=== PATIENT | female | born 1955 | race Caucasian/White ===

== ENCOUNTER → 2017-06-15 07:43 | Outpatient (CLI) | payer OTHER, SELFPAY ==
[2017-06-15 09:18] LABS: Hemoglobin A1c 7.2 % (4.2-6.3)
[2017-06-15 09:19] LABS: ALB/GLOB Ratio 0.9 RATIO (0.9-2.4); AST(SGOT) 13 U/L (15-37); Alanine Aminotransfer ALT/SGPT 18 U/L (13-56); Albumin, Serum 3.3 g/dL (3.2-5.0); Alkaline Phosphatase 57 U/L (45-117); Anion Gap 9 (5-15); BUN 14 mg/dL (7-18); Calcium,Total 8.8 mg/dL (8.5-10.1); Chloride 103 mmol/L (98-107); Creatinine, Serum 0.78 mg/dL (0.55-1.02); EST Glomerular Filtration Rate 80 mL/min (>60); Est Glom Filt Rate - Afr Amer 97 mL/min (>60); Globulin 3.7 g/dL (2.2-4.2); Glucose 144 mg/dL (74-106); Sodium Level 140 mmol/L (136-145)
== END ==
PROVIDERS: Family Provider Family Medicine; PCP Family Medicine; Visit Provider Nurse Practitioner
DX: E11.9 Type 2 diabetes mellitus without complications (principal)
CPT/HCPCS: 36415; 80053; 83036

== ENCOUNTER → 2017-10-01 17:05 | Outpatient (CLI) | payer OTHER, SELFPAY ==
[2017-10-01 18:52] LABS: ALB/GLOB Ratio 0.9 RATIO (0.9-2.4); AST(SGOT) 12 U/L (15-37); Alanine Aminotransfer ALT/SGPT 20 U/L (13-56); Albumin, Serum 3.6 g/dL (3.2-5.0); Alkaline Phosphatase 64 U/L (45-117); Anion Gap 7 (5-15); BUN 17 mg/dL (7-18); BUN/Creat Ratio 21.2 RATIO (10-20); Calcium,Total 9.6 mg/dL (8.5-10.1); Chloride 105 mmol/L (98-107); EST Glomerular Filtration Rate 77 mL/min (>60); Est Glom Filt Rate - Afr Amer 93 mL/min (>60); Globulin 4.1 g/dL (2.2-4.2); Glucose 122 mg/dL (74-106); Hemoglobin A1c 7.5 % (4.2-6.3); Potassium 4.2 mmol/L (3.5-5.1); Protein, Total 7.7 g/dL (6.4-8.2); Sodium Level 139 mmol/L (136-145); Thyroid Stim Hormone (TSH) 1.95 uIU/mL (0.358-3.74)
== END ==
PROVIDERS: Family Provider Family Medicine; PCP Family Medicine; Visit Provider Nurse Practitioner
DX: E11.9 Type 2 diabetes mellitus without complications (principal)
CPT/HCPCS: 36415; 80053; 83036; 84443

== ENCOUNTER → 2017-12-16 16:37 | Outpatient (CLI) | payer OTHER, SELFPAY ==
--- OUTSIDE RECORDS SUMMARY | 2017-12-14 07:55 | XMS RPT_ITS ---
:1955 Author Organization [place] Support Name Relationship Address Phone LASTJM Unavailable [address] + [place] [address] MACHOSANDOR Unavailable [address] + [place] [address] [facility] Unavailable [address] + [place] [address] JM ALMAZAN Unavailable [address] + [place] [address] [facility] Unavailable [address] + [place] [address] JM ALMAZAN Unavailable [address] + [place] [address] [facility] Unavailable [address] + [place] [id number] JM ALMAZAN Unavailable [address] [phone] [place] [address] [facility] Unavailable [address] + [place] [id number] JM ALMAZAN Unavailable [address] [phone] [place] [address] [facility] Unavailable [address] + [place] [phone] JM ALMAZAN Unavailable [address] + [place] [address] [facility] Unavailable [address] + [place] [address] JM ALMAZAN Unavailable [address] + [place] [address] [facility] Unavailable [address] + [place] [address] JM ALMAZAN Unavailable [address] + [place] [address] [facility] Unavailable [address] + [place] [address] JM ALMAZAN Unavailable [address] + [place] [address] [facility] Unavailable [address] + [place] [address] JM ALMAZAN Unavailable [address] + [place] [address] [facility] Un[address] + [place] [address] LOUISA ALMAZAN Unavailable [address] + [place] [address] LAST, LOUISA Unavailable [address] + [place] [address] Care Team Providers Name Role Phone AMBER HUDSON, DR. PUSHPA Gonsalves Attending Unavailable AMBER HUDSON, DR. PUSHPA Gonsalevs Primary Care Unavailable NAUMOFF, PUSHPA CRYSTAL Referring Unavailable NAUMOFF, PUSHPA CRYSTAL Referring Unavailable NAUMOFF, PUSHPA CRYSTAL Referring Unavailable ShookLianne LUMBER DRIVER-C Attending Unavailable NAUMOFF, PUSHPA Primary Care Unavailable Jm Michaud Attending Unavailable NAUMOFF, PUSHPA Primary Care Unavailable Cherie Rodriguez PA-C Attending Unavailable NAUMOFF, PUSHPA Referring Unavailable NAUMOFF, PUSHPA Primary Care Unavailable Lianne Garcia LUMBER DRIVER-C Attending Unavailable Lianne Garcia LUMBER DRIVERLanceC Referring Unavailable NAUMOFF, PUSHPA Primary Care Unavailable Lianne Garcia LUMBER DRIVER-C Attending Unavailable NAUMOFF, PUSHPA Referring Unavailable NAUMOFF, PUSHPA Primary Care Unavailable Lianne Garcia LUMBER DRIVER-C Attending Unavailable Lianne Garcia LUMBER DRIVERLanceC Referring Unavailable NAUMOFF, PUSHPA Primary Care Unavailable Lianne Garcia LUMBER DRIVER-C Attending Unavailable NAUMOFF, PUSHPA Referring Unavailable NAUMOFF, PUSHPA Primary Care Unavailable Lianne Garcia LUMBER DRIVER-C Attending Unavailable NAUMOFF, PUSHPA Referring Unavailable NAUMOFF, PUSHPA Primary Care Unavailable Lianne Garcia LUMBER DRIVERLanceC Attending Unavailable Lianne Garcia LUMBER DRIVERLanceC Referring Unavailable NAUMOFF, PUSHPA Primary Care Unavailable Lianne Garcia LUMBER DRIVER-C Attending Unavailable Lianne Garcia LUMBER DRIVER-C Referring Unavailable PUSHPA CLARK Primary Care Unavailable PROBLEMS PROBLEMS DATE TYPE CONDITION / CODE ATTENDING STATUS SOURCE 10/02/2017 Unknown E11.9 - Type 2 Jose Lianne Gonsalves Active [place] diabetes mellitus LUMBER DRIVER-C [facility] complications / Repository E11.9(ICD-10) 06/26/2017 Unknown E11.59 - Type 2 Isismatthew Lianne Gonsalves Active [place] diabetes mellitus LUMBER DRIVER-C [facility] with other [facility] circulatory Repository complications / E11.59(ICD-10) 06/26/2017 Unknown I10 - Essential Jose Lianne Gonsalves Active [place] (primary) LUMBER DRIVER-C Community hypertension / Hospital I10(ICD-10) Repository 02/12/2017 Unknown N63.0 - Unspecified Rodriguez PA-C, Active [place] lump in unspecified [facility] breast / Hospital N63.0(ICD-10) Repository 01/02/2017 Active Unknown / NA Active [facility] UNK(Unknown) [facility] [place] Repository 02/05/2017 Unknown TYPE 2 DIABETES Lianne Garcia Active [place] MELLITUS WITHOUT LUMBER DRIVER-C Community COMPLICATIONS / Hospital E11.9(ICD-10) Repository 12/21/2016 Active Encounter for NA Active [facility] screening mammogram [facility] for malignant [place] neoplasm of breast Repository / Z12.31(ICD-10) 12/17/2016 Admitting Encounter for AMBER HUDSON, Active [facility] Diagnosis screening for DR. PUSHPA Gonsalves [facility] malignant neoplasm Repository of cervix / Z12.4(ICD-10) PROCEDURES PROCEDURES No Procedure Records FoundRESULTS RESULTS ENDOCRINOLOGY VISIT Observed: 10/02/2017 Status: F Source: [place] REPORT 6:48 [facility] REPOSITORY [place] [facility] [id number] [facility]. [address] [place] [address] [phone] VISITDate of Service: 10/01/17MR#: [id number] Acct: [id number]: KIRILL ALMAZAN Rep #: [id number]: 1955 Provider: Lianne Garcia NPAge/Sex: 62/F [facility]: SignedHPIHistory of present illnessKlaudiarileonie Almazan is a 62 year old female with type 2 diabetes. Currently on jardiance,glimepiride and actos. Reports feeling good. Appetite good.Does have some recent issues with increase in OZZY chidi. as well as recent onset dizziness. Uponquestioning patient has started turmeric and CO Q 10. Also reports luch intake on chips anddiet soda. 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 Follows a diabetic diet, Is compliant with medication and is tolerating withoutside effects.SMBG4 times dailyBG 100-160Self monitoring: YesDietary compliance: Diabetes: goodDiabetes education in past year: YesGlucose testing: demonstrates correct use of meterSick day education - understands ketone testing: YesExamConstGeneral: comfortable, no acute distressNutritional Appearance: overweightOrientation: oriented [id number]: normal to inspection, atraumaticEars: hearing grossly normal bilaterallyMouth: oral mucosae normal, moist mucous membranesTeeth and gingiva: dentition normalEyesGeneral: appearance normal, both eyes and all related structuresEyelids: eyelids normalConjunctivae: conjunctivae normalSclera: sclerae normalPupils: PERRLNeckNeck: normal visual inspection, full ROMNeck mass: NoChestChest palpation AND inspection: deferredRespEffort AND Inspection: able to speak in complete sentences, normal respiratory effort, symmetricchest movementAuscultation: Bilateral: Clear to AuscultationCardioRate: regular rateRhythm: regular rhythmHeart Sounds: S1 normal, S2 normalGIInspection: normal to inspectionAuscultation: normal bowel soundsPalpation: soft, no guardingGUGeneral: deferredSkinGeneral: no rashes or lesions notedWounds: no woundsDiabetic FootPulses: L dorsalis pedis pulse: normal, R dorsalis pedis pulse: normalMonofilament test: Left foot: normal, Right foot: normalNeuroGeneral: gait normal, moves all extremities, normal sensation to monofilamentCranial Nerves: CN's II-XI intact bilaterallyExtremGeneral: normal to inspection, full ROM, normal capillary refillPsychAppearance: well kemptMental Status: mental status grossly normalMood: congruent moodAffect: normal affectAttitude: cooperativeThought Process: normalThought Content: normalJudgment: judgment goodWeight and fatigue symptoms: Denies snoringCardiopulmonary symptoms: Denies chest pain at rest, dyspnea on exertion, lightheadedness ormyalgiasGI symptoms: Denies constipation, diarrhea, nausea/dyspepsia or vomitingOther symptoms: Denies blurry vision or change in visionWeight and fatigue symptoms: Denies snoringCardiopulmonary symptoms: Reports myalgias and dizziness; denies chest pain at rest, dyspnea onexertion or lightheadednessGI symptoms: Denies constipation, diarrhea, nausea/dyspepsia or vomitingOther symptoms: Denies blurry vision or change in visionSelf monitoring: YesDiabetes education in past year: YesGlucose testing: demonstrates correct use of meterSick day education - understands ketone testing: YesPhysical activity: regularIntakeVital Signs10/01/17 Height 5 ft 2 in10/01/17 Weight: 236 lb 4 oz10/01/17 Body Mass Index (BMI) 43.207 Blood Pressure 140/ Blood Pressure Location Lt [id number]/24/18 Blood Pressure Position SittingIntakeVisit Reasons: 3 M FUInterpreter Required: NoAccompanied by: SelfIs patient in pain?: NoAllergiesmeperidine [From Demerol] Allergy (Verified 10/01/17 16:06)UnknownMedicationsatenolol 50 mg tablet 50 mg PO QDAY 02/09/17 [History Confirmed 10/01/17]empagliflozin 25 mg tablet 25 mg PO QDAY 02/09/17 [History Confirmed 10/01/17]glimepiride 1 mg tablet 1 mg PO QDAY tab 02/09/17 [History Confirmed 10/01/17]paroxetine 10 mg tablet 10 mg PO QDAY 02/09/17 [History Confirmed 10/01/17]pioglitazone 45 mg tablet 45 mg PO QDAY 02/09/17 [History Confirmed 10/01/17]cholecalciferol (vitamin D3) 400 unit capsule 400 unit PO QDAY 10/01/17 [History Fggxldtko35/24/18]coenzyme Q10 75 mg capsule 75 mg PO QDAY 10/01/17 [History Confirmed 10/01/17]omega-3 fatty acids 500 mg capsule 500 mg PO QDAY 10/01/17 [History Confirmed 10/01/17]tumeric PO 10/01/17 [History Confirmed 10/01/17]Is last menstrual period known: NoPost menopausal: YesPatient : NoNurse's Note: blood sugars :low : 120high : 147PFSHMedical History Arthritis (Acute)Brain bleed (Acute)Breast lump (Acute)Diabetes type 2, controlled (Acute)History of kidney stones (Acute)Migraine (Acute)Seasonal allergic rhinitis (Acute)Hypertension (Chronic)Surgical History History of (Acute)Hx of hand surgery (Acute)Hx of knee surgery (Acute)Hx of tubal ligation (Acute)S/P breast biopsy, left (Acute)Family History Mother Breast cancerArthritisFather ArthritisDiabetesHypertensionHigh cholesterolBrother AsthmaSocial HistorySmoking Status: Never smokersecond hand exposure: Noalcohol intake: neversubstance use type: does not useseatbelt use: alwaysROSConstConstitutional: Positive for fatigue;no anorexia, body ache, chills, fever(s), frequent falls, decreased energy, malaise, nightsweats, weakness, weight change, sleep problems, abnormal sleep pattern, change in appetite,other, headache(s), snoring or excessive sweatingEyesEyes: No blurry vision, change in vision, double vision, discharge, dry eyes, bulging eyes,floaters, visual disturbances, eye pain, light sensitivity, spots in vision, tunnel vision orotherENTENT: Positive for dizziness/vertigo, nasal congestion and nasal discharge;no abnormal hearing, ear pain, ear discharge, ear pressure, hearing loss, tinnitus, balanceproblems, nosebleed/epistaxis, nasal obstruction, nose pain, sinus pressure, sinus pain, postnasal drip, headache(s), facial pain, dental pain, dry mouth, bad breath, hoarseness, lipswelling, mouth lesions, mouth pain, sore throat, tongue swelling, throat swelling, other,difficulty swallowing or neck painRespRespiratory: Positive for cough;no change in phlegm color, chest congestion, excessive phlegm production, hemoptysis, pain oninspiration, shortness of breath, pain with cough, snoring, stridor, wheezing or otherCardioCardiology: Positive for generalized swelling;no chest pain at rest, chest pain with exertion, leg pain with exertion, excessive sweating,shortness of breath, dyspnea on exertion, irregular heart rhythm, lightheadedness, orthopnea,radiating jaw, neck or arm pain, fast heart rate, slow heart rate, palpitations or otherGastroGI: No abdominal pain, belching, bloating, change in bowel habits, change in stool character,coffee ground emesis, constipation, cramping, diarrhea, heartburn, difficulty swallowing,feeling full early, excessive flatus, incontinent of stools, Vomiting blood/hematemesis, bloodin stool, loose stools, Black,tarry stools, nausea/dyspepsia, pain with swallowing, vomiting orotherGUGenitourinary-Female: No difficulty urinating, burning urination, painful urination, urinaryincontinence, urinary frequency, urinary urgency, urinary hesitancy, urinary retention, bloodin urine, Frequent nighttime urination/ nocturia, post void dribbling, suprapubic fullness,side pain, sexual problems, genital lesions, genital itching, hot flashes, abnormal periods,abnormal vaginal bleeding, absent period, painful periods, light periods, heavy periods,difficulty getting , painful intercourse, pelvic pain, vaginal dryness, vaginal odor,Vaginal Itching or otherMuscMusculoskeletal: Positive for joint pain and body aches;no abnormal walking, back pain, deformity, joint swelling, limited range of motion, loss ofheight, muscle cramps, muscle weakness, decreased muscle mass, neck pain, numbness, radiatingpain into limb, stiffness, tingling or otherSkinSkin: No acne, hair loss, change in hair, nail changes, boil, change in skin color, dry skin,redness, excessive hair growth, yellowing of the skin, lesions, itching, rash, skin pain, skinulcer, sores, skin swelling, wounds or otherBreastBreast: No otherNeuroNeurology: Positive for dizziness;no frequent falls, weakness, visual disturbances, abnormal hearing, headache(s), abnormalwalking, numbness or tinglingPsychPsychiatric: No abnormal sleep pattern, No change in appetiteEndoEndocrine: Positive for fatigue;no other or excessive sweatingAller/ImmAllergy/Immunologic: No lip swelling, tongue swelling, throat swelling, wheezing or itchy eyesAssessment AND PlanProblems1. Controlled type 2 diabetes mellitus without complication, without long-term current use ofinsulin E11.92. Hypertension associated with diabetes E11.59; I72NulbPggnoeu portionsFood selections should be healthyChoose more low carb vegetablesAvoid snacks and desserts.Drink waterExercise dailyEat more fresh foods, not canned or processedEat more slowlyFollow up with PCPAvoid sodiumElevate legs.OrdersOrders:Plan DetailAdditional Comments1. Please schedule follow up in 3 months.2. Lab work one week before appointment.3. Discussed importance of regular exercise and recommend starting or continuing a regularexercise program for good health.4. The patient was encouraged to lose weight for good health5. The importance of monitoring blood sugar regularly was reviewed.6. The importance of monitoring the HBA1c level regularly was reviewed.7. The importance of prper foot care and regularly checking feet to prevent sores and loss oflimbs was reviewed.8. The importance of keeping BP at or below 130/80 to prevent stroke, heart attacks, kidneyfailure, blindness was reviewed.Spent approximately 30 minutes with patient with over 50% of time spent in discussion andcounseling regarding medication adjustment, symptoms and treatment of hypoglycemia, dietadherence, and checking BG before driving.CodingLevel of Care CodeOff vis,est,level 4DiagnosesControlled type 2 diabetes mellitus without complication, without long-term current use ofinsulin E11.9Diabetes mellitus fdc insulin use: without fdc useHypertension associated with diabetes E11.59; F78Qvar Spent (min) 0648 <Electronically signed by Lianne Garcia LUMBER DRIVERLanceC>Date Lianne Garcia NP-CCosigner Signature: Date (if applicable)CC: COMPREHENSIVE METABOLIC Collected: 10/01/2017 Status: F Source: [place] MANDA 5:09 PM [facility] [place] CODE TESTS RESULT OUT OF RANGE REFERENCE UNITS LAB L501.0100 High 74-106 mg/dL GLU 122 Result Comment: Fasting Glucose result from 100 to 125 mg/dL suggests IMPAIRED HOMEOSTASIS per A.D.A. criteria. Please note revised GLUCOSE reference range effective 2017. LAB L501.1000 Normal 7-18 mg/dL BUN 17 LAB L501.1100 Normal 0.55-1.02 mg/dL CREAT,SERUM 0.80 Result Comment: The validity of the calculated GFR AND GFRAA in patients over 70 years has not been determined. Clinical correlation is essential. LAB L501.1110 Normal >60 mL/min EST GFR 77 Result Comment: Non- GFR Calc LAB L501.1115 Normal >60 mL/min EST GFR - AA 93 Result Comment: GFR Calc LAB L501.1300 High 10-20 RATIO BUN/CRE 21.2 LAB L501.1500 Normal 6.4-8.2 g/dL T PROT 7.7 LAB L501.1800 Normal 3.2-5.0 g/dL ALB 3.6 LAB L501.1950 Normal 2.2-4.2 g/dL GLOB 4.1 LAB L501.2000 Normal 0.9-2.4 RATIO A/G 0.9 LAB L501.2200 Normal 8.5-10.1 mg/dL CA 9.6 LAB L501.4100 Low 15-37 U/L AST 12 LAB L501.4305 Normal 45-117 U/L ALK P 64 LAB L501.4405 Normal 13-56 U/L ALT 20 LAB L501.4600 Normal 0.20-1.00 mg/dL T BILI 0.30 LAB L501.5300 Normal 136-145 mmol/L NA 139 LAB L501.5600 Normal 3.5-5.1 mmol/L K 4.2 LAB L501.5900 Normal 98-107 mmol/L CL 105 LAB L501.6100 Normal 21.0-32.0 mmol/L CO2 27.0 LAB L501.6200 Normal 5-15 GAP 7 Performed By: #### L500.4050, L501.9520 #### [facility] [address] [place], [place], [address] THYROID STIM HORMONE Collected: 10/01/2017 Status: F Source: [place] (TSH) 5:09 PM [facility] [place] TYPE CODE TESTS RESULT OUT OF RANGE REFERENCE UNITS LAB L501.9520 Normal 0.358-3.74 uIU/mL TSH 1.95 Performed By: #### L500.4050, L501.9520 #### [facility] [address] [place], [address] HEMOGLOBIN A1C Collected: 10/01/2017 Status: F Source: [place] 5:09 PM [facility] [place] TYPE CODE TESTS RESULT OUT OF RANGE REFERENCE UNITS LAB L501.9985 High 4.2-6.3 % HGB 7.5 A1C Performed By: #### L501.9985 #### [facility] [address] [place], [place], [address] ENDOCRINOLOGY VISIT Observed: 06/25/2017 Status: F Source: [place] REPORT 7:39 PM [facility] [place] [facility] [id number] [facility]. [address] [place] [address] [phone] VISITDate of Service: 06/25/17#: [id number] Acct: [id number]: KIRILL ALMAZAN Rep #: [id number]: 1955 Provider: Lianne Garcia NPAge/Sex: 62/F [facility] [place].WEGStatus: SignedHPIHistory of present illnessKirill Almazan is a 62 year old female with type 2 diabetes. Currently on jardiance,glimepiride and actos. Reports feeling good. Appetite good.At time of visit:-Pt denies symptoms of hypertensive emergency (CP,SOB,CAMACHO, or blurred vision) andhypotension(dizziness or lightheadedness)-Pt denies symptoms of hypoglycemia ( sweaty, confusion, anxiety, tremor, hunger, palpitations)and hyperglycemia ( polydipsia, polyuria)-Pt denies potential medication adverse effect.HypoglycemiaAware of hypoglycemia: yesAble to self treat low BG: YesFrequent low Blood sugar: NoHas supply of glucagon: noSince our last visit she denies excessive thirst, increased frequency of urination, chest painor dyspnea. Follows a diabetic diet, Is compliant with medication and is tolerating withoutside effects.SMBG4 times dailyBG 100-160Weight and fatigue symptoms: Denies snoringCardiopulmonary symptoms: Denies chest pain at rest, dyspnea on exertion, lightheadedness ormyalgiasGI symptoms: Denies constipation, diarrhea, nausea/dyspepsia or vomitingOther symptoms: Denies blurry vision or change in visionPertinent visit history: Denies recent 911 calls or recent visit to ERSelf monitoring: YesDietary compliance: Diabetes: goodDiabetes education in past year: YesGlucose testing: demonstrates correct use of meterSick day education - understands ketone testing: YesExamConstGeneral: comfortable, no acute distressNutritional Appearance: overweightOrientation: oriented [id number]: normal to inspection, atraumaticEars: hearing grossly normal bilaterallyMouth: oral mucosae normal, moist mucous membranesTeeth and gingiva: dentition normalEyesGeneral: appearance normal, both eyes and all related structuresEyelids: eyelids normalConjunctivae: conjunctivae normalSclera: sclerae normalPupils: PERRLNeckNeck: normal visual inspection, full ROMNeck mass: NoChestChest palpation AND inspection: deferredRespEffort AND Inspection: able to speak in complete sentences, normal respiratory effort, symmetricchest movementAuscultation: Bilateral: Clear to AuscultationCardioRate: regular rateRhythm: regular rhythmHeart Sounds: S1 normal, S2 normalGIInspection: normal to inspectionAuscultation: normal bowel soundsPalpation: soft, no guardingGUGeneral: deferredSkinGeneral: no rashes or lesions notedWounds: no woundsDiabetic FootPulses: L dorsalis pedis pulse: normal, R dorsalis pedis pulse: normalMonofilament test: Left foot: normal, Right foot: normalNeuroGeneral: gait normal, moves all extremities, normal sensation to monofilamentCranial Nerves: CN's II-XI intact bilaterallyExtremGeneral: normal to inspection, full ROM, normal capillary refillPsychAppearance: well kemptMental Status: mental status grossly normalMood: congruent moodAffect: normal affectAttitude: cooperativeThought Process: normalThought Content: normalJudgment: judgment goodWeight and fatigue symptoms: Denies snoringCardiopulmonary symptoms: Denies chest pain at rest, dyspnea on exertion, lightheadedness ormyalgiasGI symptoms: Denies constipation, diarrhea, nausea/dyspepsia or vomitingOther symptoms: Denies blurry vision or change in visionIntakeVital Signs06/25/17 Height 5 ft 2 in06/25/17 Weight: 236 lb 6 oz06/25/17 Body Mass Index (BMI) 43.204 Blood Pressure 145/ Blood Pressure Location Lt [id number]/17/18 Blood Pressure Position SittingIntakeVisit Reasons: 3 M FUInterpreter Required: NoAccompanied by: SelfIs patient in pain?: NoAllergiesmeperidine [From Demerol] Allergy (Verified 06/25/17 15:58)UnknownMedicationsatenolol 50 mg tablet 50 mg PO QDAY 02/09/17 [History Confirmed 06/25/17]empagliflozin 25 mg tablet 25 mg PO QDAY 02/09/17 [History Confirmed 06/25/17]glimepiride 1 mg tablet 1 mg PO QDAY tab 02/09/17 [History Confirmed 06/25/17]paroxetine 10 mg tablet 10 mg PO QDAY 02/09/17 [History Confirmed 06/25/17]pioglitazone 45 mg tablet 45 mg PO QDAY 02/09/17 [History Confirmed 06/25/17]Is last menstrual period known: NoPost menopausal: YesPatient : NoNurse's Note: blood sugars :low : 70high : 200PFSHMedical History Arthritis (Acute)Brain bleed (Acute)Breast lump (Acute)Diabetes type 2, controlled (Acute)History of kidney stones (Acute)Migraine (Acute)Seasonal allergic rhinitis (Acute)Hypertension (Chronic)Surgical History History of (Acute)Hx of hand surgery (Acute)Hx of knee surgery (Acute)Hx of tubal ligation (Acute)S/P breast biopsy, left (Acute)Family History Mother Breast cancerArthritisFather ArthritisDiabetesHypertensionHigh cholesterolBrother AsthmaSocial HistorySmoking Status: Never smokersecond hand exposure: Noalcohol intake: neversubstance use type: does not useseatbelt use: alwaysROSConstConstitutional: No anorexia, body ache, chills, fatigue, fever(s), frequent falls, decreasedenergy, malaise, night sweats, weakness, weight change, sleep problems, abnormal sleep pattern,change in appetite, other, headache(s), snoring or excessive sweatingEyesEyes: Positive for other (eye exam 05/26);no blurry vision, change in vision, double vision, discharge, dry eyes, bulging eyes, floaters,visual disturbances, eye pain, light sensitivity, spots in vision or tunnel visionENTENT: No abnormal hearing, ear pain, ear discharge, ear pressure, hearing loss, tinnitus,dizziness/vertigo, balance problems, nosebleed/epistaxis, nasal congestion, nasal obstruction,nose pain, sinus pressure, sinus pain, nasal discharge, post nasal drip, headache(s), facialpain, dental pain, dry mouth, bad breath, hoarseness, lip swelling, mouth lesions, mouth pain,sore throat, tongue swelling, throat swelling, other, difficulty swallowing or neck painRespRespiratory: No cough, change in phlegm color, chest congestion, excessive phlegm production,hemoptysis, pain on inspiration, shortness of breath, pain with cough, snoring, stridor,wheezing or otherCardioCardiology: No chest pain at rest, chest pain with exertion, leg pain with exertion, excessivesweating, shortness of breath, dyspnea on exertion, generalized swelling, irregular heartrhythm, lightheadedness, orthopnea, radiating jaw, neck or arm pain, fast heart rate, slowheart rate, palpitations or otherGastroGI: No abdominal pain, belching, bloating, change in bowel habits, change in stool character,coffee ground emesis, constipation, cramping, diarrhea, heartburn, difficulty swallowing,feeling full early, excessive flatus, incontinent of stools, Vomiting blood/hematemesis, bloodin stool, loose stools, Black,tarry stools, nausea/dyspepsia, pain with swallowing, vomiting orotherGUGenitourinary-Female: No difficulty urinating, burning urination, painful urination, urinaryincontinence, urinary frequency, urinary urgency, urinary hesitancy, urinary retention, bloodin urine, Frequent nighttime urination/ nocturia, post void dribbling, suprapubic fullness,side pain, sexual problems, genital lesions, genital itching, hot flashes, abnormal periods,abnormal vaginal bleeding, absent period, painful periods, light periods, heavy periods,difficulty getting , painful intercourse, pelvic pain, vaginal dryness, vaginal odor,Vaginal Itching or otherMuscMusculoskeletal: No abnormal walking, joint pain, back pain, deformity, joint swelling, limitedrange of motion, loss of height, muscle cramps, muscle weakness, decreased muscle mass, bodyaches, neck pain, numbness, radiating pain into limb, stiffness, tingling or otherSkinSkin: No acne, hair loss, change in hair, nail changes, boil, change in skin color, dry skin,redness, excessive hair growth, yellowing of the skin, lesions, itching, rash, skin pain, skinulcer, sores, skin swelling, wounds or otherBreastBreast: No otherNeuroNeurology: No frequent falls, weakness, visual disturbances, abnormal hearing, headache(s),abnormal walking, numbness or tinglingPsychPsychiatric: No abnormal sleep pattern, No change in appetiteEndoEndocrine: No fatigue, other or excessive sweatingAller/ImmAllergy/Immunologic: No lip swelling, tongue swelling, throat swelling, wheezing or itchy eyesAssessment AND PlanProblems1. Controlled type 2 diabetes mellitus without complication, without long-term current use ofinsulin E11.92. Hypertension associated with diabetes E11.59; D40Axiu DetailAdditional Comments1. Please schedule follow up in 3 months.2. Lab work one week before appointment.3. Discussed importance of regular exercise and recommend starting or continuing a regularexercise program for good health.4. The patient was encouraged to lose weight for good health5. The importance of monitoring blood sugar regularly was reviewed.6. The importance of monitoring the HBA1c level regularly was reviewed.7. The importance of prper foot care and regularly checking feet to prevent sores and loss oflimbs was reviewed.8. The importance of keeping BP at or below 130/80 to prevent stroke, heart attacks, kidneyfailure, blindness was reviewed.Spent approximately 30 minutes with patient with over 50% of time spent in discussion andcounseling regarding medication adjustment, symptoms and treatment of hypoglycemia, dietadherence, and checking BG before driving.CodingLevel of Care CodeOff vis,est,level 4DiagnosesControlled type 2 diabetes mellitus without complication, without long-term current use ofinsulin E11.9Diabetes mellitus roller printer insulin use: without fdc useHypertension associated with diabetes E11.59; V31Rdwo Spent (min) 1939 <Electronically signed by Lianne CISNEROS>Date Lianne CARTERCCosigner Signature: Date (if applicable)CC: HEMOGLOBIN A1C Collected: 06/15/2017 Status: F Source: [place] 7:58 AM [facility] [place] [facility] TYPE CODE TESTS RESULT OUT OF RANGE REFERENCE UNITS LAB L501.9985 High 4.2-6.3 % HGB 7.2 A1C Performed By: #### L501.9985 #### [facility] [address] [place], [id number] COMPREHENSIVE METABOLIC Collected: 06/15/2017 Status: F Source: [place]Y HOLMAN 7:58 AM [facility] [place] [facility] TYPE CODE TESTS RESULT OUT OF RANGE REFERENCE UNITS LAB L501.0100 High 74-106 mg/dL GLU 144 Result Comment: Fasting Glucose result greater than or equal to 126 mg/dL suggests DIABETES MELLITUS per A.D.A. criteria. Please note revised GLUCOSE reference range effective 2017. LAB L501.1000 Normal 7-18 mg/dL BUN 14 LAB L501.1100 Normal 0.55-1.02 mg/dL CREAT,SERUM 0.78 Result Comment: The validity of the calculated GFR AND GFRAA in patients over 70 years has not been determined. Clinical correlation is essential. LAB L501.1110 Normal >60 mL/min EST GFR 80 Result Comment: Non- GFR Calc LAB L501.1115 Normal >60 mL/min EST GFR - AA 97 Result Comment: GFR Calc LAB L501.1300 Normal 10-20 RATIO BUN/CRE 18.0 LAB L501.1500 Normal 6.4-8.2 g/dL T PROT 7.0 LAB L501.1800 Normal 3.2-5.0 g/dL ALB 3.3 LAB L501.1950 Normal 2.2-4.2 g/dL GLOB 3.7 LAB L501.2000 Normal 0.9-2.4 RATIO A/G 0.9 LAB L501.2200 Normal 8.5-10.1 mg/dL CA 8.8 LAB L501.4100 Low 15-37 U/L AST 13 LAB L501.4305 Normal 45-117 U/L ALK P 57 LAB L501.4405 Normal 13-56 U/L ALT 18 Result Comment: Please note revised ALT reference range effective 2017. LAB L501.4600 Normal 0.20-1.00 mg/dL T BILI 0.40 LAB L501.5300 Normal 136-145 mmol/L NA 140 LAB L501.5600 Normal 3.5-5.1 mmol/L K 4.0 LAB L501.5900 Normal 98-107 mmol/L CL 103 LAB L501.6100 Normal 21.0-32.0 mmol/L CO2 28.0 LAB L501.6200 Normal 5-15 GAP 9 Performed By: #### L500.4050 #### [facility] [address] [place], [place], [address] ENDOCRINOLOGY VISIT Observed: 04/14/2017 Status: F Source: [place]Y REPORT 6:59 PM [facility] [place] [facility] [address], [place] [phone] VISITDate of Service: 04/09/17MR#: [id number] Acct: [id number]: KIRILL ALMAZAN Rep #: [id number]: 1955 Provider: Lianne Garcia NPAge/Sex: 62/F [facility]: SignedHPIHistory of present illnessValerileonie Almazan is a 62 year old female with type 2 diabetes. Currently on jardiaance,glimepride and actos. Reports feeling good. Appetite good.At time of visit:-Pt denies symptoms of hypertensive emergency (CP,SOB,CAMACHO, or blurred vision) andhypotension(dizziness or lightheadedness)-Pt denies symptoms of hypoglycemia ( sweaty, confusion, anxiety, tremor, hunger, palpitations)and hyperglycemia ( polydipsia, polyuria)-Pt denies potential medication adverse effect.HypoglycemiaAware of hypoglycemia: yesAble to self treat low BG: YesFrequent low Blood sugar: NoHas supply of glucagon: noSince our last visit she denies excessive thirst, increased frequency of urination, chest painor dyspnea. Follows a diabetic diet, Is compliant with medication and is tolerating withoutside effects.SMBG4 times dailyBG 100-160Weight and fatigue symptoms: Denies snoringCardiopulmonary symptoms: Denies chest pain at rest, dyspnea on exertion, lightheadedness ormyalgiasGI symptoms: Denies constipation, diarrhea, nausea/dyspepsia or vomitingOther symptoms: Denies blurry vision or change in visionPertinent visit history: Denies recent 911 calls or recent visit to ERSelf monitoring: YesDietary compliance: Diabetes: goodDiabetes education in past year: YesGlucose testing: demonstrates correct use of meterSick day education - understands ketone testing: YesExamConstGeneral: comfortable, no acute distressNutritional Appearance: overweightOrientation: oriented [id number]: normal to inspection, atraumaticEars: hearing grossly normal bilaterallyMouth: oral mucosae normal, moist mucous membranesTeeth and gingiva: dentition normalEyesGeneral: appearance normal, both eyes and all related structuresEyelids: eyelids normalConjunctivae: conjunctivae normalSclera: sclerae normalPupils: PERRLNeckNeck: normal visual inspection, full ROMNeck mass: NoChestChest palpation AND inspection: deferredRespEffort AND Inspection: able to speak in complete sentences, normal respiratory effort, symmetricchest movementAuscultation: Bilateral: Clear to AuscultationCardioRate: regular rateRhythm: regular rhythmHeart Sounds: S1 normal, S2 normalGIInspection: normal to inspectionAuscultation: normal bowel soundsPalpation: soft, no guardingGUGeneral: deferredSkinGeneral: no rashes or lesions notedWounds: no woundsDiabetic FootPulses: L dorsalis pedis pulse: normal, R dorsalis pedis pulse: normalMonofilament test: Left foot: normal, Right foot: normalNeuroGeneral: gait normal, moves all extremities, normal sensation to monofilamentCranial Nerves: CN's II-XI intact bilaterallyExtremGeneral: normal to inspection, full ROM, normal capillary refillPsychAppearance: well kemptMental Status: mental status grossly normalMood: congruent moodAffect: normal affectAttitude: cooperativeThought Process: normalThought Content: normalJudgment: judgment goodIntakeVital Signs04/09/17 Height 5 ft 2 in04/09/17 Weight: 234 lb 6 oz04/09/17 Body Mass Index (BMI) 42.801 Blood Pressure 128/ Blood Pressure Location Rt /30/18 Blood Pressure Position SittingIntakeVisit Reasons: 3 M FUInterpreter Required: NoAccompanied by: SelfIs patient in pain?: NoAllergiesmeperidine [From Demerol] Allergy (Verified 04/09/17 16:00)UnknownMedicationsatenolol 50 mg tablet 50 mg PO QDAY 02/09/17 [History Confirmed 04/09/17]empagliflozin 25 mg tablet 25 mg PO QDAY 02/09/17 [History Confirmed 04/09/17]glimepiride 1 mg tablet 1 mg PO QDAY tab 02/09/17 [History Confirmed 04/09/17]paroxetine 10 mg tablet 10 mg PO QDAY 02/09/17 [History Confirmed 04/09/17]pioglitazone 45 mg tablet 45 mg PO QDAY 02/09/17 [History Confirmed 04/09/17]Is last menstrual period known: NoPost menopausal: YesPatient : NoNurse's Note: DIABETES TYPE 2DX : AGE 34LAST EXACERBATION :DKA : NEVERHYPOGLYCEMIA : NEVERER VISIT : NEVERBLOOD SUGARS :LOW : 99HIGH : 174PFSHMedical History Arthritis (Acute)Brain bleed (Acute)Breast lump (Acute)Diabetes type 2, controlled (Acute)History of kidney stones (Acute)Migraine (Acute)Seasonal allergic rhinitis (Acute)Hypertension (Chronic)Surgical History History of (Acute)Hx of hand surgery (Acute)Hx of knee surgery (Acute)Hx of tubal ligation (Acute)S/P breast biopsy, left (Acute)Family History Mother Breast cancerArthritisFather ArthritisDiabetesHypertensionHigh cholesterolBrother AsthmaSocial HistorySmoking Status: Never smokersecond hand exposure: Noalcohol intake: neversubstance use type: does not useseatbelt use: alwaysROSConstConstitutional: No anorexia, body ache, chills, fatigue, fever(s), frequent falls, decreasedenergy, malaise, night sweats, weakness, weight change, sleep problems, abnormal sleep pattern,change in appetite, other, headache(s), snoring or excessive sweatingEyesEyes: No blurry vision, change in vision, double vision, discharge, dry eyes, bulging eyes,floaters, visual disturbances, eye pain, light sensitivity, spots in vision, tunnel vision orotherENTENT: No abnormal hearing, ear pain, ear discharge, ear pressure, hearing loss, tinnitus,dizziness/vertigo, balance problems, nosebleed/epistaxis, nasal congestion, nasal obstruction,nose pain, sinus pressure, sinus pain, nasal discharge, post nasal drip, headache(s), facialpain, dental pain, dry mouth, bad breath, hoarseness, lip swelling, mouth lesions, mouth pain,sore throat, tongue swelling, throat swelling, other, difficulty swallowing or neck painRespRespiratory: No cough, change in phlegm color, chest congestion, excessive phlegm production,hemoptysis, pain on inspiration, shortness of breath, pain with cough, snoring, stridor,wheezing or otherCardioCardiology: Positive for generalized swelling;no chest pain at rest, chest pain with exertion, leg pain with exertion, excessive sweating,shortness of breath, dyspnea on exertion, irregular heart rhythm, lightheadedness, orthopnea,radiating jaw, neck or arm pain, fast heart rate, slow heart rate, palpitations or otherGastroGI: No abdominal pain, belching, bloating, change in bowel habits, change in stool character,coffee ground emesis, constipation, cramping, diarrhea, heartburn, difficulty swallowing,feeling full early, excessive flatus, incontinent of stools, Vomiting blood/hematemesis, bloodin stool, loose stools, Black,tarry stools, nausea/dyspepsia, pain with swallowing, vomiting orotherGUGenitourinary-Female: Positive for urinary frequency;no difficulty urinating, burning urination, painful urination, urinary incontinence, urinaryurgency, urinary hesitancy, urinary retention, blood in urine, Frequent nighttime urination/nocturia, post void dribbling, suprapubic fullness, side pain, sexual problems, genitallesions, genital itching, hot flashes, abnormal periods, abnormal vaginal bleeding, absentperiod, painful periods, light periods, heavy periods, difficulty getting , painfulintercourse, pelvic pain, vaginal dryness, vaginal odor, Vaginal Itching or otherMuscMusculoskeletal: No abnormal walking, joint pain, back pain, deformity, joint swelling, limitedrange of motion, loss of height, muscle cramps, muscle weakness, decreased muscle mass, bodyaches, neck pain, numbness, radiating pain into limb, stiffness, tingling or otherNeuroNeurology: No frequent falls, weakness, visual disturbances, abnormal hearing, headache(s),abnormal walking, numbness or tinglingPsychPsychiatric: No abnormal sleep pattern, No change in appetiteEndoEndocrine: No fatigue, other or excessive sweatingAller/ImmAllergy/Immunologic: No lip swelling, tongue swelling, throat swelling or wheezingAssessment AND PlanProblems1. Hypertension associated with diabetes E11.59; I102. Controlled type 2 diabetes mellitus without complication, without long-term current use ofinsulin E11.9OrdersOrders:Plan DetailAdditional CommentsControl portionsFood selections should be healthyChoose more low carb vegetablesAvoid snacks and desserts.Drink waterExercise dailyEat more fresh foods, not canned or processedEat more slowly1. Please schedule follow up in 3 months.2. Lab work one week before appointment.3. Discussed importance of regular exercise and recommend starting or continuing a regularexercise program for good health.4. The patient was encouraged to lose weight for good health5. The importance of monitoring blood sugar regularly was reviewed.6. The importance of monitoring the HBA1c level regularly was reviewed.7. The importance of prper foot care and regularly checking feet to prevent sores and loss oflimbs was reviewed.8. The importance of keeping BP at or below 130/80 to prevent stroke, heart attacks, kidneyfailure, blindness was reviewed.Spent approximately 30 minutes with patient with over 50% of time spent in discussion andcounseling regarding medication adjustment, symptoms and treatment of hypoglycemia, dietadherence, and checking BG before driving.CodingLevel of Care CodeOff vis,est,level 4DiagnosesHypertension associated with diabetes E11.59; W83Pviakmeijh type 2 diabetes mellitus without complication, without long-term current use ofinsulin E11.9Diabetes mellitus fdc insulin use: without fdc useTime Spent (min) 1859 <Electronically signed by Lianne CISNEROS>Date Lianne CARTERCCosigner Signature: Date (if applicable)CC: HEMOGLOBIN A1C Collected: 04/06/2017 Status: F Source: [place] 7:45 AM [facility] [place] [facility] Order Comment: Order Date: 01/06/17Order Info: [id number] - *HgA1C TYPE CODE TESTS RESULT OUT OF RANGE REFERENCE UNITS LAB L501.9985 High 4.2-6.3 % HGB 7.2 A1C Performed By: #### L501.9985 #### [facility] [address] [place], [address] COMPREHENSIVE METABOLIC Collected: 04/06/2017 Status: F [facility] [place] [facility] Order Comment: Order Date: 01/06/17Order Info: [id number] - *CMP Complete Metabolic PanelOrder Info: [id number] - *Lipid ProfileComments: Fasting 12 hours, may have water. TYPE CODE TESTS RESULT OUT OF RANGE REFERENCE UNITS LAB L501.0100 High 70-110 mg/dL GLU 148 Result Comment: Fasting Glucose result greater than or equal to 126 mg/dL suggests DIABETES MELLITUS per A.D.A. criteria. LAB L501.1000 Normal 7-18 mg/dL BUN 17 LAB L501.1100 Normal 0.55-1.02 mg/dL CREAT,SERUM 0.72 Result Comment: The validity of the calculated GFR AND GFRAA in patients over 70 years has not been determined. Clinical correlation is essential. LAB L501.1110 Normal >60 mL/min EST GFR 87 Result Comment: Non- GFR Calc LAB L501.1115 Normal >60 mL/min EST GFR - AA 105 Result Comment: GFR Calc LAB L501.1300 High 10-20 RATIO BUN/CRE 23.5 LAB L501.1500 Normal 6.4-8.2 g/dL T PROT 7.2 LAB L501.1800 Low 3.4-5.0 g/dL ALB 3.3 Result Comment: Please note revised Albumin AND Globulin reference range effective 2016. LAB L501.1950 Normal 2.2-4.2 g/dL GLOB 3.9 LAB L501.2000 Low 0.9-2.4 RATIO A/G 0.8 LAB L501.2200 Normal 8.5-10.1 mg/dL CA 8.9 LAB L501.4100 Low 15-37 U/L AST 12 LAB L501.4305 Normal 45-117 U/L ALK P 55 LAB L501.4405 Normal 12-78 U/L ALT 19 LAB L501.4600 Normal 0.20-1.00 mg/dL T BILI 0.50 LAB L501.5300 Normal 136-145 mmol/L NA 140 LAB L501.5600 Normal 3.5-5.1 mmol/L K 4.0 LAB L501.5900 Normal 98-107 mmol/L CL 104 LAB L501.6100 Normal 21.0-32.0 mmol/L CO2 28.0 LAB L501.6200 Normal 5-15 GAP 8 Performed By: #### L500.4050 #### [facility] [address] [place], [address] LIPID PROFILE Collected: 04/06/2017 Status: F Source: [place] 7:45 AM [facility] [place] [facility] Order Comment: Order Date: 01/06/17Order Info: [id number] - *CMP Complete Metabolic PanelOrder Info: [id number] - *Lipid ProfileComments: Fasting 12 hours, may have water. TYPE CODE TESTS RESULT OUT OF RANGE REFERENCE UNITS LAB L501.4900 Normal 200 mg/dL CHOL 189 Result Comment: <200 mg/dL Desirable 200-240 mg/dL Borderline >240 mg/dL High Risk LAB L501.5000 Normal mg/dL TRIG 97 Result Comment: The drugs N-Acetylcysteine and Metamizole may falsely depress this assay. Serum Triglycerides Reference Interval Normal <150 mg/dL Borderline high 150 - 199 mg/dL High 200 - 499 mg/dL Very High > or = 500 mg/dL LAB L501.6400 Normal mg/dL HDL 58 Result Comment: The drugs N-Acetylcysteine and Metamizole may falsely depress this assay. Reference Range HDL <40 mg/dL Low HDL Cholesterol HDL >or= 60 mg/dL High HDL Cholesterol LAB L501.6500 Normal 0-130 mg/dL LDL 112 LAB L501.6600 Normal 5-40 mg/dL VLDL 19 Performed By: #### L500.4100 #### [facility] [address] [place], [address] MICROALB:CREAT Collected: 04/06/2017 Status: F Source: TONY RATIO,RANDOM UR 7:45 AM [facility] [place] [facility] Order Comment: Order Date: 01/06/17Order Info: [id number] - *Microalbumin, Creatine Ratio, rand urineComments: Reason: TYPE CODE TESTS RESULT OUT OF RANGE REFERENCE UNITS LAB L501.1200 Normal NO RANGE EST. mg/dL UR 70.60 CREAT LAB L502.0500 Normal NO RANGE EST. mg/L 8.4 MICROALBUMIN ,UR LAB L502.0600 Normal <30 mg/g CRE mg/g CRE 11.8 MALB:CREAT Performed By: #### L502.0250 #### [facility] [address], [address] OFFICE VISIT REPORT Observed: 02/11/2017 Status: F Source: [place] 1:42 PM [facility] [facility], [place] [address]KBUQJZ VISITStatus: SignedPatient: KIRILL ALMAZAN Date of Service: 02/11/17 MR#: [id number]: 1955 Provider: Cherie Rodriguez PA-C Acct:[id number]/Sex: 61/F Loc: BMS.WSAcc: NAUMOFF,ANDREWAssessment AND PlanProblems1. Breast lump in lower inner quadrant N63.0PlanLeave steri-strips in place for 1 week. Obtain routine mammogram at 1 year from previousmammogram. Follow-up as needed.IntakeIntakeVisit Reasons: f/u excisional left breast bx 02/04/2017, cebulInterpreter Required: NoIs patient in pain?: NoAllergiesmeperidine [From Demerol] Allergy (Verified 02/11/17 13:32)UnknownMedicationsatenolol 50 mg tablet 50 mg PO QDAY 02/09/17 [History Confirmed 02/11/17]empagliflozin 25 mg tablet 25 mg PO QDAY 02/09/17 [History Confirmed 02/11/17]glimepiride 1 mg tablet 1 mg PO QDAY tab 02/09/17 [History Confirmed 02/11/17]paroxetine 10 mg tablet 10 mg PO QDAY 02/09/17 [History Confirmed 02/11/17]pioglitazone 45 mg tablet 45 mg PO QDAY 02/09/17 [History Confirmed 02/11/17]PFSHMedical HistoryArthritis (Acute)Brain bleed (Acute)Breast lump (Acute)Diabetes type 2, controlled (Acute)History of kidney stones (Acute)Migraine (Acute)Seasonal allergic rhinitis (Acute)Hypertension (Chronic)Surgical HistoryHistory of (Acute)Hx of hand surgery (Acute)Hx of knee surgery (Acute)Hx of tubal ligation (Acute)S/P breast biopsy, left (Acute)Family HistoryMother Breast cancerArthritisFather ArthritisDiabetesHypertensionHigh cholesterolBrother AsthmaSocial HistorySmoking Status: Never smokersecond hand exposure: Noalcohol intake: neversubstance use type: does not useseatbelt use: alwaysHPIf/u excisional left breast bx 02/04/2017, keily:Details: KIRILL ALMAZAN, is a 61 F who presents to the office today for incision check andsuture removal. Dr. Michaud performed a left breast excisional biopsy on 02/04/2017. Patienttolerated the procedure well. She denies pain/discomfort, drainage. She notes minimal amount ofecchymosis. Pathology demonstrated angiolipoma.ExamChestOther: Left inner lower breast- Incision c/d/i. Slight erythema and ecchymosis. Sutures wereremoved and steri-strips were placed.Quality ReportingMedication Reconciliation (CMS 68)atenolol 50 mg PO QDAYempagliflozin (Jardiance) 25 mg PO QDAYglimepiride 1 mg PO QDAYparoxetine 10 mg PO QDAYpioglitazone 45 mg PO QDAYTobacco Screening (CMS 138)Smoking Status: Never bzayyy31/04/17 1342 <Electronically signed by Cherie Rodriguez PA-C>Date Cherie ZAVALAosigner Signature (if applicable): Date CC: PUSHPA CLARK Status: BREAST BIOPSY Observed: 02/04/2017 Status: F Source: [place] ([facility]) 3:10 PM [facility] [place] [facility] Patient: KIRILL ALMAZAN : 1955 (61/F) Acct Num: [id number] Phys: Keily ESTES,Jm Unit Num: [id number] Loc: LABSPEC Specimen: [id number] Received: 02/05/17 - 1009 Spec Type: BREAST BX TISSUES TISSUES: GROSS DESCRIPTION Received in fixative is one container labeled with the patient's name and designated left breast. The specimen consists of a piece of fibroadipose tissue measuring 1 x 1 x 0.8 cm. The specimen is inked, bisected and submitted entirely in one cassette. / SJ:rogelio 02/05/17 TC:1 CPT: 82364 HEADER OPERATION: Excisional left breast biopsy PRE-OP DIAGNOSIS: Left breast lump TISSUE SUBMITTED: Left breast tissue ESCHEMIC TIME: Less than 1 minute FIXATION TIEM: 26 hours MICROSCOPIC DESCRIPTION Slides are reviewed. MICROSCOPIC DIAGNOSIS Left breast tissue, excisional biopsy: Angiolipoma. SJ:rogelio 02/06/17 Signed Gerhard Wang 02/06/17 <signature on file> Performed By: #### PBRBX ####[facility] [address] [place], [address] CNCO Observed: 01/02/2017 Status: COMPLETED Source: [place] 2:36 PM [facility] REPOSIT[facility] HNO ID: [id number]: Mammography CoordinatorService: (none)Author Type: PhysicianType: LetterFiled: 01/03/2017 11:32 PMNote Text:January 02, 2017 PID: [id number] [id number] [place], [place] [address]Vevd Ms. Almazan,Your recent breast imaging exam on 01/02/2017 showed an abnormal area. Atthis time we recommend further evaluation. This does not necessarily meanthat there is a serious problem in your breast, but it should not beignored.Please contact your physician as soon as possible to discuss the resultsof this exam and decide what the next steps in your medical care shouldbe. If you have already been notified of these findings, please disregardthis letter.Thank you for allowing us to help in meeting your health care needs.Sincerely,Dr. DegrootlInterpreting RadiologistWooster Specialty Center (Abnormal) [facility] Observed: 01/02/2017 Status: F Source: [facility] 2:25 PM [facility] * * *Final Report* * *DATE OF EXAM: Jan 02 2017 2:25PM [facility] [id number] - [facility] LT / REASON: call back right /left /abnormal mammogram * * * * Physician Interpretation * * * * #[id number] - [facility] LTULTRASOUND OF LEFT BREAST: 01/02/2017HISTORY: Call Back Right /Left /Abnormal Mammogramleft us for palp.RESULT:No prior exams were available for comparison.Real-time ultrasound of the left breast was performed.There is a 1.5 cm x 0.8 cm x 1 cm oval mass with an indistinct margin in the left breast at 9 o'clock middle depth 3 cm from the nipple. This oval mass is of mixed echogenicity with internal echoes. This correlates as palpated.IMPRESSION: SUSPICIOUS FINDING - BIOPSY SHOULD BE CONSIDERED - FOLLOW-UP RECOMMENDEDThe 1.5 cm x 0.8 cm x 1 cm oval mass in the left breast is suspicious of malignancy. An ultrasound guided biopsy is recommended.Evelyne Villatoro/hiro:01/02/2017 14:36:59Imaging Technologist: [facility]ila Specialty Centerletter sent: AbnormalUltrasound BI-RADS: 4 Suspicious finding - Biopsy should be consideredTranscriptionist: HiroTranscribe Date/Time: Jan 02 2017 2:07PDictated by : EVELYNE LOPEZ MDThileonela examination was interpreted and the report reviewed and electronically signed by: EVELYNE LOPEZ MD on Jan 02 2017 2:36PM [id number] PROGRESS Observed: 01/02/2017 Status: COMPLETED Source: [place] 2:06 PM [facility] [place] REPOSITORY HNO ID: [id number]: Farideh Amezquitae: (none)Author Type: (none)Type: Progress NotesFiled: 01/02/2017 2:39 PMNote Text: Radiology Service Progress NotePATIENT NAME: Kirill AlmazanMRN: [id number] OF SERVICE: January 02, 2017TIME: 2:06 PMPATIENT IDENTITY VERIFICATION COMPLETED USING TWO (2) METHODS: Patientconfirmed name verbally and Date of .PATIENT GENDER DATA: Female. status: : NoBreastfeeding status: NO.PATIENT RELEVANT IMPLANT DATA REVIEWED: Not ApplicableRADIOLOGY DEPARTMENT: UltrasoundPERIPHERAL IV DATA: Not applicableSIGNED BY: Farideh Amador2016 2:06 PM JOSE JUAN SCREENING Observed: 01/02/2017 Status: F Source: [place] 1:18 PM [facility] REPOSITORY * * *Final Report* * *DATE OF EXAM: Jan 02 2017 1:18PM [facility] 0581 - [facility] SCREENING / REASON: techical repeat right breast no charge * * * * Physician Interpretation * * * *RESULT: #[id number] - [facility] SCREENINGUNILATERAL RIGHT DIGITAL SCREENING MAMMOGRAM WITH CAD: 01/02/2017HISTORY: Techical Repeat Right Breast No Charge.RESULT:TECHNIQUE: The study was acquired using full field digital technology and interpreted from soft copy.Current study was also evaluated with a Computer Aided Detection (CAD).Comparison is made to exams dated: 12/21/2016 mammogram and 02/22/2014 mammogram - [facility].There are scattered fibroglandular elements in the right breast.The repeat RMLO is now satisfactory with no suspicious lesion. The patient still requires the ultrasound of the left breast as described on the original dictation.No significant masses, calcifications, or other findings are seen in the breast.IMPRESSION: NEGATIVEThere is no mammographic evidence of malignancy. Return to annual right mammogram screening schedule is recommended.Ivania Logan M.D.sm/penrad:01/02/2017 14:17:18Imaging Technologist: Yesenia AZEVEDO)(Xavier), [facility] CenterMammogram BI-RADS: 1 NegativeTranscriptionist: Massimo Date/Time: Jan 02 2017 1:04PDictated by: IVANIA LOGAN MDThis examination was interpreted and the report reviewed and electronically signed by: IVANIA LOGAN MD on Jan 02 2017 2:17PM [id number] COMPREHENSIVE METABOLIC Collected: 12/29/2016 Status: F Source: [place] 8:14 AM [facility] [place] Order Comment: Order Date: 12/24/16Order Info: 0786-1 - *CMP Complete Metabolic Panel TYPE CODE TESTS RESULT OUT OF RANGE REFERENCE UNITS LAB L501.0100 High 70-110 mg/dL GLU 143 Result Comment: Fasting Glucose result greater than or equal to 126 mg/dL suggests DIABETES MELLITUS per A.D.A. criteria. LAB L501.1000 Normal 7-18 mg/dL BUN 14 LAB L501.1100 Normal 0.55-1.02 mg/dL CREAT,SERUM 0.74 Result Comment: The validity of the calculated GFR AND GFRAA in patients over 70 years has not been determined. Clinical correlation is essential. LAB L501.1110 Normal >60 mL/min EST GFR 85 Result Comment: Non- GFR Calc LAB L501.1115 Normal >60 mL/min EST GFR - AA 102 Result Comment: GFR Calc LAB L501.1300 Normal 10-20 RATIO BUN/CRE 18.9 LAB L501.1500 Normal 6.4-8.2 g/dL T PROT 7.2 LAB L501.1800 Normal 3.4-5.0 g/dL ALB 3.4 Result Comment: Please note revised Albumin AND Globulin reference range effective 2016. LAB L501.1950 Normal 2.2-4.2 g/dL GLOB 3.8 LAB L501.2000 Normal 0.9-2.4 RATIO A/G 0.9 LAB L501.2200 Normal 8.5-10.1 mg/dL CA 8.7 LAB L501.4100 Low 15-37 U/L AST 9 LAB L501.4305 Normal 45-117 U/L ALK P 59 LAB L501.4405 Normal 12-78 U/L ALT 16 LAB L501.4600 Normal 0.20-1.00 mg/dL T BILI 0.70 LAB L501.5300 Normal 136-145 mmol/L NA 141 LAB L501.5600 Normal 3.5-5.1 mmol/L K 4.1 LAB L501.5900 Normal 98-107 mmol/L CL 104 LAB L501.6100 Normal 21.0-32.0 mmol/L CO2 29.0 LAB L501.6200 Normal 5-15 GAP 8 Performed By: #### L500.4050 #### [facility] [address] [place], [address] HEMOGLOBIN A1C Collected: 12/29/2016 Status: F Source: [place] 8:14 AM [facility] [place] Order Comment: Order Date: 12/24/16Order Info: 4548-4 - *HgA1C TYPE CODE TESTS RESULT OUT OF RANGE REFERENCE UNITS LAB L501.9985 High 4.2-6.3 % HGB 7.7 A1C Performed By: #### L501.9985 #### [facility] [address] [place], [address] MICROALB:CREAT Collected: 12/29/2016 Status: F Source: TONY RATIO,RANDOM UR 8:14 AM [facility] [place] Order Comment: Order Date: 12/24/16Order Info: 0779-1 - *Microalbumin, Creatine Ratio, rand urineComments: Reason: TYPE CODE TESTS RESULT OUT OF RANGE REFERENCE UNITS LAB L501.1200 Normal NO RANGE EST. mg/dL UR 91.80 CREAT LAB L502.0500 Normal NO RANGE EST. mg/L 9.0 MICROALBUMIN ,UR LAB L502.0600 Normal <30 mg/g CRE mg/g CRE 9.8 MALB:CREAT Performed By: #### L502.0250 #### [facility] [address] [place], [address] CNCO Observed: 12/21/2016 Status: COMPLETED Source: [place] 3:13 PM [facility] [place] REPOSITORY HNO ID: [id number]: Mammography CoordinatorService: (none)Author Type: PhysicianType: LetterFiled: 12/24/2016 11:34 PMNote Text:December 21, 2016 PID: [id number] [address] [place], [place] [address]Zhcp Ms. Almazan,Your recent breast imaging exam on 12/21/2016 showed a possible findingthat requires additional imaging studies for a complete evaluation. Mostsuch findings are probably benign (not cancer). Please call [phone] schedule an appointment for these tests if you have not already doneso.Your breast images and report will be kept on file here as part of yourpermanent medical record and are available for your continuing care.Thank you for allowing us to help in meeting your health care needs.Sincerely,Dr. Birch RadiologistWooster Specialty Center (Additional imaging) PROGRESS Observed: 12/21/2016 Status: COMPLETED Source: [place] 2:53 PM [facility] REPOSITORY HNO ID: [id number]: Yesenia Brown RtService: (none)Author Type: (none)Type: Progress NotesFiled: 12/21/2016 2:53 PMNote Text: Radiology Service Progress NotePATIENT NAME: Kirill AlmazanMRN: [id number] OF SERVICE: December 21, 2016TIME: 2:53 PMPATIENT IDENTITY VERIFICATION COMPLETED USING TWO (2) METHODS: Patientconfirmed name verbally and Date of .PATIENT GENDER DATA: Female. status: : NoBreastfeeding status: NO.PATIENT RELEVANT IMPLANT DATA REVIEWED: Not ApplicableRADIOLOGY DEPARTMENT: Women's Health screeningPERIPHERAL IV DATA: Not applicableSIGNED BY: Yesenia Brown RtOct2016 2:53 PM JOSE JUAN SCREENING Observed: 12/21/2016 Status: F Source: [place] 2:46 PM [facility] REPOSITORY * * *Final Report* * *DATE OF EXAM: Dec 21 2016 2:46PM [facility] 0581 - [facility] SCREENING / REASON: screening * * * * Physician Interpretation * * * *RESULT: #[id number] - JOSE JUAN SCREENINGBILATERAL DIGITAL SCREENING MAMMOGRAM WITH CAD: 12/21/2016HISTORY: /Screening Mammogram - patient reports NO breast symptoms /Priors available for comparison /SEE TECH NOTE.RESULT:TECHNIQUE: The study was acquired using full field digital technology and interpreted from soft copy.Current study was also evaluated with a Computer Aided Detection (CAD).Comparison is made to exams dated: 02/22/2014 mammogram and 07/02/2012 mammogram - [facility].There are scattered fibroglandular elements in both breasts.No significant masses, calcifications, or other findings are seen in either breast.IMPRESSION: INCOMPLETE: NEEDS ADDITIONAL IMAGING EVALUATIONThere is no abnormality seen in the left breast to correspond with the area of clinical concern indicated by a triangular marker in the lower inner quadrant, however, ultrasound is recommended.Repeat MLO view of the right breast is required for positioning.Verito Canela M.D.ar/hiro:12/21/2016 15:13:48Imaging Technologist: Yesenia MCCLENDON(Thai)(Xavier), [facility] Servicesletter sent: Additional Imaging NeededMammogram BI-RADS: 0 Incomplete: needs additional imaging evaluationTranscriptionist: HiroTranscribe Date/Time: Dec 21 2016 2:17PDictated by: VERITO CANELA MDThis examination was interpreted and the report reviewed and electronically signed by: VERITO CANELA MD on Dec 21 2016 3:13PM [id number] MOTION PICTURE OPERATOR CYTOLOGY REPORT Observed: 12/17/2016 Status: F Source: [facility] 10:38 AM [facility] REPOSITORY . Pathology ReportsAccession: Collected Date/Time: Received Date/Time: Pathologist:[id number] 12/17/2016 10:38 EDT 12/17/2016 18:00 EDT Retort Operator Cytology ReportSPECIMEN:Specimen Description: Liquid Prep w/ HPVSpecimen: Cervical/EndocervicalScreening or Diagnostic: ScreeningRELEVANT HISTORY:LMP: NOT GIVENPost Menopausal: [id number] ADEQUACY:SATISFACTORY FOR EVALUATIONENDOCERVICAL/TRANSFORMATIONAL ZONE COMPONENT PRESENTINTERPRETATION/RESULTS:NEGATIVE FOR INTRAEPITHELIAL LESION OR MALIGNANCYADJUNCTIVE TESTING:HIGH RISK HPV DNA TESTING ORDERED, REPORT TO FOLLOW UNDER SEPARATE COVERElectronically Signed byPathology report verified by [facility].Screened by: LSElectronically signed by Che BAUMAN (ASCP)Sign-Out Date: 12/20/2016 11:12Performing Lab: [facility], [address] [place], [place] [address]DisclaimerThe Pap test is a screening test for cervical cancer. As evidenced by published data, it is subject to both inherent false negative and false positive results. Your patient's results should be interpreted in context with pertinent clinical history including gynecological examination. Performed By: #### GYCR ####[facility] [place] [address] HPV Collected: 12/17/2016 Status: F Source: [facility] 10:38 AM [facility] REPOSITORY Order Comment: Order placed by AP_HPV_ORDER rule from [id number] TYPE CODE TESTS RESULT OUT OF REFERENCE UNITS RANGE LAB BFHPV(LOINC ) HPV Cervix Source LAB HPVINT(LOIN C) HPV Interp Performed By: #### HPV #### [facility] [address] [place] [address] ALLERGIES ALLERGIES DATE TYPE / CODE NAME / CODE REACTION SEVERITY SOURCE 10/01/2017 Drug meperidine/V10450 Unknown Unknown Tony Allergy/416 4620(RXNORM) [facility] 664337([facility] CT) Repository 12/01/2007 DRUG/982028 MEPERIDINE (PF) Vomiting [facility] 003([facility] CT) Repository ENCOUNTERS ENCOUNTERS ADMIT/DISCHARGE ACCOUNT NUMBER ADMITTING ENCOUNTER LOCATION SOURCE CLASS 12/14/2017 [id number] Ambulatory [facility] ding:LAB Repository 10/01/2017 [id number] Ambulatory [facility] ding:LAB Repository 10/01/2017/10/02/19 [id number] Ambulatory BMSBuilding: [place] 18 BMS.[facility] Repository 06/25/2017/06/26/19 [id number] Ambulatory BMSBuilding: [place] 18 BMS.[facility] Repository 06/15/2017 [id number] Ambulatory [facility] ding:LAB Repository 04/09/2017/04/09/19 [id number] Ambulatory BMSBuilding: [place] 18 BMS.[facility] Repository 04/06/2017 [id number] Ambulatory [facility] ding:LAB Repository 02/11/2017/02/12/20 [id number] Ambulatory BMSBuilding: Tony 17 BMS.[facility] Repository 02/05/2017 [id number] Ambulatory [facility] ding:LABSPEC Repository 01/02/2017/10/25 [id number] Ambulatory [address] Repository 01/02/2017/01/03/20 [id number] Ambulatory [address] Repository 12/29/2016 [id number] Ambulatory [place] [facility] ding:LAB Repository 12/21/2016/12/22/19 [id number] Ambulatory [address] Repository 12/17/2016/12/22/19 [id number] Ambulatory [address] ding:[facility] Foundation Repository PAYERS PAYERS ENCOUNTER GUARANTOR PAYER SUBSCRIBER SOURCE 12/14/2017 JM Gonsalves Primary KIRILL Jimenez [id number] Insurance:AETNAPolicy JORDANDOB: Community DIONI Number: [id number], [place] [id number] Repository [address]Nda: ([phone]) Date:8807-40-64XP [phone] () [id number] [place] [address]DG: 12/14/2017 Secondary NOT GIVENUNK [place] Insurance:SELF PAY [facility] Number: Effective Repository Date:2017-12-14 10/01/2017 JM Gonsalves Primary KIRILL Jimenez [id number] Insurance:AETNAPolicy JORDANDOB: Community DIONI Number: [id number], [place] [id number] Repository [address]Djr: ([phone]) Date:4509-35-17TV [phone] () [phone] [place] [address]II: 10/01/2017 Secondary NOT GIVENUNK [place] Insurance:SELF PAY [facility] Number: Effective Repository Date:2017-09-28 10/01/2017 JM Gonsalves Primary KIRILL Jimenez [id number] Insurance:AETNAPolicy JORDANDOB: Community DIONI Number: [id number], [place] [id number] Repository [address]Cym: ([phone]) Date:2668-41-42LQ [phone] (HP) [id number] [place] [address]EC: 10/01/2017 Secondary NOT GIVENUNK [place] Insurance:SELF PAY [facility] Effective Repository Date:2017-10-01 06/25/2017 JM Gonsalves Primary KIRILL Jimenez [id number] Insurance:AETNAPolicy JORDANDOB: Community DIONI Number: [id number], [place] [id number] Repository [address]Xfm: Date:7465-44-12SU [phone] [id number] [place] 0-4 (HP) [phone]: 06/25/2017 Secondary NOT GIVENUNK [place] Insurance:SELF PAY [facility] Number: Effective Repository Date:2017-06-25 06/15/2017 JM Gonsalves Primary KIRILL Jimenez [id number] Insurance:AETNAPolicy JORDANDOB: Community DIONI Number: [id number], [place] [id number] Repository [address]Hdo: Date:5774-16-11OF [phone]~33 [id number] [place] 0-4 (HP) [phone]: 06/15/2017 Secondary NOT GIVENUNK [place] Insurance:SELF PAY [facility] Number: Effective Repository Date:2017-06-15 04/09/2017 Jm Gonsalves Primary KIRILL Jimenez [id number] Insurance:AETNAPolicy JORDANDOB: Community Dioni Number: [id number] [place], [place] [id number] Repository [address]Xwj: ([phone]) Date:4203-48-06RN [phone] (HP) [id number] [place] [address]FM: 04/09/2017 Secondary NOT GIVENUNK [place] Insurance:SELF PAY [facility] Number: Effective Repository Date:2017-03-12 04/06/2017 Jm Gonsalves Primary KIRILL Jimenez [id number] Insurance:AETNAPolicy JORDANDOB: Community Dioni Number: [id number] Beach, [place] [id number] Repository [address]Gmm: (330) Date:9009-50-36WH [phone] () [id number] REYES [address]EL: 04/06/2017 Secondary NOT GIVENUNK [place] Insurance:SELF PAY [facility] Number: Effective Repository Date:2017-04-06 02/11/2017 Jm Gonsalves Primary KIRILL Jimenez [id number] Insurance:ANTHEMPolicy JORDANDOB: Community Dioni Number: [id number] [place], [place] [id number] Repository [address]Hiu: (330) Date:2346-88-23LW [phone] () 113528BCSMBNK, [place] [address]IS: 02/11/2017 Secondary NOT GIVENUNK [place] Insurance:SELF PAY [facility] Number: Effective Repository Date:2017-02-09 02/05/2017 JM Primary KIRILL Jimenez [id number] Insurance:ANTHEMPolicy JORDANDOB: Community DIONI Number: [id number], [place] [id number] Repository [address]Dyw: (330) Date:9521-10-94HG [phone] () 158[address]KZAN[place], [place] [address]IC: 12/29/2016 JM Gonsalves Primary KIRILL Jimenez [id number] Insurance:ANTHEMPolicy JORDANDOB: Community DIONI Number: [id number], [place] [id number] Repository [address]Qhz: (330) Date:6376-00-40WS [phone] () [id number], [place] [address]YM: 12/17/2016 [facility] A [facility], 1927[facility]1982DOB: Insurance:ANTHEM BLUE JORDANDOB: Foundation [id number] CROSS COMMERCIALPolicy [id number] Repository W DIONI Number: 1 W DIONI UMAÑA ID [id number] [place] [id number]: (814) Date:2016-12-17Tel: [phone] [phone] ()Tel: ([phone]) Name:SAGAR REYES () (WP) [id number] [place] 000-0000 (WP) [phone]:
[2017-12-16 18:06] LABS: ALB/GLOB Ratio 0.8 RATIO (0.9-2.4); AST(SGOT) 11 U/L (15-37); Alanine Aminotransfer ALT/SGPT 20 U/L (13-56); Albumin, Serum 3.4 g/dL (3.2-5.0); Alkaline Phosphatase 61 U/L (45-117); Anion Gap 5 (5-15); BUN 20 mg/dL (7-18); BUN/Creat Ratio 23.7 RATIO (10-20); Calcium,Total 9.1 mg/dL (8.5-10.1); Chloride 105 mmol/L (98-107); Creatinine, Serum 0.84 mg/dL (0.55-1.02); EST Glomerular Filtration Rate 73 mL/min (>60); Est Glom Filt Rate - Afr Amer 88 mL/min (>60); Glucose 145 mg/dL (74-106); Potassium 4.1 mmol/L (3.5-5.1); Protein, Total 7.4 g/dL (6.4-8.2); Sodium Level 139 mmol/L (136-145)
== END ==
PROVIDERS: Family Provider Family Medicine; PCP Family Medicine; Referring Provider Nurse Practitioner; Visit Provider Nurse Practitioner
DX: E11.9 Type 2 diabetes mellitus without complications (principal)
CPT/HCPCS: 36415; 80053; 83036

== ENCOUNTER → 2018-03-15 07:42 | Outpatient (CLI) | payer OTHER, SELFPAY ==
[2018-03-15 08:47] LABS: ALB/GLOB Ratio 0.9 RATIO (0.9-2.4); AST(SGOT) 15 U/L (15-37); Alanine Aminotransfer ALT/SGPT 22 U/L (13-56); Albumin, Serum 3.3 g/dL (3.2-5.0); Alkaline Phosphatase 54 U/L (45-117); Anion Gap 7 (5-15); BUN 16 mg/dL (7-18); BUN/Creat Ratio 18.9 RATIO (10-20); Calcium,Total 8.7 mg/dL (8.5-10.1); Chloride 104 mmol/L (98-107); Cholesterol 210 mg/dL (200); Creatinine, Serum 0.85 mg/dL (0.55-1.02); EST Glomerular Filtration Rate 72 mL/min (>60); Est Glom Filt Rate - Afr Amer 88 mL/min (>60); Globulin 3.6 g/dL (2.2-4.2); Glucose 143 mg/dL (74-106); High Density Lipoprotein 61 mg/dL; Potassium 4.2 mmol/L (3.5-5.1); Protein, Total 6.9 g/dL (6.4-8.2); Sodium Level 140 mmol/L (136-145); Triglycerides 112 mg/dL; Very Low Density Lipoprotein 22 mg/dL (5-40)
[2018-03-15 09:00] LABS: Microalbumin,Random Urine 6.2 mg/L (NO RANGE EST.)
[2018-03-15 09:21] LABS: Hemoglobin A1c 7.8 % (4.2-6.3)
== END ==
PROVIDERS: Family Provider Family Medicine; PCP Family Medicine; Referring Provider Nurse Practitioner; Visit Provider Nurse Practitioner
DX: E11.9 Type 2 diabetes mellitus without complications (principal)
CPT/HCPCS: 36415; 80053; 80061; 82043; 82570; 83036

== ENCOUNTER → 2018-05-24 07:43 | Outpatient (CLI) | payer OTHER, SELFPAY ==
[2018-03-18 15:31] VITALS: BMI 43.5
[2018-05-24 08:52] LABS: Microalbumin,Random Urine 16.6 mg/L (NO RANGE EST.); Microalbumin:Creatinine Ratio 17.4 mg/g CRE (<30 mg/g CRE)
[2018-05-24 08:57] LABS: Hemoglobin A1c 7.2 % (4.2-6.3)
[2018-05-24 09:06] LABS: AST(SGOT) 13 U/L (15-37); Alanine Aminotransfer ALT/SGPT 20 U/L (13-56); Albumin, Serum 3.5 g/dL (3.2-5.0); Alkaline Phosphatase 56 U/L (45-117); Anion Gap 6 (5-15); BUN 15 mg/dL (7-18); BUN/Creat Ratio 18.4 RATIO (10-20); Calcium,Total 9.1 mg/dL (8.5-10.1); Chloride 106 mmol/L (98-107); Creatinine, Serum 0.82 mg/dL (0.55-1.02); EST Glomerular Filtration Rate 76 mL/min (>60); Est Glom Filt Rate - Afr Amer 91 mL/min (>60); Globulin 3.6 g/dL (2.2-4.2); Glucose 139 mg/dL (74-106); Potassium 4.5 mmol/L (3.5-5.1); Protein, Total 7.1 g/dL (6.4-8.2); Sodium Level 141 mmol/L (136-145)
[2018-05-26 09:22] LABS: Vitamin D,25 Hydroxy 21.9 ng/mL (29.95-100.01)
== END ==
PROVIDERS: Family Provider Family Medicine; PCP Family Medicine; Referring Provider Nurse Practitioner; Visit Provider Nurse Practitioner
DX: E11.65 Type 2 diabetes mellitus with hyperglycemia (principal)
CPT/HCPCS: 36415; 80053; 82043; 82306; 82570; 83036; 84443

== ENCOUNTER → 2018-10-11 07:51 | Outpatient (CLI) | payer OTHER, SELFPAY ==
[2018-06-03 15:22] VITALS: BMI 43.2
[2018-10-11 08:35] LABS: Hemoglobin A1c 7.2 % (4.2-6.3)
[2018-10-11 08:48] LABS: AST(SGOT) 12 U/L (15-37); Alanine Aminotransfer ALT/SGPT 19 U/L (13-56); Albumin, Serum 3.5 g/dL (3.2-5.0); Alkaline Phosphatase 64 U/L (45-117); Anion Gap 6 (5-15); BUN 18 mg/dL (7-18); BUN/Creat Ratio 19.7 RATIO (10-20); Calcium,Total 9.1 mg/dL (8.5-10.1); Chloride 105 mmol/L (98-107); Cholesterol 205 mg/dL (200); Creatinine, Serum 0.91 mg/dL (0.55-1.02); EST Glomerular Filtration Rate 66 mL/min (>60); Est Glom Filt Rate - Afr Amer 80 mL/min (>60); Globulin 3.4 g/dL (2.2-4.2); Glucose 162 mg/dL (74-106); High Density Lipoprotein 59 mg/dL; Potassium 4.4 mmol/L (3.5-5.1); Protein, Total 6.9 g/dL (6.4-8.2); Sodium Level 141 mmol/L (136-145); Triglycerides 142 mg/dL
[2018-10-11 08:49] LABS: Very Low Density Lipoprotein 28 mg/dL (5-40)
[2018-10-11 13:47] LABS: Vitamin D,25 Hydroxy 31.4 ng/mL (29.95-100.01)
== END ==
PROVIDERS: Family Provider Family Medicine; PCP Family Medicine; Referring Provider Nurse Practitioner; Visit Provider Nurse Practitioner
DX: E11.65 Type 2 diabetes mellitus with hyperglycemia (principal)
CPT/HCPCS: 36415; 80053; 80061; 82306; 83036

== ENCOUNTER → 2019-01-17 08:01 | Outpatient (CLI) | payer OTHER, SELFPAY ==
[2018-06-03 15:22] VITALS: BMI 43.2
[2019-01-17 09:27] LABS: Hemoglobin A1c 6.8 % (4.2-6.3)
[2019-01-17 09:32] LABS: Cholesterol 220 mg/dL (200); High Density Lipoprotein 58 mg/dL; Triglycerides 121 mg/dL; Very Low Density Lipoprotein 24 mg/dL (5-40)
[2019-01-19 09:47] LABS: Vitamin D,25 Hydroxy 32.8 ng/mL (29.95-100.01)
== END ==
PROVIDERS: Family Provider Family Medicine; PCP Family Medicine; Referring Provider Nurse Practitioner; Visit Provider Nurse Practitioner
DX: E11.9 Type 2 diabetes mellitus without complications (principal)
CPT/HCPCS: 36415; 80061; 82306; 83036

== ENCOUNTER → 2019-04-25 07:45 | Outpatient (CLI) | payer BC, SELFPAY ==
[2018-06-03 15:22] VITALS: BMI 43.2
[2019-04-25 09:39] LABS: ALB/GLOB Ratio 0.9 RATIO (0.9-2.4); AST(SGOT) 15 U/L (15-37); Alanine Aminotransfer ALT/SGPT 28 U/L (13-56); Albumin, Serum 3.4 g/dL (3.2-5.0); Alkaline Phosphatase 57 U/L (45-117); Anion Gap 5 (5-15); BUN 13 mg/dL (7-18); BUN/Creat Ratio 17.6 RATIO (10-20); Calcium,Total 9.2 mg/dL (8.5-10.1); Chloride 104 mmol/L (98-107); Cholesterol 190 mg/dL (200); Creatinine, Serum 0.74 mg/dL (0.55-1.02); EST Glomerular Filtration Rate 84 mL/min (>60); Est Glom Filt Rate - Afr Amer 102 mL/min (>60); Globulin 3.6 g/dL (2.2-4.2); Glucose 183 mg/dL (74-106); Hemoglobin A1c 7.5 % (4.2-6.3); High Density Lipoprotein 62 mg/dL; Sodium Level 140 mmol/L (136-145); Triglycerides 116 mg/dL; Very Low Density Lipoprotein 23 mg/dL (5-40)
[2019-04-25 09:48] LABS: Microalbumin,Random Urine 84.1 mg/L (NO RANGE EST.)
== END ==
PROVIDERS: PCP Family Medicine; Referring Provider Nurse Practitioner; Visit Provider Nurse Practitioner
DX: E11.9 Type 2 diabetes mellitus without complications (principal)
CPT/HCPCS: 36415; 80053; 80061; 82043; 83036

== ENCOUNTER 2020-05-19 09:26 | Outpatient (RCR) | payer BC, SELFPAY ==
[2020-04-07 14:23] VITALS: BMI 44.9
[2020-05-19] MEDS: COVID-19 VACC, MRNA(PFIZER)/PF 30 MCG/0.3 ML SYRINGE IM (07:04)
[2020-06-09] MEDS: COVID-19 VACC, MRNA(PFIZER)/PF 30 MCG/0.3 ML SYRINGE IM (07:04)
== END 2020-05-19 23:59 ==
LOC: IMMUN 09:26
PROVIDERS: PCP Family Medicine; Visit Provider Family Medicine
DX: Z23 Encounter for immunization (principal)
CPT/HCPCS: 0001A; 0002A; 91300

== ENCOUNTER → 2020-06-22 09:18 | Outpatient (CLI) | payer BC, SELFPAY ==
[2020-06-07 15:23] VITALS: BMI 43.9
--- NOTE | 2020-06-22 09:21 | US_ITS ---
STUDY: ULTRASOUND BREAST - RIGHT REASON FOR EXAM: Female, 65 years old. Right axillary mass. TECHNIQUE: Axial and longitudinal images of the RIGHT breast were performed with a high resolution ultrasound transducer. # OF IMAGES: 63 COMPARISON: Comparison is made with prior examination dated 05/04/2020. FINDINGS: RIGHT Breast: There is a 2.7 cm x 1.2 cm x 0.9 cm lymph node with a fatty hilum. US/Breast Limited Unilateral IMPRESSION: 2.7 cm x 1.2 cm x 0.9 cm right axillary lymph node. ASSESSMENT CATEGORY: BIRADS Category 2: Benign. A letter regarding these results will be sent to the patient by the facility within 30 days. Electronically Signed: Juanito Willoughby MD at 13:55 EDT , Service support ,
== END ==
PROVIDERS: PCP Family Medicine; Referring Provider Surgery; Visit Provider Surgery
DX: N64.89 Other specified disorders of breast (principal); Z80.3 Family history of malignant neoplasm of breast
CPT/HCPCS: 76642

== ENCOUNTER → 2020-06-24 10:28 | Outpatient (CLI) | payer BC, SELFPAY ==
--- NOTE | 2020-06-24 09:50 | ASPS_PTH ---
PATIENT: KIRILL NI LOC: [facility] U#:[id number] AGE/SX: 69/F ROOM: RE06/24/[address]: Dr. Binu Michaud MD : 1955 BED: DIS: SPEC #: [id number] RECD: 06/24/20 10:23 STATUS: ZEUS RETrang #: [id number] RONNELL: 06/24/20 09:[address]: Binu Michaud DEPT: CYTOLOGY RECD BY: Nilsa Carrasco ENTERED: 06/24/20 12:21 SP TYPE: ASPIRATION OTHR DR: Dr. Carlos Vivas MD Tissues: Axillary lymph node, NOS Procedures: Special Stain Group II Cytology Other HEADER OPERATION: Fine needle aspiration right axilla PRE-OP DIAGNOSIS: Right axillary enlarged lymph node TISSUE SUBMITTED: Right axillary lymph node slides x8 DIAGNOSIS CYTOLOGY Fine needle aspiration, right axillary lymph node (smears): Polymorphous lymphocytes and mature adipose. See comment. AM:rogelio 06/27/2020 COMMENT Clinical correlation is necessary. CYTOLOGY STUDY Slides are reviewed. CYTOLOGY GROSS Received are eight smears labeled with the patient's name and designated per the requisition as right axillary lymph node. Submitted for staining. / rogelio 06/24/20 TC:5 CPT: 96067
== END ==
PROVIDERS: PCP Family Medicine; Referring Provider Surgery; Visit Provider Surgery
DX: R59.9 Enlarged lymph nodes, unspecified (principal)
CPT/HCPCS: 88161; 88313

== ENCOUNTER 2020-06-29 07:41 | Day surgery (SDC) | payer BC, SELFPAY ==
[2020-06-07 15:23] VITALS: BMI 43.9
--- NOTE | 2020-06-23 12:18 | EKG12_ITS ---
Test Reason : PREOP Blood Pressure : / mmHG Vent. Rate : 061 BPM Atrial Rate : 061 BPM P-R Int : 172 ms QRS Dur : 088 ms QT Int : 424 ms P-R-T Axes : 010 -03 021 degrees QTc Int : 426 ms Normal sinus rhythm Normal ECG Confirmed by LAURA ESTES, DION ([id number]), marketing editor DOMITILA SUAREZ ([id number]) on 06/24/2020 11:54:33 AM Referred By: Binu Michaud Confirmed By:DION SANCHEZ MD
[2020-06-23 13:42] LABS: Hematocrit 43.4 % (37-47); Hemoglobin 13.8 g/dL (12.0-15.0); Mean Corp Hgb Conc 31.8 g/dL (32-36); Mean Corpuscular Hgb 30.7 pg (27.0-32.0); Mean Corpuscular Volume 96.7 fL (81-99); Mean Platelet Vol. 11.7 fl (6.2-12.0); Platelet Count 264 K/mm3 (150-450); RBC Distribution Width SD 46.4 fl (35.1-43.9); Red Blood Count 4.49 M/mm3 (4.2-5.4); White Blood Count 7.5 K/mm3 (4.4-11.0)
[2020-06-23 14:11] LABS: Anion Gap 3 (5-15); BUN 15 mg/dL (7-18); Calcium,Total 9.6 mg/dL (8.5-10.1); Chloride 105 mmol/L (98-107); Creatinine, Serum 0.75 mg/dL (0.55-1.02); EST Glomerular Filtration Rate 83 mL/min (>60); Est Glom Filt Rate - Afr Amer 100 mL/min (>60); Glucose 82 mg/dL (74-106); Sodium Level 138 mmol/L (136-145)
[2020-06-29] VITALS (8 sets, daily range): BP systolic 120–148; BP diastolic 61–96; PULSE 62–72; RESP 16; TEMP 36.3–36.8; O2SAT 94–98; BMI 42.9
--- NOTE | 2020-06-29 | BREAST_PTH ---
PATIENT: KIRILL NI LOC: [facility] U#:[id number] AGE/SX: 65/F ROOM: RE06/29/[address]: Dr. Binu Michaud MD : 1955 BED: DIS: 06/29/2020 SPEC #: [id number] RECD: 06/29/20 11:20 STATUS: ZEUS EVANSTrang #: [id number] RONNELL: 06/29/20 00:[address]: Binu Michaud DEPT: SURGICAL PATHOLOGY RECD BY: Mely Gomez ENTERED: 06/29/20 13:21 SP TYPE: BREAST OTHR DR: Dr. Carlos Vivas MD Tissues: Right breast, NOS Procedures: Surgery Specimen Level V HEADER OPERATION: Right breast stereotactic wire localization lumpectomy PRE-OP DIAGNOSIS: Radial scar of right breast TISSUE SUBMITTED: Right breast tissue, wire - lateral, short suture - superior, long suture - anterior MICROSCOPIC DIAGNOSIS Right breast, wire localization lumpectomy: Florid intraductal hyperplasia without atypia. Fibrocystic changes. 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 Focal microcalcifications. Focal fibrosis and foreign body giant cell reaction, consistent with previous biopsy site. Negative for malignancy. See comment. SJ:rg 07/04/2020 COMMENT Correlation with clinical findings and appropriate follow up are necessary. Case has been reviewed in consultation with Dr. Roberts who concurs with the above diagnosis. IDC:AM MICROSCOPIC DESCRIPTION Slides are reviewed. GROSS DESCRIPTION Received fresh for OR consultation labeled with the patient's name is a specimen designated right breast. The specimen consists of a piece of fibroadipose tissue with needle localization measuring 5 x 5.5 x 1.5 cm. The specimen is oriented as follows: wire - lateral, short suture - superior, long suture - anterior. The specimen is inked as follows: anterior - yellow, posterior - black, superior - blue, inferior - green, medial - red and lateral - orange. Serial sections reveal a clip. No mass lesion is identified. This clip is 1.5 cm away from the closest superior and lateral margins. This information is conveyed to the surgeon intraoperatively. Sections of the specimen reveal turner-yellow fibroadipose cut surfaces. Rn Concurrent Review sections are submitted in ten cassettes as follows: 1 - perpendicular medial, inferior, anterior and posterior margins, 2 & 3 - areas of clip with surround area including perpendicular superior and lateral margins, 4-10 - hr representative sections from the other area. Almost 90% of the specimen is submitted. Sections will be submitted after additional fixation. / ZITA:rogelio 06/30/20 TC:5 CPT: 47085, 03988
--- NOTE | 2020-06-29 09:52 | PCM.HP.BLA ---
Problem List (1) Radial scar of right breast Status: Acute History and Physical Date of Admission: 06/29/20 Intake Intake Visit Reasons: FNA RIGHT AXILLA Chief Complaint: FNA right axillary LN [employer] Combination Required: No Is patient in pain?: No Allergies meperidine [From Demerol] Allergy (Verified 06/24/20 09:40) Unknown Medications atenolol 50 mg tablet 50 mg PO QDAY 02/09/17 [History Confirmed 06/24/20] paroxetine HCl 10 mg tablet 10 mg PO QDAY 02/09/17 [History Confirmed 06/24/20] atorvastatin 10 mg tablet 10 mg PO DAILY #30 tablet 12/31/19 [Rx Confirmed 06/24/20] flash glucose sensor See Rx Instructions .ROUTE .MEDSUPPLY #2 each 04/07/20 [Rx Confirmed 06/24/20] glimepiride 4 mg tablet 4 mg PO BID #180 tablet 04/07/20 [Rx Confirmed 06/24/20] pen needle, diabetic 32 gauge x /32 See Rx Instructions .ROUTE .MEDSUPPLY #50 each 04/07/20 [Rx Confirmed 06/24/20] amlodipine 10 mg tablet 5 mg PO DAILY tablet 06/07/20 [History Confirmed 06/24/20] meloxicam 7.5 mg tablet 7.5 mg PO BID PRN tablet 06/07/20 [History Confirmed 06/24/20] nystatin 100,000 unit/gram topical powder 1 applic TOPICAL BID #30 gm 06/07/20 [Rx Confirmed 06/24/20] Insulin Glargine,Hum.rec.anlog [Lantus Solostar U-100 Insulin] 26 unit SC DAILY 06/22/20 [History Confirmed 06/24/20] Is last menstrual period known: No Post menopausal: Yes Patient : No PFS Medical History (Updated 06/24/20 @ 10:[address] Binu Michaud MD) Axillary adenopathy (Acute) Radial scar of right breast (Acute) Arthritis (Acute) Brain bleed (Acute) Breast lump (Acute) Diabetes type 2, controlled (Acute) History of kidney stones (Acute) Migraine (Acute) Seasonal allergic rhinitis (Acute) Hypertension (Chronic) Surgical History History of (Acute) Hx of hand surgery (Acute) Hx of knee surgery (Acute) Hx of tubal ligation (Acute) S/P breast biopsy, left (Acute) Family History Mother Breast cancer Arthritis Father Arthritis Diabetes Hypertension High cholesterol Brother Asthma Social History (Updated 06/24/20 @ 10:[address] Binu Michaud MD) second hand exposure: No alcohol intake: never substance use type: does not use seatbelt use: always HPI HPI HPI: KIRILL NI, is a 65 F who presents to the office today for ongoing surgical discussion regarding biopsy-proven radial scar 7 o'clock position right breast. Since my previous office note of May 15, 2020 I had requested a bilateral breast MRI but insurance declined. I was able to obtain a right axillary ultrasound demonstrating a solitary enlarged lymph node. She presents today for an ultrasound-guided fine-needle aspiration of this enlarged lymph node in the right axilla as it may help direct her care. June 22, 2020 [facility] Imaging Services [address] [place] [address] Breast Limited Unilateral MR#: [id number]:[id number] Name: KIRILL NI ANNRep #:[id number] : [id number] From: Juanito Willoughby MD PCP:Dr. Carlos Vivas MD Status:REG CLI Study:Breast Limited Unilateral Date of Exam:06/22/20 Exam#[id number] Ordering Dr: Binu Michaud MD STUDY: ULTRASOUND BREAST - RIGHT REASON FOR EXAM: Female, 65 years old. Right axillary mass. TECHNIQUE: Axial and longitudinal images of the RIGHT breast were performed with a high resolution ultrasound transducer. # OF IMAGES: 63 COMPARISON: Comparison is made with prior examination dated 05/04/2020. FINDINGS: RIGHT Breast: There is a 2.7 cm x 1.2 cm x 0.9 cm lymph node with a fatty hilum. US/Breast Limited Unilateral IMPRESSION: 2.7 cm x 1.2 cm x 0.9 cm right axillary lymph node. ASSESSMENT CATEGORY: BIRADS Category 2: Benign. A letter regarding these results will be sent to the patient by the facility within 30 days. Electronically Signed: Juanito Willoughby MD at 13:55 EDT , Service support , Intake Visit Reasons: RADIAL SCARRING Chief Complaint: radial scar right breast [employer] Combination Required: No Is patient in pain?: No Allergies meperidine [From Demerol] Allergy (Verified 06/07/20 15:24) Unknown Medications atenolol 50 mg tablet 50 mg PO QDAY 02/09/17 [History Confirmed 06/07/20] paroxetine HCl 10 mg tablet 10 mg PO QDAY 02/09/17 [History Confirmed 06/07/20] cholecalciferol (vitamin D3) 10 mcg (400 unit) capsule 400 unit PO QDAY 10/01/17 [History Confirmed 06/07/20] omega-3 fatty acids 500 mg capsule 500 mg PO QDAY 10/01/17 [History Confirmed 06/07/20] atorvastatin 10 mg tablet 10 mg PO DAILY #30 tab 12/31/19 [Rx Confirmed 06/07/20] flash glucose sensor See Rx Instructions .ROUTE .MEDSUPPLY #2 ea 04/07/20 [Rx Confirmed 06/07/20] glimepiride 4 mg tablet 4 mg PO BID #180 tab 04/07/20 [Rx Confirmed 06/07/20] insulin glargine 100 unit/mL (3 mL) subcutaneous pen 40 unit SC BID #15 ml 04/07/20 [Rx Confirmed 06/07/20] pen needle, diabetic 32 gauge x See Rx Instructions .ROUTE .MEDSUPPLY #50 ea 04/07/20 [Rx Confirmed 06/07/20] amlodipine 10 mg tablet 5 mg PO DAILY tablet 06/07/20 [History Confirmed 06/07/20] meloxicam 7.5 mg tablet 7.5 mg PO BID tablet 06/07/20 [History Confirmed 06/07/20] nystatin 100,000 unit/gram topical powder 1 applic TOPICAL BID #30 gm 06/07/20 [Rx Confirmed 06/07/20] Is last menstrual period known: No Post menopausal: Yes Patient : No PFSH Medical History Arthritis (Acute) Brain bleed (Acute) Breast lump (Acute) Diabetes type 2, controlled (Acute) History of kidney stones (Acute) Migraine (Acute) Seasonal allergic rhinitis (Acute) Hypertension (Chronic) Surgical History History of (Acute) Hx of hand surgery (Acute) Hx of knee surgery (Acute) Hx of tubal ligation (Acute) S/P breast biopsy, left (Acute) Family History Mother Breast cancer Arthritis Father Arthritis Diabetes Hypertension High cholesterol Brother Asthma Social History (Updated 06/07/20 @ 17:[address] Binu Michaud MD) Smoking Status: Never smoker second hand exposure: No alcohol intake: never substance use type: does not use seatbelt use: always HPI HPI HPI: KIRILL NI, is a 65 F who presents to the office today for surgical consultation regarding abnormal right mammogram and subsequent biopsy. The patient is referred by her primary care physician Dr. Carlos Vivas and a written copy my surgical consult recommendations will be returned to him 65-year-old female. G1, . Menarche at age 13. First child's 1 when she was 32. She did not breast-feed. She reminds me that remotely I did a stereotactic core right breast biopsy and then maybe 2 years ago a ultrasound-guided needle core left breast biopsy. She is diabetic. She states that she was instructed that a item was being followed in the right breast for 2 to 3 years. I have evidence of a [facility] diagnostic right mammogram May 04, 2020 suggesting a 2 cm asymmetry in the right breast suspicious for malignancy. 7 o'clock position middle depth. Architectural distortion associated with asymmetry. An ultrasound was performed to that area failing to demonstrate a density. The patient underwent a stereotactic needle core biopsy of this area May 25, 2020 with the following pathology May 25, 2020 [facility] stereotactic needle core right breast biopsy 6 o'clock position Pathology radial sclerosing lesion with focal atypical ductal hyperplasia, florid ductal hyperplasia. HPI HPI HPI: KIRILL NI, is a 65 F who presents to the office today for ROS General General: Yes weight change; no appetite, fatigue, colon cancer, breast cancer or weakness HEENT HEENT: No difficulty swallowing, eye injury, eye surgery, swollen glands or hoarseness Endo Endocrine: Yes diabetes mellitus; no thyroid disease, thyroid cancer, Hair loss, heat intolerance or cold intolerance Musc Musculoskeletal: Yes arthritis; no back problems, rheumatoid arthritis, gout or joint pain Cardio Cardiovascular: Yes high blood pressure; no murmur, pacemaker, heart disease, atrial fibrillation, heart attack, heart stent, palpitations, shortness of breat with exertion or chest pain Psych Psychiatric: No depression, anxiety or hearing voices Resp Respiratory: No shortness of breath, No sleep apnea, Yes cough, No COPD, No asthma, No emphysema, No wheezing Gastro Gastrointestinal: No abdominal pain, No nausea or vomiting, No diarrhea, No constipation, No blood in stool, No acid reflux, Yes hemorrhoids, No ulcers, No gallbladder problem, No black,tarry stools Lopez Hematologic: No blood thinners, No blood disorders, No bleeding, No anemia, No blood clots Neuro Neurologic: No weakness Exam Const General: cooperative, healthy appearing, comfortable, no acute distress Nutritional Appearance: overweight Orientation: alert, awake HENID Head: normal to inspection Eyes General: appearance normal, both eyes and all related structures Neck Neck: normal visual inspection Chest Other: Right breast: Evidence of a healing puncture site right breast 6 o'clock position. At the 7 o'clock position there is a slight palpable nodule with some dermal retraction. Nontender. I do not detect any nipple discharge. There is no axillary or clavicular adenopathy Left breast: No focal mass. No nipple discharge. No axillary or clavicular adenopathy Resp Effort & Inspection: normal respiratory effort Auscultation: clear to auscultation bilaterally Cardio Rate: regular rate Rhythm: regular rhythm Heart Sounds: no murmurs GI Palpation: soft, no hepatosplenomegaly Musc Cervical Spine: normal cervical lordosis Skin General: no rashes or lesions noted Neuro General: alert, awake Cognition: normal cognition Extrem Other: Bilateral lower extremity enlargement/nonpitting swelling Psych Affect: normal affect Assessment & Plan Problems 1. Radial scar of right breast N64.89 Plan Radial scar right breast 7 o'clock position. On clinical examination however there is some skin retraction. I have concerns that this may actually represent malignancy. The pathology demonstrated radial scar/atypical ductal hyperplasia. With the present I had an extensive discussion with the patient regarding treatment options. We discussed stereotactic wire localization right breast mass with wire localized lumpectomy. We discussed potential for right axillary blue dye and nuclear tracer sentinel lymph node biopsy. We discussed the fact that a delayed approach to the lymph nodes can be fraught with inability to detect the sentinel lymph nodes. We discussed the potential for a final pathology demonstrating a benign breast lesion albeit having performed the sentinel lymph node biopsy. My concern clinically is that there appears to be dermal retraction which otherwise would typically not occur with a benign process. The patient also states that she was instructed that this area was being followed by radiology for approximately 3 years. I recommended the patient that we initially tentatively scheduled for a stereotactic wire localization right breast with nuclear tracer and subsequent blue dye right axillary sentinel lymph node biopsy and wire localized right breast lumpectomy. In detail discussed the technique, benefit, risk, alternatives. In attempt to help decipher whether a sentinel lymph node biopsy would be beneficial I recommend that we obtain bilateral breast MRI. It is possible that the needle core biopsy has not provided a definitive answer regarding this at least 2 cm diameter lesion. I appreciate the opportunity of assisting with her surgical care. Copy: Dr. Carlos Michaud M.D., F.A.C.S. HPI HPI HPI: KIRILL NI, is a 65 F who presents to the office today for ROS General General: Yes weight change; no appetite, fatigue, colon cancer, breast cancer or weakness HEENT HEENT: No difficulty swallowing, eye injury, eye surgery, swollen glands or hoarseness Endo Endocrine: Yes diabetes mellitus; no thyroid disease, thyroid cancer, Hair loss, heat intolerance or cold intolerance Musc Musculoskeletal: Yes arthritis; no back problems, rheumatoid arthritis, gout or joint pain Cardio Cardiovascular: Yes high blood pressure; no murmur, pacemaker, heart disease, atrial fibrillation, heart attack, heart stent, palpitations, shortness of breat with exertion or chest pain Psych Psychiatric: No depression, anxiety or hearing voices Resp Respiratory: No shortness of breath, No sleep apnea, Yes cough, No COPD, No asthma, No emphysema, No wheezing Gastro Gastrointestinal: No abdominal pain, No nausea or vomiting, No diarrhea, No constipation, No blood in stool, No acid reflux, Yes hemorrhoids, No ulcers, No gallbladder problem, No black,tarry stools Lopez Hematologic: No blood thinners, No blood disorders, No bleeding, No anemia, No blood clots Neuro Neurologic: No weakness Exam Cardio Heart Sounds: no murmurs Office Procedures Fine Needle Aspiration Provider Documentation Details: Ultrasound-guided fine needle aspiration enlarged right axillary lymph node Timeout and informed consent was obtained. 65-year-old female was taken to the procedure room placed supine on the table. A right axillary roll was placed. Betadine prepping was performed. What was felt to represent the enlarged lymph node was identified. This seemed to compare favorably to the preoperative images. Under ultrasound guidance 1% lidocaine mixed 50-50 with 0.5% Marcaine was instilled as a local anesthetic. A total of 4 cc was used. Then a 25-gauge needle was advanced under ultrasound guidance into the lesion. A rapid rnrd-bry-zbdcl motion was performed. Specimen was obtained and smeared out on slides and treated with fixative. 2 passes were performed with a 25-gauge needle and then an additional 2 passes were performed with a 23-gauge needle. She tolerated the procedure well without apparent complication. She was given wound care and result instructions. She will be provided with cytology results prior to her definitive surgery plans next week. Binu Michaud M.D., F.A.C.S. Alert Utility Sales And Service Manager Alert Billing: Yes [id number] Thyroid Procedure Time Out Time Out Informed consent given: Yes Consent signed: Yes Time out checklist: patient, procedure, site marked/identified, positioning of patient, supplies available, allergies confirmed, team agrees on procedure Time out staff in room: Yes Time out verified: Yes Time out date: 06/24/20 Time out time: 09:50 Assessment & Plan Problems 1. Radial scar of right breast N64.89 2. Axillary adenopathy R59.0 Plan Enlarged lymph node right axilla. Fatty replacement suspicious for benign process. A seemingly successful ultrasound-guided fine-needle aspiration of this lymph node was performed today. She tolerated the procedure well. We did ask advice from Dr. Toshia Ramey from [facility] breast specialty center. She did feel that breast MRI was indicated but as noted above insurance declined. Without a definitive diagnosis of breast cancer she advised against right axillary sentinel lymph node biopsy. We are now awaiting the ultrasound fine-needle aspiration results from the solitary enlarged lymph node of the right axilla. If this cytology is negative for malignancy then I propose for the patient a stereotactic wire localization right breast lumpectomy. She is aware of the technique, benefit, risk, alternatives. She is aware that final pathology may demonstrate a malignancy. If this eventually waits then we would need to return to perform the sentinel node biopsy. I did perform ultrasound of the right breast 7:00 area today and and able to demonstrate some defect at the 7:00 area which is likely postbiopsy change. She has had an opportunity to ask and have questions answered. We will proceed as noted. Copy: Dr. Carlos Michaud M.D., F.A.C.S. On ultrasound patient had a solitary enlarged lymph node of the right axilla. An ultrasound-guided fine-needle aspiration of this was performed. Cytology was negative for malignant cells. Armed with the information that the patient has radial scar lower outer right breast with no evidence of malignancy on the core biopsy of that and with the enlarged right axillary lymph node on fine-needle aspiration negative for malignancy we will proceed with a stereotactic wire localization lower outer right breast with subsequent wire localized excisional lumpectomy. She is aware of the technique, benefit, risk, alternatives. We will not be proceeding with nuclear tracer blue dye sentinel lymph node biopsy at this time. She is aware that repeat surgery may be required pending the final pathology. Binu Michaud M.D., F.A.C.S. Procedure Criteria Procedure Type: Elective COVID Risk Discussion: The surgeon/proceduralist and patient have discussed in detail the risk of exposure to and/or potential harm posed by the COVID-19 virus with having a surgery/procedure at this time versus the risk of delaying the surgery/procedure. It is not possible to know either the risk of delaying the surgery or procedure or chance of getting an infection with perfect accuracy, but a joint decision was made between the patient and the surgeon/proceduralist to proceed at this time with the scheduled surgery/procedure as indicated on the consent form.
--- NOTE | 2020-06-29 10:29 | PCM.OPRPT ---
Problem List (1) Radial scar of right breast Status: Acute Report of Operation Date of Procedure: 06/29/20 Pre-Operative Diagnosis: Radial scar lower outer right breast Post-Operative Diagnosis: Same Surgery/Procedure Performed:: Stereotactic wire localization lower outer right breast. Wire localized excisional biopsy/lumpectomy lower outer right breast Description of Surgical Findings:: Timeout and informed consent was obtained. 65-year-old female was taken to the stereotactic unit placed prone on the table. The right breast was placed in a lateral medial view. The previous marking clip from the previous stereotactic biopsy performed at an outside hospital was identified. Stereotactic images were obtained. Digital information was obtained on a single target site. The breast was prepped with Betadine. 1% lidocaine was used as local anesthetic. A 20-gauge Kopan's needle was advanced to depth. Wire was displaced. Repeat images were obtained demonstrating adequate localization. Sterile dressings were applied. The patient tolerated the procedure well. She was subsequently taken to the operating for definitive surgery. Repeat timeout performed. The patient was taken to the operating place upon the table underwent general anesthesia. The right arm was placed at right angles of the table carefully supported with an arm singleton and soft roll. The right breast was sterilely prepped and draped. A radial incision was made approximately 7 o'clock position right breast. Electrocautery dissection was performed to try to completely excise the area localized by the wire. There was an area of slight firmness suspected be likely the previous biopsy site and it was completely circularly excised. Visual inspection and palpation of the residual tissue did not reveal any residual concerning findings. The wire exited laterally a short suture was placed superiorly a long suture anteriorly. 4 hemoclips were placed at the margins of the resection. Hemostasis was intact. The wound was anesthetized with 30 cc of 0.5% Marcaine. Subcutaneous subdermal edges approximate interrupted 3-0 Vicryl. Skin edges approximated running subicular 4 Monocryl. Steri-Strips Telfa OpSite bulky dry dressings applied. Sponge and instrument and needle counts were reported to the surgeon to be correct. Specimen mammogram was obtained. The marking clip and wire were noted to be excised. The specimen was grossly analyzed by pathology. No mass lesion was identified at that time. The marking clip appeared to be well centered within the specimen. Specimen lower outer right breast lesion. Drains none. Blood loss minimal. Binu Michaud M.D., F.A.C.S. Type of Anesthesia:: General Anesthesiologist: Jose Choe
--- NOTE | 2020-06-29 10:30 | BI_ITS ---
SURGICAL BREAST SPECIMEN RADIOGRAPH CLINICAL: Document presence of tissue clip marker in biopsy specimen. FINDINGS: Specimen shows presence of tissue clip marker. Electronically Signed: Juanito Willoughby MD at 12:37 EDT , Service support , BI/Breast Biopsy Specimen
--- NOTE | 2020-06-29 10:31 | PCM.DC.BS ---
Discharge Diet: No Restrictions Discharge Activity: May Not Drive - for 2-3 days or while taking narcotic pain meds. May shower in (days): 1 Lifting Restrictions: 10 pounds for 1 week. Call your doctor if your incision/area has: Continuous Slow Oozing, Sudden Increased Bleeding Call your doctor if you observe: Fever of 101 or Higher Suture Line Care: Avoid Pulling/Pushing, Avoid Pinching/Bending Remove Dressing in (days):: 1 - Remove bulky dressing tomorrow. May leave any opsite dressing for 3-4 days. Keep dressing in place until your follow-up appointment. Additional Dressing/Incision Instructions:: Remove bulky dressing tomorrow. May leave any opsite dressing for 3-4 days. Keep dressing in place until your follow-up appointment. Allergies/Adverse Reactions: Allergies meperidine [From Demerol] Allergy (Verified 06/29/20 08:03) Unknown Medications to take at Discharge atenolol 50 mg tablet 50 mg PO QDAY 02/09/17 paroxetine HCl 10 mg tablet 10 mg PO QDAY 02/09/17 atorvastatin 10 mg tablet 10 mg PO DAILY #30 tablet 12/31/19 flash glucose sensor See Rx Instructions .ROUTE .MEDSUPPLY #2 each 04/07/20 glimepiride 4 mg tablet 4 mg PO BID #180 tablet 04/07/20 pen needle, diabetic 32 gauge x 5/32 See Rx Instructions .ROUTE .MEDSUPPLY #50 each 04/07/20 amlodipine 10 mg tablet 5 mg PO DAILY tablet 06/07/20 meloxicam 7.5 mg tablet 7.5 mg PO BID PRN tablet 06/07/20 nystatin 100,000 unit/gram topical powder 1 applic TOPICAL BID #30 gm 06/07/20 Insulin Glargine,Hum.rec.anlog [Lantus Solostar U-100 Insulin] 26 unit SC DAILY 06/22/20 Orders to be completed after discharge: 12 Lead EKG [[facility]] Location: None Selected Primary Care Physician: Carlos Vivas MD [Primary Care Provider] - Please Follow Up With: Binu Michaud MD When: Office followup 1 week please. [phone]
[2020-06-29] MEDS: Cefazolin 2 GM in 0.9% Normal Saline 100 ML IV (10:42)
[2020-06-29 11:01] LABS: Bedside Glucose 164 mg/dL (70-110)
[2020-06-29] MEDS: Bupivacaine Mpf 0.5% 30 ML VIAL (11:29)
[2020-06-29 12:20] LABS: Bedside Glucose 105 mg/dL (70-110)
== END 2020-06-29 13:24 | disposition home or self-care (01) ==
LOC: SDC 07:45 → AC 07:46
PROVIDERS: PCP Family Medicine; Referring Provider Surgery; Visit Provider Surgery
PROC: (CPT 19301; principal; 2020-06-29 11:15)
DX: D24.1 Benign neoplasm of right breast (principal); L90.5 Scar conditions and fibrosis of skin; N62 Hypertrophy of breast; E11.9 Type 2 diabetes mellitus without complications; M19.90 Unspecified osteoarthritis, unspecified site; N64.89 Other specified disorders of breast; I10 Essential (primary) hypertension; R59.0 Localized enlarged lymph nodes; Z79.899 Other long term (current) drug therapy; Z79.4 Long term (current) use of insulin
CPT/HCPCS: 00400; 19283; 19301; 19281; 36415; 76098; 80048; 82962; 85027; 88305; 88307; 93005; J7120; J2405; Q9968

== ENCOUNTER → 2020-07-20 | Outpatient (CLI) | payer BC, SELFPAY ==
--- NOTE | 2020-07-20 14:25 | CYST_PTH ---
PATIENT: KIRILL NI LOC: [facility] U#:[id number] AGE/SX: 65/F ROOM: RE07/20/[address]: Dr. Binu Michaud MD : 1955 BED: DIS: 07/20/2020 SPEC #: [id number] RECD: 07/20/20 15:54 STATUS: ZEUS RETrang #: [id number] RONNELL: 07/20/20 14:[address]: Binu Michaud DEPT: SURGICAL PATHOLOGY RECD BY: Mely Gomez ENTERED: 07/21/20 10:21 SP TYPE: Cyst OTHR DR: Dr. Carlos Vivas MD Tissues: CYST Procedures: Surgery Specimen Level III HEADER OPERATION: Excision left lower back cyst PRE-OP DIAGNOSIS: Left lower back cyst TISSUE SUBMITTED: Left lower back tissue MICROSCOPIC DIAGNOSIS Left lower back cyst, excision: Ruptured epidermal inclusion cyst with chronic inflammation and foreign body giant cell reaction. SJ:[email or web address] 07/22/2020 MICROSCOPIC DESCRIPTION Slides are reviewed. GROSS DESCRIPTION Received in fixative is one container labeled with the patient's name and designated left lower back. The specimen consists of a piece of skin with underlying tissue. The skin piece measures 3 x 0.8 cm. The underlying cyst consists of a ruptured cyst with surrounding adipose tissue measuring 3.5 x 2.5 x 1 cm. Also present in the container are multiple pieces of adipose tissue mixed with turner-white cheesy material and tissue consistent with cyst contents measuring in aggregate 3 x 3 x 0.5 cm. Relief Mate sections are submitted in two cassettes. / ZITA:rogelio 07/21/20 TC:5 [facility]: [id number]
[2020-07-20 16:12] VITALS: BMI 42.9
== END | disposition home or self-care (01) ==
LOC: LABSPEC 16:16
PROVIDERS: PCP Family Medicine; Referring Provider Surgery; Visit Provider Surgery
DX: L72.0 Epidermal cyst (principal)
CPT/HCPCS: 88304

== ENCOUNTER → 2020-08-18 15:50 | Outpatient (CLI) | payer BC, SELFPAY ==
[2020-08-18 15:26] VITALS: BMI 42.9
[2020-08-18 17:06] LABS: Cholesterol 180 mg/dL (200); High Density Lipoprotein 60 mg/dL; Triglycerides 152 mg/dL; Very Low Density Lipoprotein 30 mg/dL (5-40)
== END ==
PROVIDERS: PCP Family Medicine; Referring Provider Nurse Practitioner Family; Visit Provider Nurse Practitioner Family
DX: E78.2 Mixed hyperlipidemia (principal)
CPT/HCPCS: 36415; 80061

== ENCOUNTER → 2020-12-12 14:15 | Outpatient (CLI) | payer BC, SELFPAY ==
--- NOTE | 2020-12-12 14:52 | BI_ITS ---
MAMMOGRAPHY - UNILATERAL DIAGNOSTIC: RIGHT BREAST REASON FOR EXAM: Female, 65 years old. 6 MO F/U POST BX PERTINENT HISTORY: Non-contributory. TECHNIQUE: Digital examination. Mediolateral oblique (MLO) and craniocaudad (CC) views of the breast were obtained. CAD: CAD was performed on this study. COMPARISON: 02/25/2020 FINDINGS: Breast Composition: There are scattered areas of fibroglandular density. There are no dominant masses or suspicious calcifications. Lumpectomy changes in the lower outer quadrant of the right breast. BI/DIAG MAMM W/CAD, UNILAT IMPRESSION: Interval lumpectomy in the lower outer quadrant of the right breast. ASSESSMENT CATEGORY: BIRADS Category 2: Benign. A letter regarding these results will be sent to the patient by the facility within 30 days. FOLLOW-UP RECOMMENDATION: Yearly follow-up mammogram recommended. (A) Approximately 10% of breast cancers are not detected by mammography. A normal mammogram should not delay biopsy of a clinically suspicious abnormality. Electronically Signed: Adrian Wood MD at 15:39 EDT Tel , Service support ,
== END ==
PROVIDERS: PCP Family Medicine; Visit Provider Surgery
DX: R92.8 Other abnormal and inconclusive findings on diagnostic imaging of breast (principal)
CPT/HCPCS: 77061; 77065; G0279

== ENCOUNTER → 2021-02-22 07:50 | Outpatient (CLI) | payer BC, SELFPAY ==
--- NOTE | 2021-02-22 07:53 | BI_ITS ---
MAMMOGRAPHY - BILATERAL SCREENING REASON FOR EXAM: Female, 65 years old. Routine annual screening examination. PERTINENT HISTORY: Mother with breast cancer. Prior right excisional breast biopsy for radial scar. Left excisional breast biopsy for lipoma. TECHNIQUE: Digital bilateral breast edgard (3D mammographic acquisition) in the CC and MLO projections. 2-D mediolateral oblique (MLO) and craniocaudad (CC) views of both breasts were obtained. CAD: Full Field Digital Mammography with Computer Added Detection was performed. COMPARISON: Comparison is made with prior study dated 06/29/2018 and 12/12/2020.. FINDINGS: Breast Composition: There are scattered areas of fibroglandular density. There are no dominant masses or suspicious calcifications. The patient is status post excisional breast biopsy in the deep inferior central aspect of the right breast. This is unchanged. No other significant abnormalities are identified. There has been no significant change since the prior study. BI/SCRN MAMM (CAD)W/EDGARD BILAT IMPRESSION: Stable bilateral screening mammogram. Yearly follow-up mammogram recommended. (A) ASSESSMENT CATEGORY: BIRADS Category 2: Benign. A letter regarding these results will be sent to the patient by the facility within 30 days. Approximately 10% of breast cancers are not detected by mammography. A normal mammogram should not delay biopsy of a clinically suspicious abnormality. [id number] Electronically Signed: Juanito Willoughby MD at 9:02 EST , Service support ,
== END ==
PROVIDERS: PCP Family Medicine; Visit Provider Family Medicine
DX: Z12.31 Encounter for screening mammogram for malignant neoplasm of breast (principal)
CPT/HCPCS: 77063; 77067

== ENCOUNTER → 2021-11-06 | Outpatient (CLI) | payer BC, SELFPAY ==
[2021-11-06 12:41] LABS: Basophil# 0.03 X10^3/uL; Basophil% 0.4 % (0-1); Eosinophil# 0.15 X10^3/uL; Eosinophils% 1.8 % (0-5); Hematocrit 45.5 % (37-47); Hemoglobin 14.5 g/dL (12.0-15.0); Lymphocyte % 30.7 % (19-41); Mean Corp Hgb Conc 31.9 g/dL (32-36); Mean Corpuscular Hgb 30.7 pg (27.0-32.0); Mean Corpuscular Volume 96.4 fL (81-99); Mean Platelet Vol. 11.8 fl (6.2-12.0); Monocyte# 0.69 X10^3/uL; Monocyte% 8.1 % (0-10); NRBC Flagged by Analyzer 0 % (0-5); Neutrophil # 4.98 X10^3/uL (2.7-7.7); Neutrophil % 58.8 % (47-70); Platelet Count 264 K/mm3 (150-450); RBC Distribution Width SD 46.6 fl (35.1-43.9); Red Blood Count 4.72 M/mm3 (4.2-5.4); White Blood Count 8.5 K/mm3 (4.4-11.0)
[2021-11-06 12:47] LABS: ALB/GLOB Ratio 0.9 RATIO (0.9-2.4); AST(SGOT) 14 U/L (15-37); Alanine Aminotransfer ALT/SGPT 23 U/L (13-56); Albumin, Serum 3.6 g/dL (3.2-5.0); Alkaline Phosphatase 72 U/L (45-117); Anion Gap 5 (5-15); BUN 18 mg/dL (7-18); BUN/Creat Ratio 21.3 RATIO (10-20); Calcium,Total 9.3 mg/dL (8.5-10.1); Chloride 104 mmol/L (98-107); Cholesterol 174 mg/dL (200); Creatinine, Serum 0.85 mg/dL (0.55-1.02); EST Glomerular Filtration Rate 72 mL/min (>60); Est Glom Filt Rate - Afr Amer 87 mL/min (>60); Globulin 3.8 g/dL (2.2-4.2); Glucose 223 mg/dL (74-106); High Density Lipoprotein 56 mg/dL; Potassium 4.4 mmol/L (3.5-5.1); Protein, Total 7.4 g/dL (6.4-8.2); Sodium Level 138 mmol/L (136-145); Triglycerides 159 mg/dL; Very Low Density Lipoprotein 32 mg/dL (5-40)
== END | disposition home or self-care (01) ==
LOC: BIMLAB 09:54
PROVIDERS: PCP Internal Medicine; Referring Provider Internal Medicine; Visit Provider Internal Medicine
DX: I10 Essential (primary) hypertension (principal)
CPT/HCPCS: 36415; 80053; 80061; 85025

== ENCOUNTER 2021-12-26 16:30 | Outpatient (RCR) | payer BC, SELFPAY ==
--- NOTE | 2021-11-22 16:55 | HP.PTEVAL_ITS ---
Patient's Visit Information KIRILL NI is a 66 year old F referred to Physical Therapy by Dr. Maricarmen Tavares MD with a diagnosis of Meralgia paraestheitca left side. Date of Evaluation: 11/22/21 Physical Therapist: Breezy Pham, FROILANT, OCS, CSCS - Visit Plan Frequency: 2-3x /Week Duration: 4-6 Weeks Plan: 2-3x/week for 4 weeks for. 1. Ensure HS and quad stretch going well at home. 2. core strength on mat to HEP. 3. gym based general ex and core strength to I. - Subjective My doctor retired(Isialicekiko). 3 weeks ago got unusual and sudden pain in back that she could not tolerate. Thought she had a kidney stone. She looked up s ome stretches for sciatic and it still nagged her. called Dr. Gomez (a new doctor to her) Put on prednisone immediately . Helped LBP but r thigh numbness persists. Back still tweaks here and there. Had 5 days of prednisone and never wants to do it again. Back tweaks transiently at 5/10 without reason recently but LBp was bad when this started. Numbness in L quad has been there and does not change, just feels like a weird sleeve feeling. Sleep is OK now with tylenol whcih she needed at times prior to this incident, has bone on bone in knees and may need TKA. 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 She can do this and did not take any time off. Basic ADLs are getting done and has done them throughout. Hobbies: knit and reading and they have continued. Exercise: no. Overall is 90% better than doctor visit. No problems with incontinence or sneeze/cough. - Pain LBP Pain Intensity (Out of 10): 0 Pain Intensity Range: 0, 5 Comment: LBP - Objective Walks slowly with stiff knees and trendelenberg but I to PT. Trasnfers I and cautiously. Steps are reciprocal but limited ROM in knees causes problem. Knees stiff B. Tender L LB L side gently. LB AROM extension min limited, flexion min limited, SB full. No increased pain just very stiff. HS and quads max tight barely to 50 degree 90/90 test and at prone 90 degree at knee. reflexes 1/3 patella and achilles. Sensation LE WNL to gross light touch. Strength LE 4-/5 without myotomal abnormalities. core strength 3+/5 - Balance/Special Test Scores Lower Extremity Functional Score: 58 - Goals Goal 1:: Patient 100% back to normal Goal Time Frame: 4-6 Weeks Goal 2:: I approp gym ex for strength adn conditioning to manage condition Goal Time Frame: 4-6 Weeks Goal 3:: LEFS improved to 55 Goal Time Frame: 4-6 Weeks Goal 4:: neuralgia in leg abolished. Goal Time Frame: 4-6 Weeks - Rehabilitation Potential Physical Therapy Diagnosis: scaitica improving. Rehabilitation Potential: Fair - Anticipated Interventions Patient/Client Instruction: Educate patient on: Condition, Plan of Care For the Purpose of:: To decrease pain, To decrease swelling/inflammation, To improve muscle performance and motor function Therapeutic Exercise to Include: Strength training, Flexibilty training, Gait and locomotor training, Passive ROM, Active ROM For the Purpose of:: To decrease pain, To increase ROM, To improve muscle performance and motor function, To increase tolerance to activity/condition/position, To improve ability of physical actions for home/community/work/leisure Manual Therapy Techniques to Include: Soft tissue mobilization For the Purpose of:: To increase ROM Thank you for the opportunity to evaluate your patient. For Medicare and Medicare HMO plans, please review the plan of care and approve it. It will need to be FAXED BACK to us at [phone] for Medicare purposes. For Medicare only, by signing this I certify the plan of care. Please let me know if there are questions or concerns regarding this plan of care. Physician Signature: Date:
--- NOTE | 2021-12-26 17:14 | HP.PTDCSUM ---
It has been my pleasure to treat KIRILL NI referred by Dr. Maricarmen Tavares MD, with the diagnosis of Meralgia paraestheitca left side for a total of 11 visit(s). Discharge Date: 12/26/21 Please see the following information for a summary of their discharge status. Subjective: Will see doctor for knees on Saturday as it limits her. Pain in back is gone adn most of leg is back to normal. Wonky on uipper left leg intermittently. Knee pain 2/10 on good day and 9/10 both knees. Life is normal except for knee pain. Will continue in gym I. Stretching at home. LBP Pain Intensity (Out of 10): 0 Knee pain Pain Intensity (Out of 10): 2 % Improvement: 90 Objective/Function: Walks with B knee pain avoiding knee extension with gait., steps reciprocally but poor flexion and needs B UE pulling. ROM L/S is good and no limitations due to meralgia pain or limitations. Goal 1:: Patient 100% back to normal Goal Progress: 90% Goal 2:: I approp gym ex for strength adn conditioning to manage condition Goal Progress: Goal Met Goal 3:: LEFS improved to 55 Goal Progress: Goal Met Goal 4:: neuralgia in leg abolished. Goal Progress: Progressing Plan: d/c If there are questions or concerns regarding this patient's physical therapy, please feel free to call me at [phone]. Thank you for the referral of this patient. Sincerely, Breezy Pham, DPT, OCS, CSCS Balance/Gait/Functional tests - Balance/Special Test Scores Lower Extremity Functional Score: 62
== END 2021-12-26 19:00 | disposition home or self-care (01) ==
LOC: PT 16:30
PROVIDERS: PCP Internal Medicine; Referring Provider Internal Medicine; Visit Provider Internal Medicine
DX: G57.12 Meralgia paresthetica, left lower limb (principal)
CPT/HCPCS: 97110; 97162; 97164

== ENCOUNTER → 2022-02-13 | Outpatient (CLI) | payer BC, SELFPAY ==
--- NOTE | 2022-02-13 17:35 | CT_ITS ---
EXAM: CT RIGHT LOWER EXTREMITY WITHOUT INTRAVENOUS CONTRAST CLINICAL INDICATION: surgical planning right knee TECHNIQUE: Helically acquired images were obtained of the right right hip, knee, and ankle without intravenous contrast. 2-D reformats were performed by the technologist. This CT exam was performed using one or more of the following dose reduction techniques: automated exposure control, adjustment of the mA and/or kV according to patient size, and/or use of iterative reconstruction technique. This report was created using [employer] report MAG Interactive technology. RADIATION DOSE: CTDIvol = 20.01 mGy, DLP = 1250.67 mGy-cm. COMPARISON: None. FINDINGS: BONES/JOINTS: Marked tricompartmental degenerative changes with large marginal osteophytes. In the posterior aspect of the joint there is a synovial osteochondroma measuring about 1 cm. Normal right hip and right ankle. No acute fracture. No subluxation. Normal alignment. SOFT TISSUES: Unremarkable. No soft tissue swelling or gas. No radiopaque foreign body. CT/Extremity Lower without Contra IMPRESSION: 1. Marked tricompartment degenerative changes of the right knee with large marginal osteophytes and at least one sinoatrial osteochondroma. 2. Normal right hip and right ankle. Electronically Signed: Kevin Robertson MD at 4:36 EST ,
== END | disposition home or self-care (01) ==
PROVIDERS: PCP Internal Medicine; Visit Provider Orthopaedic Surgery
DX: M17.11 Unilateral primary osteoarthritis, right knee (principal); M25.561 Pain in right knee
CPT/HCPCS: 73700

== ENCOUNTER 2022-02-26 10:45 | Day surgery (SDC) | payer BC, SELFPAY ==
[2022-02-13 12:05] LABS: Absolute Lymphocyte Count 2.27 X10^3/uL (0.83-4.51); Absolute Neutrophil Count 4.7 X10^3/uL (2.0-7.7); Basophil# 0.02 X10^3/uL; Basophil% 0.3 % (0-1); Eosinophils% 1.3 % (0-5); Hematocrit 44.9 % (37-47); Lymphocyte # 2.27 X10^3/ul (0.83-4.51); Lymphocyte % 29.8 % (19-41); Mean Corp Hgb Conc 31.2 g/dL (32-36); Mean Corpuscular Hgb 30.5 pg (27.0-32.0); Mean Corpuscular Volume 97.8 fL (81-99); Mean Platelet Vol. 11.5 fl (6.2-12.0); Monocyte# 0.48 X10^3/uL; Monocyte% 6.3 % (0-10); NRBC Flagged by Analyzer 0 % (0-5); Neutrophil # 4.71 X10^3/uL (2.7-7.7); Neutrophil % 61.9 % (47-70); Platelet Count 283 K/mm3 (150-450); RBC Distribution Width CV 13.2 % (11.6-14.6); RBC Distribution Width SD 46.6 fl (35.1-43.9); Red Blood Count 4.59 M/mm3 (4.2-5.4); White Blood Count 7.6 K/mm3 (4.4-11.0)
[2022-02-13 12:22] LABS: ALB/GLOB Ratio 0.8 RATIO (0.9-2.4); AST(SGOT) 11 U/L (15-37); Alanine Aminotransfer ALT/SGPT 23 U/L (13-56); Albumin, Serum 3.3 g/dL (3.2-5.0); Alkaline Phosphatase 68 U/L (45-117); Anion Gap 4 (5-15); BUN 15 mg/dL (7-18); BUN/Creat Ratio 19.2 RATIO (10-20); Calcium,Total 9.3 mg/dL (8.5-10.1); Chloride 106 mmol/L (98-107); Creatinine, Serum 0.78 mg/dL (0.55-1.02); EST Glomerular Filtration Rate 79 mL/min (>60); Est Glom Filt Rate - Afr Amer 95 mL/min (>60); Globulin 3.9 g/dL (2.2-4.2); Glucose 137 mg/dL (74-106); Potassium 4.3 mmol/L (3.5-5.1); Protein, Total 7.2 g/dL (6.4-8.2); Sodium Level 141 mmol/L (136-145)
--- NOTE | 2022-02-19 12:24 | EKG12_ITS ---
Test Reason : PRE OP Blood Pressure : / mmHG Vent. Rate : 072 BPM Atrial Rate : 072 BPM P-R Int : 170 ms QRS Dur : 080 ms QT Int : 412 ms P-R-T Axes : 059 008 046 degrees QTc Int : 451 ms Normal sinus rhythm Normal ECG Confirmed by KELLY ESTES, DIMA ([id number]), photograph editor DOMITILA SUAREZ ([id number]) on 02/20/2022 11:26:02 AM Referred By: ELSA Confirmed By:DIMA MENDOZA MD
[2022-02-19 13:32] LABS: Magnesium 2.2 mg/dL (1.6-2.6)
[2022-02-19 14:17] LABS: Albumin, Serum 3.6 g/dL (3.2-5.0)
[2022-02-26] VITALS (10 sets, daily range): BP systolic 111–142; BP diastolic 58–81; PULSE 56–85; RESP 16–18; TEMP 36.1–36.5; O2SAT 94–100; BMI 44.0
[2022-02-26] MEDS: Lactated Ringers 1,000 ML 999 ML IV (11:50)
[2022-02-26] MEDS: Magnesium 1 GM over 15 mins IV (11:55)
[2022-02-26] MEDS: Acetaminophen 500 MG Tablet 1000 MG PO ×2 (12:13→18:00)
[2022-02-26] MEDS: Gabapentin 600 MG Tablet PO (12:13)
[2022-02-26 12:40] LABS: Bedside Glucose 288 mg/dL (74-106)
[2022-02-26] MEDS: Insulin Lispro 100 UNIT/ML INSULN.PEN SC (12:52)
[2022-02-26] MEDS: Cefazolin 2 GM in 0.9% Normal Saline 100 ML IV (13:20)
[2022-02-26] MEDS: TXA 1000mg in NS100 100ml (IVPB at Incision) 660 MG IV (13:30)
--- NOTE | 2022-02-26 13:45 | KNEE_PTH ---
PATIENT: KIRILL NI LOC: [facility] [place] U#:[id number] AGE/SX: 66/F ROOM: RE02/26/[address]: Dr. Kevin Gonzalez DO : 1955 BED: DIS: 02/26/2022 SPEC #: [id number] RECD: 02/27/22 07:14 STATUS: ZEUS RETrang #: [id number] RONNELL: 02/26/22 13:[address]: Kevin Gonzalez DEPT: SURGICAL PATHOLOGY RECD BY: Mely Gomez ENTERED: 02/27/22 09:29 SP TYPE: TOTAL KNEE OTHR DR: Dr. Maricarmen Tavares MD Tissues: Knee, NOS Procedures: Decalcification bone/plaque Surgery Specimen Level IV HEADER OPERATION: ERAS, total knee replacement robotic arm assist PRE-OP DIAGNOSIS: Osteoarthritis right knee TISSUE SUBMITTED: Bone right knee MICROSCOPIC DIAGNOSIS Bone right knee, total knee replacement/resection: Pieces of bone with degenerative osteoarthritic changes. ZITA:[email or web address] 03/02/2022 MICROSCOPIC DESCRIPTION Slides are reviewed. GROSS DESCRIPTION Received is one container designated bone right knee. The specimen consists of multiple fragments of turner-yellow bone measuring in aggregate 10 x 8 x 3 cm. No soft tissue is identified. A number of bony fragments contain articular surfaces consistent with tibial plateau and femoral condyle and displaying prominent osteophyte formation, eburnation and bone erosion. Circus Supervisor sections are submitted in one cassette after decalcification. / ZITA:rogelio 02/27/2022 TC:5 CPT: 03766, 50976
[2022-02-26] MEDS: TXA 1000mg in NS100 100ml (IVPB at Closure) 660 MG IV (14:45)
--- NOTE | 2022-02-26 14:53 | OP.PCM_ITS ---
Report of Operation Date of Procedure: 02/26/22 Pre-Operative Diagnosis: OA right knee Post-Operative Diagnosis: OA right knee Surgery/Procedure Performed:: Right TKR Description of Surgical Findings:: Report of Operation Date of Procedure: 02/26/2022 Preoperative Diagnosis: [right ] knee primary osteoarthritis Postoperative Diagnosis: [right ] knee primary osteoarthritis Operation: Robotic Assisted Knee Total Arthroplasty, [right ] knee Surgeon: Dr Kevin Gonzalez DO Asphalt Engineer: Bijan Leyva PA-C Anesthesia: spinal Anesthesiologist: Ronal Holley M.D. Findings: Stable knee with good patella tracking Specimen(s): Bony cuts Complications: No intraoperative complications Estimated Blood Loss: 30 cc IV Fluids: 1000 cc crystalloid Implants Used: 1. [place] Triathlon press fit CR size 2 femur 2. [place] Triathlon size 3 tibia 3. 35 mm patella 4. 9 mm CS polyethylene Brief History Operative Indications: [ (66y\o female) ] with history of [ right ] knee osteoarthrosis with radiographic findings with loss of joint space, osteophyte formation and subchondral sclerosis. Failed conservative measures as mentioned in the H&P. Discussion of total knee arthroplasty as well as risk and benefits were discussed with the patient including but not limited to blood loss, DVTs, PEs, neurovascular damage, general risk of anesthesia including loss of life, and stiffness or instability were also discussed with the patient. Patient demonstrated understanding and was able to sign informed consent. Procedure: On the date of procedure, patient's [ right ] lower extremity was marked in the preoperative area. The patient was then taken back to the operating room where that patient was placed on the table in the supine position. All bony pro minences were identified and well-padded. Anesthesia assumed control of the C- spine and airway throughout the remainder of the procedure. A tourniquet was placed on the [right ] upper thigh and the leg was prepped in a sterile fashion. The surgeon then scrubbed at this time. Upon reentering the room, the [right ] lower extremity was draped in a standard orthopedic fashion. A timeout was then called and everyone agreed upon the side, the site, the procedure to be performed, patient's identity and antibiotics given. Esmarch bandage was used to exsanguinate the extremity and the tourniquet was placed up to 250 mmHg with the knee in flexion. A midline skin incision was made and a sharp dissection was taken down through skin, subcutaneous tissue and fat. The standard medial parapatellar incision was made and the patella was subluxed laterally. An appropriate deep MCL release was done and the fat pad was resected. Our attention was then directed to the patella. The patella was everted and a flat resection was made. The knee was then flexed up and 2 femoral pins were placed inside the incision and 2 tibial pins were placed outside the incision in the medial tibia bicortically. Once this was completed, the 2 checkpoints in the femur and tibia were placed. Knee was then flexed up and the bony landmarks were registered. Once the was completed, the knee taken through range of motion and manually stressed allowing us to plan for an appropriate tibial cut. The robotic arm was brought into the field sterilely and checkpoint and saw were registered. Based on the patient's deformity, the tibial cut was made in [ 2 degrees varus ]. At this time, the tensioner was then placed in the joint and ligament tension was checked at 90 degrees and full extension. Based on the patient's ligamentous tension, appropriate adjustments were made to the operative plan and ligament releases were done. Once we were happy with our operative plan with balanced flexion and extension gaps, our attention was directed to the femur. The robot was brought into the field sterilely and registered. Posterior condylar cuts, anterior chamfer cuts and anterior cuts were appropriately made for a [size 2 ] femur. When these were completed, the saws were switched out in the distal femoral and posterior chamfer cuts were made. Protecting the soft tissue throughout this time. A [size 3 ] base plate was selected. The knee was flexed to 90 degrees and soft tissues and posterior osteophytes were removed from the joint. 40 cc of the periarticular injection was injected into the posterior medial corner of the joint. The appropriate trials were then placed on the femur and tibia. A trial polyethylene was trialed to ensure proper balancing and stability of the knee. The appropriate tibial internal rotation was then marked with a bovie. Our attention was then directed to the patella. The lug holes were drilled and the patella trial was placed. Patellar tracking was checked and deemed ap propriate. Once we were happy, lug holes were drilled for the femur and trial components were removed. The tibia was subluxed and pinned into place and the keel was punched and drilled appropriately. Final components were verified and opened. The wound was copiously irrigated with normal saline. The components were impacted into place with the tibia, femur and finally the patella. The trial poly component was placed and the knee was placed in full extension. The tracking, alignment and balance were verified and a [ 9 mm CS ] polyethylene component was placed. Once the final components were placed an Irrisept lavage was performed and the wound was copiously irrigated with normal saline solution and the periarticular injection was given. the wound was closed in a layer-garvey fashion using #1 vicryl interrupted sutures for the arthrotomy, 2-0 interrupted vicryl suture for the subcuticular layer and columba for final skin closure. A sterile compressive dressing was then placed. The patient was then awakened from anesthesia, transferred to the [facility] and transferred to the PACU for recovery. My physician sourcing assistant was a vital part of this case. He was important in appropriate retraction during the case, and protection of soft tissues during bony cuts. His intimate knowledge of the case and my steps aided in safe and expedient completion of the procedure as well as appropriate position of the leg during the case. He was also vital in assisting with closure under my direct supervision. Due to the complexity of this case, robotic arm was used to assist in the surgery to improve accuracy and clinical outcomes. Post-op Plan: DVT ppx; ASA 81 mg BID, thigh high compression stockings Follow up: in office in 2 weeks for wound check PT: to start POD #0 at hospital, outpatient PT should be arranged. Preoperative antibiotic: Ancef 3 grams IV Kevin Gonzalez DO Surgeon: Kevin Gonzalez maintenance instructor: Bijan Leyva Type of Anesthesia: Spinal Anesthesiologist: Ronal Holley Estimated Blood Loss (mL): 30 cc Fluids Replaced: 1000 cc crystalloid Admit VTE Documentation VTE Present on Admission: No VTE Mechan Device Prophylaxis: SCD's VTE Pharm Prophylaxis ordered?: Yes
--- NOTE | 2022-02-26 15:50 | RAD_ITS ---
INDICATION: post op TKR -- in PACU EXAMINATION/TECHNIQUE: X-RAY - RIGHT XR Knee 1 or 2 Views 2 VIEWS COMPARISON: None. FINDINGS: Knee prosthesis has been placed in anatomic alignment and position. There is residual gas and fluid within the joint space. There are surgical columba in the soft tissues at the operative site. RAD/Knee 1 or 2 Views IMPRESSION: Status post knee prosthesis placement Electronically Signed: Brandt Hendrix MD at 16:11 EST ,
[2022-02-26] MEDS: Lactated Ringers 1,000 ML 125 ML IV (16:14)
[2022-02-26 16:35] LABS: Bedside Glucose 167 mg/dL (74-106)
[2022-02-26] MEDS: oxyCODONE 5 MG Tablet PO (16:53)
== END 2022-02-26 19:35 | disposition home or self-care (01) ==
LOC: SDC 10:45 → AC 10:46
PROVIDERS: Anesthesiology; Physician Assistant; PCP Internal Medicine; Referring Provider Orthopaedic Surgery; Visit Provider Orthopaedic Surgery
PROC: 0SRC0JZ Replacement of Right Knee Joint with Synthetic Substitute, Open Approach (ICD-10-PCS; CPT 27447; principal; 2022-02-26 13:15)
DX: M17.11 Unilateral primary osteoarthritis, right knee (principal); Z79.4 Long term (current) use of insulin; E11.9 Type 2 diabetes mellitus without complications; F32.A Depression, unspecified; F41.9 Anxiety disorder, unspecified; I10 Essential (primary) hypertension; E78.00 Pure hypercholesterolemia, unspecified; Z79.899 Other long term (current) drug therapy
CPT/HCPCS: 27447; 01402; 64450; 36415; 73560; 80053; 82040; 82962; 83735; 85025; 87081; 88305; 88311; 93005; 97162; C1776; J7120; J2405; J3475

== ENCOUNTER → 2022-04-23 | Outpatient (CLI) | payer BC, SELFPAY ==
--- NOTE | 2022-04-23 12:04 | BI_ITS ---
MAMMOGRAPHY - BILATERAL SCREENING REASON FOR EXAM: Female, 67 years old. Routine annual screening examination. PERTINENT HISTORY: Right excisional breast biopsy for radial scar. Mother with breast cancer. TECHNIQUE: Digital bilateral breast edgard (3D mammographic acquisition) in the CC and MLO projections. 2-D mediolateral oblique (MLO) and craniocaudad (CC) views of both breasts were obtained. CAD: Full Field Digital Mammography with Computer Added Detection was performed. COMPARISON: Comparison is made with prior study dated 02/22/2021 and 12/12/2020. FINDINGS: Breast Composition: There are scattered areas of fibroglandular density. There are no dominant masses or suspicious calcifications. Surgical clips are once again seen in the deep central lateral aspect of the right breast and compared with a prior excisional breast biopsy. Stable benign-appearing bilateral axillary lymph nodes. No other significant abnormalities are identified. There has been no significant change since the prior study. BI/SCRN MAMM (CAD)W/EDGARD BILAT IMPRESSION: Stable bilateral screening mammogram. Yearly follow-up mammogram recommended. (A) ASSESSMENT CATEGORY: BIRADS Category 2: Benign. A letter regarding these results will be sent to the patient by the facility within 30 days. Approximately 10% of breast cancers are not detected by mammography. A normal mammogram should not delay biopsy of a clinically suspicious abnormality. [id number] Electronically Signed: Juanito Willoughby MD at 13:16 EST ,
== END | disposition home or self-care (01) ==
LOC: OPBI 12:02
PROVIDERS: PCP Internal Medicine; Visit Provider Internal Medicine
DX: Z12.31 Encounter for screening mammogram for malignant neoplasm of breast (principal)
CPT/HCPCS: 77063; 77067

== ENCOUNTER → 2022-05-02 | Outpatient (CLI) | payer BC, SELFPAY ==
[2022-05-02 17:10] LABS: Absolute Lymphocyte Count 2.45 X10^3/uL (0.83-4.51); Absolute Neutrophil Count 5.1 X10^3/uL (2.0-7.7); Basophil# 0.04 X10^3/uL; Basophil% 0.5 % (0-1); Eosinophil# 0.24 X10^3/uL; Eosinophils% 2.8 % (0-5); Hematocrit 42.9 % (37-47); Hemoglobin 13.3 g/dL (12.0-15.0); Lymphocyte # 2.45 X10^3/ul (0.83-4.51); Lymphocyte % 28.6 % (19-41); Mean Corpuscular Hgb 30.2 pg (27.0-32.0); Mean Corpuscular Volume 97.3 fL (81-99); Mean Platelet Vol. 11.5 fl (6.2-12.0); Monocyte# 0.73 X10^3/uL; Monocyte% 8.5 % (0-10); NRBC Flagged by Analyzer 0 % (0-5); Neutrophil % 59.4 % (47-70); Platelet Count 293 K/mm3 (150-450); RBC Distribution Width CV 13.3 % (11.6-14.6); Red Blood Count 4.41 M/mm3 (4.2-5.4); White Blood Count 8.6 K/mm3 (4.4-11.0)
[2022-05-02 17:29] LABS: ALB/GLOB Ratio 0.9 RATIO (0.9-2.4); AST(SGOT) 9 U/L (15-37); Alanine Aminotransfer ALT/SGPT 15 U/L (13-56); Albumin, Serum 3.5 g/dL (3.2-5.0); Alkaline Phosphatase 79 U/L (45-117); Anion Gap 6 (5-15); BUN 19 mg/dL (7-18); BUN/Creat Ratio 20.1 RATIO (10-20); Calcium,Total 9.6 mg/dL (8.5-10.1); Chloride 103 mmol/L (98-107); Creatinine, Serum 0.94 mg/dL (0.55-1.02); EST Glomerular Filtration Rate 63 mL/min (>60); Est Glom Filt Rate - Afr Amer 76 mL/min (>60); Globulin 3.9 g/dL (2.2-4.2); Glucose 136 mg/dL (74-106); Potassium 4.3 mmol/L (3.5-5.1); Protein, Total 7.4 g/dL (6.4-8.2); Sodium Level 140 mmol/L (136-145)
== END | disposition home or self-care (01) ==
LOC: BIMLAB 15:37
PROVIDERS: PCP Internal Medicine; Referring Provider Internal Medicine; Visit Provider Internal Medicine
DX: Z01.818 Encounter for other preprocedural examination (principal); M17.9 Osteoarthritis of knee, unspecified
CPT/HCPCS: 36415; 80053; 85025

== ENCOUNTER → 2022-05-03 | Outpatient (CLI) | payer BC, SELFPAY ==
--- NOTE | 2022-05-03 16:31 | CT_ITS ---
STUDY: CT LEFT KNEE WITHOUT CONTRAST REASON FOR EXAM: Female, 67 years old. OSTEOARTHRITIS RADIATION DOSAGE (If Supplied By Facility): CTDIvol = ( 20.88 ) mGy, DLP = ( 1407.34 ) mGycm TECHNIQUE: Transaxial CT imaging of the knee was performed utilizing joint replacement protocol with localizing images at the hip and ankle. Coronal and sagittal images were reformatted. Individualized dose optimization techniques were used for this CT. COMPARISON: None. FINDINGS: There is moderate spurring of the medial femoral condyle and medial tibial plateau. There is severe narrowing of the articular joint space of the medial knee compartment. There is moderate spurring of the lateral femoral condyle and lateral tibial plateau. There is mild narrowing of the of the articular joint space of the lateral knee compartment. There is moderate joint space narrowing and spurring of the patellofemoral articulation. Normal proximal tibiofibular articulation. There is small joint effusion. There is 0.5 cm loose body in the anterior joint. The quadriceps tendon is grossly normal. The patellar tendon is grossly normal. Normal Hoffa''s fat pad. There is 1.[address]/Extremity Lower without Contra IMPRESSION: Tricompartmental degenerative change. Electronically Signed: Kendell Jhaveri MD at 10:10 EST ,
== END | disposition home or self-care (01) ==
PROVIDERS: PCP Internal Medicine; Referring Provider Orthopaedic Surgery; Visit Provider Orthopaedic Surgery
DX: M17.12 Unilateral primary osteoarthritis, left knee (principal)
CPT/HCPCS: 73700

== ENCOUNTER → 2022-05-21 | Outpatient (CLI) | payer BC, SELFPAY ==
--- NOTE | 2022-05-21 11:00 | KNEE_PTH ---
PATIENT: KIRILL NI LOC: [facility] U#:[id number] AGE/SX: 67/F ROOM: RE05/21/[address]: Dr. Kevin Gonzalez DO : 1955 BED: DIS: 05/21/2022 SPEC #: [id number] RECD: 05/22/22 15:01 STATUS: ZEUS RETrang #: [id number] RONNELL: 05/21/22 11:[address]: Kevin Gonzalez DEPT: SURGICAL PATHOLOGY RECD BY: Mely Gomez ENTERED: 05/22/22 08:55 SP TYPE: TOTAL KNEE OTHR DR: Dr. Maricarmen Tavares MD [facility] Tissues: Knee, NOS Procedures: Decalcification bone/plaque Surgery Specimen Level IV HEADER OPERATION: Left total knee arthroplasty, robotic PRE-OP DIAGNOSIS: Unilateral primary osteoarthritis left knee TISSUE SUBMITTED: Bone and soft tissue left knee MICROSCOPIC DIAGNOSIS Bone and tissue of left knee, total knee resection: Severe degenerative joint disease. AM:[email or web address] 05/25/2022 MICROSCOPIC DESCRIPTION Slides are reviewed. GROSS DESCRIPTION Received is one container designated left knee bone and soft tissue. The specimen consists of multiple fragments of turner-yellow bone measuring in aggregate 11.0 x 11.0 x 4.0 cm. Also in the specimen container are multiple fragments of yellow-white soft tissue measuring in aggregate 6.0 x 6.0 x 2.5 cm. A number of bony fragments contain articular surfaces consistent with tibial plateau and femoral condyle and displaying prominent osteophyte formation, eburnation and bone erosion. Assembler Mechanical Ordnance sections are submitted in two cassettes as follows: 1 - soft tissue, 2 - bone after decalcification. / SJ:rogelio 05/22/2022 TC:5 [facility]: [id number], [id number]
== END | disposition home or self-care (01) ==
LOC: LABSPEC 15:21
PROVIDERS: PCP Internal Medicine; Referring Provider Orthopaedic Surgery; Visit Provider Orthopaedic Surgery
DX: M17.12 Unilateral primary osteoarthritis, left knee (principal)
CPT/HCPCS: 88305; 88311

== ENCOUNTER → 2023-02-08 | Outpatient (CLI) | payer BC, SELFPAY ==
[2023-02-08 12:08] LABS: Absolute Lymphocyte Count 1.85 X10^3/uL (0.83-4.51); Basophil# 0.03 X10^3/uL; Basophil% 0.4 % (0-1); Eosinophil# 0.13 X10^3/uL; Eosinophils% 1.7 % (0-5); Hematocrit 42.7 % (37-47); Lymphocyte # 1.85 X10^3/ul (0.83-4.51); Lymphocyte % 24.4 % (19-41); Mean Corp Hgb Conc 30.4 g/dL (32-36); Mean Corpuscular Hgb 29.4 pg (27.0-32.0); Mean Corpuscular Volume 96.6 fL (81-99); Mean Platelet Vol. 11.3 fl (6.2-12.0); Monocyte# 0.52 X10^3/uL; Monocyte% 6.9 % (0-10); NRBC Flagged by Analyzer 0 % (0-5); Neutrophil # 4.95 X10^3/uL (2.7-7.7); Neutrophil % 65.4 % (47-70); Platelet Count 313 K/mm3 (150-450); RBC Distribution Width CV 13.9 % (11.6-14.6); RBC Distribution Width SD 49.9 fl (35.1-43.9); Red Blood Count 4.42 M/mm3 (4.2-5.4); White Blood Count 7.6 K/mm3 (4.4-11.0)
[2023-02-08 12:30] LABS: ALB/GLOB Ratio 0.8 RATIO (0.9-2.4); AST(SGOT) 8 U/L (15-37); Alanine Aminotransfer ALT/SGPT 16 U/L (13-56); Albumin, Serum 3.2 g/dL (3.2-5.0); Alkaline Phosphatase 74 U/L (45-117); Anion Gap 3 (5-15); BUN 15 mg/dL (7-18); Calcium,Total 8.8 mg/dL (8.5-10.1); Chloride 103 mmol/L (98-107); Cholesterol 163 mg/dL (200); Creatinine, Serum 0.88 mg/dL (0.55-1.02); EST Glomerular Filtration Rate 68 mL/min (>60); Est Glom Filt Rate - Afr Amer 82 mL/min (>60); Globulin 4.2 g/dL (2.2-4.2); Glucose 308 mg/dL (74-106); High Density Lipoprotein 58 mg/dL; Potassium 4.4 mmol/L (3.5-5.1); Protein, Total 7.4 g/dL (6.4-8.2); Sodium Level 137 mmol/L (136-145); Triglycerides 116 mg/dL; Very Low Density Lipoprotein 23 mg/dL (5-40)
== END | disposition home or self-care (01) ==
LOC: BIMLAB 08:56
PROVIDERS: PCP Internal Medicine; Visit Provider Internal Medicine
DX: E11.9 Type 2 diabetes mellitus without complications (principal); E78.2 Mixed hyperlipidemia
CPT/HCPCS: 36415; 80053; 80061; 85025

== ENCOUNTER → 2023-05-14 | Outpatient (CLI) | payer MEDICARE, SELFPAY ==
--- NOTE | 2023-05-14 16:57 | RAD_ITS ---
INDICATION: Cough COUGH X 3 MONTHS, HX RIGHT SIDED RADICAL SCAR REMOVAL, TITANIUM MARKER PLACED 25 YEARS AGO EXAMINATION/TECHNIQUE: X-RAY - XR Chest 2 Views COMPARISON: 05/01/2006 FINDINGS: LINES/DEVICES: None. LUNGS: No consolidation. No pneumothorax. MEDIASTINUM: Aorta is atherosclerotic. CARDIAC SILHOUETTE: Not enlarged. BONES AND SOFT TISSUES: No acute abnormalities. Degenerative changes of the dorsal spine. Metallic object on the lateral view may be overlying patient or in the soft tissues, not visualized on the PA view. RAD/Chest PA and Lateral IMPRESSION: No evidence of active intrathoracic disease. Given the stated symptoms for 3 months, consider further evaluation with CT chest. Electronically Signed: Kay Lopez MD at 8:08 EST ,
== END | disposition home or self-care (01) ==
LOC: RAD 16:55
PROVIDERS: PCP Internal Medicine; Referring Provider Internal Medicine; Visit Provider Internal Medicine
DX: R05.3 Chronic cough (principal)
CPT/HCPCS: 71046

== ENCOUNTER → 2023-05-22 | Outpatient (CLI) | payer MEDICARE, SELFPAY ==
--- NOTE | 2023-05-22 08:29 | BI_ITS ---
MAMMOGRAPHY - BILATERAL SCREENING REASON FOR EXAM: Female, 68 years old. Routine annual screening examination. PERTINENT HISTORY: Personal history of breast cancer. Mother with breast cancer. TECHNIQUE: Digital bilateral breast edgard (3D mammographic acquisition) in the CC and MLO projections. 2-D mediolateral oblique (MLO) and craniocaudad (CC) views of both breasts were obtained. CAD: Full Field Digital Mammography with Computer Added Detection was performed. COMPARISON: Comparison is made with prior study of April 23, 2022 and February 22, 2021. FINDINGS: Breast Composition: There are scattered areas of fibroglandular density. There are no dominant masses or suspicious calcifications. The patient is status post excisional biopsy in the deep central portion of the right breast. Fat-containing bilateral axillary lymph nodes. No other significant abnormalities are identified. There has been no significant change since the prior study. BI/SCRN MAMM (CAD)W/EDGARD BILAT IMPRESSION: Stable bilateral screening mammogram. Yearly follow-up mammogram recommended. (A) ASSESSMENT CATEGORY: BIRADS Category 2: Benign. A letter regarding these results will be sent to the patient by the facility within 30 days. Approximately 10% of breast cancers are not detected by mammography. A normal mammogram should not delay biopsy of a clinically suspicious abnormality. [id number] Electronically Signed: Juanito Willoughby MD at 13:44 EDT ,
--- OUTSIDE RECORDS SUMMARY | 2023-05-22 08:51 | XMS RPT_ITS | CCD ---
Author Name Unknown Address [address] [place] [address] Organization [facility] Care Team Providers Care Senior Structural Engineer Name Role Phone AMBER ESTES, PUSHPA Gonsalevs Primary Care Physician [phone] Allergies Allergy Classification Reported Allergen(s) Allergy Type Date of Onset Reaction(s) Facility (2 sources) Adhesive Tape Drug allergy [facility] (2 sources) Meperidine; Translations: [meperidine] Drug Allergy [facility] Medications Current Medications Medication Drug Class(es) Dates Sig (Normalized) Sig (Original) amLODIPine 5 mg oral tablet (2 sources) Dihydropyridine Calcium Channel Jose Start: 01-17-2021 amLODIPine 5 mg oral tablet Dose : 5 mg = 1 tab(s), Oral, qDay, # 90 tab(s), 3 Refill(s), Pharmacy: [facility], 157, cm, 01/27/20 7:58:00 EST, Height, kg, 01/27/20 7:58:00 EST, Dosing Weight Start Date: 01/17/21 Status: Ordered atenolol 50 mg oral tablet (2 sources) beta-Adrenergic Jose Start: 01-17-2021 atenolol 50 mg oral tablet Dose : 50 mg = 1 tab(s), Oral, qDay, # 90 tab(s), 3 Refill(s), Pharmacy: [facility], 157, cm, 01/27/20 7:58:00 EST, Height, kg, 01/27/20 7:58:00 EST, Dosing Weight Start Date: 01/17/21 Status: Ordered azithromycin 250 mg oral tablet (2 sources) Macrolide Antimicrobial Start: 02-01-2021 End: 02-06-2021 Zithromax 250 mg oral tablet Dose : 250 mg = 1 tab(s), Oral, qDay, follow directions on Z-Errol, X 5 day(s), # 6 tab(s), 0 Refill(s), 02/06/21 9:34:00 EST, Pharmacy: [facility], 157, cm, 02/01/21 7:52:00 EST, Height, 109.2, kg, 02/01/21 7:52:00 EST, Dosing Weight Start Date: 02/01/21 Stop Date: 02/06/21 Status: Ordered Betamethasone / Clotrimazole (2 sources) Azole Antifungal, Corticosteroid Start: 02-01-2021 Lotrisone 1%-0.05% topical cream Apply 1 deshawn, Topical, BID, # 15 gram(s), 1 Refill(s), Pharmacy: [facility], Cream, 157, cm, 02/01/21 7:52:00 EST, Height, 109.2, kg, 02/01/21 7:52:00 EST, Dosing Weight Start Date: 02/01/21 Status: Ordered glimepiride 1 mg oral tablet (2 sources) Sulfonylurea Start: 10-21-2018 glimepiride 1 mg oral tablet Dose : 2 mg = 2 tab(s), Oral, BID, # 120 tab(s), 11 Refill(s) Start Date: 10/21/18 Status: Ordered meloxicam 7.5 mg oral tablet (2 sources) Nonsteroidal Anti-inflammatory Drug Start: 01-29-2020 meloxicam 7.5 mg oral tablet Dose : 7.5 mg = 1 tab(s), Oral, BID, Take with food/milk, # 180 tab(s), 3 Refill(s), Pharmacy: [facility], 157, cm, 01/27/20 7:58:00 EST, Height, kg, 01/27/20 7:58:00 EST, Dosing Weight Start Date: 01/29/20 Status: Ordered Misc Medication (2 sources) Start: [place] [facility] [place] blood sugar support 1 daily, 0 Refill(s) Start Date: 01/14/19 Status: Ordered [place]-3 1050 mg oral capsule (2 sources) Start: 01-14-2019 [place]-3 1050 mg oral capsule Dose : 1,050 mg = 1 cap(s), Oral, qDay, # 90 cap(s), 0 Refill(s) Start Date: 01/14/19 Status: Ordered PARoxetine hydrochloride 10 mg oral tablet (2 sources) Serotonin Reuptake Inhibitor Start: 01-17-2021 take 1 tablet by mouth once daily Paxil 10 mg oral tablet Dose : 10 mg =, PO, Daily, # 90 tab(s), 3 Refill(s), Pharmacy: [facility], 157, cm, 01/27/20 7:58:00 EST, Height, kg, 01/27/20 7:58:00 EST, Dosing Weight Start Date: 01/17/21 Status: Ordered pravastatin sodium 20 mg oral tablet (2 sources) HMG-CoA Reductase Inhibitor Start: 01-28-2019 Pravachol 20 mg oral tablet Dose : 20 mg = 1 tab(s), Oral, qDay, # 30 tab(s), 6 Refill(s), Pharmacy: [facility] Start Date: 01/28/19 Status: Ordered Super B Complex oral tablet (2 sources) Start: 01-14-2019 take 1 tablet by mouth once daily Super B Complex oral tablet Dose = 1 tab(s), Oral, Daily, # 30 tab(s), 0 Refill(s) Start Date: 01/14/19 Status: Ordered Vitamin D3 (2 sources) Start: 10-21-2018 take 1 tablet by mouth once daily, then take 2 tablets by mouth once daily Vitamin D3 Dose : 2,000 Int unit =, Oral, Daily, 2 tab daily, 0 Refill(s) Start Date: 10/21/18 Status: Ordered Problems Problem Classification Problem Date Documented Da te Episodic/Chronic Diabetes mellitus without complication (2 sources) Diabetes mellitus 10-16-2018 Chronic Disorders of lipid metabolism (2 sources) Mixed hyperlipidemia 10-16-2018 Chronic Essential hypertension (2 sources) Benign essential hypertension 10-16-2018 Chronic Mood disorders (2 sources) Depressive disorder 10-16-2018 Chronic Results Test Name Value Interpretation Reference Range Facil ity Encounters Encounter Date Encounter Type Care Provider Facility Start: 02-01-2021 End: 02-05-2021 Outreach Lab PUSHPA CLARK MD [facility] Start: 02-01-2021 End: 02-01-2021 Patient encounter procedure PUSHPA CLARK MD [facility] Procedures Date Procedure Procedure Detail Performing Clinician Start: 03-11-2020 Lumpectomy of right breast PUSHPA CLARK MD Start: 03-11-2020 Sebaceous cyst (morphologic abnormality) PUSHPA CLARK MD Start: 01-03-2018 Screening mammography A NASEEM CLARK MD Immunizations Immunization Date Immunization Notes Care Provider Fa [facility] 12-08-2019 influenza virus vaccine, unspecified formulation PUSHPA CLARK MD [facility] Social History Date Type Detail Facility Start: 01-14-2019 Never smoked tobacco (f inding) [facility] Evaluation + Plan note 02-01-2021 LaboratoryRadiology Note Date & Type Note Facility 02-01-2021 Evaluation + Plan note Future Scheduled TestsPathology Director Funds Development Request 02/01/21US Breast Right Complete 05/06/20[facility] Mammo Diagnostic Right w/ Chris 05/16/20[facility] Mammo Screening Bilateral w/ Chris 02/01/21 [facility] Progress note 05-20-2020 Note Date & Type Note Facility 05-20-2020 Note HNO ID: [id number] Author: Monica Pérez (Tech) Service: ? Author Type: Mesh Cutter Type: Progress Notes Filed: 05/20/2020 2:27 PM Note Text: PATIENT IDENTITY VERIFICATION COMPLETED USING TWO (2) STANDARD IDENTIFIERS: Name and Date of confirmed by patient verbally. Procedure: Breast BX, Vacuum Assist and Clip Deployment Site Verification: right No Nursing No Allergies ALLERGIES Allergen Reactions - Demerol [Meperidine* Vomiting Is the patient having any pain? None Physician, Nurse, Technologist: Monica Pérez PREOPERATIVE/PROCEDURAL VERIFICATION: Patient verified by: Name, Medical Record Number and Date of Procedure to be performed: Breast BX, Vacuum Assist and Clip Deployment Site of the procedure confirmed:Yes Site:right Patient position: Prone Equipment/implant present:Clip and Imaging Data Staff involved: Surendra Nolen MD Relevant documentation, images, implants or special equipment present: Yes MARKING THE SITE: Procedural site verified by:Physically marking the site on or near incision site, with persistent marker and remains visible once patient prepped. PROCEDURAL TIME OUT: All team activity stops Time out verification includes:Audible time-out documented: Yes. Time: 012 Two Patient Identifiers Correct side and site marking Accurate Consent Agreement on the procedure to be done Correct Positioning Imaging and Test Results Properly Labeled and Displayed Irrigation Fluids/Flushes prepared and labeled correctly Safety Precautions Based on Patient History or Medication Alcohol-based skin prep unit dose applicator used: ChloraPrep No soaking of the patient's hair or linens noted NUMBER OF SPECIMENS SENT TO LAB: 1 Sign in Communication: Completed Time Out: Team Confirms the Correct Patient, Correct Procedure, Correct Site and Site Marking, Correct Position (if applicable). Time: 0125 Affirmation of Time Out: N/A Sign Out Discussion: Completed [facility] Progress note 05-20-2020 Note Date & Type Note Facility 05-20-2020 Note HNO ID: [id number] Author: Monica Pérez (Tech) Service: ? Author Type: Mesh Cutter Type: Progress Notes Filed: 05/20/2020 2:23 PM Note Text: Radiology Service Progress Note PATIENT NAME: Kirill Almazan DATE OF SERVICE: May 20, 2020 TIME: 2:22 PM PATIENT IDENTITY VERIFICATION COMPLETED USING TWO (2) IDENTIFIERS: Name and Date of confirmed by patient verbally. FALL SCREENING: Has the patient had 2 falls in the last year or 1 fall with injury or currently using an Ambulatory Assistive Device (Walker, Cane, Wheelchair, Crutches, etc.)? No PATIENT GENDER DATA: Female. status: : No status: NO. PATIENT RELEVANT IMPLANT DATA REVIEWED: Yes RADIOLOGY DEPARTMENT: Biopsy and Mammography PERIPHERAL IV DATA: Not applicable SIGNED BY: Monica Pérez May 20, 2020 2:22 PM [facility] Progress note 05-20-2020 Note Date & Type Note Facility 05-20-2020 Note HNO ID: [id number] Author: Monica Pérez (Tech) Service: ? Author Type: Mesh Cutter Type: Progress Notes Filed: 05/20/2020 2:25 PM Note Text: AMBULATORY PATIENT EDUCATION RADIOLOGY TOPIC: Procedure/Surgery: READINESS TO LEARN COGNITIVE ABILITY: Alert and oriented MOTIVATION TO LEARN: Eager FAMILY SUPPORT: None - Unavailable/disinterested INSTRUCTION PROVIDED TO: Patient PATIENT LEARNS BEST BY: Individual Instruction Written Instruction - Hand-outs Verbal Instruction FACTORS AFFECTING LEARNING: None PHYSICAL LIMITATIONS AFFECTING LEARNING: None LEARNING RESPONSE Radiology Procedures Breast BX, Vacuum Assist and Clip Deployment METHOD OF INSTRUCTION: Individual instruction Written instruction - handouts Verbal instruction PATIENT / FAMILY RESPONSE: Performs skill independently: Wound care FOLLOW-UP PLAN: Complete - No need for follow-up SUPPLEMENTAL MATERIAL: Homegoing instructions REFERRAL (RECOMMENDATION): None [facility] Progress note 05-05-2020 Note Date & Type Note Facility 05-05-2020 Note HNO ID: [id number] Author: Carmelina Monroe Service: ? Author Type: Physician Type: Progress Notes Filed: 05/05/2020 9:23 AM Note Text: Reviewed mammogram from 05/04/[address] Ryder. Agree with RIGHT tomosynthesis guided biopsy for distortion seen best on screening tomosynthesis views. Chika Hill RN will schedule the patient. [facility] Progress note 05-04-2020 Note Date & Type Note Facility 05-04-2020 Note HNO ID: [id number] Author: Sal Hanson Service: ? Author Type: Canceling And Cutting Control Clerk Type: Progress Notes Filed: 05/04/2020 2:41 PM Note Text: Radiology Service Progress Note PATIENT NAME: Kirill Almazan DATE OF SERVICE: May 04, 2020 TIME: 2:41 PM PATIENT IDENTITY VERIFICATION COMPLETED USING TWO (2) IDENTIFIERS: Name and Date of confirmed by patient verbally. FALL SCREENING: Has the patient had 2 falls in the last year or 1 fall with injury or currently using an Ambulatory Assistive Device (Walker, Cane, Wheelchair, Crutches, etc.)? No PATIENT GENDER DATA: Female. status: : No status: N/A PATIENT RELEVANT IMPLANT DATA REVIEWED: Not Applicable RADIOLOGY DEPARTMENT: Ultrasound PERIPHERAL IV DATA: Not applicable SIGNED BY: SAL HANSON RDMS RVBandar May 04, 2020 2:41 PM [facility] course Narrative Note Date & Type Note Facility Hospital course Narrative No data available for this section [facility] Hospital Discharge instructions Note Date & Type Note Facility Hospital Discharge instructions No data available for this section [facility] Summary Purpose Family History No Family History Records FoundNo Family History Records Found Advance Directives No Advanced Directives Records FoundNo Advanced Directives Records Found Additional Source Comments INFORMATION SOURCE (unrecogn ized section and content) DATE CREATED AUTHOR AUTHOR'S ORGANIZ ATION 04/12/2021 [facility] FOR RECORDS PERTAINING TO PATIENTS WHO ARE OR HAVE BEEN ENROLLED IN A CHEMICAL DEPENDENCY/SUBSTANCEABUSE PROGRAM, SOME INFORMATION MAY BE OMITTED. This clinical summary was aggregated from multiple sources. Caution should be exercised in using it in the provision of clinical care. This summary normalizes information from multiple sources, and as a consequence, information in this document may materially change the coding, format and clinical context of patient data. In addition, data may be omitted in some cases. CLINICAL DECISIONS SHOULD BE BASED ON THE PRIMARY CLINICAL RECORDS. [employer] provides no warranty or guarantee of the accuracy or completeness of information in this document.
== END | disposition home or self-care (01) ==
LOC: OPBI 08:29
PROVIDERS: PCP Internal Medicine; Referring Provider Internal Medicine; Visit Provider Internal Medicine
DX: Z12.31 Encounter for screening mammogram for malignant neoplasm of breast (principal)
CPT/HCPCS: 77063; 77067

== ENCOUNTER → 2023-05-29 | Outpatient (CLI) | payer MEDICARE, SELFPAY ==
--- NOTE | 2023-05-29 06:38 | CT_ITS ---
STUDY: CT CHEST WITH CONTRAST REASON FOR EXAM: Female, 68 years old. 3 month history of cough. RADIATION DOSAGE (If Supplied By Facility): CTDIvol = ( 16.52 ) mGy, DLP = ( 1284.18 ) mGycm TECHNIQUE: Transaxial imaging was performed following intravenous administration of IV 100mL Isovue-370. Multiplanar coronal and sagittal images were reformatted. Individualized dose optimization techniques were used for this CT. COMPARISON: Comparison is made with prior chest radiograph dated May 14, 2023. FINDINGS: CHEST 7.1 mm cyst in the isthmus of the thyroid gland. The lungs are normal. There is no demonstrated pleural abnormality. There are calcifications of the coronary arteries. Normal mediastinum. Normal hilar regions. Normal unenhanced pulmonary arteries. There is atherosclerotic calcification of the aortic arch. There are degenerative changes of the thoracic spine. Hepatomegaly. 1.2 cm cyst in the medial midportion of the right lobe of the liver. CT/Chest WITH Contrast IMPRESSION: No acute abnormality is seen. Electronically Signed: Juanito Willoughby MD at 9:47 EDT ,
[2023-05-29 07:02] LABS: CREATININE FINGERSTICK < 1.0 mg/dL (0.55-1.02); EGFR FINGERSTICK > 60.0000 mL/min (>60)
== END | disposition home or self-care (01) ==
LOC: CT 06:37
PROVIDERS: PCP Internal Medicine; Referring Provider Internal Medicine; Visit Provider Internal Medicine
DX: R05.3 Chronic cough (principal)
CPT/HCPCS: 71260; Q9967

== ENCOUNTER → 2023-06-19 | Outpatient (CLI) | payer MEDICARE, SELFPAY ==
[2023-06-25 15:08] LABS: HPV APTIMA, High Risk Negative (Negative)
== END | disposition home or self-care (01) ==
LOC: LABSPEC 16:25
PROVIDERS: PCP Internal Medicine; Referring Provider Nurse Practitioner Family; Visit Provider Nurse Practitioner Family
DX: Z12.4 Encounter for screening for malignant neoplasm of cervix (principal)
CPT/HCPCS: 87624; 88175; G0145

== ENCOUNTER → 2023-07-15 | Outpatient (CLI) | payer MEDICARE, SELFPAY ==
--- NOTE | 2023-07-15 06:54 | ECHOCS_ITS ---
Reason For Study: CAD/ASHD Procedure This was a 2D Doppler, Color Flow transthoracic echocardiogram. The study was technically difficult. Contrast injection was performed. Exam performed in department. Left Ventricle Normal LV size. Left ventricular systolic function is normal. The estimated ejection fraction is 60 %. Stage 1 diastolic dysfunction. No regional wall motion abnormalities noted. Right Ventricle Normal RV size. Normal systolic function. Atria The left atrium is mildly enlarged. Normal right atrium. Mitral Valve Normal mitral valve. Tricuspid Valve Normal tricuspid valve. Mild (1+) tricuspid valve insufficiency. Pulmonary artery systolic pressure is 30 mmHg. Pulmonic Valve The pulmonic valve is not well visualized. Great Vessels Normal aortic root. Pericardium/Pleural No pericardial effusion. Medication Diluted definity 2ml given slow IV push to enhance endocardial definition. MMode/2D Measurements & Calculations Ao root diam: 4.0 cm LAV(MOD-bp): 72.3 ml LVAd ap4: 32.1 cm2 LAV(MOD-bp) Indexed: 34.0 ml/m2 LVLd ap4: 7.6 cm LAV(MOD-sp2): 70.9 ml EDV(MOD-sp4): 105.0 ml LAV(MOD-sp4): 66.8 ml EDV(sp4-el): 114.5 ml LVAs ap4: 13.5 cm2 LVLs ap4: 5.4 cm ESV(MOD-sp4): 27.4 ml ESV(sp4-el): 28.9 ml EF(MOD-sp4): 73.9 % EF(sp4-el): 74.7 % SV(MOD-sp4): 77.5 ml SV(sp4-el): 85.6 ml LA A4 area: 22.7 cm2 LA dimension(2D): 4.8 cm RA A4 area: 14.3 cm2 TAPSE: 2.4 cm Time Measurements MV dec time: 0.24 sec Doppler Measurements & Calculations MV E max cecilio: 107.1 cm/sec Lat Peak E' Cecilio: 8.5 cm/sec Med Peak E' Cecilio: 6.2 cm/sec MV A max cecilio: 126.7 cm/sec E/E' lat: 12.6 E/E' med: 17.3 MV E/A: 0.85 MV V2 max: 127.2 cm/sec MV dec slope: 453.0 cm/sec2 Ao V2 max: 154.6 cm/sec MV max P.5 mmHg Ao max P.6 mmHg MV V2 mean: 78.4 cm/sec Ao V2 mean: 105.5 cm/sec MV mean P.8 mmHg Ao mean P.1 mmHg MV V2 VTI: 41.4 cm Ao V2 VTI: 36.7 cm AV (velocity ratio): 0.92 LV V1 max: 144.8 cm/sec TR max cecilio: 256.3 cm/sec LV V1 max P.4 mmHg TR max P.3 mmHg LV V1 mean P.1 mmHg LV V1 mean: 108.0 cm/sec LV V1 VTI: 33.9 cm ECHO/Echo Complete W/ Contrast Interpretation Summary Normal LV size. Left ventricular systolic function is normal. The estimated ejection fraction is 60 %. Stage 1 diastolic dysfunction. Pulmonary artery systolic pressure is 30 mmHg. Contrast injection was performed. Ordering Physician: Adriel Burgos Referring Physician: Adriel Burgos Performed By: Marcie Clark RCS
--- NOTE | 2023-07-15 18:27 | STRESSREP ---
Stress Test Report Pharmacologic myocardial perfusion stress test. 68-year-old lady with a family history of coronary disease Resting EKG demonstrates sinus rhythm with a rate of 64 bpm. Resting blood pressure is 130/82 mmHg. 0.4 mg of regadenoson was infused per usual protocol followed by rapid intravenous saline flush injection. Continuous EKG monitoring was performed. The maximum heart rate was 83 bpm which was 54% of max impacted heart rate the maximum workload was 1 metabolic equivalent. At rest there were no ST or T wave changes noted to suggest ischemia and at peak infusion nonspecific ST changes were noted which did not meet the criteria for ischemia. No clinical angina is noted. The final blood pressure was 122/70 mmHg. Myocardial perfusion protocol. 14.1 mCi of technetium 99m sestamibi was injected at rest. 0.4 mg of regadenoson was infused per usual protocol. At peak infusion 44.4 mCi of technetium 99m sestamibi was injected stress images were obtained stress and rest images were reconstructed and compared in the short axis vertical long and horizontal long axis. Gated images were also obtained. Perfusion SPECT analysis: Review of the stress images demonstrate normal uptake of tracer noted in all areas of the myocardium. The resting images similar demonstrated normal uptake of tracer noted in all areas of the myocardium. No areas of reversibility are noted to suggest ischemia and no previous infarct is noted. Gated SPECT analysis: The gated ejection fraction is 72%. Conclusion: Normal pharmacologic myocardial perfusion stress test. Preserved ejection fraction.
== END | disposition home or self-care (01) ==
LOC: CVS 06:45
PROVIDERS: PCP Internal Medicine; Referring Provider Internal Medicine Cardiovascular Disease; Visit Provider Internal Medicine Cardiovascular Disease
DX: Z98.890 Other specified postprocedural states (principal); I25.10 Atherosclerotic heart disease of native coronary artery without angina pectoris
CPT/HCPCS: 78452; 93017; 93306; A9500; Q9957; A4216; C8929; J2785

== ENCOUNTER 2023-10-28 06:21 | Day surgery (SDC) | payer MEDICARE, SELFPAY ==
[2023-10-28] VITALS (7 sets, daily range): BP systolic 97–134; BP diastolic 55–73; PULSE 65–74; RESP 16; TEMP 36.5–37.1; O2SAT 93–96; BMI 45.3
--- NOTE | 2023-10-28 | COLBX_PTH ---
PATIENT: KIRILL NI LOC: EN U#:[id number] AGE/SX: 68/F ROOM: RE10/28/[address]: Dr. Shayla Salguero MD : [id number] BED: DIS: 10/28/2023 SPEC #: [id number] RECD: 10/28/23 12:45 STATUS: ZEUS RETrang #: [id number] RONNELL: 10/28/23 00:[address]: Shayla Salguero DEPT: SURGICAL PATHOLOGY RECD BY: Marco Elizalde ENTERED: 10/28/23 12:46 SP TYPE: COLON BX OT DR: Dr. Maricarmen Tavares MD Tissues: Descending colon Procedures: Surgery Specimen Level IV HEADER OPERATION: Colonoscopy, polypectomy PRE-OP DIAGNOSIS: Colon screening TISSUE SUBMITTED: Descending colon polyps MICROSCOPIC DIAGNOSIS Descending colon polyps, biopsy: Tubular adenoma. Hyperplastic polyp. AM/mr 10/29/2023 MICROSCOPIC DESCRIPTION Slides are reviewed. GROSS DESCRIPTION Received in fixative is one container labeled with the patient's name and designated Descending colon polyps. The specimen consists of multiple irregular fragments of light turner soft tissue that in aggregate measure 0.6 x 0.4 x 0.1 cm. The specimen is totally submitted in one cassette. ZITA/ 10/28/2023 TC:5 CPT:52870
[2023-10-28] MEDS: Lactated Ringers 1,000 ML 15 ML IV (07:08)
--- NOTE | 2023-10-28 07:14 | H&P.OPEN ---
[facility] - General General Date of Service: 10/28/23 HPI Narrative KIRILL NI, is a 68 F who presents for a screening colonoscopy. Patient last colonoscopy was about 17 years ago negative per patient by Dr. Boateng, patient has done 3 Cologuard's which have been negative as well. Patient has bowel movements daily denies any blood. Patient has no family history of colon cancer. Patient denies any chronic abdominal pain/nausea/vomiting/reflux. [facility] Medical History Cardiology follow-up encounter History of echocardiogram History of stress test Diabetes FH: sudden cardiac (SCD) Chronic cough Retinal hemorrhage, right eye Hyperopia of both eyes with regular astigmatism and presbyopia Epiretinal membrane (ERM) of left eye Combined forms of age-related cataract, bilateral Venous insufficiency of both lower extremities Insulin dependent diabetes mellitus Kidney stones Injury of head and neck Leg cramps Anxiety and depression Osteoarthritis of knee Meralgia paresthetica of left side Sacroiliitis Sebaceous cyst of breast Axillary adenopathy Radial scar of right breast Mixed hyperlipidemia Hypertension associated with diabetes Diabetes type 2, controlled Brain bleed History of kidney stones Migraine Breast lump Arthritis Seasonal allergic rhinitis Home Medications ?Medication ?Instructions ?Recorded ?Last Taken ?Type pen needle, diabetic 32 gauge x #100 ea 12/19/21 Unknown Rx (BD Ultra-Fine Ale Pen Needle) FreeStyle Azucena 3 Sensor #2 ea 10/29/22 Unknown Rx (blood-glucose sensor) paroxetine HCl 10 mg tablet 10 mg PO DAILY #90 tabs 02/08/23 10/28/23 Rx amlodipine 10 mg tablet 10 mg PO DAILY #90 tabs 06/19/23 10/28/23 Rx insulin lispro 100 unit/mL 30 unit subcut TID 06/19/23 Unknown History subcutaneous pen (Humalog KwikPen (U-100) Insulin) atorvastatin 10 mg tablet 10 mg PO DAILY #90 tabs 08/09/23 Unknown Rx insulin glargine 100 unit/mL (3 18 unit subcut QHS 09/16/23 10/27/23 History mL) subcutaneous pen cholecalciferol (vitamin D3) 25 25 mcg PO DAILY 10/21/23 Unknown History mcg (1,000 unit) capsule loratadine 10 mg tablet (Claritin) 10 mg PO DAILY 10/21/23 Unknown History psyllium husk 0.4 gram capsule 0.4 g PO DAILY 10/21/23 Unknown History (Metamucil) metoprolol succinate 50 mg 50 mg PO DAILY 10/23/23 10/28/23 History tablet,extended release 24 hr Allergy/AdvReac Type Severity Reaction Status Date / Time adhesive Allergy Mild Hives Verified 10/28/23 07:06 meperidine (From Demerol) AdvReac Unknown Vomiting Verified 10/28/23 07:06 Family History Mother Breast cancer Arthritis Father Arthritis Diabetes Hypertension High cholesterol Lung cancer Brother Asthma Sister Sudden cardiac Surgical History Hx of colonoscopy History of total knee replacement (TKR) History of excision of epidermal inclusion cyst S/P lumpectomy, right breast S/P breast biopsy, left Hx of knee surgery Hx of hand surgery Hx of tubal ligation History of Social History household members: spouse current occupational status: retired Smoking Status: Never smoker second hand exposure: No alcohol intake: current alcohol intake frequency: holidays/special occasions only substance use type: does not use what type of physical activity do you participate in: walking frequency: 1-2 times per week seatbelt use: always Past Medical/Surgical History Planned Operation Planned Operative Procedure(s): CSCOPE S.O.S: No Previous Hospitalizations/Surgeries HX Hospitalizations: No HX of Surgeries: Csection Tubal ligation Breast biopsy Any Problems With Anesthesia: No You/Your Family Experience Fever (Hyperthermia) With Anes: No Cholinesterase deficiency: No Cardiovascular Hx Chest Pain within Last 2 months: No Hx of Irregular Heartbeat and/or Afib: No Hx Heart Attack: No Hx Congestive Heart Failure: No Hx Rheumatic Fever: No Hx Hypertension: Yes (CONTROLLED WITH MED) Hx Internal Defibrillator: No Hx Pacemaker: No Hx Cardiac Catheterization: No Hx Cardiac Surgery/Stents/Etc.: No Hx Stress Test: No Hx Pain in Legs when Walking/Leg Cramps: No Respiratory Chronic Cough: No HX of Shortness of Breath: No Hoarseness: No Hx Chronic Obstructive Pulmonary Disease (COPD): No Hx Asthma: No Hx Emphysema: No Hx Sleep Apnea: No Hx Respiratory Tract Infection/Cold (presently): No Do You Snore Loudly (louder than talking or can be heard): Yes Do You Often Feel Tired/ Fatigued/ Sleepy Dring Daytime?: No Has Anyone Observed You Stop Breathing During Sleep?: No Result (for STOP score): Positive Hx Smoking: No Smoking Status: Never smoker Gastrointestinal Hx Gastrointestinal Disorders: No Hx Gastrointestinal Bleed: No Hx Ulcer: No Hx Hiatal Hernia: No Difficulty Chewing/Swallowing: No Special diet followed at home: No Hx Unplanned Weight Loss of 20#: No HX Unplanned Weight Gain of 20#: No Neurological Hx Seizures: No HX Syncope/Blackout Spells/Unconsciousness: No Hx Transient Ischemic Attacks (TIA): No Hx Multiple Sclerosis: No Hx Parkinson's Disease: No Hx Head/Neck Injury: No Hx Headaches: No Hx Back Injury/Pain: No Recent Onset of Speech Difficulty: No Restless Legs: No Does patient have nerve stimulator: No Blood Disorder Hx Leukemia: No Bleeding Tendencies: No Hx Deep Vein Thrombosis: No Hx High Cholesterol: No Blood Transmitted Disease: No Hx Hepatitis: No Hx Cirrhosis: No Hx Anemia: No Hx Blood Disorders: No Reproduction : No Hx Tubal Ligation: Yes Are You Post Menopause: Yes Genitourinary Hx Renal Disease: No Musculoskeletal Hx Arthritis: Yes Hx Rheumatoid Arthritis: No Hx Gout: No Recent Onset of an Orthopedic Problem: No Endocrine Hx Diabetes: Yes Insulin: Yes (lantus) Thyroid Disease: No Hx Steroid Therapy: No Psycho/Social Hx Substance Use: No Hx Alcohol Use: Yes (rarely) Hx Anxiety: No Hx Depression: No Mental Illness: No Hx Dementia: No Miscellaneous Hx Cancer: No Recent Exposure to Contagious Disease: No Hx of C-Diff: No Any Loose Teeth: No Allergies adhesive Allergy (Mild, Verified 10/28/23 07:06) Hives from bandaid meperidine (From Demerol) Adverse Reaction (Unknown, Verified 10/28/23 07:06) Vomiting Discharge Is Pt Admitted From a Senior Care, or a Penitentiary: No After D/C, Where Do you Plan to Go: Return Home From the PAT History Number of Risk Factors: 3 Physical Exam Const alert, oriented x3 and no apparent distress HEENT normocephalic and head/scalp atraumatic Resp normal respiratory effort Cardio regular rate GI soft to palpation and non-tender; Negative for non-distended Palpation: Negative for guarding Extremity no clubbing, cyanosis or edema Skin no rashes or lesions noted Neuro CN's II-XII intact bilaterally Psych mental status grossly normal Assessment & Plan Assessment/Plan (1) Encounter for screening for malignant neoplasm of colon: Surgery Risks - Colonoscopy I discussed with the patient the risks of the procedure: Yes Risks Include but are not Limited To: Risks include but are not limited to: Bleeding, perforation requiring further surgery, inability to complete colonoscopy requiring barium enema.
--- NOTE | 2023-10-28 07:17 | PRE.ANES_ITS ---
ASA Classification* ASA Classification ASA Classification: 3 Assessment & Plan Anesthesia* Anesthesia Assessment Anesthesia Assessment: Discussed sedation and/or anesthesia options, risks, benefits, and alternatives with patient/parents/legal guardian/POA. Questions invited. The patient/parents/legal guardian/POA seems to understand and agrees to proceed with anesthesia plan. Reviewed the physical assessment, medical history, allergy history and patient home medications list prior to surgery/procedure/anesthetic and documented any changes. Performed airway and anesthesia risk assessments. Anesthesia Type Anesthesia Type: MAC (see written pre anesthesia record for full assessment) Anesthesia Focused Assessment* Temperature: 98.3 F Pulse Rate: 74 Blood Pressure: 134/73 Respiratory Rate: 16 Pulse Ox: 96 Airway Assessment Mouth opens: >3 cm Mallampati Score: III Focused Labs Anesthesia Preop lab: CBC WBC 7.6 K/mm3 (4.4-11.0) 02/08/23 08:56 RBC 4.42 M/mm3 (4.2-5.4) 02/08/23 08:56 Hgb 13.0 g/dL (12.0-15.0) 02/08/23 08:56 Hct 42.7 % (37-47) 02/08/23 08:56 Plt Count 313 K/mm3 (150-450) 02/08/23 08:56 CHEMISTRY Potassium 4.4 mmol/L (3.5-5.1) 02/08/23 08:56 Sodium 137 mmol/L (136-145) 02/08/23 08:56 Magnesium 2.2 mg/dL (1.6-2.6) 02/19/22 12:45 BUN 15 mg/dL (7-18) 02/08/23 08:56 Creatinine 0.88 mg/dL (0.55-1.02) 02/08/23 08:56 Glucose 308 mg/dL (74-106) H 02/08/23 08:56 POC Glucose 167 mg/dL (74-106) H 02/26/22 16:10 TSH 1.20 uIU/mL (0.358-3.74) 05/24/18 08:06 COAG Pre-Assessment Diagnosis/Proposed Procedure Planned Operative Procedure(s): CSCOPE Anesthesia History 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 When Was Last Pacemaker Check QUESTION #4 FULL TEXT: You/Your Family Experience fever (hyperthermia) with Anesthesia Last Oral Intake Last Oral intake: Last Oral Intake NPO since 03:30 10/28/23 07:10 Meds taken in AM with sips of Yes 10/28/23 07:10 water? 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 Female Yes 10/23/23 12:45 HX of Motion Sickness No 10/23/23 12:45 HX of N/V After Surgery No 10/23/23 12:45 Non-Smoker Yes 10/23/23 12:45 Duration of Surgery greater No 10/23/23 12:45 than 60 minutes Number of Risk Factors 2 10/23/23 12:45 PONV Score Moderate Risk 10/23/23 12:45 Height & Weight Height & Weight: Anesthesia: Height & Weight Height 5 ft 2 in 10/28/23 07:10 Weight: 112.6 kg 10/28/23 07:10 Body Mass Index (BMI) 45.3 10/28/23 07:10 Respiratory Assessment Respiratory Assessment - groundskeeping maintenance worker: Respiratory Tract Infection Hx - groundskeeping maintenance worker Hx Respiratory Tract Infection No 10/28/23 07:15 STOP Sleep Apnea STOP Sleep Apnea - groundskeeping maintenance worker: STOP Sleep Apnea - groundskeeping maintenance worker Hx Hypertension Yes: CONTROLLED WITH MED 10/28/23 07:15 Hx Sleep Apnea No 10/28/23 07:15 CPAP BIPAP Do you snore loudly (louder Yes 10/28/23 07:15 than talking or can be heard Do you often feel tired/ No 10/28/23 07:15 fatigued/ sleepy during daytime? Has anyone observed you stop No 10/28/23 07:15 breathing during sleep? STOP Results Positive 10/28/23 07:15 QUESTION #5 FULL TEXT : Do you snore loudly (louder than talking or can be heard through closed doors)? 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 Specify any problems Hx of Preganancy in last 3 N/A 10/23/23 12:45 Months Nurse Filling Out Transfusion NBUCHER 10/23/23 12:45 & Questions: Date: 10/23/23 10/23/23 12:45 Time: 12:46 10/23/23 12:45 Patient unable to answer at this time (ie. 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: /Reproductive Hx- groundskeeping maintenance worker Hx Now No 10/28/23 07:15 Gestational Age (in weeks): EDC: Hx Hx Para Hx Section SAB No 10/23/23 12:45 Active Medications Active Medications: Current Medications Generic Name Dose Route Start Last Admin Trade Name Freq PRN Reason Stop Dose Admin Lactated Ringer's 1,000 mls @ 15 mls/hr 10/28/23 06:45 10/28/23 07:08 IV 15 mls/hr .Q48H ELENI Administration PFSH Medical History Cardiology follow-up encounter History of echocardiogram History of stress test Diabetes FH: sudden cardiac (SCD) Chronic cough Retinal hemorrhage, right eye Hyperopia of both eyes with regular astigmatism and presbyopia Epiretinal membrane (ERM) of left eye Combined forms of age-related cataract, bilateral Venous insufficiency of both lower extremities Insulin dependent diabetes mellitus Kidney stones Injury of head and neck Leg cramps Anxiety and depression Osteoarthritis of knee Meralgia paresthetica of left side Sacroiliitis Sebaceous cyst of breast Axillary adenopathy Radial scar of right breast Mixed hyperlipidemia Hypertension associated with diabetes Diabetes type 2, controlled Brain bleed History of kidney stones Migraine Breast lump Arthritis Seasonal allergic rhinitis Home Medications ?Medication ?Instructions ?Recorded ?Last Taken ?Type pen needle, diabetic 32 gauge x #100 ea 12/19/21 Unknown Rx (BD Ultra-Fine Ale Pen Needle) FreeStyle Azucena 3 Sensor #2 ea 10/29/22 Unknown Rx (blood-glucose sensor) paroxetine HCl 10 mg tablet 10 mg PO DAILY #90 tabs 02/08/23 10/28/23 Rx amlodipine 10 mg tablet 10 mg PO DAILY #90 tabs 06/19/23 10/28/23 Rx insulin lispro 100 unit/mL 30 unit subcut TID 06/19/23 Unknown History subcutaneous pen (Humalog KwikPen (U-100) Insulin) atorvastatin 10 mg tablet 10 mg PO DAILY #90 tabs 08/09/23 Unknown Rx insulin glargine 100 unit/mL (3 18 unit subcut QHS 09/16/23 10/27/23 History mL) subcutaneous pen cholecalciferol (vitamin D3) 25 25 mcg PO DAILY 10/21/23 Unknown History mcg (1,000 unit) capsule loratadine 10 mg tablet (Claritin) 10 mg PO DAILY 10/21/23 Unknown History psyllium husk 0.4 gram capsule 0.4 g PO DAILY 10/21/23 Unknown History (Metamucil) metoprolol succinate 50 mg 50 mg PO DAILY 10/23/23 10/28/23 History tablet,extended release 24 hr Allergy/AdvReac Type Severity Reaction Status Date / Time adhesive Allergy Mild Hives Verified 10/28/23 07:06 meperidine (From Demerol) AdvReac Unknown Vomiting Verified 10/28/23 07:06 Family History Mother Breast cancer Arthritis Father Arthritis Diabetes Hypertension High cholesterol Lung cancer Brother Asthma Sister Sudden cardiac Surgical History Hx of colonoscopy History of total knee replacement (TKR) History of excision of epidermal inclusion cyst S/P lumpectomy, right breast S/P breast biopsy, left Hx of knee surgery Hx of hand surgery Hx of tubal ligation History of Social History household members: spouse current occupational status: retired Smoking Status: Never smoker second hand exposure: No alcohol intake: current alcohol intake frequency: holidays/special occasions only substance use type: does not use what type of physical activity do you participate in: walking frequency: 1-2 times per week seatbelt use: always Review of Systems (Anesthesia) ROS Narrative System reviewed and no additional complaints, except as documented.
[2023-10-28 07:39] LABS: Bedside Glucose 185 mg/dL (74-106)
--- NOTE | 2023-10-28 08:31 | PCM.POST.ANE ---
Anesthesia: Postop Eval I Current Vital Signs Temperature: 98.7 F Pulse Rate: 72 Blood Pressure: 97/55 Respiratory Rate: 16 Pulse Ox: 96 Oxygen Delivery Method: Room Air Assessment Airway patent: Yes Spontaneous unlabored respirations: Yes Mental status: Awake and Calm nausea: No Vomiting: No Anesthesia Complication: No Fluid Hydration Crystalloid volume administer (ml): 600 Total IV fluid infused: 600 Progress Note Anesthesia document: Postop Eval 1 completed: Yes
--- NOTE | 2023-10-28 08:32 | OP.COLON_ITS ---
Patient Name: Nella Almazan Procedure Date: 10/28/2023 8:03 AM Date of : 1955 Age: 68 Procedure: Colonoscopy Indications: Screening for colorectal malignant neoplasm Providers: Shayla Salguero MD Medicines: Monitored Anesthesia Care Patient Profile: This is a 68 year old female. Last Colonoscopy: more than 10 years ago. cologuard neg x 3 since colonoscopy Complications: No immediate complications. Procedure: Pre-Anesthesia Assessment: - Prior to the procedure, a History and Physical was performed, and patient medications and allergies were reviewed. The patient's tolerance of previous anesthesia was also reviewed. The risks and benefits of the procedure and the sedation options and risks were discussed with the patient. All questions were answered, and informed consent was obtained. Prior Anticoagulants: The patient has taken no anticoagulant or antiplatelet agents. ASA Grade Assessment: Per anesthesia. After reviewing the risks and benefits, the patient was deemed in satisfactory condition to undergo the procedure. After I obtained informed consent, the scope was passed under direct vision. Throughout the procedure, the patient's blood pressure, pulse, and oxygen saturations were monitored continuously. The colonoscope was introduced through the anus and advanced to the terminal ileum, with identification of the appendiceal orifice and IC valve. The colonoscopy was performed without difficulty. The patient tolerated the procedure well. The quality of the bowel preparation was good. Scope In: 8:12:12 AM Scope Withdrawal Time 0 hours 7 minutes 39 seconds Scope Out: 8:23:16 AM Total Procedure Duration Time 0 hours 11 minutes 4 seconds Findings: Hemorrhoids were found on perianal exam. Non-bleeding external and internal hemorrhoids were found. The hemorrhoids were small and Grade I (internal hemorrhoids that do not prolapse). Two sessile polyps were found in the descending colon. The polyps were less than 5 mm in size. Multiple small-mouthed diverticula were found in the sigmoid colon and descending colon. The exam was otherwise without abnormality. Impression: - Hemorrhoids found on perianal exam. - Non-bleeding external and internal hemorrhoids. - Two less than 5 mm polyps in the descending colon. - Diverticulosis in the sigmoid colon and in the descending colon. - The examination was otherwise normal. - No specimens collected. Recommendation: - Discharge patient to home. - Resume previous diet. - Continue present medications. - Await pathology results. - Repeat colonoscopy in 5 years for surveillance based on pathology results. Procedure Code(s): --- Professional --- G0121, PT, Colorectal cancer screening; colonoscopy on individual not meeting criteria for high risk Diagnosis Code(s): --- Professional --- Z12.11, Encounter for screening for malignant neoplasm of colon K64.0, First degree hemorrhoids D12.4, Benign neoplasm of descending colon K57.30, Diverticulosis of large intestine without perforation or abscess without bleeding CPT copyright 2021 [employer]. All rights reserved. The codes documented in this report are preliminary and upon wood barker review may be revised to meet current compliance requirements. MD Shayla Reza MD 10/28/2023 8:32:26 AM This report has been signed electronically. Number of Addenda: 2 Note Initiated On: 10/28/2023 8:03 AM Addendum Number: 1 Addendum Date: 11/25/2023 7:31:19 AM Correction: under impression---no specimens collected was incorrect. 2 polyps were removed and sent to pathology. MD Shayla Reza MD 11/25/2023 7:32:19 AM This report has been signed electronically. Addendum Number: 2 Addendum Date: 12/12/2023 1:28:32 PM Cold forceps were used for polypectomy MD Shayla Reza MD 12/12/2023 1:29:03 PM This report has been signed electronically.
--- NOTE | 2023-10-28 08:32 | OP.CCLET_ITS ---
12/12/2023 Maricarmen Tavares MD [address] [place] [address] [place] [address] Re : Colonoscopy procedure for Nella Almazan Dear Dr. Tavarse This procedure was performed on Saturday, October 28, 2023. My impressions and recommendations are as follows: Impressions : - Hemorrhoids found on perianal exam. - Non-bleeding external and internal hemorrhoids. - Two less than 5 mm polyps in the descending colon. - Diverticulosis in the sigmoid colon and in the descending colon. - The examination was otherwise normal. - No specimens collected. Recommendations : - Discharge patient to home. - Resume previous diet. - Continue present medications. - Await pathology results. - Repeat colonoscopy in 5 years for surveillance based on pathology results. My findings are described in the full procedure note, which is enclosed. If I can be of further assistance, please feel free to contact me at Doctor phone number(s): , Work: . Sincerely, MD Shayla Reza MD 10/28/2023 8:32:26 AM This report has been signed electronically.
--- NOTE | 2023-10-28 08:37 | PCM.POSTANE2 ---
Anesthesia Postop Eval I Sum Postop Eval Completion status Anesthesia document: Postop Eval 1 completed: Yes Anesthesia Postop Eval I Summary Anesthesia Postop Eval I Summary: Anesthesia Postop Eval I: Assessment Summary Airway patent Yes 10/28/23 08:33 [email or web address] Spontaneous unlabored Yes 10/28/23 08:33 [email or web address] respirations Mental status Awake,Calm 10/28/23 08:33 [email or web address] nausea No 10/28/23 08:33 [email or web address] Vomiting No 10/28/23 08:33 [email or web address] Anesthesia Postop Eval I: Fluid Summary Crystalloid volume administer 600 10/28/23 08:33 [email or web address] (ml) Colloids volume administered ( ml) Blood Product volume administered (ml) Total IV fluid infused 600 10/28/23 08:33 [email or web address] Anesthesia Postop Eval I: Summary Notes Anesthesia Complication No 10/28/23 08:33 [email or web address] Anesthesia Complication Comment: Post-operative progress note Anesthesia: Postop Eval II Evaluation Mental status: Awake Pain Level: 0 nausea: No Vomiting: No
== END 2023-10-28 09:10 | disposition home or self-care (01) ==
LOC: EN 06:22 → AC 06:23
PROVIDERS: PCP Internal Medicine; Referring Provider Internal Medicine; Visit Provider Surgery
PROC: 0DJD8ZZ Inspection of Lower Intestinal Tract, Via Natural or Artificial Opening Endoscopic (ICD-10-PCS; CPT 45378; principal; 2023-10-28 07:55)
DX: Z12.11 Encounter for screening for malignant neoplasm of colon (principal); Z79.4 Long term (current) use of insulin; E11.9 Type 2 diabetes mellitus without complications; K57.30 Diverticulosis of large intestine without perforation or abscess without bleeding; K64.4 Residual hemorrhoidal skin tags; E78.2 Mixed hyperlipidemia; I10 Essential (primary) hypertension; K64.0 First degree hemorrhoids; D12.4 Benign neoplasm of descending colon; Z79.899 Other long term (current) drug therapy
CPT/HCPCS: 45380; J7120; 82962; 88305; J2405

== ENCOUNTER → 2024-01-14 | Outpatient (CLI) | payer MEDICARE, SELFPAY ==
--- OUTSIDE RECORDS SUMMARY | 2024-01-14 08:32 | XMS RPT_ITS | CCD ---
Author Organization [facility] ion Partnership [facility] Care Team Providers Care Bond Underwriter Name Role Phone AMBER ESTES, PUSHPA Gonsalves Primary Care Physician Allergies Allergy Classification Reported Allergen(s) Allergy Type Date of Onset Reaction(s) Facility (2 sources) Adhesive Tape Drug allergy [facility] (2 sources) Meperidine; Translations: [meperidine] Drug Allergy [facility] Medications Current Medications Medication Drug Class(es) Dates Sig (Normalized) Sig (Original) amLODIPine 5 mg oral tablet (2 sources) Dihydropyridine Calcium Channel Jose Start: 01-17-2021 amLODIPine 5 mg oral tablet Dose : 5 mg = 1 tab(s), Oral, qDay, # 90 tab(s), 3 Refill(s), Pharmacy: [facility], 157, cm, 01/27/20 7:58:00 EST, Height, kg, 01/27/20 7:58:00 EST, Dosing Weight Start Date: 01/17/21 Status: Ordered atenolol 50 mg oral tablet (2 sources) beta-Adrenergic Jose Start: 01-17-2021 atenolol 50 mg oral tablet Dose : 50 mg = 1 tab(s), Oral, qDay, # 90 tab(s), 3 Refill(s), Pharmacy: [facility], 157, cm, 01/27/20 [...] tab(s), 0 Refill(s), 02/06/21 9:34:00 EST, Pharmacy: [facility], 157, cm, 02/01/21 7:52:00 EST, Height, 109.2, kg, 02/01/21 7:52:00 EST, Dosing Weight Start Date: 02/01/21 Stop Date: 02/06/21 Status: Ordered Betamethasone / Clotrimazole (2 sources) Azole Antifungal, Corticosteroid Start: 02-01-2021 Lotrisone 1%-0.05% topical cream Apply 1 deshawn, Topical, BID, # 15 gram(s), 1 Refill(s), Pharmacy: [facility], Cream, 157, cm, [...] food/milk, # 180 tab(s), 3 Refill(s), Pharmacy: [facility], 157, cm, 01/27/20 7:58:00 EST, Height, kg, 01/27/20 7:58:00 EST, Dosing Weight Start Date: 01/29/20 Status: Ordered Misc Medication (2 sources) Start: 01-14-2019 Misc Medication blood sugar support 1 daily, 0 Refill(s) Start Date: 01/14/19 Status: Ordered Amity-3 1050 mg oral capsule (2 sources) Start: 01-14-2019 Amity-3 1050 mg oral capsule Dose : 1,050 mg = 1 cap(s), Oral, qDay, # 90 cap(s), 0 Refill(s) Start Date: 01/14/19 Status: Ordered PARoxetine hydrochloride 10 mg oral tablet (2 sources) Serotonin Reuptake Inhibitor Start: 01-17-2021 take 1 tablet by mouth once daily Paxil 10 mg oral tablet Dose : 10 mg =, PO, Daily, # 90 tab(s), 3 Refill(s), Pharmacy: [facility], 157, cm, 01/27/20 7:58:00 EST, Height, kg, 01/27/20 7:58:00 EST, Dosing Weight Start Date: 01/17/21 Status: Ordered pravastatin sodium 20 mg oral tablet (2 sources) HMG-CoA Reductase Inhibitor Start: 01-28-2019 Pravachol 20 mg oral tablet Dose : 20 mg = 1 tab(s), Oral, qDay, # 30 tab(s), 6 Refill(s), Pharmacy: [facility] Start Date: 01/28/19 [...] Results Test Name Value Interpretation Reference Range Facility [facility] Reporton 2020 [facility] Report . Pathology Reports Accession: Collected Date/Time: Received Date/Time: Pathologist: [id number] 02/01/2021 16:12 EST 02/01/2021 18:00 EST [facility] Report SPECIMEN: Specimen Description: Liquid Prep Specimen: Cervical/Endocervic al Screening or Diagnostic: Screening RELEVANT HISTORY: LMP: POSTMENOPAUSAL [id number] SPECIMEN ADEQUACY: SATISFACTORY FOR EVALUATION ENDOCERVICAL/TRANSF ORMATIONAL ZONE COMPONENT PRESENT INTERPRETATION/RESU LTS: NEGATIVE FOR INTRAEPITHELIAL LESION OR MALIGNANCY COMMENT: This Pap Test was successfully processed and evaluated with the assistance of the [employer] ThinPrep Test Imaging System. Electronically Signed by Pathology report verified by [facility] Screened by: KK Electronically signed by Hetal BAUMAN (ASCP) Sign-Out Date: 02/16/2021 09:41 Performing Lab: [facility], [address] [place] [address] Disclaimer The Pap test is a screening test for cervical cancer. As evidenced by published data, it is subject to both inherent false negative and false positive results. Your patient's results should be interpreted in context with pertinent clinical history including gynecological examination. Normal [facility] ([place]) .Auto DiffOrdered By: Destini Jack on 02-01-2021 Basophil, Absolute 0.10 103/mcL Normal 0.00-0.19 AO A uto Heme SS Comment on above: Performed By: #### C BC, ADIFF, ANEU, CMP, TSH, GFR #### [address] [address] Basophils/100 WBC (Bld) 0.4 % Normal 0.0-2.5 AO Auto Heme SS Comment on above: Performed By: #### C BC, ADIFF, ANEU, CMP, TSH, GFR #### [address] [address] Eosinophil, Absolute 0.30 103/mcL Normal 0.00-0.40 AO Auto Heme SS Comment on above: Performed By: #### C BC, ADIFF, ANEU, CMP, TSH, GFR #### [address] [address] Eosinophils/100 WBC (Bld) 2.7 % Normal 0.0-7.0 AO Auto Heme SS Comment on above: Performed By: #### C BC, ADIFF, ANEU, CMP, TSH, GFR #### [address] [address] Lymphocyte, Absolute 2.20 103/mcL Normal 0.77-3.85 AO Auto Heme SS Comment on above: Performed By: #### C BC, ADIFF, ANEU, CMP, TSH, GFR #### [address] [address] Lymphocytes/100 WBC (Bld) 19.8 % Normal 10.0-50.0 AO Auto Heme SS Comment on above: Performed By: #### C BC, ADIFF, ANEU, CMP, TSH, GFR #### [address] [address] Monocyte, Absolute 0.70 103/mcL Normal 0.15-1.00 AO A uto Heme SS Comment on above: Performed By: #### C BC, ADIFF, ANEU, CMP, TSH, GFR #### [address] [address] Monocytes/100 WBC (Bld) 6.5 % Normal 1.7-13.0 AO Auto Heme SS Comment on above: Performed By: #### C BC, ADIFF, ANEU, CMP, TSH, GFR #### [address] [address] Neutrophils/100 WBC (Bld) 70.6 % Normal 37.0-80.0 AO Auto Heme SS Comment on above: Performed By: #### C BC, ADIFF, ANEU, CMP, TSH, GFR #### [address] [address] .GFROrdered By: SYSTEM ThucyE Subtextual on 02-01-2021 GFR Non- 70 ml/min/1.73sqm Normal AO Chemistry S Comment on above: Result Comment: GFR Population mean for , Non- Americans Ages 20-29 = 116 mL/min/1.73 sq.m. Ages 30-39 = 107 mL/min/1.73 sq.m. Ages 40-49 = 99 mL/min/1.73 sq.m. Ages 50-59 = 93 mL/min/1.73 sq.m. Ages 60-69 = 85 mL/min/1.73 sq.m. Ages 70+ = 75 mL/min/1.73 sq.m. Chronic Kidney Disease: Less than 60 mL/min/1.73 square meters End Stage Renal Disease: Less than 15 mL/min/1.73 square meters Performed By: #### C BC, ADIFF, ANEU, CMP, TSH, GFR #### [place] [id number] GFR 85 ml/min/1.73sqm Normal AO Chemistry S Comment on above: Result Comment: GFR Population mean for , Non- Americans Ages 20-29 = 116 mL/min/1.73 sq.m. Ages 30-39 = 107 mL/min/1.73 sq.m. Ages 40-49 = 99 mL/min/1.73 sq.m. Ages 50-59 = 93 mL/min/1.73 sq.m. Ages 60-69 = 85 mL/min/1.73 sq.m. Ages 70+ = 75 mL/min/1.73 sq.m. Chronic Kidney Disease: Less than 60 mL/min/1.73 square meters End Stage Renal Disease: Less than 15 mL/min/1.73 square meters Performed By: #### C BC, ADIFF, ANEU, CMP, TSH, GFR #### [place] [id number] .NEUABSOrdered By: Marcella chapin on 02-01-2021 Neutrophil, Absolute 7.90 103/mcL High 2.85-6.16 AO Auto Heme SS Comment on above: Performed By: #### C BC, ADIFF, ANEU, CMP, TSH, GFR #### [place] [id number] CBCOrdered By: Marcella mccallum on 02-01-2021 Erythrocyte distribution width (RBC) [Ratio] 13.1 % Normal 11.5-14.5 AO Auto Heme SS Comment on above: Performed By: #### C BC, ADIFF, ANEU, CMP, TSH, GFR #### [place] [id number] Hematocrit (Bld) [Volume fraction] 41.2 % Normal 37.0-47.0 AO Auto Heme SS Comment on above: Performed By: #### C BC, ADIFF, ANEU, CMP, TSH, GFR #### [address] [address] MCH (RBC) [Entitic mass] 30.5 pg Normal 27.0-31.2 AO Auto Heme SS Comment on above: Performed By: #### C BC, ADIFF, ANEU, CMP, TSH, GFR #### [place] [id number] MCV (RBC) [Entitic vol] 91.4 fL Normal 80.0-94.0 AO Auto Heme SS Comment on above: Performed By: #### C BC, ADIFF, ANEU, CMP, TSH, GFR #### [place] [address] Platelet mean volume (Bld) [Entitic vol] 10.1 fL Normal 7.4-10.4 AO Auto Heme SS Comment on above: Performed By: #### C BC, ADIFF, ANEU, CMP, TSH, GFR #### [place] [id number] CBCon 02-01-2021 Hgb 13.7 G/dL Normal 12.0-16.0 [facility] ([place]) Comment on above: Performed By: #### C BC, ADIFF, ANEU, CMP, TSH, GFR #### [place] [address]187 MCHC 33.4 G/dL Normal 33.0-37.0 [facility] ([place]) Comment on above: Performed By: #### C BC, ADIFF, ANEU, CMP, TSH, GFR #### [place] [id number] Platelet 265 10 3/mcL Normal 130-400 [facility] ([place]) Comment on above: Performed By: #### C BC, ADIFF, ANEU, CMP, TSH, GFR #### [place] [address] RBC 4.50 10 6/mcL Normal 4.20-5.40 [facility] ([place]) Comment on above: Performed By: #### C BC, ADIFF, ANEU, CMP, TSH, GFR #### [address] [address] WBC 11.20 10 3/mcL High 4.60-10.80 [facility] ([place]) Comment on above: Performed By: #### C BC, ADIFF, ANEU, CMP, TSH, GFR #### [place] [phone] CMPon 02-01-2021 Albumin Level 3.6 G/dL Normal 3.4-4.8 [facility] ([place]) Comment on above: Performed By: #### C BC, ADIFF, ANEU, CMP, TSH, GFR #### [address] [address] ALT [Catalytic activity/Vol] 25 U/L Normal 14-59 [facility] ([place]) Comment on above: Performed By: #### C BC, ADIFF, ANEU, CMP, TSH, GFR #### [address] [address] AST [Catalytic activity/Vol] 14 U/L Normal 10-40 [facility] ([place]) Comment on above: Performed By: #### C BC, ADIFF, ANEU, CMP, TSH, GFR #### [address] [address] Bili Total 0.5 mg/dL Normal 0.2-1.0 [facility] ([place]) Comment on above: Result Comment: Use of this assay is not recommended for patients undergoing treatment with eltrombopag due to the potential for falsely elevated results. Performed By: #### C BC, ADIFF, ANEU, CMP, TSH, GFR #### [address] [address] BUN/Creatinine Ratio 17 ratio Normal 7-27 [facility] ([place]) Comment on above: Performed By: #### C BC, ADIFF, ANEU, CMP, TSH, GFR #### [address] [address] Total Protein 6.9 G/dL Normal 6.4-8.2 [facility] ([place]) Comment on above: Performed By: #### C BC, ADIFF, ANEU, CMP, TSH, GFR #### [address] [address] CMPOrdered By: Marcella mccallum on 02-01-2021 Albumin/Globulin [Mass ratio] 1.1 {ratio} Normal 1.1-2.5 AO ADM SS Comment on above: Performed By: #### C BC, ADIFF, ANEU, CMP, TSH, GFR #### [address] [address] ALP [Catalytic activity/Vol] 85 U/L Normal 40-135 AO ADM SS Comment on above: Performed By: #### C BC, ADIFF, ANEU, CMP, TSH, GFR #### [address] [address] Calcium [Mass/Vol] 9.1 mg/dL Normal 8.4-10.2 AO ADM SS Comment on above: Performed By: #### C BC, ADIFF, ANEU, CMP, TSH, GFR #### [address] [address] Chloride [Moles/Vol] 103 mmol/L Normal 98-107 AO A DM SS Comment on above: Performed By: #### C BC, ADIFF, ANEU, CMP, TSH, GFR #### [address] [address] CO2 [Moles/Vol] 30 mmol/L Normal 23-31 AO ADM SS Comment on above: Performed By: #### C BC, ADIFF, ANEU, CMP, TSH, GFR #### [address] [address] Creatinine [Mass/Vol] 0.82 mg/dL Normal 0.55-1.02 AO ADM SS Comment on above: Performed By: #### C BC, ADIFF, ANEU, CMP, TSH, GFR #### [address] [address] Electrolyte Balance 9.0 mEq/L Normal AO AD M SS Comment on above: Performed By: #### C BC, ADIFF, ANEU, CMP, TSH, GFR #### [address] [address] Globulin 3.3 G/dL Normal AO ADM SS Comment on above: Performed By: #### C BC, ADIFF, ANEU, CMP, TSH, GFR #### [address] [address] Glucose [Mass/Vol] 207 mg/dL High 80-115 AO ADM SS Comment on above: Performed By: #### C BC, ADIFF, ANEU, CMP, TSH, GFR #### [address] [address] Potassium [Moles/Vol] 4.7 mmol/L Normal 3.5-5.1 AO ADM SS Comment on above: Performed By: #### C BC, ADIFF, ANEU, CMP, TSH, GFR #### [address] [address] Sodium [Moles/Vol] 142 mmol/L Normal 136-145 AO ADM SS Comment on above: Performed By: #### C BC, ADIFF, ANEU, CMP, TSH, GFR #### [address] [address] Urea nitrogen [Mass/Vol] 14 mg/dL Normal 7-18 AO ADM SS Comment on above: Performed By: #### C BC, ADIFF, ANEU, CMP, TSH, GFR #### [address] [address] LABORATORYOrdered By: Destini Jack on 02-01-2021 Albumin BCP dye [Mass/Vol] 3.6 G/dL Invalid Interpretation Code 3.4 - 4.8 G/dL AO ADM SS ALT With P-5'-P [Catalytic activity/Vol] 25 U/L Invalid Interpretation Code 14 - 59 U/L AO ADM SS AST With P-5'-P [Catalytic activity/Vol] 14 U/L Invalid Interpretation Code 10 - 40 U/L AO ADM SS Bilirubin [Mass/Vol] 0.5 mg/dL Invalid Interpretation Code 0.2 - 1.0 mg/dL AO ADM SS Hemoglobin (Bld) [Mass/Vol] 13.7 G/dL Invalid Interpretation Code 12.0 - 16.0 G/dL AO Auto Heme SS MCHC (RBC) [Mass/Vol] 33.4 G/dL Invalid Interpretation Code 33.0 - 37.0 G/dL AO Auto Heme SS Platelets (Bld) [#/Vol] 265 103/mcL Invalid Interpretation Code 130 - 400 10^3/mcL AO Auto Heme SS Protein [Mass/Vol] 6.9 G/dL Invalid Interpretation Code 6.4 - 8.2 G/dL AO ADM SS RBC (Bld) [#/Vol] 4.50 106/mcL Invalid Interpretation Code 4.20 - 5.40 10^6/mcL AO Auto Heme SS Urea nitrogen/Creatinine [Mass ratio] 17 ratio Invalid Interpretation Code 7 - 27 ratio AO ADM SS WBC (Bld) [#/Vol] 11.20 103/mcL Invalid Interpretation Code 4.60 - 10.80 10^3/mcL AO Auto Heme SS TSHOrdered By: Marcella mccallum on 02-01-2021 TSH Qn 1.35 m[IU]/L Normal 0.36-3.74 AO ADM SS Comment on above: Performed By: #### C BC, ADIFF, ANEU, CMP, TSH, GFR #### Lina [address]Allyson [facility] KIRILL ALMAZAN ([id number]) 1955 F Date Time Provider Department 06/15/20 ALVARO PUENTES During your visit today, we recorded the following information about you: Josefa Duenas [facility] 06/15/2020 2:[address] Michaud's office called to request that Cherie ESCAMILLA) speak with Dr. Puentes/Chika concerning the breast mri denial and the treatment for the patient going forward. Cherie can be reached at [phone]. Thanks Allergies As of Date: 06/15/2020 Noted Allergy Reaction DEMEROL (MEPERIDINE (PF)) 12/01/2007 11 - Vomiting Date Reviewed: 09/21/2009 Reviewed by: Ana Herrera Ma - Reviewed Reason for Visit: Patient Update [1234] Prescriptions as of 06/15/2020 Sig: * VITAMIN D3 25 MCG (1,000 UNIT* Take one(1) tablet daily. * ATENOLOL 50 MG TABLET Take one(1) tablet daily. * LOTREL 10 MG-20 MG CAPSULE Take one(1) tablet daily. * PAROXETINE 10 MG TABLET Take one(1) tablet daily. * ACTOS 45 MG TABLET Take one(1) tablet daily. * MULTIVITAMIN TABLET Take one(1) tablet daily. Problem List As Of Date 06/15/2020 Noted Resolved ABDOMINAL PAIN LUQ [R10.12] Abnormal Mammogram, Unspecified [R92.8] 09/21/2009 Encounter Status:[facility] 05-26-2020 CNPN Telephone (RADMN) ---- KIRILL ALMAZAN ([id number]) 1955 F Date Time Provider Department 05/26/20 FIORELLA CABRERA (RN) RADMN During your visit today, we recorded the following information about you: Allergies As of Date: 05/26/2020 Noted Allergy Reaction DEMEROL (MEPERIDINE (PF)) 12/01/2007 11 - Vomiting Date Reviewed: 09/21/2009 Reviewed by: Ana Herrera Ma - Reviewed Reason for Visit: Results [95] Prescriptions as of 05/26/2020 Sig: * VITAMIN D3 25 MCG (1,000 UNIT* Take one(1) tablet daily. * ATENOLOL 50 MG TABLET Take one(1) tablet daily. * LOTREL 10 MG-20 MG CAPSULE Take one(1) tablet daily. * PAROXETINE 10 MG TABLET Take one(1) tablet daily. * ACTOS 45 MG TABLET Take one(1) tablet daily. * MULTIVITAMIN TABLET Take one(1) tablet daily. Problem List As Of Date 05/26/2020 Noted Resolved ABDOMINAL PAIN LUQ [R10.12] Abnormal Mammogram, Unspecified [R92.8] 09/21/2009 Encounter Status:Closed by FIORELLA CABRERA on 05/26/20 Normal [facility] STEREO BX BREAST RTon [facility] STEREO BX BREAST RT * * *Final Report* * * * * * SEE BOTTOM OF REPORT FOR ADDENDED TEXT * * * DATE OF EXAM: May 20 2020 1:56PM [facility] 0631 - [facility] STEREO BX BREAST RT / PROCEDURE REASON: Abnormal finding on breast imaging * * * * Physician Interpretation * * * * RESULT: FINAL REPORT #[id number] - [facility] STEREO BX BREAST RT STEREOTACTIC GUIDED BIOPSY RIGHT BREAST USING VACUUM DEVICE WITH MARKING DEVICE INSERTED AND POST DIGITAL MAMMOGRAPHIC IMAGIN05/20/2020 HISTORY: Abnormal Finding On Breast Imaging The patient presents for right stereotactic vacuum assisted needle biopsy as recommended from recent imaging study dated 02/25/20. Pre and post fire hard copy mammographic images were obtained. Right breast architectural distortion 6:00, MINICORK clip. PATIENT CONSENT: A time out was performed immediately prior to procedure start with the radiology team, correctly identifying the patient name, date of , procedure, anatomy (including marking of site and side), patient position, relevant diagnostic and radiology test results, safety precautions, and procedure-specific equipment needs. The procedure was explained to the patient including the risks, benefits and alternatives. Medications and allergies were also reviewed. The risks, including but not limited to infection and bleeding, were reviewed by the performing physician and the patient agreed to undergo the procedure. The radiologist and technologist were present throughout the entire procedure. Time out: 1325 Procedure start: 1326 Procedure end: 1335 . Correlation is made to exam dated: 02/25/2020 mammogram - [facility]. A stereotactic guided biopsy was performed for the concerning area of architectural distortion located in the right breast lower inner aspect middle depth. This was described on the previous mammography report. The skin was prepped in the usual manner. Local anesthetic was administered to the access site. A skin rene was made in the breast. The abnormality was approached from the caudocranial aspect using a prone table. A 12 gauge biopsy needle was placed adjacent to the abnormality under computer guidance and confirmatory stereotactic mammography images were obtained to document needle placement. Once the needle was documented to be in the correct location, twelve cores were obtained using the Ku system. A mini-cork clip was inserted into the biopsy cavity. A skin adhesive, a skin closure strip, and a sterile dressing were applied to the access site. Post procedure digital mammographic imaging demonstrates the location device at the targeted area. The specimens were sent to the laboratory for pathological analysis. IMPRESSION: STEREOTACTIC GUIDED BIOPSY HIGH RISK BENIGN Stereotactic guided biopsy of the area of architectural distortion in the right breast lower inner aspect middle depth was successful with no apparent post procedure complications. Pathology indicates high risk benign radial sclerosing lesion (RS) and atypical ductal hyperplasia (ADH). Pathology results are concordant with mammography findings. 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 - Florid ductal hyperplasia. The patient will be notified of the pathology results by phone. Surgical consultation is recommended. Breast Imaging Nurse Navigator will assist the patient with scheduling her surgical appointment. Miri mckay/hiro:05/25/2020 15:41:25 Information Systems Security Officer(s): RT Elisa(R)(M), The [facility] [place] Multiple national specialty organizations have released breast cancer screening guidelines for women at average risk for developing breast cancer - guidelines that are based on both evidence and opinion, yet differ on when to start and how often to screen for breast cancer. With representation from Breast Imaging, Internal Medicine, Women's Health, Family Medicine, and Medical/Surgical Oncology, the [facility] has carefully reviewed the data and reached the following consensus: 1) All women should engage in shared decision-making with their providers to decide when to start and how often to screen; 2) All women should have the opportunity to start screening mammography at age 40; 3) For women ages 45-55, we recommend annual screening mammograms; 4) For women ages 55 and over, we support both the transition from an annual to a biennial interval if this aligns more with patient's values and preferences, or continuation with annual screening; 5) All women should discuss with their providers when to stop screening mammograms. Health And Safety Technician: Hiro Transcribe Date/Time: May 20 2020 12:50P Dictated by : MIRI DUKE MD This examination was interpreted and the report reviewed and (more content not included)... Normal [facility] SURGICAL PATHOLOGYon 021 SURGICAL PATHOLOGY Specimen originated from [facility] Specimen #: [id number] Submitting Physician: MIRI DUKE M.D. 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 PJM/edward 05/24/2020 COMMENT The case was reviewed in consultation with Dr. Carlos Schneider, of the [facility] breast pathology department, who concurs. Feliz Boyd M.D. (Electronic Signature) SPECIMEN SUBMITTED A: RIGHT BREAST STEREO/CHRIS BIOPSY FOR ARCHITECTURAL DISTORTION WITH CLIP PLACEMENT, MINICORK CLIP CLINICAL DATA RIGHT BREAST 6:00; R/O BREAST CA VS RADIAL SCAR GROSS DESCRIPTION A. Received in formalin labeled as Right breast are multiple segments of cylindrical tissue aggregating to 4.5 x 1.7 x 0.2 cm, yellow and of a soft consistency. The specimen is removed from the patient at 13:34 on 05/20/2020. The specimen was placed in formalin at 13:36 on 05/20/2020. Totally submitted in formalin in two cassettes. Fixative type: 10% neutral buffered formalin Length of fixation: 26 hours and 12 minutes Cold ischemia time: 2 minute(s) Gross examination performed at [facility], [address] [place], [place] [id number] VY 05/20/2020 5:36:55 PM Date of Report: 05/25/2020 Date of Procedure: 05/20/2020 Date of Receipt: 05/20/2020 Submitted by: MIRI DUKE M.D. ([id number]) Location: A10 Diagnostic interpretation performed at [facility], [address] [place] [address]. [place] Number: [id number] Normal [facility] DIAGNOSTIC RTon 05-04-19 21 [facility] DIAGNOSTIC RT * * *Final Report* * * DATE OF EXAM: May 04 2020 1:05PM SAVANNAHW 0626 - [facility] DIAGNOSTIC RT / PROCEDURE REASON: right diagnostic mammogram * * * * Physician Interpretation * * * * RESULT: #[id number] - [facility] DIAGNOSTIC RT UNILATERAL RIGHT DIGITAL DIAGNOSTIC MAMMOGRAM WITH CAD: 05/04/2020 HISTORY: Right Diagnostic Mammogram / Call back/abnormal mamm: Right. RESULT: TECHNIQUE: The study was acquired using full field digital technology and interpreted from soft copy. Current study was also evaluated with a Computer Aided Detection (CAD). Comparison is made to exams dated: 02/25/2020 mammogram, 02/06/2019 mammogram, 01/03/2018 mammogram, and 01/02/2017 mammogram - [facility]. There are scattered fibroglandular elements in right breast. There is a 2 cm asymmetry with an indistinct margin in the right breast at 7 o'clock middle depth. There is architectural distortion associated with the asymmetry. No other significant masses or calcifications are seen in the breast. IMPRESSION: SUSPICIOUS FINDING - BIOPSY SHOULD BE CONSIDERED The 2 cm asymmetry in the right breast is suspicious of malignancy. A stereotactic biopsy is recommended. This is best seen on the tomosynthesis images. This may be slightly more prominent compared to prior exams. No corresponding finding by ultrasound. Stereotactic biopsy is recommended. This could either be done by tomosynthesis or stereotactic means (depending on equipment available). This is visible on ML and MLO chris and 2D images and only well visualized on the CC images with tomosynthesis. Approach could be made either from lateral or inferior based on equipment available. The patient will be referred to the appropriate location. Shahab osulliavn/hiro: 14:52:00 copy to: PUSHPA AMBER, ph: [phone] Information Systems Security Officer(s): Yesenia Brown, RT(R)(M), [facility] Mammogram BI-RADS: 4 Suspicious finding - Biopsy should be considered Multiple national specialty organizations have released breast cancer screening guidelines for women at average risk for developing breast cancer - guidelines that are based on both evidence and opinion, yet differ on when to start and how often to screen for breast cancer. With representation from Breast Imaging, Internal Medicine, Women's Health, Family Medicine, and Medical/Surgical Oncology, the [facility] has carefully reviewed the data and reached the following consensus: 1) All women should engage in shared decision-making with their providers to decide when to start and how often to screen; 2) All women should have the opportunity to start screening mammography at age 40; 3) For women ages 45-55, we recommend annual screening mammograms; 4) For women ages 55 and over, we support both the transition from an annual to a biennial interval if this aligns more with patient's values and preferences, or continuation with annual screening; 5) All women should discuss with their providers when to stop screening mammograms. Health And Safety Technician: Hiro Transcribe Date/Time: May 04 2020 12:54P Dictated by: SHAHAB ANDERSEN MD This examination was interpreted and the report reviewed and electronically signed by: SHAHAB ANDERSEN MD on May 04 2020 2:52PM EST [id number] Normal [facility] [employer] BREAST LTD RTon 05-04 [facility] [employer] RT * * *Final Report* * * DATE OF EXAM: May 04 2020 1:41PM WRU [id number] - [facility] US BREAST LTD RT / PROCEDURE REASON: right diagnostic mammogram * * * * Physician Interpretation * * * * #[id number] - [facility] [employer] BRE[employer] RT LIMITED ULTRASOUND OF RIGHT BREAST: 05/04/2020 HISTORY: Right Diagnostic Mammogram. RESULT: Comparison is made to exams dated: 05/04/2020 mammogram, 02/25/2020 mammogram, 02/06/2019 mammogram, 01/03/2018 mammogram, 01/02/2017 ultrasound, and 01/02/2017 mammogram - [facility]. Color flow and real-time ultrasound of the right breast lower outer quadrant were performed. Palacios scale images of the real-time examination were reviewed. IMPRESSION: NEGATIVE There is no sonographic evidence of malignancy. There is no abnormality seen in the right breast to correspond with the mammographic density in the lower outer quadrant, however, biopsy is recommended. SUMMARY: Tomosynthesis guided biopsy is recommended. Shahab osullivan/hiro: 14:58:20 copy to: PUSHPA CLARK, ph: [phone] Information Systems Security Officer(s): Sal Whyte, [facility] Ultrasound BI-RADS: 1 Negative Multiple national specialty organizations have released breast cancer screening guidelines for women at average risk for developing breast cancer - guidelines that are based on both evidence and opinion, yet differ on when to start and how often to screen for breast cancer. With representation from Breast Imaging, Internal Medicine, Women's Health, Family Medicine, and Medical/Surgical Oncology, the [facility] has carefully reviewed the data and reached the following consensus: 1) All women should engage in shared decision-making with their providers to decide when to start and how often to screen; 2) All women should have the opportunity to start screening mammography at age 40; 3) For women ages 45-55, we recommend annual screening mammograms; 4) For women ages 55 and over, we support both the transition from an annual to a biennial interval if this aligns more with patient's values and preferences, or continuation with annual screening; 5) All women should discuss with their providers when to stop screening mammograms. Health And Safety Technician: Hiro Transcribe Date/Time: May 04 2020 1:28P Dictated by : SHAHAB ANDERSEN MD This examination was interpreted and the report reviewed and electronically signed by: SHAHAB ANDERSEN MD on May 04 2020 2:58PM EST [id number] Normal [facility] CNPNon 04-22-2020 CNPN Telephone (RADMN) ---- KIRILL ALMAZAN ([id number]) 1955 F Date Time Provider Department 04/22/20 LUCRETIA BABCOCK) RADMN During your visit today, we recorded the following information about you: Parag Iglesias 04/22/2020 8:43 AM Signed return call to patient [phone] Parag Iglesias 04/22/2020 8:50 AM Signed patient called- appointment made in [facility] for callback mammogram Allergies As of Date: 04/22/2020 Noted Allergy Reaction DEMEROL (MEPERIDINE (PF)) 12/01/2007 11 - Vomiting Date Reviewed: 09/21/2009 Reviewed by: Ana Herrera Ma - Reviewed Reason for Visit: Mammogram Result Call Back [[id number]] Prescriptions as of 04/22/2020 Sig: * VITAMIN D3 25 MCG (1,000 UNIT* Take one(1) tablet daily. * ATENOLOL 50 MG TABLET Take one(1) tablet daily. * LOTREL 10 MG-20 MG CAPSULE Take one(1) tablet daily. * PAROXETINE 10 MG TABLET Take one(1) tablet daily. * ACTOS 45 MG TABLET Take one(1) tablet daily. * MULTIVITAMIN TABLET Take one(1) tablet daily. Problem List As Of Date 04/22/2020 Noted Resolved ABDOMINAL PAIN LUQ [R10.12] Abnormal Mammogram, Unspecified [R92.8] 09/21/2009 Encounter Status:Closed by PARAG IGLESIAS on 04/22/20 [facility] Encounters Encounter Date Encounter Type Care Provider Facility Start: 02-01-2021 End: 02-05-2021 Outreach Lab PUSHPA CLARK MD [facility] Start: 02-01-2021 End: 02-01-2021 Patient encounter procedure PUSHPA CLARK MD [facility] Procedures Date Procedure Procedure Detail Performing Clinician Start: 03-11-2020 Lumpectomy of right breast PUSHPA CLARK MD Start: 03-11-2020 Sebaceous cyst (morphologic abnormality) PUSHPA CLARK MD Start: 01-03-2018 Screening mammography A NASEEM CLARK MD Comment on above: BI-Rads 1; Dr. Mikhail engel; [facility] Start: 02-23-2008 Colonoscopy PUSHPA STEVEN MD Comment on above: Dr. Boateng; [facility] [place] [address] Start: 2007 Arthroscopy of knee AND REW AMBER ESTES Comment on above: Right knee with part ial medial meniscectomy; Dr. Lopez AO Breast biopsy and re lated procedures PUSHPA CLARK MD Comment on above: Right Cyst (disorder) PUHSPA MCCRACKEN MD Comment on above: left breast Ligation of fallopian tube A NASEEM CLARK MD Immunizations Immunization Date Immunization Notes Care Provider [facility] 12-08-2019 influenza virus vaccine, unspecified formulation PUSHPA CLARK MD [facility] Comment on above: Result Comment: [facility] 01-14-2019 influenza, injectabl e, quadrivalent, preservative free; Translations: [Fluarix PF Quadrivalent ] PUSHPA CLARK MD [facility] 12-08-2018 influenza virus vaccine, unspecified formulation PUSHPA CLARK MD [facility] 12-02-2018 influenza virus vaccine, unspecified formulation PUSHPA CLARK MD [facility] Social History Date Type Detail Facility Start: 01-14-2019 Never smoked t obacco (finding) [facility] Comment on above: no tobacco smoke exp osure Sex Assigned At Female [facility] Evaluation + Plan note 02-01-2021 LaboratoryRadiology Note Date & Type Note Facility 02-01-2021 Evaluation + Plan note Future Scheduled TestsPathology [employer] Request 02/01/21US Breast Right Complete 05/06/20[facility] Mammo Diagnostic Right w/ Chris 05/16/20[facility] Mammo Screening Bilateral w/ Chris 02/01/21 [facility] Progress note 05-20-2020 Note Date & Type Note Facility 05-20-2020 Note HNO ID: [id number] Author: Monica Pérez (Tech) Service: ? Author Type: Manager Medical Affairs Type: Progress Notes Filed: 05/20/2020 2:27 PM [...] present:Clip and Imaging Data Staff involved: Surendra Duke MD Relevant documentation, images, implants or special [...] Time Out: N/A Sign Out Discussion: Completed [facility] Progress note 05-20-2020 Note Date & Type Note Facility 05-20-2020 Note HNO ID: [id number] Author: Monica Pérez (Tech) Service: ? Author Type: Manager Medical Affairs Type: Progress Notes Filed: 05/20/2020 2:23 PM [...] Monica Pérez May 20, 2020 2:22 PM [facility] Progress note 05-20-2020 Note Date & Type Note Facility 05-20-2020 Note HNO ID: [id number] Author: Monica Pérez (Tech) Service: ? Author Type: Manager Medical Affairs Type: Progress Notes Filed: 05/20/2020 2:25 PM [...] SUPPLEMENTAL MATERIAL: Homegoing instructions REFERRAL (RECOMMENDATION): None [facility] Progress note 05-05-2020 Note Date & Type Note Facility 05-05-2020 Note HNO ID: [id number] Author: Carmelina Monroe Service: ? Author Type: Physician Type: Progress Notes Filed: 05/05/2020 9:23 AM Note Text: Reviewed mammogram from 05/04/[address] Andersen. Agree with RIGHT tomosynthesis guided biopsy for distortion seen best on screening tomosynthesis views. Chika Hill RN will schedule the patient. [facility] Progress note 05-04-2020 Note Date & Type Note Facility 05-04-2020 Note HNO ID: [id number] Author: Sal Whyte Service: ? Author Type: Assessment Manager Type: Progress Notes Filed: 05/04/2020 2:41 PM [...] IV DATA: Not applicable SIGNED BY: SAL WHYTE RDMS RVBandar May 04, 2020 2:41 PM [facility] course Narrative Note Date & Type Note Facility Hospital course Narrative No data available for this section [facility] Hospital Discharge instructions Note Date & Type Note Facility Hospital Discharge instructions No data available for this section [facility] Summary Purpose Family History No Family History Records FoundNo Family History Records Found Advance Directives No Advanced Directives Records FoundNo Advanced Directives Records Found Additional Source Comments INFORMATION SOURCE (unrecogn ized section and content) DATE CREATED AUTHOR 02/17/2021 [facility] ([place]) DATE CREATED AUTHOR AUTHOR'S RAMIREZ ATION 04/12/2021 [facility] FOR RECORDS PERTAINING TO PATIENTS WHO [...] BE BASED ON THE PRIMARY CLINICAL RECORDS. [facility] [employer] [facility]. provides no warranty or guarantee of the accuracy or completeness of information in this document.
[2024-01-14 12:03] LABS: Absolute Lymphocyte Count 2.67 X10^3/uL (0.83-4.51); Absolute Neutrophil Count 6.2 X10^3/uL (2.0-7.7); Basophil# 0.05 X10^3/uL; Basophil% 0.5 % (0-1); Eosinophil# 0.13 X10^3/uL; Eosinophils% 1.3 % (0-5); Hematocrit 38.4 % (37-47); Hemoglobin 11.6 g/dL (12.0-15.0); Lymphocyte # 2.67 X10^3/ul (0.83-4.51); Lymphocyte % 27.5 % (19-41); Mean Corp Hgb Conc 30.2 g/dL (32-36); Mean Corpuscular Hgb 27.6 pg (27.0-32.0); Mean Corpuscular Volume 91.2 fL (81-99); Mean Platelet Vol. 10.7 fl (6.2-12.0); Monocyte# 0.64 X10^3/uL; Monocyte% 6.6 % (0-10); NRBC Flagged by Analyzer 0 % (0-5); Neutrophil # 6.19 X10^3/uL (2.7-7.7); Neutrophil % 63.8 % (47-70); Platelet Count 432 K/mm3 (150-450); RBC Distribution Width CV 14.9 % (11.6-14.6); Red Blood Count 4.21 M/mm3 (4.2-5.4); White Blood Count 9.7 K/mm3 (4.4-11.0)
[2024-01-14 12:35] LABS: ALB/GLOB Ratio 0.5 RATIO (0.9-2.4); AST(SGOT) 8 U/L (15-37); Alanine Aminotransfer ALT/SGPT 12 U/L (13-56); Albumin, Serum 2.9 g/dL (3.2-5.0); Alkaline Phosphatase 87 U/L (45-117); Anion Gap 7 (5-15); BUN 16 mg/dL (7-18); BUN/Creat Ratio 16.4 RATIO (10-20); Calcium,Total 9.8 mg/dL (8.5-10.1); Chloride 100 mmol/L (98-107); Cholesterol 135 mg/dL (200); Creatinine, Serum 0.98 mg/dL (0.55-1.02); EST Glomerular Filtration Rate 60 mL/min (>60); Est Glom Filt Rate - Afr Amer 73 mL/min (>60); Globulin 5.3 g/dL (2.2-4.2); Glucose 161 mg/dL (74-106); High Density Lipoprotein 54 mg/dL; Protein, Total 8.2 g/dL (6.4-8.2); Sodium Level 135 mmol/L (136-145); T4 Free Direct 0.92 ng/dL (0.76-1.46); Triglycerides 88 mg/dL; Very Low Density Lipoprotein 18 mg/dL (5-40)
[2024-01-14 16:14] LABS: Vitamin D,25 Hydroxy 32.2 ng/mL
== END | disposition home or self-care (01) ==
LOC: BIMLAB 08:11
PROVIDERS: Internal Medicine Endocrinology, Diabetes & Metabolism; PCP Internal Medicine; Referring Provider Internal Medicine; Visit Provider Internal Medicine
DX: E78.2 Mixed hyperlipidemia (principal); E66.01 Morbid (severe) obesity due to excess calories; Z68.42 Body mass index [BMI] 45.0-49.9, adult; E11.9 Type 2 diabetes mellitus without complications; E55.9 Vitamin D deficiency, unspecified; I10 Essential (primary) hypertension
CPT/HCPCS: 36415; 80053; 80061; 82306; 84439; 84443; 85025

== ENCOUNTER → 2024-02-25 | Outpatient (CLI) | payer MEDICARE, SELFPAY ==
--- NOTE | 2024-02-25 10:58 | BD_ITS ---
STUDY: DUAL ENERGY X-RAY ABSORPTIOMETRY / DXA REASON FOR EXAM: Female, 68 years old. Screening, fall TECHNIQUE: Bone Mineral Density (BMD) measurements of lumbar spine and bilateral hips were obtained. COMPARISON: None. FINDINGS: Lumbar Spine (L1-L4): g/cm2 (0.981) / T-score (-0.6) / Z-score (1.4) Findings are suggestive of normal bone density with a low fracture risk. Left Femur Total: g/cm2 (0.847) / T-score (-0.8) / Z-score (0.6) Left Femoral Neck: g/cm2 (0.664) / T-score (-1.7) / Z-score (0.0) Right Femur Total: g/cm2 (0.814) / T-score (-1.0) / Z-score (0.3) Right Femoral Neck: g/cm2 (0.704) / T-score (-1.3) / Z-score (0.4) BD/Dexa Bone Density Study IMPRESSION: The patient is considered osteopenic as outlined below according to World Matt Organization (WHO) criteria with a moderate fracture risk. Reference Information: The T-score is the number of standard deviations above or below the standard which is normal for young adults at their peak bone mineral density. The World Health Organization (WHO) interprets the T-scores as follows: Above -1 Normal bone density Between -1 and -2.5 Osteopenia Equal to / or below -2.5 Osteoporosis As a practical clinical guideline, osteopenia may be graded as follows: Mild -1 through -1.5 Moderate -1.6 through -2.0 Severe -2.1 through -2.4 The Z-score is the number of standard deviations above or below age-matched controls. A Z-score of less than -1.5 would be considered abnormal. References: 1. NIH Osteoporosis and Related Bone Diseases www osteo.org 2. International Society for Clinical Densitometry www iscd.org 3. National Osteoporosis Foundation www nof.org Electronically Signed: Juanito Willoughby MD at 8:33 EST ,
== END | disposition home or self-care (01) ==
LOC: OPBD 10:50
PROVIDERS: PCP Internal Medicine; Referring Provider Internal Medicine Endocrinology, Diabetes & Metabolism; Visit Provider Internal Medicine Endocrinology, Diabetes & Metabolism
DX: M85.88 Other specified disorders of bone density and structure, other site (principal)
CPT/HCPCS: 77080

== ENCOUNTER → 2024-08-05 | Outpatient (CLI) | payer MEDICARE, SELFPAY ==
[2024-08-05 12:35] LABS: Absolute Lymphocyte Count 2.45 X10^3/uL (0.83-4.51); Absolute Neutrophil Count 6.8 X10^3/uL (2.0-7.7); Basophil# 0.04 X10^3/uL; Basophil% 0.4 % (0-1); Hematocrit 34.3 % (37-47); Hemoglobin 10.3 g/dL (12.0-15.0); Lymphocyte # 2.45 X10^3/ul (0.83-4.51); Lymphocyte % 23.8 % (19-41); Mean Corpuscular Hgb 26.3 pg (27.0-32.0); Mean Corpuscular Volume 87.7 fL (81-99); Mean Platelet Vol. 10.6 fl (6.2-12.0); Monocyte# 0.87 X10^3/uL; Monocyte% 8.4 % (0-10); NRBC Flagged by Analyzer 0 % (0-5); Neutrophil # 6.81 X10^3/uL (2.7-7.7); Neutrophil % 66.1 % (47-70); Platelet Count 489 K/mm3 (150-450); RBC Distribution Width CV 15.8 % (11.6-14.6); RBC Distribution Width SD 50.5 fl (35.1-43.9); Red Blood Count 3.91 M/mm3 (4.2-5.4); White Blood Count 10.3 K/mm3 (4.4-11.0)
[2024-08-05 12:55] LABS: Anion Gap 12 (5-15); BUN 16 mg/dL (4-19); BUN/Creat Ratio 18.5 RATIO (10-20); Calcium,Total 9.7 mg/dL (7.6-11.0); Carbon Dioxide 27.2 mmol/L (21.0-32.0); Chloride 99 mmol/L (98-108); Creatinine, Serum 0.86 mg/dL (0.70-1.20); EST Glomerular Filtration Rate 74 (>60); Glucose 139 mg/dL (70-99); Potassium 3.9 mmol/L (3.3-5.1); Sodium Level 139 mmol/L (133-145)
[2024-08-05 13:01] LABS: Microalbumin,Random Urine 50.7 mg/L (NO RANGE EST.); Microalbumin:Creatinine Ratio 307.3 mg/g CRE
[2024-08-06 12:29] LABS: Ferritin 826 ng/mL (22-378); Iron 23 ug/dL (50-170); Iron Binding Capacity,Unsat 183 ug/dL (228-428)
[2024-08-06 15:55] LABS: Iron Binding Capacity,Total 206 ug/dL (250-450)
== END | disposition home or self-care (01) ==
LOC: BIMLAB 10:43
PROVIDERS: Internal Medicine Endocrinology, Diabetes & Metabolism; PCP Internal Medicine; Referring Provider Internal Medicine; Visit Provider Internal Medicine
DX: I10 Essential (primary) hypertension (principal); D64.9 Anemia, unspecified
CPT/HCPCS: 36415; 80048; 82043; 82570; 82728; 83540; 83550; 85025

== ENCOUNTER → 2024-08-10 | Outpatient (CLI) | payer MEDICARE, SELFPAY | END | disposition home or self-care (01) | LOC: MTLAB 10:28 | PROVIDERS: PCP Internal Medicine; Referring Provider Internal Medicine; Visit Provider Internal Medicine | DX: D64.9 Anemia, unspecified (principal) | CPT/HCPCS: 82274 ==

== ENCOUNTER → 2024-09-09 | Outpatient (CLI) | payer MEDICARE, SELFPAY ==
[2024-09-09 10:31] LABS: Hematocrit 33.7 % (37-47); Hemoglobin 10.1 g/dL (12.0-15.0); Immature Granulocytes Count 0.040 X10^3/uL (0.0-0.0); Mean Corp Hgb Conc 30.0 g/dL (32-36); Mean Corpuscular Volume 85.3 fL (81-99); Mean Platelet Vol. 10.2 fl (6.2-12.0); NRBC Flagged by Analyzer 0 % (0-5); Platelet Count 492 K/mm3 (150-450); RBC Distribution Width CV 16.0 % (11.6-14.6); RBC Distribution Width SD 50.0 fl (35.1-43.9); Red Blood Count 3.95 M/mm3 (4.2-5.4); White Blood Count 10.1 K/mm3 (4.4-11.0)
== END | disposition home or self-care (01) ==
LOC: LAB 10:05
PROVIDERS: PCP Internal Medicine; Referring Provider Internal Medicine; Visit Provider Internal Medicine
DX: D64.9 Anemia, unspecified (principal)
CPT/HCPCS: 36415; 85025

== ENCOUNTER → 2024-09-25 | Outpatient (CLI) | payer MEDICARE, SELFPAY ==
--- NOTE | 2024-09-25 12:45 | BI_ITS ---
EXAM: SCRN MAMM (CAD)W/EDGARD BILAT DATE: 09/25/2024 CLINICAL HISTORY: F, Age 69 y/o , SCREENING TECHNIQUE: SCRN MAMM (CAD)W/EDGARD BILAT COMPARISON: Prior exam(s) dated 05/22/2023, 04/23/2022, 02/22/2021. FINDINGS: TISSUE DENSITY: There are scattered areas of fibroglandular density. Bilateral Breast Mammographic Findings: No significant masses, calcifications or other abnormalities are identified. BI/SCRN MAMM (CAD)W/EDGARD BILAT IMPRESSION: There is no mammographic evidence of malignancy. OVERALL FINAL ASSESSMENT BI-RADS 1: NEGATIVE. RECOMMENDATION: Routine annual follow-up in 1 Year A letter with findings and recommendations will be mailed to the patient. Reading Location: [id number]
== END | disposition home or self-care (01) ==
LOC: OPBI 12:38
PROVIDERS: PCP Internal Medicine; Referring Provider Internal Medicine Endocrinology, Diabetes & Metabolism; Visit Provider Internal Medicine Endocrinology, Diabetes & Metabolism
DX: Z12.31 Encounter for screening mammogram for malignant neoplasm of breast (principal)
CPT/HCPCS: 77063; 77067

== ENCOUNTER 2024-12-24 07:36 | Outpatient (CLI) | payer MEDICARE, SELFPAY ==
--- NOTE | 2024-12-24 07:40 | US_ITS ---
PROCEDURE: ABD LIMITED W/ ELASTOGRAPHY REASON FOR EXAM: HIGH FERRITIN LEVELS COMPARISON: None. TECHNIQUE: Procedure Code: [id number] Modality: US Procedure: ABD LIMITED W/ ELASTOGRAPHY Right upper quadrant abdominal ultrasound. [facility] Elast[employer] [facility] shear wave elastography for non-invasive assessment of liver tissue stiffness. [employer] EPIQ Elite. FINDINGS: LIVER: Size: Enlarged (hepatomegaly) Length: 18.3 cm Echotexture: Diffusely echogenic suggesting fatty infiltration Contour: Normal Lesions: None identified Elastography: EQI Med: 5.2 kPa EQI Med Cecilio: 1.3 m/s IQR/Med: 8.3 %* GALLBLADDER: Normal COMMON BILE DUCT: Normal measuring 3.5 mm . PANCREAS: Visualized portions are sonographically unremarkable. There is an 8.1 cm 8.8 cm 7.2 cm heterogeneous mass in the midpole of the right kidney. There is also evidence of a 4 cm x 3.8 cm 4.2 cm cyst in the upper pole. US/ABD Limited w/ Elastography IMPRESSION: NO TO MILD HEPATIC FIBROSIS Hepatomegaly. 8.1 cm 8.8 cm 7.2 cm heterogeneous mass in the midpole of the right kidney. A neoplastic process should be ruled out. Correlation with CT scan recommended. Reference Values: SRU <1.37 m/s (5.7kPa): No to mild fibrosis 1.37 m/s - 2.2 m/s: Moderate to severe fibrosis >2.2 m/s (15kPa): Significant fibrosis / cirrhosis METAVIR Score F2 or higher: 1.34 m/s (5.7kPa) F3 or higher: 1.55 m/s (7.3kPa) F4: 1.80 m/s (10kPa) * If the IQR/Med is >30%, the variance in the measurements is a large and the a ccuracy of the measurement may be in question. Reading Location: [place] [id number]
--- OUTSIDE RECORDS SUMMARY | 2024-12-24 07:56 | XMS RPT_ITS | CCD ---
Author Organization [facility] CliniSyms Care Team Providers Care Real Estate Operations Manager Name Role Phone PUSHPA CLARK MD Primary Care Physician [phone] Dr. Pushpa Clark Primary Care Provider Dr. Pushpa Clark Referring Provider [phone] Dr. Steve Metz Attending Provider Dr. Maricarmen Tavares Attending Provider [phone] Dr. Maricarmen Tavares Primary Care Provider [phone]) Dr. Pushpa Clark Primary Care Provider Dr. Pushpa Clark Referring Provider [phone] Dr. Maricarmen Tavares Attending Provider [phone] Dr. Steve Metz Attending Provider [phone] Maricarmen Tavares Primary Care Provider [phone]) Dr. Maricarmen Tavares Referring Provider [phone] MICHAEL Limon Attending Provider [facility] Dr. Maricarmen Tavares Primary Care Provider [phone]) Dr. Maricarmen Tavares Attending Provider [phone] Dr. Adriel Burgos Attending Provider Dr. Kevin Gonzalez Referring Provider Dr. Steve Metz Attending Provider Belen IRIZARRY, HEAD HOST/HOSTESS-C Maximiliano Attending Provider [phone] Dr. Maricarmen Tavares Primary Care Provider [phone]) Dr. Maricarmen Tavares Referring Provider [phone] Dr. Steve Metz Attending Provider Dr. Maricarmen Tavares Attending Provider [phone] Chaitanya, Dr. Hernadez Primary Care Provider [phone]) Chaitanya, Dr. Hernadez Attending Provider [phone] Chaitanya, Dr. Hernadez Referring Provider [phone] Dr. Steve Metz Attending Provider Chaitanya, Dr. Hernadez Primary Care Provider [phone] 0) Chaitanya, Dr. Hernadez Referring Provider [phone] Chaitanya, Dr. Hernadez Attending Provider [phone] Dr. Adriel Burgos Attending Provider AMELIA Rahman Attending Provider Dr. Maricarmen Tavares Primary Care Provider [phone]) Chaitanya, Dr. Hernadez Referring Provider [phone] Dr. Steve Metz Attending Provider Chaitanya ESTES, Dr. Hernadez Primary Care Provider Chaitanya ESTES, Dr. Hernadez Attending Provider [phone]) Chaitanya ESTES, Dr. Hernadez Referring Provider 1(33 0) Dr. Steve Metz MD Attending Provider Chaitanya ESTES, Dr. Hernadez Primary Care Provider Chaitanya ESTES, Dr. Hernadez Referring Provider [phone] 0) Chaitanya ESTES, Dr. Hernadez Attending Provider [phone] 0) Chaitanya ESTES, Dr. Hernadez Primary Care Provider Chaitanya ESTES, Dr. Hernadez Referring Provider [phone]) Dr. Steve Metz MD Attending Provider Elliott ESTES, Dr. Briones Attending Provider Elliott ESTES, Dr. Briones Referring Provider King MEERA, Dr. Wilson Referring Provider Elliott ESTES, Dr. Briones Referring Provider Chaitanya ESTES, Dr. Hernadez Primary Care Physician Chaitanya ESTES, Dr. Hernadez Referring Provider King MEERA, Dr. Wilson Attending Physician Chaitanya ESTES, Dr. Hernadez Attending Physician Elliott ESTES, Dr. Briones Attending Physician Elliott ESTES, Dr. Briones Referring Provider Oleghe, Efewongbe Primary Care Unavailable Anselmo Gallagher Attending Unavailable Anselmo Gallagher Referring Unavailable Oleghe, Efewongbe Referring Unavailable Oleghe, Efewongbe Primary Care Unavailable Oleghe, Efewongbe Attending Unavailable Oleghe, Efewongbe Referring Unavailable Oleghe, Efewongbe Primary Care Unavailable Steve Metz Attending Unavailable Oleghe, Efewongbe Primary Care Unavailable Steve Metz Attending Unavailable Oleghe, Efewongbe Referring Unavailable Oleghe, Efewongbe Referring Unavailable Tyler Pagan Attending Unavailable Oleghe, Efewongbe Primary Care Unavailable Oleghe, Efewongbe Primary Care Unavailable Oleghe, Efewongbe Referring Unavailable Steve Metz Attending Unavailable Oleghe, Efewongbe Primary Care Unavailable Oleghe, Efewongbe Referring Unavailable Anselmo Gallagher Attending Unavailable Oleghe, Efewongbe Primary Care Unavailable Oleghe, Efewongbe Referring Unavailable Oleghe, Efewongbe Attending Unavailable Oleghe, Efewongbe Primary Care Unavailable Oleghe, Efewongbe Referring Unavailable Anselmo Gallagher Attending Unavailable Oleghe, Efewongbe Primary Care Unavailable Anselmo Gallagher Attending Unavailable Oleghe, Efewongbe Referring Unavailable Oleghe, Efewongbe Referring Unavailable Oleghe, Efewongbe Attending Unavailable Oleghe, Efewongbe Primary Care Unavailable Oleghe, Efewongbe Attending Unavailable Oleghe, Efewongbe Primary Care Unavailable Oleghe, Efewongbe Referring Unavailable Oleghe, Efewongbe Primary Care Unavailable Oleghe, Efewongbe Referring Unavailable Oleghe, Efewongbe Attending Unavailable Isaías, Steve Referring Unavailable Isaías, Steve Attending Unavailable Oleghe, Efewongbe Primary Care Unavailable Oleghe, Efewongbe Primary Care Unavailable Oleghe, Efewongbe Referring Unavailable Oleghe, Efewongbe Attending Unavailable Oleghe, Efewongbe Primary Care Unavailable Oleghe, Efewongbe Referring Unavailable Oleghe, Efewongbe Attending Unavailable Oleghe, Efewongbe Primary Care Unavailable Prah, Anselmo Referring Unavailable Prah, Anselmo Attending Unavailable Oleghe, Efewongbe Primary Care Unavailable Isaías, Steve Referring Unavailable Isaías, Steve Attending Unavailable Allergies Allergy Classification Reported Allergen(s) Allergy Type Date of Onset Reaction(s) Facility (2 sources) Adhesive Tape Drug allergy [facility] (20 sources) Meperidine; Translations: [meperidine] Drug Allergy 2 Unknown, Vomiting [facility] (3 sources) bandaid Allergy to substance 2 Other [facility] Work Phone: (20 sources) Adhesive agent; Translations: [adhesive] Allergy to substance 2 NEEDS FOLLOW-UP, [facility] Comment on above: from bandaid (1 source) Meperidine Drug Allergy 5 [facility] Repository Medications Current Medications Medication Drug Class(es) Dates Sig (Normalized) Sig (Original) azithromycin 250 mg oral tablet (2 sources) Macrolide Antimicrobial Start: 02-01-2021 End: 02-06-2021 Zithromax 250 mg oral tablet Dose : 250 mg = 1 tab(s), Oral, qDay, follow directions on Z-Errol, X 5 day(s), # 6 tab(s), 0 Refill(s), 02/06/21 9:34:00 EST, Pharmacy: [id number], 157, cm, 02/01/21 7:52:00 EST, Height, 109.2, kg, 02/01/21 7:52:00 EST, Dosing Weight Start Date: 02/01/21 Stop Date: 02/06/21 Status: Ordered Betamethasone / Clotrimazole (2 sources) Azole Antifungal, Corticosteroid Start: 02-01-2021 Lotrisone 1%-0.05% topical cream Apply 1 deshawn, Topical, BID, # 15 gram(s), 1 Refill(s), Pharmacy: [id number], Cream, 157, cm, 02/01/21 7:52:00 EST, Height, 109.2, kg, 02/01/21 7:52:00 EST, Dosing Weight Start Date: 02/01/21 Status: Ordered biotin 1 mg oral capsule (17 sources) Start: 09-08-2024 take 1 capsule by mouth once daily Biotin 1 mg capsule Active 1 mg PO daily September 08, 2024 12:00am Complies with drug therapy Start: 01-20-2024 End: 08-05-2024 take 1 capsule by mouth once daily Biotin 1 mg capsule Discontinued 1 mg PO daily January 20, 2024 1:00am August 05, 2024 10:13am Blood-Glucose Sensor (Freest yle Azucena 3 Sensor) device (20 sources) Start: 01-20-2024 Blood-Glucose Sensor (Freestyle Azucena 3 Sensor) device Active 0 .Route 2 January 20, 2024 3:13pm As directed Start: 01-20-2024 Blood-Glucose Sensor (Freestyle Azucena 3 Sensor) device Active 0 .Route January 20, 2024 3:13pm As directed Start: 10-29-2022 End: 01-20-2024 Blood-Glucose Sensor (Freest yle Azucena 3 Sensor) device Discontinued 0 .Route 2 October 29, 2022 12:44pm January 20, 2024 3:15pm As directed Start: 10-29-2022 End: 01-20-2024 Blood-Glucose Sensor (Freest yle Azucena 3 Sensor) device Discontinued 0 .Route October 29, 2022 12:44pm January 20, 2024 3:15pm As directed Start: 10-29-2022 Blood-Glucose Sensor (Freestyle Azucena 3 Sensor) device Active 0 .Route 2 October 29, 2022 12:44pm As directed Start: 10-29-2022 Blood-Glucose Sensor (Freestyle Azucena 3 Sensor) device Active 0 .Route 2 October 29, 2022 11:44am As directed Start: 03-27-2022 End: 10-29-2022 Blood-Glucose Sensor (Freest yle Azucena 3 Sensor) device Discontinued 0 .Route 2 March 27, 2022 1:00am October 29, 2022 12:44pm As directed Start: 03-27-2022 End: 10-29-2022 Blood-Glucose Sensor (Freest yle Azucena 3 Sensor) device Discontinued 0 .Route 2 March 27, 2022 1:00am October 29, 2022 12:44pm As directed Start: 03-27-2022 End: 10-29-2022 Blood-Glucose Sensor (Freest yle Azucena 3 Sensor) device Discontinued 0 .Route 2 March 27, 2022 12:00am October 29, 2022 11:44am As directed Start: 03-27-2022 Blood-Glucose Sensor (Freestyle Azucena 3 Sensor) device Active 0 .Route 2 March 27, 2022 12:00am As directed cholecalciferol 0.025 mg oral capsule (17 sources) Vitamin D Start: 09-08-2024 take 1 capsule by mouth once daily Cholecalciferol (Vitamin D3) 25 mcg (1,000 unit) capsule Active 25 ug PO daily September 08, 2024 12:00am Complies with drug therapy Start: 10-21-2023 End: 08-05-2024 take 1 capsule by mouth once daily Cholecalciferol (Vitamin D3) 25 mcg (1,000 unit) capsule Discontinued 25 ug PO DAILY October 21, 2023 12:00am August 05, 2024 10:13am empagliflozin 25 mg oral tablet (20 sources) Sodium-Glucose Cotransporter 2 Inhibitor Start: 09-08-2024 take 1 tablet by mouth once daily Empagliflozin (Jardiance) 25 mg tablet Active 25 mg PO daily September 08, 2024 12:00am Complies with drug therapy Start: 02-09-2017 End: 12-31-2019 take 1 tablet by mouth once daily Empagliflozin (Jardiance) 25 mg tablet Discontinued 25 mg PO daily 07 02December 16, 2017 12:47pm March 18, 2018 4:34pm Type 2 diabetes mellitus with other circulatory complications 3 ml insulin lispro 100 unt/ml pen injector (20 sources) Insulin Analog Start: 01-20-2024 Insulin Lispro (Humalog Kwikpen Insulin) 100 unit/mL insulin pen Active 35 U SC THREE TIMES A DAY 96 3 January 20, 2024 3:14pm Diabetes mellitus Type 2 diabetes mellitus with hyperglycemia 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 Complies with drug therapy Start: 03-07-2023 End: 01-20-2024 Insulin Lispro (Humalog Kwik pen Insulin) 100 unit/mL insulin pen Discontinued 30 U SC THREE TIMES A DAY June 19, 2023 10:09am January 20, 2024 3:15pm Diabetes mellitus Type 2 diabetes mellitus with hyperglycemia [facility] (current) use of insulin 34U in AM- 30U lunch and PM Start: 06-05-2022 End: 03-07-2023 Insulin Lispro (Humalog Kwik pen Insulin) 100 unit/mL insulin pen Discontinued 22 U SC THREE TIMES A DAY 60 90 1 November 26, 2022 12:54pm March 07, 2023 10:59am Start: 03-27-2022 End: 06-05-2022 Insulin Lispro (Humalog Kwik pen Insulin) 100 unit/mL insulin pen Discontinued 22 U SC THREE TIMES A DAY March 27, 2022 4:47pm June 05, 2022 9:16am TAKE 20 UNITS AT BREAKFAST, LUNCH AND DINNER Start: 12-19-2021 End: 03-27-2022 Insulin Lispro (Humalog Kwik pen Insulin) 100 unit/mL insulin pen Discontinued 20 U SC THREE TIMES A DAY January 31, 2022 11:25am March 27, 2022 4:48pm TAKE 20 UNITS AT BREAKFAST, LUNCH AND DINNER Start: 09-18-2021 End: 12-19-2021 Insulin Lispro (Humalog Kwik pen Insulin) 100 unit/mL insulin pen Discontinued 12 U SC THREE TIMES A DAY 15 October 16, 2021 7:57am December 19, 2021 3:43pm Start: 08-22-2021 End: 09-18-2021 Insulin Lispro (Humalog Kwik pen Insulin) 100 unit/mL insulin pen Discontinued 8 U SC THREE TIMES A DAY 15 14 August 14th, 2022 12:00am September 18, 2021 4:03pm levocetirizine dihydrochloride 5 mg oral tablet (7 sources) Histamine-1 Receptor Antagonist Start: 09-08-2024 take 1 tablet by mouth once daily Levocetirizine (Xyzal) 5 mg tablet Active 5 mg PO daily September 08, 2024 12:00am Complies with drug therapy mecobalamin 1 mg chewable tablet (16 sources) Start: 09-08-2024 take 1 tablet by mouth once daily Mecobalamin (Vitamin B12) 1,000 mcg tablet,chewable Active 1000 ug PO daily September 08, 2024 12:00am Complies with drug therapy Start: 12-11-2023 End: 08-05-2024 Mecobalamin (Vitamin B12) 50 0 mcg tablet,chewable Discontinued ug PO December 11, 2023 12:00am August 05, 2024 10:14am Mis Medication (2 sources) Start: [place]14-[place] [facility] [place] sugar support 1 daily, 0 Refill(s) Start Date: 01/14/19 Status: Ordered [place]-3 1050 mg oral capsule (2 sources) Start: 01-14-2019 [place]-3 1050 m g oral capsule Dose : 1,050 mg = 1 cap(s), Oral, qDay, # 90 cap(s), 0 Refill(s) Start Date: 01/14/19 Status: Ordered polysaccharide iron complex 150 mg oral capsule (5 sources) Start: 09-15-2024 Polysaccharide Iron Complex (Ferrex 150) 150 mg iron capsule Active 150 mg PO ONCE 90 3 September 15, 2024 12:00am Complies with drug therapy psyllium 400 mg oral capsule (10 sources) Start: 10-21-2023 Psyllium Husk (Metamucil) 0.4 gram capsule Active 0.4 g PO DAILY October 21, 2023 12:00am Complies with drug therapy Super B Complex oral tablet (2 sources) [...] 0 Refill(s) Start Date: 10/21/18 Status: Ordered Completed/Discontinued Medications Medication Drug Class(es) Dates Sig (Normalized) Sig (Original) acetaminophen 500 mg oral tablet (20 sources) Start: 01-31-2022 End: 03-07-2023 take 1 tablet by mouth every six hours Acetaminophen (Tylenol Extra Strength) 500 mg tablet Discontinued 500 mg PO EVERY 6 HOURS July 03, 2022 8:05am March 07, 2023 10:20am Pain acetaminophen 325 mg / HYDROcodone bitartrate 5 mg oral tablet (20 sources) Opioid Agonist Start: 06-29-2020 End: 07-01-2020 Hydrocodone-Acetamin ophen 1 TABLET tablet Discontinued 1 - 2 {tbl} PO EVERY 4 HOURS NEEDED as needed for Pain Score 1-10/10 6 2 0 June 29, 2020 June 30, 2020 12:00am July 01, 2020 12:03am Postoperative pain Other acute postprocedural pain Start: 06-29-2020 End: 07-01-2020 take 1 tablet by mouth every four hours as needed Hydrocodone-Acetaminophen Discontinued 1 - 2 TABLET PO EVERY 4 HOURS NEEDED 6 2 June 29, 2020 July 01, 2020 12:03am amLODIPine 10 mg oral tablet (20 sources) Dihydropyridine Calcium Channel Jose Start: 06-19-2023 End: 10-06-2024 take 1 tablet by mouth once daily Amlodipine 10 mg tablet Discontinued 10 mg PO DAILY 90 1 April 15, 2024 10:23am October 06, 2024 10:02am Start: 05-13-2023 End: 06-19-2023 take 7.5 mg by mouth once daily Amlodipine 5 mg tablet Discontinued 7.5 mg PO DAILY 135 90 3 May 13, 2023 4:17pm June 19, 2023 10:31am Start: 05-13-2023 End: 06-19-2023 take 7.5 mg by mouth once daily Amlodipine Discontinue d 7.5 MG PO DAILY 135 90 May 13, 2023 4:17pm June 19, 2023 10:31am Start: 08-18-2020 End: 05-13-2023 take 1 tablet by mouth once daily Amlodipine 5 mg tablet Discontinued 5 mg PO DAILY 90 0 January 24, 2023 1:36pm February 08, 2023 9:49am Start: 06-07-2020 End: 06-12-2021 take 5 mg by mouth once daily Amlodipine 10 mg tablet Discontinued 5 mg PO DAILY June 07, 2020 3:25pm June 12, 2021 4:12pm Start: 06-07-2020 End: 06-12-2021 take 5 mg by mouth once daily Amlodipine Discontinued 5 MG PO DAILY June 07, 2020 3:25pm June 12, 2021 4:12pm Start: 06-03-2018 End: 06-07-2020 take 1 tablet by mouth once daily Amlodipine 10 mg tablet Discontinued 10 mg PO DAILY June 03, 2018 12:00am June 07, 2020 3:26pm amoxicillin 875 mg / clavulanate 125 mg oral tablet (19 sources) Penicillin-class Antibacterial Start: 04-27-2022 End: 07-03-2022 Amoxicillin-Pot Clavulanate 875-125 mg tablet Discontinued 1 {tbl} PO TWICE A DAY April 27, 2022 1:00am July 03, 2022 8:05am Start: 04-27-2022 End: 07-03-2022 take 1 tablet by mouth twice daily Amoxicillin-Pot Clavulanate Discontinued 1 TABLET PO TWICE A DAY April 27, 2022 1:00am July 03, 2022 8:05am aspirin 81 mg delayed release oral tablet (20 sources) Platelet Aggregation Inhibitor, Nonsteroidal Anti-inflammatory Drug Start: 12-31-2019 End: 06-07-2020 take 1 tablet by mouth once daily Aspirin 81 mg tablet,delayed release (DR/EC) Discontinued 81 mg PO DAILY December 31, 2019 12:00am June 07, 2020 3:25pm atenolol 50 mg oral tablet (20 sources) beta-Adrenergic Jose Start: 02-09-2017 End: 12-19-2021 take 1 tablet by mouth once daily Atenolol 50 mg tablet Discontinued 50 mg PO daily February 09, 2017 1:00am December 19, 2021 3:44pm atorvastatin 10 mg oral tablet (20 sources) HMG-CoA Reductase Inhibitor Start: 12-31-2019 End: 08-11-2024 take 1 tablet by mouth once daily Atorvastatin 10 mg tablet Discontinued 10 mg PO DAILY 90 3 August 09, 2023 12:53pm August 11, 2024 12:31pm benzonatate 200 mg oral capsule (10 sources) Non-narcotic Antitussive Start: 03-31-2024 End: 05-11-2024 take 1 capsule by mouth three times daily as needed for cough Benzonatate 200 mg capsule Discontinued 200 mg PO THREE TIMES A DAY as needed for cough 20 0 March 31, 2024 1:00am May 11, 2024 2:26pm dexamethasone 6 mg oral tablet (10 sources) Corticosteroid Start: 03-31-2024 End: 04-15-2024 take 1 tablet by mouth once daily Dexamethasone 6 mg tablet Discontinued 6 mg PO DAILY 5 0 March 31, 2024 1:00am April 15, 2024 10:05am erythromycin 0.005 mg/mg ophthalmic ointment (10 sources) Macrolide, Macrolide Antimicrobial Start: 08-31-2023 End: 09-16-2023 Erythromycin 5 mg/gram (0.5 %) ointment Discontinued 0.5 [in_us] OPHTHALMIC .6 times day 3.5 0 August 31, 2023 12:00am September 16, 2023 1:50pm Flash Glucose Sensor (Freestyle Azucena 2 Sensor) kit (20 sources) Start: 10-30-2021 End: 03-27-2022 Flash Glucose Sensor (Freestyle Azucena 2 Sensor) kit Discontinued 0 .ROUTE .MEDSUPPLY 2 October 30, 2021 7:24am March 27, 2022 4:54pm As directed Start: 10-30-2021 End: 03-27-2022 Flash Glucose Sensor (Freest yle Azucena 2 Sensor) kit Discontinued 0 .ROUTE .MEDSUPPLY 2 October 30, 2021 7:24am March 27, 2022 4:54pm As directed Start: 10-30-2021 End: 03-27-2022 Flash Glucose Sensor (Freest yle Azucena 2 Sensor) kit Discontinued 0 .ROUTE .MEDSUPPLY 2 October 30, 2021 6:24am March 27, 2022 3:54pm As directed Start: 08-22-2022 Flash Glucose Sensor (Freestyle Azucena 2 Sensor) kit Active 0 .ROUTE .MEDSUPPLY 2 October 30, 2021 6:24am As directed Start: 10-30-2021 Flash Glucose Sensor (Freestyle Azucena 2 Sensor) kit Active 0 .ROUTE .MEDSUPPLY 2 October 30, 2021 7:24am As directed Start: 02-16-2021 End: 10-30-2021 Flash Glucose Sensor (Freest yle Azucena 2 Sensor) kit Discontinued 0 .ROUTE .MEDSUPPLY 2 February 16, 2021 4:40pm October 30, 2021 7:24am As directed Start: 02-16-2021 End: 10-30-2021 Flash Glucose Sensor (Freest yle Azucena 2 Sensor) kit Discontinued 0 .ROUTE .MEDSUPPLY 2 February 16, 2021 3:40pm October 30, 2021 6:24am As directed Start: 02-16-2021 End: 10-30-2021 Flash Glucose Sensor (Freest yle Azucena 2 Sensor) kit Discontinued 0 .ROUTE .MEDSUPPLY 2 February 16, 2021 4:40pm October 30, 2021 7:24am As directed Start: 08-18-2020 End: 02-16-2021 Flash Glucose Sensor (Freest yle Azucena 2 Sensor) kit Discontinued 0 .ROUTE .MEDSUPPLY 2 August 18, 2020 3:38pm February 16, 2021 4:40pm As directed Start: 08-18-2020 End: 02-16-2021 Flash Glucose Sensor (Freest yle Azucena 2 Sensor) kit Discontinued 0 .ROUTE .MEDSUPPLY 2 August 18, 2020 2:38pm February 16, 2021 3:40pm As directed Start: 08-18-2020 End: 02-16-2021 Flash Glucose Sensor (Freest yle Azucena 2 Sensor) kit Discontinued 0 .ROUTE .MEDSUPPLY 2 August 18, 2020 3:38pm February 16, 2021 4:40pm As directed Start: 04-07-2020 End: 08-18-2020 Flash Glucose Sensor (Freest yle Azucena 2 Sensor) kit Discontinued 0 .ROUTE .MEDSUPPLY 2 April 07, 2020 1:00am August 18, 2020 3:39pm As directed Start: 04-07-2020 End: 08-18-2020 Flash Glucose Sensor (Freest yle Azucena 2 Sensor) kit Discontinued 0 .ROUTE .MEDSUPPLY 2 April 07, 2020 12:00am August 18, 2020 2:39pm As directed Start: 04-07-2020 End: 08-18-2020 Flash Glucose Sensor (Freest yle Azucena 2 Sensor) kit Discontinued 0 .ROUTE .MEDSUPPLY 2 April 07, 2020 1:00am August 18, 2020 3:39pm As directed glimepiride 4 mg oral tablet (20 sources) Sulfonylurea Start: 11-06-2021 End: 12-19-2021 take 1 tablet by mouth once daily Glimepiride 4 mg tablet Discontinued 4 mg PO DAILY November 06, 2021 9:03am December 19, 2021 3:43pm Start: 04-07-2020 End: 11-06-2021 take 1 tablet by mouth twice daily Glimepiride 4 mg tablet Discontinued 4 mg PO TWICE A DAY 180 February 16, 2021 4:40pm November 06, 2021 9:04am Start: 12-31-2019 End: 04-07-2020 take 1 tablet by mouth once daily Glimepiride 4 mg tablet Discontinued 4 mg PO DAILY 90 December 31, 2019 12:00am April 07, 2020 3:59pm Start: 02-09-2017 End: 12-31-2019 take 1 tablet by mouth once daily Glimepiride 1 mg tablet Discontinued 1 mg PO daily 30 December 16, 2017 12:47pm March 18, 2018 4:34pm Type 2 diabetes mellitus with other circulatory complications hydrocortisone 25 mg/ml topical cream (19 sources) Corticosteroid Start: 04-27-2022 End: 08-01-2022 Hydrocortisone 2.5 % cream Discontinued 1 NMA TOPICAL TWICE A DAY as needed for skin irritation 30 April 27, 2022 1:00am August 01, 2022 4:57pm 3 ml insulin aspart, human 100 unt/ml pen injector (15 sources) Insulin Analog Start: 03-07-2023 End: 03-07-2023 Insulin Aspart U-100 (Novolog Flexpen U-100 Insulin) 100 unit/mL (3 mL) insulin pen Discontinued 30 U SC THREE TIMES A DAY 81 March 07, 2023 1:00am March 07, 2023 4:02pm 3 ml insulin glargine 100 unt/ml pen injector (20 sources) Insulin Analog Start: 09-16-2023 End: 01-20-2024 Insulin Glargine 100 unit/mL (3 mL) insulin pen Discontinued 18 U SC AT BEDTIME 15 December 11, 2023 12:45pm January 20, 2024 3:15pm Diabetes mellitus Type 2 diabetes mellitus with hyperglycemia FPC (current) use of insulin Start: 06-19-2023 End: 09-16-2023 Insulin Glargine 100 unit/mL (3 mL) insulin pen Discontinued 16 U SC AT BEDTIME June 19, 2023 10:09am September 16, 2023 2:05pm Diabetes mellitus Type 2 diabetes mellitus with hyperglycemia 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 Start: 01-09-2023 End: 06-19-2023 Insulin Glargine 100 unit/mL (3 mL) insulin pen Discontinued 18 U SC AT BEDTIME 15 January 09, 2023 3:42pm June 19, 2023 10:10am Diabetes mellitus Type 2 diabetes mellitus with hyperglycemia FPC (current) use of insulin Start: 03-27-2022 End: 01-09-2023 Insulin Glargine 100 unit/mL (3 mL) insulin pen Discontinued 16 U SC AT BEDTIME March 27, 2022 4:47pm January 09, 2023 3:43pm Start: 01-31-2022 End: 03-27-2022 Insulin Glargine 100 unit/mL (3 mL) insulin pen Discontinued 18 U SC AT BEDTIME January 31, 2022 11:25am March 27, 2022 4:48pm Start: 09-18-2021 End: 01-31-2022 Insulin Glargine 100 unit/mL (3 mL) insulin pen Discontinued 18 U SC DAILY 15 December 19, 2021 3:43pm January 31, 2022 11:26am Start: 06-22-2020 End: 09-18-2021 Insulin Glargine 100 unit/mL (3 mL) insulin pen Discontinued 26 U SC DAILY 15 February 16, 2021 4:40pm September 18, 2021 4:06pm Start: 04-07-2020 End: 06-22-2020 Insulin Glargine (Lantus Faustina ostar U-100 Insulin) 100 unit/mL (3 mL) insulin pen Discontinued 40 U SC TWICE A DAY 15 April 07, 2020 1:00am June 22, 2020 11:05am loratadine 10 mg oral tablet (10 sources) Start: 10-21-2023 End: 09-08-2024 take 1 tablet by mouth once daily Loratadine (Claritin) 10 mg tablet Discontinued 10 mg PO DAILY October 21, 2023 12:00am September 08, 2024 1:09pm meloxicam 7.5 mg oral tablet (20 sources) Nonsteroidal Anti-inflammatory Drug Start: 01-29-2020 End: 01-31-2022 take 1 tablet by mouth twice daily as needed for pain Meloxicam 7.5 mg tablet Discontinued 7.5 mg PO TWICE A DAY as needed for Pain Score 1-10 June 07, 2020 12:00am January 31, 2022 11:25am 24 hr metoprolol succinate 50 mg extended release oral tablet (20 sources) beta-Adrenergic Jose Start: 10-23-2023 End: 04-15-2024 take 1 tablet by mouth once daily Metoprolol Succinate 50 mg tablet extended release 24 hr Discontinued 50 mg PO DAILY 90 December 11, 2023 12:12pm April 15, 2024 10:24am Start: 08-01-2022 End: 10-23-2023 take 1 tablet by mouth twice daily Metoprolol Succinate 50 mg tablet extended release 24 hr Discontinued 50 mg PO TWICE A DAY 180 90 August 01, 2022 5:25pm October 23, 2023 12:44pm Start: 12-19-2021 End: 08-01-2022 take 1 tablet by mouth once daily Metoprolol Succinate 50 mg tablet extended release 24 hr Discontinued 50 mg PO DAILY 90 March 27, 2022 4:47pm August 01, 2022 5:25pm Ji-Qh-Ooakcl-Fzqipzvi-Zgxf-I rb 500 mcg DFE- 2.5 mg-50 mg capsule (7 sources) Start: 09-08-2024 End: 11-04-2024 Wb-Vi-Gbnobs-Zlzjiqts-Ypmc-L rb 500 mcg DFE- 2.5 mg-50 mg capsule Discontinued NMA PO September 08, 2024 12:00am November 04, 2024 10:21am Start: 09-08-2024 Wd-Ct-Kobyoy-F szjfyjc-Ezzx-Mzo 500 mcg DFE- 2.5 mg-50 mg capsule Active NMA PO September 08, 2024 12:00am Nirmatrelvir-Ritonavir (1 source) Start: 03-31-2024 End: 04-15-2024 Nirmatrelvir-Ritonavir (Paxlovid) 300 mg (150 mg x 2)-100 mg tablets,dose pack Discontinued 0 PO .COMPLEX March 31, 2024 1:00am April 15, 2024 10:05am take TWO 150 mg tablets of nirmatrelvir with ONE 100 mg tablet of ritonavir twice daily for 5 days PO Nirmatrelvir-Ritonavir (Paxlovid) 300 mg (150 mg x 2)-100 mg tablets,dose pack (9 sources) Start: 03-31-2024 End: 04-15-2024 Nirmatrelvir-Ritonavir (Paxlovid) 300 mg (150 mg x 2)-100 mg tablets,dose pack Discontinued 0 PO .COMPLEX 30 March 31, 2024 1:00am April 15, 2024 10:05am take TWO 150 mg tablets of nirmatrelvir with ONE 100 mg tablet of ritonavir twice daily for 5 days PO Start: 03-31-2024 End: 04-15-2024 Nirmatrelvir-Ritonavir (Paxl ovid) 300 mg (150 mg x 2)-100 mg tablets,dose pack Discontinued 0 PO .COMPLEX March 31, 2024 1:00am April 15, 2024 10:05am take TWO 150 mg tablets of nirmatrelvir with ONE 100 mg tablet of ritonavir twice daily for 5 days PO nystatin 100 unt/mg topical powder (20 sources) Polyene Antifungal Start: 06-19-2023 End: 06-26-2023 Nystatin 100,000 unit/gram powder Discontinued 1 NMA TOPICAL TWICE A DAY 15 7 0 June 19, 2023 12:00am June 25, 2023 12:00am June 26, 2023 12:11am 1 application to affected area/perineal fold. Start: 06-19-2023 End: 06-26-2023 Nystatin Discontinued 1 APPL IC TOPICAL TWICE A DAY 15 June 19, 2023 12:00am June 26, 2023 12:11am 1 application to affected area/perineal fold. Start: 06-19-2023 Nystatin Activ e 1 APPLIC TOPICAL TWICE A DAY 15 June 19, 2023 12:00am 1 application to affected area/perineal fold. Start: 06-07-2020 End: 11-06-2021 Nystatin 100,000 unit/gram p owder Discontinued 1 NMA TOPICAL TWICE A DAY 30 June 07, 2020 12:00am November 06, 2021 9:03am Start: 06-07-2020 End: 11-06-2021 Nystatin Discontinued 1 APPL IC TOPICAL TWICE A DAY June 07, 2020 12:00am November 06, 2021 9:03am Nystatin 100,000 unit/gram powder (9 sources) Start: 06-19-2023 End: 06-26-2023 Nystatin 100,000 unit/gram p owder Discontinued 1 NMA TOPICAL TWICE A DAY 15 7 June 19, 2023 12:00am June 25, 2023 12:00am June 26, 2023 12:11am 1 application to affected area/perineal fold. Start: 06-19-2023 End: 06-26-2023 Nystatin 100,000 unit/gram p owder Discontinued 1 NMA TOPICAL TWICE A DAY 15 June 19, 2023 12:00am June 25, 2023 12:00am June 26, 2023 12:11am 1 application to affected area/perineal fold. omeprazole 40 mg delayed release oral capsule (13 sources) Proton Pump Inhibitor Start: 10-06-2024 End: 11-04-2024 take 1 capsule by mouth once daily 30 minutes before breakfast Omeprazole 40 mg capsule,delayed release(DR/EC) Discontinued 40 mg PO daily 90 October 06, 2024 3:40pm November 04, 2024 10:21am Take 30 minutes before breakfast Start: 04-15-2024 End: 09-08-2024 take 1 capsule by mouth once daily 30 minutes before breakfast Omeprazole 40 mg capsule,delayed release(DR/EC) Discontinued 40 mg PO daily 90 April 15, 2024 1:00am September 08, 2024 1:10pm Take 30 minutes before breakfast PARoxetine hydrochloride 10 mg oral tablet (20 sources) Serotonin Reuptake Inhibitor Start: 01-31-2022 End: 10-06-2024 take 1 tablet by mouth once daily Paroxetine Hcl 10 mg tablet Discontinued 10 mg PO DAILY 90 June 02, 2024 1:55pm October 06, 2024 10:02am Start: 02-09-2017 End: 12-19-2021 take 1 tablet by mouth once daily Paroxetine Hcl 10 mg tablet Discontinued 10 mg PO daily February 09, 2017 1:00am December 19, 2021 3:45pm pioglitazone 45 mg oral tablet (20 sources) Peroxisome Proliferator Receptor alpha Agonist, Peroxisome Proliferator Receptor gamma Agonist, Thiazolidinedione Start: 02-09-2017 End: 12-31-2019 take 1 tablet by mouth once daily Pioglitazone 45 mg tablet Discontinued 45 mg PO daily 30 December 30, 2017 8:30am March 18, 2018 4:34pm Type 2 diabetes mellitus with other circulatory complications pravastatin sodium 20 mg oral tablet (20 sources) HMG-CoA Reductase Inhibitor Start: 01-28-2019 End: 12-31-2019 take 1 tablet by mouth once daily Pravastatin 20 mg tablet Discontinued 20 mg PO DAILY December 31, 2019 12:00am December 31, 2019 2:36pm predniSONE 20 mg oral tablet (20 sources) Start: 11-06-2021 End: 12-19-2021 take 2 tablets by mouth once daily Prednisone 20 mg tablet Discontinued 40 mg PO DAILY November 06, 2021 12:00am December 19, 2021 3:23pm Start: 11-06-2021 End: 12-19-2021 take 40 mg by mouth once daily Prednisone Discontinued 40 MG PO DAILY November 06, 2021 12:00am December 19, 2021 3:23pm saccharomyces boulardii 250 mg oral capsule (10 sources) Start: 04-15-2024 End: 08-05-2024 take 1 capsule by mouth once Saccharomyces Boulardii (Probiotic (S.Boulardii)) 250 mg capsule Discontinued 250 mg PO ONCE April 15, 2024 1:00am August 05, 2024 10:14am 0.25 mg, 0.5 mg dose 1.5 ml semaglutide 1.34 mg/ml pen injector (20 sources) Start: 06-12-2021 End: 06-16-2021 Semaglutide (Ozempic) 0.25 mg or 0.5 mg(2 mg/1.5 mL) pen injector Discontinued 0.5 mg SC EVERY WEEK 1.5 3 June 12, 2021 12:00am June 16, 2021 2:44pm tumeric (20 sources) Start: 10-01-2017 End: 06-03-2018 tumeric Discontinued PO 0 October 01, 2017 12:00am June 03, 2018 3:19pm Start: 10-01-2017 End: 06-03-2018 tumeric Discontinued PO September 30, 2017 11:00pm June 03, 2018 2:19pm Start: 10-01-2017 End: 06-03-2018 tumeric Discontinued PO October 01, 2017 12:00am June 03, 2018 3:19pm ubidecarenone 75 mg oral capsule (20 sources) Start: 10-01-2017 End: 06-03-2018 Coenzyme Q10 (Ultra Coq10) 75 mg capsule Discontinued 75 mg PO daily October 01, 2017 12:00am June 03, 2018 3:19pm vitamin b12 0.5 mg chewable tablet (1 source) Vitamin B12 Start: 12-11-2023 End: 08-05-2024 Mecobalamin (Vitamin B12) 500 mcg tablet,chewable Discontinued ug PO December 11, 2023 12:00am August 05, 2024 10:14am Problems Active Problems Problem Classification Problem Date Documented Date Episodic/Chronic Anxiety disorders (20 sources) Mixed anxiety and depressive disorder; Translations: [Anxiety disorder, unspecified] Chronic Blindness and vision defects (16 sources) Bilateral hyperopia of eyes; Translations: [Hypermetropia, bilateral] 09-04-2022 Episodic Comment on above: exam date 09/03/22 Cataract (16 sources) Bilateral senile combined form cataracts of eyes; Translations: [Combined forms of age-related cataract, bilateral] 09-04-2022 Chronic Comment on above: exam date 09/03/22 Deficiency and other anemia (20 sources) Anemia; Translations: [Anemia, unspecified] 08-05-2024 Episodic Comment on above: Iron deficiency anem ia, has not taken oral iron pills. Stool for occult blood was negative.Discussed Oral Iron therapy vs IV Iron. Pt wants Oral Iron. Has taken Ferrex x 2 months, Iron profile is still low, HGB is 10.2.Discussed IV vs Oral replacement, she wants to Oral for another month. Has taken Ferrex x 3 months, Iron profile is still low, HGB is 10.6.Discussed IV vs Oral replacement, she wants to IV Iron. Deficiency and other anemia (12 sources) Iron deficiency anemia; Translations: [Iron deficiency anemia, unspecified] 09-14-2024 Episodic Deficiency and other anemia (2 sources) Iron-refractory iron deficiency anemia; Translations: [Other iron deficiency anemias] 12-15-2024 Episodic Deficiency and other anemia (2 sources) Iron deficiency anemia, unspecified; Translations: [Iron deficiency anemia, unspecified] Onset: 12-15-2024 Episodic Deficiency and other anemia (2 sources) Anemia, unspecified; Translations: [Anemia, unspecified] Onset: 09-15-2024 Episodic Deficiency and other anemia (1 source) Other iron deficiency anemias; Translations: [Other iron deficiency anemias] Onset: 12-15-2024 Episodic Deficiency and other anemia (1 source) Deficiency and other anemia Diabetes mellitus with complications (14 sources) Hypertensive disorder; Translations: [Type 2 diabetes mellitus with other circulatory complications] Onset: 09-08-2024 08-18-2020 Chronic Diabetes mellitus without complication (20 sources) Diabetes mellitus; Translations: [Type 2 diabetes mellitus without complications] 10-16-2018 Chronic Disorders of lipid metabolism (20 sources) Mixed hyperlipidemia; Translations: [Mixed hyperlipidemia] Onset: 02-04-2024 10-16-2018 Chronic Essential hypertension (20 sources) Benign essential hypertension; Translations: [Hypertensive disorder] Onset: 08-10-2024 10-16-2018 Chronic Immunizations and screening for infectious disease (10 sources) Needs influenza immunization; Translations: [Encounter for immunization] 12-11-2023 Episodic Inflammation; infection of eye (except that caused by tuberculosis or sexually transmitteddisease) (10 sources) Conjunctivitis; Translations: [Unspecified conjunctivitis] 08-31-2023 Episodic Lymphadenitis (20 sources) Axillary lymphadenopathy; Translations: [Localized enlarged lymph nodes] 06-24-2020 Episodic Mood disorders (2 sources) Depressive disorder 10-16-2018 Chronic Mycoses (2 sources) Candidiasis of skin and nail; Translations: [Candidiasis of skin and nails] 06-19-2023 Episodic Nonmalignant breast conditions (20 sources) Sebaceous cyst of skin of breast; Translations: [Other benign mammary dysplasias of unspecified breast] 01-03-2021 Episodic Osteoarthritis (20 sources) Osteoarthritis of knee; Translations: [Osteoarthritis of knee, unspecified] Chronic Other diseases of veins and lymphatics (16 sources) Venous insufficiency of leg; Translations: [Venous insufficiency (chronic) (peripheral)] 08-01-2022 Episodic Other hematologic conditions (1 source) Serum ferritin high Episodic Other lower respiratory disease (20 sources) Chronic cough; Translations: [Chronic cough] Onset: 11-04-2024 05-13-2023 Episodic Other nervous system disorders (20 sources) Meralgia paresthetica; Translations: [Meralgia paresthetica, left lower limb] 11-06-2021 Chronic Other nervous system disorders (4 sources) Meralgia paresthetica, left lower limb; Translations: [Meralgia paresthetica] Chronic Other nervous system disorders (1 source) Meralgia paresthetica of left leg; Translations: [Meralgia paresthetica, left lower limb] 11-06-2021 Chronic Other nutritional; endocrine; and metabolic disorders (20 sources) Obesity; Translations: [Obesity, unspecified] 12-19-2021 Chronic Other nutritional; endocrine; and metabolic disorders (12 sources) Obesity, unspecified; Translations: [Obesity, unspecified] Chronic Other screening for suspected conditions (not mental disorders or infectious disease) (20 sources) Patient encounter status; Translations: [Encounter for other screening for malignant neoplasm of breast] Onset: 10-01-2024 06-19-2023 Episodic Comment on above: Hx Lumpectomy, right 06/2020 R/O Liver disease. Other skin disorders (9 sources) Mass of subcutaneous tissue of back; Translations: [Localized swelling, mass and lump, trunk] 07-20-2020 Episodic Residual codes; unclassified (1 source) History of thoracic surgery; Translations: [Other specified postprocedural states] Episodic Residual codes; unclassified (6 sources) History of right mastectomy; Translations: [Other specified postprocedural states] 07-07-2020 Episodic Residual codes; unclassified (16 sources) Other specified postprocedural states; Translations: [Status post right breast lumpectomy] 07-07-2020 Episodic Comment on above: 06/2020 Residual codes; unclassified (15 sources) Family history of sudden cardiac ; Translations: [Family history of sudden cardiac ] 05-13-2023 Episodic Comment on above: sister Residual codes; unclassified (7 sources) Family history of sudden cardiac ; Translations: [Family history of sudden cardiac (SCD)] 05-13-2023 Episodic Residual codes; unclassified (10 sources) History of colonoscopy; Translations: [Other specified postprocedural states] 12-11-2023 Episodic Comment on above: 10/28/23. Polypsq5 ye ars. Retinal detachments; defects; vascular occlusion; and retinopathy (20 sources) Epiretinal membrane of left eye; Translations: [Puckering of macula, left eye] 09-04-2022 Chronic Comment on above: exam date 09/03/22 Skin and subcutaneous tissue infections (3 sources) Cellulitis, unspecified; Translations: [Cellulitis and abscess of unspecified sites] 04-27-2022 Episodic Spondylosis; intervertebral disc disorders; other back problems (20 sources) Inflammation of sacroiliac joint; Translations: [Sacroiliitis, not elsewhere classified] Chronic Unclassified (1 source) Cough, unspecified; Translations: [Cough, unspecified] Onset: 03-31-2024 Past or Other Problems Problem Classification Problem Date Documented Da te Episodic/Chronic Other aftercare (1 source) FPC (current) use of insulin; Translations: [FPC (current) use of insulin] Onset: 09-08-2024 Episodic Other bone disease and musculoskeletal deformities (1 source) Other specified disorders of bone density and structure, other site; Translations: [Other specified disorders of bone density and structure, other site] Onset: 03-24-2024 Episodic Results Test Name Value Interpretation Reference Range Facility Oncology Visit Reporton Oncology Visit Report [facility] [place] [address] OFFICE VISIT Date of Service: 12/15/24 5781 MR#: [id number] Acct: [id number] Name: KIRILL ALMAZAN Rep #: [id number] 2 : 1955 From: Anselmo Gallagher MD Age/Sex: 69/F [place] [facility] [email or web address] Status: Signed HPI Subjective Date of Service 12/15/24 Chief Complaint F/U CHARLIE History of Present Illness 69-year-old woman was found to have iron deficiency anemia. She started iron rich food for 2 months but hemoglobin remained stable so referred for further evaluation. She has hemorrhoids which has not been bleeding for a long time. She had not taken oral iron pills so elected to do oral Iron. Has taken Iron orally for 2-3 months. Comes for follow up. Feels tired. [facility] Medical History Iron deficiency anemia Anemia Chronic cough Flu vaccine need Cardiology follow-up encounter History of echocardiogram History of stress test Diabetes FH: sudden cardiac (SCD) Retinal hemorrhage, right eye Hyperopia of both eyes with regular astigmatism and presbyopia Epiretinal membrane (ERM) of left eye Combined forms of age-related cataract, bilateral Venous insufficiency of both lower extremities Insulin dependent diabetes mellitus Kidney stones Injury of head and neck Leg cramps Anxiety and depression Osteoarthritis of knee Meralgia paresthetica of left side Sacroiliitis Sebaceous cyst of breast Axillary adenopathy Radial scar of right breast Mixed hyperlipidemia Diabetes type 2, controlled Brain bleed History of kidney stones Migraine Breast lump Arthritis Seasonal allergic rhinitis Surgical History Hx of colonoscopy History of total knee replacement (TKR) History of excision of epidermal inclusion cyst S/P lumpectomy, right breast S/P breast biopsy, left Hx of knee surgery Hx of hand surgery Hx of tubal ligation History of Family History Mother Breast cancer Arthritis Father Arthritis Diabetes Hypertension High cholesterol Lung cancer Brother Asthma Prostate cancer Sister Sudden cardiac Social History household members: spouse current occupational status: retired Smoking Status: Never smoker second hand exposure: No alcohol intake: current alcohol intake frequency: holidays/special occasions only substance use type: does not use what type of physical activity do you participate in: walking frequency: 1-2 times per week seatbelt use: always Intake Vital Signs 11/17/24 12:47 12/15/24 14:52 Height 5 ft 2 in 5 ft 2 in Weight: 103.646 kg 101.86 kg BMI 41.8 41.1 BP 130/83 H 119/72 Blood Pressure Location Rt radial Lt brachial Position Sitting Sitting Respiration 18 18 Pulse 87 83 Pulse Source Monitor Monitor Temp 98.5 F 98.2 F Temperature Source Temporal Artery Temporal Artery Pulse Oximetry (%) 97 94 Oxygen Delivery Method room air room air Intake Is patient in pain?: No Allergies adhesive Allergy (Mild, Verified 12/15/24 15:00) Hives meperidine (From Demerol) Adverse Reaction (Unknown, Verified 12/15/24 15:00) Vomiting Medications ???Medication ???Instructions ???Recorded ???Confirmed ???Type psyllium husk 0.4 gram capsule 0.4 g PO DAILY 10/21/23 12/15/24 H istory (Metamucil) FreeStyle Azucena 3 Sensor #2 ea 01/20/24 12/15/24 Rx (blood-glucose sensor) insulin glargine 100 unit/mL (3 18 unit (0.18 mL) subcut QHS #15 m L 01/20/24 12/15/24 Rx mL) subcutaneous pen insulin lispro 100 unit/mL 35 unit (0.35 mL) subcut TID #96 m L 01/20/24 12/15/24 Rx subcutaneous pen (Humalog KwikPen (U-100) Insulin) metoprolol succinate 50 mg 50 mg PO DAILY #90 tabs 04/15/24 1 Rx tablet,extended release 24 hr pen needle, diabetic 32 gauge x #400 ea 05/11/24 12/15/24 Rx (BD Ultra-Fine Ale Pen Needle) atorvastatin 10 mg tablet 10 mg PO DAILY #90 tabs 08/11/24 1 Rx biotin 1 mg capsule 1 mg PO QDAY 09/08/24 12/15/24 His tory cholecalciferol (vitamin D3) 25 25 mcg PO QDAY 09/08/24 12/15/24 H istory mcg (1,000 unit) capsule empagliflozin 25 mg tablet 25 mg PO QDAY #90 tabs 09/08/24 Rx (Jardiance) levocetirizine 5 mg tablet (Xyzal) 5 mg PO QDAY 09/08/24 12/15/24 H istory mecobalamin (vitamin B12) 1,000 1,000 mcg PO QDAY 09/08/24 5 History mcg chewable tablet polysaccharide iron complex 150 mg 150 mg PO ONCE #90 caps 09/15/24 12/15/24 Rx iron capsule (Ferrex) amlodipine 10 mg tablet 10 mg PO DAILY #90 tabs 10/06/24 1 Rx paroxetine HCl 10 mg tablet 10 mg (more content not included)... Normal [facility] Absolute lymphocyte countOrd ered By: Anselmo Gallagher on 12-14-2024 Lymphocytes Auto (Unsp spec) [#/Vol] 1.88 10*3/uL 0.83-4.51 [facility] Absolute neutrophil countOrd ered By: Anselmo Gallagher on 12-14-2024 Neutrophils (Bld) [#/Vol] 6.1 10*3/uL 2.0-7.7 [facility] Anion gap in Serum or Plasma Ordered By: Anselmo Gallagher on 12-14-2024 Anion gap [Moles/Vol] 12 mmol/L 5-15 [facility] Automated lymphocyte count a s percentage of total leukocytesOrdered By: Anselmo Gallagher on 12-14-2024 Lymphocytes/100 WBC Auto (Unsp spec) 21.6 % 19- [facility] BUN/creatinine ratioOrdered By: Anselmo Gallagher on 12-14-2024 Urea nitrogen/Creatinine [Mass ratio] 11.7 mg/mg 10- [facility] Comment on above: Previous reported re sult: 12.3 RATIOEdited by: TRI on 12/14/24:1134 AMENDED REPORT 12/14/24 1134 BUN/CRE previously reported as: 12.3 RATIO Basophil percentageOrdered B y: Anselmo Gallagher on 12-14-2024 Basophils/100 WBC (Bld) 0.3 % 0-1 [facility] Bilirubin, totalOrdered By: Anselmo Gallagher on 12-14-2024 Bilirubin [Mass/Vol] 0.32 mg/dL 0.00-1.30 [facility] Comment on above: Previous reported re sult: 0.28 mg/dLEdited by: TRI on 12/14/24:1134 AMENDED REPORT 12/14/24 1134 T BILI previously reported as: 0.28 mg/dL CBC W/Diff, Automatedon Absolute Lymph 1.88 X10 3/uL Normal 0.83-4.51 [facility] Comment on above: Performed By: #### L [id number], [id number], L500.4050, L506.0400, [id number] #### [facility] [address] [place], [address] Absolute Neut 6.1 X10 3/uL Normal 2.0-7.7 [facility] Comment on above: Performed By: #### L [id number], [id number], L500.4050, L506.0400, [id number] #### [facility] [address] [place], [address] Basophils/100 WBC (Bld) 0.3 % Normal 0-1 [facility] Comment on above: Performed By: #### L [id number], L500.4100, L500.4050, L506.0400, [id number] #### [facility] [address] [place], [address] Eosinophils/100 WBC (Bld) 1.4 % Normal 0-5 [facility] Comment on above: Performed By: #### L [id number], L500.4100, L500.4050, L506.0400, [id number] #### [facility] [address] [place], [address] Erythrocyte distribution width (RBC) [Ratio] 17.2 % High 11.6-14.6 [facility] Comment on above: Performed By: #### L [id number], L500.4100, L500.4050, L506.0400, [id number] #### [facility] [address] [place], [address] Hematocrit (Bld) [Volume fraction] 36.0 % Low 37-47 [facility] Comment on above: Performed By: #### L [id number], [id number], L500.4050, [id number], [id number] #### [facility] [address] [place], [address] Hemoglobin (Bld) [Mass/Vol] 10.6 g/dL Low 12.0-15.0 [facility] Comment on above: Performed By: #### L [id number], [id number], L500.4050, L506.0400, [id number] #### [facility] [address] [place], [address] IG% 0.300 Normal 0.0-0.9 [facility] Comment on above: Result Comment: IG% - Immature Granulocytes (promyelocytes, myelocytes and metamyelocytes) > 1% indicates that a LEFT SHIFT is Present. Performed By: #### L [id number], L500.4100, L500.4050, L506.0400, [id number] #### [facility] [address] [place], [address] Lymphocytes/100 WBC (Bld) 21.6 % Normal 19-41 [facility] Comment on above: Performed By: #### L [id number], [id number], L500.4050, L506.0400, [id number] #### [facility] [address] [place], [address] MCH (RBC) [Entitic mass] 25.1 pg Low 27.0-32.0 [facility] Comment on above: Performed By: #### L [id number], [id number], L500.4050, L506.0400, [id number] #### [facility] [address] [place], [address] MCHC (RBC) [Mass/Vol] 29.4 g/dL Low 32-36 [facility] Comment on above: Performed By: #### L [id number], [id number], L500.4050, L506.0400, [id number] #### [facility] [address] [place], [address] MCV (RBC) [Entitic vol] 85.3 fL Normal 81-99 [facility] Comment on above: Performed By: #### L [id number], [id number], L500.4050, L506.0400, [id number] #### [facility] [address] [place], [address] Monocytes/100 WBC (Bld) 6.4 % Normal 0-10 [facility] Comment on above: Performed By: #### L [id number], [id number], L500.4050, L506.0400, [id number] #### [facility] [address] [place], [address] Neutrophils/100 WBC (Bld) 70.0 % Normal 47-70 [facility] Comment on above: Performed By: #### L [id number], L500.4100, L500.4050, L506.0400, [id number] #### [facility] [address] [place], [address] Nucleated RBC (Bld) [#/Vol] 0 10*3/uL Normal 0-5 [facility] Comment on above: Performed By: #### L [id number], L500.4100, L500.4050, L506.0400, [id number] #### [facility] [address] [place], [address] Platelet mean volume (Bld) [Entitic vol] 10.1 fL Normal 6.2-12.0 [facility] Comment on above: Performed By: #### L [id number], L500.4100, L500.4050, L506.0400, [id number] #### [facility] [address] [place], [address] Platelets (Bld) [#/Vol] 469 10*3/uL High 150-450 [facility] Comment on above: Performed By: #### L [id number], [id number], L500.4050, [id number], [id number] #### [facility] [address] [place], [address] RBC (Bld) [#/Vol] 4.22 10*6/uL Normal 4.2-5.4 [facility] Comment on above: Performed By: #### L 501.9520, L500.4100, L500.4050, L506.0400, L506.1000 #### [facility] [address] [place], [address] RDW SD 53.2 fl High 35.1-43.9 [facility] Comment on above: Performed By: #### L 501.9520, L500.4100, L500.4050, L506.0400, L506.1000 #### [facility] [address] [place], [address] WBC (Bld) [#/Vol] 8.7 10*3/uL Normal 4.4-11.0 [facility] Comment on above: Performed By: #### L 501.9520, L500.4100, L500.4050, L506.0400, L506.1000 #### [facility] [address] [place], [address] CRPon 12-14-2024 C-REACTIVE PROT 123.00 mg/L High 0.0-3.0 [facility] Comment on above: Performed By: #### L 501.9520, L500.4100, L500.4050, L506.0400, L506.1000 #### [facility] [address] [place], [address] Carbon dioxide, total [Moles /volume] in Central venous bloodOrdered By: Anselmo Gallagher on 12-14-2024 CO2 [Moles/Vol] 25.9 mmol/L 21.0-32.0 [facility] Comment on above: Previous reported re sult: 24.6 mmol/LEdited by: TRI on 12/14/24:1134 AMENDED REPORT 12/14/24 1134 CO2 previously reported as: 24.6 mmol/L Chloride assayOrdered By: Tessy Gallagher on 12-14-2024 Chloride [Moles/Vol] 101 mmol/L 98-108 [facility] Comprehensive Metabolic Prof ilon 12-14-2024 Albumin [Mass/Vol] 3.6 g/dL Normal 3.4-4.8 [facility] Comment on above: Result Comment: AMENDED REPORT 12/14/24 1134 ALB previously reported as: 3.5 g/dL Performed By: #### L 501.9520, L500.4100, L500.4050, L506.0400, L506.1000 #### [facility] [address] [place], [address] Albumin/Globulin [Mass ratio] 0.9 {ratio} Normal 0.9-2.4 [facility] Comment on above: Performed By: #### L 501.9520, L500.4100, L500.4050, L506.0400, L506.1000 #### [facility] [address] [place], [address] ALK PHOS 75 U/L Normal 35-104 [facility] Comment on above: Result Comment: AMENDED REPORT 12/14/241133 ALK P previously reported as: 76 U/L Performed By: #### L 501.9520, L500.4100, L500.4050, L506.0400, L506.1000 #### [facility] [address] [place], [address] ALT [Catalytic activity/Vol] U/L Normal <=34 [facility] Comment on above: Result Comment: AMENDED REPORT 12/14/241133 ALT previously reported as: 5 U/L Performed By: #### L 501.9520, L500.4100, L500.4050, L506.0400, L506.1000 #### [facility] [address] [place], [address] AST [Catalytic activity/Vol] 9 U/L Normal <=31 [facility] Comment on above: Performed By: #### L 501.9520, L500.4100, L500.4050, L506.0400, L506.1000 #### [facility] [address] [place], [address] Bilirubin [Mass/Vol] 0.32 mg/dL Normal 0.00-1.30 [facility] Comment on above: Result Comment: AMENDED REPORT 12/14/241133 T BILI previously reported as: 0.28 mg/dL Performed By: #### L 501.9520, L500.4100, L500.4050, L506.0400, L506.1000 #### [facility] [address] [place], [address] BUN/CRE 11.7 RATIO Normal 10-20 [facility] Comment on above: Result Comment: AMENDED REPORT 12/14/241133 BUN/CRE previously reported as: 12.3 RATIO Performed By: #### L 501.9520, L500.4100, L500.4050, L506.0400, L506.1000 #### [facility] [address] [place], [address] Calcium [Mass/Vol] 9.7 mg/dL Normal 7.6-11.0 [facility] Comment on above: Performed By: #### L 501.9520, L500.4100, L500.4050, L506.0400, L506.1000 #### [facility] [address] [place], [address] Chloride [Moles/Vol] 101 mmol/L Normal 98-108 [facility] Comment on above: Performed By: #### L 501.9520, L500.4100, L500.4050, L506.0400, L506.1000 #### [facility] [address] [place], [address] CO2 [Moles/Vol] 25.9 mmol/L Normal 21.0-32.0 [facility] Comment on above: Result Comment: AMENDED REPORT 12/14/24 1134 CO2 previously reported as: 24.6 mmol/L Performed By: #### L 501.9520, L500.4100, L500.4050, L506.0400, L506.1000 #### [facility] [address] [place], [address] Creatinine [Mass/Vol] 0.91 mg/dL Normal 0.70-1.20 [facility] Comment on above: Result Comment: AMENDED REPORT 12/14/24 1134 CREAT,SERUM previously reported as: 0.85 mg/dL Performed By: #### L 501.9520, L500.4100, L500.4050, L506.0400, L506.1000 #### [facility] [address] [place], [address] ECRCL 66.80 ml/min Normal 50-250 [facility] Comment on above: Result Comment: AMENDED REPORT 12/14/24 113 Estimated CRCL previously reported as: 71.52 ml/min Performed By: #### L 501.9520, L500.4100, L500.4050, L506.0400, L506.1000 #### [facility] [address] [place], [address] GAP 12 Normal 5-15 [facility] Comment on above: Performed By: #### L 501.9520, L500.4100, L500.4050, L506.0400, L506.1000 #### [facility] [address] [place], [address] Globulin (S) [Mass/Vol] 3.9 g/dL Normal 2.2-4.2 [facility] Comment on above: Result Comment: AMENDED REPORT 12/14/24 1134 GLOB previously reported as: 4.0 g/dL Performed By: #### L 501.9520, L500.4100, L500.4050, L506.0400, L506.1000 #### [facility] [address] [place], [address] Glucose [Mass/Vol] 278 mg/dL High 70-99 [facility] Comment on above: Performed By: #### L 501.9520, L500.4100, L500.4050, L506.0400, L506.1000 #### [facility] [address] [place], [address] Potassium [Moles/Vol] 4.1 mmol/L Normal 3.3-5.1 [facility] Comment on above: Performed By: #### L 501.9520, L500.4100, L500.4050, L506.0400, L506.1000 #### [facility] [address] [place], [address] Sodium [Moles/Vol] 139 mmol/L Normal 133-145 [facility] Comment on above: Performed By: #### L 501.9520, L500.4100, L500.4050, L506.0400, L506.1000 #### [facility] [address] [place], [address] T PROT 7.4 g/dL Normal 5.9-8.4 [facility] Comment on above: Performed By: #### L 501.9520, L500.4100, L500.4050, L506.0400, L506.1000 #### [facility] [address] [place], [address] Urea nitrogen [Mass/Vol] 11 mg/dL Normal 4-19 [facility] Comment on above: Result Comment: AMENDED REPORT 12/14/24 1134 BUN previously reported as: 10 mg/dL Performed By: #### L 501.9520, L500.4100, L500.4050, L506.0400, L506.1000 #### [facility] [address] [place], [address] Eosinophil percentageOrdered By: Anselmo Gallagher on 12-14-2024 Eosinophils/100 WBC (Bld) 1.4 % 0-5 [facility] Erythrocyte Sed Rateon 12-14 SED RATE 64 mm/hr High 0-30 [facility] Comment on above: Performed By: #### L 501.9520, L500.4100, L500.4050, L506.0400, L506.1000 #### [facility] [address] [place], [address] Erythrocyte distribution wid th ratioOrdered By: Anselmo Gallagher on 12-14-2024 Erythrocyte distribution width (RBC) [Ratio] 17.2 % High 11.6-14.6 [facility] Erythrocyte distribution wid th standard deviationOrdered By: Anselmo Gallagher on 12-14-2024 Erythrocyte distribution width (RBC) [Ratio] 53.2 fl High 35.1-43.9 [facility] Erythrocyte sedimentation ra teOrdered By: Anselmo Gallagher on 12-14-2024 ESR (Bld) [Velocity] 64 mm/h High 0-30 [facility] Ferritinon 12-14-2024 Ferritin [Mass/Vol] 874 ng/mL High 22-378 [facility] Comment on above: Performed By: #### L 501.9520, L500.4100, L500.4050, L506.0400, L506.1000 #### [facility] [address] [place], [place], [address] Glomerular filtration rate ( GFR) estimation/1.73 sq m using serum, plasma, or whole bOrdered By: Anselmo Gallagher on 12-14-2024 GFR/1.73 sq M.predicted among non-blacks MDRD (S/P/Bld) [Vol rate/Area] 75 mL/min/{1.73_m2} >60 [facility] Comment on above: mL/min/1.73m2 CKD-EP I Creatinine Equation (2020) Hematocrit Auto (Bld) [Volum e fraction]Ordered By: Anselmo Gallagher on 12-14-2024 Hematocrit (Bld) [Volume fraction] 36.0 % Low 37-47 [facility] Hemoglobin measurementOrdere d By: Anselmo Gallagher on 12-14-2024 Hemoglobin (Bld) [Mass/Vol] 10.6 g/dL Low 12.0-15.0 [facility] Immature granulocytes/100 WB C Auto (Bld)Ordered By: Anselmo Gallagher on 12-14-2024 Immature granulocytes/100 WBC (Bld) 0.300 % 0.0-0.9 [facility] Comment on above: IG% - Immature Granu locytes (promyelocytes, myelocytes and metamyelocytes) > 1% indicates that a LEFT SHIFT is Present. Iron measurement (mass/mass) Ordered By: Anselmo Gallagher on 12-14-2024 Iron (Unsp spec) [Mass/Mass] 23 ug/dL Low 50-170 [facility] Iron+Iron Binding Capacityon 12-14-2024 TIBC 182 ug/dL Low 250-450 [facility] Comment on above: Performed By: #### L 501.9520, L500.4100, L500.4050, L506.0400, L506.1000 #### [facility] [address] [place], [address] LDHon 12-14-2024 LDH 149 U/L Normal 84-246 [facility] Comment on above: Order Comment: 1 Performed By: #### L 501.9520, L500.4100, L500.4050, L506.0400, L506.1000 #### [facility] [address] [place], [address] Laboratory - Chemistry and C hemistry - challengeOrdered By: Anselmo Gallagher on 12-14-2024 AST [Catalytic activity/Vol] 9 U/L <32 [facility] Lactate dehydrogenase (LDH) measurementOrdered By: Anselmo Gallagher on 12-14-2024 LDH [Catalytic activity/Vol] 149 U/L 84-246 [facility] MCV (mean corpuscular volume ) determinationOrdered By: Anselmo Gallagher on 12-14-2024 MCV (RBC) [Entitic vol] 85.3 fL 81-99 [facility] Magnesiumon 12-14-2024 Magnesium [Mass/Vol] 2.1 mg/dL Normal 1.5-2.2 [facility] Comment on above: Performed By: #### L 501.9520, L500.4100, L500.4050, L506.0400, L506.1000 #### [facility] [address] [place], [address] Magnesium measurement (mass/ volume)Ordered By: Anselmo Gallagher on 12-14-2024 Magnesium (Unsp spec) [Mass/Vol] 2.1 mg/dL 1.5-2.2 [facility] Mean corpuscular hemoglobin (MCH) determinationOrdered By: Anselmo Gallagher on 12-14-2024 MCH (RBC) [Entitic mass] 25.1 pg Low 27.0-32.0 [facility] Mean corpuscular hemoglobin concentration (MCHC) determinationOrdered By: Anselmo Gallagher on 12-14-2024 MCHC (RBC) [Mass/Vol] 29.4 g/dL Low 32-36 [facility] Mean platelet volume determi nationOrdered By: Anselmo Gallagher on 12-14-2024 Platelet mean volume (Bld) [Entitic vol] 10.1 fL 6.2-12.0 [facility] Monocyte percentageOrdered B y: Anselmo Gallagher on 12-14-2024 Monocytes/100 WBC (Bld) 6.4 % 0-10 [facility] Neutrophil percentageOrdered By: Anselmo Gallagher on 12-14-2024 Neutrophils/100 WBC (Bld) 70.0 % 47-70 [facility] No Panel InformationOrdered By: Anselmo Gallagher on 12-14-2024 Unsaturated Iron Binding Capacity 159 ug/dL Low 228-428 [facility] Nucleated red blood cell per centageOrdered By: Anselmo Gallagher on 12-14-2024 Nucleated RBC/100 WBC (Bld) [Ratio] 0 % 0-5 [facility] Phosphoruson 12-14-2024 Phosphate [Mass/Vol] 2.7 mg/dL Normal 2.7-4.5 [facility] Comment on above: Performed By: #### L 501.9520, L500.4100, L500.4050, L506.0400, L506.1000 #### [facility] [address] [place], [address] Platelet countOrdered By: Tessy Gallagher on 12-14-2024 Platelets (Bld) [#/Vol] 469 10*3/uL High 150-450 [facility] Potassium measurement (mass/ volume)Ordered By: Anselmo Gallagher on 12-14-2024 Potassium (Unsp spec) [Mass/Vol] 4.1 mmol/L 3.3-5.1 [facility] RBC Auto (Bld) [#/Vol]Ordere d By: Anselmo Gallagher on 12-14-2024 RBC (Bld) [#/Vol] 4.22 10*6/uL 4.2-5.4 [facility] Retic Panelon 12-14-2024 IM RET FRACTION 19.00 High 3.00-15.90 [facility] Comment on above: Performed By: #### L 501.9520, L500.4100, L500.4050, L506.0400, L506.1000 #### [facility] [address] [place], [address] RET-HE 25.0 pg Low 30-35 [facility] Comment on above: Performed By: #### L 501.9520, L500.4100, L500.4050, L506.0400, L506.1000 #### [facility] [address] [place], [address] Retic Count 1.48 Normal 0.5-1.5 [facility] Comment on above: Performed By: #### L 501.9520, L500.4100, L500.4050, L506.0400, L506.1000 #### [facility] [address] [place], [address] Reticulocyte hemoglobin equi valent (RET-He) measurementOrdered By: Anselmo Gallagher on 12-14-2024 Hemoglobin (Reticulocytes) [Entitic mass] 25.0 pg Low 30-35 [facility] Reticulocytes Auto (Bld) [#/ Vol]Ordered By: Anselmo Gallagher on 12-14-2024 Reticulocytes/100 RBC (Bld) 1.48 % 0.5-1.5 [facility] Serum creatinine measurement (mass/volume)Ordered By: Anselmo Gallagher on 12-14-2024 Creatinine [Mass/Vol] 0.91 mg/dL 0.70-1.20 [facility] Comment on above: Previous reported re sult: 0.85 mg/dLEdited by: TRI on 12/14/24:1134 AMENDED REPORT 12/14/24 1134 CREAT,SERUM previously reported as: 0.85 mg/dL Serum globulin measurementOr dered By: Anselmo Gallagher on 12-14-2024 Globulin (S) [Mass/Vol] 3.9 g/dL 2.2-4.2 [facility] Comment on above: Previous reported re sult: 4.0 g/dLEdited by: TRI on 12/14/24:1134 AMENDED REPORT 12/14/24 1134 GLOB previously reported as: 4.0 g/dL Serum glucose measurement (m ass/volume)Ordered By: Anselmo Gallagher on 12-14-2024 Glucose [Mass/Vol] 278 mg/dL High 70-99 [facility] Serum or plasma C reactive p rotein measurement (mass/volume)Ordered By: Anselmo Gallagher on 12-14-2024 CRP [Mass/Vol] 123.00 mg/L High 0.0-3.0 [facility] Serum or plasma alanine lloyd otransferase (ALT) measurementOrdered By: Anselmo Gallagher on 12-14-2024 ALT [Catalytic activity/Vol] U/L <35 [facility] Comment on above: Previous reported re sult: 5 U/LEdited by: TRI on 12/14/24:1134 AMENDED REPORT 12/14/24 1134 ALT previously reported as: 5 U/L Serum or plasma albumin akanksha urement (mass/volume)Ordered By: Anselmo Gallagher on 12-14-2024 Albumin [Mass/Vol] 3.6 g/dL 3.4-4.8 [facility] Comment on above: Previous reported re sult: 3.5 g/dLEdited by: TRI on 12/14/24:1134 AMENDED REPORT 12/14/24 1134 ALB previously reported as: 3.5 g/dL Serum or plasma albumin/glob ulin mass ratioOrdered By: Anselmo Gallagher on 12-14-2024 Albumin/Globulin [Mass ratio] 0.9 {ratio} 0.9-2.4 [facility] Serum or plasma alkaline fern sphatase measurementOrdered By: Anselmo Gallagher on 12-14-2024 ALP [Catalytic activity/Vol] 75 U/L 35-104 [facility] Comment on above: Previous reported re sult: 76 U/LEdited by: TRI on 12/14/24:1134 AMENDED REPORT 12/14/24 1134 ALK P previously reported as: 76 U/L Serum or plasma calcium akanksha urement (mass/volume)Ordered By: Anselmo Gallagher on 12-14-2024 Calcium [Mass/Vol] 9.7 mg/dL 7.6-11.0 [facility] Serum or plasma ferritin chantel surement (mass/volume)Ordered By: Anselmo Gallagher on 12-14-2024 Ferritin [Mass/Vol] 874 ng/mL High 22-378 [facility] Serum or plasma iron saturat ion measurement (mass fraction)Ordered By: Anselmo Gallagher on 12-14-2024 Iron saturation [Mass fraction] 12.6 % Low 13-59 [facility] Comment on above: Previous reported re sult: 12.8 %Edited by: OTTONIEL on 12/14/24:1134 AMENDED REPORT 12/14/24 1134 IRON SATURATION previously reported as: 12.8 L % Serum or plasma urea nitroge n measurement (mass/volume)Ordered By: Anselmo Gallagher on 12-14-2024 Urea nitrogen [Mass/Vol] 11 mg/dL 4-19 [facility] Comment on above: Previous reported re sult: 10 mg/dLEdited by: TRI on 12/14/24:1134 AMENDED REPORT 12/14/24 1134 BUN previously reported as: 10 mg/dL Sodium levelOrdered By: Osiel Gallagher on 12-14-2024 Sodium [Moles/Vol] 139 mmol/L 133-145 [facility] Total proteinOrdered By: Herman Gallagher on 12-14-2024 Protein [Mass/Vol] 7.4 g/dL 5.9-8.4 [facility] Vitamin B12on 12-14-2024 Cobalamin (Vitamin B12) [Mass/Vol] 356 pg/mL Normal 180-914 [facility] Comment on above: Result Comment: AMENDED REPORT 12/14/24 1133 Vitamin B12 previously reported as: 381 pg/mL Performed By: #### L 501.9520, L500.4100, L500.4050, L506.0400, L506.1000 #### [facility] [address] [place], [address] Vitamin B12 ser/plasOrdered By: Anselmo Gallagher on 12-14-2024 Cobalamin (Vitamin B12) [Mass/Vol] 356 pg/mL 180-914 [facility] Comment on above: Previous reported re sult: 381 pg/mLEdited by: TRI on 12/14/24:1133 AMENDED REPORT 12/14/24 1133 Vitamin B12 previously reported as: 381 pg/mL White blood cell (WBC) count Ordered By: Anselmo Gallagher on 12-14-2024 WBC (Bld) [#/Vol] 8.7 10*3/uL 4.4-11.0 [facility] Celiac AB,Comprehensiveon ANTIGLIADIN IGA 18 units Normal 0-19 [facility] Comment on above: Result Comment: Nega tive 0 - 19 Weak Positive 20 - 30 Moderate to Strong Positive >30 Performed By: #### L 501.9520, L500.4100, L500.4050, L506.0400, L506.1000 #### [facility] [address] [place], [place], [id number] ANTIGLIADIN IGG 3 units Normal 0-19 [facility] Comment on above: Result Comment: Nega tive 0 - 19 Weak Positive 20 - 30 Moderate to Strong Positive >30 Performed By: #### L 501.9520, L500.4100, L500.4050, L506.0400, L506.1000 #### [facility] [address] [place], [address] ENDOMYSIAL IGA Negative Normal Negative [facility] Comment on above: Performed By: #### L 501.9520, L500.4100, L500.4050, L506.0400, L506.1000 #### [facility] [address] [place], [place], [address] IMMUNOGLOB A QN 339 mg/dL Normal 87-352 [facility] Comment on above: Result Comment: Perf ormed at: - [facility] [address] [id number] Property Maintenance Technician: Regan Bird PhD, Phone: [phone] Performed By: #### L 501.9520, L500.4100, L500.4050, L506.0400, L506.1000 #### [facility] [address] [place], [place], [address] tTG IGA 2 U/mL Normal 0-3 [facility] Comment on above: Result Comment: Nega tive 0 - 3 Weak Positive 4 - 10 Positive >10 Tissue Transglutaminase (tTG) has been identified as the endomysial antigen. Studies have demonstr- ated that endomysial IgA antibodies have over 99% specificity for gluten sensitive enteropathy. Performed By: #### L 501.9520, L500.4100, L500.4050, L506.0400, L506.1000 #### [facility] [address] [place], [address] tTG IGG 3 U/mL Normal 0-5 [facility] Comment on above: Result Comment: Nega tive 0 - 5 Weak Positive 6 - 9 Positive >9 Performed By: #### L 501.9520, L500.4100, L500.4050, L506.0400, L506.1000 #### [facility] [address] [place], [place], [address] No Panel InformationOrdered By: Anselmo Gallagher on 11-17-2024 Tissue Transglutaminase IgG Ab 3 U/mL 0-5 [facility] Comment on above: Negative 0 - 5 Weak Positive 6 - 9 Positive >9 Oncology Visit Reporton Oncology Visit Report [facility] [address] [place] [address] OFFICE VISIT Date of Service: 11/17/24 1246 MR#: [id number] Acct: [id number] Name: KIRILL ALMAZAN EMMANUEL Rep #: [id number] : 1955 From: Anselmo Gallagher MD Age/Sex: 69/F [place] [facility] [place] Status: Signed HPI Subjective Date of Service 11/17/24 Chief Complaint F/U CHARLIE History of Present Illness 69-year-old woman was found to have iron deficiency anemia. She started iron rich food for 2 months but hemoglobin remained stable so referred for further evaluation. She has hemorrhoids which has not been bleeding for a long time. She had not taken oral iron pills so elected to do oral Iron. Comes for follow up after 2 months. Feels well. [facility]LY [facility] Medical History Iron deficiency anemia Anemia Chronic cough Flu vaccine need Cardiology follow-up encounter History of echocardiogram History of stress test Diabetes FH: sudden cardiac (SCD) Retinal hemorrhage, right eye Hyperopia of both eyes with regular astigmatism and presbyopia Epiretinal membrane (ERM) of left eye Combined forms of age-related cataract, bilateral Venous insufficiency of both lower extremities Insulin dependent diabetes mellitus Kidney stones Injury of head and neck Leg cramps Anxiety and depression Osteoarthritis of knee Meralgia paresthetica of left side Sacroiliitis Sebaceous cyst of breast Axillary adenopathy Radial scar of right breast Mixed hyperlipidemia Diabetes type 2, controlled Brain bleed History of kidney stones Migraine Breast lump Arthritis Seasonal allergic rhinitis Surgical History Hx of colonoscopy History of total knee replacement (TKR) History of excision of epidermal inclusion cyst S/P lumpectomy, right breast S/P breast biopsy, left Hx of knee surgery Hx of hand surgery Hx of tubal ligation History of Family History Mother Breast cancer Arthritis Father Arthritis Diabetes Hypertension High cholesterol Lung cancer Brother Asthma Prostate cancer Sister Sudden cardiac Social History household members: spouse current occupational status: retired Smoking Status: Never smoker second hand exposure: No alcohol intake: current alcohol intake frequency: holidays/special occasions only substance use type: does not use what type of physical activity do you participate in: walking frequency: 1-2 times per week seatbelt use: always ROS Constitutional Constitutional: Reports systems reviewed and no addt'l complaints, except as documented Eyes Eyes: Reports systems reviewed and no addt'l complaints, except as documented ENT HEENT: Reports systems reviewed and no addt'l complaints, except as documented Cardiovascular Cardiovascular: Reports systems reviewed and no addt'l complaints, except as documented Respiratory/Chest Respiratory/Chest: Reports systems reviewed and no addt'l complaints, except as documented Gastrointestinal Gastrointestinal: Reports systems reviewed and no addt'l complaints, except as documented Genitourinary Genitourinary: Reports systems reviewed and no addt'l complaints, except as documented Musculoskeletal Musculoskeletal: Reports systems reviewed and no addt'l complaints, except as documented Integumentary Integumentary: Reports systems reviewed and no addt'l complaints, except as documented Neurologic Neurologic: Reports systems reviewed and no addt'l complaints, except as documented Psychiatric Psychiatric: Reports systems reviewed and no addt'l complaints, except as documented Endocrine Endocrinology: Reports systems reviewed and no addt'l complaints, except as documented Hematologic/Lymphat ic Hematologic/Lymphat ic: Reports systems reviewed and no addt'l complaints, except as documented Allergic/Immunologi c Allergic/Immunologi c: Reports systems reviewed and no addt'l complaints, except as documented Intake Vital Signs 09/15/24 13:24 11/17/24 12:47 Height 5 ft 2 in 5 ft 2 in Weight: 103.646 kg BMI 41.8 BP 130/83 H Blood Pressure Location Rt radial Position Sitting Respiration 18 Pulse 87 Pulse Source Monitor Temp 98.5 F Temperature Source Temporal Artery Pulse Oximetry (%) 97 Oxygen Delivery Method room air Intake Is patient in pain?: No Allergies adhesive Allergy (Mild, Verified 11/17/24 12:53) Hives meperidine (From Demerol) Adverse Reaction (Unknown, Verified 11/17/24 12:53) Vomiting Medications ???Medication ???Instructions ???Recorded ???Confirmed ???Type psyllium husk 0.4 gram capsule 0.4 g PO DAILY 10/21/23 11/17/24 H istory (more content not included)... Normal [facility] Serum tissue transglutaminas e (tTG) IgA antibody assay (units/volume)Ordered By: Anselmo Gallagher on 11-17-2024 tTG IgA Qn (S) 2 U/mL 0-3 [facility] Comment on above: Negative 0 - 3 Weak Positive 4 - 10 Positive >10 Tissue Transglutaminase (tTG) has been identified as the endomysial antigen. Studies have demonstr- ated that endomysial IgA antibodies have over 99% specificity for gluten sensitive enteropathy. Erythropoietinon 11-13-2024 ERYTHROPOIETIN 43.8 mIU/mL High 2.6-18.5 [facility] Comment on above: Result Comment: [employer] 800 Immunoassay System Values obtained with different assay methods or kits cannot be used interchangeably. Results cannot be interpreted as absolute evidence of the presence or absence of malignant disease. Performed at: [address] [id number] Property Maintenance Technician: Regan Bird PhD, Phone: [phone] Performed By: #### L 501.9520, L500.4100, L500.4050, L506.0400, L506.1000 #### [facility] [address] [place], [place], [id number] Folates, RBCon 11-13-2024 Fol.,Hemolysate 491.0 ng/mL Normal Not Estab. [facility] Comment on above: Performed By: #### L 100.0100 #### [facility] [address] [place], [place], [id number] (233) Folate, RBC 1466 ng/mL Normal >498 [facility] Comment on above: Result Comment: Perf ormed at: [address] [id number] Property Maintenance Technician: Regan Bird PhD, Phone: [phone] Performed By: #### L 100.0100 #### [facility] [address] [place], [place], [id number] Hematocrit (Bld) [Volume fraction] 33.5 % Low 34.0-46.6 [facility] Comment on above: Performed By: #### L 100.0100 #### [facility] [address] [place], [place], [id number] Absolute lymphocyte countOrd ered By: Anselmo Gallagher on 11-12-2024 Lymphocytes Auto (Unsp spec) [#/Vol] 1.93 10*3/uL 0.83-4.51 [facility] Absolute neutrophil countOrd ered By: Anselmo Elliott on 11-12-2024 Neutrophils (Bld) [#/Vol] 6.7 10*3/uL 2.0-7.7 [facility] Anion gap in Serum or Plasma Ordered By: Anselmo Gallagher on 11-12-2024 Anion gap [Moles/Vol] 11 mmol/L 5-15 [facility] Automated lymphocyte count a s percentage of total leukocytesOrdered By: Anselmo Gallagher on 11-12-2024 Lymphocytes/100 WBC Auto (Unsp spec) 20.3 % 19- [facility] BUN/creatinine ratioOrdered By: [facility] on 11-12-2024 Urea nitrogen/Creatinine [Mass ratio] 11.3 mg/mg 10- [facility] Basophil percentageOrdered B y: Anselmo Gallagher on 11-12-2024 Basophils/100 WBC (Bld) 0.2 % 0-1 [facility] Bilirubin, totalOrdered By: Anselmo Gallagher on 11-12-2024 Bilirubin [Mass/Vol] 0.33 mg/dL 0.00-1.30 [facility] CBC W/Diff, Automatedon Absolute Lymph 1.93 X10 3/uL Normal 0.83-4.51 [facility] Comment on above: Performed By: #### L 501.9520, L500.4100, L500.4050, L506.0400, L506.1000 #### [facility] [address] [place], [address] Absolute Neut 6.7 X10 3/uL Normal 2.0-7.7 [facility] Comment on above: Performed By: #### L 501.9520, L500.4100, L500.4050, L506.0400, L506.1000 #### [facility] [address] [place], [address] Basophils/100 WBC (Bld) 0.2 % Normal 0-1 [facility] Comment on above: Performed By: #### L 501.9520, L500.4100, L500.4050, L506.0400, L506.1000 #### [facility] [address] [place], [address] Eosinophils/100 WBC (Bld) 1.8 % Normal 0-5 [facility] Comment on above: Performed By: #### L 501.9520, L500.4100, L500.4050, L506.0400, L506.1000 #### [facility] [address] [place], [address] Erythrocyte distribution width (RBC) [Ratio] 17.0 % High 11.6-14.6 [facility] Comment on above: Performed By: #### L 501.9520, L500.4100, L500.4050, L506.0400, L506.1000 #### [facility] [address] [place], [address] Hematocrit (Bld) [Volume fraction] 33.2 % Low 37-47 [facility] Comment on above: Performed By: #### L 501.9520, L500.4100, L500.4050, L506.0400, L506.1000 #### [facility] [address] [place], [address] Hemoglobin (Bld) [Mass/Vol] 10.2 g/dL Low 12.0-15.0 [facility] Comment on above: Performed By: #### L 501.9520, L500.4100, L500.4050, L506.0400, L506.1000 #### [facility] [address] [place], [address] IG% 0.200 Normal 0.0-0.9 [facility] Comment on above: Result Comment: IG% - Immature Granulocytes (promyelocytes, myelocytes and metamyelocytes) > 1% indicates that a LEFT SHIFT is Present. Performed By: #### L 501.9520, L500.4100, L500.4050, L506.0400, L506.1000 #### [facility] [address] [place], [address] Lymphocytes/100 WBC (Bld) 20.3 % Normal 19-41 [facility] Comment on above: Performed By: #### L 501.9520, L500.4100, L500.4050, L506.0400, L506.1000 #### [facility] [address] [place], [address] MCH (RBC) [Entitic mass] 26.0 pg Low 27.0-32.0 [facility] Comment on above: Performed By: #### L 501.9520, L500.4100, L500.4050, L506.0400, L506.1000 #### [facility] [address] [place], [address] MCHC (RBC) [Mass/Vol] 30.7 g/dL Low 32-36 [facility] Comment on above: Performed By: #### L 501.9520, L500.4100, L500.4050, L506.0400, L506.1000 #### [facility] [address] [place], [address] MCV (RBC) [Entitic vol] 84.5 fL Normal 81-99 [facility] Comment on above: Performed By: #### L 501.9520, L500.4100, L500.4050, L506.0400, L506.1000 #### [facility] [address] [place], [address] Monocytes/100 WBC (Bld) 6.7 % Normal 0-10 [facility] Comment on above: Performed By: #### L 501.9520, L500.4100, L500.4050, L506.0400, L506.1000 #### [facility] [address] [place], [address] Neutrophils/100 WBC (Bld) 70.8 % High 47-70 [facility] Comment on above: Performed By: #### L 501.9520, L500.4100, L500.4050, L506.0400, L506.1000 #### [facility] [address] [place], [address] Nucleated RBC (Bld) [#/Vol] 0 10*3/uL Normal 0-5 [facility] Comment on above: Performed By: #### L 501.9520, L500.4100, L500.4050, L506.0400, L506.1000 #### [facility] [address] [place], [address] Platelet mean volume (Bld) [Entitic vol] 9.9 fL Normal 6.2-12.0 [facility] Comment on above: Performed By: #### L 501.9520, L500.4100, L500.4050, L506.0400, L506.1000 #### [facility] [address] [place], [address] Platelets (Bld) [#/Vol] 507 10*3/uL High 150-450 [facility] Comment on above: Performed By: #### L 501.9520, L500.4100, L500.4050, L506.0400, L506.1000 #### [facility] [address] [place], [address] RBC (Bld) [#/Vol] 3.93 10*6/uL Low 4.2-5.4 [facility] Comment on above: Performed By: #### L 501.9520, L500.4100, L500.4050, L506.0400, L506.1000 #### [facility] [address] [place], [address] RDW SD 52.2 fl High 35.1-43.9 [facility] Comment on above: Performed By: #### L 501.9520, L500.4100, L500.4050, L506.0400, L506.1000 #### [facility] [address] [place], [address] WBC (Bld) [#/Vol] 9.5 10*3/uL Normal 4.4-11.0 [facility] Comment on above: Performed By: #### L 501.9520, L500.4100, L500.4050, L506.0400, L506.1000 #### [facility] [address] [place], [address] Carbon dioxide, total [Moles /volume] in Central venous bloodOrdered By: Anselmo Gallagher on 11-12-2024 CO2 [Moles/Vol] 26.2 mmol/L 21.0-32.0 [facility] Chloride assayOrdered By: Tessy Gallagher on 11-12-2024 Chloride [Moles/Vol] 102 mmol/L 98-108 [facility] Comprehensive Metabolic Prof ilon 11-12-2024 Albumin [Mass/Vol] 3.5 g/dL Normal 3.4-4.8 [facility] Comment on above: Performed By: #### L 100.0100 #### [facility] [address] [place], [address] Albumin/Globulin [Mass ratio] 0.9 {ratio} Normal 0.9-2.4 [facility] Comment on above: Performed By: #### L 100.0100 #### [facility] [address] [place], [address] ALK PHOS 74 U/L Normal 35-104 [facility] Comment on above: Performed By: #### L 100.0100 #### [facility] [address] [place], [address] ALT [Catalytic activity/Vol] 5 U/L Normal <=34 [facility] Comment on above: Performed By: #### L 100.0100 #### [facility] [address] [place], [address] AST [Catalytic activity/Vol] 7 U/L Normal <=31 [facility] Comment on above: Performed By: #### L 100.0100 #### [facility] [address] [place], [address] Bilirubin [Mass/Vol] 0.33 mg/dL Normal 0.00-1.30 [facility] Comment on above: Performed By: #### L 100.0100 #### [facility] [address] [place], [address] BUN/CRE 11.3 RATIO Normal 10-20 [facility] Comment on above: Performed By: #### L 100.0100 #### [facility] [address] [place], [address] Calcium [Mass/Vol] 9.7 mg/dL Normal 7.6-11.0 [facility] Comment on above: Performed By: #### L 100.0100 #### [facility] [address] [place], [address] Chloride [Moles/Vol] 102 mmol/L Normal 98-108 [facility] Comment on above: Performed By: #### L 100.0100 #### [facility] [address] [place], [address] CO2 [Moles/Vol] 26.2 mmol/L Normal 21.0-32.0 [facility] Comment on above: Performed By: #### L 100.0100 #### [facility] [address] [place], [address] Creatinine [Mass/Vol] 0.93 mg/dL Normal 0.70-1.20 [facility] Comment on above: Performed By: #### L 100.0100 #### [facility] [address] [place], [address] GAP 11 Normal 5-15 [facility] Comment on above: Performed By: #### L 100.0100 #### [facility] [address] [place], [address] GFR/1.73 sq M.predicted among non-blacks MDRD (S/P/Bld) [Vol rate/Area] 67 mL/min/{1.73_m2} Normal >60 [facility] Comment on above: Result Comment: mL/m in/1.73m2 CKD-EPI Creatinine Equation (2020) Performed By: #### L 100.0100 #### [facility] [address] [place], [address] Globulin (S) [Mass/Vol] 4.0 g/dL Normal 2.2-4.2 [facility] Comment on above: Performed By: #### L 100.0100 #### [facility] [address] [place], [address] Glucose [Mass/Vol] 252 mg/dL High 70-99 [facility] Comment on above: Performed By: #### L 100.0100 #### [facility] [address] [place], [address] Potassium [Moles/Vol] 3.9 mmol/L Normal 3.3-5.1 [facility] Comment on above: Performed By: #### L 100.0100 #### [facility] [address] [place], [address] Sodium [Moles/Vol] 139 mmol/L Normal 133-145 [facility] Comment on above: Performed By: #### L 100.0100 #### [facility] [address] [place], [address] T PROT 7.5 g/dL Normal 5.9-8.4 [facility] Comment on above: Performed By: #### L 100.0100 #### [facility] [address] [place], [place], [id number] Urea nitrogen [Mass/Vol] 11 mg/dL Normal 4-19 [facility] Comment on above: Performed By: #### L 100.0100 #### [facility] [address] [place], [address] Eosinophil percentageOrdered By: Anselmo Gallagher on 11-12-2024 Eosinophils/100 WBC (Bld) 1.8 % 0-5 [facility] Erythrocyte Sed Rateon 11-12 SED RATE 73 mm/hr High 0-30 [facility] Comment on above: Performed By: #### L 501.9520, L500.4100, L500.4050, L506.0400, L506.1000 #### [facility] [address] [place], [place], [id number] Erythrocyte distribution wid th ratioOrdered By: Anselmo Gallagher on 11-12-2024 Erythrocyte distribution width (RBC) [Ratio] 17.0 % High 11.6-14.6 [facility] Erythrocyte distribution wid th standard deviationOrdered By: Anselmo Elliott on 11-12-2024 Erythrocyte distribution width (RBC) [Ratio] 52.2 fl High 35.1-43.9 [facility] Erythrocyte folate measureme nt with hematocritOrdered By: Anselmo Gallagher on 11-12-2024 Hematocrit (Bld) [Volume fraction] 33.5 % Low 34.0-46.6 [facility] Erythrocyte sedimentation ra teOrdered By: Anselmo Gallagher on 11-12-2024 ESR (Bld) [Velocity] 73 mm/h High 0-30 [facility] Glomerular filtration rate ( GFR) estimation/1.73 sq m using serum, plasma, or whole bOrdered By: Anselmo Gallagher on 11-12-2024 GFR/1.73 sq M.predicted among non-blacks MDRD (S/P/Bld) [Vol rate/Area] 67 mL/min/{1.73_m2} >60 [facility] Comment on above: mL/min/1.73m2 CKD-EP I Creatinine Equation (2020) Hematocrit Auto (Bld) [Volum e fraction]Ordered By: Anselmo Gallagher on 11-12-2024 Hematocrit (Bld) [Volume fraction] 33.2 % Low 37-47 [facility] Hemoglobin measurementOrdere d By: Anselmo Gallagher on 11-12-2024 Hemoglobin (Bld) [Mass/Vol] 10.2 g/dL Low 12.0-15.0 [facility] Immature granulocytes/100 WB C Auto (Bld)Ordered By: Anselmo Gallagher on 11-12-2024 Immature granulocytes/100 WBC (Bld) 0.200 % 0.0-0.9 [facility] Comment on above: IG% - Immature Granu locytes (promyelocytes, myelocytes and metamyelocytes) > 1% indicates that a LEFT SHIFT is Present. Iron measurement (mass/mass) Ordered By: Anselmo Gallagher on 11-12-2024 Iron (Unsp spec) [Mass/Mass] 22 ug/dL Low 50-170 [facility] Iron+Iron Binding Capacityon 11-12-2024 TIBC 176 ug/dL Low 250-450 [facility] Comment on above: Performed By: #### L 100.0100 #### [facility] [address] [facility] [place], [address] LDHon 11-12-2024 LDH 157 U/L Normal 84-246 [facility] Comment on above: Order Comment: 1 Performed By: #### L 501.9520, L500.4100, L500.4050, L506.0400, L506.1000 #### [facility] [address] [place], [address] Laboratory - Chemistry and C hemistry - challengeOrdered By: Anselmo Gallagher on 11-12-2024 AST [Catalytic activity/Vol] 7 U/L <32 [facility] Lactate dehydrogenase (LDH) measurementOrdered By: Anselmo Gallagher on 11-12-2024 LDH [Catalytic activity/Vol] 157 U/L 84-246 [facility] MCV (mean corpuscular volume ) determinationOrdered By: Anselmo Gallagher on 11-12-2024 MCV (RBC) [Entitic vol] 84.5 fL 81-99 [facility] Magnesiumon 11-12-2024 Magnesium [Mass/Vol] 2.1 mg/dL Normal 1.5-2.2 [facility] Comment on above: Performed By: #### L 100.0100 #### [facility] [place], [address] Magnesium measurement (mass/ volume)Ordered By: Anselmo Gallagher on 11-12-2024 Magnesium (Unsp spec) [Mass/Vol] 2.1 mg/dL 1.5-2.2 [facility] Mean corpuscular hemoglobin (MCH) determinationOrdered By: Anselmo Gallagher on 11-12-2024 MCH (RBC) [Entitic mass] 26.0 pg Low 27.0-32.0 [facility] Mean corpuscular hemoglobin concentration (MCHC) determinationOrdered By: Anselmo Gallagher on 11-12-2024 MCHC (RBC) [Mass/Vol] 30.7 g/dL Low 32-36 [facility] Mean platelet volume determi nationOrdered By: Anselmo Gallagher on 11-12-2024 Platelet mean volume (Bld) [Entitic vol] 9.9 fL 6.2-12.0 [facility] Monocyte percentageOrdered B y: Anselmo Gallagher on 11-12-2024 Monocytes/100 WBC (Bld) 6.7 % 0-10 [facility] Neutrophil percentageOrdered By: Anselmo Gallagher on 11-12-2024 Neutrophils/100 WBC (Bld) 70.8 % High 47-70 [facility] No Panel InformationOrdered By: Anselmo Gallagher on 11-12-2024 Unsaturated Iron Binding Capacity 154 ug/dL Low 228-428 [facility] Nucleated red blood cell per centageOrdered By: Anselmo Gallagher on 11-12-2024 Nucleated RBC/100 WBC (Bld) [Ratio] 0 % 0-5 [facility] Phosphoruson 11-12-2024 Phosphate [Mass/Vol] 2.3 mg/dL Low 2.7-4.5 [facility] Comment on above: Performed By: #### L 501.9520, L500.4100, L500.4050, L506.0400, L506.1000 #### [facility] [address] [place], [address] Platelet countOrdered By: Tessy Gallagher on 11-12-2024 Platelets (Bld) [#/Vol] 507 10*3/uL High 150-450 [facility] Potassium measurement (mass/ volume)Ordered By: Anselmo Gallagher on 11-12-2024 Potassium (Unsp spec) [Mass/Vol] 3.9 mmol/L 3.3-5.1 [facility] RBC Auto (Bld) [#/Vol]Ordere d By: Anselmo Gallagher on 11-12-2024 RBC (Bld) [#/Vol] 3.93 10*6/uL Low 4.2-5.4 [facility] Retic Panelon 11-12-2024 IM RET FRACTION 21.40 High 3.00-15.90 [facility] Comment on above: Performed By: #### L 501.9520, L500.4100, L500.4050, L506.0400, L506.1000 #### [facility] [address] [place], [address] RET-HE 24.5 pg Low 30-35 [facility] Comment on above: Performed By: #### L 501.9520, L500.4100, L500.4050, L506.0400, L506.1000 #### [facility] [address] [place], [address] Retic Count 1.66 High 0.5-1.5 [facility] Comment on above: Performed By: #### L 501.9520, L500.4100, L500.4050, L506.0400, L506.1000 #### [facility] [address] [place], [address] Reticulocyte hemoglobin equi valent (RET-He) measurementOrdered By: Anselmo Gallagher on 11-12-2024 Hemoglobin (Reticulocytes) [Entitic mass] 24.5 pg Low 30-35 [facility] Reticulocytes Auto (Bld) [#/ Vol]Ordered By: Anselmo Gallagher on 11-12-2024 Reticulocytes/100 RBC (Bld) 1.66 % High 0.5-1.5 [facility] Serum creatinine measurement (mass/volume)Ordered By: Anselmo Gallagher on 11-12-2024 Creatinine [Mass/Vol] 0.93 mg/dL 0.70-1.20 [facility] Serum globulin measurementOr dered By: Anselmo Gallagher on 11-12-2024 Globulin (S) [Mass/Vol] 4.0 g/dL 2.2-4.2 [facility] Serum glucose measurement (m ass/volume)Ordered By: Anselmo Gallagher on 11-12-2024 Glucose [Mass/Vol] 252 mg/dL High 70-99 [facility] Serum or plasma alanine lloyd otransferase (ALT) measurementOrdered By: Anselmo Gallagher on 11-12-2024 ALT [Catalytic activity/Vol] 5 U/L <35 [facility] Serum or plasma albumin akanksha urement (mass/volume)Ordered By: Anselmo Gallagher on 11-12-2024 Albumin [Mass/Vol] 3.5 g/dL 3.4-4.8 [facility] Serum or plasma albumin/glob ulin mass ratioOrdered By: Anselmo Gallagher on 11-12-2024 Albumin/Globulin [Mass ratio] 0.9 {ratio} 0.9-2.4 [facility] Serum or plasma alkaline fern sphatase measurementOrdered By: Anselmo Gallagher on 11-12-2024 ALP [Catalytic activity/Vol] 74 U/L 35-104 [facility] Serum or plasma calcium akanksha urement (mass/volume)Ordered By: Anselmo Gallagher on 11-12-2024 Calcium [Mass/Vol] 9.7 mg/dL 7.6-11.0 [facility] Serum or plasma erythropoiet in (EPO) measurement (units/volume)Ordered By: Anselmo Gallagher on 11-12-2024 Erythropoietin (EPO) Qn 43.8 mIU/mL High 2.6-18.5 [facility] Comment on above: [employer] el DxI 800 Immunoassay SystemValues obtained with different assay methods or kits cannotbe used interchangeably. Results cannot be interpreted asabsolute evidence of the presence or absence of malignantdisease.Performed at: - [facility] [id number] Director: Regan Bird PhD, Phone: [phone] Serum or plasma iron saturat ion measurement (mass fraction)Ordered By: Anselmo Gallagher on 11-12-2024 Iron saturation [Mass fraction] 12.5 % Low 13-59 [facility] Comment on above: Previous reported re sult: 12.0 %Edited by: OTTONIEL on 11/12/24:1100 AMENDED REPORT 11/12/24 1100 IRON SATURATION previously reported as: 12.0 L % Serum or plasma urea nitroge n measurement (mass/volume)Ordered By: Anselmo Gallagher on 11-12-2024 Urea nitrogen [Mass/Vol] 11 mg/dL 4-19 [facility] Sodium levelOrdered By: Osiel Gallagher on 11-12-2024 Sodium [Moles/Vol] 139 mmol/L 133-145 [facility] Total proteinOrdered By: Herman Gallagher on 11-12-2024 Protein [Mass/Vol] 7.5 g/dL 5.9-8.4 [facility] Vitamin B12on 11-12-2024 Cobalamin (Vitamin B12) [Mass/Vol] 386 pg/mL Normal 180-914 [facility] Comment on above: Performed By: #### L 100.0100 #### [facility] Laboratory [facility] [place], [address] Vitamin B12 ser/plasOrdered By: Anselmo Gallagher on 11-12-2024 Cobalamin (Vitamin B12) [Mass/Vol] 386 pg/mL 180-914 [facility] White blood cell (WBC) count Ordered By: Anselmo Gallagher on 11-12-2024 WBC (Bld) [#/Vol] 9.5 10*3/uL 4.4-11.0 [facility] Internal Medicine Office Vis shoaib 11-04-2024 Internal Medicine Office Visit [facility] [address] [place] [address] [place] [address] OFFICE VISIT Date of Service: 11/04/24 MR#: [id number] Acct: [id number] Name: KIRILL ALMAZAN Rep #: [id number] : 1955 Provider: Dr. Maricarmen brothers MD Age/Sex: 69/F Location: 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 Required: No Accompanied by: Self Is patient in pain?: No Allergies adhesive Allergy (Mild, Verified 11/04/24 10:20) Hives meperidine (From Demerol) Adverse Reaction (Unknown, Verified 11/04/24 10:20) Vomiting Medications ???Medication ???Instructions ???Recorded ???Confirmed ???Type psyllium husk 0.4 gram capsule 0.4 g PO DAILY 10/21/23 11/04/24 H istory (Metamucil) FreeStyle Azucena 3 Sensor #2 ea 01/20/24 09/08/24 Rx (blood-glucose sensor) insulin glargine 100 unit/mL (3 18 unit (0.18 mL) subcut QHS #15 m L 01/20/24 11/04/24 Rx mL) subcutaneous pen insulin lispro 100 unit/mL 35 unit (0.35 mL) subcut TID #96 m L 01/20/24 11/04/24 Rx subcutaneous pen (Humalog KwikPen (U-100) Insulin) metoprolol succinate 50 mg 50 mg PO DAILY #90 tabs 04/15/24 0 11/04/24 Rx tablet,extended release 24 hr pen needle, diabetic 32 gauge x #400 ea 05/11/24 09/08/24 Rx 5/32 (BD Ultra-Fine Ale Pen Needle) atorvastatin 10 mg tablet 10 mg PO DAILY #90 tabs 08/11/24 0 11/04/24 Rx biotin 1 mg capsule 1 mg PO QDAY 09/08/24 11/04/24 His tory cholecalciferol (vitamin D3) 25 25 mcg PO QDAY 09/08/24 11/04/24 H istory mcg (1,000 unit) capsule empagliflozin 25 mg tablet 25 mg PO QDAY #90 tabs 09/08/24 Rx (Jardiance) levocetirizine 5 mg tablet (Xyzal) 5 mg PO QDAY 09/08/24 11/04/24 H istory mecobalamin (vitamin B12) 1,000 1,000 mcg PO QDAY 09/08/24 5 History mcg chewable tablet polysaccharide iron complex 150 mg 150 mg PO ONCE #90 caps 09/15/24 11/04/24 Rx iron capsule (Ferrex) amlodipine 10 mg tablet 10 mg PO DAILY #90 tabs 10/06/24 0 11/04/24 Rx paroxetine HCl 10 mg tablet 10 mg PO DAILY #90 tabs 10/06/24 0 11/04/24 Rx Have you fallen in the past year?: No PFSH Medical History Iron deficiency anemia Anemia Chronic cough Flu vaccine need Cardiology follow-up encounter History of echocardiogram History of stress test Diabetes FH: sudden cardiac (SCD) Retinal hemorrhage, right eye Hyperopia of both eyes with regular astigmatism and presbyopia Epiretinal membrane (ERM) of left eye Combined forms of age-related cataract, bilateral Venous insufficiency of both lower extremities Insulin dependent diabetes mellitus Kidney stones Injury of head and neck Leg cramps Anxiety and depression Osteoarthritis of knee Meralgia paresthetica of left side Sacroiliitis Sebaceous cyst of breast Axillary adenopathy Radial scar of right breast Mixed hyperlipidemia Diabetes type 2, controlled Brain bleed History of kidney stones Migraine Breast lump Arthritis Seasonal allergic rhinitis Surgical History Hx of colonoscopy History of total knee replacement (TKR) History of excision of epidermal inclusion cyst S/P lumpectomy, right breast S/P breast biopsy, left Hx of knee surgery Hx of hand surgery Hx of tubal ligation History of Family History Mother Breast cancer Arthritis Father Arthritis Diabetes Hypertension High cholesterol Lung cancer Brother Asthma Prostate cancer Sister Sudden cardiac Social History household members: spouse current occupational status: retired Smoking Status: Never smoker second hand exposure: No alcohol intake: current alcohol intake frequency: holidays/special occasions only substance use type: does not use what type of physical activity do you participate in: walking frequency: 1-2 times per week seatbelt use: always HPI HPI Chief Complaint: FU Chronic Conditions Details: KIRILL ALMAZAN, is a 69-year-old female presenting with concerns related to iron deficiency anemia and a chronic cough. She reports an improvement in fatigue since starting iron supplements but remains uncertain if her iron levels have normalized. Chronic history of anemia characterized by high ferritin levels, which prompt (more content not included)... Normal [facility] Breast imaging reportOrdered By: Leeann Enriquez on 09-25-2024 Study report [facility] Imaging Services [address] [place] [place], [place] [address] SCRN MAMM (CAD)W/CHRIS BILAT MR#: [id number] Acct: [id number] Name: KIRILL ALMAZAN Rep #: [id number] : 1955 F 69 From: Torrie Enriquez MD PCP: Dr. Maricarmen Tavares MD Status: R EG CLI Study:SCRN MAMM (CAD)W/CHRIS BILAT Date of Exa m: 09/25/24 Exam# [id number] Ordering Dr: Davidson Metz i, MD EXAM: SCRN MAMM (CAD)W/CHRIS BILAT DATE: 09/25/2024 CLINICAL HISTORY: F, Age 69 y/o , SCREENING TECHNIQUE: SCRN MAMM (CAD)W/CHRIS BILAT COMPARISON: Prior exam(s) dated 05/22/2023, 04/23/2022, 02/22/2021. FINDINGS: TISSUE DENSITY: There are scattered areas of fibroglandular density. Bilateral Breast Mammographic Findings: No significant masses, calcifications or other abnormalities are identified. BI/SCRN MAMM (CAD)W/CHRIS BILAT IMPRESSION: There is no mammographic evidence of malignancy. OVERALL FINAL ASSESSMENT BI-RADS 1: NEGATIVE. RECOMMENDATION: Routine annual follow-up in 1 Year A letter with findings and recommendations will be mailed to the patient. Reading Location: [facility] CC: Dr. Maricarmen Tavares MD; Dr. Steve Metz MD ~ [employer] Orientator: Signed [facility] SCRN MAMM (CAD)W/CHRIS BILATo n 09-25-2024 SCRN MAMM (CAD)W/CHRIS BILAT [facility] Imaging Services [address] [place] [address] SCRN MAMM (CAD)W/CHRIS BILAT MR#: [id number] Acct: [id number] Name: KIRILL ALMAZAN Rep #: [id number] : 1955 F 69 From: Leeann Enriquez MD PCP: Dr. Maricarmen Tavares MD Status: [facility] CLI Study: SCRN MAMM (CAD)W/CHRIS BILAT Date of Exam: 09/08 11/02 Exam# [id number] Ordering Dr: Steve Metz MD EXAM: SCRN MAMM (CAD)W/CHRIS BILAT DATE: 09/25/2024 CLINICAL HISTORY: F, Age 69 y/o , SCREENING TECHNIQUE: SCRN MAMM (CAD)W/CHRIS BILAT COMPARISON: Prior exam(s) dated 05/22/2023, 04/23/2022, 02/22/2021. FINDINGS: TISSUE DENSITY: There are scattered areas of fibroglandular density. Bilateral Breast Mammographic Findings: No significant masses, calcifications or other abnormalities are identified. BI/SCRN MAMM (CAD)W/CHRIS BILAT IMPRESSION: There is no mammographic evidence of malignancy. OVERALL FINAL ASSESSMENT BI-RADS 1: NEGATIVE. RECOMMENDATION: Routine annual follow-up in 1 Year A letter with findings and recommendations will be mailed to the patient. Reading Location: [facility] CC: Dr. Maricarmen Tavares MD; Dr. Steve Metz MD [employer] Orientator: Signed Normal [facility] Erythropoietinon 09-17-2024 ERYTHROPOIETIN 46.6 mIU/mL High 2.6-18.5 [facility] Comment on above: Result Comment: [employer] DxI 800 Immunoassay System Values obtained with different assay methods or kits cannot be used interchangeably. Results cannot be interpreted as absolute evidence of the presence or absence of malignant disease. Performed at: [facility] [id number] Property Maintenance Technician: Regan Bird PhD, Phone: [phone] Performed By: #### L 501.9520, L500.4100, L500.4050, L506.0400, L506.1000 #### [facility] Laboratory [address] [place], [place], [phone] ([address]) Folates, RBCon 09-17-2024 Fol.,Hemolysate 464.0 ng/mL Normal Not Estab. [facility] Comment on above: Performed By: #### L 501.9520, L500.4100, L500.4050, L506.0400, L506.1000 #### [facility] [address] [place], [place], [phone] (394) Folate, RBC 1385 ng/mL Normal >498 [facility] Comment on above: Result Comment: Perf ormed at: [facility] [address] [place] [id number] Property Maintenance Technician: Regan Bird PhD, Phone: [phone] Performed By: #### L 501.9520, L500.4100, L500.4050, L506.0400, L506.1000 #### [facility] [address] [place], [place], [phone] ([address]) Hematocrit (Bld) [Volume fraction] 33.5 % Low 34.0-46.6 [facility] Comment on above: Performed By: #### L 501.9520, L500.4100, L500.4050, L506.0400, L506.1000 #### [facility] [address] [place], [address] Iron+Iron Binding Capacityon 09-16-2024 TIBC 208 ug/dL Low 250-450 [facility] Comment on above: Performed By: #### L 503.6030, L503.0106, L501.5200, L500.4050, L3100.1725 #### [facility] [address] [place], [address] LDHon 09-16-2024 LDH 150 U/L Normal 84-246 [facility] Comment on above: Order Comment: 1 Performed By: #### L 501.9520, L500.4100, L500.4050, L506.0400, L506.1000 #### [facility] [address] [place], [address] Absolute lymphocyte countOrd ered By: Anselmo Gallagher on 09-15-2024 Lymphocytes Auto (Unsp spec) [#/Vol] 2.53 10*3/uL 0.83-4.51 [facility] Absolute neutrophil countOrd ered By: Anselmo Gallagher on 09-15-2024 Neutrophils (Bld) [#/Vol] 6.8 10*3/uL 2.0-7.7 [facility] Anion gap in Serum or Plasma Ordered By: Anselmo Gallagher on 09-15-2024 Anion gap [Moles/Vol] 13 mmol/L 5-15 [facility] Automated lymphocyte count a s percentage of total leukocytesOrdered By: Anselmo Gallagher on 09-15-2024 Lymphocytes/100 WBC Auto (Unsp spec) 24.2 % 19-41 [facility] BUN/creatinine ratioOrdered By: Anselmo Gallagher on 09-15-2024 Urea nitrogen/Creatinine [Mass ratio] 16.7 mg/mg 10-20 [facility] Basophil percentageOrdered B y: Anselmo Gallagher on 09-15-2024 Basophils/100 WBC (Bld) 0.4 % 0-1 [facility] Bilirubin, totalOrdered By: Anselmo Gallagher on 09-15-2024 Bilirubin [Mass/Vol] 0.23 mg/dL 0.00-1.30 [facility] CBC W/Diff, Automatedon 07-0 8-2025 Absolute Lymph 2.53 X10 3/uL Normal 0.83-4.51 [facility] Comment on above: Performed By: #### L 501.9520, L500.4100, L500.4050, L506.0400, L506.1000 #### [facility] [address] [place], [address] Absolute Neut 6.8 X10 3/uL Normal 2.0-7.7 [facility] Comment on above: Performed By: #### L 501.9520, L500.4100, L500.4050, L506.0400, L506.1000 #### [facility] [address] [place], [address] Basophils/100 WBC (Bld) 0.4 % Normal 0-1 [facility] Comment on above: Performed By: #### L 501.9520, L500.4100, L500.4050, L506.0400, L506.1000 #### [facility] [address] [place], [address] Eosinophils/100 WBC (Bld) 1.3 % Normal 0-5 [facility] Comment on above: Performed By: #### L 501.9520, L500.4100, L500.4050, L506.0400, L506.1000 #### [facility] [address] [place], [address] Erythrocyte distribution width (RBC) [Ratio] 16.4 % High 11.6-14.6 [facility] Comment on above: Performed By: #### L 501.9520, L500.4100, L500.4050, L506.0400, L506.1000 #### [facility] [address] [place], [address] Hematocrit (Bld) [Volume fraction] 33.2 % Low 37-47 [facility] Comment on above: Performed By: #### L 501.9520, L500.4100, L500.4050, L506.0400, L506.1000 #### [facility] [address] [place], [address] Hemoglobin (Bld) [Mass/Vol] 10.2 g/dL Low 12.0-15.0 [facility] Comment on above: Performed By: #### L 501.9520, L500.4100, L500.4050, L506.0400, L506.1000 #### [facility] [address] [place], [address] IG% 0.400 Normal 0.0-0.9 [facility] Comment on above: Result Comment: IG% - Immature Granulocytes (promyelocytes, myelocytes and metamyelocytes) > 1% indicates that a LEFT SHIFT is Present. Performed By: #### L 501.9520, L500.4100, L500.4050, L506.0400, L506.1000 #### [facility] [address] [place], [address] Lymphocytes/100 WBC (Bld) 24.2 % Normal 19-41 [facility] Comment on above: Performed By: #### L 501.9520, L500.4100, L500.4050, L506.0400, L506.1000 #### [facility] [address] [place], [address] MCH (RBC) [Entitic mass] 26.1 pg Low 27.0-32.0 [facility] Comment on above: Performed By: #### L 501.9520, L500.4100, L500.4050, L506.0400, L506.1000 #### [facility] [address] [place], [address] MCHC (RBC) [Mass/Vol] 30.7 g/dL Low 32-36 [facility] Comment on above: Performed By: #### L 501.9520, L500.4100, L500.4050, L506.0400, L506.1000 #### [facility] [address] [place], [address] MCV (RBC) [Entitic vol] 84.9 fL Normal 81-99 [facility] Comment on above: Performed By: #### L 501.9520, L500.4100, L500.4050, L506.0400, L506.1000 #### [facility] [address] [place], [address] Monocytes/100 WBC (Bld) 8.3 % Normal 0-10 [facility] Comment on above: Performed By: #### L 501.9520, L500.4100, L500.4050, L506.0400, L506.1000 #### [facility] [address] [place], [address] Neutrophils/100 WBC (Bld) 65.4 % Normal 47-70 [facility] Comment on above: Performed By: #### L 501.9520, L500.4100, L500.4050, L506.0400, L506.1000 #### [facility] [address] [place], [address] Nucleated RBC (Bld) [#/Vol] 0 10*3/uL Normal 0-5 [facility] Comment on above: Performed By: #### L 501.9520, L500.4100, L500.4050, L506.0400, L506.1000 #### [facility] [address] [place], [address] Platelet mean volume (Bld) [Entitic vol] 10.2 fL Normal 6.2-12.0 [facility] Comment on above: Performed By: #### L 501.9520, L500.4100, L500.4050, L506.0400, L506.1000 #### [facility] [address] [place], [address] Platelets (Bld) [#/Vol] 495 10*3/uL High 150-450 [facility] Comment on above: Performed By: #### L 501.9520, L500.4100, L500.4050, L506.0400, L506.1000 #### [facility] [address] [place], [address] RBC (Bld) [#/Vol] 3.91 10*6/uL Low 4.2-5.4 [facility] Comment on above: Performed By: #### L 501.9520, L500.4100, L500.4050, L506.0400, L506.1000 #### [facility] [address] [place], [address] RDW SD 51.0 fl High 35.1-43.9 [facility] Comment on above: Performed By: #### L 501.9520, L500.4100, L500.4050, L506.0400, L506.1000 #### [facility] [address] [place], [address] WBC (Bld) [#/Vol] 10.4 10*3/uL Normal 4.4-11.0 [facility] Comment on above: Performed By: #### L 501.9520, L500.4100, L500.4050, L506.0400, L506.1000 #### [facility] [address] [place], [address] Carbon dioxide, total [Moles /volume] in Central venous bloodOrdered By: Anselmo Gallagher on 09-15-2024 CO2 [Moles/Vol] 24.6 mmol/L 21.0-32.0 [facility] Chloride assayOrdered By: Tessy Gallagher on 07-08-2025 Chloride [Moles/Vol] 101 mmol/L 98-108 [facility] Comprehensive Metabolic Prof ilon 09-15-2024 Albumin [Mass/Vol] 3.6 g/dL Normal 3.4-4.8 [facility] Comment on above: Performed By: #### L 503.6030, L503.0106, L501.5200, L500.4050, L3100.1725 #### [facility] [address] [place], [address] Albumin/Globulin [Mass ratio] 0.8 {ratio} Low 0.9-2.4 [facility] Comment on above: Performed By: #### L 503.6030, L503.0106, L501.5200, L500.4050, L3100.1725 #### [facility] [address] [place], [address] ALK PHOS 87 U/L Normal 35-104 [facility] Comment on above: Performed By: #### L 503.6030, L503.0106, L501.5200, L500.4050, L3100.1725 #### [facility] [address] [place], [address] ALT [Catalytic activity/Vol] 11 U/L Normal <=34 [facility] Comment on above: Performed By: #### L 503.6030, L503.0106, L501.5200, L500.4050, L3100.1725 #### [facility] [address] [place], [address] AST [Catalytic activity/Vol] 14 U/L Normal <=31 [facility] Comment on above: Performed By: #### L 503.6030, L503.0106, L501.5200, L500.4050, L3100.1725 #### [facility] [address] [place], [address] Bilirubin [Mass/Vol] 0.23 mg/dL Normal 0.00-1.30 [facility] Comment on above: Performed By: #### L 503.6030, L503.0106, L501.5200, L500.4050, L3100.1725 #### [facility] [address] [place], [address] BUN/CRE 16.7 RATIO Normal 10-20 [facility] Comment on above: Performed By: #### L 503.6030, L503.0106, L501.5200, L500.4050, L3100.1725 #### [facility] [address] [place], [address] Calcium [Mass/Vol] 9.9 mg/dL Normal 7.6-11.0 [facility] Comment on above: Performed By: #### L 503.6030, L503.0106, L501.5200, L500.4050, L3100.1725 #### [facility] [address] [place], [address] Chloride [Moles/Vol] 101 mmol/L Normal 98-108 [facility] Comment on above: Performed By: #### L 503.6030, L503.0106, L501.5200, L500.4050, L3100.1725 #### [facility] [address] [place], [address] CO2 [Moles/Vol] 24.6 mmol/L Normal 21.0-32.0 [facility] Comment on above: Performed By: #### L 503.6030, L503.0106, L501.5200, L500.4050, L3100.1725 #### [facility] [address] [place], [address] Creatinine [Mass/Vol] 1.01 mg/dL Normal 0.70-1.20 [facility] Comment on above: Performed By: #### L 503.6030, L503.0106, L501.5200, L500.4050, L3100.1725 #### [facility] [address] [place], [address] GAP 13 Normal 5-15 [facility] Comment on above: Performed By: #### L 503.6030, L503.0106, L501.5200, L500.4050, L3100.1725 #### [facility] [address] [place], [address] GFR/1.73 sq M.predicted among non-blacks MDRD (S/P/Bld) [Vol rate/Area] 61 mL/min/{1.73_m2} Normal >60 [facility] Comment on above: Result Comment: mL/m in/1.73m2 CKD-EPI Creatinine Equation (2020) Performed By: #### L 503.6030, L503.0106, L501.5200, L500.4050, L3100.1725 #### [facility] [address] [place], [address] Globulin (S) [Mass/Vol] 4.2 g/dL Normal 2.2-4.2 [facility] Comment on above: Performed By: #### L 503.6030, L503.0106, L501.5200, L500.4050, L3100.1725 #### [facility] [address] [place], [address] Glucose [Mass/Vol] 140 mg/dL High 70-99 [facility] Comment on above: Performed By: #### L 503.6030, L503.0106, L501.5200, L500.4050, L3100.1725 #### [facility] [address] [place], [address] Potassium [Moles/Vol] 4.1 mmol/L Normal 3.3-5.1 [facility] Comment on above: Performed By: #### L 503.6030, L503.0106, L501.5200, L500.4050, L3100.1725 #### [facility] [address] [place], [address] Sodium [Moles/Vol] 138 mmol/L Normal 133-145 [facility] Comment on above: Performed By: #### L 503.6030, L503.0106, L501.5200, L500.4050, L3100.1725 #### [facility] [address] [place], [address] T PROT 7.8 g/dL Normal 5.9-8.4 [facility] Comment on above: Performed By: #### L 503.6030, L503.0106, L501.5200, L500.4050, L3100.1725 #### [facility] [address] [place], [address] Urea nitrogen [Mass/Vol] 17 mg/dL Normal 4-19 [facility] Comment on above: Performed By: #### L 503.6030, L503.0106, L501.5200, L500.4050, L3100.1725 #### [facility] [address] [place], [address] Eosinophil percentageOrdered By: Anselmo Gallagher on 09-15-2024 Eosinophils/100 WBC (Bld) 1.3 % 0-5 [facility] Erythrocyte Sed Rateon 09-15 SED RATE 94 mm/hr High 0-30 [facility] Comment on above: Performed By: #### L 501.9520, L500.4100, L500.4050, L506.0400, L506.1000 #### [facility] [address] [place], [address] Erythrocyte distribution wid th ratioOrdered By: Anselmo Gallagher on 09-15-2024 Erythrocyte distribution width (RBC) [Ratio] 16.4 % High 11.6-14.6 [facility] Erythrocyte distribution wid th standard deviationOrdered By: Anselmo Gallagher on 09-15-2024 Erythrocyte distribution width (RBC) [Ratio] 51.0 fl High 35.1-43.9 [facility] Erythrocyte folate measureme nt with hematocritOrdered By: Anselmo Gallagher on 09-15-2024 Hematocrit (Bld) [Volume fraction] 33.5 % Low 34.0-46.6 [facility] Erythrocyte sedimentation ra teOrdered By: Anselmo Gallagher on 09-15-2024 ESR (Bld) [Velocity] 94 mm/h High 0-30 [facility] Ferritinon 09-15-2024 Ferritin [Mass/Vol] 866 ng/mL High 22-378 [facility] Comment on above: Performed By: #### L 501.9520, L500.4100, L500.4050, L506.0400, L506.1000 #### [facility] [address] [facility] [place], [address] Glomerular filtration rate ( GFR) estimation/1.73 sq m using serum, plasma, or whole bOrdered By: Anselmo Adriel on 09-15-2024 GFR/1.73 sq M.predicted among non-blacks MDRD (S/P/Bld) [Vol rate/Area] 61 mL/min/{1.73_m2} >60 [facility] Comment on above: mL/min/1.73m2 CKD-EP I Creatinine Equation (2020) Hematocrit Auto (Bld) [Volum e fraction]Ordered By: Anselmo Gallagher on 09-15-2024 Hematocrit (Bld) [Volume fraction] 33.2 % Low 37-47 [facility] Hemoglobin measurementOrdere d By: Anselmo Gallagher on 09-15-2024 Hemoglobin (Bld) [Mass/Vol] 10.2 g/dL Low 12.0-15.0 [facility] Immature granulocytes/100 WB C Auto (Bld)Ordered By: Anselmo Gallagher on 09-15-2024 Immature granulocytes/100 WBC (Bld) 0.400 % 0.0-0.9 [facility] Comment on above: IG% - Immature Granu locytes (promyelocytes, myelocytes and metamyelocytes) > 1% indicates that a LEFT SHIFT is Present. Iron measurement (mass/mass) Ordered By: Anselmo Gallagher on 09-15-2024 Iron (Unsp spec) [Mass/Mass] 21 ug/dL Low 50-170 [facility] - Chemistry and C hemistry - challengeOrdered By: Anselmo Gallagher on 09-15-2024 AST [Catalytic activity/Vol] 14 U/L <32 [facility] Lactate dehydrogenase (LDH) measurementOrdered By: Anselmo Gallagher on 09-15-2024 LDH [Catalytic activity/Vol] 150 U/L 84-246 [facility] MCV (mean corpuscular volume ) determinationOrdered By: Anselmo Gallagher on 09-15-2024 MCV (RBC) [Entitic vol] 84.9 fL 81-99 [facility] Magnesiumon 09-15-2024 Magnesium [Mass/Vol] 2.3 mg/dL High 1.5-2.2 [facility] Comment on above: Performed By: #### L 503.6030, L503.0106, L501.5200, L500.4050, L3100.1725 #### [facility] [address] [place], [address] Magnesium measurement (mass/ volume)Ordered By: Anselmo Gallagher on 09-15-2024 Magnesium (Unsp spec) [Mass/Vol] 2.3 mg/dL High 1.5-2.2 [facility] Mean corpuscular hemoglobin (MCH) determinationOrdered By: Anselmo Gallagher on 09-15-2024 MCH (RBC) [Entitic mass] 26.1 pg Low 27.0-32.0 [facility] Mean corpuscular hemoglobin concentration (MCHC) determinationOrdered By: Anselmo Gallagher on 09-15-2024 MCHC (RBC) [Mass/Vol] 30.7 g/dL Low 32-36 [facility] Mean platelet volume determi nationOrdered By: Anselmo Gallagher on 09-15-2024 Platelet mean volume (Bld) [Entitic vol] 10.2 fL 6.2-12.0 [facility] Monocyte percentageOrdered B y: Anselmo Gallagher on 09-15-2024 Monocytes/100 WBC (Bld) 8.3 % 0-10 [facility] Neutrophil percentageOrdered By: Anselmo Gallagher on 09-15-2024 Neutrophils/100 WBC (Bld) 65.4 % 47-70 [facility] No Panel InformationOrdered By: Anselmo Gallagher on 09-15-2024 Unsaturated Iron Binding Capacity 187 ug/dL Low 228-428 [facility] Nucleated red blood cell per centageOrdered By: Anselmo Gallagher on 09-15-2024 Nucleated RBC/100 WBC (Bld) [Ratio] 0 % 0-5 [facility] Oncology Visit Reporton 07-0 Oncology Visit Report [facility] [address] [place] [address] OFFICE VISIT Date of Service: 09/15/24 1318 MR#: [id number] Acct: [id number] Name: KIRILL ALMAZAN Rep #: [id number] : 1955 From: Anselmo Gallagher MD Age/Sex: 69/F [place] [facility] [place]: Signed HPI Subjective Date of Service 09/15/24 Chief Complaint Referred for Iron deficiency anemia. History of Present Illness 69-year-old woman was found to have iron deficiency anemia. She started iron rich food for 2 months but hemoglobin remained stable so referred for further evaluation. She has hemorrhoids which has not been bleeding for a long time. She has not taken oral iron pills. [facility]LY [facility] Medical History Iron deficiency anemia Anemia Chronic cough Flu vaccine need Cardiology follow-up encounter History of echocardiogram History of stress test Diabetes FH: sudden cardiac (SCD) Retinal hemorrhage, right eye Hyperopia of both eyes with regular astigmatism and presbyopia Epiretinal membrane (ERM) of left eye Combined forms of age-related cataract, bilateral Venous insufficiency of both lower extremities Insulin dependent diabetes mellitus Kidney stones Injury of head and neck Leg cramps Anxiety and depression Osteoarthritis of knee Meralgia paresthetica of left side Sacroiliitis Sebaceous cyst of breast Axillary adenopathy Radial scar of right breast Mixed hyperlipidemia Diabetes type 2, controlled Brain bleed History of kidney stones Migraine Breast lump Arthritis Seasonal allergic rhinitis Surgical History Hx of colonoscopy History of total knee replacement (TKR) History of excision of epidermal inclusion cyst S/P lumpectomy, right breast S/P breast biopsy, left Hx of knee surgery Hx of hand surgery Hx of tubal ligation History of Family History Mother Breast cancer Arthritis Father Arthritis Diabetes Hypertension High cholesterol Lung cancer Brother Asthma Prostate cancer Sister Sudden cardiac Social History household members: spouse current occupational status: retired Smoking Status: Never smoker second hand exposure: No alcohol intake: current alcohol intake frequency: holidays/special occasions only substance use type: does not use what type of physical activity do you participate in: walking frequency: 1-2 times per week seatbelt use: always ROS Constitutional Constitutional: Reports systems reviewed and no addt'l complaints, except as documented Eyes Eyes: Reports systems reviewed and no addt'l complaints, except as documented ENT HEENT: Reports systems reviewed and no addt'l complaints, except as documented Cardiovascular Cardiovascular: Reports systems reviewed and no addt'l complaints, except as documented Respiratory/Chest Respiratory/Chest: Reports systems reviewed and no addt'l complaints, except as documented Gastrointestinal Gastrointestinal: Reports systems reviewed and no addt'l complaints, except as documented Genitourinary Genitourinary: Reports systems reviewed and no addt'l complaints, except as documented Musculoskeletal Musculoskeletal: Reports systems reviewed and no addt'l complaints, except as documented Integumentary Integumentary: Reports systems reviewed and no addt'l complaints, except as documented Neurologic Neurologic: Reports systems reviewed and no addt'l complaints, except as documented Psychiatric Psychiatric: Reports systems reviewed and no addt'l complaints, except as documented Endocrine Endocrinology: Reports systems reviewed and no addt'l complaints, except as documented Hematologic/Lymphat ic Hematologic/Lymphat ic: Reports systems reviewed and no addt'l complaints, except as documented Allergic/Immunologi c Allergic/Immunologi c: Reports systems reviewed and no addt'l complaints, except as documented Intake Vital Signs 09/08/24 13:05 09/15/24 13:23 09/15/24 13:24 Height 5 ft 2 in 5 ft 2 in 5 ft 2 in Weight: 109.316 kg 108.579 kg BMI 44.0 43.7 BP 127/84 H 127/70 H Blood Pressure Location Rt brachial Lt brachial Position Sitting Sitting Respiration 18 Pulse 84 83 Pulse Source Monitor Monitor Temp 98.5 F Temperature Source Temporal Artery Pulse Oximetry (%) 94 95 Oxygen Delivery Method room air room air Intake Accompanied by: Is patient in pain?: No Allergies adhesive Allergy (Mild, Verified 09/15/24 13:21) Hives meperidine (From Demerol) Adverse Reaction (Unknown, Verified 09/15/24 13:21) Vomiting Medications ???Medication ???Instructions ???Recorded ???Confirmed ? (more content not included)... Normal [facility] Phosphoruson 09-15-2024 Phosphate [Mass/Vol] 3.2 mg/dL Normal 2.7-4.5 [facility] Comment on above: Performed By: #### L 501.9520, L500.4100, L500.4050, L506.0400, L506.1000 #### [facility] [address] [place], [place], [id number] Platelet countOrdered By: Tessy Gallagher on 09-15-2024 Platelets (Bld) [#/Vol] 495 10*3/uL High 150-450 [facility] Potassium measurement (mass/ volume)Ordered By: Anselmo Gallagher on 09-15-2024 Potassium (Unsp spec) [Mass/Vol] 4.1 mmol/L 3.3-5.1 [facility] RBC Auto (Bld) [#/Vol]Ordere d By: Anselmo Gallagher on 09-15-2024 RBC (Bld) [#/Vol] 3.91 10*6/uL Low 4.2-5.4 [facility] Retic Panelon 09-15-2024 IM RET FRACTION 17.50 High 3.00-15.90 [facility] Comment on above: Performed By: #### L 501.9520, L500.4100, L500.4050, L506.0400, L506.1000 #### [facility] [address] [place], [address] RET-HE 26.2 pg Low 30-35 [facility] Comment on above: Performed By: #### L 501.9520, L500.4100, L500.4050, L506.0400, L506.1000 #### [facility] [address] [place], [address] Retic Count 1.34 Normal 0.5-1.5 [facility] Comment on above: Performed By: #### L 501.9520, L500.4100, L500.4050, L506.0400, L506.1000 #### [facility] [address] [place], [place], [id number] Reticulocyte hemoglobin equi valent (RET-He) measurementOrdered By: Anselmo Gallagher on 09-15-2024 Hemoglobin (Reticulocytes) [Entitic mass] 26.2 pg Low 30-35 [facility] Reticulocytes Auto (Bld) [#/ Vol]Ordered By: Anselmo Gallagher on 09-15-2024 Reticulocytes/100 RBC (Bld) 1.34 % 0.5-1.5 [facility] Serum creatinine measurement (mass/volume)Ordered By: Anselmo Gallagher on 09-15-2024 Creatinine [Mass/Vol] 1.01 mg/dL 0.70-1.20 [facility] Serum globulin measurementOr dered By: Anselmo Gallagher on 09-15-2024 Globulin (S) [Mass/Vol] 4.2 g/dL 2.2-4.2 [facility] Serum glucose measurement (m ass/volume)Ordered By: Anselmo Gallagher on 09-15-2024 Glucose [Mass/Vol] 140 mg/dL High 70-99 [facility] Serum or plasma alanine lloyd otransferase (ALT) measurementOrdered By: Anselmo Gallagher on 09-15-2024 ALT [Catalytic activity/Vol] 11 U/L <35 [facility] Serum or plasma albumin akanksha urement (mass/volume)Ordered By: Anselmo Gallagher on 09-15-2024 Albumin [Mass/Vol] 3.6 g/dL 3.4-4.8 [facility] Serum or plasma albumin/glob ulin mass ratioOrdered By: Anselmo Gallagher on 09-15-2024 Albumin/Globulin [Mass ratio] 0.8 {ratio} Low 0.9-2.4 [facility] Serum or plasma alkaline fern sphatase measurementOrdered By: Anselmo Gallagher on 09-15-2024 ALP [Catalytic activity/Vol] 87 U/L 35-104 [facility] Serum or plasma calcium akanksha urement (mass/volume)Ordered By: Anselmo Gallagher on 09-15-2024 Calcium [Mass/Vol] 9.9 mg/dL 7.6-11.0 [facility] Serum or plasma erythropoiet in (EPO) measurement (units/volume)Ordered By: Anselmo Gallagher on 09-15-2024 Erythropoietin (EPO) Qn 46.6 mIU/mL High 2.6-18.5 [facility] Comment on above: [employer] DxI 800 Immunoassay SystemValues obtained with different assay methods or kits cannotbe used interchangeably. Results cannot be interpreted asabsolute evidence of the presence or absence of malignantdisease.Performed at: [facility] [facility] [id number] Director: Regan Bird PhD, Phone: [phone] Serum or plasma ferritin chantel surement (mass/volume)Ordered By: Anselmo Gallagher on 09-15-2024 Ferritin [Mass/Vol] 866 ng/mL High 22-378 [facility] Serum or plasma iron saturat ion measurement (mass fraction)Ordered By: Anselmo Gallagher on 09-15-2024 Iron saturation [Mass fraction] 10.1 % Low 13-59 [facility] Comment on above: Previous reported re sult: 10.0 %Edited by: HUSSEIN on 09/16/24:1839 AMENDED REPORT 09/16/24 1839 IRON SATURATION previously reported as: 10.0 L % Serum or plasma urea nitroge n measurement (mass/volume)Ordered By: Anselmo Gallagher on 09-15-2024 Urea nitrogen [Mass/Vol] 17 mg/dL 4-19 [facility] Sodium levelOrdered By: Osiel Gallagher on 09-15-2024 Sodium [Moles/Vol] 138 mmol/L 133-145 [facility] Total proteinOrdered By: Herman Gallagher on 09-15-2024 Protein [Mass/Vol] 7.8 g/dL 5.9-8.4 [facility] Vitamin B12on 09-15-2024 Cobalamin (Vitamin B12) [Mass/Vol] 500 pg/mL Normal 180-914 [facility] Comment on above: Performed By: #### L 503.6030, L503.0106, L501.5200, L500.4050, L3100.1725 #### [facility] [address] [place], [address] Vitamin B12 ser/plasOrdered By: Anselmo Gallagher on 09-15-2024 Cobalamin (Vitamin B12) [Mass/Vol] 500 pg/mL 180-914 [facility] White blood cell (WBC) count Ordered By: Anselmo Gallagher on 09-15-2024 WBC (Bld) [#/Vol] 10.4 10*3/uL 4.4-11.0 [facility] Absolute lymphocyte countOrd ered By: Maricarmen Tavares on 09-09-2024 Lymphocytes Auto (Unsp spec) [#/Vol] 2.41 10*3/uL 0.83-4.51 [facility] Absolute neutrophil countOrd ered By: Maricarmen Tavares on 09-09-2024 Neutrophils (Bld) [#/Vol] 6.6 10*3/uL 2.0-7.7 [facility] Automated lymphocyte count a s percentage of total leukocytesOrdered By: Maricarmen Tavares on 09-09-2024 Lymphocytes/100 WBC Auto (Unsp spec) 23.9 % 19-41 [facility] Basophil percentageOrdered B y: Maricarmen Tavares on 09-09-2024 Basophils/100 WBC (Bld) 0.4 % 0-1 [facility] CBC W/Diff, Automatedon Absolute Lymph 2.41 X10 3/uL Normal 0.83-4.51 [facility] Comment on above: Performed By: #### L 501.9520, L500.4100, L500.4050, L506.0400, L506.1000 #### [facility] [address] [place], [address] Absolute Neut 6.6 X10 3/uL Normal 2.0-7.7 [facility] Comment on above: Performed By: #### L 501.9520, L500.4100, L500.4050, L506.0400, L506.1000 #### [facility] [address] [place], [address] Basophils/100 WBC (Bld) 0.4 % Normal 0-1 [facility] Comment on above: Performed By: #### L 501.9520, L500.4100, L500.4050, L506.0400, L506.1000 #### [facility] [address] [place], [address] Eosinophils/100 WBC (Bld) 0.9 % Normal 0-5 [facility] Comment on above: Performed By: #### L 501.9520, L500.4100, L500.4050, L506.0400, L506.1000 #### [facility] [address] [place], [address] Erythrocyte distribution width (RBC) [Ratio] 16.0 % High 11.6-14.6 [facility] Comment on above: Performed By: #### L 501.9520, L500.4100, L500.4050, L506.0400, L506.1000 #### [facility] [address] [place], [address] Hematocrit (Bld) [Volume fraction] 33.7 % Low 37-47 [facility] Comment on above: Performed By: #### L 501.9520, L500.4100, L500.4050, L506.0400, L506.1000 #### [facility] [address] [place], [address] Hemoglobin (Bld) [Mass/Vol] 10.1 g/dL Low 12.0-15.0 [facility] Comment on above: Performed By: #### L 501.9520, L500.4100, L500.4050, L506.0400, L506.1000 #### [facility] [address] [place], [address] IG% 0.400 Normal 0.0-0.9 [facility] Comment on above: Result Comment: IG% - Immature Granulocytes (promyelocytes, myelocytes and metamyelocytes) > 1% indicates that a LEFT SHIFT is Present. Performed By: #### L 501.9520, L500.4100, L500.4050, L506.0400, L506.1000 #### [facility] [address] [place], [address] Lymphocytes/100 WBC (Bld) 23.9 % Normal 19-41 [facility] Comment on above: Performed By: #### L 501.9520, L500.4100, L500.4050, L506.0400, L506.1000 #### [facility] [address] [place], [address] MCH (RBC) [Entitic mass] 25.6 pg Low 27.0-32.0 [facility] Comment on above: Performed By: #### L 501.9520, L500.4100, L500.4050, L506.0400, L506.1000 #### [facility] [address] [place], [address] MCHC (RBC) [Mass/Vol] 30.0 g/dL Low 32-36 [facility] Comment on above: Performed By: #### L 501.9520, L500.4100, L500.4050, L506.0400, L506.1000 #### [facility] [address] [place], [address] MCV (RBC) [Entitic vol] 85.3 fL Normal 81-99 [facility] Comment on above: Performed By: #### L 501.9520, L500.4100, L500.4050, L506.0400, L506.1000 #### [facility] [address] [place], [address] Monocytes/100 WBC (Bld) 9.3 % Normal 0-10 [facility] Comment on above: Performed By: #### L 501.9520, L500.4100, L500.4050, L506.0400, L506.1000 #### [facility] [address] [place], [address] Neutrophils/100 WBC (Bld) 65.1 % Normal 47-70 [facility] Comment on above: Performed By: #### L 501.9520, L500.4100, L500.4050, L506.0400, L506.1000 #### [facility] [address] [place], [address] Nucleated RBC (Bld) [#/Vol] 0 10*3/uL Normal 0-5 [facility] Comment on above: Performed By: #### L 501.9520, L500.4100, L500.4050, L506.0400, L506.1000 #### [facility] [address] [place], [address] Platelet mean volume (Bld) [Entitic vol] 10.2 fL Normal 6.2-12.0 [facility] Comment on above: Performed By: #### L 501.9520, L500.4100, L500.4050, L506.0400, L506.1000 #### [facility] [address] [place], [address] Platelets (Bld) [#/Vol] 492 10*3/uL High 150-450 [facility] Comment on above: Performed By: #### L 501.9520, L500.4100, L500.4050, L506.0400, L506.1000 #### [facility] [address] [place], [address] RBC (Bld) [#/Vol] 3.95 10*6/uL Low 4.2-5.4 [facility] Comment on above: Performed By: #### L 501.9520, L500.4100, L500.4050, L506.0400, L506.1000 #### [facility] [address] [place], [address] RDW SD 50.0 fl High 35.1-43.9 [facility] Comment on above: Performed By: #### L 501.9520, L500.4100, L500.4050, L506.0400, L506.1000 #### [facility] [address] [place], [address] WBC (Bld) [#/Vol] 10.1 10*3/uL Normal 4.4-11.0 [facility] Comment on above: Performed By: #### L 501.9520, L500.4100, L500.4050, L506.0400, L506.1000 #### [facility] [address] [place], [address] Eosinophil percentageOrdered By: Maricarmen Tavares on 09-09-2024 Eosinophils/100 WBC (Bld) 0.9 % 0-5 [facility] Erythrocyte distribution wid th ratioOrdered By: Maricarmen Tavares on 09-09-2024 Erythrocyte distribution width (RBC) [Ratio] 16.0 % High 11.6-14.6 [facility] Erythrocyte distribution wid th standard deviationOrdered By: Maricarmen Tavares on 09-09-2024 Erythrocyte distribution width (RBC) [Ratio] 50.0 fl High 35.1-43.9 [facility] Hematocrit Auto (Bld) [Volum e fraction]Ordered By: Maricarmen Tavares on 09-09-2024 Hematocrit (Bld) [Volume fraction] 33.7 % Low 37-47 [facility] Hemoglobin measurementOrdere d By: Maricarmen Tavares on 09-09-2024 Hemoglobin (Bld) [Mass/Vol] 10.1 g/dL Low 12.0-15.0 [facility] Immature granulocytes/100 WB C Auto (Bld)Ordered By: Maricarmen Tavares on 09-09-2024 Immature granulocytes/100 WBC (Bld) 0.400 % 0.0-0.9 [facility] Comment on above: IG% - Immature Granu locytes (promyelocytes, myelocytes and metamyelocytes) > 1% indicates that a LEFT SHIFT is Present. MCV (mean corpuscular volume ) determinationOrdered By: Maricarmen Tavares on 09-09-2024 MCV (RBC) [Entitic vol] 85.3 fL 81-99 [facility] Mean corpuscular hemoglobin (MCH) determinationOrdered By: Maricarmen Tavares on 09-09-2024 MCH (RBC) [Entitic mass] 25.6 pg Low 27.0-32.0 [facility] Mean corpuscular hemoglobin concentration (MCHC) determinationOrdered By: Maricarmen Tavares on 09-09-2024 MCHC (RBC) [Mass/Vol] 30.0 g/dL Low 32-36 [facility] Mean platelet volume determi nationOrdered By: Maricarmen Tavares on 09-09-2024 Platelet mean volume (Bld) [Entitic vol] 10.2 fL 6.2-12.0 [facility] Monocyte percentageOrdered B y: Maricaremn Tavares on 09-09-2024 Monocytes/100 WBC (Bld) 9.3 % 0-10 [facility] Neutrophil percentageOrdered By: irenabosque farmsjose Tavares on 09-09-2024 Neutrophils/100 WBC (Bld) 65.1 % 47-70 [facility] Nucleated red blood cell per centageOrdered By: krystin Tavares on 09-09-2024 Nucleated RBC/100 WBC (Bld) [Ratio] 0 % 0-5 [facility] Platelet countOrdered By: Mandy Tavares on 09-09-2024 Platelets (Bld) [#/Vol] 492 10*3/uL High 150-450 [facility] RBC Auto (Bld) [#/Vol]Ordere d By: Maricarmen Tavares on 09-09-2024 RBC (Bld) [#/Vol] 3.95 10*6/uL Low 4.2-5.4 [facility] White blood cell (WBC) count Ordered By: Maricarmen Tavares on 09-09-2024 WBC (Bld) [#/Vol] 10.1 10*3/uL 4.4-11.0 [facility] Endocrinology Visit Reporton 09-08-2024 Endocrinology Visit Report [facility] [address] [place] [address] OFFICE VISIT Date of Service: 09/08/24 MR#: [id number] Acct: [id number] Name: KIRILL ALMAZAN EMMANUEL Rep #: [id number] : 1955 Provider: Xavier Noland Age/Sex: 69/F Location[place] [facility] [place]: Signed Intake Vital Signs 05/11/24 13:19 08/05/24 10:16 09/08/24 13:05 Height 5 ft 2 in 5 ft 2 in 5 ft 2 in Weight: 241 lb BMI 44.0 BP 127/84 H Blood Pressure Location Rt brachial Position Sitting Pulse 84 Pulse Source Monitor Pulse Oximetry (%) 94 Oxygen Delivery Method room air Intake Visit Reasons: 4 M FU Chief Complaint: Diabetes Is patient in pain?: No Allergies adhesive Allergy (Mild, Verified 09/08/24 13:09) Hives meperidine (From Demerol) Adverse Reaction (Unknown, Verified 09/08/24 13:09) Vomiting Medications ???Medication ???Instructions ???Recorded ???Confirmed ???Type psyllium husk 0.4 gram capsule 0.4 g PO DAILY 10/21/23 09/08/24 H istory (Metamucil) FreeStyle Azucena 3 Sensor #2 ea 01/20/24 09/08/24 Rx (blood-glucose sensor) insulin glargine 100 unit/mL (3 18 unit (0.18 mL) subcut QHS #15 m L 01/20/24 09/08/24 Rx mL) subcutaneous pen insulin lispro 100 unit/mL 35 unit (0.35 mL) subcut TID #96 m L 01/20/24 09/08/24 Rx subcutaneous pen (Humalog KwikPen (U-100) Insulin) amlodipine 10 mg tablet 10 mg PO DAILY #90 tabs 04/15/24 0 09/08/24 Rx metoprolol succinate 50 mg 50 mg PO DAILY #90 tabs 04/15/24 0 09/08/24 Rx tablet,extended release 24 hr pen needle, diabetic 32 gauge x #400 ea 05/11/24 09/08/24 Rx (BD Ultra-Fine Ale Pen Needle) paroxetine HCl 10 mg tablet 10 mg PO DAILY #90 tabs 06/02/24 0 09/08/24 Rx atorvastatin 10 mg tablet 10 mg PO DAILY #90 tabs 08/11/24 0 09/08/24 Rx biotin 1 mg capsule 1 mg PO QDAY 09/08/24 09/08/24 His tory cholecalciferol (vitamin D3) 25 25 mcg PO QDAY 09/08/24 09/08/24 H istory mcg (1,000 unit) capsule empagliflozin 25 mg tablet 25 mg PO QDAY #90 tabs 09/08/24 Rx (Jardiance) levocetirizine 5 mg tablet (Xyzal) 5 mg PO QDAY 09/08/24 09/08/24 H istory mecobalamin (vitamin B12) 1,000 1,000 mcg PO QDAY 09/08/24 5 History mcg chewable tablet psermyag-tnt-uypres 500 mcg cap PO 09/08/24 09/08/24 History DFE-feverfew 2.5 mg-turm 50 mg-hrb capsule Have you fallen in the past year?: No PFSH Medical History (Updated 09/14/24 @ 09:[address] Steve Metz MD) Iron deficiency anemia Anemia Chronic cough Flu vaccine need Cardiology follow-up encounter History of echocardiogram History of stress test Diabetes FH: sudden cardiac (SCD) Retinal hemorrhage, right eye Hyperopia of both eyes with regular astigmatism and presbyopia Epiretinal membrane (ERM) of left eye Combined forms of age-related cataract, bilateral Venous insufficiency of both lower extremities Insulin dependent diabetes mellitus Kidney stones Injury of head and neck Leg cramps Anxiety and depression Osteoarthritis of knee Meralgia paresthetica of left side Sacroiliitis Sebaceous cyst of breast Axillary adenopathy Radial scar of right breast Mixed hyperlipidemia Diabetes type 2, controlled Brain bleed History of kidney stones Migraine Breast lump Arthritis Seasonal allergic rhinitis Surgical History Hx of colonoscopy History of total knee replacement (TKR) History of excision of epidermal inclusion cyst S/P lumpectomy, right breast S/P breast biopsy, left Hx of knee surgery Hx of hand surgery Hx of tubal ligation History of Family History Mother Breast cancer Arthritis Father Arthritis Diabetes Hypertension High cholesterol Lung cancer Brother Asthma Sister Sudden cardiac Social History household members: spouse current occupational status: retired Smoking Status: Never smoker second hand exposure: No alcohol intake: current alcohol intake frequency: holidays/special occasions only substance use type: does not use what type of physical activity do you participate in: walking frequency: 1-2 times per week seatbelt use: always HPI HPI Chief Complaint: Diabetes Details: KIRILL ALMAZAN, is a 69 F who presents to the office today for follow up. A1C is 8%, might not be accurate She is taking basal bolus. She is using DexBecual CGM Upload shows very high blood sugars after breakfast and spikes after lunch and supper. GMI is 7.5% She is retired and having some difficulty adjusting. She had COVID recently and is not bouncing back. She is on a statin. Hemoglobin in (more content not included)... Normal [facility] Laboratory - Hematology and Cell countsOrdered By: Steve Metz on 09-08-2024 HbA1c (Bld) [Mass fraction] 7.9 % High 4.2-6.3 [facility] Microalb:Creat Ratio,Random URon 09-01-2024 MALB:CREAT 30.7 mg/g CRE Normal [facility] Comment on above: Result Comment: AMENDED REPORT 09/01/24 1103 MALB:CREAT previously reported as: 307.3 mg/g CRE Performed By: #### L 501.9520, L500.4100, L500.4050, L506.0400, L506.1000 #### [facility] [address] [place], [address] Stool Occult Blood iFOBon STOB Negative Normal [facility] Comment on above: Performed By: #### L 501.9520, L500.4100, L500.4050, L506.0400, L506.1000 #### [facility] [address] [place], [address] Stool gastrointestinal hemog lobin detection by immunologic methodOrdered By: Maricarmen Tavares on 08-10-2024 Lower GI hemoglobin IA Ql (Stl) [facility] Lower GI hemoglobin IA Ql (Stl) [facility] Ferritinon 08-06-2024 Ferritin [Mass/Vol] 826 ng/mL High 22-378 [facility] Comment on above: Performed By: #### L 100.0100 #### [facility] [address] [place], [address] Iron+Iron Binding Capacityon 08-06-2024 TIBC 206 ug/dL Low 250-450 [facility] Comment on above: Performed By: #### L 100.0100 #### [facility] [address] [place], [address] Absolute lymphocyte countOrd ered By: Maricarmen Tavares on 08-05-2024 Lymphocytes Auto (Unsp spec) [#/Vol] 2.45 10*3/uL 0.83-4.51 [facility] Absolute neutrophil countOrd ered By: krystin Tavares on 08-05-2024 Neutrophils (Bld) [#/Vol] 6.8 10*3/uL 2.0-7.7 [facility] Anion gap in Serum or Plasma Ordered By: Maricarmen Tavares on 08-05-2024 Anion gap [Moles/Vol] 12 mmol/L 07-23 [facility] Automated lymphocyte count a s percentage of total leukocytesOrdered By: Maricarmen Tavares on 08-05-2024 Lymphocytes/100 WBC Auto (Unsp spec) 23.8 % [facility] BUN/creatinine ratioOrdered By: Matibosque farmsjose Tavares on 08-05-2024 Urea nitrogen/Creatinine [Mass ratio] 18.5 mg/mg - [facility] Basic Metabolic Profile (BMP )on 08-05-2024 BUN/CRE 18.5 RATIO Normal 12-28 [facility] Comment on above: Performed By: #### L 501.9520, L500.4100, L500.4050, L506.0400, L506.1000 #### [facility] [address] [place], [address] Calcium [Mass/Vol] 9.7 mg/dL Normal 7.6-11.0 [facility] Comment on above: Performed By: #### L 501.9520, L500.4100, L500.4050, L506.0400, L506.1000 #### [facility] [address] [place], [address] Chloride [Moles/Vol] 99 mmol/L Normal 98-108 [facility] Comment on above: Performed By: #### L 501.9520, L500.4100, L500.4050, L506.0400, L506.1000 #### [facility] [address] [place], [address] CO2 [Moles/Vol] 27.2 mmol/L Normal 21.0-32.0 [facility] Comment on above: Performed By: #### L 501.9520, L500.4100, L500.4050, L506.0400, L506.1000 #### [facility] [address] [place], [address] Creatinine [Mass/Vol] 0.86 mg/dL Normal 0.70-1.20 [facility] Comment on above: Performed By: #### L 501.9520, L500.4100, L500.4050, L506.0400, L506.1000 #### [facility] [address] [place], [address] GAP 12 Normal 5-15 [facility] Comment on above: Performed By: #### L 501.9520, L500.4100, L500.4050, L506.0400, L506.1000 #### [facility] [address] [place], [address] GFR/1.73 sq M.predicted among non-blacks MDRD (S/P/Bld) [Vol rate/Area] 74 mL/min/{1.73_m2} Normal >60 [facility] Comment on above: Result Comment: mL/m in/1.73m2 CKD-EPI Creatinine Equation (2020) Performed By: #### L 501.9520, L500.4100, L500.4050, L506.0400, L506.1000 #### [facility] [address] [place], [address] Glucose [Mass/Vol] 139 mg/dL High 70-99 [facility] Comment on above: Performed By: #### L 501.9520, L500.4100, L500.4050, L506.0400, L506.1000 #### [facility] [address] [place], [address] Potassium [Moles/Vol] 3.9 mmol/L Normal 3.3-5.1 [facility] Comment on above: Performed By: #### L 501.9520, L500.4100, L500.4050, L506.0400, L506.1000 #### [facility] [address] [place], [address] Sodium [Moles/Vol] 139 mmol/L Normal 133-145 [facility] Comment on above: Performed By: #### L 501.9520, L500.4100, L500.4050, L506.0400, L506.1000 #### [facility] [address] [place], [address] Urea nitrogen [Mass/Vol] 16 mg/dL Normal 4-19 [facility] Comment on above: Performed By: #### L 501.9520, L500.4100, L500.4050, L506.0400, L506.1000 #### [facility] [address] [place], [address] Basophil percentageOrdered B y: Maricarmen Tavares on 08-05-2024 Basophils/100 WBC (Bld) 0.4 % 0-1 [facility] CBC W/Diff, Automatedon 07-10 Absolute Lymph 2.45 X10 3/uL Normal 0.83-4.51 [facility] Comment on above: Performed By: #### L 501.9520, L500.4100, L500.4050, L506.0400, L506.1000 #### [facility] [address] [place], [address] Absolute Neut 6.8 X10 3/uL Normal 2.0-7.7 [facility] Comment on above: Performed By: #### L 501.9520, L500.4100, L500.4050, L506.0400, L506.1000 #### [facility] [address] [place], [address] Basophils/100 WBC (Bld) 0.4 % Normal 0-1 [facility] Comment on above: Performed By: #### L 501.9520, L500.4100, L500.4050, L506.0400, L506.1000 #### [facility] [address] [place], [address] Eosinophils/100 WBC (Bld) 1.0 % Normal 0-5 [facility] Comment on above: Performed By: #### L 501.9520, L500.4100, L500.4050, L506.0400, L506.1000 #### [facility] [address] [place], [address] Erythrocyte distribution width (RBC) [Ratio] 15.8 % High 11.6-14.6 [facility] Comment on above: Performed By: #### L 501.9520, L500.4100, L500.4050, L506.0400, L506.1000 #### [facility] [address] [place], [address] Hematocrit (Bld) [Volume fraction] 34.3 % Low 37-47 [facility] Comment on above: Performed By: #### L 501.9520, L500.4100, L500.4050, L506.0400, L506.1000 #### [facility] [address] [place], [address] Hemoglobin (Bld) [Mass/Vol] 10.3 g/dL Low 12.0-15.0 [facility] Comment on above: Performed By: #### L 501.9520, L500.4100, L500.4050, L506.0400, L506.1000 #### [facility] [address] [place], [address] IG% 0.300 Normal 0.0-0.9 [facility] Comment on above: Result Comment: IG% - Immature Granulocytes (promyelocytes, myelocytes and metamyelocytes) > 1% indicates that a LEFT SHIFT is Present. Performed By: #### L 501.9520, L500.4100, L500.4050, L506.0400, L506.1000 #### [facility] [address] [place], [address] Lymphocytes/100 WBC (Bld) 23.8 % Normal 19-41 [facility] Comment on above: Performed By: #### L 501.9520, L500.4100, L500.4050, L506.0400, L506.1000 #### [facility] [address] [place], [address] MCH (RBC) [Entitic mass] 26.3 pg Low 27.0-32.0 [facility] Comment on above: Performed By: #### L 501.9520, L500.4100, L500.4050, L506.0400, L506.1000 #### [facility] [address] [place], [address] MCHC (RBC) [Mass/Vol] 30.0 g/dL Low 32-36 [facility] Comment on above: Performed By: #### L 501.9520, L500.4100, L500.4050, L506.0400, L506.1000 #### [facility] [address] [place], [address] MCV (RBC) [Entitic vol] 87.7 fL Normal 81-99 [facility] Comment on above: Performed By: #### L 501.9520, L500.4100, L500.4050, L506.0400, L506.1000 #### [facility] [address] [place], [address] Monocytes/100 WBC (Bld) 8.4 % Normal 0-10 [facility] Comment on above: Performed By: #### L 501.9520, L500.4100, L500.4050, L506.0400, L506.1000 #### [facility] [address] [place], [address] Neutrophils/100 WBC (Bld) 66.1 % Normal 47-70 [facility] Comment on above: Performed By: #### L 501.9520, L500.4100, L500.4050, L506.0400, L506.1000 #### [facility] [address] [place], [address] Nucleated RBC (Bld) [#/Vol] 0 10*3/uL Normal 0-5 [facility] Comment on above: Performed By: #### L 501.9520, L500.4100, L500.4050, L506.0400, L506.1000 #### [facility] [address] [place], [address] Platelet mean volume (Bld) [Entitic vol] 10.6 fL Normal 6.2-12.0 [facility] Comment on above: Performed By: #### L 501.9520, L500.4100, L500.4050, L506.0400, L506.1000 #### [facility] [address] [place], [address] Platelets (Bld) [#/Vol] 489 10*3/uL High 150-450 [facility] Comment on above: Performed By: #### L 501.9520, L500.4100, L500.4050, L506.0400, L506.1000 #### [facility] [address] [place], [address] RBC (Bld) [#/Vol] 3.91 10*6/uL Low 4.2-5.4 [facility] Comment on above: Performed By: #### L 501.9520, L500.4100, L500.4050, L506.0400, L506.1000 #### [facility] [address] [place], [address] RDW SD 50.5 fl High 35.1-43.9 [facility] Comment on above: Performed By: #### L 501.9520, L500.4100, L500.4050, L506.0400, L506.1000 #### [facility] [address] [place], [address] WBC (Bld) [#/Vol] 10.3 10*3/uL Normal 4.4-11.0 [facility] Comment on above: Performed By: #### L 501.9520, L500.4100, L500.4050, L506.0400, L506.1000 #### [facility] [address] [place], [address] Carbon dioxide, total [Moles /volume] in Central venous bloodOrdered By: Maricarmen Tavares on 08-05-2024 CO2 [Moles/Vol] 27.2 mmol/L 21.0-32.0 [facility] Chloride assayOrdered By: Mandy Tavares on 08-05-2024 Chloride [Moles/Vol] 99 mmol/L 98-108 [facility] Eosinophil percentageOrdered By: Maricarmen Tavares on 08-05-2024 Eosinophils/100 WBC (Bld) 1.0 % 0-5 [facility] Erythrocyte distribution wid th ratioOrdered By: Maricarmen Tavares on 08-05-2024 Erythrocyte distribution width (RBC) [Ratio] 15.8 % High 11.6-14.6 [facility] Erythrocyte distribution wid th standard deviationOrdered By: Matibosque farmsjose Tavares on 08-05-2024 Erythrocyte distribution width (RBC) [Ratio] 50.5 fl High 35.1-43.9 [facility] Glomerular filtration rate ( GFR) estimation/1.73 sq m using serum, plasma, or whole bOrdered By: Maricarmen Tavares on 08-05-2024 GFR/1.73 sq M.predicted among non-blacks MDRD (S/P/Bld) [Vol rate/Area] 74 mL/min/{1.73_m2} >60 [facility] Comment on above: mL/min/1.73m2 CKD-EP I Creatinine Equation (2020) Hematocrit Auto (Bld) [Volum e fraction]Ordered By: Maricarmen Tavares on 08-05-2024 Hematocrit (Bld) [Volume fraction] 34.3 % Low 37-47 [facility] Hemoglobin measurementOrdere d By: Maricarmen Tavares on 08-05-2024 Hemoglobin (Bld) [Mass/Vol] 10.3 g/dL Low 12.0-15.0 [facility] Immature granulocytes/100 WB C Auto (Bld)Ordered By: Maricarmen Tavares on 08-05-2024 Immature granulocytes/100 WBC (Bld) 0.300 % 0.0-0.9 [facility] Comment on above: IG% - Immature Granu locytes (promyelocytes, myelocytes and metamyelocytes) > 1% indicates that a LEFT SHIFT is Present. Internal Medicine Office Vis itodaljit 08-05-2024 Internal Medicine Office Visit [facility] [address] [place] [address] [place] [address] OFFICE VISIT Date of Service: 08/05/24 MR#: [id number] Acct: [id number] Name: KIRILL ALMAZAN EMMANUEL Rep #: [id number] : 1955 Provider: Dr. Maricarmen brothers MD Age/Sex: 69/F [place] [facility] [place] Status: Signed Intake Vital Signs 04/15/24 09:03 05/11/24 13:19 08/05/24 10:16 Height 5 ft 2 in 5 ft 2 in 5 ft 2 in Weight: 245 lb BMI 44.8 BP 130/78 H Blood Pressure Location Rt brachial Position Sitting Respiration 16 Pulse 85 Pulse Source Monitor Temp 100.6 F H Temp Source Temporal Pulse Oximetry (%) 97 Oxygen Delivery Method room air Intake Visit Reasons: 3 M FU Chief Complaint: 3 M FU Is patient in pain?: No Allergies adhesive Allergy (Mild, Verified 08/05/24 10:12) Hives meperidine (From Demerol) Adverse Reaction (Unknown, Verified 08/05/24 10:12) Vomiting Medications ???Medication ???Instructions ???Recorded ???Confirmed ???Type atorvastatin 10 mg tablet 10 mg PO DAILY #90 tabs 08/09/23 0 08/05/24 Rx loratadine 10 mg tablet (Claritin) 10 mg PO DAILY 10/21/23 08/05/24 History psyllium husk 0.4 gram capsule 0.4 g PO DAILY 10/21/23 08/05/24 H istory (Metamucil) FreeStyle Azucena 3 Sensor #2 ea 01/20/24 08/05/24 Rx (blood-glucose sensor) insulin glargine 100 unit/mL (3 18 unit (0.18 mL) subcut QHS #15 m L 01/20/24 08/05/24 Rx mL) subcutaneous pen insulin lispro 100 unit/mL 35 unit (0.35 mL) subcut TID #96 m L 01/20/24 08/05/24 Rx subcutaneous pen (Humalog KwikPen (U-100) Insulin) amlodipine 10 mg tablet 10 mg PO DAILY #90 tabs 04/15/24 0 08/05/24 Rx metoprolol succinate 50 mg 50 mg PO DAILY #90 tabs 04/15/24 0 08/05/24 Rx tablet,extended release 24 hr omeprazole 40 mg capsule,delayed 40 mg PO QDAY #90 caps 04/15/24 Rx release pen needle, diabetic 32 gauge x #400 ea 05/11/24 08/05/24 Rx (BD Ultra-Fine Ale Pen Needle) paroxetine HCl 10 mg tablet 10 mg PO DAILY #90 tabs 06/02/24 0 08/05/24 Rx Have you fallen in the past year?: No PFSH Medical History Chronic cough Flu vaccine need Cardiology follow-up encounter History of echocardiogram History of stress test Diabetes FH: sudden cardiac (SCD) Retinal hemorrhage, right eye Hyperopia of both eyes with regular astigmatism and presbyopia Epiretinal membrane (ERM) of left eye Combined forms of age-related cataract, bilateral Venous insufficiency of both lower extremities Insulin dependent diabetes mellitus Kidney stones Injury of head and neck Leg cramps Anxiety and depression Osteoarthritis of knee Meralgia paresthetica of left side Sacroiliitis Sebaceous cyst of breast Axillary adenopathy Radial scar of right breast Mixed hyperlipidemia Diabetes type 2, controlled Brain bleed History of kidney stones Migraine Breast lump Arthritis Seasonal allergic rhinitis Surgical History Hx of colonoscopy History of total knee replacement (TKR) History of excision of epidermal inclusion cyst S/P lumpectomy, right breast S/P breast biopsy, left Hx of knee surgery Hx of hand surgery Hx of tubal ligation History of Family History Mother Breast cancer Arthritis Father Arthritis Diabetes Hypertension High cholesterol Lung cancer Brother Asthma Sister Sudden cardiac Social History household members: spouse current occupational status: retired Smoking Status: Never smoker second hand exposure: No alcohol intake: current alcohol intake frequency: holidays/special occasions only substance use type: does not use what type of physical activity do you participate in: walking frequency: 1-2 times per week seatbelt use: always HPI HPI Chief Complaint: 3 M FU Details: KIRILL ALMAZAN, is a 69 F who presents to the office today for follow-up of her chronic conditions. No acute concerns at this time. History of chronic cough and at her last visit, she was started on omeprazole due to concern for silent reflux. Cough is worse at night. She states that she has not noted any significant change in omeprazole. Still coughing a lot at night. 130/78 mmHg. Currently on amlodipine, metoprolol which she states that she is taking as prescribed. No chest pain, palpitation or shortness of breath. Other chronic medical conditions are stable. ROS Const Constitutional: No body ache, chills, excessive sweating, fatigue, fever(s), frequent falls, headache(s), snoring, weakness, sleep problems or change in appetite Eyes Eyes: No blurry vision, change in vision, bulging eyes, floater (more content not included)... Normal [facility] Iron measurement (mass/mass) Ordered By: Maricarmen Tavares on 08-05-2024 Iron (Unsp spec) [Mass/Mass] 23 ug/dL Low 50-170 [facility] MCV (mean corpuscular volume ) determinationOrdered By: Maricarmen Tavares on 08-05-2024 MCV (RBC) [Entitic vol] 87.7 fL 81-99 [facility] Mean corpuscular hemoglobin (MCH) determinationOrdered By: Maricarmen Tavares on 08-05-2024 MCH (RBC) [Entitic mass] 26.3 pg Low 27.0-32.0 [facility] Mean corpuscular hemoglobin concentration (MCHC) determinationOrdered By: Maricarmen Tavares on 08-05-2024 MCHC (RBC) [Mass/Vol] 30.0 g/dL Low 32-36 [facility] Mean platelet volume determi nationOrdered By: Maricarmen Tavares on 08-05-2024 Platelet mean volume (Bld) [Entitic vol] 10.6 fL 6.2-12.0 [facility] Monocyte percentageOrdered B y: Maricarmen Tavares on 08-05-2024 Monocytes/100 WBC (Bld) 8.4 % 0-10 [facility] Neutrophil percentageOrdered By: Maricarmen Tavares on 08-05-2024 Neutrophils/100 WBC (Bld) 66.1 % 47-70 [facility] No Panel InformationOrdered By: Maricarmen Tavares on 08-05-2024 Unsaturated Iron Binding Capacity 183 ug/dL Low 228-428 [facility] Nucleated red blood cell per centageOrdered By: Maricarmen Tavares on 08-05-2024 Nucleated RBC/100 WBC (Bld) [Ratio] 0 % 0-5 [facility] Platelet countOrdered By: Mandy Tavares on 08-05-2024 Platelets (Bld) [#/Vol] 489 10*3/uL High 150-450 [facility] Potassium measurement (mass/ volume)Ordered By: Maricarmen Tavares on 08-05-2024 Potassium (Unsp spec) [Mass/Vol] 3.9 mmol/L 3.3-5.1 [facility] RBC Auto (Bld) [#/Vol]Ordere d By: Maricarmen Tavares on 08-05-2024 RBC (Bld) [#/Vol] 3.91 10*6/uL Low 4.2-5.4 [facility] Random urine creatinine akanksha urement (mass/volume)Ordered By: Steve Metz on 08-05-2024 Creatinine Unsp time (U) [Mass/Vol] 165.00 mg/dL 28.00-217.00 [facility] Serum creatinine measurement (mass/volume)Ordered By: Maricarmen Tavares on 08-05-2024 Creatinine [Mass/Vol] 0.86 mg/dL 0.70-1.20 [facility] Serum glucose measurement (m ass/volume)Ordered By: Maricarmen Tavares on 08-05-2024 Glucose [Mass/Vol] 139 mg/dL High 70-99 [facility] Serum or plasma calcium akanksha urement (mass/volume)Ordered By: Maricarmen Tavares on 08-05-2024 Calcium [Mass/Vol] 9.7 mg/dL 7.6-11.0 [facility] Serum or plasma ferritin chantel surement (mass/volume)Ordered By: Maricarmen Tavares on 08-05-2024 Ferritin [Mass/Vol] 826 ng/mL High 22-378 [facility] Serum or plasma iron saturat ion measurement (mass fraction)Ordered By: Maricarmen Tavares on 08-05-2024 Iron saturation [Mass fraction] 11.0 % Low 13-59 [facility] Comment on above: Previous reported re sult: 11.0 %Edited by: DK on 08/06/24:1555 Serum or plasma urea nitroge n measurement (mass/volume)Ordered By: Maricarmen Tavares on 08-05-2024 Urea nitrogen [Mass/Vol] 16 mg/dL 4-19 [facility] Sodium levelOrdered By: Mati Tavares on 08-05-2024 Sodium [Moles/Vol] 139 mmol/L 133-145 [facility] Urine albumin measurement wi detection limit of 20 mg/L or less (mass/volume)Ordered By: Steve Metz on 08-05-2024 Albumin DL <= 20 mg/L (U) [Mass/Vol] 50.7 mg/L NO RANGE EST. [facility] White blood cell (WBC) count Ordered By: Maricarmen Tavares on 08-05-2024 WBC (Bld) [#/Vol] 10.3 10*3/uL 4.4-11.0 [facility] Endocrinology Visit Reporton 05-11-2024 Endocrinology Visit Report [facility] [address] [place] [address] OFFICE VISIT Date of Service: 05/11/24 MR#: [id number] Acct: [id number] Name: KIRILL ALMAZAN Rep #: [id number] : 1955 Provider: Xavier Noland Age/Sex: 69/F Location[place] [facility] [place] Status: Signed Intake Vital Signs 01/20/24 13:48 04/15/24 09:03 05/11/24 13:19 Height 5 ft 2 in 5 ft 2 in 5 ft 2 in Weight: 241 lb 245 lb BMI 44.0 44.8 BP 134/82 H 131/80 H Blood Pressure Location Lt brachial Rt brachial Position Sitting Sitting Respiration 17 Pulse 80 87 Pulse Source Monitor Monitor Temp 97.3 F L Temp Source Temporal Pulse Oximetry (%) 96 96 Oxygen Delivery Method room air room air Intake Visit Reasons: 3 M FU Chief Complaint: Diabetes Allergies adhesive Allergy (Mild, Verified 05/11/24 13:23) Hives meperidine (From Demerol) Adverse Reaction (Unknown, Verified 05/11/24 13:23) Vomiting Medications ???Medication ???Instructions ???Recorded ???Confirmed ???Type atorvastatin 10 mg tablet 10 mg PO DAILY #90 tabs 08/09/23 0 05/11/24 Rx cholecalciferol (vitamin D3) 25 25 mcg PO DAILY 10/21/23 05/11/24 History mcg (1,000 unit) capsule loratadine 10 mg tablet (Claritin) 10 mg PO DAILY 10/21/23 05/11/24 History psyllium husk 0.4 gram capsule 0.4 g PO DAILY 10/21/23 05/11/24 H istory (Metamucil) mecobalamin (vitamin B12) 500 mcg mcg PO 12/11/23 05/11/24 History chewable tablet FreeStyle Azucena 3 Sensor #2 ea 01/20/24 04/15/24 Rx (blood-glucose sensor) biotin 1 mg capsule 1 mg PO QDAY 01/20/24 05/11/24 His tory insulin glargine 100 unit/mL (3 18 unit (0.18 mL) subcut QHS #15 m L 01/20/24 05/11/24 Rx mL) subcutaneous pen insulin lispro 100 unit/mL 35 unit (0.35 mL) subcut TID #96 m L 01/20/24 05/11/24 Rx subcutaneous pen (Humalog KwikPen (U-100) Insulin) Saccharomyces boulardii 250 mg 250 mg PO ONCE 04/15/24 05/11/24 H istory capsule (Probiotic (S.boulardii)) amlodipine 10 mg tablet 10 mg PO DAILY #90 tabs 04/15/24 0 05/11/24 Rx metoprolol succinate 50 mg 50 mg PO DAILY #90 tabs 04/15/24 0 05/11/24 Rx tablet,extended release 24 hr omeprazole 40 mg capsule,delayed 40 mg PO QDAY #90 caps 04/15/24 Rx release paroxetine HCl 10 mg tablet 10 mg PO DAILY #90 tabs 04/15/24 0 05/11/24 Rx pen needle, diabetic 32 gauge x #400 ea 05/11/24 05/11/24 Rx 5/32 (BD Ultra-Fine Ale Pen Needle) Have you fallen in the past year?: No PFSH Medical History Chronic cough Flu vaccine need Cardiology follow-up encounter History of echocardiogram History of stress test Diabetes FH: sudden cardiac (SCD) Retinal hemorrhage, right eye Hyperopia of both eyes with regular astigmatism and presbyopia Epiretinal membrane (ERM) of left eye Combined forms of age-related cataract, bilateral Venous insufficiency of both lower extremities Insulin dependent diabetes mellitus Kidney stones Injury of head and neck Leg cramps Anxiety and depression Osteoarthritis of knee Meralgia paresthetica of left side Sacroiliitis Sebaceous cyst of breast Axillary adenopathy Radial scar of right breast Mixed hyperlipidemia Diabetes type 2, controlled Brain bleed History of kidney stones Migraine Breast lump Arthritis Seasonal allergic rhinitis Surgical History Hx of colonoscopy History of total knee replacement (TKR) History of excision of epidermal inclusion cyst S/P lumpectomy, right breast S/P breast biopsy, left Hx of knee surgery Hx of hand surgery Hx of tubal ligation History of Family History Mother Breast cancer Arthritis Father Arthritis Diabetes Hypertension High cholesterol Lung cancer Brother Asthma Sister Sudden cardiac Social History household members: spouse current occupational status: retired Smoking Status: Never smoker second hand exposure: No alcohol intake: current alcohol intake frequency: holidays/special occasions only substance use type: does not use what type of physical activity do you participate in: walking frequency: 1-2 times per week seatbelt use: always HPI HPI Chief Complaint: Diabetes Details: KIRILL ALMAZAN, is a 69 F who presents to the office today for follow up. A1C is 8% She is taking basal bolus. She is using DexBecual CGM Upload shows very high blood sugars after breakfast and spikes after lunch and supper. She is retired and having some difficulty adjusting. She had COVID recently and is not bouncing back. She is on a statin. (more content not included)... Normal [facility] Laboratory - Hematology and Cell countsOrdered By: Steve Metz on 05-11-2024 HbA1c (Bld) [Mass fraction] 8.0 % High 4.2-6.3 [facility] Internal Medicine Office Vis iton 04-15-2024 Internal Medicine Office Visit [facility] [address] [place] [address] [address] [place] [address] OFFICE VISIT Date of Service: 04/15/24 MR#: [id number] Acct: [id number] Name: KIRILL ALMAZAN EMMANUEL Rep #: [id number] : 1955 Provider: Dr. Maricarmen brothers MD Age/Sex: 69/F [place] [facility] [place] Status: Signed Intake Vital Signs 12/11/23 08:15 01/20/24 13:48 04/15/24 09:03 Height 5 ft 2 in 5 ft 2 in 5 ft 2 in Weight: 241 lb BMI 44.0 BP 134/82 H Blood Pressure Location Lt brachial Position Sitting Respiration 17 Pulse 80 Pulse Source Monitor Temp 97.3 F L Temp Source Temporal Pulse Oximetry (%) 96 Oxygen Delivery Method room air Intake Visit Reasons: 4 M FU Chief Complaint: 4 M fu Is patient in pain?: No Allergies adhesive Allergy (Mild, Verified 04/15/24 09:04) Hives meperidine (From Demerol) Adverse Reaction (Unknown, Verified 04/15/24 09:04) Vomiting Medications ???Medication ???Instructions ???Recorded ???Confirmed ???Type atorvastatin 10 mg tablet 10 mg PO DAILY #90 tabs 08/09/23 0 04/15/24 Rx cholecalciferol (vitamin D3) 25 25 mcg PO DAILY 10/21/23 04/15/24 History mcg (1,000 unit) capsule loratadine 10 mg tablet (Claritin) 10 mg PO DAILY 10/21/23 04/15/24 History psyllium husk 0.4 gram capsule 0.4 g PO DAILY 10/21/23 04/15/24 H istory (Metamucil) mecobalamin (vitamin B12) 500 mcg mcg PO 12/11/23 04/15/24 History chewable tablet FreeStyle Azucena 3 Sensor #2 ea 01/20/24 04/15/24 Rx (blood-glucose sensor) biotin 1 mg capsule 1 mg PO QDAY 01/20/24 04/15/24 His tory insulin glargine 100 unit/mL (3 18 unit (0.18 mL) subcut QHS #15 m L 01/20/24 04/15/24 Rx mL) subcutaneous pen insulin lispro 100 unit/mL 35 unit (0.35 mL) subcut TID #96 m L 01/20/24 04/15/24 Rx subcutaneous pen (Humalog KwikPen (U-100) Insulin) pen needle, diabetic 32 gauge x #100 ea 01/20/24 04/15/24 Rx 5/32 (BD Ultra-Fine Ale Pen Needle) benzonatate 200 mg capsule 200 mg PO TID PRN cough #20 caps 0 03/31/24 04/15/24 Rx Saccharomyces boulardii 250 mg 250 mg PO ONCE 04/15/24 04/15/24 H istory capsule (Probiotic (S.boulardii)) amlodipine 10 mg tablet 10 mg PO DAILY #90 tabs 04/15/24 0 04/15/24 Rx metoprolol succinate 50 mg 50 mg PO DAILY #90 tabs 04/15/24 0 04/15/24 Rx tablet,extended release 24 hr omeprazole 40 mg capsule,delayed 40 mg PO QDAY #90 caps 04/15/24 Rx release paroxetine HCl 10 mg tablet 10 mg PO DAILY #90 tabs 04/15/24 0 04/15/24 Rx Have you fallen in the past year?: Yes (X1) [facility] Medical History (Updated 04/15/24 @ 13:[address] Maricarmen Tavares MD) Chronic cough Flu vaccine need Cardiology follow-up encounter History of echocardiogram History of stress test Diabetes FH: sudden cardiac (SCD) Retinal hemorrhage, right eye Hyperopia of both eyes with regular astigmatism and presbyopia Epiretinal membrane (ERM) of left eye Combined forms of age-related cataract, bilateral Venous insufficiency of both lower extremities Insulin dependent diabetes mellitus Kidney stones Injury of head and neck Leg cramps Anxiety and depression Osteoarthritis of knee Meralgia paresthetica of left side Sacroiliitis Sebaceous cyst of breast Axillary adenopathy Radial scar of right breast Mixed hyperlipidemia Diabetes type 2, controlled Brain bleed History of kidney stones Migraine Breast lump Arthritis Seasonal allergic rhinitis Surgical History Hx of colonoscopy History of total knee replacement (TKR) History of excision of epidermal inclusion cyst S/P lumpectomy, right breast S/P breast biopsy, left Hx of knee surgery Hx of hand surgery Hx of tubal ligation History of Family History Mother Breast cancer Arthritis Father Arthritis Diabetes Hypertension High cholesterol Lung cancer Brother Asthma Sister Sudden cardiac Social History household members: spouse current occupational status: retired Smoking Status: Never smoker second hand exposure: No alcohol intake: current alcohol intake frequency: holidays/special occasions only substance use type: does not use what type of physical activity do you participate in: walking frequency: 1-2 times per week seatbelt use: always HPI HPI Chief Complaint: 4 M fu Details: KIRILL ALMAZAN, is a 69 F who presents to the office today for follow-up of her chronic conditions. Reports ongoing cough. This has been present for at least a year. Workup so far with no significant concerns. Dry cough, worse at night. Status post recent episode of COVID with worsening cough. 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 Normal [facility] Urgent Care Visit Reporton 0 03-31-2024 Urgent Care Visit Report [facility] [address] [place] [address] OFFICE VISIT Date of Service: 03/31/24 MR#: [id number] Acct: [id number] Name: KIRILL ALMAZAN Rep #: [id number] : 1955 Provider: MICHAEL Anderson Age/Sex: 69/F Location: [facility] Status: Signed Intake Vital Signs 01/20/24 13:48 03/31/24 09:11 Height 5 ft 2 in Weight: 249 lb BMI 45.5 BP 127/79 H 120/70 Blood Pressure Location Rt brachial Lt brachial Position Sitting Sitting Respiration 12 Pulse 85 112 H Pulse Source Monitor NIBP Temp 99.7 F H Temp Source Oral Pulse Oximetry (%) 92 94 Oxygen Delivery Method room air room air Intake Visit Reasons: Cough Chief Complaint: cough, runny nose, sinus congestion Heel Lift Gouger Required: No Accompanied by: Allergies adhesive Allergy (Mild, Verified 03/31/24 09:12) Hives meperidine (From Demerol) Adverse Reaction (Unknown, Verified 03/31/24 09:12) Vomiting Medications ???Medication ???Instructions ???Recorded ???Confirmed ???Type paroxetine HCl 10 mg tablet 10 mg PO DAILY #90 tabs 02/08/23 03/31/24 Rx amlodipine 10 mg tablet 10 mg PO DAILY #90 tabs 06/19/23 03/31/24 Rx atorvastatin 10 mg tablet 10 mg PO DAILY #90 tabs 08/09/23 03/31/24 Rx cholecalciferol (vitamin D3) 25 25 mcg PO DAILY 10/21/23 03/31/24 History mcg (1,000 unit) capsule loratadine 10 mg tablet (Claritin) 10 mg PO DAILY 10/21/23 03/31/24 History psyllium husk 0.4 gram capsule 0.4 g PO DAILY 10/21/23 03/31/24 History (Metamucil) mecobalamin (vitamin B12) 500 mcg mcg PO 12/11/23 03/31/24 History chewable tablet metoprolol succinate 50 mg 50 mg PO DAILY #90 tabs 12/11/23 03/31/24 Rx tablet,extended release 24 hr FreeStyle Azucena 3 Sensor #2 ea 01/20/24 03/31/24 Rx (blood-glucose sensor) biotin 1 mg capsule 1 mg PO QDAY 01/20/24 03/31/24 History insulin glargine 100 unit/mL (3 18 unit (0.18 mL) subcut QHS #15 mL 01/20/24 03/31/24 Rx mL) subcutaneous pen insulin lispro 100 unit/mL 35 unit (0.35 mL) subcut TID #96 mL 01/20/24 03/31/24 Rx subcutaneous pen (Humalog KwikPen (U-100) Insulin) pen needle, diabetic 32 gauge x #100 ea 01/20/24 03/31/24 Rx 5/32 (BD Ultra-Fine Ale Pen Needle) benzonatate 200 mg capsule 200 mg PO TID PRN cough #20 caps 03/31/24 03/31/24 Rx dexamethasone 6 mg tablet 6 mg PO DAILY #5 tabs 03/31/24 03/31/24 Rx Have you fallen in the past year?: No Nurse's Note: patient here for sinus congestion, cough, fever x1 day. Ran rapid flu/covid test. [facility] Medical History (Updated 01/20/24 @ 15:[address] Steve Metz MD) Flu vaccine need Cardiology follow-up encounter History of echocardiogram History of stress test Diabetes FH: sudden cardiac (SCD) Retinal hemorrhage, right eye Hyperopia of both eyes with regular astigmatism and presbyopia Epiretinal membrane (ERM) of left eye Combined forms of age-related cataract, bilateral Venous insufficiency of both lower extremities Insulin dependent diabetes mellitus Kidney stones Injury of head and neck Leg cramps Anxiety and depression Osteoarthritis of knee Meralgia paresthetica of left side Sacroiliitis Sebaceous cyst of breast Axillary adenopathy Radial scar of right breast Mixed hyperlipidemia Diabetes type 2, controlled Brain bleed History of kidney stones Migraine Breast lump Arthritis Seasonal allergic rhinitis Surgical History Hx of colonoscopy History of total knee replacement (TKR) History of excision of epidermal inclusion cyst S/P lumpectomy, right breast S/P breast biopsy, left Hx of knee surgery Hx of hand surgery Hx of tubal ligation History of Family History Mother Breast cancer Arthritis Father Arthritis Diabetes Hypertension High cholesterol Lung cancer Brother Asthma Sister Sudden cardiac Social History household members: spouse current occupational status: retired Smoking Status: Never smoker second hand exposure: No alcohol intake: current alcohol intake frequency: holidays/special occasions only substance use type: does not use what type of physical activity do you participate in: walking frequency: 1-2 times per week seatbelt use: always HPI HPI Chief Complaint: cough, runny nose, sinus congestion Details: KIRILL ALMAZAN, is a 69 F who presents to the office today for initial evaluation at the [facility] for approximately 24-hour history of chills, cough, headache, myalgias, fatigue, sore congestion/runny nose, diarrhea. No complaints of chest pain or shortness of breath or dyspnea on exertion. Cloracetin taken to assist. Several (more content not included)... Normal [facility] Dexa Bone Density Studyon Dexa Bone Density Study [facility] [address] [place] [id number] Dexa Bone Density Study MR#: [id number] Acct: [id number] Name: KIRILL ALMAZAN EMMANUEL Rep #: [id number] : 1955 F 68 From: Juanito garcia MD PCP: Dr. Maricarmen Tavares MD Status: REG [facility] Study: Dexa Bone Density Study Date of Exam: 02/25/24 Exam# [id number] Ordering Dr: Steve Metz MD -[id number] STUDY: DUAL ENERGY X-RAY ABSORPTIOMETRY / DXA REASON FOR EXAM: Female, 68 years old. Screening, fall TECHNIQUE: Bone Mineral Density (BMD) measurements of lumbar spine and bilateral hips were obtained. COMPARISON: None. FINDINGS: Lumbar Spine (L1-L4): g/cm2 (0.981) / T-score (-0.6) / Z-score (1.4) Findings are suggestive of normal bone density with a low fracture risk. Left Femur Total: g/cm2 (0.847) / T-score (-0.8) / Z-score (0.6) Left Femoral Neck: g/cm2 (0.664) / T-score (-1.7) / Z-score (0.0) Right Femur Total: g/cm2 (0.814) / T-score (-1.0) / Z-score (0.3) Right Femoral Neck: g/cm2 (0.704) / T-score (-1.3) / Z-score (0.4) BD/Dexa Bone Density Study IMPRESSION: The patient is considered osteopenic as outlined below according to World Matt Organization (WHO) criteria with a moderate fracture risk. Reference Information: The T-score is the number of standard deviations above or below the standard which is normal for young adults at their peak bone mineral density. The World Health Organization (WHO) interprets the T-scores as follows: Above -1 Normal bone density Between -1 and -2.5 Osteopenia Equal to / or below -2.5 Osteoporosis As a practical clinical guideline, osteopenia may be graded as follows: Mild -1 through -1.5 Moderate -1.6 through -2.0 Severe -2.1 through -2.4 The Z-score is the number of standard deviations above or below age-matched controls. A Z-score of less than -1.5 would be considered abnormal. References: 1. NIH Osteoporosis and Related Bone Diseases www osteo.org 2. International Society for Clinical Densitometry www iscd.org 3. National Osteoporosis Foundation www nof.org Electronically Signed: Juanito Willoughby MD at 8:33 EST , CC: Dr. Maricarmen Tavares MD; Dr. Steve Metz MD [employer] Orientator: Signed Normal [facility] Endocrinology Visit Reporton 01-20-2024 Endocrinology Visit Report [facility] [address] [place] [address] OFFICE VISIT Date of Service: 01/20/24 MR#: [id number] Acct: [id number] Name: KIRILL ALMAZAN EMMANUEL Rep #: [id number] : 1955 Provider: Xavier Noland Age/Sex: 68/F [place] [facility] [place]: Signed Intake Vital Signs 09/16/23 13:45 12/11/23 08:15 01/20/24 13:48 Height 5 ft 2 in 5 ft 2 in 5 ft 2 in Weight: 244 lb 249 lb BMI 44.6 45.5 BP 122/80 H 127/79 H Blood Pressure Location Lt brachial Rt brachial Position Sitting Sitting Respiration 16 Pulse 74 85 Pulse Source Monitor Monitor Temp 97.6 F L Temp Source Temporal Pulse Oximetry (%) 98 92 Oxygen Delivery Method room air room air Intake Visit Reasons: 4 M FU Chief Complaint: Follow-up of her chronic medical conditions Is patient in pain?: No Allergies adhesive Allergy (Mild, Verified 12/11/23 08:09) Hives meperidine (From Demerol) Adverse Reaction (Unknown, Verified 12/11/23 08:09) Vomiting Medications ???Medication ???Instructions ???Recorded ???Confirmed ???Type paroxetine HCl 10 mg tablet 10 mg PO DAILY #90 tabs 02/08/23 01/20/24 Rx amlodipine 10 mg tablet 10 mg PO DAILY #90 tabs 06/19/23 01/20/24 Rx atorvastatin 10 mg tablet 10 mg PO DAILY #90 tabs 08/09/23 01/20/24 Rx cholecalciferol (vitamin D3) 25 25 mcg PO DAILY 10/21/23 01/20/24 History mcg (1,000 unit) capsule loratadine 10 mg tablet (Claritin) 10 mg PO DAILY 10/21/23 01/20/24 History psyllium husk 0.4 gram capsule 0.4 g PO DAILY 10/21/23 01/20/24 History (Metamucil) mecobalamin (vitamin B12) 500 mcg mcg PO 12/11/23 01/20/24 History chewable tablet metoprolol succinate 50 mg 50 mg PO DAILY #90 tabs 12/11/23 01/20/24 Rx tablet,extended release 24 hr FreeStyle Azucena 3 Sensor #2 ea 01/20/24 01/20/24 Rx (blood-glucose sensor) biotin 1 mg capsule 1 mg PO QDAY 01/20/24 01/20/24 History insulin glargine 100 unit/mL (3 18 unit (0.18 mL) subcut QHS #15 mL 01/20/24 01/20/24 Rx mL) subcutaneous pen insulin lispro 100 unit/mL 35 unit (0.35 mL) subcut TID #96 mL 01/20/24 01/20/24 Rx subcutaneous pen (Humalog KwikPen (U-100) Insulin) pen needle, diabetic 32 gauge x #100 ea 01/20/24 01/20/24 Rx 5/32 (BD Ultra-Fine Ale Pen Needle) Have you fallen in the past year?: Yes [facility] Medical History (Updated 01/20/24 @ 15:[address] Steve Metz MD) Flu vaccine need Cardiology follow-up encounter History of echocardiogram History of stress test Diabetes FH: sudden cardiac (SCD) Retinal hemorrhage, right eye Hyperopia of both eyes with regular astigmatism and presbyopia Epiretinal membrane (ERM) of left eye Combined forms of age-related cataract, bilateral Venous insufficiency of both lower extremities Insulin dependent diabetes mellitus Kidney stones Injury of head and neck Leg cramps Anxiety and depression Osteoarthritis of knee Meralgia paresthetica of left side Sacroiliitis Sebaceous cyst of breast Axillary adenopathy Radial scar of right breast Mixed hyperlipidemia Diabetes type 2, controlled Brain bleed History of kidney stones Migraine Breast lump Arthritis Seasonal allergic rhinitis Surgical History Hx of colonoscopy History of total knee replacement (TKR) History of excision of epidermal inclusion cyst S/P lumpectomy, right breast S/P breast biopsy, left Hx of knee surgery Hx of hand surgery Hx of tubal ligation History of Family History Mother Breast cancer Arthritis Father Arthritis Diabetes Hypertension High cholesterol Lung cancer Brother Asthma Sister Sudden cardiac Social History household members: spouse current occupational status: retired Smoking Status: Never smoker second hand exposure: No alcohol intake: current alcohol intake frequency: holidays/special occasions only substance use type: does not use what type of physical activity do you participate in: walking frequency: 1-2 times per week seatbelt use: always HPI HPI Chief Complaint: Follow-up of her chronic medical conditions Details: KIRILL ALMAZAN, is a 68 F who presents to the office today for follow up. A1C is 8.1% GMI is 7.6% She is taking basal bolus. She is using Azucena CGM. Upload shows highs post meal, especially breakfast. I thought I was doing well She is on statin. Labs reviewed. ROS Const Constitutional: No fatigue or weight change ENT ENT: No dizziness/vertigo Cardio Cardiology: No chest pain at rest, chest pain with exertion, shortness of breath or palpitations Skin Skin: No wounds Endo (more content not included)... Normal [facility] CBC W/Diff, Automatedon 11-0 Absolute Lymph 2.67 X10 3/uL Normal 0.83-4.51 [facility] Comment on above: Performed By: #### L 100.0100 #### [facility] [address] [place], [address] Absolute Neut 6.2 X10 3/uL Normal 2.0-7.7 [facility] Comment on above: Performed By: #### L 100.0100 #### [facility] [address] [place], [address] Basophils/100 WBC (Bld) 0.5 % Normal 0-1 [facility] Comment on above: Performed By: #### L 100.0100 #### [facility] [address] [place], [address] Eosinophils/100 WBC (Bld) 1.3 % Normal 0-5 [facility] Comment on above: Performed By: #### L 100.0100 #### [facility] [address] [place], [address] Erythrocyte distribution width (RBC) [Ratio] 14.9 % High 11.6-14.6 [facility] Comment on above: Performed By: #### L 100.0100 #### [facility] [address] [place], [address] Hematocrit (Bld) [Volume fraction] 38.4 % Normal 37-47 [facility] Comment on above: Performed By: #### L 100.0100 #### [facility] [address] [place], [address] Hemoglobin (Bld) [Mass/Vol] 11.6 g/dL Low 12.0-15.0 [facility] Comment on above: Performed By: #### L 100.0100 #### [facility] [address] [place], [address] IG% 0.300 Normal 0.0-0.9 [facility] Comment on above: Result Comment: IG% - Immature Granulocytes (promyelocytes, myelocytes and metamyelocytes) > 1% indicates that a LEFT SHIFT is Present. Performed By: #### L 100.0100 #### [facility] [address] [place], [address] Lymphocytes/100 WBC (Bld) 27.5 % Normal 19-41 [facility] Comment on above: Performed By: #### L 100.0100 #### [facility] [address] [place], [address] MCH (RBC) [Entitic mass] 27.6 pg Normal 27.0-32.0 [facility] Comment on above: Performed By: #### L 100.0100 #### [facility] [address] [place], [address] MCHC (RBC) [Mass/Vol] 30.2 g/dL Low 32-36 [facility] Comment on above: Performed By: #### L 100.0100 #### [facility] [address] [place], [address] MCV (RBC) [Entitic vol] 91.2 fL Normal 81-99 [facility] Comment on above: Performed By: #### L 100.0100 #### [facility] [address] [place], [address] Monocytes/100 WBC (Bld) 6.6 % Normal 0-10 [facility] Comment on above: Performed By: #### L 100.0100 #### [facility] [address] [place], [address] Neutrophils/100 WBC (Bld) 63.8 % Normal 47-70 [facility] Comment on above: Performed By: #### L 100.0100 #### [facility] [address] [place], [address] Nucleated RBC (Bld) [#/Vol] 0 10*3/uL Normal 0-5 [facility] Comment on above: Performed By: #### L 100.0100 #### [facility] [address] [place], [address] Platelet mean volume (Bld) [Entitic vol] 10.7 fL Normal 6.2-12.0 [facility] Comment on above: Performed By: #### L 100.0100 #### [facility] [address] [place], [address] Platelets (Bld) [#/Vol] 432 10*3/uL Normal 150-450 [facility] Comment on above: Performed By: #### L 100.0100 #### [facility] [address] [place], [address] RBC (Bld) [#/Vol] 4.21 10*6/uL Normal 4.2-5.4 [facility] Comment on above: Performed By: #### L 100.0100 #### [facility] [address] [place], [address] RDW SD 50.0 fl High 35.1-43.9 [facility] Comment on above: Performed By: #### L 100.0100 #### [facility] [address] [place], [address] WBC (Bld) [#/Vol] 9.7 10*3/uL Normal 4.4-11.0 [facility] Comment on above: Performed By: #### L 100.0100 #### [facility] [address] [place], [address] Comprehensive Metabolic Prof [facility] 01-14-2024 Albumin [Mass/Vol] 2.9 g/dL Low 3.2-5.0 [facility] Comment on above: Performed By: #### L 501.9520, L500.4100, L500.4050, L506.0400, L506.1000 #### [facility] [address] [place], [address] Albumin/Globulin [Mass ratio] 0.5 {ratio} Low 0.9-2.4 [facility] Comment on above: Performed By: #### L 501.9520, L500.4100, L500.4050, L506.0400, L506.1000 #### [facility] [address] [place], [address] ALK P 87 U/L Normal 45-117 [facility] Comment on above: Performed By: #### L 501.9520, L500.4100, L500.4050, L506.0400, L506.1000 #### [facility] [address] [place], [address] ALT [Catalytic activity/Vol] 12 U/L Low 13-56 [facility] Comment on above: Performed By: #### L 501.9520, L500.4100, L500.4050, L506.0400, L506.1000 #### [facility] [address] [place], [address] AST [Catalytic activity/Vol] 8 U/L Low 15-37 [facility] Comment on above: Performed By: #### L 501.9520, L500.4100, L500.4050, L506.0400, L506.1000 #### [facility] [address] [place], [address] Bilirubin [Mass/Vol] 0.50 mg/dL Normal 0.20-1.00 [facility] Comment on above: Result Comment: For patients on eltrombopag therapy, use of Dimension [place] TBIL is not recommended. Performed By: #### L 501.9520, L500.4100, L500.4050, L506.0400, L506.1000 #### [facility] [address] [place], [address] BUN/CRE 16.4 RATIO Normal 10-20 [facility] Comment on above: Performed By: #### L 501.9520, L500.4100, L500.4050, L506.0400, L506.1000 #### [facility] [address] [place], [address] CA,Total 9.8 mg/dL Normal 8.5-10.1 [facility] Comment on above: Performed By: #### L 501.9520, L500.4100, L500.4050, L506.0400, L506.1000 #### [facility] [address] [place], [address] Chloride [Moles/Vol] 100 mmol/L Normal 98-107 [facility] Comment on above: Performed By: #### L 501.9520, L500.4100, L500.4050, L506.0400, L506.1000 #### [facility] [address] [place], [address] CO2 [Moles/Vol] 29.0 mmol/L Normal 21.0-32.0 [facility] Comment on above: Performed By: #### L 501.9520, L500.4100, L500.4050, L506.0400, L506.1000 #### [facility] [address] [place], [address] Creatinine [Mass/Vol] 0.98 mg/dL Normal 0.55-1.02 [facility] Comment on above: Result Comment: The validity of the calculated GFR GFRAA in patients over 70 years has not been determined. Clinical correlation is essential. Performed By: #### L 501.9520, L500.4100, L500.4050, L506.0400, L506.1000 #### [facility] [address] [place], [address] EST GFR - AA 73 mL/min Normal >60 [facility] Comment on above: Result Comment: Afri can [place] GFR Calc Performed By: #### L 501.9520, L500.4100, L500.4050, L506.0400, L506.1000 #### [facility] [address] [place], [address] GAP 7 Normal 5-15 [facility] Comment on above: Performed By: #### L 501.9520, L500.4100, L500.4050, L506.0400, L506.1000 #### [facility] [address] [place], [address] GFR/1.73 sq M.predicted among non-blacks MDRD (S/P/Bld) [Vol rate/Area] 60 mL/min/{1.73_m2} Normal >60 [facility] Comment on above: Result Comment: Non- GFR Calc Performed By: #### L 501.9520, L500.4100, L500.4050, L506.0400, L506.1000 #### [facility] [address] [place], [address] Globulin (S) [Mass/Vol] 5.3 g/dL High 2.2-4.2 [facility] Comment on above: Performed By: #### L 501.9520, L500.4100, L500.4050, L506.0400, L506.1000 #### [facility] [address] [place], [address] Glucose [Mass/Vol] 161 mg/dL High 74-106 [facility] Comment on above: Result Comment: Fast ing Glucose result greater than or equal to 126 mg/dL suggests DIABETES MELLITUS per A.D.A. criteria. Performed By: #### L 501.9520, L500.4100, L500.4050, L506.0400, L506.1000 #### [facility] [address] [place], [address] Potassium [Moles/Vol] 4.0 mmol/L Normal 3.5-5.1 [facility] Comment on above: Performed By: #### L 501.9520, L500.4100, L500.4050, L506.0400, L506.1000 #### [facility] [address] [place], [address] Sodium [Moles/Vol] 135 mmol/L Low 136-145 [facility] Comment on above: Performed By: #### L 501.9520, L500.4100, L500.4050, L506.0400, L506.1000 #### [facility] [address] [place], [address] T PROT 8.2 g/dL Normal 6.4-8.2 [facility] Comment on above: Performed By: #### L 501.9520, L500.4100, L500.4050, L506.0400, L506.1000 #### [facility] [address] [place], [address] Urea nitrogen [Mass/Vol] 16 mg/dL Normal 7-18 [facility] Comment on above: Performed By: #### L 501.9520, L500.4100, L500.4050, L506.0400, L506.1000 #### [facility] [address] [place], [address] Lipid Profileon 01-14-2024 Cholesterol [Mass/Vol] 135 mg/dL Normal 200 [facility] Comment on above: Result Comment: <200 mg/dL Desirable 200-240 mg/dL Borderline >240 mg/dL High Risk Performed By: #### L 501.9520, L500.4100, L500.4050, L506.0400, L506.1000 #### [facility] [address] [place], [address] Cholesterol in HDL [Mass/Vol] 54 mg/dL Normal [facility] Comment on above: Result Comment: The drugs N-Acetylcysteine and Metamizole may falsely depress this assay. Reference Range HDL <40 mg/dL Low HDL Cholesterol HDL >or= 60 mg/dL High HDL Cholesterol Performed By: #### L 501.9520, L500.4100, L500.4050, L506.0400, L506.1000 #### [facility] [address] [place], [address] Cholesterol in LDL [Mass/Vol] 63 mg/dL Normal 0-130 [facility] Comment on above: Performed By: #### L 501.9520, L500.4100, L500.4050, L506.0400, L506.1000 #### [facility] [address] [place], [address] Cholesterol in VLDL [Mass/Vol] 18 mg/dL Normal 5-40 [facility] Comment on above: Performed By: #### L 501.9520, L500.4100, L500.4050, L506.0400, L506.1000 #### [facility] [address] [place], [address] Triglyceride [Mass/Vol] 88 mg/dL Normal [facility] Comment on above: Result Comment: The drugs N-Acetylcysteine and Metamizole may falsely depress this assay. Serum Triglycerides Reference Interval Normal <150 mg/dL Borderline high 150 - 199 mg/dL High 200 - 499 mg/dL Very High > or = 500 mg/dL Performed By: #### L 501.9520, L500.4100, L500.4050, L506.0400, L506.1000 #### [facility] [address] [place], [address] T4 Free Directon 01-14-2024 T4 FREE DIRECT 0.92 ng/dL Normal 0.76-1.46 [facility] Comment on above: Performed By: #### L 501.9520, L500.4100, L500.4050, L506.0400, L506.1000 #### [facility] [address] [place], [address] Thyroid Stim Hormone (TSH)on 01-14-2024 TSH 1.830 uIU/mL Normal 0.358-3.740 [facility] Comment on above: Performed By: #### L 501.9520, L500.4100, L500.4050, L506.0400, L506.1000 #### [facility] [address] [place], [place], [address] Vitamin D,25 Hydroxyon 01-13 Vitamin D 25-OH 32.2 ng/mL Normal [facility] Comment on above: Result Comment: Deysi min D 25(OH) Status Range Deficiency <20 ng/mL (50nmol/L) Insufficiency 20 - 30 ng/mL (50 - 75 nmol/L) Sufficiency 30 - 100 ng/mL (75 - 250 nmol/L) Toxicity >100 ng/mL (>250 nmol/L) Performed By: #### L 501.9520, L500.4100, L500.4050, L506.0400, L506.1000 #### [facility] [address] [place], [place], [address] Cervical or vaginal specimen microscopic examination by liquid based cytology (reportOrdered By: Angeles Rahman on 06-19-2023 Cytology report Cyto stain.thin prep Doc (Cvx/Vag) Comment . [facility] Comment on above: Criteria not met, HP V Genotype not performed.Performed at: [facility] [id number] Director: Marilee Lantigua MD, Phone: [phone] at: =[facility] [id number] Director: Marilee Lantigua MD, Phone: [phone] Cervical or vagninal specime n microscopic examination by cytology stain (reported asOrdered By: Angelse Rahman on 06-19-2023 Cytology report Cyto stain Doc (Cvx/Vag) Comment . [facility] Comment on above: The Pap smear is a s creening test designed to aid in thedetection of premalignant and malignant conditions of theuterine cervix. It is not a diagnostic procedure andshould not be used as the sole means of detecting cervicalcancer. Both false-positive and false-negative reports dooccur. Detection in cervical specim en of any of human papilloma virus (HPV) 16, 18, 31, 33,Ordered By: Angeles Rahman on 06-19-2023 HPV 16+18+31+33+35+39+45+51+ 52+56+58+59+66+68 DNA Probe+sig amp Ql (Cvx) Negative Negative [facility] Comment on above: This nucleic acid am plification test detects fourteen high-risk HPV types (16,18,31,33,35,39,45,51,52,56,58,59,66,68)without differentiation. Laboratory - CytologyOrdered By: Angeles Rahman on 06-19-2023 Bilingual Customer Service Specialist Cyto stain Nom (Cvx/Vag) [ID] Comment . [facility] Comment on above: Maria Alejandra Rm, Cyto technologist (ASCP) Laboratory - Miscellaneous t estsOrdered By: Angeles Rahman on 06-19-2023 Service comment (Unsp spec) [Interp] . . [facility] Thin prep Papanicolaou smear with manual screeningOrdered By: Angeles Rahman on 06-19-2023 Thin prep Papanicolaou smear with manual screening Comment . [facility] Comment on above: NEGATIVE FOR INTRAEP ITHELIAL LESION OR MALIGNANCY. This liquid based Th inPrep(R) pap test was screened withthe use of an image guided system. Basophil percentageOrdered B y: Maricarmen Tavares on 05-29-2023 Basophil percentage < 1.0 mg/dL 0.55-1.02 [facility] No Panel InformationOrdered By: Maricarmen Tavares on 05-29-2023 Bedside Estimated GFR (eGFR) > 60.0000 mL/min >60 [facility] Laboratory - Hematology and Cell countson 05-13-2023 HbA1c (Bld) [Mass fraction] 8.0 % 4.2-6.3 [facility] - Hematology and Cell countson 03-07-2023 HbA1c (Bld) [Mass fraction] 8.8 % [facility] Absolute lymphocyte countOrd ered By: Maricarmen Tavares on 02-08-2023 Lymphocytes Auto (Unsp spec) [#/Vol] 1.85 10*3/uL 0.83-4.51 [facility] Basophil percentageOrdered B y: Maricarmen Tavares on 02-08-2023 Basophils/100 WBC (Bld) 0.4 % 0-1 [facility] Bilirubin [Mass/Vol] 0.50 mg/dL 0.20-1.00 [facility] Comment on above: For patients on eltr ombopag therapy, use of Dimension [place] TBIL is not recommended. Chloride [Moles/Vol] 103 mmol/L 98-107 [facility] Cholesterol [Mass/Vol] 163 mg/dL <200 [facility] Comment on above: <200 mg/dL Desirable 200-240 mg/dL Borderline >240 mg/dL High Risk Eosinophils/100 WBC (Bld) 1.7 % 0-5 [facility] Glucose [Mass/Vol] 308 mg/dL 74-106 [facility] Comment on above: Glucose result great er than or equal to 200 mg/dLsuggests DIABETES MELLITUS per A.D.A. criteria. Neutrophils (Bld) [#/Vol] 5.0 10*3/uL 2.0-7.7 [facility] Neutrophils/100 WBC (Bld) 65.4 % 47-70 [facility] Potassium [Moles/Vol] 4.4 mmol/L 3.5-5.1 [facility] Protein [Mass/Vol] 7.4 g/dL 6.4-8.2 [facility] Sodium [Moles/Vol] 137 mmol/L 136-145 [facility] Triglyceride [Mass/Vol] 116 mg/dL <199 [facility] Comment on above: The drugs N-Acetylcy steine and Metamizole may falsely depress this assay.Serum Triglycerides Reference Interval Normal <150 mg/dL Borderline high 150 - 199 mg/dL High 200 - 499 mg/dL Very High > or = 500 mg/dL WBC (Bld) [#/Vol] 7.6 10*3/uL 4.4-11.0 [facility] Blood erythrocytes count (nu mber/volume)Ordered By: Maricarmen Tavares on 02-08-2023 RBC (Bld) [#/Vol] 4.42 10*6/uL 4.2-5.4 [facility] Blood hemoglobin measurement (mass/volume)Ordered By: Maricarmen Tavares on 02-08-2023 Hemoglobin (Bld) [Mass/Vol] 13.0 g/dL 12.0-15.0 [facility] Blood lymphocytes/100 leukoc ytesOrdered By: Maricarmen Tavares on 02-08-2023 Lymphocytes/100 WBC (Bld) 24.4 % 19-41 [facility] Blood monocytes/100 leukocyt esOrdered By: krystin Tavares on 02-08-2023 Monocytes/100 WBC (Bld) 6.9 % 0-10 [facility] Blood platelet mean volumeOr dered By: Maricarmen Tavares on 02-08-2023 Platelet mean volume (Bld) [Entitic vol] 11.3 fL 6.2-12.0 [facility] Determination of erythrocyte mean corpuscular volume (MCV)Ordered By: Maricarmen Tavares on 02-08-2023 MCV (RBC) [Entitic vol] 96.6 fL 81-99 [facility] Hematocrit Auto (Bld) [Volum e fraction]Ordered By: Matibos[place] farmsjose Tavares on 02-08-2023 Hematocrit (Bld) [Volume fraction] 42.7 % 37-47 [facility] - Chemistry and C hemistry - challengeOrdered By: [facility] on 02-08-2023 ALP [Catalytic activity/Vol] 74 U/L 45-117 [facility] ALT [Catalytic activity/Vol] 16 U/L 13-56 [facility] CO2 [Moles/Vol] 31.0 mmol/L 21.0-32.0 [facility] Globulin (S) [Mass/Vol] 4.2 g/dL 2.2-4.2 [facility] Urea nitrogen/Creatinine [Mass ratio] 17.0 mg/mg 10-20 [facility] - Hematology and Cell countsOrdered By: krystin Tavares on 02-08-2023 Erythrocyte distribution width (RBC) [Entitic vol] 49.9 fL 35.1-43.9 [facility] Erythrocyte distribution width (RBC) [Ratio] 13.9 % 11.6-14.6 [facility] Immature granulocytes/100 WBC (Bld) 1.200 % 0.0-0.9 [facility] Comment on above: IG% - Immature Granu locytes (promyelocytes, myelocytes and metamyelocytes) > 1% indicates that a LEFT SHIFT is Present. MCH (RBC) [Entitic mass] 29.4 pg 27.0-32.0 [facility] Nucleated RBC/100 WBC (Bld) [Ratio] 0 % 0-5 [facility] MCHC Auto (RBC) [Mass/Vol]Or dered By: Maricarmen Tavares on 02-08-2023 MCHC (RBC) [Mass/Vol] 30.4 g/dL 32-36 [facility] No Panel InformationOrdered By: Maricarmen Tavares on 02-08-2023 Estimated GFR (MDRD) Amer 82 mL/min >60 [facility] Comment on above: GFR Calc Estimated GFR (MDRD) Non-Af Amer 68 mL/min >60 [facility] Comment on above: Non- GFR Calc Platelets bldOrdered By: Nadeem Tavares on 02-08-2023 Platelets (Bld) [#/Vol] 313 10*3/uL 150-450 [facility] Serum or plasma albumin akanksha urement (mass/volume)Ordered By: Maricarmen Tavares on 02-08-2023 Albumin [Mass/Vol] 3.2 g/dL 3.2-5.0 [facility] Serum or plasma albumin/glob ulin mass ratioOrdered By: Maricarmen Tavares on 02-08-2023 Albumin/Globulin [Mass ratio] 0.8 {ratio} 0.9-2.4 [facility] Serum or plasma calcium akanksha urement (mass/volume)Ordered By: Maricarmen Tavares on 02-08-2023 Calcium [Mass/Vol] 8.8 mg/dL 8.5-10.1 [facility] Serum or plasma cholesterol in HDL measurement (mass/volume)Ordered By: Maricarmen Tavares on 02-08-2023 Cholesterol in HDL [Mass/Vol] 58 mg/dL >40 [facility] Comment on above: The drugs N-Acetylcy steine and Metamizole may falsely depress this assay. Reference Range HDL <40 mg/dL Low HDL Cholesterol HDL >or= 60 mg/dL High HDL Cholesterol Serum or plasma cholesterol in VLDL measurement (mass/volume)Ordered By: Maricarmen Tavares on 02-08-2023 Cholesterol in VLDL [Mass/Vol] 23 mg/dL 5-40 [facility] Serum or plasma creatinine m easurement (mass/volume)Ordered By: Maricarmen Tavares on 02-08-2023 Creatinine [Mass/Vol] 0.88 mg/dL 0.55-1.02 [facility] Comment on above: The validity of the calculated GFR & GFRAA in patients over 70 years has not been determined. Clinical correlation is essential. Serum or plasma low density lipoprotein (LDL) cholesterol measurement (mass/volume)Ordered By: Maricarmen Tavares on 02-08-2023 Cholesterol in LDL [Mass/Vol] 82 mg/dL 0-130 [facility] Serum or plasma urea nitroge n measurement (mass/volume)Ordered By: Maricarmen Tavares on 02-08-2023 Urea nitrogen [Mass/Vol] 15 mg/dL 7-18 [facility] Thin prep Papanicolaou smear with manual screeningOrdered By: Maricarmen Tavares on 02-08-2023 Thin prep Papanicolaou smear with manual screening 8 U/L 15-37 [facility] Thin prep Papanicolaou smear with manual screening 3 5-15 [facility] Laboratory - Hematology and Cell countson 10-16-2022 HbA1c (Bld) [Mass fraction] 7.7 % 4.2-6.3 [facility] Absolute lymphocyte countOrd ered By: Dr. Tavares on 05-02-2022 Lymphocytes Auto (Unsp spec) [#/Vol] 2.45 10*3/uL 0.83-4.51 [facility] Basophil percentageOrdered B y: Dr. Tavares on 05-02-2022 Basophils/100 WBC (Bld) 0.5 % 0-1 [facility] Bilirubin [Mass/Vol] 0.30 mg/dL 0.20-1.00 [facility] Comment on above: For patients on eltr ombopag therapy, use of Dimension [place] TBIL is not recommended. Chloride [Moles/Vol] 103 mmol/L 98-107 [facility] Eosinophils/100 WBC (Bld) 2.8 % 0-5 [facility] Glucose [Mass/Vol] 136 mg/dL 74-106 [facility] Comment on above: Fasting Glucose resu lt greater than or equal to 126 mg/dL suggests DIABETES MELLITUS per A.D.A. criteria. Neutrophils (Bld) [#/Vol] 5.1 10*3/uL 2.0-7.7 [facility] Neutrophils/100 WBC (Bld) 59.4 % 47-70 [facility] Potassium [Moles/Vol] 4.3 mmol/L 3.5-5.1 [facility] Protein [Mass/Vol] 7.4 g/dL 6.4-8.2 [facility] Sodium [Moles/Vol] 140 mmol/L 136-145 [facility] WBC (Bld) [#/Vol] 8.6 10*3/uL 4.4-11.0 [facility] Blood erythrocytes count (nu mber/volume)Ordered By: Dr. Tavares on 05-02-2022 RBC (Bld) [#/Vol] 4.41 10*6/uL 4.2-5.4 [facility] Blood hemoglobin measurement (mass/volume)Ordered By: Dr. Tavares on 05-02-2022 Hemoglobin (Bld) [Mass/Vol] 13.3 g/dL 12.0-15.0 [facility] Blood lymphocytes/100 leukoc ytesOrdered By: Dr. Tavares on 05-02-2022 Lymphocytes/100 WBC (Bld) 28.6 % 19-41 [facility] Blood monocytes/100 leukocyt esOrdered By: Dr. Tavares on 05-02-2022 Monocytes/100 WBC (Bld) 8.5 % 0-10 [facility] Blood platelet mean volumeOr dered By: Dr. Tavares on 05-02-2022 Platelet mean volume (Bld) [Entitic vol] 11.5 fL 6.2-12.0 [facility] Determination of erythrocyte mean corpuscular volume (MCV)Ordered By: Dr. Tavares on 05-02-2022 MCV (RBC) [Entitic vol] 97.3 fL 81-99 [facility] Hematocrit Auto (Bld) [Volum e fraction]Ordered By: Dr. Tavares on 05-02-2022 Hematocrit (Bld) [Volume fraction] 42.9 % 37-47 [facility] Laboratory - Chemistry and C hemistry - challengeOrdered By: Dr. Tavares on 05-02-2022 ALP [Catalytic activity/Vol] 79 U/L 45-117 [facility] ALT [Catalytic activity/Vol] 15 U/L 13-56 [facility] CO2 [Moles/Vol] 31.0 mmol/L 21.0-32.0 [facility] Globulin (S) [Mass/Vol] 3.9 g/dL 2.2-4.2 [facility] Urea nitrogen/Creatinine [Mass ratio] 20.1 mg/mg 10-20 [facility] Laboratory - Hematology and Cell countsOrdered By: Dr. Tavares on 05-02-2022 Erythrocyte distribution width (RBC) [Entitic vol] 48.0 fL 35.1-43.9 [facility] Erythrocyte distribution width (RBC) [Ratio] 13.3 % 11.6-14.6 [facility] Immature granulocytes/100 WBC (Bld) 0.200 % 0.0-0.9 [facility] Comment on above: IG% - Immature Granu locytes (promyelocytes, myelocytes and metamyelocytes) > 1% indicates that a LEFT SHIFT is Present. MCH (RBC) [Entitic mass] 30.2 pg 27.0-32.0 [facility] Nucleated RBC/100 WBC (Bld) [Ratio] 0 % 0-5 [facility] MCHC Auto (RBC) [Mass/Vol]Or dered By: Dr. Tavares on 05-02-2022 MCHC (RBC) [Mass/Vol] 31.0 g/dL 32-36 [facility] No Panel InformationOrdered By: Dr. Tavares on 05-02-2022 Estimated GFR (MDRD) Amer 76 mL/min >60 [facility] Comment on above: GFR Calc Estimated GFR (MDRD) Non-Af Amer 63 mL/min >60 [facility] Comment on above: Non- GFR Calc Platelets bldOrdered By: Dr. Tavares on 05-02-2022 Platelets (Bld) [#/Vol] 293 10*3/uL 150-450 [facility] Serum or plasma albumin akanksha urement (mass/volume)Ordered By: Dr. Tavares on 05-02-2022 Albumin [Mass/Vol] 3.5 g/dL 3.2-5.0 [facility] Serum or plasma albumin/glob ulin mass ratioOrdered By: Dr. Tavares on 05-02-2022 Albumin/Globulin [Mass ratio] 0.9 {ratio} 0.9-2.4 [facility] Serum or plasma calcium akanksha urement (mass/volume)Ordered By: Dr. Tavares on 05-02-2022 Calcium [Mass/Vol] 9.6 mg/dL 8.5-10.1 [facility] Serum or plasma creatinine m easurement (mass/volume)Ordered By: Dr. Tavares on 05-02-2022 Creatinine [Mass/Vol] 0.94 mg/dL 0.55-1.02 [facility] Comment on above: The validity of the calculated GFR & GFRAA in patients over 70 years has not been determined. Clinical correlation is essential. Serum or plasma urea nitroge n measurement (mass/volume)Ordered By: Dr. Tavares on 05-02-2022 Urea nitrogen [Mass/Vol] 19 mg/dL 7-18 [facility] Thin prep Papanicolaou smear with manual screeningOrdered By: Dr. Tavares on 05-02-2022 Thin prep Papanicolaou smear with manual screening 9 U/L 15-37 [facility] Thin prep Papanicolaou smear with manual screening 6 5-15 [facility] Laboratory - Hematology and Cell countson 03-27-2022 HbA1c (Bld) [Mass fraction] 7.0 % [facility] Glucose Glucometer (BldC) [M ass/Vol]Ordered By: Dr. Gonzalez on 02-26-2022 Glucose [Mass/Vol] 167 mg/dL 74-106 [facility] Comment on above: MANAGEMENT OF PATIEN T CARE PER NURSING PROTOCOL No Panel InformationOrdered By: Dr. Gonzalez on 02-20-2022 Nasal Screen MRSA/MSSA [facility] Laboratory - Chemistry and C hemistry - challengeOrdered By: Dr. Barnhart on 02-19-2022 Magnesium [Mass/Vol] 2.2 mg/dL 1.6-2.6 [facility] Serum or plasma albumin akanksha urement (mass/volume)Ordered By: Dr. Gonzalez on 02-19-2022 Albumin [Mass/Vol] 3.6 g/dL 3.2-5.0 [facility] Absolute lymphocyte countOrd ered By: Miladys Limon on 02-13-2022 Lymphocytes Auto (Unsp spec) [#/Vol] 2.27 10*3/uL 0.83-4.51 [facility] Basophil percentageOrdered B y: Miladys Limon on 02-13-2022 Basophils/100 WBC (Bld) 0.3 % 0-1 [facility] Bilirubin [Mass/Vol] 0.40 mg/dL 0.20-1.00 [facility] Comment on above: For patients on eltr ombopag therapy, use of Dimension [place] TBIL is not recommended. Chloride [Moles/Vol] 106 mmol/L 98-107 [facility] Eosinophils/100 WBC (Bld) 1.3 % 0-5 [facility] Glucose [Mass/Vol] 137 mg/dL 74-106 [facility] Comment on above: Fasting Glucose resu lt greater than or equal to 126 mg/dL suggests DIABETES MELLITUS per A.D.A. criteria. Neutrophils (Bld) [#/Vol] 4.7 10*3/uL 2.0-7.7 [facility] Neutrophils/100 WBC (Bld) 61.9 % 47-70 [facility] Potassium [Moles/Vol] 4.3 mmol/L 3.5-5.1 [facility] Protein [Mass/Vol] 7.2 g/dL 6.4-8.2 [facility] Sodium [Moles/Vol] 141 mmol/L 136-145 [facility] WBC (Bld) [#/Vol] 7.6 10*3/uL 4.4-11.0 [facility] Blood erythrocytes count (nu mber/volume)Ordered By: Miladys Limon on 02-13-2022 RBC (Bld) [#/Vol] 4.59 10*6/uL 4.2-5.4 [facility] Blood hemoglobin measurement (mass/volume)Ordered By: Miladys Limon on 02-13-2022 Hemoglobin (Bld) [Mass/Vol] 14.0 g/dL 12.0-15.0 [facility] Blood lymphocytes/100 leukoc ytesOrdered By: Miladys Limon on 02-13-2022 Lymphocytes/100 WBC (Bld) 29.8 % 19-41 [facility] Blood monocytes/100 leukocyt esOrdered By: Miladys Limon on 02-13-2022 Monocytes/100 WBC (Bld) 6.3 % 0-10 [facility] Blood platelet mean volumeOr dered By: Miladys Limon on 02-13-2022 Platelet mean volume (Bld) [Entitic vol] 11.5 fL 6.2-12.0 [facility] Determination of erythrocyte mean corpuscular volume (MCV)Ordered By: Miladys Limon on 02-13-2022 MCV (RBC) [Entitic vol] 97.8 fL 81-99 [facility] Hematocrit Auto (Bld) [Volum e fraction]Ordered By: Miladys Limon on 02-13-2022 Hematocrit (Bld) [Volume fraction] 44.9 % 37-47 [facility] Laboratory - Chemistry and C hemistry - challengeOrdered By: Miladys Limon on 02-13-2022 ALP [Catalytic activity/Vol] 68 U/L 45-117 [facility] ALT [Catalytic activity/Vol] 23 U/L 13-56 [facility] CO2 [Moles/Vol] 31.0 mmol/L 21.0-32.0 [facility] Globulin (S) [Mass/Vol] 3.9 g/dL 2.2-4.2 [facility] Urea nitrogen/Creatinine [Mass ratio] 19.2 mg/mg 10-20 [facility] Laboratory - Hematology and Cell countsOrdered By: Miladys Limon on 02-13-2022 Erythrocyte distribution width (RBC) [Entitic vol] 46.6 fL 35.1-43.9 [facility] Erythrocyte distribution width (RBC) [Ratio] 13.2 % 11.6-14.6 [facility] Immature granulocytes/100 WBC (Bld) 0.400 % 0.0-0.9 [facility] Comment on above: IG% - Immature Granu locytes (promyelocytes, myelocytes and metamyelocytes) > 1% indicates that a LEFT SHIFT is Present. MCH (RBC) [Entitic mass] 30.5 pg 27.0-32.0 [facility] Nucleated RBC/100 WBC (Bld) [Ratio] 0 % 0-5 [facility] MCHC Auto (RBC) [Mass/Vol]Or dered By: Miladys Limon on 02-13-2022 MCHC (RBC) [Mass/Vol] 31.2 g/dL 32-36 [facility] No Panel InformationOrdered By: Miladys Limon on 02-13-2022 Estimated GFR (MDRD) Amer 95 mL/min >60 [facility] Comment on above: GFR Calc Estimated GFR (MDRD) Non-Af Amer 79 mL/min >60 [facility] Comment on above: Non- GFR Calc Platelets bldOrdered By: Bharati Limon on 02-13-2022 Platelets (Bld) [#/Vol] 283 10*3/uL 150-450 [facility] Serum or plasma albumin/glob ulin mass ratioOrdered By: Miladys Limon on 02-13-2022 Albumin/Globulin [Mass ratio] 0.8 {ratio} 0.9-2.4 [facility] Serum or plasma calcium akanksha urement (mass/volume)Ordered By: Miladys Limon on 02-13-2022 Calcium [Mass/Vol] 9.3 mg/dL 8.5-10.1 [facility] Serum or plasma creatinine m easurement (mass/volume)Ordered By: Miladys Limon on 02-13-2022 Creatinine [Mass/Vol] 0.78 mg/dL 0.55-1.02 [facility] Comment on above: The validity of the calculated GFR & GFRAA in patients over 70 years has not been determined. Clinical correlation is essential. Serum or plasma urea nitroge n measurement (mass/volume)Ordered By: Miladys Limon on 02-13-2022 Urea nitrogen [Mass/Vol] 15 mg/dL 7-18 [facility] Thin prep Papanicolaou smear with manual screeningOrdered By: Miladys Limon on 02-13-2022 Thin prep Papanicolaou smear with manual screening 11 U/L 15-37 [facility] Thin prep Papanicolaou smear with manual screening 4 5-15 [facility] Laboratory - Hematology and Cell countson 01-31-2022 HbA1c (Bld) [Mass fraction] 7.6 % 4.2-6.3 [facility] Laboratory - Hematology and Cell countson 12-19-2021 HbA1c (Bld) [Mass fraction] 8.0 % [facility] Work Phone: Absolute lymphocyte counton 11-06-2021 Lymphocytes Auto (Unsp spec) [#/Vol] 2.60 10*3/uL 0.83-4.51 [facility] Work Phone: Basophil percentageon 2021 Basophils/100 WBC (Bld) 0.4 % 0-1 [facility] Work Phone: Bilirubin [Mass/Vol] 0.50 mg/dL 0.20-1.00 [facility] Work Phone: Comment on above: For patients on eltr ombopag therapy, use of Dimension [place] TBIL is not recommended. Chloride [Moles/Vol] 104 mmol/L 98-107 [facility] Work Phone: Cholesterol [Mass/Vol] 174 mg/dL <200 [facility] Work Phone: Comment on above: <200 mg/dL Desirable 200-240 mg/dL Borderline >240 mg/dL High Risk Eosinophils/100 WBC (Bld) 1.8 % 0-5 [facility] Work Phone: Glucose [Mass/Vol] 223 mg/dL 74-106 [facility] Work Phone: Comment on above: Glucose result great er than or equal to 200 mg/dLsuggests DIABETES MELLITUS per A.D.A. criteria. Neutrophils (Bld) [#/Vol] 5.0 10*3/uL 2.0-7.7 [facility] Work Phone: Neutrophils/100 WBC (Bld) 58.8 % 47-70 [facility] Work Phone: Potassium [Moles/Vol] 4.4 mmol/L 3.5-5.1 [facility] Work Phone: Protein [Mass/Vol] 7.4 g/dL 6.4-8.2 [facility] Work Phone: Sodium [Moles/Vol] 138 mmol/L 136-145 [facility] Work Phone: Triglyceride [Mass/Vol] 159 mg/dL <199 [facility] Work Phone: Comment on above: The drugs N-Acetylcy steine and Metamizole may falsely depress this assay.Serum Triglycerides Reference Interval Normal <150 mg/dL Borderline high 150 - 199 mg/dL High 200 - 499 mg/dL Very High > or = 500 mg/dL WBC (Bld) [#/Vol] 8.5 10*3/uL 4.4-11.0 [facility] Work Phone: Blood erythrocytes count (nu mber/volume)on 11-06-2021 RBC (Bld) [#/Vol] 4.72 10*6/uL 4.2-5.4 [facility] Work Phone: Blood hemoglobin measurement (mass/volume)on 11-06-2021 Hemoglobin (Bld) [Mass/Vol] 14.5 g/dL 12.0-15.0 [facility] Work Phone: Blood lymphocytes/100 leukoc yteson 11-06-2021 Lymphocytes/100 WBC (Bld) 30.7 % 19-41 [facility] Work Phone: Blood monocytes/100 leukocyt eson 11-06-2021 Monocytes/100 WBC (Bld) 8.1 % 0-10 [facility] Work Phone: Blood platelet mean volumeon 11-06-2021 Platelet mean volume (Bld) [Entitic vol] 11.8 fL 6.2-12.0 [facility] Work Phone: Determination of erythrocyte mean corpuscular volume (MCV)on 11-06-2021 MCV (RBC) [Entitic vol] 96.4 fL 81-99 [facility] Work Phone: Hematocrit Auto (Bld) [Volum e fraction]on 11-06-2021 Hematocrit (Bld) [Volume fraction] 45.5 % 37-47 [facility] Work Phone: Laboratory - Chemistry and C hemistry - challengeon 11-06-2021 ALP [Catalytic activity/Vol] 72 U/L 45-117 [facility] Work Phone: ALT [Catalytic activity/Vol] 23 U/L 13-56 [facility] Work Phone: CO2 [Moles/Vol] 29.0 mmol/L 21.0-32.0 [facility] Work Phone: Globulin (S) [Mass/Vol] 3.8 g/dL 2.2-4.2 [facility] Work Phone: Urea nitrogen/Creatinine [Mass ratio] 21.3 mg/mg 10-20 [facility] Work Phone: Laboratory - Hematology and Cell countson 11-06-2021 Erythrocyte distribution width (RBC) [Entitic vol] 46.6 fL 35.1-43.9 [facility] Work Phone: Erythrocyte distribution width (RBC) [Ratio] 13.0 % 11.6-14.6 [facility] Work Phone: Immature granulocytes/100 WBC (Bld) 0.200 % 0.0-0.9 [facility] Work Phone: Comment on above: IG% - Immature Granu locytes (promyelocytes, myelocytes and metamyelocytes) > 1% indicates that a LEFT SHIFT is Present. MCH (RBC) [Entitic mass] 30.7 pg 27.0-32.0 [facility] Work Phone: Nucleated RBC/100 WBC (Bld) [Ratio] 0 % 0-5 [facility] Work Phone: MCHC Auto (RBC) [Mass/Vol]on 11-06-2021 MCHC (RBC) [Mass/Vol] 31.9 g/dL 32-36 [facility] Work Phone: No Panel Informationon 11-06 Estimated GFR (MDRD) Amer 87 mL/min >60 [facility] Work Phone: Comment on above: GFR Calc Estimated GFR (MDRD) Non-Af Amer 72 mL/min >60 [facility] Work Phone: Comment on above: Non- GFR Calc Platelets bldon 11-06-2021 Platelets (Bld) [#/Vol] 264 10*3/uL 150-450 [facility] Work Phone: Serum or plasma albumin akanksha urement (mass/volume)on 11-06-2021 Albumin [Mass/Vol] 3.6 g/dL 3.2-5.0 [facility] Work Phone: Serum or plasma albumin/glob ulin mass ratioon 11-06-2021 Albumin/Globulin [Mass ratio] 0.9 {ratio} 0.9-2.4 [facility] Work Phone: Serum or plasma calcium akanksha urement (mass/volume)on 11-06-2021 Calcium [Mass/Vol] 9.3 mg/dL 8.5-10.1 [facility] Work Phone: Serum or plasma cholesterol in HDL measurement (mass/volume)on 11-06-2021 Cholesterol in HDL [Mass/Vol] 56 mg/dL >40 [facility] Work Phone: Comment on above: The drugs N-Acetylcy steine and Metamizole may falsely depress this assay. Reference Range HDL <40 mg/dL Low HDL Cholesterol HDL >or= 60 mg/dL High HDL Cholesterol Serum or plasma cholesterol in VLDL measurement (mass/volume)on 11-06-2021 Cholesterol in VLDL [Mass/Vol] 32 mg/dL 5-40 [facility] Work Phone: Serum or plasma creatinine m easurement (mass/volume)on 11-06-2021 Creatinine [Mass/Vol] 0.85 mg/dL 0.55-1.02 [facility] Work Phone: Comment on above: The validity of the calculated GFR & GFRAA in patients over 70 years has not been determined. Clinical correlation is essential. Serum or plasma low density lipoprotein (LDL) cholesterol measurement (mass/volume)on 11-06-2021 Cholesterol in LDL [Mass/Vol] 86 mg/dL 0-130 [facility] Work Phone: Serum or plasma urea nitroge n measurement (mass/volume)on 11-06-2021 Urea nitrogen [Mass/Vol] 18 mg/dL 7-18 [facility] Work Phone: Thin prep Papanicolaou smear with manual screeningon 11-06-2021 Thin prep Papanicolaou smear with manual screening 14 U/L 15-37 [facility] Work Phone: Thin prep Papanicolaou smear with manual screening 5 5-15 [facility] Work Phone: Laboratory - Hematology and Cell countson 09-18-2021 HbA1c (Bld) [Mass fraction] 8.5 % [facility] Work Phone: [employer] Cytology Reporton 2020 [employer] Cytology Report . Pathology Reports Accession: Collected Date/Time: Received Date/Time: Pathologist: [id number] 02/01/2021 16:12 EST 02/01/2021 18:00 EST [employer] Cytology Report SPECIMEN: Specimen Description: Liquid Prep Specimen: Cervical/Endocervic al Screening or Diagnostic: Screening RELEVANT HISTORY: LMP: POSTMENOPAUSAL [id number] SPECIMEN ADEQUACY: SATISFACTORY FOR EVALUATION ENDOCERVICAL/TRANSF ORMATIONAL ZONE COMPONENT PRESENT INTERPRETATION/RESU LTS: NEGATIVE FOR INTRAEPITHELIAL LESION OR MALIGNANCY COMMENT: This Pap Test was successfully processed and evaluated with the assistance of the [employer] ThinPrep Test Imaging System. Electronically Signed by Pathology report verified by [facility] Screened by: KK Electronically signed by Hetal Kridler CT (ASCP) Sign-Out Date: 02/16/2021 09:41 Performing Lab: [facility], [address] [place] [address] Disclaimer The Pap test is a screening test for cervical cancer. As evidenced by published data, it is subject to both inherent false negative and false positive results. Your patient's results should be interpreted in context with pertinent clinical history including gynecological examination. Normal [facility] ([place]) .Auto DiffOrdered By: Destini Jack on 02-01-2021 Basophil, Absolute 0.10 103/mcL Normal 0.00-0.19 AO A uto Heme SS Comment on above: Performed By: #### C BC, ADIFF, ANEU, CMP, TSH, GFR #### [address] [address] Basophils/100 WBC (Bld) 0.4 % Normal 0.0-2.5 A O Auto Heme SS Comment on above: Performed By: #### C BC, ADIFF, ANEU, CMP, TSH, GFR #### [address] [address] Eosinophil, Absolute 0.30 103/mcL Normal 0.00-0.40 AO Auto Heme SS Comment on above: Performed By: #### C BC, ADIFF, ANEU, CMP, TSH, GFR #### [address] [address] Eosinophils/100 WBC (Bld) 2.7 % Normal 0.0-7.0 AO Auto Heme SS Comment on above: Performed By: #### C BC, ADIFF, ANEU, CMP, TSH, GFR #### [address] [address] Lymphocyte, Absolute 2.20 103/mcL Normal 0.77-3.85 AO Auto Heme SS Comment on above: Performed By: #### C BC, ADIFF, ANEU, CMP, TSH, GFR #### [address] [address] Lymphocytes/100 WBC (Bld) 19.8 % Normal 10.0-50.0 AO Auto Heme SS Comment on above: Performed By: #### C BC, ADIFF, ANEU, CMP, TSH, GFR #### [address] [address] Monocyte, Absolute 0.70 103/mcL Normal 0.15-1.00 AO A uto Heme SS Comment on above: Performed By: #### C BC, ADIFF, ANEU, CMP, TSH, GFR #### [address] [address] Monocytes/100 WBC (Bld) 6.5 % Normal 1.7-13.0 A O Auto Heme SS Comment on above: Performed By: #### C BC, ADIFF, ANEU, CMP, TSH, GFR #### [address] [address] Neutrophils/100 WBC (Bld) 70.6 % Normal 37.0-80.0 AO Auto Heme SS Comment on above: Performed By: #### C BC, ADIFF, ANEU, CMP, TSH, GFR #### [address] [address] .GFROrdered By: SYSTEM IMedExchangeJasvir Park on 02-01-2021 GFR Non- 70 ml/min/1.73sqm Normal [...] BC, ADIFF, ANEU, CMP, TSH, GFR #### [address] [address] GFR 85 ml/min/1.73sqm Normal AO Chemistry S [...] BC, ADIFF, ANEU, CMP, TSH, GFR #### [place] [id number] .NEUABSOrdered By: Marcella chapin on 02-01-2021 Neutrophil, Absolute 7.90 103/mcL High 2.85-6.16 AO Auto Heme SS Comment on above: Performed By: #### C BC, ADIFF, ANEU, CMP, TSH, GFR #### [place] [id number] CBCOrdered By: Marcella mccallum on 02-01-2021 Erythrocyte distribution width (RBC) [Ratio] 13.1 % Normal 11.5-14.5 AO Auto Heme SS Comment on above: Performed By: #### C BC, ADIFF, ANEU, CMP, TSH, GFR #### [place] [id number] Hematocrit (Bld) [Volume fraction] 41.2 % Normal 37.0-47.0 AO Auto Heme SS Comment on above: Performed By: #### C BC, ADIFF, ANEU, CMP, TSH, GFR #### [address] [address] MCH (RBC) [Entitic mass] 30.5 pg Normal 27.0-31.2 AO Auto Heme SS Comment on above: Performed By: #### C BC, ADIFF, ANEU, CMP, TSH, GFR #### [place] [id number] MCV (RBC) [Entitic vol] 91.4 fL Normal 80.0-94.0 A O Auto Heme SS Comment on above: Performed By: #### C BC, ADIFF, ANEU, CMP, TSH, GFR #### [address] [address] Platelet mean volume (Bld) [Entitic vol] 10.1 fL Normal 7.4-10.4 AO Auto Heme SS Comment on above: Performed By: #### C BC, ADIFF, ANEU, CMP, TSH, GFR #### [address] [address] CBCon 02-01-2021 Hgb 13.7 G/dL Normal 12.0-16.0 [facility] ([place]) Comment on above: Performed By: #### C BC, ADIFF, ANEU, CMP, TSH, GFR #### [address] [address] MCHC 33.4 G/dL Normal 33.0-37.0 [facility] ([place]) Comment on above: Performed By: #### C BC, ADIFF, ANEU, CMP, TSH, GFR #### [address] [address] Platelet 265 10 3/mcL Normal 130-400 [facility] ([place]) Comment on above: Performed By: #### C BC, ADIFF, ANEU, CMP, TSH, GFR #### [address] [address] RBC 4.50 10 6/mcL Normal 4.20-5.40 [facility] ([place]) Comment on above: Performed By: #### C BC, ADIFF, ANEU, CMP, TSH, GFR #### [address] [address] WBC 11.20 10 3/mcL High 4.60-10.80 [facility] ([place]) Comment on above: Performed By: #### C BC, ADIFF, ANEU, CMP, TSH, GFR #### [address] [address] CMPon 02-01-2021 Albumin Level 3.6 G/dL Normal 3.4-4.8 [facility] ([place]) Comment on above: Performed By: #### C BC, ADIFF, ANEU, CMP, TSH, GFR #### [place] [address] ALT [Catalytic activity/Vol] 25 U/L Normal 14-59 [facility] ([place]) Comment on above: Performed By: #### C BC, ADIFF, ANEU, CMP, TSH, GFR #### [place] [address] AST [Catalytic activity/Vol] 14 U/L Normal 10-40 [facility] ([place]) Comment on above: Performed By: #### C BC, ADIFF, ANEU, CMP, TSH, GFR #### [place] [id number] Bili Total 0.5 mg/dL Normal 0.2-1.0 [facility] ([place]) Comment on above: Result Comment: Use of this assay is not recommended for patients undergoing treatment with eltrombopag due to the potential for falsely elevated results. Performed By: #### C BC, ADIFF, ANEU, CMP, TSH, GFR #### [place] [address] BUN/Creatinine Ratio 17 ratio Normal 7-27 [facility] ([place]) Comment on above: Performed By: #### C BC, ADIFF, ANEU, CMP, TSH, GFR #### [place] [address] Total Protein 6.9 G/dL Normal 6.4-8.2 [facility] ([place]) Comment on above: Performed By: #### C BC, ADIFF, ANEU, CMP, TSH, GFR #### [place] [address] CMPOrdered By: Marcella mccallum on 02-01-2021 Albumin/Globulin [Mass ratio] 1.1 {ratio} Normal 1.1-2.5 AO ADM SS Comment on above: Performed By: #### C BC, ADIFF, ANEU, CMP, TSH, GFR #### [address] [place] [address] ALP [Catalytic activity/Vol] 85 U/L Normal 40-135 AO ADM SS Comment on above: Performed By: #### C BC, ADIFF, ANEU, CMP, TSH, GFR #### [address] [address] Calcium [Mass/Vol] 9.1 mg/dL Normal 8.4-10.2 AO ADM SS Comment on above: Performed By: #### C BC, ADIFF, ANEU, CMP, TSH, GFR #### [address] [address] Chloride [Moles/Vol] 103 mmol/L Normal 98-107 AO A DM SS Comment on above: Performed By: #### C BC, ADIFF, ANEU, CMP, TSH, GFR #### [place] [address] CO2 [Moles/Vol] 30 mmol/L Normal 23-31 AO ADM SS Comment on above: Performed By: #### C BC, ADIFF, ANEU, CMP, TSH, GFR #### [address] [address] Creatinine [Mass/Vol] 0.82 mg/dL Normal 0.55-1.02 AO ADM SS Comment on above: Performed By: #### C BC, ADIFF, ANEU, CMP, TSH, GFR #### [address] [address] Electrolyte Balance 9.0 mEq/L Normal AO AD M SS Comment on above: Performed By: #### C BC, ADIFF, ANEU, CMP, TSH, GFR #### [address] [address] Globulin 3.3 G/dL Normal AO ADM SS Comment on above: Performed By: #### C BC, ADIFF, ANEU, CMP, TSH, GFR #### [address] [address] Glucose [Mass/Vol] 207 mg/dL High 80-115 AO ADM SS Comment on above: Performed By: #### C BC, ADIFF, ANEU, CMP, TSH, GFR #### [address] [address] Potassium [Moles/Vol] 4.7 mmol/L Normal 3.5-5.1 AO ADM SS Comment on above: Performed By: #### C BC, ADIFF, ANEU, CMP, TSH, GFR #### [place] [address] [place], [place] [address] Sodium [Moles/Vol] 142 mmol/L Normal 136-145 AO ADM SS Comment on above: Performed By: #### C BC, ADIFF, ANEU, CMP, TSH, GFR #### [place] [address] [place], [place] [address] Urea nitrogen [Mass/Vol] 14 mg/dL Normal 7-18 AO ADM SS Comment on above: Performed By: #### C BC, ADIFF, ANEU, CMP, TSH, GFR #### [address] [address] LABORATORYOrdered By: Destini Jack on 02-01-2021 Albumin [...] ADIFF, ANEU, CMP, TSH, GFR #### [place] [address] [place], [place] [address] CNPAllyson 06-15-2020 CNPN Telephone (BRCRMN) ---- KIRILL ALMAZAN ([id number]) 1955 F Date Time Provider Department 06/15/20 ALVARO RAMEY BRFARAZ During your visit today, we recorded the following information about you: Josefa [facility] [place] 06/15/2020 2:[address] Michaud's office called to request that Cherie Rodriguez (MICHAEL) speak with Dr. Ramey/Chika concerning the breast mri denial and the treatment for the patient going forward. Cherie can be reached at [phone]. Thanks Allergies As of Date: 06/15/2020 Noted [...] Mammogram, Unspecified [R92.8] 09/21/2009 Encounter Status:Closed by JOSEFA GONCALVES on 06/23/20 [facility] [place] 05-26-2020 CNPN Telephone (RADMN) ---- KIRILL ALMAZAN ([id number]) 1955 F Date Time Provider Department 05/26/20 [...] Encounter Status:Closed by FIORELLA CABRERA on 05/26/20 [facility] JOSE JUAN STEREO BX BREAST RTon JOSE JUAN STEREO BX BREAST RT * * *Final Repor t* * * * * * SEE BOTTOM OF REPORT FOR ADDENDED TEXT * * * DATE OF EXAM: May 20 2020 1:56PM MCW 0631 - JOSE [facility] STEREO BX BREAST RT / PROCEDURE REASON: Abnormal finding on breast imaging * * * * Physician Interpretation * * * * RESULT: FINAL REPORT #[id number] - JOSE [facility] STEREO BX BREAST RT STEREOTACTIC GUIDED BIOPSY [...] made to exam dated: 02/25/2020 mammogram - [facility]. A stereotactic guided biopsy was performed [...] location, twelve cores were obtained using the [employer] system. A mini-cork clip was inserted into [...] patient with scheduling her surgical appointment. Miri mckay/adiel:05/25/2020 15:41:25 Customer Experience Analyst(s): RT Elisa(R)(M), [facility] Multiple national specialty organizations have released breast cancer screening guidelines for women at average risk for developing breast cancer - guidelines that are based on both evidence and opinion, yet differ on when to start and how often to screen for breast cancer. With representation from Breast Imaging, Internal Medicine, Women's Health, Family Medicine, and Medical/Surgical Oncology, the [facility] has carefully reviewed the data and [...] their providers when to stop screening mammograms. Quartz Orientator: Adiel Transcribe Date/Time: May 20 2020 12:50P Dictated by : MIRI DUKE MD This examination was interpreted and the report reviewed and (more content not included)... Normal [facility] SURGICAL PATHOLOGYon 021 SURGICAL PATHOLOGY Specimen originated from [facility] Specimen #: [id number] Submitting Physician: MIRI B. SHEPARDSON, M.D. 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 PJM/dsh 05/24/2020 COMMENT The case was reviewed in consultation with Dr. Carlos Schneider, of the [facility] breast pathology department, who concurs. Feliz [...] time: 2 minute(s) Gross examination performed at [facility], [address] [place] [address] V[place] 05/20/2020 5:36:55 PM Date of Report: 05/25/2020 Date of Procedure: 05/20/2020 Date of Receipt: 05/20/2020 Submitted by: MIRI DUKE M.D. ([id number]) Location: A10 Diagnostic interpretation performed at [place] [address]. CLIA Number: [id number] Normal [facility] DIAGNOSTIC RTon 05-04-19 21 [facility] DIAGNOSTIC RT * * *Final Report* * * DATE OF EXAM: May 04 2020 1:05PM SAVANNAHW 0626 - [facility] DIAGNOSTIC RT / PROCEDURE REASON: right diagnostic mammogram * * * * Physician Interpretation * * * * RESULT: #[id number] - [facility] DIAGNOSTIC [...] mammogram, 01/03/2018 mammogram, and 01/02/2017 mammogram - [facility]. There are scattered fibroglandular elements in [...] be referred to the appropriate location. Shahab Ryder M.D. tab/penrad: 14:52:00 copy to: PUSHPA CLARK, ph: [phone] Customer Experience Analyst(s): Yesenia Brown, RT(R)(M), [facility] Mammogram BI-RADS: 4 Suspicious finding - [...] Health, Family Medicine, and Medical/Surgical Oncology, the [facility] has carefully reviewed the data and [...] their providers when to stop screening mammograms. Quartz Orientator: Adiel Transcribe Date/Time: May 04 2020 12:54P Dictated by: SHAHAB RYDER MD This examination was interpreted and the report reviewed and electronically signed by: SHAHAB RYDER MD on May 04 2020 2:52PM EST [id number] Normal [facility] [employer] BREAST LTD RTon 05-04 [employer] BREAST LTD RT * * *Final Report* * * DATE OF EXAM: May 04 2020 1:41PM WRU 0594 - [facility] [employer] BREAST Whisbi RT / PROCEDURE REASON: right diagnostic mammogram * * * * Physician Interpretation * * * * #[id number] - [facility] [employer] BREAST LTD RT LIMITED ULTRASOUND OF RIGHT BREAST: 05/04/2020 HISTORY: Right Diagnostic Mammogram. RESULT: Comparison is made to exams dated: 05/04/2020 mammogram, 02/25/2020 mammogram, 02/06/2019 mammogram, 01/03/2018 mammogram, 01/02/2017 ultrasound, and 01/02/2017 mammogram - [facility]. Color flow and real-time ultrasound of [...] SUMMARY: Tomosynthesis guided biopsy is recommended. Shahab osullivan/adiel: 14:58:20 copy to: PUSHPA CLARK, ph: [phone] Customer Experience Analyst(s): Demi Whyte, [facility] Ultrasound BI-RADS: 1 Negative Multiple national specialty organizations have released breast cancer screening guidelines for women at average risk for developing breast cancer - guidelines that are based on both evidence and opinion, yet differ on when to start and how often to screen for breast cancer. With representation from Breast Imaging, Internal Medicine, Women's Health, Family Medicine, and Medical/Surgical Oncology, the [facility] has carefully reviewed the data and [...] their providers when to stop screening mammograms. Quartz Orientator: Adiel Transcribe Date/Time: May 04 2020 1:28P Dictated by : SHAHAB RYDER MD This examination was interpreted and the report reviewed and electronically signed by: SHAHAB RYDER MD on May 04 2020 2:58PM EST [id number] Normal [facility] [place] 04-22-2020 CNPN Telephone (RADMN) ---- KIRILL ALMAZAN ([id number]) 1955 F Date Time Provider Department 04/22/20 LUCRETIA BABCOCK) RADMN During your visit today, we recorded the following information about you: [address] 04/22/2020 8:43 AM Signed return call to patient [phone] [address] 04/22/2020 8:50 AM Signed patient called- appointment [facility] in [facility] for callback mammogram Allergies As of Date: 04/22/2020 Noted Allergy Reaction DEMEROL (MEPERIDINE (PF)) 12/01/2007 11 - Vomiting Date Reviewed: 09/21/2009 Reviewed by: Ana Herrera Ma - Reviewed Reason for Visit: Mammogram Result Call Back [[id number]] Prescriptions as of 04/22/2020 Sig: * VITAMIN [...] Mammogram, Unspecified [R92.8] 09/21/2009 Encounter Status:Closed by LAURO WAY on 04/22/20 Normal [facility] No Panel Information Nasal Screen MRSA/MSSA [facility] Work Phone: Vital Signs Date Time Vital Sign Value Performing Clinician Facility 12-15-2024 14:52-0400 Body height 157.[address] Maricarmen Tavares MD Work Phone: [facility] 12-15-2024 14:52-0400 Body mass index (BMI) [Ratio] 41.1 kg/m2 Dr. Maricarmen Tavares MD Work Phone: [facility] 12-15-2024 14:52-0400 Body temperature 98.2 [degF] Dr. Maricarmen Tavares MD Work Phone: [facility] 12-15-2024 14:52-0400 Body weight 101.[address] Maricarmen Tavares MD Work Phone: [facility] 12-15-2024 14:52-0400 Diastolic blood pressure 72 mm[Hg] Dr. Maricarmen Tavares MD Work Phone: [facility] 12-15-2024 14:52-0400 Heart rate 83 /min Dr. Maricarmen Tavares MD Work Phone: [facility] 12-15-2024 14:52-0400 Respiratory rate 18 /min Dr. Maricarmen Tavares MD Work Phone: [facility] 12-15-2024 14:52-0400 SaO2% (BldA) [Mass fraction] 94 % Dr. Maricarmen Tavares MD Work Phone: [facility] 12-15-2024 14:52-0400 Systolic blood pressure 119 mm[Hg] Dr. Maricarmen Tavares MD Work Phone: [facility] 11-17-2024 12:47-0400 Body height 157.[address] Maricarmen Tavares MD Work Phone: [facility] 11-17-2024 12:47-0400 Body mass index (BMI) [Ratio] 41.8 kg/m2 Dr. Maricarmen Tavares MD Work Phone: [facility] 11-17-2024 12:47-0400 Body temperature 98.5 [degF] Dr. Maricarmen Tavares MD Work Phone: [facility] 11-17-2024 12:47-0400 Body weight 103.[address] Maricarmen aTvares MD Work Phone: [facility] 11-17-2024 12:47-0400 Diastolic blood pressure 83 mm[Hg] Dr. Maricarmen Tavares MD Work Phone: [facility] 11-17-2024 12:47-0400 Heart rate 87 /min Dr. Maricarmen Tavares MD Work Phone: [facility] 11-17-2024 12:47-0400 Respiratory rate 18 /min Dr. Maricarmen Tavares MD Work Phone: [facility] 11-17-2024 12:47-0400 SaO2% (BldA) [Mass fraction] 97 % Dr. Maricarmen Tavares MD Work Phone: [facility] 11-17-2024 12:47-0400 Systolic blood pressure 130 mm[Hg] Dr. Maricarmen Tavares MD Work Phone: [facility] 09-15-2024 13:24-0400 Body height 157.[address] Maricarmen Tavares MD Work Phone: [facility] 09-15-2024 13:24-0400 Body mass index (BMI) [Ratio] 42.2 kg/m2 Dr. Maricarmen Tavares MD Work Phone: [facility] 09-15-2024 13:24-0400 Body temperature 99.2 [degF] Dr. Maricarmen Tavares MD Work Phone: [facility] 09-15-2024 13:24-0400 Body weight 104.[address] Maricarmen Tavares MD Work Phone: [facility] 09-15-2024 13:24-0400 Diastolic blood pressure 64 mm[Hg] Dr. Maricarmen Tavares MD Work Phone: [facility] 09-15-2024 13:24-0400 Heart rate 88 /min Dr. Maricarmen Tavares MD Work Phone: [facility] 09-15-2024 13:24-0400 Respiratory rate 16 /min Dr. Maricarmen Tavares MD Work Phone: [facility] 09-15-2024 13:24-0400 SaO2% (BldA) [Mass fraction] 96 % Dr. Maricarmen Tavares MD Work Phone: [facility] 09-15-2024 13:24-0400 Systolic blood pressure 132 mm[Hg] Dr. Maricarmen Tavares MD Work Phone: [facility] 09-15-2024 13:23-0400 Body mass index (BMI) [Ratio] 43.7 kg/m2 Dr. Maricarmen Tavares MD Work Phone: [facility] 09-15-2024 13:23-0400 Body temperature 98.5 [degF] Dr. Maricarmen Tavares MD Work Phone: [facility] 09-15-2024 13:23-0400 Body weight 108.[address] Maricarmen Tavares MD Work Phone: [facility] 09-15-2024 13:23-0400 Diastolic blood pressure 70 mm[Hg] Dr. Maricarmen Tavares MD Work Phone: [facility] 09-15-2024 13:23-0400 Heart rate 83 /min Dr. Maricarmen Tavares MD Work Phone: [facility] 09-15-2024 13:23-0400 Respiratory rate 18 /min Dr. Maricarmen Tavares MD Work Phone: [facility] 09-15-2024 13:23-0400 SaO2% (BldA) [Mass fraction] 95 % Dr. Maricarmen Tavares MD Work Phone: [facility] 09-15-2024 13:23-0400 Systolic blood pressure 127 mm[Hg] Dr. Maricarmen Tavares MD Work Phone: [facility] 09-08-2024 13:05-0400 Body height 157.[address] Maricarmen Tavares MD Work Phone: [facility] 09-08-2024 13:05-0400 Body mass index (BMI) [Ratio] 44 kg/m2 Dr. Maricarmen Tavares MD Work Phone: [facility] 09-08-2024 13:05-0400 Body weight 109.[address] Maricarmen Tavares MD Work Phone: [facility] 09-08-2024 13:05-0400 Diastolic blood pressure 84 mm[Hg] Dr. Maricarmen Tavares MD Work Phone: [facility] 09-08-2024 13:05-0400 Heart rate 84 /min Dr. Maricarmen Tavares MD Work Phone: [facility] 09-08-2024 13:05-0400 SaO2% (BldA) [Mass fraction] 94 % Dr. Maricarmen Tavares MD Work Phone: [facility] 09-08-2024 13:05-0400 Systolic blood pressure 127 mm[Hg] Dr. Maricarmen Tavares MD Work Phone: [facility] 08-05-2024 10:16-0400 Body height 157.[address] Maricarmen Tavares MD Work Phone: [facility] 08-05-2024 10:16-0400 Body mass index (BMI) [Ratio] 44.8 kg/m2 Dr. Maricarmen Tavares MD Work Phone: [facility] 08-05-2024 10:16-0400 Body temperature 100.6 [degF] Dr. Maricarmen Tavares MD Work Phone: [facility] 08-05-2024 10:16-0400 Body weight 111.[address] Maricarmen Tavares MD Work Phone: [facility] 08-05-2024 10:16-0400 Diastolic blood pressure 78 mm[Hg] Dr. Maricarmen Tavares MD Work Phone: [facility] 08-05-2024 10:16-0400 Heart rate 85 /min Dr. Maricarmen Tavares MD Work Phone: [facility] 08-05-2024 10:16-0400 Respiratory rate 16 /min Dr. Maricarmen Tavares MD Work Phone: [facility] 08-05-2024 10:16-0400 SaO2% (BldA) [Mass fraction] 97 % Dr. Maricarmen Tavares MD Work Phone: [facility] 08-05-2024 10:16-0400 Systolic blood pressure 130 mm[Hg] Dr. Maricarmen Tavares MD Work Phone: [facility] 05-11-2024 13:19-0500 Body mass index (BMI) [Ratio] 44.8 kg/m2 Dr. Maricarmen Tavares MD Work Phone: [facility] 05-11-2024 13:19-0500 Body weight 111.[address] Maricarmen Tavares MD Work Phone: [facility] 05-11-2024 13:19-0500 Diastolic blood pressure 80 mm[Hg] Dr. Maricarmen Tavares MD Work Phone: [facility] 05-11-2024 13:19-0500 Heart rate 87 /min Dr. Maricarmen Tavares MD Work Phone: [facility] 05-11-2024 13:19-0500 SaO2% (BldA) [Mass fraction] 96 % Dr. Maricarmen Tavares MD Work Phone: [facility] 05-11-2024 13:19-0500 Systolic blood pressure 131 mm[Hg] Dr. Maricarmen Tavares MD Work Phone: [facility] 04-15-2024 09:03-0500 Body mass index (BMI) [Ratio] 44 kg/m2 Dr. Maricarmen Tavares MD Work Phone: [facility] 04-15-2024 09:03-0500 Body temperature 97.3 [degF] Dr. Maricarmen Tavares MD Work Phone: [facility] 04-15-2024 09:03-0500 Body weight 109.[address] Maricarmen Tavares MD Work Phone: [facility] 04-15-2024 09:03-0500 Diastolic blood pressure 82 mm[Hg] Dr. Maricarmen Tavares MD Work Phone: [facility] 04-15-2024 09:03-0500 Heart rate 80 /min Dr. Maricarmen Tavares MD Work Phone: [facility] 04-15-2024 09:03-0500 Respiratory rate 17 /min Dr. Maricarmen Tavares MD Work Phone: [facility] 04-15-2024 09:03-0500 SaO2% (BldA) [Mass fraction] 96 % Dr. Maricarmen Tavares MD Work Phone: [facility] 04-15-2024 09:03-0500 Systolic blood pressure 134 mm[Hg] Dr. Maricarmen Tavares MD Work Phone: [facility] 06-19-2023 11:39-0400 Body height 157.[address] Maricarmen Tavares Work Phone: [facility] 06-19-2023 11:39-0400 Body mass index (BMI) [Ratio] 47.5 kg/m2 Dr. Maricarmen Tavares Work Phone: [facility] 06-19-2023 11:39-0400 Body weight 117.[address] Maricarmen Tavares Work Phone: [facility] 06-19-2023 11:39-0400 Diastolic blood pressure 85 mm[Hg] Dr. Maricarmen Tavares Work Phone: [facility] 06-19-2023 11:39-0400 Systolic blood pressure 141 mm[Hg] Dr. Maricarmen Tavares Work Phone: [facility] 06-19-2023 10:02-0400 Body mass index (BMI) [Ratio] 47.2 kg/m2 Dr. Maricarmen Tavares Work Phone: [facility] 06-19-2023 10:02-0400 Body weight 117.[address] Maricarmen Tavares Work Phone: [facility] 06-19-2023 10:02-0400 Diastolic blood pressure 93 mm[Hg] Dr. Maricarmen Tavares Work Phone: [facility] 06-19-2023 10:02-0400 Heart rate 75 /min Dr. Maricarmen Tavares Work Phone: [facility] 06-19-2023 10:02-0400 Respiratory rate 16 /min Dr. Maricarmen Tavares Work Phone: [facility] 06-19-2023 10:02-0400 Systolic blood pressure 147 mm[Hg] Dr. Maricarmen Tavares Work Phone: [facility] 06-04-2023 15:23-0400 Body mass index (BMI) [Ratio] 47.5 kg/m2 Dr. Maricarmen Tavares Work Phone: [facility] 06-04-2023 15:23-0400 Body temperature 98.4 [degF] Dr. Maricarmen Tavares Work Phone: [facility] 06-04-2023 15:23-0400 Body weight 117.[address] Maricarmen Tavares Work Phone: [facility] 06-04-2023 15:23-0400 Diastolic blood pressure 83 mm[Hg] Dr. Maricarmen Tavares Work Phone: [facility] 06-04-2023 15:23-0400 Heart rate 68 /min Dr. Maricarmen Tavares Work Phone: [facility] 06-04-2023 15:23-0400 SaO2% (BldA) [Mass fraction] 92 % Dr. Maricarmen Tavares Work Phone: [facility] 06-04-2023 15:23-0400 Systolic blood pressure 139 mm[Hg] Dr. Maricarmen Tavares Work Phone: [facility] 05-13-2023 15:01-0500 Body height 157.[address] Maricarmen Tavares Work Phone: [facility] 05-13-2023 15:01-0500 Body mass index (BMI) [Ratio] 47.7 kg/m2 Dr. Maricarmen Tavares Work Phone: [facility] 05-13-2023 15:01-0500 Body temperature 98.4 [degF] Dr. Maricarmen Tavares Work Phone: [facility] 05-13-2023 15:01-0500 Body weight 118.[address] Maricarmen Tavares Work Phone: [facility] 05-13-2023 15:01-0500 Diastolic blood pressure 82 mm[Hg] Dr. Maricarmen Tavares Work Phone: [facility] 05-13-2023 15:01-0500 Heart rate 69 /min Dr. Maricarmen aTvares Work Phone: [facility] 05-13-2023 15:01-0500 Respiratory rate 16 /min Dr. Maricarmen Tavares Work Phone: [facility] 05-13-2023 15:01-0500 SaO2% (BldA) [Mass fraction] 97 % Dr. Maricarmen Tavares Work Phone: [facility] 05-13-2023 15:01-0500 Systolic blood pressure 140 mm[Hg] Dr. Maricarmen Tavares Work Phone: [facility] 03-07-2023 09:21-0500 Body mass index (BMI) [Ratio] 46.4 kg/m2 Dr. Maricarmen Tavares Work Phone: [facility] 03-07-2023 09:21-0500 Body temperature 98 [degF] Dr. Maricarmen Tavares Work Phone: [facility] 03-07-2023 09:21-0500 Body weight 115.[address] Maricarmen Tavares Work Phone: [facility] 03-07-2023 09:21-0500 Diastolic blood pressure 72 mm[Hg] Dr. Maricarmen Tavares Work Phone: [facility] 03-07-2023 09:21-0500 Heart rate 59 /min Dr. Maricarmen Tavares Work Phone: [facility] 03-07-2023 09:21-0500 Respiratory rate 16 /min Dr. Maricarmen Tavares Work Phone: [facility] 03-07-2023 09:21-0500 SaO2% (BldA) [Mass fraction] 98 % Dr. Maricarmen Tavares Work Phone: [facility] 03-07-2023 09:21-0500 Systolic blood pressure 131 mm[Hg] Dr. Maricarmen Tavares Work Phone: [facility] 02-08-2023 08:23-0500 Body height 157.[address] Maricarmen Tavares Work Phone: [facility] 02-08-2023 08:23-0500 Body mass index (BMI) [Ratio] 46.7 kg/m2 Dr. Maricarmen Tavares Work Phone: [facility] 02-08-2023 08:23-0500 Body temperature 97 [degF] Dr. Maricarmen Tavares Work Phone: [facility] 02-08-2023 08:23-0500 Body weight 116.[address] Maricarmen Tavares Work Phone: [facility] 02-08-2023 08:23-0500 Diastolic blood pressure 82 mm[Hg] Dr. Maricarmen Tavares Work Phone: [facility] 02-08-2023 08:23-0500 Heart rate 68 /min Dr. Maricarmen Tavares Work Phone: [facility] 02-08-2023 08:23-0500 Respiratory rate 16 /min Dr. Maricarmen Tavares Work Phone: [facility] 02-08-2023 08:23-0500 SaO2% (BldA) [Mass fraction] 95 % Dr. Maricaremn Tavares Work Phone: [facility] 02-08-2023 08:23-0500 Systolic blood pressure 142 mm[Hg] Dr. Maricarmen Tavares Work Phone: [facility] 11-07-2022 16:50-0400 Body mass index (BMI) [Ratio] 47 kg/m2 Dr. Maricarmen Tavares Work Phone: [facility] 11-07-2022 16:50-0400 Body temperature 97.7 [degF] Dr. Maricarmen aTvares Work Phone: [facility] 11-07-2022 16:50-0400 Body weight 116.[address] Maricarmen Tavares Work Phone: [facility] 11-07-2022 16:50-0400 Diastolic blood pressure 84 mm[Hg] Dr. Maricarmen Tavares Work Phone: [facility] 11-07-2022 16:50-0400 Heart rate 62 /min Dr. Maricarmen Tavares Work Phone: [facility] 11-07-2022 16:50-0400 Respiratory rate 16 /min Dr. Maricarmen Tavares Work Phone: [facility] 11-07-2022 16:50-0400 SaO2% (BldA) [Mass fraction] 97 % Dr. Maricarmen Tavares Work Phone: [facility] 11-07-2022 16:50-0400 Systolic blood pressure 130 mm[Hg] Dr. Maricarmen Tavares Work Phone: [facility] 10-16-2022 15:21-0400 Body mass index (BMI) [Ratio] 46.6 kg/m2 Dr. Maricarmen Tavares Work Phone: [facility] 10-16-2022 15:21-0400 Body temperature 98.2 [degF] Dr. Maricarmen Tavares Work Phone: [facility] 10-16-2022 15:21-0400 Body weight 115.[address] Maricarmen Tavares Work Phone: [facility] 10-16-2022 15:21-0400 Diastolic blood pressure 88 mm[Hg] Dr. Maricarmen Tavares Work Phone: [facility] 10-16-2022 15:21-0400 Heart rate 80 /min Dr. Maricarmen Tavares Work Phone: [facility] 10-16-2022 15:21-0400 Respiratory rate 18 /min Dr. Maricarmen Tavares Work Phone: [facility] 10-16-2022 15:21-0400 SaO2% (BldA) [Mass fraction] 96 % Dr. Maricarmen Tavares Work Phone: [facility] 10-16-2022 15:21-0400 Systolic blood pressure 162 mm[Hg] Dr. Maricarmen Tavares Work Phone: [facility] 05-02-2022 14:58-0500 Body height 157.[address] Maricarmen Tavares Work Phone: [facility] 05-02-2022 14:58-0500 Body mass index (BMI) [Ratio] 45.3 kg/m2 Dr. Maricarmen Tavares Work Phone: [facility] 05-02-2022 14:58-0500 Body temperature 97.6 [degF] Dr. Maricarmen Tavares Work Phone: [facility] 05-02-2022 14:58-0500 Body weight 112.[address] Maricarmen Tavares Work Phone: [facility] 05-02-2022 14:58-0500 Diastolic blood pressure 90 mm[Hg] Dr. Maricarmen Tavares Work Phone: [facility] 05-02-2022 14:58-0500 Heart rate 69 /min Dr. Maricarmen Tavares Work Phone: [facility] 05-02-2022 14:58-0500 Respiratory rate 16 /min Dr. Maricarmen Tavares Work Phone: [facility] 05-02-2022 14:58-0500 SaO2% (BldA) [Mass fraction] 97 % Dr. Maricarmen Tavares Work Phone: [facility] 05-02-2022 14:58-0500 Systolic blood pressure 124 mm[Hg] Dr. Maricarmen Tavares Work Phone: [facility] 04-27-2022 07:27-0500 Body height 157.[address] Maricarmen Tavares Work Phone: [facility] 04-27-2022 07:27-0500 Body mass index (BMI) [Ratio] 44.9 kg/m2 Dr. Maricarmen Tavares Work Phone: [facility] 04-27-2022 07:27-0500 Body temperature 96.1 [degF] Dr. Maricarmen Tavares Work Phone: [facility] 04-27-2022 07:27-0500 Body weight 111.[address] Maricarmen Tavares Work Phone: [facility] 04-27-2022 07:27-0500 Diastolic blood pressure 84 mm[Hg] Dr. Maricarmen Tavares Work Phone: [facility] 04-27-2022 07:27-0500 Heart rate 83 /min Dr. Maricarmen Tavares Work Phone: [facility] 04-27-2022 07:27-0500 Respiratory rate 16 /min Dr. Maricarmen Tavares Work Phone: [facility] 04-27-2022 07:27-0500 SaO2% (BldA) [Mass fraction] 98 % Dr. Maricarmen Tavares Work Phone: [facility] 04-27-2022 07:27-0500 Systolic blood pressure 136 mm[Hg] Dr. Maricarmen Tavares Work Phone: [facility] 03-27-2022 15:00-0500 Body mass index (BMI) [Ratio] 44.5 kg/m2 Dr. Maricarmen Tavares Work Phone: [facility] 03-27-2022 15:00-0500 Body temperature 97.3 [degF] Dr. Maricarmen Tavares Work Phone: [facility] 03-27-2022 15:00-0500 Body weight 110.[address] Maricarmen Tavares Work Phone: [facility] 03-27-2022 15:00-0500 Diastolic blood pressure 83 mm[Hg] Dr. Maricarmen Tavares Work Phone: [facility] 03-27-2022 15:00-0500 Heart rate 73 /min Dr. Maricarmen Tavares Work Phone: [facility] 03-27-2022 15:00-0500 Respiratory rate 18 /min Dr. Maricarmen Tavares Work Phone: [facility] 03-27-2022 15:00-0500 SaO2% (BldA) [Mass fraction] 96 % Dr. Maricarmen Tavares Work Phone: [facility] 03-27-2022 15:00-0500 Systolic blood pressure 122 mm[Hg] Dr. Maricarmen Tavares Work Phone: [facility] 02-26-2022 19:15-0500 Body temperature 97.3 [degF] Dr. Pushpa Clark Work Phone: [facility] 02-26-2022 19:15-0500 Diastolic blood pressure 70 mm[Hg] Dr. Pushpa Clark Work Phone: [facility] 02-26-2022 19:15-0500 Heart rate 62 /min Dr. Pushpa Clark Work Phone: [facility] 02-26-2022 19:15-0500 Respiratory rate 16 /min Dr. Pushpa Clark Work Phone: [facility] 02-26-2022 19:15-0500 SaO2% (BldA) [Mass fraction] 94 % Dr. Pushpa Clark Work Phone: [facility] 02-26-2022 19:15-0500 Systolic blood pressure 121 mm[Hg] Dr. Pushpa Clark Work Phone: [facility] 02-26-2022 16:25-0500 Inhaled oxygen flow rate 4 L/min Dr. Pushpa Clark Work Phone: [facility] 02-26-2022 12:16-0500 Body height 157.[address] Pushpa Clark Work Phone: [facility] Work Phone: 02-26-2022 12:16-0500 Body mass index (BMI) [Ratio] 44 kg/m2 Dr. Pushpa Clark Work Phone: [facility] 02-26-2022 12:16-0500 Body weight 109.[address] Pushpa Clark Work Phone: [facility] 02-13-2022 08:22-0500 Body height 157.[address] Pushpa Clark Work Phone: [facility] Work Phone: 02-13-2022 08:22-0500 Body mass index (BMI) [Ratio] 45.3 kg/m2 Dr. Pushpa Clark Work Phone: [facility] 02-13-2022 08:22-0500 Body temperature 97.9 [degF] Dr. Pushpa Clark Work Phone: [facility] 02-13-2022 08:22-0500 Body weight 112.[address] Pushpa Clark Work Phone: [facility] 02-13-2022 08:22-0500 Diastolic blood pressure 80 mm[Hg] Dr. Pushpa Clark Work Phone: [facility] 02-13-2022 08:22-0500 Heart rate 76 /min Dr. Pushpa Clark Work Phone: [facility] 02-13-2022 08:22-0500 Respiratory rate 14 /min Dr. Pushpa Clark Work Phone: [facility] 02-13-2022 08:22-0500 SaO2% (BldA) [Mass fraction] 96 % Dr. Pushpa Clark Work Phone: [facility] 02-13-2022 08:22-0500 Systolic blood pressure 126 mm[Hg] Dr. Pushpa Clark Work Phone: [facility] 01-31-2022 10:15-0500 Body mass index (BMI) [Ratio] 45.5 kg/m2 Dr. Pushpa Clark Work Phone: [facility] 01-31-2022 10:15-0500 Body temperature 96.5 [degF] Dr. Pushpa Clark Work Phone: [facility] 01-31-2022 10:15-0500 Body weight 112.[address] Pushpa Clark Work Phone: [facility] 01-31-2022 10:15-0500 Diastolic blood pressure 88 mm[Hg] Dr. Pushpa Clark Work Phone: [facility] 01-31-2022 10:15-0500 Heart rate 71 /min Dr. Pushpa Clark Work Phone: [facility] 01-31-2022 10:15-0500 Respiratory rate 16 /min Dr. Pushpa Clark Work Phone: [facility] 01-31-2022 10:15-0500 SaO2% (BldA) [Mass fraction] 96 % Dr. Pushpa Clark Work Phone: [facility] 01-31-2022 10:15-0500 Systolic blood pressure 140 mm[Hg] Dr. Pushpa Clark Work Phone: [facility] 12-19-2021 15:14-0400 Body height 157.[address] Pushpa Clark Work Phone: [facility] Work Phone: 12-19-2021 15:14-0400 Body mass index (BMI) [Ratio] 46.1 kg/m2 Dr. Pushpa Clrak Work Phone: [facility] Work Phone: 12-19-2021 15:14-0400 Body temperature 96.3 [degF] Dr. Pushpa Clark Work Phone: [facility] Work Phone: 12-19-2021 15:14-0400 Body weight 114.[address] Pushpa Clark Work Phone: [facility] Work Phone: 12-19-2021 15:14-0400 Diastolic blood pressure 67 mm[Hg] Dr. Pushpa Clark Work Phone: [facility] Work Phone: 12-19-2021 15:14-0400 Heart rate 64 /min Dr. Pushpa Clark Work Phone: [facility] Work Phone: 12-19-2021 15:14-0400 Respiratory rate 22 /min Dr. Pushpa Clark Work Phone: [facility] Work Phone: 12-19-2021 15:14-0400 SaO2% (BldA) [Mass fraction] 95 % Dr. Pushpa Clark Work Phone: [facility] Work Phone: 12-19-2021 15:14-0400 Systolic blood pressure 151 mm[Hg] Dr. Pushpa Clark Work Phone: [facility] Work Phone: 11-06-2021 09:08-0400 Body height 157.[address] Pushpa Clark Work Phone: [facility] Work Phone: 11-06-2021 09:08-0400 Body mass index (BMI) [Ratio] 44.9 kg/m2 Dr. Pushpa Clark Work Phone: [facility] Work Phone: 11-06-2021 09:08-0400 Body temperature 97.7 [degF] Dr. Pushpa Clark Work Phone: [facility] Work Phone: 11-06-2021 09:08-0400 Body weight 111.[address] Pushpa Clark Work Phone: [facility] Work Phone: 11-06-2021 09:08-0400 Diastolic blood pressure 82 mm[Hg] Dr. Pushpa Clark Work Phone: [facility] Work Phone: 11-06-2021 09:08-0400 Heart rate 59 /min Dr. Pushpa Clark Work Phone: [facility] Work Phone: 11-06-2021 09:08-0400 Respiratory rate 14 /min Dr. Pushpa Clark Work Phone: [facility] Work Phone: 11-06-2021 09:08-0400 SaO2% (BldA) [Mass fraction] 97 % Dr. Pushpa Clark Work Phone: [facility] Work Phone: 11-06-2021 09:08-0400 Systolic blood pressure 118 mm[Hg] Dr. Pushpa Clark Work Phone: [facility] Work Phone: 09-18-2021 15:20-0400 Body mass index (BMI) [Ratio] 45.1 kg/m2 Dr. Pushpa Clark Work Phone: [facility] Work Phone: 09-18-2021 15:20-0400 Body temperature 94.7 [degF] Dr. Pushpa Clark Work Phone: [facility] Work Phone: 09-18-2021 15:20-0400 Body weight 111.[address] Pushpa Clark Work Phone: [facility] Work Phone: 09-18-2021 15:20-0400 Diastolic blood pressure 88 mm[Hg] Dr. Pushpa Clark Work Phone: [facility] Work Phone: 09-18-2021 15:20-0400 Heart rate 70 /min Dr. Pushpa Clark Work Phone: [facility] Work Phone: 09-18-2021 15:20-0400 Respiratory rate 20 /min Dr. Pushpa Clark Work Phone: [facility] Work Phone: 09-18-2021 15:20-0400 SaO2% (BldA) [Mass fraction] 96 % Dr. Pushpa Clark Work Phone: [facility] Work Phone: 09-18-2021 15:20-0400 Systolic blood pressure 130 mm[Hg] Dr. Pushpa Clark Work Phone: [facility] Work Phone: Encounters Encounter Date Encounter Type Care Provider Facility Start: 12-24-2024 ambulatory Maricarmen Iverson ty:[facility] Start: 12-21-2024 ambulatory Maricarmen Iverson ty:[facility] Start: 12-15-2024 End: 12-15-[address] Anselmo Gallagher MD -[facility] Work Phone: Start: 12-15-2024 End: 12-15-[address] Maricarmen Tavares MD Work Phone: -[facility] Start: 12-14-[address] Anselmo Gallagher MD -[facility] Start: 11-17-[address] Anselmo Gallagher MD -[facility] Start: 11-17-2024 End: 11-17-[address] Anselmo Gallagher MD -[facility] Work Phone: Start: 11-17-2024 End: 11-17-[address] Maricarmen Tavares MD Work Phone: -[facility] Start: 11-04-2024 End: 11-04-[address] Maricarmen Tavares MD -[facility] Work Phone: Start: 11-04-2024 End: 11-04-[address] Maricarmen Tavares MD Work Phone: -[facility] Start: 09-25-2024 End: 09-25-[address] Maricarmen Tavares MD Work Phone: -[facility] Start: 09-25-2024 End: 09-25-[address] Steve Metz MD -[facility] Work Phone: Start: 09-25-2024 End: 09-25-2024 ambulatory Maricarmen Tavares Facility:[facility] Start: 09-15-[address] Anselmo Gallagher MD -[facility] Start: 09-15-2024 End: 09-15-[address] Anselmo Gallagher MD -[facility] Work Phone: Start: 09-15-2024 End: 09-15-[address] Maricarmen Tavares MD Work Phone: -[facility] Start: 09-09-2024 End: 09-09-[address] Maricarmen Tavares MD Work Phone: -Laboratory Start: 09-09-2024 End: 09-09-[address] Maricarmen Tavares MD -Laboratory Work Phone: Start: 09-08-2024 End: 09-08-[address] Steve Metz MD -[facility] Work Phone: Start: 09-08-2024 End: 09-09-[address] Maricarmen Tavares MD Work Phone: -[facility] Start: 08-10-2024 End: 08-10-[address] Maricarmen Tavares MD Work Phone: [facility] Work Phone: Start: 08-10-2024 End: 08-10-[address] Maricarmen Tavares MD -Labor[facility] [place] Work Phone: Start: 08-10-2024 End: 08-10-2024 ambulatory Maricarmen Tavares Facility:[facility] Start: 08-05-2024 End: 08-05-[address] Maricarmen Tavares MD -[facility] Work Phone: Start: 08-05-2024 End: 08-05-[address] Maricarmen Tavares MD Work Phone: [facility] Work Phone: Start: 08-05-2024 End: 08-05-2024 ambulatory [facility] Facility:[facility] Start: 05-11-2024 End: 05-11-[address] Steve Metz MD -[facility] Work Phone: Start: 05-11-2024 End: 05-11-2024 ambulatory [facility] Facility:[facility] Start: 04-15-2024 End: 04-15-[address] Maricarmen Tavares MD -[facility] Work Phone: Start: 04-15-2024 End: 04-15-2024 ambulatory [facility] Start: 03-31-2024 End: 03-31-2024 ambulatory [facility] Facility:[facility] Start: 02-25-2024 End: 02-25-2024 ambulatory Steve Metz Facility:[facility] Start: 01-20-2024 End: 01-20-2024 ambulatory [facility] Facility:[facility] Start: 01-14-2024 End: 01-14-2024 ambulatory [facility] Facility:[facility] Start: 07-15-2023 Non-patient / Non-visit Dr. Mandy Tavares Work Phone: [facility] Start: 07-15-2023 End: 07-15-[address] Maricarmen Tavares Work Phone: [facility] Work Phone: Start: 07-15-2023 End: 07-15-[address] [facility] Start: 06-19-2023 End: 06-19-[address] Maricarmen Tavares Work Phone: [facility] Work Phone: Start: 06-19-2023 End: 06-19-[address] Maricarmen Tavares Work Phone: [facility]-Laboratory, Specimen Work Phone: Start: 06-19-2023 End: 06-19-[address] Maricarmen Tavares Work Phone: [facility] Work Phone: Start: 06-19-2023 End: 06-19-[address] Maricarmen Tavares Work Phone: [facility] Work Phone: Start: 06-04-2023 End: 06-04-[address] Maricarmen Tavares Work Phone: [facility] Work Phone: Start: 05-29-2023 End: 05-29-2023 ambulatory Dr. Maricarmen Tavares Work Phone: [facility] Work Phone: Start: 05-29-2023 End: 05-29-[address] Maricarmen Tavares Work Phone: [facility]-Cat Scan, [facility] Work Phone: Start: 05-22-2023 End: 05-22-[address] Maricarmen Tavares Work Phone: [facility] Work Phone: Start: 05-22-2023 End: 05-22-[address] Maricarmen Tavares Work Phone: [facility]-Outpatient Breast Imaging Work Phone: Start: 05-14-2023 End: 05-14-[address] Maricarmen Tavares Work Phone: [facility] Work Phone: Start: 05-14-2023 End: 05-14-[address] Maricarmen Tavares Work Phone: [facility]-Radiology, [facility] Work Phone: Start: 05-13-2023 End: 05-13-[address] Maricarmen Tavares Work Phone: [facility] Internal [facility] Work Phone: Start: 03-07-2023 End: 03-07-[address] aMricarmen Tavares Work Phone: [facility] Endocrinology Work Phone: Start: 02-08-2023 End: 02-08-[address] Maricarmen Tavares Work Phone: [facility] Work Phone: Start: 02-08-2023 End: 02-08-[address] Maricarmen Tavares Work Phone: [facility] Internal Medicine Work Phone: Start: 11-07-2022 End: 11-07-[address] Maricarmen Tavares Work Phone: [facility] Internal Medicine Work Phone: Start: 10-16-2022 End: 10-16-[address] Maricarmen Tavares Work Phone: [facility] Endocrinology Work Phone: Start: 05-03-2022 End: 05-03-[address] Maricarmen Tavares Work Phone: [facility] Work Phone: Start: 05-03-2022 End: 05-03-[address] Maricarmen Tavares Work Phone: [facility] Start: 05-02-2022 End: 05-02-[address] Maricarmen Tavares Work Phone: [facility] Work Phone: Start: 05-02-[address] Maricarmen Tavares Work Phone: [facility] Start: 05-02-2022 End: 05-02-2022 Emergency department patient visit Dr. Maricarmen Tavares Work Phone: [facility] Start: 05-02-2022 End: 05-02-[address] Maricarmen Tavares Work Phone: [facility] Start: 04-27-2022 End: 04-27-[address] Maricarmen Tavares Work Phone: [facility] Start: 04-23-2022 End: 04-23-[address] Maricarmen Tavares Work Phone: [facility] Work Phone: Start: 04-23-2022 End: 04-23-[address] Maricarmen Tavares Work Phone: [facility]-Outpatient Breast Imaging Start: 03-27-2022 End: 03-27-[address] Maricarmen Tavares Work Phone: [facility] Endocrinology Start: 02-26-2022 End: 02-26-2022 Admission to same day surgery center Dr. Pushpa Clark Work Phone: [facility]-Surgical Day Care Start: 02-26-2022 End: 02-26-[address] Pushpa Clark Work Phone: [facility] Work Phone: Start: 02-19-2022 End: 02-19-2022 Non-patient / Non-visit Dr. Maricarmen Tavares Work Phone: [facility] Start: 02-13-2022 End: 02-13-[address] Pushpa Clark Work Phone: [facility] Work Phone: Start: 02-13-2022 End: 02-13-[address] Pushpa Clark Work Phone: [facility] Start: 02-13-2022 End: 02-13-2022 Emergency department patient visit Dr. Pushpa Clark Work Phone: [facility] Start: 02-13-2022 End: 02-13-[address] Pushpa Clark Work Phone: [facility] Start: 01-31-[address] Pushpa Clark Work Phone: [facility] Start: 01-31-2022 End: 01-31-2022 Encounter for general adult medical examination without abnormal findings Dr. Pushpa Clark Work Phone: [facility] Start: 01-31-2022 End: 01-31-[address] Pushpa Clark Work Phone: [facility] Start: 12-26-2021 End: 12-26-[address] Pushpa Clark Work Phone: [facility] Work Phone: Start: 12-26-2021 End: 12-26-[address] Pushpa Clark Work Phone: [facility]-Physical Therapy Start: 12-19-2021 End: 12-19-[address] Pushpa Clark Work Phone: [facility] Start: 11-06-2021 End: 11-06-[address] Pushpa Clark Work Phone: [facility] Work Phone: Start: 11-06-2021 End: 11-06-[address] Pushpa Clark Work Phone: [facility] Start: 09-18-2021 End: 09-18-[address] Pushpa Clark Work Phone: [facility] Start: 02-01-2021 End: 02-05-2021 Outreach Lab PUSHPA CLARK MD [facility] Start: 02-01-2021 End: 02-01-2021 Patient encounter procedure PUSHPA CLARK MD [facility] Procedures Date Procedure Procedure Detail Performing Clinician Start: 12-14-[address] Maricarmen Tavares MD Work Phone: Comment on above: Previous reported re sult: 71.52 ml/minEdited by: AUTOINS on 12/14/24:1134 AMENDED REPORT 12/14/24 1134 Estimated CRCL previously reported as: 71.52 ml/min Start: 12-14-[address] e fraction Dr. Maricarmen Tavares MD Work Phone: Start: 12-14-2024 Serum inorganic phos phate measurement Dr. Maricarmen Tavares MD Work Phone: Start: 12-14-2024 Total iron binding capacity measurement Dr. Maricarmen Tavares MD Work Phone: Start: 11-17-2024 Endomysial antibody IgA level Dr. Maricarmen Tavares MD Work Phone: Start: 11-17-2024 Gliadin antibody, Ig A measurement Dr. Maricarmen Tavares MD Work Phone: Comment on above: Negative 0 - 19 Weak Positive 20 - 30 Moderate to Strong Positive >30 Start: 11-17-2024 Gliadin antibody, Ig G measurement Dr. Maricarmen Tavares MD Work Phone: Comment on above: Negative 0 - 19 Weak Positive 20 - 30 Moderate to Strong Positive >30 Start: 11-17-2024 Measurement of immunoglobulin A in serum specimen Dr. Maricarmen Tavares MD Work Phone: Comment on above: Performed at: [employer] [address] Director: Regan Bird PhD, Phone: [phone] Start: 11-12-2024 Folic acid measureme nt, RBC Dr. Maricarmen Tavares MD Work Phone: Comment on above: Performed at: [employer] [address] Director: Regan Bird PhD, Phone: [phone] Start: 11-12-[address] e fraction Dr. Maricarmen Tavares MD Work Phone: Start: 11-12-2024 Serum inorganic phos phate measurement Dr. Maricarmen Tavares MD Work Phone: Start: 11-12-2024 Total iron binding capacity measurement Dr. Maricarmen Tavares MD Work Phone: Start: 09-25-2024 Screening mammography D shara Tavares MD Work Phone: Start: 09-15-2024 Folic acid measureme nt, RBC Dr. Maricarmen Tavares MD Work Phone: Comment on above: Performed at: [address] [id number] Director: Regan Bird PhD, Phone: [phone] Start: 09-15-[address] e fraction Dr. Maricarmen Tavares MD Work Phone: Start: 09-15-2024 Serum inorganic phos phate measurement Dr. Maricarmen Tavares MD Work Phone: Start: 09-15-2024 Total iron binding capacity measurement Dr. Maricarmen Tavares MD Work Phone: Start: 08-10-2024 Measurement of occul t blood in stool specimen using immunoassay Dr. Maricarmen Tavares MD Work Phone: Start: 08-05-2024 Urine microalbumin/creatinine ratio measurement Dr. Maricarmen Tavares MD Work Phone: Comment on above: Previous reported re sult: 307.3 mg/g CREEdited by: LILIANE on 09/01/24:1103 AMENDED REPORT 09/01/24 1103 MALB:CREAT previously reported as: 307.3 mg/g CRE Start: 08-05-2024 Total iron binding capacity measurement Dr. Maricarmen Tavares MD Work Phone: Start: 07-15-2023 Cardiovascular stres s test using pharmacologic stress agent Dr. Maricarmen Tavares Work Phone: Start: 05-29-2023 CT of thorax with contrast Dr. Maricarmen Tavares Work Phone: Start: 05-22-2023 Screening mammography Veronica Tavares Work Phone: Start: 05-14-2023 Plain chest X-ray Dr. Jasvir Tavares Work Phone: Start: 05-03-2022 MRI of lower extremity Dr. Maricarmen Tavares Work Phone: Start: 04-23-2022 Screening mammography D shara Tavares Work Phone: Start: 02-26-2022 Radiologic examinati on of knee Dr. Pushpa Clark Work Phone: Start: 02-26-2022 Total Knee Replaceme nt Robotic Arm Frieda (Right) Dr. Pushpa Clark Work Phone: Start: 02-13-2022 MRI of lower extremity Dr. Pushpa Clark Work Phone: Start: 03-11-2020 Lumpectomy of right breast PUSHPA CLARK MD Start: 03-11-2020 Sebaceous cyst (morphologic abnormality) PUSHPA CLARK MD Start: 01-03-2018 Screening mammography A NASEEM CLARK MD Comment on above: BI-Rads 1; Dr. Mikhail engel; [facility] Start: 02-23-2008 Colonoscopy PUSHPA STEVEN MD Comment on above: Dr. Boateng; [facility] [place] Start: 2007 Arthroscopy of knee AND MATT CLARK MD Comment on above: Right knee with part ial medial meniscectomy; Dr. Lopez [facility] Breast biopsy and re lated procedures PUSHPA CLARK MD Comment on above: Right Cyst (disorder) PUSHPA MCCRACKEN MD Comment on above: left breast H/O: surgery History of excis ion of epidermal inclusion cyst Dr. Pushpa Clark Work Phone: Comment on above: 07/20/2020 Ligation of fallopian tube Brooke CLARK MD Nasal Screen MRSA/MSSA Dr. Brooke Clark Work Phone: Nasal Screen MRSA/MSSA Dr. Jasvir Tavares Work Phone: Plan of Treatment Date Care Activity Detail Author Start: 11-17-2024 Laboratory test [facility] Start: 11-17-2024 [facility] Start: 11-04-2024 Measurement of respiratory function [facility] Start: 09-15-2024 CBC W Auto Differential panel - Blood [facility] Start: 09-15-2024 Comprehensive metabolic 2000 panel - Serum or Plasma [facility] Start: 09-15-2024 Erythrocyte sedimentation rate [facility] Start: 09-15-2024 Erythropoietin (EPO) [Units/volume] in Serum or Plasma [facility] Start: 09-15-2024 Ferritin [Mass/volume] in Serum or Plasma [facility] Start: 09-15-2024 Folic acid measurement, RBC [facility] Start: 09-15-2024 Iron and Iron binding capacity panel - Serum or Plasma [facility] Start: 09-15-2024 Lactate dehydrogenase measurement [facility] Start: 09-15-2024 Magnesium measurement [facility] Start: 09-15-2024 Reticulocyte count [facility] Start: 09-15-2024 Serum inorganic phosphate measurement [facility] Start: 09-15-2024 Vitamin B12 measurement [facility] Start: 08-10-2024 Stool Occult Blood (ARIELLA) Stool Occult Blood (ARIELLA) [facility] Start: 08-05-2024 Basic metabolic 2008 panel with ionized calcium - Serum or Plasma [facility] Start: 08-05-2024 CBC W Auto Differential panel - Blood [facility] Start: 06-19-2023 Patient referral [facility] Work Phone: Start: 06-19-2023 Liquid based cervical cytology screening [facility] Start: 05-13-2023 Evaluation of diagnostic study results [facility] Start: 05-13-2023 Patient referral [facility] Work Phone: Start: 02-26-2022 Anesth open/surg arthrs total knee arthroplasty ANESTH KNEE ARTHROPLASTY [facility] Start: 02-26-2022 Arthrp kne condyle&platu medial&lat compartments TOTAL KNEE ARTHROPLASTY [facility] Start: 02-26-2022 Injection aa&/strd other peripheral nerve/branch NJX AA&/STRD OTHER PN/BRANCH [facility] Start: 02-26-2022 Application of ice collar, cap or bag [facility] Start: 02-26-2022 Exercises [facility] Start: 02-26-2022 Incentive spirometry [facility] Start: 02-26-2022 Neurovascular assessment [facility] Start: 02-26-2022 Patient discharge [facility] Start: 02-26-2022 Patient education [facility] Start: 02-26-2022 Provision of activity privileges [facility] Start: 02-26-2022 Recommendation to continue with treatment [facility] Start: 02-26-2022 Referral to service [facility] Start: 02-26-2022 Vital signs measurements [facility] Start: 02-26-2022 Wound care [facility] Start: 02-26-2022 [facility] Start: 01-31-2022 Patient referral [facility] Work Phone: Alanine aminotransfe rase [Enzymatic activity/volume] in Serum or Plasma [facility] Albumin [Mass/volume ] in Serum or Plasma [facility] Alkaline phosphatase [Enzymatic activity/volume] in Serum or Plasma [facility] Anion gap in Serum or Plasma [facility] Anion gap in Serum or Plasma [facility] Bilirubin, total measurement [facility] BUN/Creatinine ratio [facility] BUN/Creatinine ratio [facility] Calcium [Mass/volume ] in Serum or Plasma [facility] Calcium [Mass/volume ] in Serum or Plasma [facility] Carbon dioxide, tota l [Moles/volume] in Central venous blood [facility] Carbon dioxide, tota l [Moles/volume] in Central venous blood [facility] Creatinine [Mass/vol ume] in Serum or Plasma [facility] Creatinine [Mass/vol ume] in Serum or Plasma [facility] Electrocardiographic procedure [facility] Work Phone: Electrocardiographic procedure [facility] Erythrocyte mean cor puscular volume determination [facility] Folate [Moles/volume ] in Serum or Plasma [facility] Gliadin peptide IgA Ab [Units/volume] in Serum [facility] Gliadin peptide IgG Ab [Units/volume] in Serum [facility] Glucose [Mass/volume ] in Serum or Plasma [facility] Glucose [Mass/volume ] in Serum or Plasma [facility] Hematocrit [Volume F raction] of Blood [facility] Hematocrit [Volume F raction] of Blood [facility] Hemoglobin [Mass/vol ume] in Blood [facility] Leukocytes [#/volume] in Blood [facility] Liver stiffness by US.transient elastography [facility] Mean corpuscular hem oglobin concentration determination [facility] Mean corpuscular hem oglobin determination [facility] Measurement of immun oglobulin A in serum specimen [facility] Measurement of occul t blood in stool specimen using immunoassay [facility] Measurement of renal function [facility] Measurement of renal function [facility] MG Breast - bilatera l Screening [facility] Work Phone: MG Breast - bilatera l Screening [facility] MG Breast - bilatera l Screening [facility] Neutrophil count [facility] Neutrophil percent differential count [facility] NM Heart Views W str ess and W radionuclide IV [facility] Path report.final Dx Spec [facility] Patient referral [facility] Work Phone: Platelets [#/volume] in Blood [facility] Potassium measurement [facility] Potassium measurement [facility] Red blood cell count [facility] Red cell distributio n width determination [facility] Serum chloride measurement [facility] Serum chloride measurement [facility] Sodium measurement [facility] Sodium measurement [facility] T4 free measurement [facility] Thyroid stimulating hormone measurement [facility] Tissue transglutamin ase IgA Ab [Units/volume] in Serum [facility] Total protein measurement [facility] Urea nitrogen [Mass/ volume] in Serum or Plasma [facility] Urea nitrogen [Mass/ volume] in Serum or Plasma [facility] Urine microalbumin/c reatinine ratio measurement [facility] US Heart [facility] Immunizations Immunization Date Immunization Notes Care Provider Fa cili 12-11-2023 Seasonal trivalent influenza vaccine, adjuvanted, preservative free Dr. Maricarmen Tavares MD Work Phone: [facility] 06-09-2020 Covid (Pfizer) Dr. Pushpa mckeon Work Phone: [facility] 05-19-2020 Covid (Pfizer) Dr. Pushpa mckeon Work Phone: [facility] 12-08-2019 influenza virus vaccine, unspecified formulation PUSHPA CLARK MD [facility] Comment on above: Result Comment: [facility] 01-14-2019 influenza, injectabl e, quadrivalent, preservative free; Translations: [Fluarix PF Quadrivalent ] PUSHPA CLARK MD [facility] 12-08-2018 influenza virus vaccine, unspecified formulation PUSHPA CLARK MD [facility] 12-02-2018 influenza virus vaccine, unspecified formulation PUSHPA CLARK MD [facility] Payers Date Payer Category Payer Self-pay [id number] [id number] Medicare [id number] [facility] 2016 Unknown ANTHEM [id number] Medicare MEDICARE A ONLY [id number] Medicare MEDICARE A ONLY [id number] Private Health Insurance [id number] Unknown [id number] Unknown [id number] Unknown [id number] Unknown [id number] Unknown [id number] Unknown [id number] Unknown [id number] Unknown [id number] Unknown [id number] [id number] Unknown [id number] [id number] Unknown [id number] [id number] Unknown [id number] [id number] Unknown [id number] Unknown [id number] [id number] Unknown [id number] Unknown [id number] [id number] Unknown [id number] Unknown [id number] Social History Date Type Detail Facility Start: 01-14-2019 End: 10-28-2023 Never smoked tobacco (finding) [facility] Comment on above: no tobacco smoke exp osure Start: 1955 Sex Assigned At Female A [facility] Start: 11-06-2021 End: 06-19-2023 Tobacco smoking status NHIS Unknown if ever smoked [facility] Sex Female [facility] Medical Equipment Procedure Code Equipment Code Equipment Origin al Text Equipment Identifier Dates SUTURE,LIGA CLIP MED [id number] FDA Start: 06-29-2020 SUTURE,LIGA CLIP SM LT-100 FDA Start: 06-29-2020 SUTURE,LIGA CLIP SM LT-100 FDA Start: 06-29-2020 SUTURE,LIGA CLIP SM LT-100 FDA Start: 06-29-2020 Pen Needle, Diab etic (Bd Ultra-Fine Ale Pen Needle) 32 gauge x 5/32 needle Start: 02-16-2021 Pen Needle, Diab etic (Bd Ultra-Fine Ale Pen Needle) 32 gauge x 5/32 needle Start: 04-07-2020 End: 08-18-2020 Pen Needle, Diab etic (Bd Ultra-Fine Ale Pen Needle) 32 gauge x 5/32 needle Start: 08-18-2020 End: 02-16-2021 SUTURE,LIGA CLIP MED [id number] FDA Start: 06-29-2020 SUTURE,LIGA CLIP SM LT-100 FDA Start: 06-29-2020 SUTURE,LIGA CLIP SM LT-100 FDA Start: 06-29-2020 SUTURE,LIGA CLIP SM LT-100 FDA Start: 06-29-2020 Pen Needle, Diab etic (Bd Ultra-Fine Ale Pen Needle) 32 gauge x 5/32 needle Start: 12-19-2021 Pen Needle, Diab etic (Bd Ultra-Fine Ale Pen Needle) 32 gauge x 5/32 needle Start: 04-07-2020 End: 08-18-2020 Pen Needle, Diab etic (Bd Ultra-Fine Ale Pen Needle) 32 gauge x 5/32 needle Start: 08-18-2020 End: 02-16-2021 Pen Needle, Diab etic (Bd Ultra-Fine Ale Pen Needle) 32 gauge x 5/32 needle Start: 02-16-2021 End: 12-19-2021 SUTURE,LIGA CLIP MED [id number] FDA Start: 06-29-2020 SUTURE,LIGA CLIP SM LT-100 FDA Start: 06-29-2020 SUTURE,LIGA CLIP SM LT-100 FDA Start: 06-29-2020 SUTURE,LIGA CLIP SM LT-100 FDA Start: 06-29-2020 Pen Needle, Diab etic (Bd Ultra-Fine Ale Pen Needle) 32 gauge x 5/32 needle Start: 12-19-2021 Pen Needle, Diab etic (Bd Ultra-Fine Ale Pen Needle) 32 gauge x 5/32 needle Start: 04-07-2020 End: 08-18-2020 Pen Needle, Diab etic (Bd Ultra-Fine Ale Pen Needle) 32 gauge x 5/32 needle Start: 08-18-2020 End: 02-16-2021 Pen Needle, Diab etic (Bd Ultra-Fine Ale Pen Needle) 32 gauge x 5/32 needle Start: 02-16-2021 End: 12-19-2021 SUTURE,LIGA CLIP MED LT200 FDA Start: 06-29-2020 SUTURE,LIGA CLIP SM LT-100 FDA Start: 06-29-2020 SUTURE,LIGA CLIP SM LT-100 FDA Start: 06-29-2020 SUTURE,LIGA CLIP SM LT-100 FDA Start: 06-29-2020 Pen Needle, Diab etic (Bd Ultra-Fine Ale Pen Needle) 32 gauge x 5/32 needle Start: 12-19-2021 Pen Needle, Diab etic (Bd Ultra-Fine Ale Pen Needle) 32 gauge x 5/32 needle Start: 04-07-2020 End: 08-18-2020 Pen Needle, Diab etic (Bd Ultra-Fine Ale Pen Needle) 32 gauge x 5/32 needle Start: 08-18-2020 End: 02-16-2021 Pen Needle, Diab etic (Bd Ultra-Fine Ale Pen Needle) 32 gauge x 5/32 needle Start: 02-16-2021 End: 12-19-2021 SUTURE,LIGA CLIP MED LT200 FDA Start: 06-29-2020 SUTURE,LIGA CLIP SM LT-100 FDA Start: 06-29-2020 SUTURE,LIGA CLIP SM LT-100 FDA Start: 06-29-2020 SUTURE,LIGA CLIP SM LT-100 FDA Start: 06-29-2020 CS INSERT FDA Start: 02-26-2022 DR FEMUR FDA Start: 02-26-2022 PATELLA FDA Start: 02-26-2022 tibia FDA Start: 02-26-2022 Pen Needle, Diab etic (Bd Ultra-Fine Ale Pen Needle) 32 gauge x 5/32 needle Start: 12-19-2021 Pen Needle, Diab etic (Bd Ultra-Fine Ale Pen Needle) 32 gauge x 5/32 needle Start: 04-07-2020 End: 08-18-2020 Pen Needle, Diab etic (Bd Ultra-Fine Ale Pen Needle) 32 gauge x 5/32 needle Start: 08-18-2020 End: 02-16-2021 Pen Needle, Diab etic (Bd Ultra-Fine Ale Pen Needle) 32 gauge x 5/32 needle Start: 02-16-2021 End: 12-19-2021 SUTURE,LIGA CLIP MED LT200 FDA Start: 06-29-2020 SUTURE,LIGA CLIP SM LT-100 FDA Start: 06-29-2020 SUTURE,LIGA CLIP SM LT-100 FDA Start: 06-29-2020 SUTURE,LIGA CLIP SM LT-100 FDA Start: 06-29-2020 CS INSERT FDA Start: 02-26-2022 DR FEMUR FDA Start: 02-26-2022 PATELLA FDA Start: 02-26-2022 tibia FDA Start: 02-26-2022 Pen Needle, Diab etic (Bd Ultra-Fine Ale Pen Needle) 32 gauge x 5/32 needle Start: 12-19-2021 Pen Needle, Diab etic (Bd Ultra-Fine Ale Pen Needle) 32 gauge x 5/32 needle Start: 04-07-2020 End: 08-18-2020 Pen Needle, Diab etic (Bd Ultra-Fine Ale Pen Needle) 32 gauge x 5/32 needle Start: 08-18-2020 End: 02-16-2021 Pen Needle, Diab etic (Bd Ultra-Fine Ale Pen Needle) 32 gauge x 5/32 needle Start: 02-16-2021 End: 12-19-2021 SUTURE,LIGA CLIP MED LT200 FDA Start: 06-29-2020 SUTURE,LIGA CLIP SM LT-100 FDA Start: 06-29-2020 SUTURE,LIGA CLIP SM LT-100 FDA Start: 06-29-2020 SUTURE,LIGA CLIP SM LT-100 FDA Start: 06-29-2020 CS INSERT FDA Start: 02-26-2022 DR MILES FDA Start: 02-26-2022 PATELLA FDA Start: 02-26-2022 tibia FDA Start: 02-26-2022 Pen Needle, Diab etic (Bd Ultra-Fine Ale Pen Needle) 32 gauge x 5/32 needle Start: 12-19-2021 Pen Needle, Diab etic (Bd Ultra-Fine Ale Pen Needle) 32 gauge x 5/32 needle Start: 04-07-2020 End: 08-18-2020 Pen Needle, Diab etic (Bd Ultra-Fine Ale Pen Needle) 32 gauge x 5/32 needle Start: 08-18-2020 End: 02-16-2021 Pen Needle, Diab etic (Bd Ultra-Fine Ale Pen Needle) 32 gauge x 5/32 needle Start: 02-16-2021 End: 12-19-2021 SUTURE,LIGA CLIP MED LT200 FDA Start: 06-29-2020 SUTURE,LIGA CLIP SM LT-100 FDA Start: 06-29-2020 SUTURE,LIGA CLIP SM LT-100 FDA Start: 06-29-2020 SUTURE,LIGA CLIP SM LT-100 FDA Start: 06-29-2020 CS INSERT FDA Start: 02-26-2022 DR MILES FDA Start: 02-26-2022 PATELLA FDA Start: 02-26-2022 tibia FDA Start: 02-26-2022 Pen Needle, Diab etic (Bd Ultra-Fine Ale Pen Needle) 32 gauge x 5/32 needle Start: 12-19-2021 Pen Needle, Diab etic (Bd Ultra-Fine Ale Pen Needle) 32 gauge x 5/32 needle Start: 04-07-2020 End: 08-18-2020 Pen Needle, Diab etic (Bd Ultra-Fine Ale Pen Needle) 32 gauge x 5/32 needle Start: 08-18-2020 End: 02-16-2021 Pen Needle, Diab etic (Bd Ultra-Fine Ale Pen Needle) 32 gauge x 5/32 needle Start: 02-16-2021 End: 12-19-2021 SUTURE,LIGA CLIP MED LT200 FDA Start: 06-29-2020 SUTURE,LIGA CLIP SM LT-100 FDA Start: 06-29-2020 SUTURE,LIGA CLIP SM LT-100 FDA Start: 06-29-2020 SUTURE,LIGA CLIP SM LT-100 FDA Start: 06-29-2020 CS INSERT FDA Start: 02-26-2022 DR FEMUR FDA Start: 02-26-2022 PATELLA FDA Start: 02-26-2022 tibia FDA Start: 02-26-2022 Pen Needle, Diab etic (Bd Ultra-Fine Ale Pen Needle) 32 gauge x 5/32 needle Start: 12-19-2021 Pen Needle, Diab etic (Bd Ultra-Fine Lae Pen Needle) 32 gauge x 5/32 needle Start: 04-07-2020 End: 08-18-2020 Pen Needle, Diab etic (Bd Ultra-Fine Ale Pen Needle) 32 gauge x 5/32 needle Start: 08-18-2020 End: 02-16-2021 Pen Needle, Diab etic (Bd Ultra-Fine Ale Pen Needle) 32 gauge x 5/32 needle Start: 02-16-2021 End: 12-19-2021 SUTURE,LIGA CLIP MED LT200 FDA Start: 06-29-2020 SUTURE,LIGA CLIP SM LT-100 FDA Start: 06-29-2020 SUTURE,LIGA CLIP SM LT-100 FDA Start: 06-29-2020 SUTURE,LIGA CLIP SM LT-100 FDA Start: 06-29-2020 CS INSERT FDA Start: 02-26-2022 DR FEMUR FDA Start: 02-26-2022 PATELLA FDA Start: 02-26-2022 tibia FDA Start: 02-26-2022 Pen Needle, Diab etic (Bd Ultra-Fine Ale Pen Needle) 32 gauge x 5/32 needle Start: 12-19-2021 Pen Needle, Diab etic (Bd Ultra-Fine Ale Pen Needle) 32 gauge x 5/32 needle Start: 04-07-2020 End: 08-18-2020 Pen Needle, Diab etic (Bd Ultra-Fine Ale Pen Needle) 32 gauge x 5/32 needle Start: 08-18-2020 End: 02-16-2021 Pen Needle, Diab etic (Bd Ultra-Fine Ale Pen Needle) 32 gauge x 5/32 needle Start: 02-16-2021 End: 12-19-2021 SUTURE,LIGA CLIP MED LT200 FDA Start: 06-29-2020 SUTURE,LIGA CLIP SM LT-100 FDA Start: 06-29-2020 SUTURE,LIGA CLIP SM LT-100 FDA Start: 06-29-2020 SUTURE,LIGA CLIP SM LT-100 FDA Start: 06-29-2020 CS INSERT FDA Start: 02-26-2022 DR FEMUR FDA Start: 02-26-2022 PATELLA FDA Start: 02-26-2022 tibia FDA Start: 02-26-2022 Pen Needle, Diab etic (Bd Ultra-Fine Ale Pen Needle) 32 gauge x 5/32 needle Start: 12-19-2021 Pen Needle, Diab etic (Bd Ultra-Fine Ale Pen Needle) 32 gauge x 5/32 needle Start: 04-07-2020 End: 08-18-2020 Pen Needle, Diab etic (Bd Ultra-Fine Ale Pen Needle) 32 gauge x 5/32 needle Start: 08-18-2020 End: 02-16-2021 Pen Needle, Diab etic (Bd Ultra-Fine Ale Pen Needle) 32 gauge x 5/32 needle Start: 02-16-2021 End: 12-19-2021 SUTURE,LIGA CLIP MED LT200 FDA Start: 06-29-2020 SUTURE,LIGA CLIP SM LT-100 FDA Start: 06-29-2020 SUTURE,LIGA CLIP SM LT-100 FDA Start: 06-29-2020 SUTURE,LIGA CLIP SM LT-100 FDA Start: 06-29-2020 CS INSERT FDA Start: 02-26-2022 DR FEMUR FDA Start: 02-26-2022 PATELLA FDA Start: 02-26-2022 tibia FDA Start: 02-26-2022 Pen Needle, Diab etic (Bd Ultra-Fine Ale Pen Needle) 32 gauge x 5/32 needle Start: 12-19-2021 Pen Needle, Diab etic (Bd Ultra-Fine Ale Pen Needle) 32 gauge x 5/32 needle Start: 04-07-2020 End: 08-18-2020 Pen Needle, Diab etic (Bd Ultra-Fine Ale Pen Needle) 32 gauge x 5/32 needle Start: 08-18-2020 End: 02-16-2021 Pen Needle, Diab etic (Bd Ultra-Fine Ale Pen Needle) 32 gauge x 5/32 needle Start: 02-16-2021 End: 12-19-2021 SUTURE,LIGA CLIP MED LT200 FDA Start: 06-29-2020 SUTURE,LIGA CLIP SM LT-100 FDA Start: 06-29-2020 SUTURE,LIGA CLIP SM LT-100 FDA Start: 06-29-2020 SUTURE,LIGA CLIP SM LT-100 FDA Start: 06-29-2020 CS INSERT FDA Start: 02-26-2022 DR FEMUR FDA Start: 02-26-2022 PATELLA FDA Start: 02-26-2022 tibia FDA Start: 02-26-2022 Pen Needle, Diab etic (Bd Ultra-Fine Ale Pen Needle) 32 gauge x 5/32 needle Start: 12-19-2021 Pen Needle, Diab etic (Bd Ultra-Fine Ale Pen Needle) 32 gauge x 5/32 needle Start: 04-07-2020 End: 08-18-2020 Pen Needle, Diab etic (Bd Ultra-Fine Ale Pen Needle) 32 gauge x 5/32 needle Start: 08-18-2020 End: 02-16-2021 Pen Needle, Diab etic (Bd Ultra-Fine Ale Pen Needle) 32 gauge x 5/32 needle Start: 02-16-2021 End: 12-19-2021 SUTURE,LIGA CLIP MED LT200 FDA Start: 06-29-2020 SUTURE,LIGA CLIP SM LT-100 FDA Start: 06-29-2020 SUTURE,LIGA CLIP SM LT-100 FDA Start: 06-29-2020 SUTURE,LIGA CLIP SM LT-100 FDA Start: 06-29-2020 CS INSERT FDA Start: 02-26-2022 DR FEMUR FDA Start: 02-26-2022 PATELLA FDA Start: 02-26-2022 tibia FDA Start: 02-26-2022 Pen Needle, Diab etic (Bd Ultra-Fine Ale Pen Needle) 32 gauge x 5/32 needle Start: 05-11-2024 Pen Needle, Diab etic (Bd Ultra-Fine Ale Pen Needle) 32 gauge x 5/32 needle Start: 04-07-2020 End: 08-18-2020 Pen Needle, Diab etic (Bd Ultra-Fine Ale Pen Needle) 32 gauge x 5/32 needle Start: 08-18-2020 End: 02-16-2021 Pen Needle, Diab etic (Bd Ultra-Fine Ale Pen Needle) 32 gauge x 5/32 needle Start: 02-16-2021 End: 12-19-2021 Pen Needle, Diab etic (Bd Ultra-Fine Ale Pen Needle) 32 gauge x 5/32 needle Start: 12-19-2021 End: 01-20-2024 Pen Needle, Diab etic (Bd Ultra-Fine Ale Pen Needle) 32 gauge x 5/32 needle Start: 01-20-2024 End: 05-11-2024 SUTURE,LIGA CLIP MED LT200 FDA Start: 06-29-2020 SUTURE,LIGA CLIP SM LT-100 FDA Start: 06-29-2020 SUTURE,LIGA CLIP SM LT-100 FDA Start: 06-29-2020 SUTURE,LIGA CLIP SM LT-100 FDA Start: 06-29-2020 CS INSERT FDA Start: 02-26-2022 DR MILES FDA Start: 02-26-2022 PATELLA FDA Start: 02-26-2022 tibia FDA Start: 02-26-2022 Pen Needle, Diab etic (Bd Ultra-Fine Ale Pen Needle) 32 gauge x 5/32 needle Start: 05-11-2024 Pen Needle, Diab etic (Bd Ultra-Fine Ale Pen Needle) 32 gauge x 5/32 needle Start: 04-07-2020 End: 08-18-2020 Pen Needle, Diab etic (Bd Ultra-Fine Ale Pen Needle) 32 gauge x 5/32 needle Start: 08-18-2020 End: 02-16-2021 Pen Needle, Diab etic (Bd Ultra-Fine Ale Pen Needle) 32 gauge x 5/32 needle Start: 02-16-2021 End: 12-19-2021 Pen Needle, Diab etic (Bd Ultra-Fine Ale Pen Needle) 32 gauge x 5/32 needle Start: 12-19-2021 End: 01-20-2024 Pen Needle, Diab etic (Bd Ultra-Fine Ale Pen Needle) 32 gauge x 5/32 needle Start: 01-20-2024 End: 05-11-2024 SUTURE,LIGA CLIP MED LT200 FDA Start: 06-29-2020 SUTURE,LIGA CLIP SM LT-100 FDA Start: 06-29-2020 SUTURE,LIGA CLIP SM LT-100 FDA Start: 06-29-2020 SUTURE,LIGA CLIP SM LT-100 FDA Start: 06-29-2020 CS INSERT FDA Start: 02-26-2022 DR FEMUR FDA Start: 02-26-2022 PATELLA FDA Start: 02-26-2022 tibia FDA Start: 02-26-2022 Pen Needle, Diab etic (Bd Ultra-Fine Ale Pen Needle) 32 gauge x 5/32 needle Start: 05-11-2024 Pen Needle, Diab etic (Bd Ultra-Fine Ale Pen Needle) 32 gauge x 5/32 needle Start: 04-07-2020 End: 08-18-2020 Pen Needle, Diab etic (Bd Ultra-Fine Ale Pen Needle) 32 gauge x 5/32 needle Start: 08-18-2020 End: 02-16-2021 Pen Needle, Diab etic (Bd Ultra-Fine Ale Pen Needle) 32 gauge x 5/32 needle Start: 02-16-2021 End: 12-19-2021 Pen Needle, Diab etic (Bd Ultra-Fine Ale Pen Needle) 32 gauge x 5/32 needle Start: 12-19-2021 End: 01-20-2024 Pen Needle, Diab etic (Bd Ultra-Fine Ale Pen Needle) 32 gauge x 5/32 needle Start: 01-20-2024 End: 05-11-2024 SUTURE,LIGA CLIP MED LT200 FDA Start: 06-29-2020 SUTURE,LIGA CLIP SM LT-100 FDA Start: 06-29-2020 SUTURE,LIGA CLIP SM LT-100 FDA Start: 06-29-2020 SUTURE,LIGA CLIP SM LT-100 FDA Start: 06-29-2020 CS INSERT FDA Start: 02-26-2022 DR FEMUR FDA Start: 02-26-2022 PATELLA FDA Start: 02-26-2022 tibia FDA Start: 02-26-2022 Pen Needle, Diab etic (Bd Ultra-Fine Ale Pen Needle) 32 gauge x 5/32 needle Start: 05-11-2024 Pen Needle, Diab etic (Bd Ultra-Fine Ale Pen Needle) 32 gauge x 5/32 needle Start: 04-07-2020 End: 08-18-2020 Pen Needle, Diab etic (Bd Ultra-Fine Ale Pen Needle) 32 gauge x 5/32 needle Start: 08-18-2020 End: 02-16-2021 Pen Needle, Diab etic (Bd Ultra-Fine Ale Pen Needle) 32 gauge x 5/32 needle Start: 02-16-2021 End: 12-19-2021 Pen Needle, Diab etic (Bd Ultra-Fine Ale Pen Needle) 32 gauge x 5/32 needle Start: 12-19-2021 End: 01-20-2024 Pen Needle, Diab etic (Bd Ultra-Fine Ale Pen Needle) 32 gauge x 5/32 needle Start: 01-20-2024 End: 05-11-2024 SUTURE,LIGA CLIP MED LT200 FDA Start: 06-29-2020 SUTURE,LIGA CLIP SM LT-100 FDA Start: 06-29-2020 SUTURE,LIGA CLIP SM LT-100 FDA Start: 06-29-2020 SUTURE,LIGA CLIP SM LT-100 FDA Start: 06-29-2020 CS INSERT FDA Start: 02-26-2022 DR MILES FDA Start: 02-26-2022 PATELLA FDA Start: 02-26-2022 tibia FDA Start: 02-26-2022 Pen Needle, Diab etic (Bd Ultra-Fine Ale Pen Needle) 32 gauge x 5/32 needle Start: 05-11-2024 Pen Needle, Diab etic (Bd Ultra-Fine Ale Pen Needle) 32 gauge x 5/32 needle Start: 04-07-2020 End: 08-18-2020 Pen Needle, Diab etic (Bd Ultra-Fine Ale Pen Needle) 32 gauge x 5/32 needle Start: 08-18-2020 End: 02-16-2021 Pen Needle, Diab etic (Bd Ultra-Fine Ale Pen Needle) 32 gauge x 5/32 needle Start: 02-16-2021 End: 12-19-2021 Pen Needle, Diab etic (Bd Ultra-Fine Ale Pen Needle) 32 gauge x 5/32 needle Start: 12-19-2021 End: 01-20-2024 Pen Needle, Diab etic (Bd Ultra-Fine Ale Pen Needle) 32 gauge x 5/32 needle Start: 01-20-2024 End: 05-11-2024 SUTURE,LIGA CLIP MED LT200 FDA Start: 06-29-2020 SUTURE,LIGA CLIP SM LT-100 FDA Start: 06-29-2020 SUTURE,LIGA CLIP SM LT-100 FDA Start: 06-29-2020 SUTURE,LIGA CLIP SM LT-100 FDA Start: 06-29-2020 CS INSERT FDA Start: 02-26-2022 DR FEMUR FDA Start: 02-26-2022 PATELLA FDA Start: 02-26-2022 tibia FDA Start: 02-26-2022 Pen Needle, Diab etic (Bd Ultra-Fine Ale Pen Needle) 32 gauge x 5/32 needle Start: 05-11-2024 Pen Needle, Diab etic (Bd Ultra-Fine Ale Pen Needle) 32 gauge x 5/32 needle Start: 04-07-2020 End: 08-18-2020 Pen Needle, Diab etic (Bd Ultra-Fine Ale Pen Needle) 32 gauge x 5/32 needle Start: 08-18-2020 End: 02-16-2021 Pen Needle, Diab etic (Bd Ultra-Fine Ale Pen Needle) 32 gauge x 5/32 needle Start: 02-16-2021 End: 12-19-2021 Pen Needle, Diab etic (Bd Ultra-Fine Ale Pen Needle) 32 gauge x 5/32 needle Start: 12-19-2021 End: 01-20-2024 Pen Needle, Diab etic (Bd Ultra-Fine Ale Pen Needle) 32 gauge x 5/32 needle Start: 01-20-2024 End: 05-11-2024 SUTURE,LIGA CLIP MED LT200 FDA Start: 06-29-2020 SUTURE,LIGA CLIP SM LT-100 FDA Start: 06-29-2020 SUTURE,LIGA CLIP SM LT-100 FDA Start: 06-29-2020 SUTURE,LIGA CLIP SM LT-100 FDA Start: 06-29-2020 CS INSERT FDA Start: 02-26-2022 DR FEMUR FDA Start: 02-26-2022 PATELLA FDA Start: 02-26-2022 tibia FDA Start: 02-26-2022 Pen Needle, Diab etic (Bd Ultra-Fine Ale Pen Needle) 32 gauge x 5/32 needle Start: 05-11-2024 Pen Needle, Diab etic (Bd Ultra-Fine Ale Pen Needle) 32 gauge x 5/32 needle Start: 04-07-2020 End: 08-18-2020 Pen Needle, Diab etic (Bd Ultra-Fine Ale Pen Needle) 32 gauge x 5/32 needle Start: 08-18-2020 End: 02-16-2021 Pen Needle, Diab etic (Bd Ultra-Fine Ale Pen Needle) 32 gauge x 5/32 needle Start: 02-16-2021 End: 12-19-2021 Pen Needle, Diab etic (Bd Ultra-Fine Ale Pen Needle) 32 gauge x 5/32 needle Start: 12-19-2021 End: 01-20-2024 Pen Needle, Diab etic (Bd Ultra-Fine Ale Pen Needle) 32 gauge x 5/32 needle Start: 01-20-2024 End: 05-11-2024 SUTURE,LIGA CLIP MED LT200 FDA Start: 06-29-2020 SUTURE,LIGA CLIP SM LT-100 FDA Start: 06-29-2020 SUTURE,LIGA CLIP SM LT-100 FDA Start: 06-29-2020 SUTURE,LIGA CLIP SM LT-100 FDA Start: 06-29-2020 CS INSERT FDA Start: 02-26-2022 DR GINEGR FDA Start: 02-26-2022 PATELLA FDA Start: 02-26-2022 tibia FDA Start: 02-26-2022 Pen Needle, Diab etic (Bd Ultra-Fine Ale Pen Needle) 32 gauge x 5/32 needle Start: 05-11-2024 Pen Needle, Diab etic (Bd Ultra-Fine Ale Pen Needle) 32 gauge x 5/32 needle Start: 04-07-2020 End: 08-18-2020 Pen Needle, Diab etic (Bd Ultra-Fine Ale Pen Needle) 32 gauge x 5/32 needle Start: 08-18-2020 End: 02-16-2021 Pen Needle, Diab etic (Bd Ultra-Fine Ale Pen Needle) 32 gauge x 5/32 needle Start: 02-16-2021 End: 12-19-2021 Pen Needle, Diab etic (Bd Ultra-Fine Ale Pen Needle) 32 gauge x 5/32 needle Start: 12-19-2021 End: 01-20-2024 Pen Needle, Diab etic (Bd Ultra-Fine Ale Pen Needle) 32 gauge x 5/32 needle Start: 01-20-2024 End: 05-11-2024 SUTURE,LIGA CLIP MED LT200 FDA Start: 06-29-2020 SUTURE,LIGA CLIP SM LT-100 FDA Start: 06-29-2020 SUTURE,LIGA CLIP SM LT-100 FDA Start: 06-29-2020 SUTURE,LIGA CLIP SM LT-100 FDA Start: 06-29-2020 CS INSERT FDA Start: 02-26-2022 DR FEMUR FDA Start: 02-26-2022 PATELLA FDA Start: 02-26-2022 tibia FDA Start: 02-26-2022 Pen Needle, Diab etic (Bd Ultra-Fine Ale Pen Needle) 32 gauge x 5/32 needle Start: 05-11-2024 Pen Needle, Diab etic (Bd Ultra-Fine Ale Pen Needle) 32 gauge x 5/32 needle Start: 04-07-2020 End: 08-18-2020 Pen Needle, Diab etic (Bd Ultra-Fine Ale Pen Needle) 32 gauge x 5/32 needle Start: 08-18-2020 End: 02-16-2021 Pen Needle, Diab etic (Bd Ultra-Fine Ale Pen Needle) 32 gauge x 5/32 needle Start: 02-16-2021 End: 12-19-2021 Pen Needle, Diab etic (Bd Ultra-Fine Ale Pen Needle) 32 gauge x 5/32 needle Start: 12-19-2021 End: 01-20-2024 Pen Needle, Diab etic (Bd Ultra-Fine Ale Pen Needle) 32 gauge x 5/32 needle Start: 01-20-2024 End: 05-11-2024 SUTURE,LIGA CLIP MED LT200 FDA Start: 06-29-2020 SUTURE,LIGA CLIP SM LT-100 FDA Start: 06-29-2020 SUTURE,LIGA CLIP SM LT-100 FDA Start: 06-29-2020 SUTURE,LIGA CLIP SM LT-100 FDA Start: 06-29-2020 CS INSERT FDA Start: 02-26-2022 DR FEMUR FDA Start: 02-26-2022 PATELLA FDA Start: 02-26-2022 tibia FDA Start: 02-26-2022 Pen Needle, Diab etic (Bd Ultra-Fine Ale Pen Needle) 32 gauge x 5/32 needle Start: 05-11-2024 Pen Needle, Diab etic (Bd Ultra-Fine Ale Pen Needle) 32 gauge x 5/32 needle Start: 04-07-2020 End: 08-18-2020 Pen Needle, Diab etic (Bd Ultra-Fine Ale Pen Needle) 32 gauge x 5/32 needle Start: 08-18-2020 End: 02-16-2021 Pen Needle, Diab etic (Bd Ultra-Fine Ale Pen Needle) 32 gauge x 5/32 needle Start: 02-16-2021 End: 12-19-2021 Pen Needle, Diab etic (Bd Ultra-Fine Ale Pen Needle) 32 gauge x 5/32 needle Start: 12-19-2021 End: 01-20-2024 Pen Needle, Diab etic (Bd Ultra-Fine Ale Pen Needle) 32 gauge x 5/32 needle Start: 01-20-2024 End: 05-11-2024 Goals Date Patient Goal Desired Activity /State Mental Status Date Assessment Result Facility 02-26-2022 Cognitive function Level Of Cons ciousness Awake;Alert;Appropriate [facility] Work Phone: 02-26-2022 Cognitive function Voice/Name [facility] Work Phone: Clinical Notes 05-04-2020 to 12-15-2024 Note Date & Type Note Facility 12-15-2024 Progress note [facility] 11-17-2024 Progress note [facility] 11-17-2024 Progress note Note Date/Time November 17, 2024 1:43pm [facility] [address] [place] [id number] OFFICE VISIT Date of Service: 11/17/24 1246 MR#: [id number] Acct: [id number] Name: KIRILL ALMAZAN Rep #: [id number] : 1955 From: Anselmo Gallagher MD Age/Sex: 69/F [place] [facility] [place] Status: Signed HPI Subjective Date of Service 11/17/24 Chief Complaint F/U CHARLIE History of Present Illness 69-year-old woman was found to have iron deficiency anemia. She started iron rich food for 2 months but hemoglobin remained stable so referred for further evaluation. She has hemorrhoids which has not been bleeding for a long time. She had not taken oral iron pills so elected to do oral Iron. Comes for follow up after 2 months. Feels well. [facility]LY [facility] Medical History Iron deficiency anemia Anemia Chronic cough Flu vaccine need Cardiology follow-up encounter History of echocardiogram History of stress test Diabetes FH: sudden cardiac (SCD) Retinal hemorrhage, right eye Hyperopia of both eyes with regular astigmatism and presbyopia Epiretinal membrane (ERM) of left eye Combined forms of age-related cataract, bilateral Venous insufficiency of both lower extremities Insulin dependent diabetes mellitus Kidney stones Injury of head and neck Leg cramps Anxiety and depression Osteoarthritis of knee Meralgia paresthetica of left side Sacroiliitis Sebaceous cyst of breast Axillary adenopathy Radial scar of right breast Mixed hyperlipidemia Diabetes type 2, controlled Brain bleed History of kidney stones Migraine Breast lump Arthritis Seasonal allergic rhinitis Surgical History Hx of colonoscopy History of total knee replacement (TKR) History of excision of epidermal inclusion cyst S/P lumpectomy, right breast S/P breast biopsy, left Hx of knee surgery Hx of hand surgery Hx of tubal ligation History of Family History Mother Breast cancer Arthritis Father Arthritis Diabetes Hypertension High cholesterol Lung cancer Brother Asthma Prostate cancer Sister Sudden cardiac Social History household members: spouse current occupational status: retired Smoking Status: Never smoker second hand exposure: No alcohol intake: current alcohol intake frequency: holidays/special occasions only substance use type: does not use what type of physical activity do you participate in: walking frequency: 1-2 times per week seatbelt use: always ROS Constitutional Constitutional: Reports systems reviewed and no addt'l complaints, except as documented Eyes Eyes: Reports systems reviewed and no addt'l complaints, except as documented ENT HEENT: Reports systems reviewed and no addt'l complaints, except as documented Cardiovascular Cardiovascular: Reports systems reviewed and no addt'l complaints, except as documented Respiratory/Chest Respiratory/Chest: Reports systems reviewed and no addt'l complaints, except as documented Gastrointestinal Gastrointestinal: Reports systems reviewed and no addt'l complaints, except as documented Genitourinary Genitourinary: Reports systems reviewed and no addt'l complaints, except as documented Musculoskeletal Musculoskeletal: Reports systems reviewed and no addt'l complaints, except as documented Integumentary Integumentary: Reports systems reviewed and no addt'l complaints, except as documented Neurologic Neurologic: Reports systems reviewed and no addt'l complaints, except as documented Psychiatric Psychiatric: Reports systems reviewed and no addt'l complaints, except as documented Endocrine Endocrinology: Reports systems reviewed and no addt'l complaints, except as documented Hematologic/Lymphatic Hematologic/Lymphatic: Reports systems reviewed and no addt'l complaints, exceptas documented Allergic/Immunologic Allergic/Immunologic: Reports systems reviewed and no addt'l complaints, except as documented Intake Vital Signs 09/15/24 13:24 11/17/24 12:47 Height 5 ft 2 in 5 ft 2 in Weight: 103.646 kg BMI 41.8 BP 130/83 H Blood Pressure Location Rt radial Position Sitting Respiration 18 Pulse 87 Pulse Source Monitor Temp 98.5 F Temperature Source Temporal Artery Pulse Oximetry (%) 97 Oxygen Delivery Method room air Intake Is patient in pain?: No Allergies adhesive Allergy (Mild, Verified 11/17/24 12:53) Hives meperidine (From Demerol) Adverse Reaction (Unknown, Verified 11/17/24 12:53) Vomiting Medications ?Medication ?Instructions ?Recorded ?Confirmed ?Type psyllium husk 0.4 gram capsule 0.4 g PO DAILY 10/21/23 11/17/24 History (Metamucil) FreeStyle Azucena 3 Sensor #2 ea 01/20/24 11/17/24 Rx (blood-glucose sensor) insulin glargine 100 unit/mL (3 18 unit (0.18 mL) subc ut QHS #15 mL 01/20/24 11/17/24 Rx mL) subcutaneous pen insulin lispro 100 unit/mL 35 unit (0.35 mL) subcut TI D #96 mL 01/20/24 11/17/24 Rx subcutaneous pen (Humalog KwikPen (U-100) Insulin) metoprolol succinate 50 mg 50 mg PO DAILY #90 tabs 08/0211/17/24 Rx tablet,extended release 24 hr pen needle, diabetic 32 gauge x #400 ea 05/11/2411/17 Rx / (BD Ultra-Fine Ale Pen Needle) atorvastatin 10 mg tablet 10 mg PO DAILY #90 tabs 0606/0211/17/24 Rx biotin 1 mg capsule 1 mg PO QDAY 09/08/24 History cholecalciferol (vitamin D3) 25 25 mcg PO QDAY 5 11/17/24 History mcg (1,000 unit) capsule empagliflozin 25 mg tablet 25 mg PO QDAY #90 tabs 04/0411/17/24 Rx (Jardiance) levocetirizine 5 mg tablet (Xyzal) 5 mg PO QDAY 11/17/24 History mecobalamin (vitamin B12) 1,000 1,000 mcg PO QDAY 04/0411/17/24 History mcg chewable tablet polysaccharide iron complex 150 mg 150 mg PO ONCE #90 caps 09/15/24 11/17/24 Rx iron capsule (Ferrex) amlodipine 10 mg tablet 10 mg PO DAILY #90 tabs 09/0911/17/24 Rx paroxetine HCl 10 mg tablet 10 mg PO DAILY #90 tabs 11/17/24 Rx Have you fallen in the past year?: No Exam Physical Exam Const alert, oriented x3 and no apparent distress Coding Level of Care Code Off vis,est,level 3 Exam Problem Focused Diagnoses Iron deficiency anemia, unspecified iron deficiency anemia type D50.9 Anemia type: iron deficiency Iron deficiency anemia type: unspecified iron deficiency Assessment and Plan Assessment and Plan (1) Anemia: Status: Chronic Qualifiers: Anemia type: iron deficiency Iron deficiency anemia type: unspecified iron deficiency Qualified Code(s): D50.9 - Iron deficiency anemia, unspecified Comment: Has taken Ferrex x 2 months, Iron profile is still low, HGB is 10.2. Discussed IV vs Oral replacement, she wants to Oral for another month. Plan: To continue Oral Iron-Ferrex 150mg daily. To check Comprehensive Celiac Profile. Orders: Orders Celiac AB,Comprehensive Today D50.9 - Iron deficiency anemia, unspecified Plan Details Follow Up: 4 Weeks Clinical Quality Measures Falls Risk Screening/Assistive Devices Have you fallen in the past year?: No 11/17/24 1343 <Electronically signed by Anselmo Martin> Date _ Anselmo Gallagher MD Cosigner Signature: Date (if applicable) CC: Dr. Maricarmen Tavares MD ~ [facility] Work Phone: 1(457) 424-616407-01-2025 Evaluation note* Diagnosis Onset Date Resolution Status Admit Date Diabetes chronic September 08, 2024 1:02pm Hypertension chronic September 08 1:02pm Iron deficiency anemia chronic Ju ly 2024 1:02pm Mixed hyperlipidemia chronic September 08, 2024 1:02pm Obesity chronic September 08, 2024 1:02pm Anemia chronic September 15, 2024 12:18pm High serum ferritin chronic September 15, 2024 12:18pm Anemia chronic November 04, 025 9:58am Anxiety and depression chronic Au sonny 2024 9:58am Chronic cough chronic October 9:58am High serum ferritin chronic Augus t 2024 9:58am Hypertension chronic November 04, 2024 9:58am Insulin dependent diabetes mellitus chronic November 04 9:58am Mixed hyperlipidemia chronic Augu st 2024 9:58am Anemia chronic November 17, 2024 12:37pm Iron refractory iron deficiency anemia acute December 15, 2 025 2:39pm Anemia chronic December 15, 2 025 2:39pm High serum ferritin chronic Octob 2024 2:39pm [facility] Work Phone: 1(147) 690-937405-28-2025 Evaluation note* Diagnosis Onset Date Resolution Status Admit Date Anxiety and depression chronic Ma y 2024 10:06am Chronic cough chronic August 05, 2 025 10:06am Hypertension chronic August 05 10:06am Insulin dependent diabetes mellitus chronic August 05, 2024 1 0:06am Mixed hyperlipidemia chronic August 05, 2024 10:06am Diabetes chronic September 08, 2024 1:02pm Hypertension chronic September 08 1:02pm Iron deficiency anemia chronic Ju ly 2024 1:02pm Mixed hyperlipidemia chronic September 08, 2024 1:02pm Obesity chronic September 08, 2024 1:02pm [facility] Work Phone: 1(854) 500-967505-28-2025 Evaluation note* Diagnosis Onset Date Resolution Status Admit Date Anxiety and depression chronic Ma y 2024 10:06am Chronic cough chronic August 05, 2 025 10:06am Hypertension chronic August 05, 10:06am Insulin dependent diabetes mellitus chronic August 05, 2024 1 0:06am Mixed hyperlipidemia chronic August 05, 2024 10:06am Diabetes chronic September 08, 2024 1:02pm Hypertension chronic September 08 1:02pm Iron deficiency anemia chronic Ju ly 2024 1:02pm Mixed hyperlipidemia chronic September 08, 2024 1:02pm Obesity chronic September 08, 2024 1:02pm Anemia chronic September 15, 2024 12:18pm [facility] Work Phone: 1(163) 925-919705-28-2025 Evaluation note* Diagnosis Onset Date Resolution Status Admit Date Anxiety and depression chronic Ma y 2024 10:06am Chronic cough chronic August 05, 2 025 10:06am Hypertension chronic August 05 10:06am Insulin dependent diabetes mellitus chronic August 05, 2024 1 0:06am Mixed hyperlipidemia chronic August 05, 2024 10:06am Diabetes chronic September 08, 2024 1:02pm Hypertension chronic September 08 1:02pm Iron deficiency anemia chronic Ju ly 2024 1:02pm Mixed hyperlipidemia chronic September 08, 2024 1:02pm Obesity chronic September 08, 2024 1:02pm Anemia chronic September 15, 2024 12:18pm High serum ferritin chronic September 15, 2024 12:18pm [facility] Work Phone: 1(854) 850-565605-28-2025 Evaluation note* Diagnosis Onset Date Resolution Status Admit Date Anxiety and depression chronic Ma y 2024 10:06am Chronic cough chronic August 05, 2 025 10:06am Hypertension chronic August 05 10:06am Insulin dependent diabetes mellitus chronic August 05, 2024 1 0:06am Mixed hyperlipidemia chronic August 05, 2024 10:06am Diabetes chronic September 08, 2024 1:02pm Hypertension chronic September 08 1:02pm Iron deficiency anemia chronic Ju ly 2024 1:02pm Mixed hyperlipidemia chronic September 08, 2024 1:02pm Obesity chronic September 08, 2024 1:02pm Anemia chronic September 15, 2024 12:18pm High serum ferritin chronic September 15, 2024 12:18pm Anemia chronic November 04, 2 025 9:58am Anxiety and depression chronic Au sonny 2024 9:58am Chronic cough chronic October 9:58am High serum ferritin chronic Augus t 2024 9:58am Hypertension chronic November 04, 2024 9:58am Insulin dependent diabetes mellitus chronic November 04 9:58am Mixed hyperlipidemia chronic Augu st 2024 9:58am Anemia chronic November 17, 2024 12:37pm [facility] Work Phone: 1(318) 217-262603-03-2025 Evaluation note* Diagnosis Onset Date Resolution Status Admit Date Diabetes chronic May 11 1:16pm Hypertension chronic May 11 025 1:16pm Mixed hyperlipidemia chronic Jesse h 2024 1:16pm Obesity chronic May 11 1:16pm Anxiety and depression chronic Ma 2024 10:06am Chronic cough chronic August 05, 025 10:06am Hypertension chronic August 05 10:06am Insulin dependent diabetes mellitus chronic August 05, 2024 1 0:06am Mixed hyperlipidemia chronic August 05, 2024 10:06am Diabetes chronic September 08, 2024 1:02pm Hypertension chronic September 08 1:02pm Mixed hyperlipidemia chronic September 08, 2024 1:02pm Obesity chronic September 08, 2024 1:02pm [facility] Work Phone: 1(174) 466-897002-05-2025 Evaluation note* Diagnosis Onset Date Resolution Status Admit Date Anxiety and depression chronic Fe 2024 8:56am Chronic cough chronic April 8:56am Hypertension chronic April 8:56am Mixed hyperlipidemia chronic Febr [email or web address] 8:56am Diabetes chronic May 11 1:16pm Hypertension chronic May 11 025 1:16pm Mixed hyperlipidemia chronic Jesse h 2024 1:16pm Obesity chronic May 11 1:16pm [facility] Work Phone: 1([phone]) 764-143702-05-2025 Evaluation note* Diagnosis Onset Date Resolution Status Admit Date Anxiety and depression chronic Fe bruary 5th, 2025 8:56am Chronic cough chronic April 8:56am Hypertension chronic April 8:56am Mixed hyperlipidemia chronic Febr [email or web address] 8:56am Diabetes chronic May 11 1:16pm Hypertension chronic May 11, 2 025 1:16pm Mixed hyperlipidemia chronic Jesse 2024 1:16pm Obesity chronic May 11 1:16pm Anxiety and depression chronic Ma y 2024 10:06am Chronic cough chronic August 05, 2 025 10:06am Hypertension chronic August 05 10:06am Insulin dependent diabetes mellitus chronic August 05, 2024 1 0:06am Mixed hyperlipidemia chronic August 05, 2024 10:06am [facility] Work Phone: 1([phone]) 401-741204-10-2024 NotePap Smear Specimen AdequacyApril 2023 11:59pmComment.Satisfactory for evaluation. Endocervical and/or squamous metaplasticcells (endocervical component)are present.[facility] A#[id number] [facility] District Memorial HospitalComment on above:Satisfactory for evaluation. Endocervical and/or squamous metaplasticcells (endocervical component)are present.02-01-2021 Evaluation + Plan note Future Scheduled Tests Laboratory* Pathology Wedding Coordinator Request 02/01/21 Radiology* US Breast Right Complete 05/06/20 * MA Mammo Diagnostic Right w/ Chris 05/16/20 * MA Mammo Screening Bilateral w/ Chris 02/01/21 [facility] 03-12-2021 NoteHNO ID: [id number] Author: Monica Pérez (Tech) Service: ? Author Type: Is Analyst Type: Progress Notes Filed: 05/20/2020 2:27 PM [...] out verification includes:Audible time-out documented: Yes. Time: 0125 Two Patient Identifiers Correct side and site [...] of Time Out: N/A Sign Out [facility] NoteHNO ID: [id number] Author: Monica Pérez (Tech) Service: ? Author Type: Is Analyst Type: Progress Notes Filed: 05/20/2020 2:23 PM [...] BY: Monica Pérez May 20, 2020 2:22 [facility]03-12-2021 NoteHNO ID: [id number] Author: Monica Pérez (Tech) Service: ? Author Type: Is Analyst Type: Progress Notes Filed: 05/20/2020 2:25 PM [...] follow-up SUPPLEMENTAL MATERIAL: Homegoing instructions REFERRAL (RECOMMENDATION): [facility]21 NoteHNO ID: [id number] Author: Carmelina Monroe Service: ? Author Type: Physician Type: Progress Notes Filed: 05/05/2020 9:23 AM Note Text: Reviewed mammogram from 05/04/[address] Ryder. Agree with RIGHT tomosynthesis guided biopsy for distortion seen best on screening tomosynthesis views. Chika Hill RN will schedule the patient.[facility]02-24-2021 NoteHNO ID: [id number] Author: Demi Whyte Service: ? Author Type: Grinder Set Up Operator Thread Tool Type: Progress Notes Filed: 05/04/2020 2:41 PM [...] PERIPHERAL IV DATA: Not applicable SIGNED BY: DEMI WHYTE RDMS RVBandar May 04, 2020 2:41 [facility] Diagnosis Onset Date Resolution Status Diabetes chronic Mixed hyperlipidemia chronic Obesity chronic Meralgia paresthetica of left side acute Sacroiliitis acute Hypertension chronic Mixed hyperlipidemia chronic Type 2 diabetes mellitus [facility] Work Phone: Evaluation note* Diagnosis Onset Date Resolution Status Diabetes chronic Mixed hyperlipidemia chronic Obesity chronic Meralgia paresthetica of left side acute Sacroiliitis acute Hypertension chronic Mixed hyperlipidemia chronic Type 2 diabetes mellitus chr onic Obesity acute Diabetes chronic Hypertension chronic Mixed hyperlipidemia [facility] Work Phone: Evaluation note* Diagnosis Onset Date Resolution Status Meralgia paresthetica of left side acute Sacroiliitis acute Hypertension chronic Mixed hyperlipidemia chronic Type 2 diabetes mellitus chr onic Obesity acute Diabetes chronic Hypertension chronic Mixed hyperlipidemia chronic Health care maintenance acut e Sacroiliitis acute Anxiety and depression chron ic Hypertension chronic Osteoarthritis of knee chron ic Type 2 diabetes mellitus chr onic Hypertension chronic Osteoarthritis of knee chron ic Type 2 diabetes mellitus [facility] on Preop exam for internal medicine noneactive [facility] Work Phone: Evaluation note* Diagnosis Onset Date Resolution Status Health care maintenance acut e Sacroiliitis acute Anxiety and depression chron ic Hypertension chronic Osteoarthritis of knee chron ic Type 2 diabetes mellitus chr onic Hypertension chronic Osteoarthritis of knee chron ic Type 2 diabetes mellitus [facility] onic Preop exam for internal medicine noneactive Diabetes chronic Hypertension chronic Mixed hyperlipidemia chronic Obesity chronic Cellulitis noneactive [facility] Work Phone: Evaluation note* Diagnosis Onset Date Resolution Status Health care maintenance acut e Sacroiliitis acute Anxiety and depression chron ic Hypertension chronic Osteoarthritis of knee chron ic Type 2 diabetes mellitus chr onic Hypertension chronic Osteoarthritis of knee chron ic Type 2 diabetes mellitus [facility] onic Preop exam for internal medicine noneactive Diabetes chronic Hypertension chronic Mixed hyperlipidemia chronic Obesity chronic Cellulitis noneactive Preoperative evaluation to r ule out surgical contraindication acute Hypertension chronic Osteoarthritis of knee chron ic Type 2 diabetes mellitus [facility] Work Phone: Evaluation note* Diagnosis Onset Date Resolution Status Diabetes chronic Hypertension chronic Mixed hyperlipidemia chronic Obesity chronic Anxiety and depression chron ic Hypertension chronic Type 2 diabetes mellitus [facility] onic Anxiety and depression chron ic Hypertension chronic Mixed hyperlipidemia chronic Type 2 diabetes mellitus [facility] Work Phone: Evaluation note* Diagnosis Onset Date Resolution Status Anxiety and depression chron ic Hypertension chronic Mixed hyperlipidemia chronic Type 2 diabetes mellitus chr onic Diabetes chronic Hypertension chronic Mixed hyperlipidemia chronic Obesity chronic FH: sudden cardiac (SCD) acute Chronic cough chronic Hypertension chronic Mixed hyperlipidemia chronic [facility] Work Phone: Evaluation note* Diagnosis Onset Date Resolution Status Anxiety and depression chron ic Hypertension chronic Mixed hyperlipidemia chronic Hypertension chronic Mixed hyperlipidemia chronic FH: sudden cardiac (SCD) acute Chronic cough chronic Hypertension chronic Mixed hyperlipidemia chronic [facility] Work Phone: Evaluation note* Diagnosis Onset Date Resolution Status Hypertension chronic Mixed hyperlipidemia chronic FH: sudden cardiac (SCD) acute Chronic cough chronic Hypertension chronic Mixed hyperlipidemia chronic Diabetes mellitus type 2, co ntrolled, without complications chronic Hypertension chronic Obesity chronic FH: sudden cardiac (SCD) acute Hypertension chronic Mixed hyperlipidemia chronic Encounter for screening breast examination acute Screening for colon cancer n oneactive [id number] noneactive Yeast dermatitis noneactive [facility] Work Phone: Evaluation note* Diagnosis Onset Date Resolution Status FH: sudden cardiac (SCD) acute Chronic cough chronic Hypertension chronic Mixed hyperlipidemia chronic Diabetes mellitus type 2, co ntrolled, without complications chronic Hypertension chronic Obesity chronic FH: sudden cardiac (SCD) acute Hypertension chronic Mixed hyperlipidemia chronic Encounter for screening breast examination acute Screening for colon cancer n oneactive [id number] noneactive Yeast dermatitis noneactive [facility] Work Phone: Hospital course Narrative No data available for this section [facility] Hospital Discharge instructions No data available for this section [facility] Hospital Discharge instructionsAmbulatory Orders* Prior Authorization Referral - ONC/HEM Location: None Selected [facility] Work Phone: Progress note Author Anselmo Gallagher [facility] Note Date/Time December 15, 2024 3: 30pm [facility] [address] [place] [address] OFFICE VISIT Date of Service: 12/15/24 1451 MR#: [id number] Acct: [id number] Name: KIRILL ALMAZAN Rep #: [id number] : 1955 From: Anselmo Gallagher MD Age/Sex: 69/F [place] [facility] [place] Status: Signed HPI Subjective Date of Service 12/15/24 Chief Complaint F/U CHARLIE History of Present Illness 69-year-old woman was found to have iron deficiency anemia. She started iron rich food for 2 months but hemoglobin remained stable so referred for further evaluation. She has hemorrhoids which has not been bleeding for a long time. She had not taken oral iron pills so elected to do oral Iron. Has taken Iron orally for 2-3 months. Comes for follow up. Feels tired. [facility] Medical History Iron deficiency anemia Anemia Chronic cough Flu vaccine need Cardiology follow-up encounter History of echocardiogram History of stress test Diabetes FH: sudden cardiac (SCD) Retinal hemorrhage, right eye Hyperopia of both eyes with regular astigmatism and presbyopia Epiretinal membrane (ERM) of left eye Combined forms of age-related cataract, bilateral Venous insufficiency of both lower extremities Insulin dependent diabetes mellitus Kidney stones Injury of head and neck Leg cramps Anxiety and depression Osteoarthritis of knee Meralgia paresthetica of left side Sacroiliitis Sebaceous cyst of breast Axillary adenopathy Radial scar of right breast Mixed hyperlipidemia Diabetes type 2, controlled Brain bleed History of kidney stones Migraine Breast lump Arthritis Seasonal allergic rhinitis Surgical History Hx of colonoscopy History of total knee replacement (TKR) History of excision of epidermal inclusion cyst S/P lumpectomy, right breast S/P breast biopsy, left Hx of knee surgery Hx of hand surgery Hx of tubal ligation History of Family History Mother Breast cancer Arthritis Father Arthritis Diabetes Hypertension High cholesterol Lung cancer Brother Asthma Prostate cancer Sister Sudden cardiac Social History household members: spouse current occupational status: retired Smoking Status: Never smoker second hand exposure: No alcohol intake: current alcohol intake frequency: holidays/special occasions only substance use type: does not use what type of physical activity do you participate in: walking frequency: 1-2 times per week seatbelt use: always Intake Vital Signs 11/17/24 12:47 12/15/24 14:52 Height 5 ft 2 in 5 ft 2 in Weight: 103.646 kg 101.86 kg BMI 41.8 41.1 BP 130/83 H 119/72 Blood Pressure Location Rt radial Lt brachial Position Sitting Sitting Respiration 18 18 Pulse 87 83 Pulse Source Monitor Monitor Temp 98.5 F 98.2 F Temperature Source Temporal Artery Temporal Artery Pulse Oximetry (%) 97 94 Oxygen Delivery Method room air room air Intake Is patient in pain?: No Allergies adhesive Allergy (Mild, Verified 12/15/24 15:00) Hives meperidine (From Demerol) Adverse Reaction (Unknown, Verified 12/15/24 15:00) Vomiting Medications ?Medication ?Instructions ?Recorded ?Confirmed ?Type psyllium husk 0.4 gram capsule 0.4 g PO DAILY 10/21/23 12/15/24 History (Metamucil) FreeStyle Azucena 3 Sensor #2 ea 01/20/24 12/15/24 Rx (blood-glucose sensor) insulin glargine 100 unit/mL (3 18 unit (0.18 mL) subc ut QHS #15 mL 01/20/24 12/15/24 Rx mL) subcutaneous pen insulin lispro 100 unit/mL 35 unit (0.35 mL) subcut TI D #96 mL 01/20/24 12/15/24 Rx subcutaneous pen (Humalog KwikPen (U-100) Insulin) metoprolol succinate 50 mg 50 mg PO DAILY #90 tabs 08/0212/15/24 Rx tablet,extended release 24 hr pen needle, diabetic 32 gauge x #400 ea 05/11/2412/15 Rx (BD Ultra-Fine Ale Pen Needle) atorvastatin 10 mg tablet 10 mg PO DAILY #90 tabs 06/0212/15/24 Rx biotin 1 mg capsule 1 mg PO QDAY 09/08/24 History cholecalciferol (vitamin D3) 25 25 mcg PO QDAY 5 12/15/24 History mcg (1,000 unit) capsule empagliflozin 25 mg tablet 25 mg PO QDAY #90 tabs 04/0412/15/24 Rx (Jardiance) levocetirizine 5 mg tablet (Xyzal) 5 mg PO QDAY 12/15/24 History mecobalamin (vitamin B12) 1,000 1,000 mcg PO QDAY 04/0412/15/24 History mcg chewable tablet polysaccharide iron complex 150 mg 150 mg PO ONCE #90 caps 09/15/24 12/15/24 Rx iron capsule (Ferrex) amlodipine 10 mg tablet 10 mg PO DAILY #90 tabs 09/0912/15/24 Rx paroxetine HCl 10 mg tablet 10 mg PO DAILY #90 tabs 12/15/24 Rx Have you fallen in the past year?: No Central Venous Access Central Venous Access: No Microbiology 08/10/24 Unknown Stool Stool Occult Blood (ARIELLA) - Final 08/10/24 10:32 Stool Stool Occult Blood (ARIELLA) - Final Laboratory Tests 08/05/24 09/09/24 11/12/24 10:43 10:07 09:34 WBC 10.3 10.1 9.5 Hgb 10.3 L 10.1 L 10.2 L Hct 34.3 L 33.7 L 33.2 L Plt Count 489 H 492 H 507 H Absolute Neuts (auto) 6.8 6.6 6.7 Absolute Lymphs (auto) 2.45 2.41 1.93 ESR 73 H Retic Count 1.66 H Sodium 139 139 Potassium 3.9 3.9 Chloride 99 102 Carbon Dioxide 27.2 26.2 Anion Gap 12 BUN 16 11 Creatinine 0.86 0.93 Glucose 139 H 252 H Calcium 9.7 9.7 Phosphorus 2.3 L Iron 23 L 22 L Magnesium 2.1 TIBC 206 L 176 L Iron Saturation 11.0 L 12.5 L Unsaturated IBC 183 L 154 L Ferritin 826 H Total Bilirubin 0.33 AST 7 ALT 5 Alkaline Phosphatase 74 Lactate Dehydrogenase 157 Total Protein 7.5 Albumin 3.5 Globulin 4.0 Albumin/Globulin Ratio 0.9 Vitamin B12 386 RBC Folate Hemolysate 491.0 RBC Folate 1466 Hematocrit 33.5 L 12/14/24 10:31 WBC 8.7 Hgb 10.6 L Hct 36.0 L Plt Count 469 H Absolute Neuts (auto) Absolute Lymphs (auto) ESR Retic Count Sodium Potassium Chloride Carbon Dioxide Anion Gap BUN Creatinine 0.91 Glucose Calcium Phosphorus Iron 23 L Magnesium TIBC 182 L Iron Saturation 12.6 L Unsaturated IBC Ferritin 874 H Total Bilirubin AST ALT Alkaline Phosphatase Lactate Dehydrogenase Total Protein Albumin Globulin Albumin/Globulin Ratio Vitamin B12 RBC Folate Hemolysate RBC Folate Hematocrit Exam Physical Exam Const alert, oriented x3 and no apparent distress Coding Level of Care Code Off vis,est,level 3 Exam Problem Focused Diagnoses Iron deficiency anemia, unspecified iron deficiency anemia type D50.9 Anemia type: iron deficiency Iron deficiency anemia type: unspecified iron deficiency Iron refractory iron deficiency anemia D50.8 High serum ferritin R79.89 Assessment and Plan Assessment and Plan (1) Anemia: Status: Chronic Qualifiers: Anemia type: iron deficiency Iron deficiency anemia type: unspecified iron deficiency Qualified Code(s): D50.9 - Iron deficiency anemia, unspecified Comment: Has taken Ferrex x 3 months, Iron profile is still low, HGB is 10.6. Discussed IV vs Oral replacement, she wants to IV Iron. Plan: To obtain Pre-authorization and do IV Iron. (2) Iron refractory iron deficiency anemia: Status: Acute Plan: To do IV Iron replacement. (3) High serum ferritin: Status: Chronic Comment: R/O Liver disease. Plan: To obtain Abdominal US and Liver elastography. Check GGTP Plan Details Follow Up: 8 Weeks Clinical Quality Measures Falls Risk Screening/Assistive Devices Have you fallen in the past year?: No 12/15/24 1530 <Electronically signed by Anselmo Martin> Date _ Anselmo Gallagher MD Cosigner Signature: Date (if applicable) CC: ~ [facility] Work Phone: Reason for referral (narrative)No reason for referral information availableSan [facility]ente [facility] Work Phone: Summary Purpose Family History No Family History Records Found Relationship Condition Age at Onset Recorded Date/T reese mother Malignant neoplasm of breast Unknown Arthritis Unknown father Arthritis Unknown Diabetes mellitus Unknown Hypertension Unknown High blood cholesterol Unknown Malignant neoplasm of lung Unknown brother Asthma Unknown Relationship Condition Age at Onset Recorded Date/T reese mother Malignant neoplasm of breast Unknown Arthritis Unknown father Arthritis Unknown Diabetes mellitus Unknown Hypertension Unknown High blood cholesterol Unknown Malignant neoplasm of lung Unknown brother Asthma Unknown sister Sudden cardiac Unknown Relationship Condition Age at Onset Recorded Date/T reese mother Malignant neoplasm of breast Unknown Arthritis Unknown father Arthritis Unknown Diabetes mellitus Unknown Hypertension Unknown High blood cholesterol Unknown Malignant neoplasm of lung Unknown brother Asthma Unknown Malignant neoplasm of prostate Unknown sister Sudden cardiac Unknown Advance Directives No Advanced Directives Records Found Advance Directive Response Recorded Date/ Time Living Will Yes June 22, 2020 11:05am Power of Sound Controller Yes June 22 11:05am Advance Directive Response Recorded Date/ Time Living Will Yes February 16 3:01pm Power of Sound Controller Yes February 16, 2022 3:01pm Advance Directive Response Recorded Date/ Time Name of Medical Power of Sound Controller LOUISA ALMAZAN February 16, 2022 3:01pm Living Will Yes February 16 3:01pm Power of Sound Controller Yes February 16, 2022 3:01pm Advance Directive Response Recorded Date/ Time Living Will Yes February 16 4:01pm Power of Sound Controller Yes February 16, 2022 4:01pm Advance Directive Response Recorded Date/ Time Living Will Yes October 22 12:45pm Do you have a Healthcare Power of Sound Controller? Yes October 23, 2023 12:45pm Chief Complaint and Reason for Visit Chief Complaint 3 M FU HEAD HOST/HOSTESS. EST. CARE - NPP SENT Reason for Visit Diabetes Mixed hyperlipidemia Obesity Meralgia paresthetica of left side Sacroiliitis Hypertension Mixed hyperlipidemia Type 2 diabetes mellitus Chief Complaint 3 M FU HEAD HOST/HOSTESS. EST. CARE - NPP SENT 3 M FU MERALGIA PARASTHETICA LT SIDE,RX HERE Reason for Visit Diabetes Mixed hyperlipidemia Obesity Meralgia paresthetica of left side Sacroiliitis Hypertension Mixed hyperlipidemia Type 2 diabetes mellitus Obesity Diabetes Hypertension Mixed hyperlipidemia Chief Complaint HEAD HOST/HOSTESS. EST. CARE - NPP SENT 3 M FU MERALGIA PARASTHETICA LT SIDE,RX HERE ANNUAL, PAP SURGERY CLEARANCE RT KNEE *XANDER PROTOCOL* Reason for Visit Meralgia paresthetic a of left side Sacroiliitis Hypertension Mixed hyperlipidemia Type 2 diabetes mellitus Obesity Diabetes Hypertension Mixed hyperlipidemia Health care maintenance Sacroiliitis Anxiety and depression Hypertension Osteoarthritis of knee Type 2 diabetes mellitus Hypertension Osteoarthritis of knee Type 2 diabetes mellitus Preop exam for internal medicine Chief Complaint NP. EST. YOUNGER - NPP SENT 3 M FU MERALGIA PARASTHETICA LT SIDE,RX HERE ANNUAL, PAP SURGERY CLEARANCE RT KNEE *XANDER PROTOCOL* RT TOTAL KNEE W XANDER Reason for Visit Meralgia paresthetic a of left side Sacroiliitis Hypertension Mixed hyperlipidemia Type 2 diabetes mellitus Obesity Diabetes Hypertension Mixed hyperlipidemia Health care maintenance Sacroiliitis Anxiety and depression Hypertension Osteoarthritis of knee Type 2 diabetes mellitus Hypertension Osteoarthritis of knee Type 2 diabetes mellitus Preop exam for internal medicine Chief Complaint ANNUAL, PAP SURGERY CLEARANCE RT KNEE *XANDER PROTOCOL* PREOP RT TOTAL KNEE W XANDER 3 M FU SCREENING POSSIBLE INFECTION IN CALF Reason for Visit Health care maintena nce Sacroiliitis Anxiety and depression Hypertension Osteoarthritis of knee Type 2 diabetes mellitus Hypertension Osteoarthritis of knee Type 2 diabetes mellitus Preop exam for internal medicine Diabetes Hypertension Mixed hyperlipidemia Obesity Cellulitis Chief Complaint ANNUAL, PAP SURGERY CLEARANCE RT KNEE *XANDER PROTOCOL* PREOP RT TOTAL KNEE W XANDER 3 M FU SCREENING POSSIBLE INFECTION IN CALF 3 M FU - FU for Cellulitis Unilateral primary osteoarthritis, left knee Reason for Visit Health care [facility] nce Sacroiliitis Anxiety and depression Hypertension Osteoarthritis of knee Type 2 diabetes mellitus Hypertension Osteoarthritis of knee Type 2 diabetes mellitus Preop exam for internal medicine Diabetes Hypertension Mixed hyperlipidemia Obesity Cellulitis Preoperative evaluation to rule out surgical contraindication Hypertension Osteoarthritis of knee Type 2 diabetes mellitus Chief Complaint 4 M FU 3 M FU 3 M FU Reason for Visit Diabetes Hypertension Mixed hyperlipidemia Obesity Anxiety and depression Hypertension Type 2 diabetes mellitus Anxiety and depression Hypertension Mixed hyperlipidemia Type 2 diabetes mellitus Chief Complaint 3 M FU 4 M FU 3 M FU EORDERS Reason for Visit Anxiety and depressi on Hypertension Mixed hyperlipidemia Type 2 diabetes mellitus Diabetes Hypertension Mixed hyperlipidemia Obesity FH: sudden cardiac (SCD) Chronic cough Hypertension Mixed hyperlipidemia Chief Complaint 3 M FU 4 M FU 3 M FU EORDERS SCREENING Reason for Visit Anxiety and depressi on Hypertension Mixed hyperlipidemia Hypertension Mixed hyperlipidemia FH: sudden cardiac (SCD) Chronic cough Hypertension Mixed hyperlipidemia Chief Complaint 3 M FU 4 M FU 3 M FU EORDERS SCREENING Cough Reason for Visit Anxiety and depressi on Hypertension Mixed hyperlipidemia Hypertension Mixed hyperlipidemia FH: sudden cardiac (SCD) Chronic cough Hypertension Mixed hyperlipidemia Chief Complaint 4 M FU 3 M FU EORDERS SCREENING Cough 3 M FU FAM HX OF SUDDEN CARDIAC (OLEGHE) Annual (EQUIPMENT STERILIZER) (Referral) Reason for Visit Hypertension Mixed hyperlipidemia FH: sudden cardiac (SCD) Chronic cough Hypertension Mixed hyperlipidemia Diabetes mellitus type 2, controlled, without complications Hypertension Obesity FH: sudden cardiac (SCD) Hypertension Mixed hyperlipidemia Encounter for screening breast examination Screening for colon cancer [id number] Yeast dermatitis Chief Complaint 3 M FU EORDERS SCREENING Cough 3 M FU FAM HX OF SUDDEN CARDIAC (OLEGHE) Annual (EQUIPMENT STERILIZER) (Referral) CAD ASHD Reason for Visit FH: sudden cardiac d eath (SCD) Chronic cough Hypertension Mixed hyperlipidemia Diabetes mellitus type 2, controlled, without complications Hypertension Obesity FH: sudden cardiac (SCD) Hypertension Mixed hyperlipidemia Encounter for screening breast examination Screening for colon cancer [id number] Yeast dermatitis Chief Complaint Admit Date 4 M FU April 15, 2024 8 :56am 3 M FU May 11, 2024 1:16 pm 3 M FU August 05, 2024 10:06 am Reason for Visit Admit Date Anxiety and depression April 15 8:56am Chronic cough April 15, 2024 8 :56am Hypertension April 15, 2024 8 :56am Mixed hyperlipidemia April 15, 2024 8:56am Diabetes May 11, 2024 1:16 pm Hypertension May 11, 2024 1:16 pm Mixed hyperlipidemia May 11, 2024 1:1 6pm Obesity May 11, 2024 1:16 pm Chief Complaint Admit Date 4 M FU April 15, 2024 8 :56am 3 M FU May 11, 2024 1:16 pm 3 M FU August 05, 2024 10:06 am EORDER August 10, 2024 10:27 am Reason for Visit Admit Date Anxiety and depression April 15 8:56am Chronic cough April 15, 2024 8 :56am Hypertension April 15, 2024 8 :56am Mixed hyperlipidemia April 15, 2024 8:56am Diabetes May 11, 2024 1:16 pm Hypertension May 11, 2024 1:16 pm Mixed hyperlipidemia May 11, 2024 1:1 6pm Obesity May 11, 2024 1:16 pm Anxiety and depression August 05, 2024 10 :06am Chronic cough August 05, 2024 10:06 am Hypertension August 05, 2024 10:06 am Insulin dependent diabetes mellitus August 05, 2024 10:06am Mixed hyperlipidemia August 05, 2024 10:0 6am Chief Complaint Admit Date 3 M FU May 11, 2024 1:16 pm 3 M FU August 05, 2024 10:06 am EORDER August 10, 2024 10:27 am 4 M FU September 08, 2024 1:02p m Reason for Visit Admit Date Diabetes May 11, 2024 1:16 pm Hypertension May 11, 2024 1:16 pm Mixed hyperlipidemia May 11, 2024 1:1 6pm Obesity May 11, 2024 1:16 pm Anxiety and depression August 05, 2024 10 :06am Chronic cough August 05, 2024 10:06 am Hypertension August 05, 2024 10:06 am Insulin dependent diabetes mellitus August 05, 2024 10:06am Mixed hyperlipidemia August 05, 2024 10:0 6am Diabetes September 08, 2024 1:02p m Hypertension September 08, 2024 1:02p m Mixed hyperlipidemia September 08, 2024 1:02 pm Obesity September 08, 2024 1:02p m Chief Complaint Admit Date 3 M FU August 05, 2024 10:06 am EORDER August 10, 2024 10:27 am 4 M FU September 08, 2024 1:02p m Reason for Visit Admit Date Anxiety and depression August 05, 2024 10 :06am Chronic cough August 05, 2024 10:06 am Hypertension August 05, 2024 10:06 am Insulin dependent diabetes mellitus August 05, 2024 10:06am Mixed hyperlipidemia August 05, 2024 10:0 6am Diabetes September 08, 2024 1:02p m Hypertension September 08, 2024 1:02p m Iron deficiency anemia September 08, 2024 1: 02pm Mixed hyperlipidemia September 08, 2024 1:02 pm Obesity September 08, 2024 1:02p m Chief Complaint Admit Date 3 M FU August 05, 2024 10:06 am EORDER August 10, 2024 10:27 am 4 M FU September 08, 2024 1:02p m Anemia September 15, 2024 12:18 pm 2 MO, LABS PRIOR September 15, 2024 2:19p m Reason for Visit Admit Date Anxiety and depression August 05, 2024 10 :06am Chronic cough August 05, 2024 10:06 am Hypertension August 05, 2024 10:06 am Insulin dependent diabetes mellitus August 05, 2024 10:06am Mixed hyperlipidemia August 05, 2024 10:0 6am Diabetes September 08, 2024 1:02p m Hypertension September 08, 2024 1:02p m Iron deficiency anemia September 08, 2024 1: 02pm Mixed hyperlipidemia September 08, 2024 1:02 pm Obesity September 08, 2024 1:02p m Anemia September 15, 2024 12:18 pm Chief Complaint Admit Date 3 M FU August 05, 2024 10:06 am EORDER August 10, 2024 10:27 am 4 M FU September 08, 2024 1:02p m Anemia September 15, 2024 12:18 pm 2 MO, LABS PRIOR September 15, 2024 2:19p m screening September 25, 2024 12:3 8pm Reason for Visit Admit Date Anxiety and depression August 05, 2024 10 :06am Chronic cough August 05, 2024 10:06 am Hypertension August 05, 2024 10:06 am Insulin dependent diabetes mellitus August 05, 2024 10:06am Mixed hyperlipidemia August 05, 2024 10:0 6am Diabetes September 08, 2024 1:02p m Hypertension September 08, 2024 1:02p m Iron deficiency anemia September 08, 2024 1: 02pm Mixed hyperlipidemia September 08, 2024 1:02 pm Obesity September 08, 2024 1:02p m Anemia September 15, 2024 12:18 pm High serum ferritin September 15, 2024 12:18 pm Chief Complaint Admit Date 3 M FU August 05, 2024 10:06 am EORDER August 10, 2024 10:27 am 4 M FU September 08, 2024 1:02p m Anemia September 15, 2024 12:18 pm 2 MO, LABS PRIOR September 15, 2024 2:19p m screening September 25, 2024 12:3 8pm 3 M FU November 04, 2024 9: 58am Chief Complaint Admit Date 3 M FU August 05, 2024 10:06 am EORDER August 10, 2024 10:27 am 4 M FU September 08, 2024 1:02p m Anemia September 15, 2024 12:18 pm screening September 25, 2024 12:3 8pm 3 M FU November 04, 2024 9: 58am 2 MO, LABS PRIOR November 17, 2024 12:37pm 2 MO, LABS PRIOR November 17, 2024 1:45pm Reason for Visit Admit Date Anxiety and depression August 05, 2024 10 :06am Chronic cough August 05, 2024 10:06 am Hypertension August 05, 2024 10:06 am Insulin dependent diabetes mellitus August 05, 2024 10:06am Mixed hyperlipidemia August 05, 2024 10:0 6am Diabetes September 08, 2024 1:02p m Hypertension September 08, 2024 1:02p m Iron deficiency anemia September 08, 2024 1: 02pm Mixed hyperlipidemia September 08, 2024 1:02 pm Obesity September 08, 2024 1:02p m Anemia September 15, 2024 12:18 pm High serum ferritin September 15, 2024 12:18 pm Anemia November 04, 2024 9: 58am Anxiety and depression November 04, 2024 9:58am Chronic cough November 04, 2024 9: 58am High serum ferritin November 04, 2024 9: 58am Hypertension November 04, 2024 9: 58am Insulin dependent diabetes mellitus Augu 2024 9:58am Mixed hyperlipidemia November 04, 2024 9 :58am Anemia November 17, 2024 12:37pm Chief Complaint Admit Date 4 M FU September 08, 2024 1:02p m Anemia September 15, 2024 12:18 pm screening September 25, 2024 12:3 8pm 3 M FU November 04, 2024 9: 58am 2 MO, LABS PRIOR November 17, 2024 12:37pm 2 MO, LABS PRIOR December 14, 2024 10 :27am 4WKS LABS DAY PRIOR December 15, 2024 2: 39pm Reason for Visit Admit Date Diabetes September 08, 2024 1:02p m Hypertension September 08, 2024 1:02p m Iron deficiency anemia September 08, 2024 1: 02pm Mixed hyperlipidemia September 08, 2024 1:02 pm Obesity September 08, 2024 1:02p m Anemia September 15, 2024 12:18 pm High serum ferritin September 15, 2024 12:18 pm Anemia November 04, 2024 9: 58am Anxiety and depression November 04, 2024 9:58am Chronic cough November 04, 2024 9: 58am High serum ferritin November 04, 2024 9: 58am Hypertension November 04, 2024 9: 58am Insulin dependent diabetes mellitus Augu st 2024 9:58am Mixed hyperlipidemia November 04, 2024 9 :58am Anemia November 17, 2024 12:37pm Iron refractory iron deficiency anemia O ctober 2024 2:39pm Anemia December 15, 2024 2: 39pm High serum ferritin December 15, 2024 2: 39pm Additional Source Comments INFORMATION SOURCE (unrecogn ized section and content) DATE CREATED AUTHOR 02/17/2021 [facility] ([place]) DATE CREATED AUTHOR AUTHOR'S ORGANIZ ATION 04/12/2021 [facility] DATE CREATED AUTHOR AUTHOR'S ORGANIZ ATION 12/22/2024 [facility] Goals (unrecognized section and content) Goals may be documented in a n alternate section Care Teams (unrecognized sec tion and content) Team Status: Active Member Role Status Dates Dr. Pushpa Clark MD Family Provider Active Dr. Maricarmen Tavares MD Primary Care Provider Active Team Status: Inactive Member Role Status Dates Dr. Maricarmen Tavares MD Primary Care Syl nicholson, Attending Provider, Referring Provider Active Team Status: Inactive Member Role Status Dates Dr. Maricarmen Tavares MD Primary Care Provider, Refer ring Provider Active Dr. Steve Metz MD Attending Provider Active Team Status: Inactive Member Role Status Dates Dr. Maricarmen Tavares MD Primary Care Provider, Refer ring Provider Active MICHAEL Gonzalez Attending Provider Active Team Status: Active Member Role Status Dates Dr. Maricarmen Tavares MD Primary Care Provider Active Dr. Adriel Burgos MD Attending Provider Active Dr. Kevin Gonzalez DO Referring Provider Active Team Status: Inactive Member Role Status Dates Dr. Maricarmen Tavares MD Primary Care Provider, Refer ring Provider Active Maximiliano Glover HEAD HOST/HOSTESS, HEAD HOST/HOSTESS-C Attending Provider Active Team Status: Inactive Member Role Status Dates Dr. Maricarmen Tavares MD Primary Care Provider, Atten ding Provider Active Team Status: Inactive Member Role Status Dates Dr. Maricarmen Tavares MD Primary Care Provider Active Dr. Kevin Gonzalez DO Attending Provider, Referring Provider Active Team Status: Inactive Member Role Status Dates Dr. Maricarmen Tavares MD Primary Care Provider Active Dr. Kevin Gonzalez DO Attending Provider Active Team Status: Active Member Role Status Dates Dr. Maricarmen Tavares MD Primary Care Provider Active Dr. Kevin Gonzalez DO Attending Provider, Referring Provider Active Team Status: Inactive Member Role Status Dates Dr. Maricarmen Tavares MD Primary Care Provider, Refer ring Provider Active Dr. Adriel Burgos MD Attending Provider Active Team Status: Inactive Member Role Status Dates Dr. Maricarmen Tavares MD Primary Care Provider, Refer ring Provider Active AMELIA Cardona Attending Provider Active Team Status: Inactive Member Role Status Dates Dr. Maricarmen Tavares MD Primary Care Provider Active AMELIA Cardona Attending Provider, Referring Pr ovider Active Team Status: Active Member Role Status Dates Dr. Maricarmen Tavares MD Primary Care Provider Active Dr. Adriel Burgos MD Attending Provider Active Team Status: Inactive Member Role Status Dates Dr. Maricarmen Tavares MD Primary Care Provider Active Dr. Adriel Burgos MD Attending Provider, Referring Pro vider Active Team Status: Active Member Role Status Dates Dr. Maricarmen Tavares MD Primary Care Provider Active Team Status: Inactive Member Role Status Dates Dr. Maricarmen Tavares MD Primary Care Provider Active Start: April 15, 2024 End: April 15, 2024 Dr. Maricarmen Tavares MD Attending Provider Active Start: April 15, 2024 End: April 15, 2024 Dr. Maricarmen Tavares MD Referring Provider Active Start: April 15, 2024 End: April 15, 2024 Team Status: Inactive Member Role Status Dates Dr. Maricarmen Tavares MD Primary Care Provider Active Start: May 11, 2024 End: May 11, 2024 Dr. Maricarmen Tavares MD Referring Provider Active Start: May 11, 2024 End: May 11, 2024 Dr. Steve Metz MD Attending Provider Active Sta rt: May 11, 2024 End: May 11, 2024 Team Status: Inactive Member Role Status Dates Dr. Maricarmen Tavares MD Primary Care Provider Active Start: August 05, 2024 End: August 05, 2024 Dr. Maricarmen Tavares MD Attending Provider Active Start: August 05, 2024 End: August 05, 2024 Dr. Maricarmen Tavares MD Referring Provider Active Start: August 05, 2024 End: August 05, 2024 Team Status: Active Member Role Status Dates Dr. Maricarmen Tavares MD Primary Care Provider Active Start: August 05, 2024 Dr. Maricarmen Tavares MD Attending Provider Active Start: August 05, 2024 Dr. Maricarmen Tavares MD Referring Provider Active Start: August 05, 2024 Team Status: Active Member Role Status Dates Dr. Maricarmen Tavares MD Primary Care Provider Active Start: August 10, 2024 Dr. Maricarmen Tavares MD Attending Provider Active Start: August 10, 2024 Dr. Maricarmen Tavares MD Referring Provider Active Start: August 10, 2024 Team Status: Inactive Member Role Status Dates Dr. Maricarmen Tavares MD Primary Care Provider Active Start: August 10, 2024 End: August 10, 2024 Dr. Maricarmen Tavares MD Attending Provider Active Start: August 10, 2024 End: August 10, 2024 Dr. Maricarmen Tavares MD Referring Provider Active Start: August 10, 2024 End: August 10, 2024 Team Status: Active Member Role/Relationship Status Dates Dr. Maricarmen Tavares MD Primary Care Provider Active Team Status: Inactive Member Role/Relationship Status Dates Dr. Maricarmen Tavares MD Primary Care Provider Active Start: May 11, 2024 End: May 11, 2024 Dr. Maricarmen Tavares MD Referring Provider Active Start: May 11, 2024 End: May 11, 2024 Dr. Steve Metz MD Attending Provider Active Sta rt: May 11, 2024 End: May 11, 2024 Team Status: Inactive Member Role/Relationship Status Dates Dr. Maricarmen Tavares MD Primary Care Provider Active Start: August 05, 2024 End: August 05, 2024 Dr. Maricarmen Tavares MD Attending Provider Active Start: August 05, 2024 End: August 05, 2024 Dr. Maricarmen Tavares MD Referring Provider Active Start: August 05, 2024 End: August 05, 2024 Team Status: Inactive Member Role/Relationship Status Dates Dr. Maricarmen Tavares MD Primary Care Provider Active Start: August 05, 2024 End: August 05, 2024 Dr. Maricarmen Tavares MD Attending Provider Active Start: August 05, 2024 End: August 05, 2024 Dr. Maricarmen Tavares MD Referring Provider Active Start: August 05, 2024 End: August 05, 2024 Team Status: Inactive Member Role/Relationship Status Dates Dr. Maricarmen Tavares MD Primary Care Provider Active Start: August 10, 2024 End: August 10, 2024 Dr. Maricarmen Tavares MD Attending Provider Active Start: August 10, 2024 End: August 10, 2024 Dr. Maricarmen Tavares MD Referring Provider Active Start: August 10, 2024 End: August 10, 2024 Team Status: Inactive Member Role/Relationship Status Dates Dr. Maricarmen Tavares MD Primary Care Provider Active Start: September 08, 2024 End: September 08, 2024 Dr. Maricarmen Tavares MD Referring Provider Active Start: September 08, 2024 End: September 08, 2024 Dr. Steve Metz MD Attending Provider Active Sta rt: September 08, 2024 End: September 08, 2024 Team Status: Inactive Member Role/Relationship Status Dates Dr. Maricarmen Tavares MD Primary Care Provider Active Start: August 05, 2024 End: August 05, 2024 Dr. Maricarmen Tavares MD Attending Provider Active Start: August 05, 2024 End: August 05, 2024 Dr. Maricarmen Tavares MD Referring Provider Active Start: August 05, 2024 End: August 05, 2024 Team Status: Inactive Member Role/Relationship Status Dates Dr. Maricarmen Tavares MD Primary Care Provider Active Start: August 10, 2024 End: August 10, 2024 Dr. Maricarmen Tavares MD Attending Provider Active Start: August 10, 2024 End: August 10, 2024 Dr. Maricarmen Tavares MD Referring Provider Active Start: August 10, 2024 End: August 10, 2024 Team Status: Inactive Member Role/Relationship Status Dates Dr. Maricarmen Tavares MD Primary Care Provider Active Start: September 08, 2024 End: September 08, 2024 Dr. Maricarmen Tavares MD Referring Provider Active Start: September 08, 2024 End: September 08, 2024 Dr. Steve Metz MD Attending Provider Active Sta rt: September 08, 2024 End: September 08, 2024 Team Status: Inactive Member Role/Relationship Status Dates Dr. Maricarmen Tavares MD Primary Care Provider Active Start: September 09, 2024 End: September 09, 2024 Dr. Maricarmen Tavares MD Attending Provider Active Start: September 09, 2024 End: September 09, 2024 Dr. Maricarmen Tavares MD Referring Provider Active Start: September 09, 2024 End: September 09, 2024 Team Status: Inactive Member Role/Relationship Status Dates Dr. Maricarmen Tavares MD Primary Care Provider Active Start: September 15, 2024 End: September 15, 2024 Dr. Maricarmen Tavares MD Referring Provider Active Start: September 15, 2024 End: September 15, 2024 Dr. Anselmo Gallagher MD Attending Provider Active S tart: September 15, 2024 End: September 15, 2024 Team Status: Active Member Role/Relationship Status Dates Dr. Maricarmen Tavares MD Primary Care Provider Active Start: September 15, 2024 Dr. Anselmo Gallagher MD Attending Provider Active S tart: September 15, 2024 Dr. Anselmo Gallagher MD Referring Provider Active S tart: September 15, 2024 Team Status: Inactive Member Role/Relationship Status Dates Dr. Maricarmen Tavares MD Primary Care Provider Active Start: September 25, 2024 End: September 25, 2024 Dr. Stvee Metz MD Attending Provider Active Sta rt: September 25, 2024 End: September 25, 2024 Dr. Steve Metz MD Referring Provider Active Sta rt: September 25, 2024 End: September 25, 2024 Team Status: Inactive Member Role/Relationship Status Dates Dr. Maricaremn Tavares MD Primary Care Provider Active Start: November 04, 2024 End: November 04, 2024 Dr. Maricarmen Tavares MD Attending Provider Active Start: November 04, 2024 End: November 04, 2024 Dr. Maricarmen Tavares MD Referring Provider Active Start: November 04, 2024 End: November 04, 2024 Team Status: Inactive Member Role/Relationship Status Dates Dr. Maricarmen Tavares MD Primary Care Provider Active Start: September 25, 2024 End: September 25, 2024 Dr. Steve Metz MD Attending Provider Active Sta rt: September 25, 2024 End: September 25, 2024 Dr. Steve Metz MD Referring Provider Active Sta rt: September 25, 2024 End: September 25, 2024 Team Status: Inactive Member Role/Relationship Status Dates Dr. Maricarmen Tavares MD Primary Care Provider Active Start: November 04, 2024 End: November 04, 2024 Dr. Maricarmen Tavares MD Attending Provider Active Start: November 04, 2024 End: November 04, 2024 Dr. Maricarmen Tavares MD Referring Provider Active Start: November 04, 2024 End: November 04, 2024 Team Status: Inactive Member Role/Relationship Status Dates Dr. Maricarmen Tavares MD Primary Care Provider Active Start: November 17, 2024 End: November 17, 2024 Dr. Maricarmen Tavares MD Referring Provider Active Start: November 17, 2024 End: November 17, 2024 Dr. Anselmo Gallagher MD Attending Provider Active S tart: November 17, 2024 End: November 17, 2024 Team Status: Active Member Role/Relationship Status Dates Dr. Maricarmen Tavares MD Primary Care Provider Active Start: November 17, 2024 Dr. Anselmo Gallagher MD Attending Provider Active S tart: November 17, 2024 Dr. Anselmo Gallagher MD Referring Provider Active S tart: November 17, 2024 Team Status: Active Member Role/Relationship Status Dates Dr. Maricarmen Tavares MD Primary care physician Activ e Team Status: Inactive Member Role/Relationship Status Dates Dr. Maricarmen Tavares MD Primary care physician Activ e Start: September 08, 2024 End: September 08, 2024 Dr. Maricarmen Tavares MD Referring Provider Active Start: September 08, 2024 End: September 08, 2024 Dr. Steve Metz MD Attending physician Active St art: September 08, 2024 End: September 08, 2024 Team Status: Inactive Member Role/Relationship Status Dates Dr. Maricarmen Tavares MD Primary care physician Activ e Start: September 09, 2024 End: September 09, 2024 Dr. Maricarmen Tavares MD Attending physician Active Start: September 09, 2024 End: September 09, 2024 Dr. Maricarmen Tavares MD Referring Provider Active Start: September 09, 2024 End: September 09, 2024 Team Status: Inactive Member Role/Relationship Status Dates Dr. Maricarmen Tavares MD Primary care physician Activ e Start: September 15, 2024 End: September 15, 2024 Dr. Maricarmen Tavares MD Referring Provider Active Start: September 15, 2024 End: September 15, 2024 Dr. Anselmo Gallagher MD Attending physician Active Start: September 15, 2024 End: September 15, 2024 Team Status: Inactive Member Role/Relationship Status Dates Dr. Maricarmen Tavares MD Primary care physician Activ e Start: September 25, 2024 End: September 25, 2024 Dr. Steve Metz MD Attending physician Active St art: September 25, 2024 End: September 25, 2024 Dr. Steve Metz MD Referring Provider Active Sta rt: September 25, 2024 End: September 25, 2024 Team Status: Inactive Member Role/Relationship Status Dates Dr. Maricarmen Tavares MD Primary care physician Activ e Start: November 04, 2024 End: November 04, 2024 Dr. Maricarmen Tavares MD Attending physician Active Start: November 04, 2024 End: November 04, 2024 Dr. Maricarmen Tavares MD Referring Provider Active Start: November 04, 2024 End: November 04, 2024 Team Status: Inactive Member Role/Relationship Status Dates Dr. Maricarmen Tavares MD Primary care physician Activ e Start: November 17, 2024 End: November 17, 2024 Dr. Maricarmen Tavares MD Referring Provider Active Start: November 17, 2024 End: November 17, 2024 Dr. Anselmo Gallagher MD Attending physician Active Start: November 17, 2024 End: November 17, 2024 Team Status: Active Member Role/Relationship Status Dates Dr. Maricarmen Tavares MD Primary care physician Activ e Start: December 14, 2024 Dr. Anselmo Gallagher MD Attending physician Active Start: December 14, 2024 Dr. Anselmo Gallagher MD Referring Provider Active S tart: December 14, 2024 Team Status: Inactive Member Role/Relationship Status Dates Dr. Maricarmen Tavares MD Primary care physician Activ e Start: December 15, 2024 End: December 15, 2024 Dr. Maricarmen Tavares MD Referring Provider Active Start: December 15, 2024 End: December 15, 2024 Dr. Anselmo Gallagher MD Attending physician Active Start: December 15, 2024 End: December 15, 2024 FOR RECORDS PERTAINING TO PATIENTS WHO ARE [...] BE BASED ON THE PRIMARY CLINICAL RECORDS. [facility] [employer] provides no warranty or guarantee of the accuracy or completeness of information in this document.
== END 2024-12-24 23:59 | disposition home or self-care (01) ==
PROVIDERS: PCP Internal Medicine; Referring Provider Internal Medicine Medical Oncology; Visit Provider Internal Medicine Medical Oncology
DX: R79.89 Other specified abnormal findings of blood chemistry (principal); D50.9 Iron deficiency anemia, unspecified
CPT/HCPCS: 76705; 76981

== ENCOUNTER → 2024-12-31 | Outpatient (CLI) | payer MEDICARE, SELFPAY | END | disposition home or self-care (01) | LOC: PSN 06:38 | PROVIDERS: PCP Internal Medicine; Referring Provider Internal Medicine; Visit Provider Internal Medicine | DX: R05.3 Chronic cough (principal) | CPT/HCPCS: 94060; 94726; 94729 ==

== ENCOUNTER → 2025-01-18 | Outpatient (CLI) | payer MEDICARE, SELFPAY ==
--- OUTSIDE RECORDS SUMMARY | 2025-01-18 06:48 | XMS RPT_ITS | CCD ---
Author Organization [facility] Care Team Providers Care Pick Up And Delivery Driver Name Role Phone PUSHPA CLARK MD Primary Care Physician [phone] Dr. Pushpa Clark Primary Care Provider Dr. Pushpa Clark Referring Provider [phone] Dr. Steve Metz Attending Provider [phone] Maricarmen Tavares Attending Provider [phone] Dr. Maricarmen Tavares Primary Care Provider [phone] Dr. Pushpa Clark Primary Care Provider Dr. Pushpa Clark Referring Provider [phone] Dr. Maricarmen Tavares Attending Provider [phone] Dr. Steve Metz Attending Provider [phone] Maricarmen Tavares Primary Care Provider [phone]) Dr. Maricarmen Tavares Referring Provider [phone] MICHAEL Limon Attending Provider [facility] Dr. Maricarmen Tavares Primary Care Provider [phone] Dr. Maricarmen Tavares Attending Provider [phone] Dr. Adriel Burgos Attending Provider [phone] Dr. Kevin Gonzalez Referring Provider Dr. Steve Metz Attending Provider Belen IRIZARRY, EDIE-C Maximiliano Attending Provider [phone] Dr. Maricarmen Tavares Primary Care Provider [phone] Chaitanya, Dr. Hernadez Referring Provider [phone] Dr. [...] ESTES, Dr. Hernadez Attending Provider [phone] Chaitanay ESTES, Dr. Hernadez Referring Provider [phone] Dr. Steve Metz MD Attending Provider Chaitanya ESTES, Dr. Hernadez Primary Care Provider Chaitanya ESETS, Dr. Hernadez Referring Provider [phone] Chaitanya ESTES, Dr. Hernadez Attending Provider [phone] Chaitanya ESTES, Dr. Hernadez Primary Care Provider Chaitanya ESTES, Dr. Hernadez Referring Provider King MEERA, Dr. Wilson Attending Provider Elliott ESTES, Dr. Briones Attending Provider Elliott ESTES, Dr. Briones Referring Provider King MEERA, Dr. Wilson Referring Provider Elliott ESTES, Dr. Briones Referring Provider Chaitanya ESTES, Dr. Hernadez Primary Care Physician Chaitanya ESTES, Dr. Hernadez Referring Provider [phone] King MEERA, Dr. Wilson Attending Physician Chaitanya ESTES, Dr. Hernadez Attending Physician Elliott ESTES, Dr. Briones Attending Physician Elliott ESTES, Dr. Briones Referring Provider Oleghe, Efewongbe Referring Unavailable Oleghe, Efewongbe Primary [...] Oleghe, Efewongbe Primary Care Unavailable Steve Metz Referring Unavailable Steve Metz Attending Unavailable Oleghe, Efewongbe Referring Unavailable Oleghe, Efewongbe Primary Care Unavailable Isaías, Steve Attending Unavailable Oleghe, Efewongbe Primary Care Unavailable Anselmo Gallagher Attending Unavailable Anselmo Gallagher Referring Unavailable Oleghe, Efewongbe Primary Care Unavailable Elliott, Anselmo Referring Unavailable Elliott, Anselmo Attending Unavailable Oleghe, Efewongbe Primary Care Unavailable Elliott, Anselmo Attending Unavailable Anselmo Gallagher Referring Unavailable Oleghe, Efewongbe Primary Care Unavailable Isaías, Steve Referring Unavailable Isaías, Steve Attending Unavailable Oleghe, Efewongbe Primary Care Unavailable Oleghe, Efewongbe Referring Unavailable Isaías, Steve Attending Unavailable Oleghe, Efewongbe Primary Care Unavailable Oleghe, Efewongbe Referring Unavailable Prah, Anselmo Attending Unavailable Oleghe, Efewongbe Primary Care Unavailable Oleghe, Efewongbe Referring Unavailable Oleghe, Efewongbe Attending Unavailable Oleghe, Efewongbe Primary Care Unavailable Oleghe, Efewongbe Referring Unavailable Prah, Anselmo Attending Unavailable Oleghe, Efewongbe Referring Unavailable Oleghe, Efewongbe Primary Care Unavailable Tyler Pagan Attending Unavailable Allergies Allergy Classification Reported Allergen(s) Allergy Type Date of Onset Reaction(s) Facility (2 sources) Adhesive Tape Drug allergy [facility] (20 sources) Meperidine; Translations: [meperidine] Drug Allergy 2 Unknown, Vomiting [facility] (3 sources) bandaid Allergy to substance 2 Other [facility] Work Phone: (20 sources) Adhesive agent; Translations: [adhesive] Allergy to substance 2 NEEDS FOLLOW-UP, [facility] Comment on above: from bandaid (1 source) Meperidine Drug Allergy 5 [facility] Repository Medications Current Medications Medication Drug Class(es) Dates Sig (Normalized) Sig (Original) azithromycin 250 mg oral tablet (2 sources) Macrolide Antimicrobial Start: 02-01-2021 End: 02-06-2021 Zithromax 250 mg oral tablet Dose : 250 mg = 1 tab(s), Oral, qDay, follow directions on Z-Errol, X 5 day(s), # 6 tab(s), 0 Refill(s), 02/06/21 9:34:00 EST, Pharmacy: [id number], 157, cm, 02/01/21 7:52:00 EST, Height, 109.2, kg, 02/01/21 7:52:00 EST, Dosing Weight Start Date: 02/01/21 Stop Date: 02/06/21 Status: Ordered Betamethasone / Clotrimazole (2 sources) Azole Antifungal, Corticosteroid Start: 02-01-2021 Lotrisone 1%-0.05% topical cream Apply 1 deshawn, Topical, BID, # 15 gram(s), 1 Refill(s), Pharmacy: [id number], Cream, 157, cm, 02/01/21 7:52:00 [...] 03-27-2022 End: 10-29-2022 Blood-Glucose Sensor (Freest yle Azucean 3 Sensor) device Discontinued 0 .Route 2 [...] mg tablet Active 25 mg PO daily 90 3 September 08, 2024 12:00am Complies with drug therapy Start: 02-09-2017 End: 12-31-2019 take 1 tablet by mouth once daily Empagliflozin (Jardiance) 25 mg tablet Discontinued 25 mg PO daily 30 December 16, 2017 [...] mellitus Type 2 diabetes mellitus with hyperglycemia [facility] (current) use of insulin Complies with drug therapy Start: 03-07-2023 End: 01-20-2024 Insulin Lispro (Humalog Kwik pen Insulin) 100 unit/mL insulin pen Discontinued 30 U SC THREE TIMES A DAY June 19, 2023 10:09am January 20, 2024 3:15pm Diabetes mellitus Type 2 diabetes mellitus with hyperglycemia 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 (current) use of insulin 34U in AM- [...] U SC THREE TIMES A DAY 15 August 22, 2021 12:00am September 18, 2021 4:03pm levocetirizine dihydrochloride [...] 11, 2023 12:00am August 05, 2024 10:14am Misc Medication (2 sources) Start: 01-14-2019 Mis Medicatio n blood sugar support 1 daily, 0 Refill(s) Start Date: 01/14/19 Status: Ordered Milford-3 1050 mg oral capsule (2 sources) Start: 01-14-2019 Milford-3 1050 m g oral capsule Dose : 1,050 mg = 1 cap(s), Oral, qDay, # 90 cap(s), 0 Refill(s) Start Date: 01/14/19 Status: Ordered polysaccharide iron complex 150 mg oral capsule (5 sources) Start: 09-15-2024 Polysaccharide Iron Complex (Ferrex 150) 150 mg iron capsule Active 150 mg PO ONCE 90 September 15, 2024 12:00am Complies with drug [...] A DAY as needed for cough 20 March 31, 2024 1:00am May 11, 2024 [...] March 27, 2022 3:54pm As directed Start: 10-30-2021 Flash Glucose Sensor [...] U SC THREE TIMES A DAY 81 3 March 07, 2023 1:00am March 07, 2023 4:02pm 3 ml insulin glargine 100 unt/ml pen injector (20 sources) Insulin Analog Start: 09-16-2023 End: 01-20-2024 Insulin Glargine 100 unit/mL (3 mL) insulin pen Discontinued 18 U SC AT BEDTIME 15 December 11, 2023 12:45pm January 20, 2024 3:15pm Diabetes mellitus Type 2 diabetes mellitus with hyperglycemia [facility] (current) use of insulin Start: 06-19-2023 End: 09-16-2023 Insulin Glargine 100 unit/mL (3 mL) insulin pen Discontinued 16 U SC AT BEDTIME June 19, 2023 10:09am September 16, 2023 2:05pm Diabetes mellitus Type 2 diabetes mellitus with hyperglycemia [facility] (current) use of insulin Start: 01-09-2023 End: 06-19-2023 Insulin Glargine 100 unit/mL (3 mL) insulin pen Discontinued 18 U SC AT BEDTIME 15 January 09, 2023 3:42pm June 19, 2023 10:10am Diabetes mellitus Type 2 diabetes mellitus with hyperglycemia 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 (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) 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 insulin Start: 03-27-2022 End: [...] pen Discontinued 26 U SC DAILY 15 3 February 16, 2021 4:40pm September 18, 2021 [...] A DAY as needed for Pain Score 1-June 07, 2020 12:00am January 31, 2022 11:25am [...] 27, 2022 4:47pm August 01, 2022 5:25pm Dp-Pu-Vysfdd-Djlrmdhj-Tclj-P rb 500 mcg DFE- 2.5 mg-50 mg capsule (7 sources) Start: 09-08-2024 End: 11-04-2024 Ex-Iq-Ogdgtz-Coyyxydi-Qtap-K rb 500 mcg DFE- 2.5 mg-50 mg capsule Discontinued NMA PO September 08, 2024 12:00am November 04, 2024 10:21am Start: 09-08-2024 Mf-Ke-Ttttvu-F cgrfjtj-Ayqm-Gcn 500 mcg DFE- 2.5 mg-50 mg capsule [...] 1 NMA TOPICAL TWICE A DAY 30 1 June 07, 2020 12:00am November 06, 2021 9:03am Start: 06-07-2020 End: 11-06-2021 Nystatin Discontinued 1 APPL IC TOPICAL TWICE A DAY 30 June 07, [...] mg tablet Discontinued 45 mg PO daily 07 02December 30, 2017 8:30am March 18, 2018 4:34pm [...] (20 sources) Mixed hyperlipidemia; Translations: [Mixed hyperlipidemia] 10-16-2018 Chronic Essential hypertension (20 sources) Benign [...] of knee, unspecified] Chronic Other diseases of kidney and ureters (2 sources) Other specified disorders of kidney and ureter; Translations: [Other specified disorders of kidney and ureter] Onset: 01-05-2025 Chronic Other diseases of veins and lymphatics (16 sources) Venous insufficiency of leg; Translations: [Venous insufficiency (chronic) (peripheral)] 08-01-2022 Episodic Other hematologic conditions (1 source) Serum ferritin high Episodic Other liver diseases (1 source) Fatty (change of) liver, not elsewhere classified; Translations: [Fatty (change of) liver, not elsewhere classified] Onset: 01-05-2025 Chronic Other lower respiratory disease (20 sources) Chronic cough; Translations: [Chronic cough] Onset: 01-09-2025 05-13-2023 Episodic Other nervous system disorders (20 [...] Da te Episodic/Chronic Other aftercare (1 source) [facility] (current) use of insulin; Translations: [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 [address] OFFICE VISIT Date of Service: 01/05/25 1117 MR#: [id number] Acct: [id number] Name: KIRILL ALMAZAN Rep #: [id number] : 1955 From: Anselmo Gallagher MD Age/Sex: 69/F Location: [facility] Status: Signed HPI Subjective Date of Service 01/05/25 Chief Complaint F/U CHARLIE/US results History of Present Illness 69-year-old woman was found to have iron deficiency anemia. She started iron rich food for 2 months but hemoglobin remained stable so referred for further evaluation. She has hemorrhoids which has not been bleeding for a long time. She took oral Iron but had no improvement. Got IV Iron on 12/21/2024 and 12/28/2024. Had US and liver elastography done. Comes for follow up. [facility] Medical History Iron deficiency anemia Anemia Chronic [...] week seatbelt use: always Intake Vital Signs 12/28/24 12:58 01/05/25 11:19 Height 5 ft 2 in 5 ft 2 in Weight: 99.932 kg BMI 40.3 BP 118/70 Blood Pressure Location Lt brachial Position Sitting Respiration 18 Pulse 86 Pulse Source Monitor Temp 98.6 F Temperature Source Temporal Artery Pulse Oximetry (%) 96 Oxygen Delivery Method room air Intake Accompanied by: Is patient in pain?: No Allergies adhesive Allergy (Mild, Verified 01/05/25 11:22) Hives meperidine (From Demerol) Adverse Reaction (Unknown, Verified 01/05/25 11:22) Vomiting Medications ???Medication ???Instructions ???Recorded ???Confirmed ???Type psyllium husk 0.4 gram capsule 0.4 g PO DAILY 10/21/23 01/05/25 H istory (Metamucil) FreeStyle Azucena 3 Sensor #2 ea 01/20/24 01/05/25 Rx (blood-glucose sensor) insulin lispro 100 unit/mL 35 unit (0.35 mL) subcut TID #96 m L 01/20/24 01/05/25 Rx subcutaneous pen (Humalog KwikPen (U-100) Insulin) metoprolol succinate 50 mg 50 mg PO DAILY #90 tabs 04/15/24 1 Rx tablet,extended release 24 hr pen needle, diabetic 32 gauge x #400 ea 05/11/24 01/05/25 Rx / (BD Ultra-Fine Ale Pen Needle) atorvastatin 10 mg tablet 10 mg PO DAILY #90 tabs 08/11/24 1 Rx biotin 1 mg capsule 1 mg PO QDAY 09/08/24 01/05/25 His tory cholecalciferol (vitamin D3) 25 25 mcg PO QDAY 09/08/24 01/05/25 H istory mcg (1,000 unit) capsule empagliflozin 25 mg tablet 25 mg PO QDAY #90 tabs 09/08/24 Rx (Jardiance) levocetirizine 5 mg tablet (Xyzal) 5 mg PO QDAY 09/08/24 01/05/25 H istory mecobalamin (vitamin B12) 1,000 1,000 mcg PO QDAY 09/08/24 5 History mcg chewable tablet polysaccharide iron complex 150 mg 150 mg PO ONCE #90 caps 09/15/24 01/05/25 Rx iron capsule (Ferrex) amlodipine 10 mg tablet 10 mg PO DAILY #90 tabs 10/06/24 1 Rx paroxetine HCl 10 mg tablet 10 mg PO DAILY #90 tabs 10/06/24 1 Rx insulin glargine 100 unit/mL (3 18 unit (0.18 mL) subcut QHS #15 m L 12/30/24 01/05/25 Rx mL) subcutaneous pen (more content not included)... Normal [facility] ABD Limited w/ Elastographyo n 12-24-2024 ABD Limited w/ Elastography [facility] [address] [place] [address] ABD Limited w/ Elastography MR#: [id number] Acct: [id number] Name: KIRILL ALMAZAN EMMANUEL Rep #: [id number] : 1955 F 69 From: Juanito garcia MD PCP: Dr. Maricarmen Tavares MD Status: REG CLI Study: ABD Limited w/ Elastography Date of Exam: 12/09 09/02 Exam# [id number] Ordering Dr: Anselmo Gallagher MD PROCEDURE: ABD LIMITED W/ ELASTOGRAPHY REASON FOR EXAM: HIGH FERRITIN LEVELS COMPARISON: None. TECHNIQUE: Procedure Code: USABDLELPARO Modality: US Procedure: ABD LIMITED W/ ELASTOGRAPHY Right upper quadrant abdominal ultrasound. [facility] ElastQ Imaging shear wave elastography for non- invasive assessment of liver tissue stiffness. [facility] EPIQ Elite. FINDINGS: LIVER: Size: Enlarged (hepatomegaly) Length: 18.3 cm Echotexture: Diffusely echogenic suggesting fatty infiltration Contour: Normal Lesions: None identified Elastography: EQI Med: 5.2 kPa EQI Med Cecilio: 1.3 m/s IQR/Med: 8.3 %* GALLBLADDER: Normal COMMON BILE DUCT: Normal measuring 3.5 mm . PANCREAS: Visualized portions are sonographically unremarkable. There is an 8.1 cm 8.8 cm 7.2 cm heterogeneous mass in the midpole of the right kidney. There is also evidence of a 4 cm x 3.8 cm 4.2 cm cyst in the upper pole. US/ABD Limited w/ Elastography IMPRESSION: NO TO MILD HEPATIC FIBROSIS Hepatomegaly. 8.1 cm 8.8 cm 7.2 cm heterogeneous mass in the midpole of the right kidney. A neoplastic process should be ruled out. Correlation with CT scan recommended. Reference Values: SRU <1.37 m/s (5.7kPa): No to mild fibrosis 1.37 m/s - 2.2 m/s: Moderate to severe fibrosis >2.2 m/s (15kPa): Significant fibrosis / cirrhosis METAVIR Score F2 or higher: 1.34 m/s (5.7kPa) F3 or higher: 1.55 m/s (7.3kPa) F4: 1.80 m/s (10kPa) * If the IQR/Med is >30%, the variance in the measurements is a large and the accuracy of the measurement may be in question. Reading Location: [place] [address] CC: Dr. Maricarmen Tavares MD; Dr. Anselmo Gallagher MD Ase Certified Technician: Signed Normal [facility] Oncology Visit Reporton Oncology Visit Report [facility] [address] [place] [address] OFFICE VISIT Date of Service: 12/15/24 1451 MR#: [id number] Acct: [id number] Name: KIRILL ALMAZAN Rep #: [id number] : 1955 From: Anselmo Gallagher MD Age/Sex: 69/F Location: [facility] Status: Signed HPI Subjective Date of Service [...] Comes for follow up. Feels tired. [facility] Medical History Iron deficiency anemia Anemia Chronic [...] gauge x #400 ea 05/11/24 12/15/24 Rx /32 (BD Ultra-Fine Ale Pen Needle) atorvastatin 10 [...] 10 mg (more content not included)... Normal [facility] Absolute lymphocyte countOrd ered By: Anselmo Gallagher on 12-14-2024 Lymphocytes Auto (Unsp spec) [#/Vol] 1.88 10*3/uL 0.83-4.51 [facility] Absolute neutrophil countOrd ered By: Anselmo Gallagher on 12-14-2024 Neutrophils (Bld) [#/Vol] 6.1 10*3/uL 2.0-7.7 [facility] Anion gap in Serum or Plasma Ordered By: Anselmo Gallagher on 12-14-2024 Anion gap [Moles/Vol] 12 mmol/L 5-15 [facility] Automated lymphocyte count a s percentage of total leukocytesOrdered By: Anselmo Gallagher on 12-14-2024 Lymphocytes/100 WBC Auto (Unsp spec) 21.6 % 19- [facility] BUN/creatinine ratioOrdered By: Anselmo Gallagher on 12-14-2024 Urea nitrogen/Creatinine [Mass ratio] 11.7 mg/mg 10- [facility] Comment on above: Previous reported re sult: 12.3 RATIOEdited by: TRI on 12/14/24:1134 AMENDED REPORT 12/14/24 1134 BUN/CRE previously reported as: 12.3 RATIO Basophil percentageOrdered B y: Anselmo Gallagher on 12-14-2024 Basophils/100 WBC (Bld) 0.3 % 0-1 [facility] Bilirubin, totalOrdered By: Anselmo Gallagher on 12-14-2024 Bilirubin [Mass/Vol] 0.32 mg/dL 0.00-1.30 [facility] Comment on above: Previous reported re sult: 0.28 mg/dLEdited by: TRI on 12/14/24:1134 AMENDED REPORT 12/14/24 1134 T BILI previously reported as: 0.28 mg/dL CBC W/Diff, Automatedon Absolute Lymph 1.88 X10 3/uL Normal 0.83-4.51 [facility] Comment on above: Performed By: #### L 101.9900, L100.0100, L100.9950, L500.4050, L501.6710, L503.0106, L503.6030, L501.5200 #### [facility] [address] [place], [address] Absolute Neut 6.1 X10 3/uL Normal 2.0-7.7 [facility] Comment on above: Performed By: #### L 101.9900, L100.0100, L100.9950, L500.4050, L501.6710, L503.0106, L503.6030, L501.5200 #### [facility] [address] [place], [address] Basophils/100 WBC (Bld) 0.3 % Normal 0-1 [facility] Comment on above: Performed By: #### L 101.9900, L100.0100, L100.9950, L500.4050, L501.6710, L503.0106, L503.6030, L501.5200 #### [facility] [address] [place], [address] Eosinophils/100 WBC (Bld) 1.4 % Normal 0-5 [facility] Comment on above: Performed By: #### L 101.9900, L100.0100, L100.9950, L500.4050, L501.6710, L503.0106, L503.6030, L501.5200 #### [facility] [address] [place], [address] Erythrocyte distribution width (RBC) [Ratio] 17.2 % High 11.6-14.6 [facility] Comment on above: Performed By: #### L 101.9900, L100.0100, L100.9950, L500.4050, L501.6710, L503.0106, L503.6030, L501.5200 #### [facility] [address] [place], [address] Hematocrit (Bld) [Volume fraction] 36.0 % Low 37-47 [facility] Comment on above: Performed By: #### L 101.9900, L100.0100, L100.9950, L500.4050, L501.6710, L503.0106, L503.6030, L501.5200 #### [facility] [address] [place], [address] Hemoglobin (Bld) [Mass/Vol] 10.6 g/dL Low 12.0-15.0 [facility] Comment on above: Performed By: #### L 101.9900, L100.0100, L100.9950, L500.4050, L501.6710, L503.0106, L503.6030, L501.5200 #### [facility] [address] [place], [address] IG% 0.300 Normal 0.0-0.9 [facility] Comment on above: Result Comment: IG% - Immature Granulocytes (promyelocytes, myelocytes and metamyelocytes) > 1% indicates that a LEFT SHIFT is Present. Performed By: #### L 101.9900, L100.0100, L100.9950, L500.4050, L501.6710, L503.0106, L503.6030, L501.5200 #### [facility] [address] [place], [address] Lymphocytes/100 WBC (Bld) 21.6 % Normal 19-41 [facility] Comment on above: Performed By: #### L 101.9900, L100.0100, L100.9950, L500.4050, L501.6710, L503.0106, L503.6030, L501.5200 #### [facility] [address] [place], [address] MCH (RBC) [Entitic mass] 25.1 pg Low 27.0-32.0 [facility] Comment on above: Performed By: #### L 101.9900, L100.0100, L100.9950, L500.4050, L501.6710, L503.0106, L503.6030, L501.5200 #### [facility] [address] [place], [address] MCHC (RBC) [Mass/Vol] 29.4 g/dL Low 32-36 [facility] Comment on above: Performed By: #### L 101.9900, L100.0100, L100.9950, L500.4050, L501.6710, L503.0106, L503.6030, L501.5200 #### [facility] [address] [place], [address] MCV (RBC) [Entitic vol] 85.3 fL Normal 81-99 [facility] Comment on above: Performed By: #### L 101.9900, L100.0100, L100.9950, L500.4050, L501.6710, L503.0106, L503.6030, L501.5200 #### [facility] [address] [place], [address] Monocytes/100 WBC (Bld) 6.4 % Normal 0-10 [facility] Comment on above: Performed By: #### L 101.9900, L100.0100, L100.9950, L500.4050, L501.6710, L503.0106, L503.6030, L501.5200 #### [facility] [address] [place], [address] Neutrophils/100 WBC (Bld) 70.0 % Normal 47-70 [facility] Comment on above: Performed By: #### L 101.9900, L100.0100, L100.9950, L500.4050, L501.6710, L503.0106, L503.6030, L501.5200 #### [facility] [address] [facility] [place], [address] Nucleated RBC (Bld) [#/Vol] 0 10*3/uL Normal 0-5 [facility] Comment on above: Performed By: #### L 101.9900, L100.0100, L100.9950, L500.4050, L501.6710, L503.0106, L503.6030, L501.5200 #### [facility] [address] [facility] [place], [address] Platelet mean volume (Bld) [Entitic vol] 10.1 fL Normal 6.2-12.0 [facility] Comment on above: Performed By: #### L 101.9900, L100.0100, L100.9950, L500.4050, L501.6710, L503.0106, L503.6030, L501.5200 #### [facility] [address] [place], [address] Platelets (Bld) [#/Vol] 469 10*3/uL High 150-450 [facility] Comment on above: Performed By: #### L 101.9900, L100.0100, L100.9950, L500.4050, L501.6710, L503.0106, L503.6030, L501.5200 #### [facility] [address] [place], [address] RBC (Bld) [#/Vol] 4.22 10*6/uL Normal 4.2-5.4 [facility] Comment on above: Performed By: #### L 101.9900, L100.0100, L100.9950, L500.4050, L501.6710, L503.0106, L503.6030, L501.5200 #### [facility] [address] [place], [address] RDW SD 53.2 fl High 35.1-43.9 [facility] Comment on above: Performed By: #### L 101.9900, L100.0100, L100.9950, L500.4050, L501.6710, L503.0106, L503.6030, L501.5200 #### [facility] [address] [place], [address] WBC (Bld) [#/Vol] 8.7 10*3/uL Normal 4.4-11.0 [facility] Comment on above: Performed By: #### L 101.9900, L100.0100, L100.9950, L500.4050, L501.6710, L503.0106, L503.6030, L501.5200 #### [facility] [address] [place], [address] CRPon 12-14-2024 C-REACTIVE PROT 123.00 mg/L High 0.0-3.0 [facility] Comment on above: Performed By: #### L 503.6550, L503.6030 #### [facility] [address] [place], [address] Carbon dioxide, total [Moles /volume] in Central venous bloodOrdered By: Anselmo Gallagher on 12-14-2024 CO2 [Moles/Vol] 25.9 mmol/L 21.0-32.0 [facility] Comment on above: Previous reported re sult: 24.6 mmol/LEdited by: TRI on 12/14/24:1134 AMENDED REPORT 12/14/241133 CO2 previously reported as: 24.6 mmol/L Chloride assayOrdered By: Tessy Gallagher on 12-14-2024 Chloride [Moles/Vol] 101 mmol/L 98-108 [facility] Comprehensive Metabolic Prof ilon 12-14-2024 Albumin [Mass/Vol] 3.6 g/dL Normal 3.4-4.8 [facility] Comment on above: Result Comment: AMENDED REPORT 12/14/241133 ALB previously reported as: 3.5 g/dL Performed By: #### L 503.6550, L503.6030 #### [facility] [address] [place], [address] Albumin/Globulin [Mass ratio] 0.9 {ratio} Normal 0.9-2.4 [facility] Comment on above: Performed By: #### L 503.6550, L503.6030 #### [facility] [address] [place], [address] ALK PHOS 75 U/L Normal 35-104 [facility] Comment on above: Result Comment: AMENDED REPORT 12/14/241133 ALK P previously reported as: 76 U/L Performed By: #### L 503.6550, L503.6030 #### [facility] [address] [place], [address] ALT [Catalytic activity/Vol] U/L Normal <=34 [facility] Comment on above: Result Comment: AMENDED REPORT 12/14/241133 ALT previously reported as: 5 U/L Performed By: #### L 503.6550, L503.6030 #### [facility] [address] [place], [address] AST [Catalytic activity/Vol] 9 U/L Normal <=31 [facility] Comment on above: Performed By: #### L 503.6550, L503.6030 #### [facility] [address] [place], [address] Bilirubin [Mass/Vol] 0.32 mg/dL Normal 0.00-1.30 [facility] Comment on above: Result Comment: AMENDED REPORT 12/14/241133 T BILI previously reported as: 0.28 mg/dL Performed By: #### L 503.6550, L503.6030 #### [facility] [address] [place], [address] BUN/CRE 11.7 RATIO Normal 10-20 [facility] Comment on above: Result Comment: AMENDED REPORT 12/14/241133 BUN/CRE previously reported as: 12.3 RATIO Performed By: #### L 503.6550, L503.6030 #### [facility] [address] [place], [address] Calcium [Mass/Vol] 9.7 mg/dL Normal 7.6-11.0 [facility] Comment on above: Performed By: #### L 503.6550, L503.6030 #### [facility] [address] [place], [address] Chloride [Moles/Vol] 101 mmol/L Normal 98-108 [facility] Comment on above: Performed By: #### L 503.6550, L503.6030 #### [facility] [address] [place], [address] CO2 [Moles/Vol] 25.9 mmol/L Normal 21.0-32.0 [facility] Comment on above: Result Comment: AMENDED REPORT 12/14/241133 CO2 previously reported as: 24.6 mmol/L Performed By: #### L 503.6550, L503.6030 #### [facility] [address] [place], [address] Creatinine [Mass/Vol] 0.91 mg/dL Normal 0.70-1.20 [facility] Comment on above: Result Comment: AMENDED REPORT 12/14/241133 CREAT,SERUM previously reported as: 0.85 mg/dL Performed By: #### L 503.6550, L503.6030 #### [facility] [address] [place], [address] ECRCL 66.80 ml/min Normal 50-250 [facility] Comment on above: Result Comment: AMENDED REPORT 12/14/241133 Estimated CRCL previously reported as: 71.52 ml/min Performed By: #### L 503.6550, L503.6030 #### [facility] [address] [place], [address] GAP 12 Normal 5-15 [facility] Comment on above: Performed By: #### L 503.6550, L503.6030 #### [facility] [address] [place], [address] Globulin (S) [Mass/Vol] 3.9 g/dL Normal 2.2-4.2 [facility] Comment on above: Result Comment: AMENDED REPORT 12/14/241133 GLOB previously reported as: 4.0 g/dL Performed By: #### L 503.6550, L503.6030 #### [facility] [address] [place], [address] Glucose [Mass/Vol] 278 mg/dL High 70-99 [facility] Comment on above: Performed By: #### L 503.6550, L503.6030 #### [facility] [address] [place], [address] Potassium [Moles/Vol] 4.1 mmol/L Normal 3.3-5.1 [facility] Comment on above: Performed By: #### L 503.6550, L503.6030 #### [facility] [address] [place], [address] Sodium [Moles/Vol] 139 mmol/L Normal 133-145 [facility] Comment on above: Performed By: #### L 503.6550, L503.6030 #### [facility] [address] [place], [address] T PROT 7.4 g/dL Normal 5.9-8.4 [facility] Comment on above: Performed By: #### L 503.6550, L503.6030 #### [facility] [address] [place], [address] Urea nitrogen [Mass/Vol] 11 mg/dL Normal 4-19 [facility] Comment on above: Result Comment: AMENDED REPORT 12/14/24 1134 BUN previously reported as: 10 mg/dL Performed By: #### L 503.6550, L503.6030 #### [facility] [address] [place], [address] Eosinophil percentageOrdered By: Anselmo Gallagher on 12-14-2024 Eosinophils/100 WBC (Bld) 1.4 % 0-5 [facility] Erythrocyte Sed Rateon 12-14 SED RATE 64 mm/hr High 0-30 [facility] Comment on above: Performed By: #### L 503.6550, L503.6030 #### [facility] [address] [place], [address] Erythrocyte distribution wid th ratioOrdered By: Anselmo Gallagher on 12-14-2024 Erythrocyte distribution width (RBC) [Ratio] 17.2 % High 11.6-14.6 [facility] Erythrocyte distribution wid th standard deviationOrdered By: Anselmo Gallagher on 12-14-2024 Erythrocyte distribution width (RBC) [Ratio] 53.2 fl High 35.1-43.9 [facility] Erythrocyte sedimentation ra teOrdered By: Anselmo Gallagher on 12-14-2024 ESR (Bld) [Velocity] 64 mm/h High 0-30 [facility] Ferritinon 12-14-2024 Ferritin [Mass/Vol] 874 ng/mL High 22-378 [facility] Comment on above: Performed By: #### L 501.5200, L503.6030, L503.0106, L3100.1725, L500.4050 #### [facility] [address] [place], [address] Glomerular filtration rate ( GFR) estimation/1.73 sq m using serum, plasma, or whole bOrdered By: Anselmo Gallagher on 12-14-2024 GFR/1.73 sq M.predicted among non-blacks MDRD (S/P/Bld) [Vol rate/Area] 75 mL/min/{1.73_m2} >60 [facility] Comment on above: mL/min/1.73m2 CKD-EP I Creatinine Equation (2020) Hematocrit Auto (Bld) [Volum e fraction]Ordered By: Anselmo Gallagher on 12-14-2024 Hematocrit (Bld) [Volume fraction] 36.0 % Low 37-47 [facility] Hemoglobin measurementOrdere d By: Anselmo Gallagher on 12-14-2024 Hemoglobin (Bld) [Mass/Vol] 10.6 g/dL Low 12.0-15.0 [facility] Immature granulocytes/100 WB C Auto (Bld)Ordered By: Anselmo Gallagher on 12-14-2024 Immature granulocytes/100 WBC (Bld) 0.300 % 0.0-0.9 [facility] Comment on above: IG% - Immature Granu locytes (promyelocytes, myelocytes and metamyelocytes) > 1% indicates that a LEFT SHIFT is Present. Iron measurement (mass/mass) Ordered By: Anselmo Gallagher on 12-14-2024 Iron (Unsp spec) [Mass/Mass] 23 ug/dL Low 50-170 [facility] Iron+Iron Binding Capacityon 12-14-2024 TIBC 182 ug/dL Low 250-450 [facility] Comment on above: Performed By: #### L 503.6550, L503.6030 #### [facility] [address] [place], [address] LDHon 12-14-2024 LDH 149 U/L Normal 84-246 [facility] Comment on above: Order Comment: 1 Performed By: #### L 501.5200, L503.6030, L503.0106, L3100.1725, L500.4050 #### [facility] [address] [place], [address] Laboratory - Chemistry and C hemistry - challengeOrdered By: Anselmo Gallagher on 12-14-2024 AST [Catalytic activity/Vol] 9 U/L <32 [facility] Lactate dehydrogenase (LDH) measurementOrdered By: Anselmo Gallagher on 12-14-2024 LDH [Catalytic activity/Vol] 149 U/L 84-246 [facility] MCV (mean corpuscular volume ) determinationOrdered By: Anselmo Gallagher on 12-14-2024 MCV (RBC) [Entitic vol] 85.3 fL 81-99 [facility] Magnesiumon 12-14-2024 Magnesium [Mass/Vol] 2.1 mg/dL Normal 1.5-2.2 [facility] Comment on above: Performed By: #### L 503.6550, L503.6030 #### [facility] [address] [place], [address] Magnesium measurement (mass/ volume)Ordered By: Anselmo Gallagher on 12-14-2024 Magnesium (Unsp spec) [Mass/Vol] 2.1 mg/dL 1.5-2.2 [facility] Mean corpuscular hemoglobin (MCH) determinationOrdered By: Anselmo Gallagher on 12-14-2024 MCH (RBC) [Entitic mass] 25.1 pg Low 27.0-32.0 [facility] Mean corpuscular hemoglobin concentration (MCHC) determinationOrdered By: Anselmo Gallagher on 12-14-2024 MCHC (RBC) [Mass/Vol] 29.4 g/dL Low 32-36 [facility] Mean platelet volume determi nationOrdered By: Anselmo Gallagher on 12-14-2024 Platelet mean volume (Bld) [Entitic vol] 10.1 fL 6.2-12.0 [facility] Monocyte percentageOrdered B y: Anselmo Gallagher on 12-14-2024 Monocytes/100 WBC (Bld) 6.4 % 0-10 [facility] Neutrophil percentageOrdered By: Anselmo Gallagher on 12-14-2024 Neutrophils/100 WBC (Bld) 70.0 % 47-70 [facility] No Panel InformationOrdered By: Anselmo Gallagher on 12-14-2024 Unsaturated Iron Binding Capacity 159 ug/dL Low 228-428 [facility] Nucleated red blood cell per centageOrdered By: Anselmo Gallagher on 12-14-2024 Nucleated RBC/100 WBC (Bld) [Ratio] 0 % 0-5 [facility] Phosphoruson 12-14-2024 Phosphate [Mass/Vol] 2.7 mg/dL Normal 2.7-4.5 [facility] Comment on above: Performed By: #### L 501.5200, L503.6030, L503.0106, L3100.1725, L500.4050 #### [facility] [address] [place], [address] Platelet countOrdered By: Tessy Gallagher on 12-14-2024 Platelets (Bld) [#/Vol] 469 10*3/uL High 150-450 [facility] Potassium measurement (mass/ volume)Ordered By: Anselmo Gallagher on 12-14-2024 Potassium (Unsp spec) [Mass/Vol] 4.1 mmol/L 3.3-5.1 [facility] RBC Auto (Bld) [#/Vol]Ordere d By: Anselmo Gallagher on 12-14-2024 RBC (Bld) [#/Vol] 4.22 10*6/uL 4.2-5.4 [facility] Retic Panelon 12-14-2024 IM RET FRACTION 19.00 High 3.00-15.90 [facility] Comment on above: Performed By: #### L 101.9900, L100.0100, L100.9950, L500.4050, L501.6710, L503.0106, L503.6030, L501.5200 #### [facility] [address] [place], [address] RET-HE 25.0 pg Low 30-35 [facility] Comment on above: Performed By: #### L 101.9900, L100.0100, L100.9950, L500.4050, L501.6710, L503.0106, L503.6030, L501.5200 #### [facility] [address] [place], [address] Retic Count 1.48 Normal 0.5-1.5 [facility] Comment on above: Performed By: #### L 101.9900, L100.0100, L100.9950, L500.4050, L501.6710, L503.0106, L503.6030, L501.5200 #### [facility] [address] [facility] [place], [place], [id number] Reticulocyte hemoglobin equi valent (RET-He) measurementOrdered By: Anselmo Gallagher on 12-14-2024 Hemoglobin (Reticulocytes) [Entitic mass] 25.0 pg Low 30-35 [facility] Reticulocytes Auto (Bld) [#/ Vol]Ordered By: Anselmo Gallagher on 12-14-2024 Reticulocytes/100 RBC (Bld) 1.48 % 0.5-1.5 [facility] Serum creatinine measurement (mass/volume)Ordered By: Anselmo Gallagher on 12-14-2024 Creatinine [Mass/Vol] 0.91 mg/dL 0.70-1.20 [facility] Comment on above: Previous reported re sult: 0.85 mg/dLEdited by: TRI on 12/14/24:1134 AMENDED REPORT 12/14/24 1134 CREAT,SERUM previously reported as: 0.85 mg/dL Serum globulin measurementOr dered By: Anselmo Gallagher on 12-14-2024 Globulin (S) [Mass/Vol] 3.9 g/dL 2.2-4.2 [facility] Comment on above: Previous reported re sult: 4.0 g/dLEdited by: TRI on 12/14/24:1134 AMENDED REPORT 12/14/24 1134 GLOB previously reported as: 4.0 g/dL Serum glucose measurement (m ass/volume)Ordered By: Anselmo Gallagher on 12-14-2024 Glucose [Mass/Vol] 278 mg/dL High 70-99 [facility] Serum or plasma C reactive p rotein measurement (mass/volume)Ordered By: Anselmo Gallagher on 12-14-2024 CRP [Mass/Vol] 123.00 mg/L High 0.0-3.0 [facility] Serum or plasma alanine lloyd otransferase (ALT) measurementOrdered By: Anselmo Gallagher on 12-14-2024 ALT [Catalytic activity/Vol] U/L <35 [facility] Comment on above: Previous reported re sult: 5 U/LEdited by: TRI on 12/14/24:1134 AMENDED REPORT 12/14/24 1134 ALT previously reported as: 5 U/L Serum or plasma albumin akanksha urement (mass/volume)Ordered By: Anselmo Gallagher on 12-14-2024 Albumin [Mass/Vol] 3.6 g/dL 3.4-4.8 [facility] Comment on above: Previous reported re sult: 3.5 g/dLEdited by: TRI on 12/14/24:1134 AMENDED REPORT 12/14/24 1134 ALB previously reported as: 3.5 g/dL Serum or plasma albumin/glob ulin mass ratioOrdered By: Anselmo Gallagher on 12-14-2024 Albumin/Globulin [Mass ratio] 0.9 {ratio} 0.9-2.4 [facility] Serum or plasma alkaline fern sphatase measurementOrdered By: Anselmo Gallagher on 12-14-2024 ALP [Catalytic activity/Vol] 75 U/L 35-104 [facility] Comment on above: Previous reported re sult: 76 U/LEdited by: TRI on 12/14/24:1134 AMENDED REPORT 12/14/24 1134 ALK P previously reported as: 76 U/L Serum or plasma calcium akanksha urement (mass/volume)Ordered By: Anselmo Gallagher on 12-14-2024 Calcium [Mass/Vol] 9.7 mg/dL 7.6-11.0 [facility] Serum or plasma ferritin chantel surement (mass/volume)Ordered By: Anselmo Gallagher on 12-14-2024 Ferritin [Mass/Vol] 874 ng/mL High 22-378 [facility] Serum or plasma iron saturat ion measurement (mass fraction)Ordered By: Anselmo Gallagher on 12-14-2024 Iron saturation [Mass fraction] 12.6 % Low 13-59 [facility] Comment on above: Previous reported re sult: 12.8 %Edited by: OTTONIEL on 12/14/24:1134 AMENDED REPORT 12/14/24 1134 IRON SATURATION previously reported as: 12.8 L % Serum or plasma urea nitroge n measurement (mass/volume)Ordered By: Anselmo Gallagher on 12-14-2024 Urea nitrogen [Mass/Vol] 11 mg/dL 4-19 [facility] Comment on above: Previous reported re sult: 10 mg/dLEdited by: TRI on 12/14/24:1134 AMENDED REPORT 12/14/24 1134 BUN previously reported as: 10 mg/dL Sodium levelOrdered By: Osiel Gallagher on 12-14-2024 Sodium [Moles/Vol] 139 mmol/L 133-145 [facility] Total proteinOrdered By: Herman Gallagher on 12-14-2024 Protein [Mass/Vol] 7.4 g/dL 5.9-8.4 [facility] Vitamin B12on 12-14-2024 Cobalamin (Vitamin B12) [Mass/Vol] 356 pg/mL Normal 180-914 [facility] Comment on above: Result Comment: AMENDED REPORT 12/14/24 1133 Vitamin B12 previously reported as: 381 pg/mL Performed By: #### L 503.6533, L503.6030 #### [facility] [address] [place], [address] Vitamin B12 ser/plasOrdered By: Anselmo Gallagher on 12-14-2024 Cobalamin (Vitamin B12) [Mass/Vol] 356 pg/mL 180-914 [facility] Comment on above: Previous reported re sult: 381 pg/mLEdited by: TRI on 12/14/24:1133 AMENDED REPORT 12/14/24 1133 Vitamin B12 previously reported as: 381 pg/mL White blood cell (WBC) count Ordered By: Anselmo Gallagher on 12-14-2024 WBC (Bld) [#/Vol] 8.7 10*3/uL 4.4-11.0 [facility] Celiac AB,Comprehensiveon ANTIGLIADIN IGA 18 units Normal 0-19 [facility] Comment on above: Result Comment: Nega tive 0 - 19 Weak Positive 20 - 30 Moderate to Strong Positive >30 Performed By: #### L 501.5200, L503.6030, L503.0106, L3100.1725, L500.4050 #### [facility] [address] [place], [address] ANTIGLIADIN IGG 3 units Normal 0-19 [facility] Comment on above: Result Comment: Nega tive 0 - 19 Weak Positive 20 - 30 Moderate to Strong Positive >30 Performed By: #### L 501.5200, L503.6030, L503.0106, L3100.1725, L500.4050 #### [facility] [address] [place], [address] ENDOMYSIAL IGA Negative Normal Negative [facility] Comment on above: Performed By: #### L 501.5200, L503.6030, L503.0106, L3100.1725, L500.4050 #### [facility] [address] [place], [address] IMMUNOGLOB A QN 339 mg/dL Normal 87-352 [facility] Comment on above: Result Comment: Perf ormed at: [facility] - [facility] [address] [id number] Slat Basket Top Maker: Regan Bird PhD, Phone: [phone] Performed By: #### L 501.5200, L503.6030, L503.0106, L3100.1725, L500.4050 #### [facility] [address] [place], [address] tTG IGA 2 U/mL Normal 0-3 [facility] Comment on above: Result Comment: Nega tive 0 - 3 Weak Positive 4 - 10 Positive >10 Tissue Transglutaminase (tTG) has been identified as the endomysial antigen. Studies have demonstr- ated that endomysial IgA antibodies have over 99% specificity for gluten sensitive enteropathy. Performed By: #### L 501.5200, L503.6030, L503.0106, L3100.1725, L500.4050 #### [facility] [address] [place], [place], [address] tTG IGG 3 U/mL Normal 0-5 [facility] Comment on above: Result Comment: Nega tive 0 - 5 Weak Positive 6 - 9 Positive >9 Performed By: #### L 501.5200, L503.6030, L503.0106, L3100.1725, L500.4050 #### [facility] [address] [place], [place], [address] No Panel InformationOrdered By: Anselmo Gallagher on 11-17-2024 Tissue Transglutaminase IgG Ab 3 U/mL 0-5 [facility] Comment on above: Negative 0 - 5 Weak Positive 6 - 9 Positive >9 Oncology Visit Reporton Oncology Visit Report [facility] [address] [place], [place] [address] OFFICE VISIT Date of Service: 11/17/24 1246 MR#: [id number] Acct: [id number] Name: KIRILL ALMAZAN Rep #: [id number] 8 : 1955 From: Anselmo Gallagher MD Age/Sex: 69/F Location: [facility] Status: Signed HPI Subjective Date of Service [...] up after 2 months. Feels well. [facility] Medical History Iron deficiency anemia Anemia Chronic [...] H istory (more content not included)... Normal [facility] Serum tissue transglutaminas e (tTG) IgA antibody assay (units/volume)Ordered By: Anselmo Gallagher on 11-17-2024 tTG IgA Qn (S) 2 U/mL 0-3 [facility] Comment on above: Negative 0 - 3 Weak Positive 4 - 10 Positive >10 Tissue Transglutaminase (tTG) has been identified as the endomysial antigen. Studies have demonstr- ated that endomysial IgA antibodies have over 99% specificity for gluten sensitive enteropathy. Erythropoietinon 11-13-2024 ERYTHROPOIETIN 43.8 mIU/mL High 2.6-18.5 [facility] Comment on above: Result Comment: [employer] 800 Immunoassay System Values obtained with different assay methods or kits cannot be used interchangeably. Results cannot be interpreted as absolute evidence of the presence or absence of malignant disease. Performed at: [facility] [address] [place], [place] [id number] Slat Basket Top Maker: Regan Bird PhD, Phone: [phone] Performed By: #### L 501.5200, L503.6030, L503.0106, L3100.1725, L500.4050 #### [facility] [address] [place], [address] Folates, RBCon 11-13-2024 Fol.,Hemolysate 491.0 ng/mL Normal Not Estab. [facility] Comment on above: Performed By: #### L 501.5200, L503.6030, L503.0106, L3100.1725, L500.4050 #### [facility] [address] [place], [address] Folate, RBC 1466 ng/mL Normal >498 [facility] Comment on above: Result Comment: Perf ormed at: [facility] [address] [place], [place] [id number] Sl[employer] Basket Top Maker: Regan Bird PhD, Phone: [phone] Performed By: #### L 501.5200, L503.6030, L503.0106, L3100.1725, L500.4050 #### [facility] [address] [place], [address] Hematocrit (Bld) [Volume fraction] 33.5 % Low 34.0-46.6 [facility] Comment on above: Performed By: #### L 501.5200, L503.6030, L503.0106, L3100.1725, L500.4050 #### [facility] [address] [place], [address] Absolute lymphocyte countOrd ered By: Anselmo Gallagher on 11-12-2024 Lymphocytes Auto (Unsp spec) [#/Vol] 1.93 10*3/uL 0.83-4.51 [facility] Absolute neutrophil countOrd ered By: [facility] on 11-12-2024 Neutrophils (Bld) [#/Vol] 6.7 10*3/uL 2.0-7.7 [facility] Anion gap in Serum or Plasma Ordered By: Anselmo Gallagher on 11-12-2024 Anion gap [Moles/Vol] 11 mmol/L 5-15 [facility] Automated lymphocyte count a s percentage of total leukocytesOrdered By: Anselmo Gallagher on 11-12-2024 Lymphocytes/100 WBC Auto (Unsp spec) 20.3 % 19-41 [facility] BUN/creatinine ratioOrdered By: [facility] on 11-12-2024 Urea nitrogen/Creatinine [Mass ratio] 11.3 mg/mg 10-20 [facility] Basophil percentageOrdered B y: Anselmo Gallagher on 11-12-2024 Basophils/100 WBC (Bld) 0.2 % 0-1 [facility] Bilirubin, totalOrdered By: Anselmo Gallagher on 11-12-2024 Bilirubin [Mass/Vol] 0.33 mg/dL 0.00-1.30 [facility] CBC W/Diff, Automatedon Absolute Lymph 1.93 X10 3/uL Normal 0.83-4.51 [facility] Comment on above: Performed By: #### L 503.6550, L503.6030 #### [facility] [address] [place], [address] Absolute Neut 6.7 X10 3/uL Normal 2.0-7.7 [facility] Comment on above: Performed By: #### L 503.6550, L503.6030 #### [facility] [address] [place], [address] Basophils/100 WBC (Bld) 0.2 % Normal 0-1 [facility] Comment on above: Performed By: #### L 503.6550, L503.6030 #### [facility] [address] [place], [address] Eosinophils/100 WBC (Bld) 1.8 % Normal 0-5 [facility] Comment on above: Performed By: #### L 503.6550, L503.6030 #### [facility] [address] [place], [address] Erythrocyte distribution width (RBC) [Ratio] 17.0 % High 11.6-14.6 [facility] Comment on above: Performed By: #### L 503.6550, L503.6030 #### [facility] [address] [place], [address] Hematocrit (Bld) [Volume fraction] 33.2 % Low 37-47 [facility] Comment on above: Performed By: #### L 503.6550, L503.6030 #### [facility] [address] [place], [address] Hemoglobin (Bld) [Mass/Vol] 10.2 g/dL Low 12.0-15.0 [facility] Comment on above: Performed By: #### L 503.6550, L503.6030 #### [facility] [address] [place], [address] IG% 0.200 Normal 0.0-0.9 [facility] Comment on above: Result Comment: IG% - Immature Granulocytes (promyelocytes, myelocytes and metamyelocytes) > 1% indicates that a LEFT SHIFT is Present. Performed By: #### L 503.6550, L503.6030 #### [facility] [address] [place], [address] Lymphocytes/100 WBC (Bld) 20.3 % Normal 19-41 [facility] [facility] Comment on above: Performed By: #### L 503.6550, L503.6030 #### [facility] [address] [place], [address] MCH (RBC) [Entitic mass] 26.0 pg Low 27.0-32.0 [facility] Comment on above: Performed By: #### L 503.6550, L503.6030 #### [facility] [address] [place], [address] MCHC (RBC) [Mass/Vol] 30.7 g/dL Low 32-36 [facility] Comment on above: Performed By: #### L 503.6550, L503.6030 #### [facility] [address] [place], [address] MCV (RBC) [Entitic vol] 84.5 fL Normal 81-99 [facility] Comment on above: Performed By: #### L 503.6550, L503.6030 #### [facility] [address] [place], [address] Monocytes/100 WBC (Bld) 6.7 % Normal 0-10 [facility] Comment on above: Performed By: #### L 503.6550, L503.6030 #### [facility] [address] [place], [address] Neutrophils/100 WBC (Bld) 70.8 % High 47-70 [facility] Comment on above: Performed By: #### L 503.6550, L503.6030 #### [facility] [address] [place], [address] Nucleated RBC (Bld) [#/Vol] 0 10*3/uL Normal 0-5 [facility] Comment on above: Performed By: #### L 503.6550, L503.6030 #### [facility] [address] [place], [address] Platelet mean volume (Bld) [Entitic vol] 9.9 fL Normal 6.2-12.0 [facility] Comment on above: Performed By: #### L 503.6550, L503.6030 #### [facility] [address] [place], [address] Platelets (Bld) [#/Vol] 507 10*3/uL High 150-450 [facility] Comment on above: Performed By: #### L 503.6550, L503.6030 #### [facility] [address] [place], [address] RBC (Bld) [#/Vol] 3.93 10*6/uL Low 4.2-5.4 [facility] Comment on above: Performed By: #### L 503.6550, L503.6030 #### [facility] [address] [place], [address] RDW SD 52.2 fl High 35.1-43.9 [facility] Comment on above: Performed By: #### L 503.6550, L503.6030 #### [facility] [address] [place], [address] WBC (Bld) [#/Vol] 9.5 10*3/uL Normal 4.4-11.0 [facility] Comment on above: Performed By: #### L 503.6550, L503.6030 #### [facility] [address] [place], [address] Carbon dioxide, total [Moles /volume] in Central venous bloodOrdered By: Anselmo Gallagher on 11-12-2024 CO2 [Moles/Vol] 26.2 mmol/L 21.0-32.0 [facility] Chloride assayOrdered By: Tessy Gallagher on 11-12-2024 Chloride [Moles/Vol] 102 mmol/L 98-108 [facility] Comprehensive Metabolic Prof ilon 11-12-2024 Albumin [Mass/Vol] 3.5 g/dL Normal 3.4-4.8 [facility] Comment on above: Performed By: #### L 501.5200, L503.6030, L503.0106, L3100.1725, L500.4050 #### [facility] [address] [place], [address] Albumin/Globulin [Mass ratio] 0.9 {ratio} Normal 0.9-2.4 [facility] Comment on above: Performed By: #### L 501.5200, L503.6030, L503.0106, L3100.1725, L500.4050 #### [facility] [address] [place], [address] ALK PHOS 74 U/L Normal 35-104 [facility] Comment on above: Performed By: #### L 501.5200, L503.6030, L503.0106, L3100.1725, L500.4050 #### [facility] [address] [place], [address] ALT [Catalytic activity/Vol] 5 U/L Normal <=34 [facility] Comment on above: Performed By: #### L 501.5200, L503.6030, L503.0106, L3100.1725, L500.4050 #### [facility] [address] [place], [address] AST [Catalytic activity/Vol] 7 U/L Normal <=31 [facility] Comment on above: Performed By: #### L 501.5200, L503.6030, L503.0106, L3100.1725, L500.4050 #### [facility] [address] [place], [address] Bilirubin [Mass/Vol] 0.33 mg/dL Normal 0.00-1.30 [facility] Comment on above: Performed By: #### L 501.5200, L503.6030, L503.0106, L3100.1725, L500.4050 #### [facility] [address] [place], [address] BUN/CRE 11.3 RATIO Normal 10-20 [facility] Comment on above: Performed By: #### L 501.5200, L503.6030, L503.0106, L3100.1725, L500.4050 #### [facility] [address] [place], [address] Calcium [Mass/Vol] 9.7 mg/dL Normal 7.6-11.0 [facility] Comment on above: Performed By: #### L 501.5200, L503.6030, L503.0106, L3100.1725, L500.4050 #### [facility] [address] [place], [address] Chloride [Moles/Vol] 102 mmol/L Normal 98-108 [facility] Comment on above: Performed By: #### L 501.5200, L503.6030, L503.0106, L3100.1725, L500.4050 #### [facility] [address] [place], [address] CO2 [Moles/Vol] 26.2 mmol/L Normal 21.0-32.0 [facility] Comment on above: Performed By: #### L 501.5200, L503.6030, L503.0106, L3100.1725, L500.4050 #### [facility] [address] [place], [address] Creatinine [Mass/Vol] 0.93 mg/dL Normal 0.70-1.20 [facility] Comment on above: Performed By: #### L 501.5200, L503.6030, L503.0106, L3100.1725, L500.4050 #### [facility] [address] [place], [address] GAP 11 Normal 5-15 [facility] Comment on above: Performed By: #### L 501.5200, L503.6030, L503.0106, L3100.1725, L500.4050 #### [facility] [address] [place], [address] GFR/1.73 sq M.predicted among non-blacks MDRD (S/P/Bld) [Vol rate/Area] 67 mL/min/{1.73_m2} Normal >60 [facility] Comment on above: Result Comment: mL/m in/1.73m2 CKD-EPI Creatinine Equation (2020) Performed By: #### L 501.5200, L503.6030, L503.0106, L3100.1725, L500.4050 #### [facility] [address] [place], [address] Globulin (S) [Mass/Vol] 4.0 g/dL Normal 2.2-4.2 [facility] Comment on above: Performed By: #### L 501.5200, L503.6030, L503.0106, L3100.1725, L500.4050 #### [facility] [address] [place], [address] Glucose [Mass/Vol] 252 mg/dL High 70-99 [facility] Comment on above: Performed By: #### L 501.5200, L503.6030, L503.0106, L3100.1725, L500.4050 #### [facility] [address] [place], [address] Potassium [Moles/Vol] 3.9 mmol/L Normal 3.3-5.1 [facility] Comment on above: Performed By: #### L 501.5200, L503.6030, L503.0106, L3100.1725, L500.4050 #### [facility] [address] [place], [address] Sodium [Moles/Vol] 139 mmol/L Normal 133-145 [facility] Comment on above: Performed By: #### L 501.5200, L503.6030, L503.0106, L3100.1725, L500.4050 #### [facility] [address] [place], [address] T PROT 7.5 g/dL Normal 5.9-8.4 [facility] Comment on above: Performed By: #### L 501.5200, L503.6030, L503.0106, L3100.1725, L500.4050 #### [facility] [address] [place], [address] Urea nitrogen [Mass/Vol] 11 mg/dL Normal 4-19 [facility] Comment on above: Performed By: #### L 501.5200, L503.6030, L503.0106, L3100.1725, L500.4050 #### [facility] [address] [place], [address] Eosinophil percentageOrdered By: Anselmo Gallagher on 11-12-2024 Eosinophils/100 WBC (Bld) 1.8 % 0-5 [facility] Erythrocyte Sed Rateon 11-12 SED RATE 73 mm/hr High 0-30 [facility] Comment on above: Performed By: #### L 503.6550, L503.6030 #### [facility] [address] [place], [address] Erythrocyte distribution wid th ratioOrdered By: Anselmo Gallagher on 11-12-2024 Erythrocyte distribution width (RBC) [Ratio] 17.0 % High 11.6-14.6 [facility] Erythrocyte distribution wid th standard deviationOrdered By: Anselmo Gallagher on 11-12-2024 Erythrocyte distribution width (RBC) [Ratio] 52.2 fl High 35.1-43.9 [facility] Erythrocyte folate measureme nt with hematocritOrdered By: Anselmo Gallagher on 11-12-2024 Hematocrit (Bld) [Volume fraction] 33.5 % Low 34.0-46.6 [facility] Erythrocyte sedimentation ra teOrdered By: Anselmo Gallagher on 11-12-2024 ESR (Bld) [Velocity] 73 mm/h High 0-30 [facility] Glomerular filtration rate ( GFR) estimation/1.73 sq m using serum, plasma, or whole bOrdered By: Anselmo Gallagher on 11-12-2024 GFR/1.73 sq M.predicted among non-blacks MDRD (S/P/Bld) [Vol rate/Area] 67 mL/min/{1.73_m2} >60 [facility] Comment on above: mL/min/1.73m2 CKD-EP I Creatinine Equation (2020) Hematocrit Auto (Bld) [Volum e fraction]Ordered By: Anselmo Gallagher on 11-12-2024 Hematocrit (Bld) [Volume fraction] 33.2 % Low 37-47 [facility] Hemoglobin measurementOrdere d By: Anselmo Gallagher on 11-12-2024 Hemoglobin (Bld) [Mass/Vol] 10.2 g/dL Low 12.0-15.0 [facility] Immature granulocytes/100 WB C Auto (Bld)Ordered By: Anselmo Gallagher on 11-12-2024 Immature granulocytes/100 WBC (Bld) 0.200 % 0.0-0.9 [facility] Comment on above: IG% - Immature Granu locytes (promyelocytes, myelocytes and metamyelocytes) > 1% indicates that a LEFT SHIFT is Present. Iron measurement (mass/mass) Ordered By: Anselmo Gallagher on 11-12-2024 Iron (Unsp spec) [Mass/Mass] 22 ug/dL Low 50-170 [facility] Iron+Iron Binding Capacityon 11-12-2024 TIBC 176 ug/dL Low 250-450 [facility] Comment on above: Performed By: #### L 501.5200, L503.6030, L503.0106, L3100.1725, L500.4050 #### [facility] [address] [place], [address] LDHon 11-12-2024 LDH 157 U/L Normal 84-246 [facility] Comment on above: Order Comment: 1 Performed By: #### L 501.5200, L503.6030, L503.0106, L3100.1725, L500.4050 #### [facility] [address] [place], [address] Laboratory - Chemistry and C hemistry - challengeOrdered By: Anselmo Gallagher on 11-12-2024 AST [Catalytic activity/Vol] 7 U/L <32 [facility] Lactate dehydrogenase (LDH) measurementOrdered By: Anselmo Gallahger on 11-12-2024 LDH [Catalytic activity/Vol] 157 U/L 84-246 [facility] MCV (mean corpuscular volume ) determinationOrdered By: Anselmo Gallagher on 11-12-2024 MCV (RBC) [Entitic vol] 84.5 fL 81-99 [facility] Magnesiumon 11-12-2024 Magnesium [Mass/Vol] 2.1 mg/dL Normal 1.5-2.2 [facility] Comment on above: Performed By: #### L 501.5200, L503.6030, L503.0106, L3100.1725, L500.4050 #### [facility] [address] [place], [address] Magnesium measurement (mass/ volume)Ordered By: Anselmo Gallagher on 11-12-2024 Magnesium (Unsp spec) [Mass/Vol] 2.1 mg/dL 1.5-2.2 [facility] Mean corpuscular hemoglobin (MCH) determinationOrdered By: Anselmo Gallagher on 11-12-2024 MCH (RBC) [Entitic mass] 26.0 pg Low 27.0-32.0 [facility] Mean corpuscular hemoglobin concentration (MCHC) determinationOrdered By: Anselmo Gallagher on 11-12-2024 MCHC (RBC) [Mass/Vol] 30.7 g/dL Low 32-36 [facility] Mean platelet volume determi nationOrdered By: Anselmo Gallagher on 11-12-2024 Platelet mean volume (Bld) [Entitic vol] 9.9 fL 6.2-12.0 [facility] Monocyte percentageOrdered B y: Anselmo Gallagher on 11-12-2024 Monocytes/100 WBC (Bld) 6.7 % 0-10 [facility] Neutrophil percentageOrdered By: Anselmo Gallagher on 11-12-2024 Neutrophils/100 WBC (Bld) 70.8 % High 47-70 [facility] No Panel InformationOrdered By: Anselmo Gallagher on 11-12-2024 Unsaturated Iron Binding Capacity 154 ug/dL Low 228-428 [facility] Nucleated red blood cell per centageOrdered By: Anselmo Gallagher on 11-12-2024 Nucleated RBC/100 WBC (Bld) [Ratio] 0 % 0-5 [facility] Phosphoruson 11-12-2024 Phosphate [Mass/Vol] 2.3 mg/dL Low 2.7-4.5 [facility] Comment on above: Performed By: #### L 503.6550, L503.6030 #### [facility] [address] [place], [place] [address], [address] Platelet countOrdered By: Tessy Gallagher on 11-12-2024 Platelets (Bld) [#/Vol] 507 10*3/uL High 150-450 [facility] Potassium measurement (mass/ volume)Ordered By: Anselmo Gallagher on 11-12-2024 Potassium (Unsp spec) [Mass/Vol] 3.9 mmol/L 3.3-5.1 [facility] RBC Auto (Bld) [#/Vol]Ordere d By: Anselmo Gallagher on 11-12-2024 RBC (Bld) [#/Vol] 3.93 10*6/uL Low 4.2-5.4 [facility] Retic Panelon 11-12-2024 IM RET FRACTION 21.40 High 3.00-15.90 [facility] Comment on above: Performed By: #### L 503.6550, L503.6030 #### [facility] [address] [place], [place], [address] RET-HE 24.5 pg Low 30-35 [facility] Comment on above: Performed By: #### L 5036550, L503.6030 #### [facility] [address] [place], [place], [address] Retic Count 1.66 High 0.5-1.5 [facility] Comment on above: Performed By: #### L 5036592, L503.6046 #### [facility] [address] [place], [place], [address] Reticulocyte hemoglobin equi valent (RET-He) measurementOrdered By: Anselmo Gallagher on 11-12-2024 Hemoglobin (Reticulocytes) [Entitic mass] 24.5 pg Low 30-35 [facility] Reticulocytes Auto (Bld) [#/ Vol]Ordered By: Anselmo Gallagher on 11-12-2024 Reticulocytes/100 RBC (Bld) 1.66 % High 0.5-1.5 [facility] Serum creatinine measurement (mass/volume)Ordered By: Anselmo Gallagher on 11-12-2024 Creatinine [Mass/Vol] 0.93 mg/dL 0.70-1.20 [facility] Serum globulin measurementOr dered By: Anselmo Gallagher on 11-12-2024 Globulin (S) [Mass/Vol] 4.0 g/dL 2.2-4.2 [facility] Serum glucose measurement (m ass/volume)Ordered By: Anselmo Gallagher on 11-12-2024 Glucose [Mass/Vol] 252 mg/dL High 70-99 [facility] Serum or plasma alanine lloyd otransferase (ALT) measurementOrdered By: Anselmo Gallagher on 11-12-2024 ALT [Catalytic activity/Vol] 5 U/L <35 [facility] Serum or plasma albumin akanksha urement (mass/volume)Ordered By: Anselmo Gallagher on 11-12-2024 Albumin [Mass/Vol] 3.5 g/dL 3.4-4.8 [facility] Serum or plasma albumin/glob ulin mass ratioOrdered By: Anselmo Gallagher on 11-12-2024 Albumin/Globulin [Mass ratio] 0.9 {ratio} 0.9-2.4 [facility] Serum or plasma alkaline fern sphatase measurementOrdered By: Anselmo Gallagher on 11-12-2024 ALP [Catalytic activity/Vol] 74 U/L 35-104 [facility] Serum or plasma calcium akanksha urement (mass/volume)Ordered By: Anselmo Gallagher on 11-12-2024 Calcium [Mass/Vol] 9.7 mg/dL 7.6-11.0 [facility] Serum or plasma erythropoiet in (EPO) measurement (units/volume)Ordered By: Anselmo Gallagher on 11-12-2024 Erythropoietin (EPO) Qn 43.8 mIU/mL High 2.6-18.5 [facility] Comment on above: Soundsupply el DxI 800 Immunoassay SystemValues obtained with different assay methods or kits cannotbe used interchangeably. Results cannot be interpreted asabsolute evidence of the presence or absence of malignantdisease.Performed at: [facility] [id number] Director: Regan Bird PhD, Phone: [phone] Serum or plasma iron saturat ion measurement (mass fraction)Ordered By: Anselmo Gallagher on 11-12-2024 Iron saturation [Mass fraction] 12.5 % Low 13-59 [facility] Comment on above: Previous reported re sult: 12.0 %Edited by: OTTONIEL on 11/12/24:1100 AMENDED REPORT 11/12/24 1100 IRON SATURATION previously reported as: 12.0 L % Serum or plasma urea nitroge n measurement (mass/volume)Ordered By: Anselmo Gallagher on 11-12-2024 Urea nitrogen [Mass/Vol] 11 mg/dL 4-19 [facility] Sodium levelOrdered By: Osiel Gallagher on 11-12-2024 Sodium [Moles/Vol] 139 mmol/L 133-145 [facility] Total proteinOrdered By: Herman Gallagher on 11-12-2024 Protein [Mass/Vol] 7.5 g/dL 5.9-8.4 [facility] Vitamin B12on 11-12-2024 Cobalamin (Vitamin B12) [Mass/Vol] 386 pg/mL Normal 180-914 [facility] Comment on above: Performed By: #### L 501.5200, L503.6030, L503.0106, L3100.1725, L500.4050 #### [facility] [address] [place], [address] Vitamin B12 ser/plasOrdered By: Anselmo Gallagher on 11-12-2024 Cobalamin (Vitamin B12) [Mass/Vol] 386 pg/mL 180-914 [facility] White blood cell (WBC) count Ordered By: Anselmo Gallagher on 11-12-2024 WBC (Bld) [#/Vol] 9.5 10*3/uL 4.4-11.0 [facility] Internal Medicine Office Vis iton 11-04-2024 Internal Medicine Office Visit [facility] [address] [place], [place] [address] OFFICE VISIT Date of Service: 11/04/24 MR#: [id number] Acct: [id number] Name: KIRILL ALMAZAN Rep #: [id number] : 1955 Provider: Dr. 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 Normal [facility] Breast imaging reportOrdered By: Leeann Enriquez on 09-25-2024 Study report [facility] Imaging Services [address] [place] [address] SCRN MAMM (CAD)W/CHRISJason MARQUEZ MR#: [id number] Acct: [id number] Name: KIRILL ALMAZAN EMMANUEL Rep #: [id number] : 1955 F 69 From: Torrie Enriquez MD PCP: Dr. Maricarmen Tavares MD Status: R EG CLI Study:SCRN MAMM (CAD)W/CHRIS BILAT Date of Exa m: 09/25/24 Exam# [id number] Ordering Dr: Davidson Metz i, MD EXAM: [...] be mailed to the patient. Reading Location: [facility] CC: Dr. Maricarmen Tavares MD; Dr. Steve Metz MD ~ Ase Certified Technician: Signed [facility] SCRN MAMM (CAD)W/CHRIS BILATo n 09-25-2024 SCRN MAMM (CAD)W/CHRIS BILAT [facility] Imaging Services [address] [place] [address] SCRN MAMM (CAD)W/CHRIS BILAT MR#: [id number] Acct: [id number] Name: KIRILL ALMAZAN EMMANUEL Rep #: [id number] : 1955 F 69 From: Leeann Enriquez MD PCP: Dr. Maricarmen Tavares MD Status: REG CLI Study: SCRN MAMM (CAD)W/CHRIS BILAT Date of Exam: 09/08 11/02 Exam# [id number] Ordering Dr: Steve Metz MD EXAM: SCRN [...] be mailed to the patient. Reading Location: [facility] CC: Dr. Maricarmen Tavares MD; Dr. Steve Metz MD Ase Certified Technician: Signed Normal [facility] Erythropoietinon 09-17-2024 ERYTHROPOIETIN 46.6 mIU/mL High 2.6-18.5 [facility] Comment on above: Result Comment: Güdpodel DxI 800 Immunoassay System Values obtained with different assay methods or kits cannot be used interchangeably. Results cannot be interpreted as absolute evidence of the presence or absence of malignant disease. Performed at: [address] [id number] [employer] Maker: Regan Bird PhD, Phone: [phone] Performed By: #### L 5015200, L503.6030, L503.0106, L3100.1725, L500.4050 #### [facility] [address] [place], [address] Folates, RBCon 09-17-2024 Fol.,Hemolysate 464.0 ng/mL Normal Not Estab. [facility] Comment on above: Performed By: #### L 501.5200, L503.6030, L503.0106, L3100.1725, L500.4050 #### [facility] [address] [place], [address] Folate, RBC 1385 ng/mL Normal >498 [facility] Comment on above: Result Comment: Perf ormed at: [facility] [address] [id number] [employer] Maker: Regan Bird PhD, Phone: [phone] Performed By: #### L 501.5200, L503.6030, L503.0106, L3100.1725, L500.4050 #### [facility] [address] [place], [address] Hematocrit (Bld) [Volume fraction] 33.5 % Low 34.0-46.6 [facility] Comment on above: Performed By: #### L 501.5200, L503.6030, L503.0106, L3100.1725, L500.4050 #### [facility] [address] [place], [address] Iron+Iron Binding Capacityon 09-16-2024 TIBC 208 ug/dL Low 250-450 [facility] Comment on above: Performed By: #### L 501.5200, L503.6030, L503.0106, L3100.1725, L500.4050 #### [facility] [address] [place], [address] LDHon 09-16-2024 LDH 150 U/L Normal 84-246 [facility] Comment on above: Order Comment: 1 Performed By: #### L 501.5200, L503.6030, L503.0106, L3100.1725, L500.4050 #### [facility] [address] [place], [address] Absolute lymphocyte countOrd ered By: Anselmo Gallagher on 09-15-2024 Lymphocytes Auto (Unsp spec) [#/Vol] 2.53 10*3/uL 0.83-4.51 [facility] Absolute neutrophil countOrd ered By: Anselmo Moreljoanne on 09-15-2024 Neutrophils (Bld) [#/Vol] 6.8 10*3/uL 2.0-7.7 [facility] Anion gap in Serum or Plasma Ordered By: Anselmo Gallagher on 09-15-2024 Anion gap [Moles/Vol] 13 mmol/L 5-15 [facility] Automated lymphocyte count a s percentage of total leukocytesOrdered By: Anselmo Gallagher on 09-15-2024 Lymphocytes/100 WBC Auto (Unsp spec) 24.2 % 19- [facility] BUN/creatinine ratioOrdered By: [facility] on 09-15-2024 Urea nitrogen/Creatinine [Mass ratio] 16.7 mg/mg 10-20 [facility] Basophil percentageOrdered B y: Anselmo Gallagher on 09-15-2024 Basophils/100 WBC (Bld) 0.4 % 0-1 [facility] Bilirubin, totalOrdered By: Anselmo Gallagher on 09-15-2024 Bilirubin [Mass/Vol] 0.23 mg/dL 0.00-1.30 [facility] CBC W/Diff, Automatedon 07-0 Absolute Lymph 2.53 X10 3/uL Normal 0.83-4.51 [facility] Comment on above: Performed By: #### L 501.5200, L503.6030, L503.0106, L3100.1725, L500.4050 #### [facility] [address] [place], [address] Absolute Neut 6.8 X10 3/uL Normal 2.0-7.7 [facility] Comment on above: Performed By: #### L 501.5200, L503.6030, L503.0106, L3100.1725, L500.4050 #### [facility] [address] [place], [address] Basophils/100 WBC (Bld) 0.4 % Normal 0-1 [facility] Comment on above: Performed By: #### L 501.5200, L503.6030, L503.0106, L3100.1725, L500.4050 #### [facility] [address] [place], [address] Eosinophils/100 WBC (Bld) 1.3 % Normal 0-5 [facility] Comment on above: Performed By: #### L 501.5200, L503.6030, L503.0106, L3100.1725, L500.4050 #### [facility] [address] [place], [address] Erythrocyte distribution width (RBC) [Ratio] 16.4 % High 11.6-14.6 [facility] Comment on above: Performed By: #### L 501.5200, L503.6030, L503.0106, L3100.1725, L500.4050 #### [facility] [address] [place], [address] Hematocrit (Bld) [Volume fraction] 33.2 % Low 37-47 [facility] Comment on above: Performed By: #### L 501.5200, L503.6030, L503.0106, L3100.1725, L500.4050 #### [facility] [address] [place], [address] Hemoglobin (Bld) [Mass/Vol] 10.2 g/dL Low 12.0-15.0 [facility] Comment on above: Performed By: #### L 501.5200, L503.6030, L503.0106, L3100.1725, L500.4050 #### [facility] [address] [place], [address] IG% 0.400 Normal 0.0-0.9 [facility] Comment on above: Result Comment: IG% - Immature Granulocytes (promyelocytes, myelocytes and metamyelocytes) > 1% indicates that a LEFT SHIFT is Present. Performed By: #### L 501.5200, L503.6030, L503.0106, L3100.1725, L500.4050 #### [facility] [address] [place], [address] Lymphocytes/100 WBC (Bld) 24.2 % Normal 19-41 [facility] Comment on above: Performed By: #### L 501.5200, L503.6030, L503.0106, L3100.1725, L500.4050 #### [facility] [address] [place], [address] MCH (RBC) [Entitic mass] 26.1 pg Low 27.0-32.0 [facility] Comment on above: Performed By: #### L 501.5200, L503.6030, L503.0106, L3100.1725, L500.4050 #### [facility] [address] [place], [address] MCHC (RBC) [Mass/Vol] 30.7 g/dL Low 32-36 [facility] Comment on above: Performed By: #### L 501.5200, L503.6030, L503.0106, L3100.1725, L500.4050 #### [facility] [address] [place], [address] MCV (RBC) [Entitic vol] 84.9 fL Normal 81-99 [facility] Comment on above: Performed By: #### L 501.5200, L503.6030, L503.0106, L3100.1725, L500.4050 #### [facility] [address] [place], [address] Monocytes/100 WBC (Bld) 8.3 % Normal 0-10 [facility] Comment on above: Performed By: #### L 501.5200, L503.6030, L503.0106, L3100.1725, L500.4050 #### [facility] [address] [place], [address] Neutrophils/100 WBC (Bld) 65.4 % Normal 47-70 [facility] Comment on above: Performed By: #### L 501.5200, L503.6030, L503.0106, L3100.1725, L500.4050 #### [facility] [address] [place], [address] Nucleated RBC (Bld) [#/Vol] 0 10*3/uL Normal 0-5 [facility] Comment on above: Performed By: #### L 501.5200, L503.6030, L503.0106, L3100.1725, L500.4050 #### [facility] [address] [place], [address] Platelet mean volume (Bld) [Entitic vol] 10.2 fL Normal 6.2-12.0 [facility] Comment on above: Performed By: #### L 501.5200, L503.6030, L503.0106, L3100.1725, L500.4050 #### [facility] [address] [place], [address] Platelets (Bld) [#/Vol] 495 10*3/uL High 150-450 [facility] Comment on above: Performed By: #### L 501.5200, L503.6030, L503.0106, L3100.1725, L500.4050 #### [facility] [address] [place], [address] RBC (Bld) [#/Vol] 3.91 10*6/uL Low 4.2-5.4 [facility] Comment on above: Performed By: #### L 501.5200, L503.6030, L503.0106, L3100.1725, L500.4050 #### [facility] [address] [place], [address] RDW SD 51.0 fl High 35.1-43.9 [facility] Comment on above: Performed By: #### L 501.5200, L503.6030, L503.0106, L3100.1725, L500.4050 #### [facility] [address] [place], [address] WBC (Bld) [#/Vol] 10.4 10*3/uL Normal 4.4-11.0 [facility] Comment on above: Performed By: #### L 501.5200, L503.6030, L503.0106, L3100.1725, L500.4050 #### [facility] [address] [place], [address] Carbon dioxide, total [Moles /volume] in Central venous bloodOrdered By: Anselmo Gallagher on 09-15-2024 CO2 [Moles/Vol] 24.6 mmol/L 21.0-32.0 [facility] Chloride assayOrdered By: Tessy Gallagher on 09-15-2024 Chloride [Moles/Vol] 101 mmol/L 98-108 [facility] Comprehensive Metabolic Prof ilon 09-15-2024 Albumin [Mass/Vol] 3.6 g/dL Normal 3.4-4.8 [facility] Comment on above: Performed By: #### L 501.5200, L503.6030, L503.0106, L3100.1725, L500.4050 #### [facility] [address] [place], [address] Albumin/Globulin [Mass ratio] 0.8 {ratio} Low 0.9-2.4 [facility] Comment on above: Performed By: #### L 501.5200, L503.6030, L503.0106, L3100.1725, L500.4050 #### [facility] [address] [place], [address] ALK PHOS 87 U/L Normal 35-104 [facility] Comment on above: Performed By: #### L 501.5200, L503.6030, L503.0106, L3100.1725, L500.4050 #### [facility] [address] [place], [address] ALT [Catalytic activity/Vol] 11 U/L Normal <=34 [facility] Comment on above: Performed By: #### L 501.5200, L503.6030, L503.0106, L3100.1725, L500.4050 #### [facility] [address] [place], [address] AST [Catalytic activity/Vol] 14 U/L Normal <=31 [facility] Comment on above: Performed By: #### L 501.5200, L503.6030, L503.0106, L3100.1725, L500.4050 #### [facility] [address] [place], [address] Bilirubin [Mass/Vol] 0.23 mg/dL Normal 0.00-1.30 [facility] Comment on above: Performed By: #### L 501.5200, L503.6030, L503.0106, L3100.1725, L500.4050 #### [facility] [address] [place], [address] BUN/CRE 16.7 RATIO Normal 10-20 [facility] Comment on above: Performed By: #### L 501.5200, L503.6030, L503.0106, L3100.1725, L500.4050 #### [facility] [address] [place], [address] Calcium [Mass/Vol] 9.9 mg/dL Normal 7.6-11.0 [facility] Comment on above: Performed By: #### L 501.5200, L503.6030, L503.0106, L3100.1725, L500.4050 #### [facility] [address] [place], [address] Chloride [Moles/Vol] 101 mmol/L Normal 98-108 [facility] Comment on above: Performed By: #### L 501.5200, L503.6030, L503.0106, L3100.1725, L500.4050 #### [facility] [address] [place], [address] CO2 [Moles/Vol] 24.6 mmol/L Normal 21.0-32.0 [facility] Comment on above: Performed By: #### L 501.5200, L503.6030, L503.0106, L3100.1725, L500.4050 #### [facility] [address] [place], [address] Creatinine [Mass/Vol] 1.01 mg/dL Normal 0.70-1.20 [facility] Comment on above: Performed By: #### L 501.5200, L503.6030, L503.0106, L3100.1725, L500.4050 #### [facility] [address] [place], [address] GAP 13 Normal 5-15 [facility] Comment on above: Performed By: #### L 501.5200, L503.6030, L503.0106, L3100.1725, L500.4050 #### [facility] [address] [place], [address] GFR/1.73 sq M.predicted among non-blacks MDRD (S/P/Bld) [Vol rate/Area] 61 mL/min/{1.73_m2} Normal >60 [facility] Comment on above: Result Comment: mL/m in/1.73m2 CKD-EPI Creatinine Equation (2020) Performed By: #### L 501.5200, L503.6030, L503.0106, L3100.1725, L500.4050 #### [facility] [address] [place], [address] Globulin (S) [Mass/Vol] 4.2 g/dL Normal 2.2-4.2 [facility] Comment on above: Performed By: #### L 501.5200, L503.6030, L503.0106, L3100.1725, L500.4050 #### [facility] [address] [place], [address] Glucose [Mass/Vol] 140 mg/dL High 70-99 [facility] Comment on above: Performed By: #### L 501.5200, L503.6030, L503.0106, L3100.1725, L500.4050 #### [facility] [address] [place], [address] Potassium [Moles/Vol] 4.1 mmol/L Normal 3.3-5.1 [facility] Comment on above: Performed By: #### L 501.5200, L503.6030, L503.0106, L3100.1725, L500.4050 #### [facility] [address] [place], [address] Sodium [Moles/Vol] 138 mmol/L Normal 133-145 [facility] Comment on above: Performed By: #### L 501.5200, L503.6030, L503.0106, L3100.1725, L500.4050 #### [facility] [address] [place], [address] T PROT 7.8 g/dL Normal 5.9-8.4 [facility] Comment on above: Performed By: #### L 501.5200, L503.6030, L503.0106, L3100.1725, L500.4050 #### [facility] [address] [place], [address] Urea nitrogen [Mass/Vol] 17 mg/dL Normal 4-19 [facility] Comment on above: Performed By: #### L 501.5200, L503.6030, L503.0106, L3100.1725, L500.4050 #### [facility] [address] [place], [address] Eosinophil percentageOrdered By: Anselmo Gallagher on 09-15-2024 Eosinophils/100 WBC (Bld) 1.3 % 0-5 [facility] Erythrocyte Sed Rateon 09-15 SED RATE 94 mm/hr High 0-30 [facility] Comment on above: Performed By: #### L 501.5200, L503.6030, L503.0106, L3100.1725, L500.4050 #### [facility] [address] [place], [place], [address] Erythrocyte distribution wid th ratioOrdered By: Anselmo Gallagher on 09-15-2024 Erythrocyte distribution width (RBC) [Ratio] 16.4 % High 11.6-14.6 [facility] Erythrocyte distribution wid th standard deviationOrdered By: Camby Elliott on 09-15-2024 Erythrocyte distribution width (RBC) [Ratio] 51.0 fl High 35.1-43.9 [facility] Erythrocyte folate measureme nt with hematocritOrdered By: Anselmo Gallagher on 09-15-2024 Hematocrit (Bld) [Volume fraction] 33.5 % Low 34.0-46.6 [facility] Erythrocyte sedimentation ra teOrdered By: Anselmo Gallagher on 09-15-2024 ESR (Bld) [Velocity] 94 mm/h High 0-30 [facility] Ferritinon 09-15-2024 Ferritin [Mass/Vol] 866 ng/mL High 22-378 [facility] Comment on above: Performed By: #### L 501.5200, L503.6030, L503.0106, L3100.1725, L500.4050 #### [facility] [address] [place], [address] Glomerular filtration rate ( GFR) estimation/1.73 sq m using serum, plasma, or whole bOrdered By: Anselmo Gallagher on 09-15-2024 GFR/1.73 sq M.predicted among non-blacks MDRD (S/P/Bld) [Vol rate/Area] 61 mL/min/{1.73_m2} >60 [facility] Comment on above: mL/min/1.73m2 CKD-EP I Creatinine Equation (2020) Hematocrit Auto (Bld) [Volum e fraction]Ordered By: Anselmo Gallagher on 09-15-2024 Hematocrit (Bld) [Volume fraction] 33.2 % Low 37-47 [facility] Hemoglobin measurementOrdere d By: Anselmo Gallagher on 09-15-2024 Hemoglobin (Bld) [Mass/Vol] 10.2 g/dL Low 12.0-15.0 [facility] Immature granulocytes/100 WB C Auto (Bld)Ordered By: Anselmo Gallagher on 09-15-2024 Immature granulocytes/100 WBC (Bld) 0.400 % 0.0-0.9 [facility] Comment on above: IG% - Immature Granu locytes (promyelocytes, myelocytes and metamyelocytes) > 1% indicates that a LEFT SHIFT is Present. Iron measurement (mass/mass) Ordered By: Anselmo Gallagher on 09-15-2024 Iron (Unsp spec) [Mass/Mass] 21 ug/dL Low 50-170 [facility] - Chemistry and C hemistry - challengeOrdered By: Anselmo Gallagher on 09-15-2024 AST [Catalytic activity/Vol] 14 U/L <32 [facility] Lactate dehydrogenase (LDH) measurementOrdered By: Anselmo Elliott on 09-15-2024 LDH [Catalytic activity/Vol] 150 U/L 84-246 [facility] MCV (mean corpuscular volume ) determinationOrdered By: Anselmo Morel on 09-15-2024 MCV (RBC) [Entitic vol] 84.9 fL 81-99 [facility] Magnesiumon 09-15-2024 Magnesium [Mass/Vol] 2.3 mg/dL High 1.5-2.2 [facility] Comment on above: Performed By: #### L 501.5200, L503.6030, L503.0106, L3100.1725, L500.4050 #### [facility] [address] [place], [address] Magnesium measurement (mass/ volume)Ordered By: Anselmo Gallagher on 09-15-2024 Magnesium (Unsp spec) [Mass/Vol] 2.3 mg/dL High 1.5-2.2 [facility] Mean corpuscular hemoglobin (MCH) determinationOrdered By: Anselmo Gallagher on 09-15-2024 MCH (RBC) [Entitic mass] 26.1 pg Low 27.0-32.0 [facility] Mean corpuscular hemoglobin concentration (MCHC) determinationOrdered By: Anselmo Gallagher on 09-15-2024 MCHC (RBC) [Mass/Vol] 30.7 g/dL Low 32-36 [facility] Mean platelet volume determi nationOrdered By: Anselmo Gallagher on 09-15-2024 Platelet mean volume (Bld) [Entitic vol] 10.2 fL 6.2-12.0 [facility] Monocyte percentageOrdered B y: Anselmo Gallagher on 09-15-2024 Monocytes/100 WBC (Bld) 8.3 % 0-10 [facility] Neutrophil percentageOrdered By: Anselmo Gallagher on 09-15-2024 Neutrophils/100 WBC (Bld) 65.4 % 47-70 [facility] No Panel InformationOrdered By: Anselmo Gallagher on 09-15-2024 Unsaturated Iron Binding Capacity 187 ug/dL Low 228-428 [facility] Nucleated red blood cell per centageOrdered By: Anselmo Gallagher on 09-15-2024 Nucleated RBC/100 WBC (Bld) [Ratio] 0 % 0-5 [facility] Oncology Visit Reporton 07-0 Oncology Visit Report [facility] [address] [place] [address] OFFICE VISIT Date of Service: 09/15/24 1318 MR#: [id number] Acct: [id number] Name: KIRILL ALMZAAN EMMANUEL Rep #: [id number] : 1955 From: Anselmo Gallagher MD Age/Sex: 69/F Location: [facility] Status: Signed HPI Subjective Date of Service [...] has not taken oral iron pills. [facility] Medical History Iron deficiency anemia Anemia Chronic [...] ???Confirmed ? (more content not included)... Normal [facility] Phosphoruson 09-15-2024 Phosphate [Mass/Vol] 3.2 mg/dL Normal 2.7-4.5 [facility] Comment on above: Performed By: #### L 501.5200, L503.6030, L503.0106, L3100.1725, L500.4050 #### [facility] [address] [place], [address] Platelet countOrdered By: Tessy Gallagher on 09-15-2024 Platelets (Bld) [#/Vol] 495 10*3/uL High 150-450 [facility] Potassium measurement (mass/ volume)Ordered By: Anselmo Gallagher on 09-15-2024 Potassium (Unsp spec) [Mass/Vol] 4.1 mmol/L 3.3-5.1 [facility] RBC Auto (Bld) [#/Vol]Ordere d By: Anselmo Gallagher on 09-15-2024 RBC (Bld) [#/Vol] 3.91 10*6/uL Low 4.2-5.4 [facility] Retic Panelon 09-15-2024 IM RET FRACTION 17.50 High 3.00-15.90 [facility] Comment on above: Performed By: #### L 501.5200, L503.6030, L503.0106, L3100.1725, L500.4050 #### [facility] [address] [place], [address] RET-HE 26.2 pg Low 30-35 [facility] Comment on above: Performed By: #### L 501.5200, L503.6030, L503.0106, L3100.1725, L500.4050 #### [facility] [address] [place], [address] Retic Count 1.34 Normal 0.5-1.5 [facility] Comment on above: Performed By: #### L 501.5200, L503.6030, L503.0106, L3100.1725, L500.4050 #### [facility] [address] [place], [address] Reticulocyte hemoglobin equi valent (RET-He) measurementOrdered By: Anselmo Gallagher on 09-15-2024 Hemoglobin (Reticulocytes) [Entitic mass] 26.2 pg Low 30-35 [facility] Reticulocytes Auto (Bld) [#/ Vol]Ordered By: Anselmo Gallagher on 09-15-2024 Reticulocytes/100 RBC (Bld) 1.34 % 0.5-1.5 [facility] Serum creatinine measurement (mass/volume)Ordered By: Anselmo Gallagher on 09-15-2024 Creatinine [Mass/Vol] 1.01 mg/dL 0.70-1.20 [facility] Serum globulin measurementOr dered By: Anselmo Gallagher on 09-15-2024 Globulin (S) [Mass/Vol] 4.2 g/dL 2.2-4.2 [facility] Serum glucose measurement (m ass/volume)Ordered By: Anselmo Gallagher on 09-15-2024 Glucose [Mass/Vol] 140 mg/dL High 70-99 [facility] Serum or plasma alanine lloyd otransferase (ALT) measurementOrdered By: Anselmo Gallagher on 09-15-2024 ALT [Catalytic activity/Vol] 11 U/L <35 [facility] Serum or plasma albumin akanksha urement (mass/volume)Ordered By: Anselmo Gallagher on 09-15-2024 Albumin [Mass/Vol] 3.6 g/dL 3.4-4.8 [facility] Serum or plasma albumin/glob ulin mass ratioOrdered By: Anselmo Gallagher on 09-15-2024 Albumin/Globulin [Mass ratio] 0.8 {ratio} Low 0.9-2.4 [facility] Serum or plasma alkaline fern sphatase measurementOrdered By: Anselmo Gallagher on 09-15-2024 ALP [Catalytic activity/Vol] 87 U/L 35-104 [facility] Serum or plasma calcium akanksha urement (mass/volume)Ordered By: Anselmo Gallagher on 09-15-2024 Calcium [Mass/Vol] 9.9 mg/dL 7.6-11.0 [facility] Serum or plasma erythropoiet in (EPO) measurement (units/volume)Ordered By: Anselmo Gallagher on 09-15-2024 Erythropoietin (EPO) Qn 46.6 mIU/mL High 2.6-18.5 [facility] Comment on above: Soundsupply el DxI 800 Immunoassay SystemValues obtained with different assay methods or kits cannotbe used interchangeably. Results cannot be interpreted asabsolute evidence of the presence or absence of malignantdisease.Performed at: - [facility] [id number] [place], [place] [id number] Director: Regan Bird PhD, Phone: [phone] Serum or plasma ferritin chantel surement (mass/volume)Ordered By: Anselmo Gallagher on 09-15-2024 Ferritin [Mass/Vol] 866 ng/mL High 22-378 [facility] Serum or plasma iron saturat ion measurement (mass fraction)Ordered By: Anselmo Gallagher on 09-15-2024 Iron saturation [Mass fraction] 10.1 % Low 13-59 [facility] Comment on above: Previous reported re sult: 10.0 %Edited by: HUSSEIN on 09/16/24:183 AMENDED REPORT 09/16/241838 IRON SATURATION previously reported as: 10.0 L % Serum or plasma urea nitroge n measurement (mass/volume)Ordered By: Anselmo Gallagher on 09-15-2024 Urea nitrogen [Mass/Vol] 17 mg/dL 4-19 [facility] Sodium levelOrdered By: Osiel Gallagher on 09-15-2024 Sodium [Moles/Vol] 138 mmol/L 133-145 [facility] Total proteinOrdered By: Herman Gallagher on 09-15-2024 Protein [Mass/Vol] 7.8 g/dL 5.9-8.4 [facility] Vitamin B12on 09-15-2024 Cobalamin (Vitamin B12) [Mass/Vol] 500 pg/mL Normal 180-914 [facility] Comment on above: Performed By: #### L 501.5200, L503.6030, L503.0106, L3100.1725, L500.4050 #### [facility] [address] [place], [place] [address]all [facility] [place], [address] Vitamin B12 ser/plasOrdered By: Anselmo Gallagher on 09-15-2024 Cobalamin (Vitamin B12) [Mass/Vol] 500 pg/mL 180-914 [facility] White blood cell (WBC) count Ordered By: Anselmo Gallagher on 09-15-2024 WBC (Bld) [#/Vol] 10.4 10*3/uL 4.4-11.0 [facility] Absolute lymphocyte countOrd ered By: Maricarmen Tavares on 09-09-2024 Lymphocytes Auto (Unsp spec) [#/Vol] 2.41 10*3/uL 0.83-4.51 [facility] Absolute neutrophil countOrd ered By: Maricarmen Tavares on 09-09-2024 Neutrophils (Bld) [#/Vol] 6.6 10*3/uL 2.0-7.7 [facility] Automated lymphocyte count a s percentage of total leukocytesOrdered By: Maricarmen Tavares on 09-09-2024 Lymphocytes/100 WBC Auto (Unsp spec) 23.9 % 19- [facility] Basophil percentageOrdered B y: Maricarmen Tavares on 09-09-2024 Basophils/100 WBC (Bld) 0.4 % 0-1 [facility] CBC W/Diff, Automatedon Absolute Lymph 2.41 X10 3/uL Normal 0.83-4.51 [facility] Comment on above: Performed By: #### L 501.5200, L503.6030, L503.0106, L3100.1725, L500.4050 #### [facility] [address] [place], [address] Absolute Neut 6.6 X10 3/uL Normal 2.0-7.7 [facility] Comment on above: Performed By: #### L 501.5200, L503.6030, L503.0106, L3100.1725, L500.4050 #### [facility] [address] [place], [address] Basophils/100 WBC (Bld) 0.4 % Normal 0-1 [facility] Comment on above: Performed By: #### L 501.5200, L503.6030, L503.0106, L3100.1725, L500.4050 #### [facility] [address] [place], [address] Eosinophils/100 WBC (Bld) 0.9 % Normal 0-5 [facility] Comment on above: Performed By: #### L 501.5200, L503.6030, L503.0106, L3100.1725, L500.4050 #### [facility] [address] [place], [address] Erythrocyte distribution width (RBC) [Ratio] 16.0 % High 11.6-14.6 [facility] Comment on above: Performed By: #### L 501.5200, L503.6030, L503.0106, L3100.1725, L500.4050 #### [facility] [address] [place], [address] Hematocrit (Bld) [Volume fraction] 33.7 % Low 37-47 [facility] Comment on above: Performed By: #### L 501.5200, L503.6030, L503.0106, L3100.1725, L500.4050 #### [facility] [address] [place], [address] Hemoglobin (Bld) [Mass/Vol] 10.1 g/dL Low 12.0-15.0 [facility] Comment on above: Performed By: #### L 501.5200, L503.6030, L503.0106, L3100.1725, L500.4050 #### [facility] [address] [place], [address] IG% 0.400 Normal 0.0-0.9 [facility] Comment on above: Result Comment: IG% - Immature Granulocytes (promyelocytes, myelocytes and metamyelocytes) > 1% indicates that a LEFT SHIFT is Present. Performed By: #### L 501.5200, L503.6030, L503.0106, L3100.1725, L500.4050 #### [facility] [address] [place], [address] Lymphocytes/100 WBC (Bld) 23.9 % Normal 19-41 [facility] Comment on above: Performed By: #### L 501.5200, L503.6030, L503.0106, L3100.1725, L500.4050 #### [facility] [address] [place], [address] MCH (RBC) [Entitic mass] 25.6 pg Low 27.0-32.0 [facility] Comment on above: Performed By: #### L 501.5200, L503.6030, L503.0106, L3100.1725, L500.4050 #### [facility] [address] [place], [address] MCHC (RBC) [Mass/Vol] 30.0 g/dL Low 32-36 [facility] Comment on above: Performed By: #### L 501.5200, L503.6030, L503.0106, L3100.1725, L500.4050 #### [facility] [address] [place], [address] MCV (RBC) [Entitic vol] 85.3 fL Normal 81-99 [facility] Comment on above: Performed By: #### L 501.5200, L503.6030, L503.0106, L3100.1725, L500.4050 #### [facility] [address] [place], [address] Monocytes/100 WBC (Bld) 9.3 % Normal 0-10 [facility] Comment on above: Performed By: #### L 501.5200, L503.6030, L503.0106, L3100.1725, L500.4050 #### [facility] [address] [place], [address] Neutrophils/100 WBC (Bld) 65.1 % Normal 47-70 [facility] Comment on above: Performed By: #### L 501.5200, L503.6030, L503.0106, L3100.1725, L500.4050 #### [facility] [address] [place], [address] Nucleated RBC (Bld) [#/Vol] 0 10*3/uL Normal 0-5 [facility] Comment on above: Performed By: #### L 501.5200, L503.6030, L503.0106, L3100.1725, L500.4050 #### [facility] [address] [place], [address] Platelet mean volume (Bld) [Entitic vol] 10.2 fL Normal 6.2-12.0 [facility] Comment on above: Performed By: #### L 501.5200, L503.6030, L503.0106, L3100.1725, L500.4050 #### [facility] [address] [place], [address] Platelets (Bld) [#/Vol] 492 10*3/uL High 150-450 [facility] Comment on above: Performed By: #### L 501.5200, L503.6030, L503.0106, L3100.1725, L500.4050 #### [facility] [address] [place], [address] RBC (Bld) [#/Vol] 3.95 10*6/uL Low 4.2-5.4 [facility] Comment on above: Performed By: #### L 501.5200, L503.6030, L503.0106, L3100.1725, L500.4050 #### [facility] [address] [place], [address] RDW SD 50.0 fl High 35.1-43.9 [facility] Comment on above: Performed By: #### L 501.5200, L503.6030, L503.0106, L3100.1725, L500.4050 #### [facility] [address] [place], [address] WBC (Bld) [#/Vol] 10.1 10*3/uL Normal 4.4-11.0 [facility] Comment on above: Performed By: #### L 501.5200, L503.6030, L503.0106, L3100.1725, L500.4050 #### [facility] [address] [place], [address] Eosinophil percentageOrdered By: [facility] Eosinophils/100 WBC (Bld) 0.9 % 0-5 [facility] Erythrocyte distribution wid th ratioOrdered By: [facility] on 09-09-2024 Erythrocyte distribution width (RBC) [Ratio] 16.0 % High 11.6-14.6 [facility] Erythrocyte distribution wid th standard deviationOrdered By: [facility] on 09-09-2024 Erythrocyte distribution width (RBC) [Ratio] 50.0 fl High 35.1-43.9 [facility] Hematocrit Auto (Bld) [Volum e fraction]Ordered By: [facility] on 09-09-2024 Hematocrit (Bld) [Volume fraction] 33.7 % Low 37-47 [facility] Hemoglobin measurementOrdere d By: [facility] on 09-09-2024 Hemoglobin (Bld) [Mass/Vol] 10.1 g/dL Low 12.0-15.0 [facility] Immature granulocytes/100 WB C Auto (Bld)Ordered By: [facility] 09-09-2024 Immature granulocytes/100 WBC (Bld) 0.400 % 0.0-0.9 [facility] Comment on above: IG% - Immature Granu locytes (promyelocytes, myelocytes and metamyelocytes) > 1% indicates that a LEFT SHIFT is Present. MCV (mean corpuscular volume ) determinationOrdered By: irenacampojose Juanjasvir on 09-09-2024 MCV (RBC) [Entitic vol] 85.3 fL 81-99 [facility] Mean corpuscular hemoglobin (MCH) determinationOrdered By: Maricarmen Tavares on 09-09-2024 MCH (RBC) [Entitic mass] 25.6 pg Low 27.0-32.0 [facility] Mean corpuscular hemoglobin concentration (MCHC) determinationOrdered By: Maricarmen Tavares on 09-09-2024 MCHC (RBC) [Mass/Vol] 30.0 g/dL Low 32-36 [facility] Mean platelet volume determi nationOrdered By: Maricarmen Tavares on 09-09-2024 Platelet mean volume (Bld) [Entitic vol] 10.2 fL 6.2-12.0 [facility] Monocyte percentageOrdered B y: Efkrystin Martineze on 09-09-2024 Monocytes/100 WBC (Bld) 9.3 % 0-10 [facility] Neutrophil percentageOrdered By: Maticampojose Tavares on 09-09-2024 Neutrophils/100 WBC (Bld) 65.1 % 47-70 [facility] Nucleated red blood cell per centageOrdered By: Maricarmen Martineze on 09-09-2024 Nucleated RBC/100 WBC (Bld) [Ratio] 0 % 0-5 [facility] Platelet countOrdered By: Ef krystin Tavares on 09-09-2024 Platelets (Bld) [#/Vol] 492 10*3/uL High 150-450 [facility] RBC Auto (Bld) [#/Vol]Ordere d By: Maricarmen Tavares on 09-09-2024 RBC (Bld) [#/Vol] 3.95 10*6/uL Low 4.2-5.4 [facility] White blood cell (WBC) count Ordered By: Maricarmen Tavares on 09-09-2024 WBC (Bld) [#/Vol] 10.1 10*3/uL 4.4-11.0 [facility] Endocrinology Visit Reporton 09-08-2024 Endocrinology Visit Report [facility] [address] [place] [address]. [address] [place] [address] OFFICE VISIT Date of Service: 09/08/24 MR#: [id number] Acct: [id number] Name: KIRILL ALMAZAN Rep #: [id number] : 1955 Provider: Xavier Noland Age/Sex: 69/F Location: [facility] [place] Status: Signed Intake Vital Signs 05/11/24 13:19 [...] QDAY 09/08/24 5 History mcg chewable tablet [id number] 500 mcg cap PO 09/08/24 09/08/24 History [...] is taking basal bolus. She is using DexGratci CGM Upload shows very high blood sugars after breakfast and spikes after lunch and supper. GMI is 7.5% She is retired and having some difficulty adjusting. She had COVID recently and is not bouncing back. She is on a statin. Hemoglobin in (more content not included)... Normal [facility] - Hematology and Cell countsOrdered By: Steve Metz on 09-08-2024 HbA1c (Bld) [Mass fraction] 7.9 % High 4.2-6.3 [facility] Microalb:Creat Ratio,Random URon 09-01-2024 MALB:CREAT 30.7 mg/g CRE Normal [facility] Comment on above: Result Comment: AMENDED REPORT 09/01/24 1103 MALB:CREAT previously reported as: 307.3 mg/g CRE Performed By: #### L 502.0250 #### [facility] [address] [place], [place], [id number] Stool Occult Blood iFOBon STOB Negative Normal [facility] Comment on above: Performed By: #### L 501.5200, L503.6030, L503.0106, L3100.1725, L500.4050 #### [facility] [address] [place], [place], [id number] Stool gastrointestinal hemog lobin detection by immunologic methodOrdered By: Maricarmen Tavares on 08-10-2024 Lower GI hemoglobin IA Ql (Stl) [facility] Lower GI hemoglobin IA Ql (Stl) [facility] Ferritinon 08-06-2024 Ferritin [Mass/Vol] 826 ng/mL High 22-378 [facility] Comment on above: Performed By: #### L 503.6550, L503.6030 #### [facility] [address] [place], [address] Iron+Iron Binding Capacityon 08-06-2024 TIBC 206 ug/dL Low 250-450 [facility] Comment on above: Performed By: #### L 503.6550, L503.6030 #### [facility] [address] [place], [address] Absolute lymphocyte countOrd ered By: Maricarmen Tavares on 08-05-2024 Lymphocytes Auto (Unsp spec) [#/Vol] 2.45 10*3/uL 0.83-4.51 [facility] Absolute neutrophil countOrd ered By: Maricarmen Tavares on 08-05-2024 Neutrophils (Bld) [#/Vol] 6.8 10*3/uL 2.0-7.7 [facility] Anion gap in Serum or Plasma Ordered By: Maricarmen Tavares on 08-05-2024 Anion gap [Moles/Vol] 12 mmol/L 5-15 [facility] Automated lymphocyte count a s percentage of total leukocytesOrdered By: Maricarmen Tavares on 08-05-2024 Lymphocytes/100 WBC Auto (Unsp spec) 23.8 % [facility] BUN/creatinine ratioOrdered By: Maricarmen Tavares on 08-05-2024 Urea nitrogen/Creatinine [Mass ratio] 18.5 mg/mg - [facility] Basic Metabolic Profile (BMP )on 08-05-2024 BUN/CRE 18.5 RATIO Normal 12-28 [facility] Comment on above: Performed By: #### L 501.5200, L503.6030, L503.0106, L3100.1725, L500.4050 #### [facility] [address] [place], [address] Calcium [Mass/Vol] 9.7 mg/dL Normal 7.6-11.0 [facility] Comment on above: Performed By: #### L 501.5200, L503.6030, L503.0106, L3100.1725, L500.4050 #### [facility] [address] [place], [address] Chloride [Moles/Vol] 99 mmol/L Normal 98-108 [facility] Comment on above: Performed By: #### L 501.5200, L503.6030, L503.0106, L3100.1725, L500.4050 #### [facility] [address] [place], [address] CO2 [Moles/Vol] 27.2 mmol/L Normal 21.0-32.0 [facility] Comment on above: Performed By: #### L 501.5200, L503.6030, L503.0106, L3100.1725, L500.4050 #### [facility] [address] [place], [address] Creatinine [Mass/Vol] 0.86 mg/dL Normal 0.70-1.20 [facility] Comment on above: Performed By: #### L 501.5200, L503.6030, L503.0106, L3100.1725, L500.4050 #### [facility] [address] [place], [address] GAP 12 Normal 5-15 [facility] Comment on above: Performed By: #### L 501.5200, L503.6030, L503.0106, L3100.1725, L500.4050 #### [facility] [address] [place], [address] GFR/1.73 sq M.predicted among non-blacks MDRD (S/P/Bld) [Vol rate/Area] 74 mL/min/{1.73_m2} Normal >60 [facility] Comment on above: Result Comment: mL/m in/1.73m2 CKD-EPI Creatinine Equation (2020) Performed By: #### L 501.5200, L503.6030, L503.0106, L3100.1725, L500.4050 #### [facility] [address] [place], [address] Glucose [Mass/Vol] 139 mg/dL High 70-99 [facility] Comment on above: Performed By: #### L 501.5200, L503.6030, L503.0106, L3100.1725, L500.4050 #### [facility] [address] [place], [address] Potassium [Moles/Vol] 3.9 mmol/L Normal 3.3-5.1 [facility] Comment on above: Performed By: #### L 501.5200, L503.6030, L503.0106, L3100.1725, L500.4050 #### [facility] [address] [place], [address] Sodium [Moles/Vol] 139 mmol/L Normal 133-145 [facility] Comment on above: Performed By: #### L 501.5200, L503.6030, L503.0106, L3100.1725, L500.4050 #### [facility] [address] [place], [address] Urea nitrogen [Mass/Vol] 16 mg/dL Normal 4-19 [facility] Comment on above: Performed By: #### L 501.5200, L503.6030, L503.0106, L3100.1725, L500.4050 #### [facility] [address] [place], [address] Basophil percentageOrdered B y: Maricarmen Tavares on 08-05-2024 Basophils/100 WBC (Bld) 0.4 % 0-1 [facility] CBC W/Diff, Automatedon 07-10 Absolute Lymph 2.45 X10 3/uL Normal 0.83-4.51 [facility] Comment on above: Performed By: #### L 501.5200, L503.6030, L503.0106, L3100.1725, L500.4050 #### [facility] [address] [place], [address] Absolute Neut 6.8 X10 3/uL Normal 2.0-7.7 [facility] Comment on above: Performed By: #### L 501.5200, L503.6030, L503.0106, L3100.1725, L500.4050 #### [facility] [address] [place], [address] Basophils/100 WBC (Bld) 0.4 % Normal 0-1 [facility] Comment on above: Performed By: #### L 501.5200, L503.6030, L503.0106, L3100.1725, L500.4050 #### [facility] [address] [place], [address] Eosinophils/100 WBC (Bld) 1.0 % Normal 0-5 [facility] Comment on above: Performed By: #### L 501.5200, L503.6030, L503.0106, L3100.1725, L500.4050 #### [facility] [address] [place], [address] Erythrocyte distribution width (RBC) [Ratio] 15.8 % High 11.6-14.6 [facility] Comment on above: Performed By: #### L 501.5200, L503.6030, L503.0106, L3100.1725, L500.4050 #### [facility] [address] [place], [address] Hematocrit (Bld) [Volume fraction] 34.3 % Low 37-47 [facility] Comment on above: Performed By: #### L 501.5200, L503.6030, L503.0106, L3100.1725, L500.4050 #### [facility] [address] [place], [address] Hemoglobin (Bld) [Mass/Vol] 10.3 g/dL Low 12.0-15.0 [facility] Comment on above: Performed By: #### L 501.5200, L503.6030, L503.0106, L3100.1725, L500.4050 #### [facility] [address] [place], [address] IG% 0.300 Normal 0.0-0.9 [facility] Comment on above: Result Comment: IG% - Immature Granulocytes (promyelocytes, myelocytes and metamyelocytes) > 1% indicates that a LEFT SHIFT is Present. Performed By: #### L 501.5200, L503.6030, L503.0106, L3100.1725, L500.4050 #### [facility] [address] [place], [address] Lymphocytes/100 WBC (Bld) 23.8 % Normal 19-41 [facility] Comment on above: Performed By: #### L 501.5200, L503.6030, L503.0106, L3100.1725, L500.4050 #### [facility] [address] [place], [address] MCH (RBC) [Entitic mass] 26.3 pg Low 27.0-32.0 [facility] Comment on above: Performed By: #### L 501.5200, L503.6030, L503.0106, L3100.1725, L500.4050 #### [facility] [address] [place], [address] MCHC (RBC) [Mass/Vol] 30.0 g/dL Low 32-36 [facility] Comment on above: Performed By: #### L 501.5200, L503.6030, L503.0106, L3100.1725, L500.4050 #### [facility] [address] [place], [address] MCV (RBC) [Entitic vol] 87.7 fL Normal 81-99 [facility] Comment on above: Performed By: #### L 501.5200, L503.6030, L503.0106, L3100.1725, L500.4050 #### [facility] [address] [place], [address] Monocytes/100 WBC (Bld) 8.4 % Normal 0-10 [facility] Comment on above: Performed By: #### L 501.5200, L503.6030, L503.0106, L3100.1725, L500.4050 #### [facility] [address] [place], [address] Neutrophils/100 WBC (Bld) 66.1 % Normal 47-70 [facility] Comment on above: Performed By: #### L 501.5200, L503.6030, L503.0106, L3100.1725, L500.4050 #### [facility] [address] [place], [address] Nucleated RBC (Bld) [#/Vol] 0 10*3/uL Normal 0-5 [facility] Comment on above: Performed By: #### L 501.5200, L503.6030, L503.0106, L3100.1725, L500.4050 #### [facility] [address] [place], [address] Platelet mean volume (Bld) [Entitic vol] 10.6 fL Normal 6.2-12.0 [facility] Comment on above: Performed By: #### L 501.5200, L503.6030, L503.0106, L3100.1725, L500.4050 #### [facility] [address] [place], [address] Platelets (Bld) [#/Vol] 489 10*3/uL High 150-450 [facility] Comment on above: Performed By: #### L 501.5200, L503.6030, L503.0106, L3100.1725, L500.4050 #### [facility] [address] [place], [address] RBC (Bld) [#/Vol] 3.91 10*6/uL Low 4.2-5.4 [facility] Comment on above: Performed By: #### L 501.5200, L503.6030, L503.0106, L3100.1725, L500.4050 #### [facility] [address] [place], [address] RDW SD 50.5 fl High 35.1-43.9 [facility] Comment on above: Performed By: #### L 501.5200, L503.6030, L503.0106, L3100.1725, L500.4050 #### [facility] [address] [place], [address] WBC (Bld) [#/Vol] 10.3 10*3/uL Normal 4.4-11.0 [facility] Comment on above: Performed By: #### L 501.5200, L503.6030, L503.0106, L3100.1725, L500.4050 #### [facility] [address] [place], [address] Carbon dioxide, total [Moles /volume] in Central venous bloodOrdered By: Maricarmen Tavares on 08-05-2024 CO2 [Moles/Vol] 27.2 mmol/L 21.0-32.0 [facility] Chloride assayOrdered By: Mandy Tavares on 08-05-2024 Chloride [Moles/Vol] 99 mmol/L 98-108 [facility] Eosinophil percentageOrdered By: Maricarmen Tavares on 08-05-2024 Eosinophils/100 WBC (Bld) 1.0 % 0-5 [facility] Erythrocyte distribution wid th ratioOrdered By: Maricarmen Tavares on 08-05-2024 Erythrocyte distribution width (RBC) [Ratio] 15.8 % High 11.6-14.6 [facility] Erythrocyte distribution wid th standard deviationOrdered By: krystin Tavares on 08-05-2024 Erythrocyte distribution width (RBC) [Ratio] 50.5 fl High 35.1-43.9 [facility] Glomerular filtration rate ( GFR) estimation/1.73 sq m using serum, plasma, or whole bOrdered By: Maricarmen Tavares on 08-05-2024 GFR/1.73 sq M.predicted among non-blacks MDRD (S/P/Bld) [Vol rate/Area] 74 mL/min/{1.73_m2} >60 [facility] Comment on above: mL/min/1.73m2 CKD-EP I Creatinine Equation (2020) Hematocrit Auto (Bld) [Volum e fraction]Ordered By: Maricarmen Tavares on 08-05-2024 Hematocrit (Bld) [Volume fraction] 34.3 % Low 37-47 [facility] Hemoglobin measurementOrdere d By: Maricarmen Tavares on 08-05-2024 Hemoglobin (Bld) [Mass/Vol] 10.3 g/dL Low 12.0-15.0 [facility] Immature granulocytes/100 WB C Auto (Bld)Ordered By: Maricarmen Tavares on 08-05-2024 Immature granulocytes/100 WBC (Bld) 0.300 % 0.0-0.9 [facility] Comment on above: IG% - Immature Granu locytes (promyelocytes, myelocytes and metamyelocytes) > 1% indicates that a LEFT SHIFT is Present. Internal Medicine Office Vis shoaib 08-05-2024 Internal Medicine Office Visit [facility] [address] [place] [address] [place] [address] OFFICE VISIT Date of Service: 08/05/24 MR#: [id number] Acct: [id number] Name: KIRILL ALMAZAN Rep #: [id number] : 1955 Provider: Dr. Maricarmen brothers MD Age/Sex: 69/F Location: [facility] [place] Status: Signed Intake Vital Signs 04/15/24 09:03 [...] eyes, floater (more content not included)... Normal [facility] Iron measurement (mass/mass) Ordered By: Maricarmen Tavares on 08-05-2024 Iron (Unsp spec) [Mass/Mass] 23 ug/dL Low 50-170 [facility] MCV (mean corpuscular volume ) determinationOrdered By: Maricarmen Tavares on 08-05-2024 MCV (RBC) [Entitic vol] 87.7 fL 81-99 [facility] Mean corpuscular hemoglobin (MCH) determinationOrdered By: Maricarmen Tavares on 08-05-2024 MCH (RBC) [Entitic mass] 26.3 pg Low 27.0-32.0 [facility] Mean corpuscular hemoglobin concentration (MCHC) determinationOrdered By: Maricarmen Tavares on 08-05-2024 MCHC (RBC) [Mass/Vol] 30.0 g/dL Low 32-36 [facility] Mean platelet volume determi nationOrdered By: Maricarmen Tavares on 08-05-2024 Platelet mean volume (Bld) [Entitic vol] 10.6 fL 6.2-12.0 [facility] Monocyte percentageOrdered B y: Maricarmen Tavares on 08-05-2024 Monocytes/100 WBC (Bld) 8.4 % 0-10 [facility] Neutrophil percentageOrdered By: Maricarmen Tavares on 08-05-2024 Neutrophils/100 WBC (Bld) 66.1 % 47-70 [facility] No Panel InformationOrdered By: Maricarmen Tavares on 08-05-2024 Unsaturated Iron Binding Capacity 183 ug/dL Low 228-428 [facility] Nucleated red blood cell per centageOrdered By: Maricarmen Tavares on 08-05-2024 Nucleated RBC/100 WBC (Bld) [Ratio] 0 % 0-5 [facility] Platelet countOrdered By: Mandy Tavares on 08-05-2024 Platelets (Bld) [#/Vol] 489 10*3/uL High 150-450 [facility] Potassium measurement (mass/ volume)Ordered By: Maricarmen Tavares on 08-05-2024 Potassium (Unsp spec) [Mass/Vol] 3.9 mmol/L 3.3-5.1 [facility] RBC Auto (Bld) [#/Vol]Ordere d By: Maricarmen Tavares on 08-05-2024 RBC (Bld) [#/Vol] 3.91 10*6/uL Low 4.2-5.4 [facility] Random urine creatinine akanksha urement (mass/volume)Ordered By: Steve Metz on 08-05-2024 Creatinine Unsp time (U) [Mass/Vol] 165.00 mg/dL 28.00-217.00 [facility] Serum creatinine measurement (mass/volume)Ordered By: Maricarmen Tavraes on 08-05-2024 Creatinine [Mass/Vol] 0.86 mg/dL 0.70-1.20 [facility] Serum glucose measurement (m ass/volume)Ordered By: Maricarmen Tavares on 08-05-2024 Glucose [Mass/Vol] 139 mg/dL High 70-99 [facility] Serum or plasma calcium akanksha urement (mass/volume)Ordered By: Maricarmen Tavares on 08-05-2024 Calcium [Mass/Vol] 9.7 mg/dL 7.6-11.0 [facility] Serum or plasma ferritin chantel surement (mass/volume)Ordered By: Maricarmen Tavares on 08-05-2024 Ferritin [Mass/Vol] 826 ng/mL High 22-378 [facility] Serum or plasma iron saturat ion measurement (mass fraction)Ordered By: Maricarmen Tavares on 08-05-2024 Iron saturation [Mass fraction] 11.0 % Low 13-59 [facility] Comment on above: Previous reported re sult: 11.0 %Edited by: DK on 08/06/24:1555 Serum or plasma urea nitroge n measurement (mass/volume)Ordered By: Maricarmen Tavares on 08-05-2024 Urea nitrogen [Mass/Vol] 16 mg/dL 4-19 [facility] Sodium levelOrdered By: Mati Tavares on 08-05-2024 Sodium [Moles/Vol] 139 mmol/L 133-145 [facility] Urine albumin measurement detection limit of 20 mg/L or less (mass/volume)Ordered By: Steve Metz on 08-05-2024 Albumin DL <= 20 mg/L (U) [Mass/Vol] 50.7 mg/L NO RANGE EST. [facility] White blood cell (WBC) count Ordered By: Maricarmen Tavares on 08-05-2024 WBC (Bld) [#/Vol] 10.3 10*3/uL 4.4-11.0 [facility] Endocrinology Visit Reporton 05-11-2024 Endocrinology Visit Report [facility] [place] [address] OFFICE VISIT Date of Service: 05/11/24 MR#: [id number] Acct: [id number] Name: KIRILL ALMAZAN EMMANUEL Rep #: [id number] : 1955 Provider: Xavier Noland Age/Sex: 69/F Location: [facility] [place] Status: Signed Intake Vital Signs 01/20/24 13:48 [...] gauge x #400 ea 05/11/24 05/11/24 Rx (BD Ultra-Fine Ale Pen Needle) Have you fallen in the past year?: No [facility] Medical History Chronic cough Flu vaccine need [...] is taking basal bolus. She is using DexGratci CGM Upload shows very high blood sugars after breakfast and spikes after lunch and supper. She is retired and having some difficulty adjusting. She had COVID recently and is not bouncing back. She is on a statin. (more content not included)... Normal [facility] - Hematology and Cell countsOrdered By: Steve Metz on 05-11-2024 HbA1c (Bld) [Mass fraction] 8.0 % High 4.2-6.3 [facility] Internal Medicine Office Vis itodaljit 04-15-2024 Internal Medicine Office Visit [facility] [address] [place] [address] OFFICE VISIT Date of Service: 04/15/24 MR#: [id number] Acct: [id number] Name: KIRILL ALMAZAN Rep #: [id number] : 1955 Provider: Dr. Maricarmen brothers MD Age/Sex: 69/F Location: [facility] [place] Status: Signed Intake Vital Signs 12/11/23 08:15 [...] in the past year?: Yes (X1) [facility] Medical History (Updated 04/15/24 @ 13:12 by [...] her base (more content not included)... 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 Ran rapid flu/covid test. [facility] Medical History (Updated 01/20/24 @ 15:19 by [...] assist. Several (more content not included)... Normal [facility] Dexa Bone Density Studyon Dexa Bone Density Study [facility] Services [address] [place] [address] Dexa Bone Density Study MR#: [id number] Acct: [id number] Name: KIRILL ALMAZAN EMMANUEL Rep #: [id number] : 1955 F 68 From: Juanito garcia MD PCP: Dr. Maricarmen Tavares MD Status: REG [facility] Study: Dexa Bone Density Study Date of Exam: 02/25/24 Exam# [id number] Ordering Dr: Steve Metz MD -[id number] STUDY: DUAL ENERGY X-RAY ABSORPTIOMETRY / [...] Maricarmen Tavares MD; Dr. Steve Metz MD Ase Certified Technician: Signed Normal [facility] Endocrinology Visit Reporton 01-20-2024 Endocrinology Visit Report [facility] [address] [place] [address]. [address] [place] [address] OFFICE VISIT Date of Service: 01/20/24 MR#: [id number] Acct: [id number] Name: KIRILL ALMAZAN EMMANUEL Rep #: [id number] : 1955 Provider: Xavier Noland Age/Sex: 68/F Location: [facility] [place] Status: Signed Intake Vital Signs 09/16/23 13:45 [...] gauge x #100 ea 01/20/24 01/20/24 Rx (BD Ultra-Fine Ale Pen Needle) Have you fallen in the past year?: Yes [facility] Medical History (Updated 01/20/24 @ 15:19 by [...] wounds Endo (more content not included)... Normal [facility] Cervical or vaginal specimen microscopic examination by liquid based cytology (reportOrdered By: Angeles Rahman on 06-19-2023 Cytology report Cyto stain.thin prep Doc (Cvx/Vag) Comment . [facility] Comment on above: Criteria not met, HP V Genotype not performed.Performed at: - [facility] [id number] Director: Marilee Lantigua MD, Phone: [phone] at: = - [facility] [address] [id number] Director: Marilee Lantigua MD, Phone: [phone] Cervical or vagninal specime n microscopic examination by cytology stain (reported asOrdered By: Angeles Rahman on 06-19-2023 Cytology report Cyto stain Doc (Cvx/Vag) Comment . [facility] Comment on above: The Pap [...] DNA Probe+sig amp Ql (Cvx) Negative Negative [facility] Comment on above: This nucleic acid am plification test detects fourteen high-risk HPV types (16,18,31,33,35,39,45,51,52,56,58,59,66,68)without differentiation. Laboratory - CytologyOrdered By: Angeles Rahman on 06-19-2023 Supervisor Hand Workers Cyto stain Nom (Cvx/Vag) [ID] Comment . [facility] Comment on above: Maria Alejandra Rm, Cyto technologist (ASCP) Laboratory - Miscellaneous t estsOrdered By: Angeles Rahman on 06-19-2023 Service comment (Unsp spec) [Interp] . . [facility] Thin prep Papanicolaou smear with manual screeningOrdered By: Angeles Rahman on 06-19-2023 Thin prep Papanicolaou smear with manual screening Comment . [facility] Comment on above: NEGATIVE FOR INTRAEP ITHELIAL LESION OR MALIGNANCY. This liquid based Th inPrep(R) pap test was screened withthe use of an image guided system. Basophil percentageOrdered B y: Maricarmen Tavares on 05-29-2023 Basophil percentage < 1.0 mg/dL 0.55-1.02 [facility] No Panel InformationOrdered By: Maricarmen Tavares on 05-29-2023 Bedside Estimated GFR (eGFR) > 60.0000 mL/min >60 [facility] Laboratory - Hematology and Cell countson 05-13-2023 HbA1c (Bld) [Mass fraction] 8.0 % 4.2-6.3 [facility] Laboratory - Hematology and Cell countson 03-07-2023 HbA1c (Bld) [Mass fraction] 8.8 % [facility] Absolute lymphocyte countOrd ered By: Maricarmen Tavares on 02-08-2023 Lymphocytes Auto (Unsp spec) [#/Vol] 1.85 10*3/uL 0.83-4.51 [facility] Basophil percentageOrdered B y: Maricarmen Tavares on 02-08-2023 Basophils/100 WBC (Bld) 0.4 % 0-1 [facility] Bilirubin [Mass/Vol] 0.50 mg/dL 0.20-1.00 [facility] Comment on above: For patients on eltr ombopag therapy, use of Dimension [place]k TBIL is not recommended. Chloride [Moles/Vol] 103 mmol/L 98-107 [facility] Cholesterol [Mass/Vol] 163 mg/dL <200 [facility] Comment on above: <200 mg/dL Desirable 200-240 mg/dL Borderline >240 mg/dL High Risk Eosinophils/100 WBC (Bld) 1.7 % 0-5 [facility] Glucose [Mass/Vol] 308 mg/dL 74-106 [facility] Comment on above: Glucose result great er than or equal to 200 mg/dLsuggests DIABETES MELLITUS per A.D.A. criteria. Neutrophils (Bld) [#/Vol] 5.0 10*3/uL 2.0-7.7 [facility] Neutrophils/100 WBC (Bld) 65.4 % 47-70 [facility] Potassium [Moles/Vol] 4.4 mmol/L 3.5-5.1 [facility] Protein [Mass/Vol] 7.4 g/dL 6.4-8.2 [facility] Sodium [Moles/Vol] 137 mmol/L 136-145 [facility] Triglyceride [Mass/Vol] 116 mg/dL <199 [facility] Comment on above: The drugs N-Acetylcy steine and Metamizole may falsely depress this assay.Serum Triglycerides Reference Interval Normal <150 mg/dL Borderline high 150 - 199 mg/dL High 200 - 499 mg/dL Very High > or = 500 mg/dL WBC (Bld) [#/Vol] 7.6 10*3/uL 4.4-11.0 [facility] Blood erythrocytes count (nu mber/volume)Ordered By: Maricarmen Tavares on 02-08-2023 RBC (Bld) [#/Vol] 4.42 10*6/uL 4.2-5.4 [facility] Blood hemoglobin measurement (mass/volume)Ordered By: Maricarmen Tavares on 02-08-2023 Hemoglobin (Bld) [Mass/Vol] 13.0 g/dL 12.0-15.0 [facility] Blood lymphocytes/100 leukoc ytesOrdered By: Maricarmen Tavares on 02-08-2023 Lymphocytes/100 WBC (Bld) 24.4 % 19-41 [facility] Blood monocytes/100 leukocyt esOrdered By: Maricarmen Tavares on 02-08-2023 Monocytes/100 WBC (Bld) 6.9 % 0-10 [facility] Blood platelet mean volumeOr dered By: krystin Tavares on 02-08-2023 Platelet mean volume (Bld) [Entitic vol] 11.3 fL 6.2-12.0 [facility] Determination of erythrocyte mean corpuscular volume (MCV)Ordered By: Maricarmen Tavares on 02-08-2023 MCV (RBC) [Entitic vol] 96.6 fL 81-99 [facility] Hematocrit Auto (Bld) [Volum e fraction]Ordered By: irenacampojose Juanjasvir on 02-08-2023 Hematocrit (Bld) [Volume fraction] 42.7 % 37-47 [facility] Laboratory - Chemistry and C hemistry - challengeOrdered By: [facility] on 02-08-2023 ALP [Catalytic activity/Vol] 74 U/L 45-117 [facility] ALT [Catalytic activity/Vol] 16 U/L 13-56 [facility] CO2 [Moles/Vol] 31.0 mmol/L 21.0-32.0 [facility] Globulin (S) [Mass/Vol] 4.2 g/dL 2.2-4.2 [facility] Urea nitrogen/Creatinine [Mass ratio] 17.0 mg/mg 10-20 [facility] Laboratory - Hematology and Cell countsOrdered By: irenacampojose Juanjasvir on 02-08-2023 Erythrocyte distribution width (RBC) [Entitic vol] 49.9 fL 35.1-43.9 [facility] Erythrocyte distribution width (RBC) [Ratio] 13.9 % 11.6-14.6 [facility] Immature granulocytes/100 WBC (Bld) 1.200 % 0.0-0.9 [facility] Comment on above: IG% - Immature Granu locytes (promyelocytes, myelocytes and metamyelocytes) > 1% indicates that a LEFT SHIFT is Present. MCH (RBC) [Entitic mass] 29.4 pg 27.0-32.0 [facility] Nucleated RBC/100 WBC (Bld) [Ratio] 0 % 0-5 [facility] MCHC Auto (RBC) [Mass/Vol]Or dered By: Maricarmen Tavares on 02-08-2023 MCHC (RBC) [Mass/Vol] 30.4 g/dL 32-36 [facility] No Panel InformationOrdered By: Maricarmen Tavares on 02-08-2023 Estimated GFR (MDRD) Amer 82 mL/min >60 [facility] Comment on above: GFR Calc Estimated GFR (MDRD) Non-Af Amer 68 mL/min >60 [facility] Comment on above: Non- GFR Calc Platelets bldOrdered By: Nadeem Tavares on 02-08-2023 Platelets (Bld) [#/Vol] 313 10*3/uL 150-450 [facility] Serum or plasma albumin akanksha urement (mass/volume)Ordered By: Maricarmen Tavares on 02-08-2023 Albumin [Mass/Vol] 3.2 g/dL 3.2-5.0 [facility] Serum or plasma albumin/glob ulin mass ratioOrdered By: Maricarmen Tavares on 02-08-2023 Albumin/Globulin [Mass ratio] 0.8 {ratio} 0.9-2.4 [facility] Serum or plasma calcium akanksha urement (mass/volume)Ordered By: Maricarmen Tavares on 02-08-2023 Calcium [Mass/Vol] 8.8 mg/dL 8.5-10.1 [facility] Serum or plasma cholesterol in HDL measurement (mass/volume)Ordered By: Maricarmen Tavares on 02-08-2023 Cholesterol in HDL [Mass/Vol] 58 mg/dL >40 [facility] Comment on above: The drugs N-Acetylcy steine and Metamizole may falsely depress this assay. Reference Range HDL <40 mg/dL Low HDL Cholesterol HDL >or= 60 mg/dL High HDL Cholesterol Serum or plasma cholesterol in VLDL measurement (mass/volume)Ordered By: Maricarmen Tavares on 02-08-2023 Cholesterol in VLDL [Mass/Vol] 23 mg/dL 5-40 [facility] Serum or plasma creatinine m easurement (mass/volume)Ordered By: Maricarmen Tavares on 02-08-2023 Creatinine [Mass/Vol] 0.88 mg/dL 0.55-1.02 [facility] Comment on above: The validity of the calculated GFR & GFRAA in patients over 70 years has not been determined. Clinical correlation is essential. Serum or plasma low density lipoprotein (LDL) cholesterol measurement (mass/volume)Ordered By: Maricarmen Tavares on 02-08-2023 Cholesterol in LDL [Mass/Vol] 82 mg/dL 0-130 [facility] Serum or plasma urea nitroge n measurement (mass/volume)Ordered By: Maricarmen Tavares on 02-08-2023 Urea nitrogen [Mass/Vol] 15 mg/dL 7-18 [facility] Thin prep Papanicolaou smear with manual screeningOrdered By: Maricarmen Tavares on 02-08-2023 Thin prep Papanicolaou smear with manual screening 8 U/L 15-37 [facility] Thin prep Papanicolaou smear with manual screening 3 5-15 [facility] Laboratory - Hematology and Cell countson 10-16-2022 HbA1c (Bld) [Mass fraction] 7.7 % 4.2-6.3 [facility] Absolute lymphocyte countOrd ered By: Dr. Tavares on 05-02-2022 Lymphocytes Auto (Unsp spec) [#/Vol] 2.45 10*3/uL 0.83-4.51 [facility] Basophil percentageOrdered B y: Dr. Tavares on 05-02-2022 Basophils/100 WBC (Bld) 0.5 % 0-1 [facility] Bilirubin [Mass/Vol] 0.30 mg/dL 0.20-1.00 [facility] Comment on above: For patients on eltr ombopag therapy, use of Dimension [place] TBIL is not recommended. Chloride [Moles/Vol] 103 mmol/L 98-107 [facility] Eosinophils/100 WBC (Bld) 2.8 % 0-5 [facility] Glucose [Mass/Vol] 136 mg/dL 74-106 [facility] Comment on above: Fasting Glucose resu lt greater than or equal to 126 mg/dL suggests DIABETES MELLITUS per A.D.A. criteria. Neutrophils (Bld) [#/Vol] 5.1 10*3/uL 2.0-7.7 [facility] Neutrophils/100 WBC (Bld) 59.4 % 47-70 [facility] Potassium [Moles/Vol] 4.3 mmol/L 3.5-5.1 [facility] Protein [Mass/Vol] 7.4 g/dL 6.4-8.2 [facility] Sodium [Moles/Vol] 140 mmol/L 136-145 [facility] WBC (Bld) [#/Vol] 8.6 10*3/uL 4.4-11.0 [facility] Blood erythrocytes count (nu mber/volume)Ordered By: Dr. Tavares on 05-02-2022 RBC (Bld) [#/Vol] 4.41 10*6/uL 4.2-5.4 [facility] Blood hemoglobin measurement (mass/volume)Ordered By: Dr. Tavares on 05-02-2022 Hemoglobin (Bld) [Mass/Vol] 13.3 g/dL 12.0-15.0 [facility] Blood lymphocytes/100 leukoc ytesOrdered By: Dr. Tavares on 05-02-2022 Lymphocytes/100 WBC (Bld) 28.6 % 19-41 [facility] Blood monocytes/100 leukocyt esOrdered By: Dr. Tavares on 05-02-2022 Monocytes/100 WBC (Bld) 8.5 % 0-10 [facility] Blood platelet mean volumeOr dered By: Dr. Tavares on 05-02-2022 Platelet mean volume (Bld) [Entitic vol] 11.5 fL 6.2-12.0 [facility] Determination of erythrocyte mean corpuscular volume (MCV)Ordered By: Dr. Tavares on 05-02-2022 MCV (RBC) [Entitic vol] 97.3 fL 81-99 [facility] Hematocrit Auto (Bld) [Volum e fraction]Ordered By: Dr. Tavares on 05-02-2022 Hematocrit (Bld) [Volume fraction] 42.9 % 37-47 [facility] Laboratory - Chemistry and C hemistry - challengeOrdered By: Dr. Tavares on 05-02-2022 ALP [Catalytic activity/Vol] 79 U/L 45-117 [facility] ALT [Catalytic activity/Vol] 15 U/L 13-56 [facility] CO2 [Moles/Vol] 31.0 mmol/L 21.0-32.0 [facility] Globulin (S) [Mass/Vol] 3.9 g/dL 2.2-4.2 [facility] Urea nitrogen/Creatinine [Mass ratio] 20.1 mg/mg 10-20 [facility] Laboratory - Hematology and Cell countsOrdered By: Dr. Tavares on 05-02-2022 Erythrocyte distribution width (RBC) [Entitic vol] 48.0 fL 35.1-43.9 [facility] Erythrocyte distribution width (RBC) [Ratio] 13.3 % 11.6-14.6 [facility] Immature granulocytes/100 WBC (Bld) 0.200 % 0.0-0.9 [facility] Comment on above: IG% - Immature Granu locytes (promyelocytes, myelocytes and metamyelocytes) > 1% indicates that a LEFT SHIFT is Present. MCH (RBC) [Entitic mass] 30.2 pg 27.0-32.0 [facility] Nucleated RBC/100 WBC (Bld) [Ratio] 0 % 0-5 [facility] MCHC Auto (RBC) [Mass/Vol]Or dered By: Dr. Tavares on 05-02-2022 MCHC (RBC) [Mass/Vol] 31.0 g/dL 32-36 [facility] No Panel InformationOrdered By: Dr. Tavares on 05-02-2022 Estimated GFR (MDRD) Amer 76 mL/min >60 [facility] Comment on above: GFR Calc Estimated GFR (MDRD) Non-Af Amer 63 mL/min >60 [facility] Comment on above: Non- GFR Calc Platelets bldOrdered By: Dr. Tavares on 05-02-2022 Platelets (Bld) [#/Vol] 293 10*3/uL 150-450 [facility] Serum or plasma albumin akanksha urement (mass/volume)Ordered By: Dr. Tavares on 05-02-2022 Albumin [Mass/Vol] 3.5 g/dL 3.2-5.0 [facility] Serum or plasma albumin/glob ulin mass ratioOrdered By: Dr. Tavares on 05-02-2022 Albumin/Globulin [Mass ratio] 0.9 {ratio} 0.9-2.4 [facility] Serum or plasma calcium akanksha urement (mass/volume)Ordered By: Dr. Tavares on 05-02-2022 Calcium [Mass/Vol] 9.6 mg/dL 8.5-10.1 [facility] Serum or plasma creatinine m easurement (mass/volume)Ordered By: Dr. Tavares on 05-02-2022 Creatinine [Mass/Vol] 0.94 mg/dL 0.55-1.02 [facility] Comment on above: The validity of the calculated GFR & GFRAA in patients over 70 years has not been determined. Clinical correlation is essential. Serum or plasma urea nitroge n measurement (mass/volume)Ordered By: Dr. Tavares on 05-02-2022 Urea nitrogen [Mass/Vol] 19 mg/dL 7-18 [facility] Thin prep Papanicolaou smear with manual screeningOrdered By: Dr. Tavares on 05-02-2022 Thin prep Papanicolaou smear with manual screening 9 U/L 15-37 [facility] Thin prep Papanicolaou smear with manual screening 6 5-15 [facility] Laboratory - Hematology and Cell countson 03-27-2022 HbA1c (Bld) [Mass fraction] 7.0 % [facility] Glucose Glucometer (BldC) [M ass/Vol]Ordered By: Dr. Gonzalez on 02-26-2022 Glucose [Mass/Vol] 167 mg/dL 74-106 [facility] Comment on above: MANAGEMENT OF PATIEN T CARE PER NURSING PROTOCOL No Panel InformationOrdered By: Dr. Gonzalez on 02-20-2022 Nasal Screen MRSA/MSSA [facility] Laboratory - Chemistry and C hemistry - challengeOrdered By: Dr. Barnhart on 02-19-2022 Magnesium [Mass/Vol] 2.2 mg/dL 1.6-2.6 [facility] Serum or plasma albumin akanksha urement (mass/volume)Ordered By: Dr. Gonzalez on 02-19-2022 Albumin [Mass/Vol] 3.6 g/dL 3.2-5.0 [facility] Absolute lymphocyte countOrd ered By: Miladys Limon on 02-13-2022 Lymphocytes Auto (Unsp spec) [#/Vol] 2.27 10*3/uL 0.83-4.51 [facility] Basophil percentageOrdered B y: Miladys Limon on 02-13-2022 Basophils/100 WBC (Bld) 0.3 % 0-1 [facility] Bilirubin [Mass/Vol] 0.40 mg/dL 0.20-1.00 [facility] Comment on above: For patients on eltr ombopag therapy, use of Dimension [place] TBIL is not recommended. Chloride [Moles/Vol] 106 mmol/L 98-107 [facility] Eosinophils/100 WBC (Bld) 1.3 % 0-5 [facility] Glucose [Mass/Vol] 137 mg/dL 74-106 [facility] Comment on above: Fasting Glucose resu lt greater than or equal to 126 mg/dL suggests DIABETES MELLITUS per A.D.A. criteria. Neutrophils (Bld) [#/Vol] 4.7 10*3/uL 2.0-7.7 [facility] Neutrophils/100 WBC (Bld) 61.9 % 47-70 [facility] Potassium [Moles/Vol] 4.3 mmol/L 3.5-5.1 [facility] Protein [Mass/Vol] 7.2 g/dL 6.4-8.2 [facility] Sodium [Moles/Vol] 141 mmol/L 136-145 [facility] WBC (Bld) [#/Vol] 7.6 10*3/uL 4.4-11.0 [facility] Blood erythrocytes count (nu mber/volume)Ordered By: Miladys Limon on 02-13-2022 RBC (Bld) [#/Vol] 4.59 10*6/uL 4.2-5.4 [facility] Blood hemoglobin measurement (mass/volume)Ordered By: Miladys Limon on 02-13-2022 Hemoglobin (Bld) [Mass/Vol] 14.0 g/dL 12.0-15.0 [facility] Blood lymphocytes/100 leukoc ytesOrdered By: Miladysdebra Limon on 02-13-2022 Lymphocytes/100 WBC (Bld) 29.8 % 19-41 [facility] Blood monocytes/100 leukocyt esOrdered By: [facility]ys [facility] on 02-13-2022 Monocytes/100 WBC (Bld) 6.3 % 0-10 [facility] Blood platelet mean volumeOr dered By: Miladys Limon on 02-13-2022 Platelet mean volume (Bld) [Entitic vol] 11.5 fL 6.2-12.0 [facility] Determination of erythrocyte mean corpuscular volume (MCV)Ordered By: Miladys Limon on 02-13-2022 MCV (RBC) [Entitic vol] 97.8 fL 81-99 [facility] Hematocrit Auto (Bld) [Volum e fraction]Ordered By: Miladysyumiko Limon on 02-13-2022 Hematocrit (Bld) [Volume fraction] 44.9 % 37-47 [facility] Laboratory - Chemistry and C hemistry - challengeOrdered By: Miladys [facility] on 02-13-2022 ALP [Catalytic activity/Vol] 68 U/L 45-117 [facility] ALT [Catalytic activity/Vol] 23 U/L 13-56 [facility] CO2 [Moles/Vol] 31.0 mmol/L 21.0-32.0 [facility] Globulin (S) [Mass/Vol] 3.9 g/dL 2.2-4.2 [facility] Urea nitrogen/Creatinine [Mass ratio] 19.2 mg/mg 10-20 [facility] Laboratory - Hematology and Cell countsOrdered By: Miladys [facility] on 02-13-2022 Erythrocyte distribution width (RBC) [Entitic vol] 46.6 fL 35.1-43.9 [facility] Erythrocyte distribution width (RBC) [Ratio] 13.2 % 11.6-14.6 [facility] Immature granulocytes/100 WBC (Bld) 0.400 % 0.0-0.9 [facility] Comment on above: IG% - Immature Granu locytes (promyelocytes, myelocytes and metamyelocytes) > 1% indicates that a LEFT SHIFT is Present. MCH (RBC) [Entitic mass] 30.5 pg 27.0-32.0 [facility] Nucleated RBC/100 WBC (Bld) [Ratio] 0 % 0-5 [facility] MCHC Auto (RBC) [Mass/Vol]Or dered By: Miladys Limon on 02-13-2022 MCHC (RBC) [Mass/Vol] 31.2 g/dL 32-36 [facility] No Panel InformationOrdered By: Miladys Limon on 02-13-2022 Estimated GFR (MDRD) Amer 95 mL/min >60 [facility] Comment on above: GFR Calc Estimated GFR (MDRD) Non-Af Amer 79 mL/min >60 [facility] Comment on above: Non- GFR Calc Platelets bldOrdered By: Bharati Limon on 02-13-2022 Platelets (Bld) [#/Vol] 283 10*3/uL 150-450 [facility] Serum or plasma albumin/glob ulin mass ratioOrdered By: Miladys Limon on 02-13-2022 Albumin/Globulin [Mass ratio] 0.8 {ratio} 0.9-2.4 [facility] Serum or plasma calcium akanksha urement (mass/volume)Ordered By: Miladys Limon on 02-13-2022 Calcium [Mass/Vol] 9.3 mg/dL 8.5-10.1 [facility] Serum or plasma creatinine m easurement (mass/volume)Ordered By: Miladys Limon on 02-13-2022 Creatinine [Mass/Vol] 0.78 mg/dL 0.55-1.02 [facility] Comment on above: The validity of the calculated GFR & GFRAA in patients over 70 years has not been determined. Clinical correlation is essential. Serum or plasma urea nitroge n measurement (mass/volume)Ordered By: Miladys Limon on 02-13-2022 Urea nitrogen [Mass/Vol] 15 mg/dL 7-18 [facility] Thin prep Papanicolaou smear with manual screeningOrdered By: Miladys Limon on 02-13-2022 Thin prep Papanicolaou smear with manual screening 11 U/L 15-37 [facility] Thin prep Papanicolaou smear with manual screening 4 5-15 [facility] Laboratory - Hematology and Cell countson 01-31-2022 HbA1c (Bld) [Mass fraction] 7.6 % 4.2-6.3 [facility] - Hematology and Cell countson 12-19-2021 HbA1c (Bld) [Mass fraction] 8.0 % [facility] Work Phone: Absolute lymphocyte counton 11-06-2021 Lymphocytes Auto (Unsp spec) [#/Vol] 2.60 10*3/uL 0.83-4.51 [facility] Work Phone: Basophil percentageon 2021 Basophils/100 WBC (Bld) 0.4 % 0-1 [facility] Work Phone: Bilirubin [Mass/Vol] 0.50 mg/dL 0.20-1.00 [facility] Work Phone: Comment on above: For patients on eltr ombopag therapy, use of Dimension [place] TBIL is not recommended. Chloride [Moles/Vol] 104 mmol/L 98-107 [facility] Work Phone: Cholesterol [Mass/Vol] 174 mg/dL <200 [facility] Work Phone: Comment on above: <200 mg/dL Desirable 200-240 mg/dL Borderline >240 mg/dL High Risk Eosinophils/100 WBC (Bld) 1.8 % 0-5 [facility] Work Phone: Glucose [Mass/Vol] 223 mg/dL 74-106 [facility] Work Phone: Comment on above: Glucose result great er than or equal to 200 mg/dLsuggests DIABETES MELLITUS per A.D.A. criteria. Neutrophils (Bld) [#/Vol] 5.0 10*3/uL 2.0-7.7 [facility] Work Phone: Neutrophils/100 WBC (Bld) 58.8 % 47-70 [facility] Work Phone: Potassium [Moles/Vol] 4.4 mmol/L 3.5-5.1 [facility] Work Phone: Protein [Mass/Vol] 7.4 g/dL 6.4-8.2 [facility] Work Phone: Sodium [Moles/Vol] 138 mmol/L 136-145 [facility] Work Phone: Triglyceride [Mass/Vol] 159 mg/dL <199 [facility] Work Phone: Comment on above: The drugs N-Acetylcy steine and Metamizole may falsely depress this assay.Serum Triglycerides Reference Interval Normal <150 mg/dL Borderline high 150 - 199 mg/dL High 200 - 499 mg/dL Very High > or = 500 mg/dL WBC (Bld) [#/Vol] 8.5 10*3/uL 4.4-11.0 [facility] Work Phone: Blood erythrocytes count (nu mber/volume)on 11-06-2021 RBC (Bld) [#/Vol] 4.72 10*6/uL 4.2-5.4 [facility] Work Phone: Blood hemoglobin measurement (mass/volume)on 11-06-2021 Hemoglobin (Bld) [Mass/Vol] 14.5 g/dL 12.0-15.0 [facility] Work Phone: Blood lymphocytes/100 leukoc yteson 11-06-2021 Lymphocytes/100 WBC (Bld) 30.7 % 19-41 [facility] Work Phone: Blood monocytes/100 leukocyt eson 11-06-2021 Monocytes/100 WBC (Bld) 8.1 % 0-10 [facility] Work Phone: Blood platelet mean volumeon 11-06-2021 Platelet mean volume (Bld) [Entitic vol] 11.8 fL 6.2-12.0 [facility] Work Phone: Determination of erythrocyte mean corpuscular volume (MCV)on 11-06-2021 MCV (RBC) [Entitic vol] 96.4 fL 81-99 [facility] Work Phone: Hematocrit Auto (Bld) [Volum e fraction]on 11-06-2021 Hematocrit (Bld) [Volume fraction] 45.5 % 37-47 [facility] Work Phone: Laboratory - Chemistry and C hemistry - challengeon 11-06-2021 ALP [Catalytic activity/Vol] 72 U/L 45-117 [facility] Work Phone: ALT [Catalytic activity/Vol] 23 U/L 13-56 [facility] Work Phone: CO2 [Moles/Vol] 29.0 mmol/L 21.0-32.0 [facility] Work Phone: Globulin (S) [Mass/Vol] 3.8 g/dL 2.2-4.2 [facility] Work Phone: Urea nitrogen/Creatinine [Mass ratio] 21.3 mg/mg 10-20 [facility] Work Phone: Laboratory - Hematology and Cell countson 11-06-2021 Erythrocyte distribution width (RBC) [Entitic vol] 46.6 fL 35.1-43.9 [facility] Work Phone: Erythrocyte distribution width (RBC) [Ratio] 13.0 % 11.6-14.6 [facility] Work Phone: Immature granulocytes/100 WBC (Bld) 0.200 % 0.0-0.9 [facility] Work Phone: Comment on above: IG% - Immature Granu locytes (promyelocytes, myelocytes and metamyelocytes) > 1% indicates that a LEFT SHIFT is Present. MCH (RBC) [Entitic mass] 30.7 pg 27.0-32.0 [facility] Work Phone: Nucleated RBC/100 WBC (Bld) [Ratio] 0 % 0-5 [facility] Work Phone: MCHC Auto (RBC) [Mass/Vol]on 11-06-2021 MCHC (RBC) [Mass/Vol] 31.9 g/dL 32-36 [facility] Work Phone: No Panel Informationon 11-06 Estimated GFR (MDRD) Amer 87 mL/min >60 [facility] Work Phone: Comment on above: GFR Calc Estimated GFR (MDRD) Non-Af Amer 72 mL/min >60 [facility] Work Phone: Comment on above: Non- GFR Calc Platelets bldon 11-06-2021 Platelets (Bld) [#/Vol] 264 10*3/uL 150-450 [facility] Work Phone: Serum or plasma albumin akanksha urement (mass/volume)on 11-06-2021 Albumin [Mass/Vol] 3.6 g/dL 3.2-5.0 [facility] Work Phone: Serum or plasma albumin/glob ulin mass ratioon 11-06-2021 Albumin/Globulin [Mass ratio] 0.9 {ratio} 0.9-2.4 [facility] Work Phone: Serum or plasma calcium akanksha urement (mass/volume)on 11-06-2021 Calcium [Mass/Vol] 9.3 mg/dL 8.5-10.1 [facility] Work Phone: Serum or plasma cholesterol in HDL measurement (mass/volume)on 11-06-2021 Cholesterol in HDL [Mass/Vol] 56 mg/dL >40 [facility] Work Phone: Comment on above: The drugs N-Acetylcy steine and Metamizole may falsely depress this assay. Reference Range HDL <40 mg/dL Low HDL Cholesterol HDL >or= 60 mg/dL High HDL Cholesterol Serum or plasma cholesterol in VLDL measurement (mass/volume)on 11-06-2021 Cholesterol in VLDL [Mass/Vol] 32 mg/dL 5-40 [facility] Work Phone: Serum or plasma creatinine m easurement (mass/volume)on 11-06-2021 Creatinine [Mass/Vol] 0.85 mg/dL 0.55-1.02 [facility] Work Phone: Comment on above: The validity of the calculated GFR & GFRAA in patients over 70 years has not been determined. Clinical correlation is essential. Serum or plasma low density lipoprotein (LDL) cholesterol measurement (mass/volume)on 11-06-2021 Cholesterol in LDL [Mass/Vol] 86 mg/dL 0-130 [facility] Work Phone: Serum or plasma urea nitroge n measurement (mass/volume)on 11-06-2021 Urea nitrogen [Mass/Vol] 18 mg/dL 7-18 [facility] Work Phone: Thin prep Papanicolaou smear with manual screeningon 11-06-2021 Thin prep Papanicolaou smear with manual screening 14 U/L 15-37 [facility] Work Phone: Thin prep Papanicolaou smear with manual screening 5 5-15 [facility] Work Phone: Laboratory - Hematology and Cell countson 09-18-2021 HbA1c (Bld) [Mass fraction] 8.5 % [facility] Work Phone: Gradall Operator Cytology Reporton 2020 Gradall Operator Cytology Report . Pathology Reports Accession: Collected Date/Time: Received Date/Time: Pathologist: [id number] 02/01/2021 16:12 EST 02/01/2021 18:00 EST Gradall Operator Cytology Report SPECIMEN: Specimen Description: Liquid Prep Specimen: Cervical/Endocervic al Screening or Diagnostic: Screening RELEVANT HISTORY: LMP: POSTMENOPAUSAL [id number] SPECIMEN ADEQUACY: SATISFACTORY FOR EVALUATION ENDOCERVICAL/TRANSF ORMATIONAL ZONE COMPONENT PRESENT INTERPRETATION/RESU LTS: NEGATIVE FOR INTRAEPITHELIAL LESION OR MALIGNANCY COMMENT: This Pap Test was successfully processed and evaluated with the assistance of the [employer] ThinPrep Test Imaging System. Electronically Signed by Pathology report verified by [facility] Screened by: KK Electronically signed by Hetal BAUMAN (ASCP) Sign-Out Date: 02/16/2021 09:41 Performing Lab: [facility], [address] [place] [address] Disclaimer The Pap test is a screening test for cervical cancer. As evidenced by published data, it is subject to both inherent false negative and false positive results. Your patient's results should be interpreted in context with pertinent clinical history including gynecological examination. Normal [facility] ([place]) .Auto DiffOrdered By: Destini Jack on 02-01-2021 Basophil, Absolute 0.10 103/mcL Normal 0.00-0.19 AO A uto Heme SS Comment on above: Performed By: #### C BC, ADIFF, ANEU, CMP, TSH, GFR #### [address] [address] Basophils/100 WBC (Bld) 0.4 % Normal 0.0-2.5 A O Auto Heme SS Comment on above: Performed By: #### C BC, ADIFF, ANEU, CMP, TSH, GFR #### [address] [address] Eosinophil, Absolute 0.30 103/mcL Normal 0.00-0.40 AO Auto Heme SS Comment on above: Performed By: #### C BC, ADIFF, ANEU, CMP, TSH, GFR #### [address] [address] Eosinophils/100 WBC (Bld) 2.7 % Normal 0.0-7.0 AO Auto Heme SS Comment on above: Performed By: #### C BC, ADIFF, ANEU, CMP, TSH, GFR #### [address] [address] Lymphocyte, Absolute 2.20 103/mcL Normal 0.77-3.85 AO Auto Heme SS Comment on above: Performed By: #### C BC, ADIFF, ANEU, CMP, TSH, GFR #### [address] [address] Lymphocytes/100 WBC (Bld) 19.8 % Normal 10.0-50.0 AO Auto Heme SS Comment on above: Performed By: #### C BC, ADIFF, ANEU, CMP, TSH, GFR #### [address] [address] Monocyte, Absolute 0.70 103/mcL Normal 0.15-1.00 AO A uto Heme SS Comment on above: Performed By: #### C BC, ADIFF, ANEU, CMP, TSH, GFR #### [address] [address] Monocytes/100 WBC (Bld) 6.5 % Normal 1.7-13.0 A O Auto Heme SS Comment on above: Performed By: #### C BC, ADIFF, ANEU, CMP, TSH, GFR #### [address] [address] Neutrophils/100 WBC (Bld) 70.6 % Normal 37.0-80.0 AO Auto Heme SS Comment on above: Performed By: #### C BC, ADIFF, ANEU, CMP, TSH, GFR #### [address] [address] .GFROrdered By: SYSTEM ebookpie on 02-01-2021 GFR Non- 70 ml/min/1.73sqm Normal [...] BC, ADIFF, ANEU, CMP, TSH, GFR #### [address] [address] GFR 85 ml/min/1.73sqm Normal AO Chemistry S [...] BC, ADIFF, ANEU, CMP, TSH, GFR #### [place] [address] .NEUABSOrdered By: Marcella chapin on 02-01-2021 Neutrophil, Absolute 7.90 103/mcL High 2.85-6.16 AO Auto Heme SS Comment on above: Performed By: #### C BC, ADIFF, ANEU, CMP, TSH, GFR #### [place] [address] CBCOrdered By: Marcella mccallum on 02-01-2021 Erythrocyte distribution width (RBC) [Ratio] 13.1 % Normal 11.5-14.5 AO Auto Heme SS Comment on above: Performed By: #### C BC, ADIFF, ANEU, CMP, TSH, GFR #### [place] [address] Hematocrit (Bld) [Volume fraction] 41.2 % Normal 37.0-47.0 AO Auto Heme SS Comment on above: Performed By: #### C BC, ADIFF, ANEU, CMP, TSH, GFR #### [place] [address] MCH (RBC) [Entitic mass] 30.5 pg Normal 27.0-31.2 AO Auto Heme SS Comment on above: Performed By: #### C BC, ADIFF, ANEU, CMP, TSH, GFR #### [place] [address] MCV (RBC) [Entitic vol] 91.4 fL Normal 80.0-94.0 A O Auto Heme SS Comment on above: Performed By: #### C BC, ADIFF, ANEU, CMP, TSH, GFR #### [place] [address] Platelet mean volume (Bld) [Entitic vol] 10.1 fL Normal 7.4-10.4 AO Auto Heme SS Comment on above: Performed By: #### C BC, ADIFF, ANEU, CMP, TSH, GFR #### [address] [address] CBCon 02-01-2021 Hgb 13.7 G/dL Normal 12.0-16.0 [facility] ([place]) Comment on above: Performed By: #### C BC, ADIFF, ANEU, CMP, TSH, GFR #### [place] [address] MCHC 33.4 G/dL Normal 33.0-37.0 [facility] ([place]) Comment on above: Performed By: #### C BC, ADIFF, ANEU, CMP, TSH, GFR #### [place] [address] Platelet 265 10 3/mcL Normal 130-400 [facility] ([place]) Comment on above: Performed By: #### C BC, ADIFF, ANEU, CMP, TSH, GFR #### [place] [address] RBC 4.50 10 6/mcL Normal 4.20-5.40 [facility] ([place]) Comment on above: Performed By: #### C BC, ADIFF, ANEU, CMP, TSH, GFR #### [place] [address] WBC 11.20 10 3/mcL High 4.60-10.80 [facility] ([place]) Comment on above: Performed By: #### C BC, ADIFF, ANEU, CMP, TSH, GFR #### [place] [id number] CMPon 02-01-2021 Albumin Level 3.6 G/dL Normal 3.4-4.8 [facility] ([place]) Comment on above: Performed By: #### C BC, ADIFF, ANEU, CMP, TSH, GFR #### [address] [address] ALT [Catalytic activity/Vol] 25 U/L Normal 14-59 [facility] ([place]) Comment on above: Performed By: #### C BC, ADIFF, ANEU, CMP, TSH, GFR #### [address] [address] AST [Catalytic activity/Vol] 14 U/L Normal 10-40 [facility] ([place]) Comment on above: Performed By: #### C BC, ADIFF, ANEU, CMP, TSH, GFR #### [address] [address] Bili Total 0.5 mg/dL Normal 0.2-1.0 [facility] ([place]) Comment on above: Result Comment: Use of this assay is not recommended for patients undergoing treatment with eltrombopag due to the potential for falsely elevated results. Performed By: #### C BC, ADIFF, ANEU, CMP, TSH, GFR #### [place] [address] BUN/Creatinine Ratio 17 ratio Normal 7-27 [facility] ([place]) Comment on above: Performed By: #### C BC, ADIFF, ANEU, CMP, TSH, GFR #### [address] [address] Total Protein 6.9 G/dL Normal 6.4-8.2 [facility] ([place]) Comment on above: Performed By: #### C BC, ADIFF, ANEU, CMP, TSH, GFR #### [address] [address] CMPOrdered By: Marcella mccallum on 02-01-2021 Albumin/Globulin [Mass ratio] 1.1 {ratio} Normal 1.1-2.5 AO ADM SS Comment on above: Performed By: #### C BC, ADIFF, ANEU, CMP, TSH, GFR #### [address] [address] ALP [Catalytic activity/Vol] 85 U/L Normal 40-135 AO ADM SS Comment on above: Performed By: #### C BC, ADIFF, ANEU, CMP, TSH, GFR #### [address] [address] Calcium [Mass/Vol] 9.1 mg/dL Normal 8.4-10.2 AO ADM SS Comment on above: Performed By: #### C BC, ADIFF, ANEU, CMP, TSH, GFR #### [address] [address] Chloride [Moles/Vol] 103 mmol/L Normal 98-107 AO A DM SS Comment on above: Performed By: #### C BC, ADIFF, ANEU, CMP, TSH, GFR #### [address] [address] CO2 [Moles/Vol] 30 mmol/L Normal 23-31 AO ADM SS Comment on above: Performed By: #### C BC, ADIFF, ANEU, CMP, TSH, GFR #### [address] [address] Creatinine [Mass/Vol] 0.82 mg/dL Normal 0.55-1.02 AO ADM SS Comment on above: Performed By: #### C BC, ADIFF, ANEU, CMP, TSH, GFR #### [address] [address] Electrolyte Balance 9.0 mEq/L Normal AO AD M SS Comment on above: Performed By: #### C BC, ADIFF, ANEU, CMP, TSH, GFR #### [address] [address] Globulin 3.3 G/dL Normal AO ADM SS Comment on above: Performed By: #### C BC, ADIFF, ANEU, CMP, TSH, GFR #### [address] [address] Glucose [Mass/Vol] 207 mg/dL High 80-115 AO ADM SS Comment on above: Performed By: #### C BC, ADIFF, ANEU, CMP, TSH, GFR #### [address] [address] Potassium [Moles/Vol] 4.7 mmol/L Normal 3.5-5.1 AO ADM SS Comment on above: Performed By: #### C BC, ADIFF, ANEU, CMP, TSH, GFR #### [place] [address] [place], [place] [address] Sodium [Moles/Vol] 142 mmol/L Normal 136-145 AO ADM SS Comment on above: Performed By: #### C BC, ADIFF, ANEU, CMP, TSH, GFR #### [place] [address] [place], [place] [address] Urea nitrogen [Mass/Vol] 14 mg/dL Normal 7-18 AO ADM SS Comment on above: Performed By: #### C BC, ADIFF, ANEU, CMP, TSH, GFR #### [place] [address] [place], [place] [address] LABORATORYOrdered By: Destini Jack on 02-01-2021 Albumin [...] ADIFF, ANEU, CMP, TSH, GFR #### [place] [address] [place] [facility] KIRILL ALMAZAN ([id number]) 1955 F Date Time Provider Department 06/15/20 ALVARO RAMEY BRROBIAR During your visit today, we recorded the following information about you: Josefa Duenas [facility] 06/15/2020 2:[address] Michaud's office called to request that Cherie Rodriguez (MICHAEL) speak with Dr. Ramey/Chika concerning the breast mri denial and the treatment for the patient going forward. Cherie can be reached at [phone]. Thanks Allergies As of Date: 06/15/2020 Noted [...] Encounter Status:Closed by JOSEFA GONCALVES on 06/23/20 [facility] [place] 05-26-2020 CNPN Telephone (RADMN) ---- KIRILL ALMAZNA ([id number]) 1955 F Date Time Provider Department 05/26/20 [...] Encounter Status:Closed by FIORELLA CABRERA on 05/26/20 [facility] JOSE JUAN STEREO BX BREAST RTon [...] * * * * RESULT: FINAL REPORT #[id number] - JOSE JUAN STEREO BX BREAST RT [...] made to exam dated: 02/25/2020 mammogram - [facility]. A stereotactic guided biopsy was performed for [...] location, twelve cores were obtained using the [employer] system. A mini-cork clip was inserted into [...] scheduling her surgical appointment. Miri mckay/adiel:05/25/2020 15:41:25 Lithograph Operator(s): RT Elisa(R)(M), [facility] Multiple national specialty organizations have released breast cancer screening guidelines for women at average risk for developing breast cancer - guidelines that are based on both evidence and opinion, yet differ on when to start and how often to screen for breast cancer. With representation from Breast Imaging, Internal Medicine, Women's Health, Family Medicine, and Medical/Surgical Oncology, the [facility] has carefully reviewed the data and [...] their providers when to stop screening mammograms. Ase Certified Technician: Adiel Transcribe Date/Time: May 20 2020 12:50P Dictated by : MIRI DUKE MD This examination was interpreted and the report reviewed and (more content not included)... Normal [facility] SURGICAL PATHOLOGYon 021 SURGICAL PATHOLOGY Specimen originated from [facility] Specimen #: [id number] Submitting Physician: MIRI DUKE M.D. 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 PJM/dsh 05/24/2020 COMMENT The case was reviewed in consultation with Dr. Carlos Schneider, of the [facility] breast pathology department, who concurs. Feliz [...] time: 2 minute(s) Gross examination performed at [facility], [address] [place] [address] [place] 05/20/2020 5:36:55 PM Date of Report: 05/25/2020 Date of Procedure: 05/20/2020 Date of Receipt: 05/20/2020 Submitted by: MIRI DUKE M.D. ([id number]) Location: A10 Diagnostic interpretation performed at [place] [address]. CLIA Number: [id number] Normal [facility] DIAGNOSTIC RTon 05-04-19 21 [facility] DIAGNOSTIC RT * * *Final Report* * * DATE OF EXAM: May 04 2020 1:05PM W 0626 - [facility] DIAGNOSTIC RT / PROCEDURE REASON: right diagnostic mammogram * * * * Physician Interpretation * * * * RESULT: #[id number] - [facility] DIAGNOSTIC RT UNILATERAL RIGHT DIGITAL DIAGNOSTIC MAMMOGRAM WITH CAD: 05/04/2020 HISTORY: Right Diagnostic Mammogram / Call back/abnormal mamm: Right. RESULT: TECHNIQUE: The study was acquired using full field digital technology and interpreted from soft copy. Current study was also evaluated with a Computer Aided Detection (CAD). Comparison is made to exams dated: 02/25/2020 mammogram, 02/06/2019 mammogram, 01/03/2018 mammogram, and 01/02/2017 mammogram - [facility]. There are scattered fibroglandular elements in right [...] 14:52:00 copy to: PUSHPA CLARK, ph: [phone] Lithograph Operator(s): Yesenia Brown RT(R)(M), [facility] Mammogram BI-RADS: 4 Suspicious finding - Biopsy [...] Health, Family Medicine, and Medical/Surgical Oncology, the [facility] has carefully reviewed the data and [...] their providers when to stop screening mammograms. Ase Certified Technician: Adiel Transcribe Date/Time: May 04 2020 12:54P Dictated by: SHAHAB RYDER MD This examination was interpreted and the report reviewed and electronically signed by: SHAHAB RYDER MD on May 04 2020 2:52PM EST [id number] Normal [facility] US BREAST LTD RTon 05-04 [facility] [employer] BREAST LTD RT * * *Final Report* * * DATE OF EXAM: May 04 2020 1:41PM WRU 0594 - [facility] [employer] BREAST LTD RT / PROCEDURE REASON: right diagnostic mammogram * * * * Physician Interpretation * * * * #[id number] - [facility] [employer] BREAST LTD RT LIMITED ULTRASOUND OF RIGHT BREAST: 05/04/2020 HISTORY: Right Diagnostic Mammogram. RESULT: Comparison is made to exams dated: 05/04/2020 mammogram, 02/25/2020 mammogram, 02/06/2019 mammogram, 01/03/2018 mammogram, 01/02/2017 ultrasound, and 01/02/2017 mammogram - [facility]. Color flow and real-time ultrasound of the [...] 14:58:20 copy to: PUSHPA CLARK, ph: [phone] Lithograph Operator(s): Demi Whyte, [facility] Ultrasound BI-RADS: 1 Negative Multiple national specialty organizations have released breast cancer screening guidelines for women at average risk for developing breast cancer - guidelines that are based on both evidence and opinion, yet differ on when to start and how often to screen for breast cancer. With representation from Breast Imaging, Internal Medicine, Women's Health, Family Medicine, and Medical/Surgical Oncology, the [facility] has carefully reviewed the data and [...] their providers when to stop screening mammograms. Ase Certified Technician: Adiel Transcribe Date/Time: May 04 2020 1:28P Dictated by : SHAHAB RYDER MD This examination was interpreted and the report reviewed and electronically signed by: SHAHAB RYDER MD on May 04 2020 2:58PM EST [id number] Normal [facility] [place] 04-22-2020 CNPN Telephone (RADMN) ---- KIRILL ALMAZAN ([id number]) 1955 F Date Time Provider Department 04/22/20 LUCRETIA BABCOCK) RADMN During your visit today, we recorded the following information about you: [address] 04/22/2020 8:43 AM Signed return call to patient [phone] [address] 04/22/2020 8:50 AM Signed patient called- appointment made in [facility] for callback mammogram Allergies As of Date: [...] Status:Closed by LAURO WAY on 04/22/20 Normal [facility] No Panel Information Nasal Screen MRSA/MSSA [facility] Work Phone: Vital Signs Date Time Vital Sign Value Performing Clinician Facility 12-15-2024 14:52-0400 Body height 157.[address] Maricarmen Tavares MD Work Phone: [facility] 12-15-2024 14:52-0400 Body mass index (BMI) [Ratio] 41.1 kg/m2 Dr. Maricarmen Tavares MD Work Phone: [facility] 12-15-2024 14:52-0400 Body temperature 98.2 [degF] Dr. Maricarmen Tavares MD Work Phone: [facility] 12-15-2024 14:52-0400 Body weight 101.[address] Maricarmen Tavares MD Work Phone: [facility] 12-15-2024 14:52-0400 Diastolic blood pressure 72 mm[Hg] Dr. Maricarmen Tavares MD Work Phone: [facility] 12-15-2024 14:52-0400 Heart rate 83 /min Dr. Maricarmen Tavares MD Work Phone: [facility] 12-15-2024 14:52-0400 Respiratory rate 18 /min Dr. Maricarmen Tavares MD Work Phone: [facility] 12-15-2024 14:52-0400 SaO2% (BldA) [Mass fraction] 94 % Dr. Maricarmen Tavares MD Work Phone: [facility] 12-15-2024 14:52-0400 Systolic blood pressure 119 mm[Hg] Dr. Maricarmen Tavares MD Work Phone: [facility] 11-17-2024 12:47-0400 Body height 157.[address] Maricarmen Tavares MD Work Phone: [facility] 11-17-2024 12:47-0400 Body mass index (BMI) [Ratio] 41.8 kg/m2 Dr. Maricarmen Tavares MD Work Phone: [facility] 11-17-2024 12:47-0400 Body temperature 98.5 [degF] Dr. Maricarmen Tavares MD Work Phone: [facility] 11-17-2024 12:47-0400 Body weight 103.[address] Maricarmen Tavares MD Work Phone: [facility] 11-17-2024 12:47-0400 Diastolic blood pressure 83 mm[Hg] Dr. Maricarmen Tavares MD Work Phone: [facility] 11-17-2024 12:47-0400 Heart rate 87 /min Dr. Maricarmen Tavares MD Work Phone: [facility] 11-17-2024 12:47-0400 Respiratory rate 18 /min Dr. Maricarmen Tavares MD Work Phone: [facility] 11-17-2024 12:47-0400 SaO2% (BldA) [Mass fraction] 97 % Dr. Maricarmen Tavares MD Work Phone: [facility] 11-17-2024 12:47-0400 Systolic blood pressure 130 mm[Hg] Dr. Maricarmen Tavares MD Work Phone: [facility] 09-15-2024 13:24-0400 Body height 157.[address] Maricarmen Tavares MD Work Phone: [facility] 09-15-2024 13:24-0400 Body mass index (BMI) [Ratio] 42.2 kg/m2 Dr. Maricarmen Tavares MD Work Phone: [facility] 09-15-2024 13:24-0400 Body temperature 99.2 [degF] Dr. Maricarmen Tavares MD Work Phone: [facility] 09-15-2024 13:24-0400 Body weight 104.[address] Maricarmen Tavares MD Work Phone: [facility] 09-15-2024 13:24-0400 Diastolic blood pressure 64 mm[Hg] Dr. Maricarmen Tavares MD Work Phone: [facility] 09-15-2024 13:24-0400 Heart rate 88 /min Dr. Maricarmen Tavares MD Work Phone: [facility] 09-15-2024 13:24-0400 Respiratory rate 16 /min Dr. Maricarmen Tavares MD Work Phone: [facility] 09-15-2024 13:24-0400 SaO2% (BldA) [Mass fraction] 96 % Dr. Maricarmen Tavares MD Work Phone: [facility] [facility] 09-15-2024 13:24-0400 Systolic blood pressure 132 mm[Hg] Dr. Maricarmen Tavares MD Work Phone: [facility] 09-15-2024 13:23-0400 Body mass index (BMI) [Ratio] 43.7 kg/m2 Dr. Maricarmen Tavares MD Work Phone: [facility] 09-15-2024 13:23-0400 Body temperature 98.5 [degF] Dr. Maricarmen Tavares MD Work Phone: [facility] 09-15-2024 13:23-0400 Body weight 108.[address] Maricarmen Tavares MD Work Phone: [facility] 09-15-2024 13:23-0400 Diastolic blood pressure 70 mm[Hg] Dr. Maricarmen Tavares MD Work Phone: [facility] 09-15-2024 13:23-0400 Heart rate 83 /min Dr. Maricarmen Tavares MD Work Phone: [facility] 09-15-2024 13:23-0400 Respiratory rate 18 /min Dr. Maricarmen Tavares MD Work Phone: [facility] 09-15-2024 13:23-0400 SaO2% (BldA) [Mass fraction] 95 % Dr. Maricarmen Tavares MD Work Phone: [facility] 09-15-2024 13:23-0400 Systolic blood pressure 127 mm[Hg] Dr. Maricarmen Tavares MD Work Phone: [facility] 09-08-2024 13:05-0400 Body height 157.[address] Maricarmen Tavares MD Work Phone: [facility] 09-08-2024 13:05-0400 Body mass index (BMI) [Ratio] 44 kg/m2 Dr. Maricarmen Tavares MD Work Phone: [facility] 09-08-2024 13:05-0400 Body weight 109.[address] Maricarmen Tavares MD Work Phone: [facility] 09-08-2024 13:05-0400 Diastolic blood pressure 84 mm[Hg] Dr. Maricarmen Tavares MD Work Phone: [facility] 09-08-2024 13:05-0400 Heart rate 84 /min Dr. Maricarmen Tavares MD Work Phone: [facility] 09-08-2024 13:05-0400 SaO2% (BldA) [Mass fraction] 94 % Dr. Maricarmen Tavares MD Work Phone: [facility] 09-08-2024 13:05-0400 Systolic blood pressure 127 mm[Hg] Dr. Maricarmen Tavares MD Work Phone: [facility] 08-05-2024 10:16-0400 Body height 157.[address] Maricarmen Tavares MD Work Phone: [facility] 08-05-2024 10:16-0400 Body mass index (BMI) [Ratio] 44.8 kg/m2 Dr. Maricarmen Tavares MD Work Phone: [facility] 08-05-2024 10:16-0400 Body temperature 100.6 [degF] Dr. Maricarmen Tavares MD Work Phone: [facility] 08-05-2024 10:16-0400 Body weight 111.[address] Maricarmen Tavares MD Work Phone: [facility] 08-05-2024 10:16-0400 Diastolic blood pressure 78 mm[Hg] Dr. Maricarmen Tavares MD Work Phone: [facility] 08-05-2024 10:16-0400 Heart rate 85 /min Dr. Maricarmen Tavares MD Work Phone: [facility] 08-05-2024 10:16-0400 Respiratory rate 16 /min Dr. Maricarmen Tavares MD Work Phone: [facility] 08-05-2024 10:16-0400 SaO2% (BldA) [Mass fraction] 97 % Dr. Maricarmen Tavares MD Work Phone: [facility] 08-05-2024 10:16-0400 Systolic blood pressure 130 mm[Hg] Dr. Maricarmen Tavares MD Work Phone: [facility] 05-11-2024 13:19-0500 Body mass index (BMI) [Ratio] 44.8 kg/m2 Dr. Maricarmen Tavares MD Work Phone: [facility] 05-11-2024 13:19-0500 Body weight 111.[address] Maricarmen Tavares MD Work Phone: [facility] 05-11-2024 13:19-0500 Diastolic blood pressure 80 mm[Hg] Dr. Maricarmen Tavares MD Work Phone: [facility] 05-11-2024 13:19-0500 Heart rate 87 /min Dr. Maricarmen Tavares MD Work Phone: [facility] 05-11-2024 13:19-0500 SaO2% (BldA) [Mass fraction] 96 % Dr. Maricarmen Tavares MD Work Phone: [facility] 05-11-2024 13:19-0500 Systolic blood pressure 131 mm[Hg] Dr. Maricarmen Tavares MD Work Phone: [facility] 04-15-2024 09:03-0500 Body mass index (BMI) [Ratio] 44 kg/m2 Dr. Maricarmen Tavares MD Work Phone: [facility] 04-15-2024 09:03-0500 Body temperature 97.3 [degF] Dr. Maricarmen Tavares MD Work Phone: [facility] 04-15-2024 09:03-0500 Body weight 109.[address] Maricarmen Tavares MD Work Phone: [facility] 04-15-2024 09:03-0500 Diastolic blood pressure 82 mm[Hg] Dr. Maricarmen Tavares MD Work Phone: [facility] 04-15-2024 09:03-0500 Heart rate 80 /min Dr. Maricarmen Tavares MD Work Phone: [facility] 04-15-2024 09:03-0500 Respiratory rate 17 /min Dr. Maricarmen Tavares MD Work Phone: [facility] 04-15-2024 09:03-0500 SaO2% (BldA) [Mass fraction] 96 % Dr. Maricarmen Tavares MD Work Phone: [facility] 04-15-2024 09:03-0500 Systolic blood pressure 134 mm[Hg] Dr. Maricarmen Tavares MD Work Phone: [facility] 06-19-2023 11:39-0400 Body height 157.[address] Maricarmen Tavares Work Phone: [facility] 06-19-2023 11:39-0400 Body mass index (BMI) [Ratio] 47.5 kg/m2 Dr. Maricarmen Tavares Work Phone: [facility] 06-19-2023 11:39-0400 Body weight 117.[address] Maricarmen Tavares Work Phone: [facility] 06-19-2023 11:39-0400 Diastolic blood pressure 85 mm[Hg] Dr. Maricarmen Tavares Work Phone: [facility] 06-19-2023 11:39-0400 Systolic blood pressure 141 mm[Hg] Dr. Maricarmen Tavares Work Phone: [facility] 06-19-2023 10:02-0400 Body mass index (BMI) [Ratio] 47.2 kg/m2 Dr. Maricarmen Tavares Work Phone: [facility] 06-19-2023 10:02-0400 Body weight 117.[address] Maricarmen Tavares Work Phone: [facility] 06-19-2023 10:02-0400 Diastolic blood pressure 93 mm[Hg] Dr. Maricarmne Tavares Work Phone: [facility] 06-19-2023 10:02-0400 Heart rate 75 /min Dr. Maricarmen Tavares Work Phone: [facility] 06-19-2023 10:02-0400 Respiratory rate 16 /min Dr. Maricarmen Tavares Work Phone: [facility] 06-19-2023 10:02-0400 Systolic blood pressure 147 mm[Hg] Dr. Maricarmen Tavares Work Phone: [facility] 06-04-2023 15:23-0400 Body mass index (BMI) [Ratio] 47.5 kg/m2 Dr. Maricarmen Tavares Work Phone: [facility] 06-04-2023 15:23-0400 Body temperature 98.4 [degF] Dr. Maricarmen Tavares Work Phone: [facility] 06-04-2023 15:23-0400 Body weight 117.[address] Maricarmen Tavares Work Phone: [facility] 06-04-2023 15:23-0400 Diastolic blood pressure 83 mm[Hg] Dr. Maricarmen Tavares Work Phone: [facility] 06-04-2023 15:23-0400 Heart rate 68 /min Dr. Maricarmen Tavares Work Phone: [facility] 06-04-2023 15:23-0400 SaO2% (BldA) [Mass fraction] 92 % Dr. Maricarmen Tavares Work Phone: [facility] 06-04-2023 15:23-0400 Systolic blood pressure 139 mm[Hg] Dr. Maricarmen Tavares Work Phone: [facility] 05-13-2023 15:01-0500 Body height 157.[address] Maricarmen Tavares Work Phone: [facility] 05-13-2023 15:01-0500 Body mass index (BMI) [Ratio] 47.7 kg/m2 Dr. Maricarmen Tavares Work Phone: [facility] 05-13-2023 15:01-0500 Body temperature 98.4 [degF] Dr. Maricarmen Tavares Work Phone: [facility] 05-13-2023 15:01-0500 Body weight 118.[address] Maricarmen Tavares Work Phone: [facility] 05-13-2023 15:01-0500 Diastolic blood pressure 82 mm[Hg] Dr. Maricarmen Tavares Work Phone: [facility] 05-13-2023 15:01-0500 Heart rate 69 /min Dr. Maricarmen Tavares Work Phone: [facility] 05-13-2023 15:01-0500 Respiratory rate 16 /min Dr. Maricarmen Tavares Work Phone: [facility] 05-13-2023 15:01-0500 SaO2% (BldA) [Mass fraction] 97 % Dr. Maricarmen Tavares Work Phone: [facility] 05-13-2023 15:01-0500 Systolic blood pressure 140 mm[Hg] Dr. Maricarmen Tavares Work Phone: [facility] 03-07-2023 09:21-0500 Body mass index (BMI) [Ratio] 46.4 kg/m2 Dr. Maricarmen Tavares Work Phone: [facility] 03-07-2023 09:21-0500 Body temperature 98 [degF] Dr. Maricarmen Tavares Work Phone: [facility] 03-07-2023 09:21-0500 Body weight 115.[address] Maricarmen Tavares Work Phone: [facility] 03-07-2023 09:21-0500 Diastolic blood pressure 72 mm[Hg] Dr. Maricarmen Tavares Work Phone: [facility] 03-07-2023 09:21-0500 Heart rate 59 /min Dr. Maricarmen Tavares Work Phone: [facility] 03-07-2023 09:21-0500 Respiratory rate 16 /min Dr. Maricarmen Tavares Work Phone: [facility] 03-07-2023 09:21-0500 SaO2% (BldA) [Mass fraction] 98 % Dr. Maricarmen Tavares Work Phone: [facility] 03-07-2023 09:21-0500 Systolic blood pressure 131 mm[Hg] Dr. Maricarmen Tavares Work Phone: [facility] 02-08-2023 08:23-0500 Body height 157.[address] Maricarmen Tavares Work Phone: [facility] 02-08-2023 08:23-0500 Body mass index (BMI) [Ratio] 46.7 kg/m2 Dr. Maricarmen Tavares Work Phone: [facility] 02-08-2023 08:23-0500 Body temperature 97 [degF] Dr. Maricarmen Tavares Work Phone: [facility] 02-08-2023 08:23-0500 Body weight 116.[address] Maricarmen Tavares Work Phone: [facility] 02-08-2023 08:23-0500 Diastolic blood pressure 82 mm[Hg] Dr. Maricarmen Tavares Work Phone: [facility] 02-08-2023 08:23-0500 Heart rate 68 /min Dr. Maricarmen Tavares Work Phone: [facility] 02-08-2023 08:23-0500 Respiratory rate 16 /min Dr. Maricarmen Tavares Work Phone: [facility] 02-08-2023 08:23-0500 SaO2% (BldA) [Mass fraction] 95 % Dr. Maricarmen Tavares Work Phone: [facility] 02-08-2023 08:23-0500 Systolic blood pressure 142 mm[Hg] Dr. Maricarmen Tavares Work Phone: [facility] 11-07-2022 16:50-0400 Body mass index (BMI) [Ratio] 47 kg/m2 Dr. Maricarmen Tavares Work Phone: [facility] 11-07-2022 16:50-0400 Body temperature 97.7 [degF] Dr. Maricarmen Tavares Work Phone: [facility] 11-07-2022 16:50-0400 Body weight 116.[address] Maricarmen Tavares Work Phone: [facility] 11-07-2022 16:50-0400 Diastolic blood pressure 84 mm[Hg] Dr. Maricarmen Tavares Work Phone: [facility] 11-07-2022 16:50-0400 Heart rate 62 /min Dr. Maricarmen Tavares Work Phone: [facility] 11-07-2022 16:50-0400 Respiratory rate 16 /min Dr. Maricarmen Tavares Work Phone: [facility] 11-07-2022 16:50-0400 SaO2% (BldA) [Mass fraction] 97 % Dr. Maricarmen Tavares Work Phone: [facility] 11-07-2022 16:50-0400 Systolic blood pressure 130 mm[Hg] Dr. Maricarmen Tavares Work Phone: [facility] 10-16-2022 15:21-0400 Body mass index (BMI) [Ratio] 46.6 kg/m2 Dr. Maricarmen Tavares Work Phone: [facility] 10-16-2022 15:21-0400 Body temperature 98.2 [degF] Dr. Maricarmen Tavares Work Phone: [facility] 10-16-2022 15:21-0400 Body weight 115.[address] Maricarmen Tvaares Work Phone: [facility] 10-16-2022 15:21-0400 Diastolic blood pressure 88 mm[Hg] Dr. Maricarmen Tavares Work Phone: [facility] 10-16-2022 15:21-0400 Heart rate 80 /min Dr. Maricarmen Tavares Work Phone: [facility] 10-16-2022 15:21-0400 Respiratory rate 18 /min Dr. Maricarmen Tavares Work Phone: [facility] 10-16-2022 15:21-0400 SaO2% (BldA) [Mass fraction] 96 % Dr. Maricarmen Tavares Work Phone: [facility] 10-16-2022 15:21-0400 Systolic blood pressure 162 mm[Hg] Dr. Maricarmen Tavares Work Phone: [facility] 05-02-2022 14:58-0500 Body height 157.[address] Maricarmen Tavares Work Phone: [facility] 05-02-2022 14:58-0500 Body mass index (BMI) [Ratio] 45.3 kg/m2 Dr. Maricarmen Tavares Work Phone: [facility] 05-02-2022 14:58-0500 Body temperature 97.6 [degF] Dr. Maricarmen Tavares Work Phone: [facility] 05-02-2022 14:58-0500 Body weight 112.[address] Maricarmen Tavares Work Phone: [facility] 05-02-2022 14:58-0500 Diastolic blood pressure 90 mm[Hg] Dr. Maricarmen Tavares Work Phone: [facility] 05-02-2022 14:58-0500 Heart rate 69 /min Dr. Maricarmen Tavares Work Phone: [facility] 05-02-2022 14:58-0500 Respiratory rate 16 /min Dr. Maricarmen Tavares Work Phone: [facility] 05-02-2022 14:58-0500 SaO2% (BldA) [Mass fraction] 97 % Dr. Maricarmen Tavares Work Phone: [facility] 05-02-2022 14:58-0500 Systolic blood pressure 124 mm[Hg] Dr. Maricarmen Tavares Work Phone: [facility] 04-27-2022 07:27-0500 Body height 157.[address] Maricarmen Tavares Work Phone: [facility] 04-27-2022 07:27-0500 Body mass index (BMI) [Ratio] 44.9 kg/m2 Dr. Maricarmen Tavares Work Phone: [facility] 04-27-2022 07:27-0500 Body temperature 96.1 [degF] Dr. Maricarmen Tavares Work Phone: [facility] 04-27-2022 07:27-0500 Body weight 111.[address] Maricarmen Tavares Work Phone: [facility] 04-27-2022 07:27-0500 Diastolic blood pressure 84 mm[Hg] Dr. Maricarmen Tavares Work Phone: [facility] 04-27-2022 07:27-0500 Heart rate 83 /min Dr. Maricarmen Tavares Work Phone: [facility] 04-27-2022 07:27-0500 Respiratory rate 16 /min Dr. Maricarmen Tavares Work Phone: [facility] 04-27-2022 07:27-0500 SaO2% (BldA) [Mass fraction] 98 % Dr. Maricarmen Tavares Work Phone: [facility] 04-27-2022 07:27-0500 Systolic blood pressure 136 mm[Hg] Dr. Maricarmen Tavares Work Phone: [facility] 03-27-2022 15:00-0500 Body mass index (BMI) [Ratio] 44.5 kg/m2 Dr. Maricarmen Tavares Work Phone: [facility] 03-27-2022 15:00-0500 Body temperature 97.3 [degF] Dr. Maricarmen Tavares Work Phone: [facility] 03-27-2022 15:00-0500 Body weight 110.[address] Maricarmen Tavares Work Phone: [facility] 03-27-2022 15:00-0500 Diastolic blood pressure 83 mm[Hg] Dr. Maricarmen Tavares Work Phone: [facility] 03-27-2022 15:00-0500 Heart rate 73 /min Dr. Maricarmen Tavares Work Phone: [facility] 03-27-2022 15:00-0500 Respiratory rate 18 /min Dr. Maricarmen Tavares Work Phone: [facility] 03-27-2022 15:00-0500 SaO2% (BldA) [Mass fraction] 96 % Dr. Maricarmen Tavares Work Phone: [facility] 03-27-2022 15:00-0500 Systolic blood pressure 122 mm[Hg] Dr. Maricarmen Tavares Work Phone: [facility] 02-26-2022 19:15-0500 Body temperature 97.3 [degF] Dr. Pushpa Clark Work Phone: [facility] 02-26-2022 19:15-0500 Diastolic blood pressure 70 mm[Hg] Dr. Pushpa Clark Work Phone: [facility] 02-26-2022 19:15-0500 Heart rate 62 /min Dr. Pushpa Clark Work Phone: [facility] 02-26-2022 19:15-0500 Respiratory rate 16 /min Dr. Pushpa Clark Work Phone: [facility] 02-26-2022 19:15-0500 SaO2% (BldA) [Mass fraction] 94 % Dr. Pushpa Clark Work Phone: [facility] 02-26-2022 19:15-0500 Systolic blood pressure 121 mm[Hg] Dr. Pushpa Clark Work Phone: [facility] 02-26-2022 16:25-0500 Inhaled oxygen flow rate 4 L/min Dr. Pushpa Clark Work Phone: [facility] 02-26-2022 12:16-0500 Body height 157.[address] Pushpa Clark Work Phone: [facility] Work Phone: 02-26-2022 12:16-0500 Body mass index (BMI) [Ratio] 44 kg/m2 Dr. Pushpa Clark Work Phone: [facility] 02-26-2022 12:16-0500 Body weight 109.[address] Pushpa Clark Work Phone: [facility] 02-13-2022 08:22-0500 Body height 157.[address] Pushpa Clark Work Phone: [facility] Work Phone: 02-13-2022 08:22-0500 Body mass index (BMI) [Ratio] 45.3 kg/m2 Dr. Pushpa Clark Work Phone: [facility] 02-13-2022 08:22-0500 Body temperature 97.9 [degF] Dr. Pushpa Clark Work Phone: [facility] 02-13-2022 08:22-0500 Body weight 112.[address] Pushpa Clark Work Phone: [facility] 02-13-2022 08:22-0500 Diastolic blood pressure 80 mm[Hg] Dr. Pushpa Clark Work Phone: [facility] 02-13-2022 08:22-0500 Heart rate 76 /min Dr. Pushpa Clark Work Phone: [facility] 02-13-2022 08:22-0500 Respiratory rate 14 /min Dr. Pushpa Clark Work Phone: [facility] 02-13-2022 08:22-0500 SaO2% (BldA) [Mass fraction] 96 % Dr. Pushpa Clark Work Phone: [facility] 02-13-2022 08:22-0500 Systolic blood pressure 126 mm[Hg] Dr. Pushpa Clark Work Phone: [facility] 01-31-2022 10:15-0500 Body mass index (BMI) [Ratio] 45.5 kg/m2 Dr. Pushpa Clark Work Phone: [facility] 01-31-2022 10:15-0500 Body temperature 96.5 [degF] Dr. Pushpa Clark Work Phone: [facility] 01-31-2022 10:15-0500 Body weight 112.[address] Pushpa Clark Work Phone: [facility] 01-31-2022 10:15-0500 Diastolic blood pressure 88 mm[Hg] Dr. Pushpa Clark Work Phone: [facility] 01-31-2022 10:15-0500 Heart rate 71 /min Dr. Pushpa Clark Work Phone: [facility] 01-31-2022 10:15-0500 Respiratory rate 16 /min Dr. Pushpa Clark Work Phone: [facility] 01-31-2022 10:15-0500 SaO2% (BldA) [Mass fraction] 96 % Dr. Pushpa Clark Work Phone: [facility] 01-31-2022 10:15-0500 Systolic blood pressure 140 mm[Hg] Dr. Pushpa Clark Work Phone: [facility] 12-19-2021 15:14-0400 Body height 157.[address] Pushpa Clark Work Phone: [facility] Work Phone: 12-19-2021 15:14-0400 Body mass index (BMI) [Ratio] 46.1 kg/m2 Dr. Pushpa Clark Work Phone: [facility] Work Phone: 12-19-2021 15:14-0400 Body temperature 96.3 [degF] Dr. Pushpa Clark Work Phone: [facility] Work Phone: 12-19-2021 15:14-0400 Body weight 114.[address] Pushpa Clark Work Phone: [facility] Work Phone: 12-19-2021 15:14-0400 Diastolic blood pressure 67 mm[Hg] Dr. Pushpa Clark Work Phone: [facility] Work Phone: 12-19-2021 15:14-0400 Heart rate 64 /min Dr. Pushpa Clark Work Phone: [facility] Work Phone: 12-19-2021 15:14-0400 Respiratory rate 22 /min Dr. Pushpa Clark Work Phone: [facility] Work Phone: 12-19-2021 15:14-0400 SaO2% (BldA) [Mass fraction] 95 % Dr. Pushpa Clark Work Phone: [facility] Work Phone: 12-19-2021 15:14-0400 Systolic blood pressure 151 mm[Hg] Dr. Pushpa Clark Work Phone: [facility] Work Phone: 11-06-2021 09:08-0400 Body height 157.[address] Pushpa Clark Work Phone: [facility] Work Phone: 11-06-2021 09:08-0400 Body mass index (BMI) [Ratio] 44.9 kg/m2 Dr. Pushpa Clark Work Phone: [facility] Work Phone: 11-06-2021 09:08-0400 Body temperature 97.7 [degF] Dr. Pushpa Clark Work Phone: [facility] Work Phone: 11-06-2021 09:08-0400 Body weight 111.[address] Pushpa Clark Work Phone: [facility] Work Phone: 11-06-2021 09:08-0400 Diastolic blood pressure 82 mm[Hg] Dr. Pushpa Clark Work Phone: [facility] Work Phone: 11-06-2021 09:08-0400 Heart rate 59 /min Dr. Pushpa Clark Work Phone: [facility] Work Phone: 11-06-2021 09:08-0400 Respiratory rate 14 /min Dr. Pushpa Clark Work Phone: [facility] Work Phone: 11-06-2021 09:08-0400 SaO2% (BldA) [Mass fraction] 97 % Dr. Pushpa Clark Work Phone: [facility] Work Phone: 11-06-2021 09:08-0400 Systolic blood pressure 118 mm[Hg] Dr. Pushpa Clark Work Phone: [facility] Work Phone: 09-18-2021 15:20-0400 Body mass index (BMI) [Ratio] 45.1 kg/m2 Dr. Pushpa Clark Work Phone: [facility] Work Phone: 09-18-2021 15:20-0400 Body temperature 94.7 [degF] Dr. Pushpa Clark Work Phone: [facility] Work Phone: 09-18-2021 15:20-0400 Body weight 111.[address] Pushpa Clark Work Phone: [facility] Work Phone: 09-18-2021 15:20-0400 Diastolic blood pressure 88 mm[Hg] Dr. Pushpa Clark Work Phone: [facility] Work Phone: 09-18-2021 15:20-0400 Heart rate 70 /min Dr. Pushpa Clark Work Phone: [facility] Work Phone: 09-18-2021 15:20-0400 Respiratory rate 20 /min Dr. Pushpa Clark Work Phone: [facility] Work Phone: 09-18-2021 15:20-0400 SaO2% (BldA) [Mass fraction] 96 % Dr. Pushpa Clark Work Phone: [facility] Work Phone: 09-18-2021 15:20-0400 Systolic blood pressure 130 mm[Hg] Dr. Pushpa Clark Work Phone: [facility] Work Phone: Encounters Encounter Date Encounter Type Care Provider Facility Start: 01-18-2025 ambulatory Efewongbe Oleghe Facili ty:[facility] Start: 01-05-2025 End: 01-05-[address] [facility] Facility:[facility] Start: 12-31-2024 End: 12-[facility] Start: 12-28-2024 ambulatory Efewcampobe Oleghe Facili ty:[facility] Start: 12-24-[facility] Start: 12-15-2024 End: 12-15-[address] Anselmo Gallagher MD -[facility] Work Phone: Start: 12-15-2024 End: 12-15-[address] Maricarmen Tavares MD Work Phone: -[facility] Start: 12-14-[address] Anselmo Gallagher MD -[facility] Start: 11-17-[address] Anselmo Gallagher MD -[facility] Start: 11-17-2024 End: 11-17-[address] Anselmo Gallagher MD -[facility] Work Phone: Start: 11-17-2024 End: 11-17-[address] Maricarmen Tavares MD Work Phone: -[facility] Start: 11-04-2024 End: 11-04-[address] Maricarmen Tavares MD -[facility] Work Phone: Start: 11-04-2024 End: 11-04-[address] Maricarmen Tavares MD Work Phone: -[facility] Start: 09-25-2024 End: 09-25-[address] Maricarmen Tavares MD Work Phone: -[facility] Start: 09-25-2024 End: 09-25-[address] Steve Metz MD -[facility] Work Phone: Start: 09-25-2024 End: 09-25-2024 ambulatory Maricarmen Tavares Facility:[facility] Start: 09-15-[address] Anselmo Gallagher MD -[facility] Start: 09-15-2024 End: 09-15-[address] Anselmo Gallagher MD -[facility] Work Phone: Start: 09-15-2024 End: 09-15-[address] Maricarmen Tavares MD Work Phone: -[facility] Start: 09-09-2024 End: 09-09-[address] Maricarmen Tavares MD Work Phone: -Laboratory Start: 09-09-2024 End: 09-09-[address] Maricarmen Tavares MD -Laboratory Work Phone: Start: 09-08-2024 End: 09-08-[address] Steve Metz MD -[facility] Work Phone: Start: 09-08-2024 End: 09-09-[address] Maricarmen Tavares MD Work Phone: -[facility] Start: 08-10-2024 End: 08-10-[address] Maricarmen Tavares MD Work Phone: [facility] Work Phone: Start: 08-10-2024 End: 08-10-[address] Maricarmen Tavares MD -[facility] Work Phone: Start: 08-10-2024 End: 08-10-2024 [facility] Start: 08-05-2024 End: 08-05-[address] Maricarmen Tavares MD -[facility] Work Phone: Start: 08-05-2024 End: 08-05-[address] Maricarmen Tavares MD Work Phone: [facility] Work Phone: Start: 08-05-2024 End: 08-05-[address] [facility] Facility:[facility] Start: 05-11-2024 End: 05-11-[address] Steve Metz MD -[facility] Work Phone: Start: 05-11-2024 End: 05-11-2024 [facility] Start: 04-15-2024 End: 04-15-[address] Maricarmen Tavares MD -[facility] Work Phone: Start: 04-15-2024 End: 04-15-2024 ambulatory [facility] Facility:[facility] Start: 03-31-2024 End: 03-31-2024 [facility]ulatory [facility] Start: 02-25-2024 End: 02-25-2024 [facility] Start: 01-20-2024 End: 01-20-2024 ambulatory [facility] Facility:[facility] Start: 07-15-2023 Non-patient / Non-visit Dr. Mandy Tavares Work Phone: [facility] Start: 07-15-2023 End: 07-15-[address] Maricarmen Tavares Work Phone: [facility] Work Phone: Start: 07-15-2023 End: 07-15-[address] Maricarmen Tavares Work Phone: [facility]-Cardiovascular Services Work Phone: Start: 06-19-2023 End: 06-19-[address] Maricarmen Tavares Work Phone: [facility] Work Phone: Start: 06-19-2023 End: 06-19-[address] Maricarmen Tavares Work Phone: [facility]-Laboratory, Specimen Work Phone: Start: 06-19-2023 End: 06-19-[address] Maricarmen Tavares Work Phone: [facility] Work Phone: Start: 06-19-2023 End: 06-19-[address] Maricarmen Tavares Work Phone: [facility] Work Phone: Start: 06-04-2023 End: 06-04-[address] Maricarmen Tavares Work Phone: [facility] Work Phone: Start: 05-29-2023 End: 05-29-[address] Maricarmen Tavares Work Phone: [facility] Work Phone: Start: 05-29-2023 End: 05-29-[address] Maricarmen Tavares Work Phone: [facility]-Cat Scan, [facility] Work Phone: Start: 05-22-2023 End: 05-22-[address] Maricarmen Tavares Work Phone: [facility] Work Phone: Start: 05-22-2023 End: 05-22-[address] Maricarmen Tavares Work Phone: [facility]-Outpatient Breast Imaging Work Phone: Start: 05-14-2023 End: 05-14-[address] Maricarmen Tavares Work Phone: [facility] Work Phone: Start: 05-14-2023 End: 05-14-[address] Maricarmen Tavares Work Phone: [facility]-Radiology, [facility] Work Phone: Start: 05-13-2023 End: 05-13-[address] Maricarmen Tavares Work Phone: [facility] Work Phone: Start: 03-07-2023 End: 03-07-[address] Maricarmen Tavares Work Phone: [facility] Work Phone: Start: 02-08-2023 End: 02-08-[address] Maricarmen Tavares Work Phone: [facility] Work Phone: Start: 02-08-2023 End: 02-08-[address] Maricarmen Tavares Work Phone: [facility] Work Phone: Start: 11-07-2022 End: 11-07-[address] Maricarmen Tavares Work Phone: [facility] Work Phone: Start: 10-16-2022 End: 10-16-[address] Maricarmen Tavares Work Phone: [facility] Work Phone: Start: 05-03-2022 End: 05-03-[address] Maricarmen Tavares Work Phone: [facility] Work Phone: Start: 05-03-2022 End: 05-03-[address] Maricarmen Tavares Work Phone: [facility], [facility] Start: 05-02-2022 End: 05-02-[address] Maricarmen Tavares Work Phone: [facility] Work Phone: Start: 05-02-[address] Maricarmen Tavares Work Phone: [facility] Start: 05-02-2022 End: 05-02-2022 Emergency department patient visit Dr. Maricarmen Tavares Work Phone: [facility] Start: 05-02-2022 End: 05-02-[address] Maricarmen Tavares Work Phone: [facility] Internal Medicine Start: 04-27-2022 End: 04-27-[address] Maricarmen Tavares Work Phone: [facility] Internal Medicine Start: 04-23-2022 End: 04-23-[address] Maricarmen Tavares Work Phone: [facility] Work Phone: Start: 04-23-2022 End: 04-23-[address] Maricarmen Tavaers Work Phone: [facility]-Outpatient Breast Imaging Start: 03-27-2022 End: 03-27-[address] Maricarmen Tavares Work Phone: [facility] End[facility] Start: 02-26-2022 End: 02-26-2022 Admission to same day surgery center Dr. Pushpa Clark Work Phone: [facility]-Surgical Day Care Start: 02-26-2022 End: 02-26-[address] Pushpa Clark Work Phone: [facility] Work Phone: Start: 02-19-2022 End: 02-19-2022 Non-patient / Non-visit Dr. Maricarmen Tavares Work Phone: [facility] Heart [facility] Start: 02-13-2022 End: 02-13-[address] Pushpa Clark Work Phone: [facility] Work Phone: Start: 02-13-2022 End: 02-13-[address] Pushpa Clark Work Phone: [facility] Start: 02-13-2022 End: 02-13-2022 Emergency department patient visit Dr. Pushpa Clark Work Phone: [facility] Internal Medicine Start: 02-13-2022 End: 02-13-[address] Pushpa Clark Work Phone: [facility] Internal Medicine Start: 01-31-[address] Pushpa Clark Work Phone: [facility] Start: 01-31-2022 End: 01-31-2022 Encounter for general adult medical examination without abnormal findings Dr. Pushpa Clark Work Phone: [facility] Internal [facility] Start: 01-31-2022 End: 01-31-[address] Pushpa Clark Work Phone: [facility] Internal Medicine Start: 12-26-2021 End: 12-26-[address] Pushpa Clark Work Phone: [facility] Work Phone: Start: 12-26-2021 End: 12-26-[address] Pushpa Clark Work Phone: [facility]-Physical Therapy Start: 12-19-2021 End: 12-19-[address] Pushpa Clark Work Phone: [facility] Start: 11-06-2021 End: 11-06-[address] Pushpa Clark Work Phone: [facility] Work Phone: Start: 11-06-2021 End: 11-06-[address] Pushpa Clark Work Phone: [facility] Internal Medicine Start: 09-18-2021 End: 09-18-[address] Pushpa Clark Work Phone: [facility] Start: 02-01-2021 End: 02-05-2021 Outreach Lab PUSHPA CLARK MD [facility] Start: 02-01-2021 End: 02-01-2021 Patient encounter procedure PUSHPA CLARK MD [facility] Procedures Date Procedure Procedure Detail [...] Work Phone: Comment on above: Performed at: [facility] [place] [id number] Director: Regan Bird PhD, Phone: [phone] Start: 11-12-2024 Folic acid measureme nt, RBC Dr. Maricarmen Tavares MD Work Phone: Comment on above: Performed at: [facility] [address] [id number] Director: Regan Bird PhD, Phone: [phone] Start: 11-12-[address] e fraction Dr. Maricarmen Tavares MD Work Phone: Start: 11-12-2024 Serum inorganic phos phate measurement Dr. Maricarmen Tavares MD Work Phone: Start: 11-12-2024 Total iron binding capacity measurement Dr. Maricarmen Tavares MD Work Phone: Start: 09-25-2024 Screening mammography Veronica Tavares MD Work Phone: Start: 09-15-2024 Folic acid measureme nt, RBC Dr. Maricarmen Tavares MD Work Phone: Comment on above: Performed at: [address] [id number] Director: Regan Bird PhD, Phone: [phone] Start: 09-15-[address] fraction [address]. [...] on above: BI-Rads 1; Dr. Mikhail engel; [facility] Start: 02-23-2008 Colonoscopy PUSHPA STEVEN MD Comment on above: Dr. Boateng; [facility] [address] Start: 2007 Arthroscopy of knee AND REW AMBER ESTES Comment on above: Right knee with part ial medial meniscectomy; Dr. Lopez [facility] Breast biopsy and re lated procedures [...] Activity Detail Author Start: 11-17-2024 Laboratory test [facility] Start: 11-17-2024 [facility] Start: 11-04-2024 Measurement of respiratory function [facility] Start: 09-15-2024 CBC W Auto Differential panel - Blood [facility] Start: 09-15-2024 Comprehensive metabolic 2000 panel - Serum or Plasma [facility] Start: 09-15-2024 Erythrocyte sedimentation rate [facility] Start: 09-15-2024 Erythropoietin (EPO) [Units/volume] in Serum or Plasma [facility] Start: 09-15-2024 Ferritin [Mass/volume] in Serum or Plasma [facility] Start: 09-15-2024 Folic acid measurement, RBC [facility] Start: 09-15-2024 Iron and Iron binding capacity panel - Serum or Plasma [facility] Start: 09-15-2024 Lactate dehydrogenase measurement [facility] Start: 09-15-2024 Magnesium measurement [facility] Start: 09-15-2024 Reticulocyte count [facility] Start: 09-15-2024 Serum inorganic phosphate measurement [facility] Start: 09-15-2024 Vitamin B12 measurement [facility] Start: 08-10-2024 Stool Occult Blood (ARIELLA) Stool Occult Blood (ARIELLA) [facility] Start: 08-05-2024 Basic metabolic 2008 panel with ionized calcium - Serum or Plasma [facility] Start: 08-05-2024 CBC W Auto Differential panel - Blood [facility] Start: 06-19-2023 Patient referral [facility] Work Phone: Start: 06-19-2023 Liquid based cervical cytology screening [facility] Start: 05-13-2023 Evaluation of diagnostic study results [facility] Start: 05-13-2023 Patient referral [facility] Work Phone: Start: 02-26-2022 Anesth open/surg arthrs total knee arthroplasty ANESTH KNEE ARTHROPLASTY [facility] Start: 02-26-2022 Arthrp kne condyle&platu medial&lat compartments TOTAL KNEE ARTHROPLASTY [facility] Start: 02-26-2022 Injection aa&/strd other peripheral nerve/branch NJX AA&/STRD OTHER PN/BRANCH [facility] Start: 02-26-2022 Application of ice collar, cap or bag [facility] Start: 02-26-2022 Exercises [facility] Start: 02-26-2022 Incentive spirometry [facility] Start: 02-26-2022 Neurovascular assessment [facility] Start: 02-26-2022 Patient discharge [facility] Start: 02-26-2022 Patient education [facility] Start: 02-26-2022 Provision of activity privileges [facility] Start: 02-26-2022 Recommendation to continue with treatment [facility] Start: 02-26-2022 Referral to service [facility] Start: 02-26-2022 Vital signs measurements [facility] Start: 02-26-2022 Wound care [facility] Start: 02-26-2022 [facility] Start: 01-31-2022 Patient referral [facility] Work Phone: Alanine aminotransfe rase [Enzymatic activity/volume] in Serum or Plasma [facility] Albumin [Mass/volume ] in Serum or Plasma [facility] Alkaline phosphatase [Enzymatic activity/volume] in Serum or Plasma [facility] Anion gap in Serum or Plasma [facility] Anion gap in Serum or Plasma [facility] Bilirubin, total measurement [facility] BUN/Creatinine ratio [facility] BUN/Creatinine ratio [facility] Calcium [Mass/volume ] in Serum or Plasma [facility] Calcium [Mass/volume ] in Serum or Plasma [facility] Carbon dioxide, tota l [Moles/volume] in Central venous blood [facility] Carbon dioxide, tota l [Moles/volume] in Central venous blood [facility] Creatinine [Mass/vol ume] in Serum or Plasma [facility] Creatinine [Mass/vol ume] in Serum or Plasma [facility] Electrocardiographic procedure [facility] Work Phone: Electrocardiographic procedure [facility] Erythrocyte mean cor puscular volume determination [facility] Folate [Moles/volume ] in Serum or Plasma [facility] Gliadin peptide IgA Ab [Units/volume] in Serum [facility] Gliadin peptide IgG Ab [Units/volume] in Serum [facility] Glucose [Mass/volume ] in Serum or Plasma [facility] Glucose [Mass/volume ] in Serum or Plasma [facility] Hematocrit [Volume F raction] of Blood [facility] Hematocrit [Volume F raction] of Blood [facility] Hemoglobin [Mass/vol ume] in Blood [facility] Leukocytes [#/volume] in Blood [facility] Liver stiffness by US.transient elastography [facility] Mean corpuscular hem oglobin concentration determination [facility] Mean corpuscular hem oglobin determination [facility] Measurement of immun oglobulin A in serum specimen [facility] Measurement of occul t blood in stool specimen using immunoassay [facility] Measurement of renal function [facility] Measurement of renal function [facility] MG Breast - bilatera l Screening [facility] Work Phone: MG Breast - bilatera l Screening [facility] MG Breast - bilatera l Screening [facility] Neutrophil count [facility] Neutrophil percent differential count [facility] NM Heart Views W str ess and W radionuclide IV [facility] Path report.final Dx Spec [facility] Patient referral [facility] Work Phone: Platelets [#/volume] in Blood [facility] Potassium measurement [facility] Potassium measurement [facility] Red blood cell count [facility] Red cell distributio n width determination [facility] Serum chloride measurement [facility] Serum chloride measurement [facility] Sodium measurement [facility] Sodium measurement [facility] T4 free measurement [facility] Thyroid stimulating hormone measurement [facility] Tissue transglutamin ase IgA Ab [Units/volume] in Serum [facility] Total protein measurement [facility] Urea nitrogen [Mass/ volume] in Serum or Plasma [facility] Urea nitrogen [Mass/ volume] in Serum or Plasma [facility] Urine microalbumin/c reatinine ratio measurement [facility] US Heart [facility] [place]izations Immunization Date Immunization Notes Care Provider Fa luna 12-11-2023 Seasonal trivalent influenza vaccine, adjuvanted, preservative free Dr. Maricarmen Tavares MD Work Phone: [facility] 06-09-2020 Covid (Pfizer) Dr. Pushpa mckeon Work Phone: [facility] 05-19-2020 Covid (Pfizer) Dr. Pushpa mckeon Work Phone: [facility] 12-08-2019 influenza virus vaccine, unspecified formulation PUSHPA CLARK MD [facility] Comment on above: Result Comment: [facility] 01-14-2019 influenza, injectabl e, quadrivalent, preservative free; Translations: [Fluarix PF Quadrivalent ] PUSHPA CLARK MD [facility] 12-08-2018 influenza virus vaccine, unspecified formulation PUSHPA CLARK MD [facility] 12-02-2018 influenza virus vaccine, unspecified formulation PUSHPA CLARK MD [facility] Payers Date Payer Category Payer Self-pay [id number] 2023 Medicare [id number] 2016 Unknown ANTHEM [id number] Medicare MEDICARE A ONLY [id number] Medicare MEDICARE A ONLY [id number] [facility] Private Health Insurance [id number] Unknown [id number] Unknown [id number] [id number] Unknown [id number] [id number] Unknown [id number] 2.840.1.034440.3.579.2.462 Unknown [id number] 2.840.1.852641.3.579.2.462 Unknown [id number] 2.840.1.670580.3.579.2.462 Unknown [id number] 2.840.1.510277.3.579.2.462 Unknown [id number] 2.840.1.731490.3.579.2.462 Unknown [id number] 2.840.1.889726.3.579.2.462 Unknown [id number] 2.840.1.147425.3.579.2.462 Unknown [id number] 2.840.1.949649.3.579.2.462 Unknown [id number] .840.1.330174.3.579.2.462 Unknown [id number] .840.1.663282.3.579.2.462 Unknown [id number] .840.1.050029.3.579.2.462 Unknown [id number] 2.840.1.183128.3.579.2.462 Unknown [id number] 2.840.1.037498.3.579.2.462 Unknown [id number] 2.840.1.818288.3.579.2.462 Unknown [id number] 2.840.1.891501.3.579.2.462 Unknown [id number] [id number] Unknown [id number] 2.16.840.1.375714.3.579.2.462 Social History Date Type Detail Facility Start: 01-14-2019 End: 10-28-2023 Never smoked tobacco (finding) [facility] Comment on above: no tobacco smoke exp osure Start: 1955 Sex Assigned At Female A [facility] Start: 11-06-2021 End: 06-19-2023 Tobacco smoking status NHIS Unknown if ever smoked [facility] Sex Female [facility] Medical Equipment Procedure Code Equipment Code Equipment [...] Start: 06-29-2020 CS INSERT FDA Start: 02-26-2022 FEMUR FDA Start: 02-26-2022 PATELLA FDA Start: [...] Cognitive function Level Of Cons ciousness Awake;Alert;Appropriate [facility] Work Phone: 02-26-2022 Cognitive function Voice/Name [facility] Work Phone: Clinical Notes 05-04-2020 to 12-15-2024 Note Date & Type Note Facility 12-15-2024 Progress note [facility] 11-17-2024 Progress note [facility] 11-17-2024 Progress note Note Date/Time November 17, 2024 1:43pm [facility] [address] [place] [address] OFFICE VISIT Date of Service: 11/17/24 1246 MR#: [id number] Acct: [id number] Name: KIRILL ALMAZAN Rep #: [id number] : 1955 From: Anselmo Gallagher MD Age/Sex: 69/F Location: [facility] Status: Signed HPI Subjective Date of Service [...] up after 2 months. Feels well. [facility] Medical History Iron deficiency anemia Anemia Chronic [...] 32 gauge x #400 ea 05/11/2411/17 Rx (BD Ultra-Fine Ale Pen Needle) atorvastatin 10 mg tablet 10 mg PO DAILY #90 tabs 06/0211/17/24 Rx biotin 1 mg capsule 1 mg [...] fallen in the past year?: No 11/17/24 8733 <Electronically signed by Anselmo Martin> Date _ Anselmo Gallagher MD Cosigner Signature: Date (if applicable) CC: Dr. Maricarmen Tavares MD ~ [facility] Work Phone: 1(802) 592-881907-01-2025 Evaluation note* Diagnosis Onset Date Resolution Status Admit Date Diabetes chronic September 08, 2024 1:02pm Hypertension chronic September 08 1:02pm Iron deficiency anemia chronic 2024 1:02pm Mixed hyperlipidemia chronic September 08, [...] High serum ferritin chronic Octob 2024 2:39pm [facility] Work Phone: 1(481) 490-538505-28-2025 Evaluation note* Diagnosis Onset Date Resolution Status [...] 1:02pm Obesity chronic September 08, 2024 1:02pm [facility] Work Phone: 1(513) 286-953105-28-2025 Evaluation note* Diagnosis Onset Date Resolution Status [...] 1:02pm Anemia chronic September 15, 2024 12:18pm [facility] Work Phone: 1(291) 733-164705-28-2025 Evaluation note* Diagnosis Onset Date Resolution Status [...] serum ferritin chronic September 15, 2024 12:18pm [facility] Work Phone: 1(345) 429-152505-28-2025 Evaluation note* Diagnosis Onset Date Resolution Status Admit Date Anxiety and depression chronic Ma y 2024 10:06am Chronic cough chronic August 05, 2 025 10:06am Hypertension chronic August 05 10:06am Insulin dependent diabetes mellitus chronic August 05, 2024 1 0:06am Mixed hyperlipidemia chronic August 05, 2024 10:06am Diabetes chronic September 08, 2024 1:02pm Hypertension chronic September 08 1:02pm Iron deficiency anemia chronic 2024 1:02pm Mixed hyperlipidemia chronic September 08, 2024 1:02pm Obesity chronic September 08, 2024 1:02pm Anemia chronic September 15, 2024 12:18pm High serum ferritin September 15, 2024 12:18pm Anemia chronic November 04, 2 025 9:58am Anxiety and depression chronic Au sonny 2024 9:58am Chronic cough chronic October 9:58am High serum ferritin chronic Augus t 2024 9:58am Hypertension chronic November 04, 2024 9:58am Insulin dependent diabetes mellitus chronic November 04 9:58am Mixed hyperlipidemia chronic Augu st 2024 9:58am Anemia chronic November 17, 2024 12:37pm [facility] Work Phone: 1(624) 772-754503-03-2025 Evaluation note* Diagnosis Onset Date Resolution Status Admit Date Diabetes chronic May 11 1:16pm Hypertension chronic May 11, 2 025 1:16pm Mixed hyperlipidemia chronic 2024 1:16pm Obesity chronic May 11 1:16pm [...] hyperlipidemia chronic September 08, 2024 1:02pm Obesity September 08, 2024 1:02pm [employer] Work Phone: 1(131) [phone] Evaluation note* Diagnosis Onset Date Resolution Status Admit Date Anxiety and depression chronic Fe bru2024 8:56am Chronic cough chronic April 8:56am Hypertension chronic April 8:56am Mixed hyperlipidemia chronic Febr ua2024 8:56am Diabetes chronic May 11 1:16pm Hypertension chronic May 11, 2 025 1:16pm Mixed hyperlipidemia chronic Jesse h 2024 1:16pm Obesity chronic May 11 1:16pm [facility] Work Phone: 1(131) 280-995402-05-2025 Evaluation note* Diagnosis Onset Date Resolution Status Admit Date Anxiety and depression chronic Fe bruary 2024 8:56am Chronic cough chronic April 8:56am Hypertension chronic April 8:56am Mixed hyperlipidemia chronic Febr uary 2024 8:56am Diabetes chronic May 11 1:16pm Hypertension chronic May 11, 2 025 1:16pm Mixed hyperlipidemia chronic Jesse h 2024 1:16pm Obesity chronic May 11 1:16pm Anxiety and depression chronic Ma y 2024 10:06am Chronic cough chronic August 05, 2 025 10:06am Hypertension chronic August 05, 10:06am Insulin dependent diabetes mellitus chronic August 05, 2024 1 0:06am Mixed hyperlipidemia chronic August 05, 2024 10:06am [facility] Work Phone: [phone] NotePap Smear Specimen AdequacyApril 2023 11:59pmComment.Satisfactory for evaluation. Endocervical and/or squamous metaplasticcells (endocervical component)are present.[facility] A#[id number] County Memorial HospitalComment on above:Satisfactory for evaluation. Endocervical and/or squamous metaplasticcells (endocervical component)are present.02-01-2021 Evaluation + Plan note Future Scheduled Tests Laboratory* Pathology Gradall Operator Request 02/01/21 Radiology* US Breast Right Complete 05/06/20 * MA Mammo Diagnostic Right w/ Chris 05/16/20 * MA Mammo Screening Bilateral w/ Chris 02/01/21 [facility] 03-12-2021 NoteHNO ID: [id number] Author: Monica Pérez (Tech) Service: ? Author Type: Contemporary Or Modern Dancer Type: Progress Notes Filed: 05/20/2020 2:27 PM [...] of Time Out: N/A Sign Out Discussion: [facility]21 NoteHNO ID: [id number] Author: Monica Pérez (Tech) Service: ? Author Type: Contemporary Or Modern Dancer Type: Progress Notes Filed: 05/20/2020 2:23 PM [...] BY: Monica Pérez May 20, 2020 2:22 [facility]03-12-2021 NoteHNO ID: [id number] Author: Monica Pérez (Tech) Service: ? Author Type: Contemporary Or Modern Dancer Type: Progress Notes Filed: 05/20/2020 2:25 PM [...] follow-up SUPPLEMENTAL MATERIAL: Homegoing instructions REFERRAL (RECOMMENDATION): None[facility]2021 NoteHNO ID: [id number] Author: Carmelina Monroe Service: ? Author Type: Physician Type: Progress Notes Filed: 05/05/2020 9:23 AM Note Text: Reviewed mammogram from 05/04/[address] Ryder. Agree with RIGHT tomosynthesis guided biopsy for distortion seen best on screening tomosynthesis views. Chika Hill RN will schedule the patient.[facility]02-24-2021 NoteHNO ID: [id number] Author: Demi Whyte Service: ? Author Type: Sprinkler Irrigation Equipment Mechanic Type: Progress Notes Filed: 05/04/2020 2:41 PM [...] Not applicable SIGNED BY: DEMI WHYTE RDMS RVT May 04, 2020 2:41 [facility] note* Diagnosis Onset Date Resolution Status Diabetes chronic Mixed hyperlipidemia chronic Obesity chronic Meralgia paresthetica of left side acute Sacroiliitis acute Hypertension chronic Mixed hyperlipidemia chronic Type 2 diabetes mellitus [facility] Work Phone: Evaluation note* Diagnosis Onset Date Resolution Status Diabetes chronic Mixed hyperlipidemia chronic Obesity chronic Meralgia paresthetica of left side acute Sacroiliitis acute Hypertension chronic Mixed hyperlipidemia chronic Type 2 diabetes mellitus chr onic Obesity acute Diabetes chronic Hypertension chronic Mixed hyperlipidemia [facility] Work Phone: Evaluation note* Diagnosis [...] ic Type 2 diabetes mellitus chr onic Preop exam for internal medicine noneactive [facility] Work Phone: Evaluation note* Diagnosis Onset Date Resolution Status Health care maintenance acut e Sacroiliitis acute Anxiety and depression chron ic Hypertension chronic Osteoarthritis of knee chron ic Type 2 diabetes mellitus chr onic Hypertension chronic Osteoarthritis of knee chron ic Type 2 diabetes mellitus chr onic Preop exam for internal medicine noneactive Diabetes chronic Hypertension chronic Mixed hyperlipidemia chronic Obesity chronic Cellulitis noneactive [facility] Work Phone: Evaluation note* Diagnosis Onset Date Resolution Status Health care maintenance acut e Sacroiliitis acute Anxiety and depression chron ic Hypertension chronic Osteoarthritis of knee chron ic Type 2 diabetes mellitus chr onic Hypertension chronic Osteoarthritis of knee chron ic Type 2 diabetes mellitus chr onic Preop exam for internal medicine noneactive Diabetes chronic Hypertension chronic Mixed hyperlipidemia chronic Obesity chronic Cellulitis noneactive Preoperative evaluation to r paolae out surgical contraindication acute Hypertension chronic Osteoarthritis of knee chron ic Type 2 diabetes mellitus [facility] Work Phone: Evaluation note* Diagnosis Onset Date Resolution Status Diabetes chronic Hypertension chronic Mixed hyperlipidemia chronic Obesity chronic Anxiety and depression chron ic Hypertension chronic Type 2 diabetes mellitus chr onic Anxiety and depression chron ic Hypertension chronic Mixed hyperlipidemia chronic Type 2 diabetes mellitus chr onic [facility] Work Phone: Evaluation note* Diagnosis Onset Date Resolution Status Anxiety and depression chron ic Hypertension chronic Mixed hyperlipidemia chronic Type 2 diabetes mellitus chr onic Diabetes chronic Hypertension chronic Mixed hyperlipidemia chronic Obesity chronic FH: sudden cardiac (SCD) acute Chronic cough chronic Hypertension chronic Mixed hyperlipidemia [facility] Work Phone: Evaluation note* Diagnosis Onset Date Resolution Status Anxiety and depression chron ic Hypertension chronic Mixed hyperlipidemia chronic Hypertension chronic Mixed hyperlipidemia chronic FH: sudden cardiac (SCD) acute Chronic cough chronic Hypertension chronic Mixed hyperlipidemia [facility] Work Phone: Evaluation note* Diagnosis [...] acute Screening for colon cancer n oneactive [id number] noneactive Yeast dermatitis noneactive [facility] Work Phone: Evaluation note* Diagnosis Onset Date Resolution Status FH: sudden cardiac (SCD) acute Chronic cough chronic Hypertension chronic Mixed hyperlipidemia chronic Diabetes mellitus type 2, co ntrolled, without complications chronic Hypertension chronic Obesity chronic FH: sudden cardiac (SCD) acute Hypertension chronic Mixed hyperlipidemia chronic Encounter for screening breast examination acute Screening for colon cancer n oneactive [id number] noneactive Yeast dermatitis noneactive [facility] Work Phone: Hospital course Narrative No data available for this section [facility] Hospital Discharge instructions No data available for this section [facility] Hospital Discharge instructionsAmbulatory Orders* Prior Authorization Referral - ONC/HEM Location: None [facility] Work Phone: Progress note Author nAselmo Gallagher [facility] Note Date/Time December 15, 2024 3: 30pm [facility] [address] [place] [address] OFFICE VISIT Date of Service: 12/15/24 1451 MR#: [id number] Acct: [id number] Name: KIRILL ALMAZAN Rep #: [id number] : 1955 From: Anselmo Gallagher MD Age/Sex: 69/F Location: [facility] Status: Signed HPI Subjective Date of Service [...] Comes for follow up. Feels tired. [facility] Medical History Iron deficiency anemia Anemia Chronic [...] 32 gauge x #400 ea 05/11/2412/15 Rx 5/32 (BD Ultra-Fine Ale Pen Needle) [...] Cosigner Signature: Date (if applicable) CC: ~ [facility] Work Phone: Reason for referral (narrative)No reason for referral information availableLa Place Medical Services Work Phone: Summary Purpose Family History No [...] Yes June 22, 2020 11:05am Power of National Park Ranger Yes June 22 11:05am Advance Directive Response Recorded Date/ Time Living Will Yes February 16 3:01pm Power of National Park Ranger Yes February 16, 2022 3:01pm Advance Directive Response Recorded Date/ Time Name of Medical Power of National Park Ranger LOUISA ALMAZAN February 16, 2022 3:01pm Living Will Yes February 16 3:01pm Power of National Park Ranger Yes February 16, 2022 3:01pm Advance Directive Response Recorded Date/ Time Living Will Yes February 16 4:01pm Power of National Park Ranger Yes February 16, 2022 4:01pm Advance Directive Response Recorded Date/ Time Living Will Yes October 22 12:45pm Do you have a Healthcare Power of National Park Ranger? 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 EST. 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 EST. 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 EST. 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 EST. CARE - NPP SENT 3 M [...] IN [place] Reason for Visit Health care [facility] Sacroiliitis Anxiety and depression Hypertension Osteoarthritis of [...] left knee Reason for Visit Health care [facility] Sacroiliitis Anxiety and depression Hypertension [...] FAM HX OF SUDDEN CARDIAC (OLEGHE) Annual (BENZENE STILL UTILITY OPERATOR) (Referral) Reason for Visit Hypertension Mixed hyperlipidemia FH: sudden cardiac (SCD) Chronic cough Hypertension Mixed hyperlipidemia Diabetes mellitus type 2, controlled, without complications Hypertension Obesity FH: sudden cardiac (SCD) Hypertension Mixed hyperlipidemia Encounter for screening breast examination Screening for colon cancer [id number] Yeast dermatitis Chief Complaint 3 M FU EORDERS SCREENING Cough 3 M FU FAM HX OF SUDDEN CARDIAC (OLEGHE) Annual (BENZENE STILL UTILITY OPERATOR) (Referral) CAD ASHD Reason for Visit FH: sudden cardiac d eath (SCD) Chronic cough Hypertension Mixed hyperlipidemia Diabetes mellitus type 2, controlled, without complications Hypertension Obesity FH: sudden cardiac (SCD) Hypertension Mixed hyperlipidemia Encounter for screening breast examination Screening for colon cancer [id number] Yeast dermatitis Chief Complaint Admit Date 4 [...] section and content) DATE CREATED AUTHOR 02/17/2021 [facility] ([place]) DATE CREATED AUTHOR AUTHOR'S ORGANIZ ATION 04/12/2021 [facility] DATE CREATED AUTHOR AUTHOR'S ORGANIZ ATION 01/15/2025 [facility] Goals (unrecognized section and content) Goals [...] Status: Active Member Role Status Dates Dr. Marciarmen Tavares MD Primary Care Provider Active Dr. Adriel Burgos MD Attending Provider Active Dr. Kevin Gonzalez DO Referring Provider Active Team Status: Inactive Member Role Status Dates Dr. Maricarmen Tavares MD Primary Care Provider, Refer ring Provider Active Maximiliano Glover NP, LICENSED FUNERAL DIRECTOR AND EMBALMER-C Attending Provider Active Team Status: Inactive Member [...] BE BASED ON THE PRIMARY CLINICAL RECORDS. [employer] provides no warranty or guarantee of the accuracy or completeness of information in this document.
[2025-01-18 06:56] LABS: Hematocrit 37.0 % (37-47); Hemoglobin 10.9 g/dL (12.0-15.0); Immature Granulocytes Count 0.030 X10^3/uL (0.0-0.0); Mean Corp Hgb Conc 29.5 g/dL (32-36); Mean Corpuscular Volume 86.9 fL (81-99); Mean Platelet Vol. 9.7 fl (6.2-12.0); NRBC Flagged by Analyzer 0 % (0-5); Platelet Count 459 K/mm3 (150-450); RBC Distribution Width CV 18.6 % (11.6-14.6); RBC Distribution Width SD 59.0 fl (35.1-43.9); Red Blood Count 4.26 M/mm3 (4.2-5.4); White Blood Count 8.5 K/mm3 (4.4-11.0)
[2025-01-18 07:43] LABS: LDH 136 U/L (84-246)
[2025-01-18 07:56] LABS: Iron 34 ug/dL (50-170); Iron Binding Capacity,Unsat 125 ug/dL (228-428); Magnesium 2.1 mg/dL (1.5-2.2); Vitamin B12 323 pg/mL (180-914)
[2025-01-18 07:57] LABS: AST(SGOT) 11 U/L (<=31); Alanine Aminotransfer ALT/SGPT < 5 U/L (<=34); Albumin, Serum 3.4 g/dL (3.4-4.8); Alkaline Phosphatase 76 U/L (35-104); Anion Gap 12 (5-15); BUN 10 mg/dL (4-19); BUN/Creat Ratio 11.9 RATIO (10-20); Calcium,Total 9.9 mg/dL (7.6-11.0); Carbon Dioxide 25.5 mmol/L (21.0-32.0); Chloride 102 mmol/L (98-108); FOLATES,SERUM (FOLIC ACID) 6.79 ng/mL (4.60-34.80); Globulin 3.9 g/dL (2.2-4.2); Glucose 174 mg/dL (70-99); Potassium 4.3 mmol/L (3.3-5.1)
--- NOTE | 2025-01-18 08:01 | MRI_ITS ---
PROCEDURE: MRI ABD WITH AND W/O CONTRAST 01/18/2025 REASON FOR EXAM: R RENAL MASS TECHNIQUE: Procedure Code: MRIABDWW Modality: MR Procedure: MRI ABD WITH AND W/O CONTRAST Multiplanar and multisequence images were obtained. CONTRAST: Clariscan VOLUME: 20 mL COMPARISON: December 24, 2024 FINDINGS: Liver: Liver is enlarged and diffusely fatty infiltrated. No evidence of iron deposition in the liver at this time. Liver has a non cirrhotic appearance. Water signal mass is present in segment 7 representing a benign cyst measuring 1.8 x 1.7 cm. Biliary: Normal gallbladder. No biliary ductal dilation. Pancreas: No evidence of pancreas divisum. No glandular atrophy, duct dilation or mass. Spleen: Normal Adrenals: Normal Kidneys: Multiple parapelvic cysts are shown involving the left kidney. These are simple and benign. No solid mass is seen on the left. No collecting system dilation on the left. A large heterogeneous solid mass is present occupying the mid and lower pole. There is some mass effect on the renal pelvis and upper pole calices creating some degree of hydronephrosis. The ureter is not distended. Mass measures 9.5 x 8.6 x 9.0 cm. Radiating bands of scar are seen centrally. No perirenal mass or adjacent lymphadenopathy. The renal vein is not distended. The portion adjacent to the hilum is obscured by the mass. Peritoneum / Retroperitoneum: No other mass seen. No free fluid. Lymph Nodes: None appear enlarged Major Vessels: Patent Bones: Unremarkable MRI/MRI Abd WITH and W/O Contrast IMPRESSION: 1. Large mass occupying the mid and lower pole right kidney. Maximal dimensio n 9.5 cm. No thrombus in the vein seen. No lymphadenopathy. Consider renal cell carcinoma versus oncocytoma. Urology con sultation suggested. 2. Mass described above has mass effect upon the renal pelvis creating some de gree of hydronephrosis. 3. Simple parapelvic cysts on the left. Bosniak 1. No follow-up required. 4. Simple cyst in the liver. No follow-up required. Enlarged fatty liver. Reading Location: [id number]
[2025-01-18 08:03] LABS: Ferritin 2441 ng/mL (22-378); Iron Binding Capacity,Total 159 ug/dL (250-450)
== END | disposition home or self-care (01) ==
LOC: OPMRI 06:42
PROVIDERS: PCP Internal Medicine; Referring Provider Internal Medicine Medical Oncology; Visit Provider Internal Medicine Medical Oncology
DX: N28.89 Other specified disorders of kidney and ureter (principal); D50.9 Iron deficiency anemia, unspecified
CPT/HCPCS: 36415; 74183; 80053; 82607; 82728; 82746; 83540; 83550; 83615; 83735; 84100; 85025; A9575

== ENCOUNTER 2025-02-19 10:44 | Inpatient (IN) | payer MEDICARE, SELFPAY ==
--- NOTE | 2025-02-12 08:48 | EKG12_ITS ---
Test Reason : PREOP Blood Pressure : */* mmHG Vent. Rate : 71 BPM Atrial Rate : 71 BPM P-R Int : 154 ms QRS Dur : 90 ms QT Int : 404 ms P-R-T Axes : 41 -2 17 degrees QTcB Int : 439 ms Normal sinus rhythm Normal ECG Confirmed by KELLY ESTES, DIMA ([id number]), content editor DOMITILA SUAREZ ([id number]) on 02/12/2025 10:58:24 AM Referred By: SEAN Confirmed By: DIMA MENDOZA MD
--- NOTE | 2025-02-12 15:54 | PAT.ANESEVAL ---
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 When Was Last Pacemaker Check QUESTION #4 FULL TEXT: You/Your Family Experience fever (hyperthermia) with Anesthesia Last Oral Intake Last Oral intake: Last Oral Intake NPO since Meds taken in AM with sips of water? Meds patient instructed to take am of surgery PONV PONV - building maintenance mechanic: PONV - building maintenance mechanic Female Yes 02/12/25 14:39 HX of Motion Sickness No 02/12/25 14:39 HX of N/V After Surgery No 02/12/25 14:39 Non-Smoker Yes 02/12/25 14:39 Duration of Surgery greater Yes 02/12/25 14:39 than 60 minutes Number of Risk Factors 3 02/12/25 14:39 PONV Score Moderate Risk 02/12/25 14:39 Height & Weight Height & Weight: Anesthesia: Height & Weight Height 5 ft 2 in 01/21/25 14:26 Respiratory Assessment Respiratory Assessment - building maintenance mechanic: Respiratory Tract Infection Hx - building maintenance mechanic Hx Respiratory Tract Infection No 02/12/25 14:39 STOP Sleep Apnea STOP Sleep Apnea - building maintenance mechanic: STOP Sleep Apnea - building maintenance mechanic Hx Hypertension Yes: CONTROLLED WITH MED 02/12/25 14:39 Hx Sleep Apnea No 02/12/25 14:39 CPAP BIPAP Do you snore loudly (louder No 02/12/25 14:39 than talking or can be heard Do you often feel tired/ No 02/12/25 14:39 fatigued/ sleepy during daytime? Has anyone observed you stop No 02/12/25 14:39 breathing during sleep? STOP Results Negative 02/12/25 14:39 QUESTION #5 FULL TEXT : Do you snore loudly (louder than talking or can be heard through closed doors)? 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 Specify any problems Hx of Preganancy in last 3 N/A 02/12/25 14:39 Months Nurse Filling Out Transfusion NBUCHER 02/12/25 14:39 & Questions: Date: 02/12/25 02/12/25 14:39 Time: 14:42 02/12/25 14:39 Patient unable to answer at this time (ie. confused, unrespo /Reproduction History /Reproductive History - building maintenance mechanic: /Reproductive Hx- building maintenance mechanic Hx Now No 02/12/25 14:39 Gestational Age (in weeks): EDC: Hx Hx Para Hx Section SAB No 02/12/25 14:39 Does the father of the baby or his family experience fever w Father of the baby Malignant Hypertension history comment [facility] Medical History (Updated 02/12/25 @ 14:46 by Caitlin José) Low iron Weight loss, non-intentional Iron deficiency anemia Anemia Chronic cough Flu vaccine need Cardiology follow-up encounter History of echocardiogram History of stress test Diabetes FH: sudden cardiac (SCD) Retinal hemorrhage, right eye Hyperopia of both eyes with regular astigmatism and presbyopia Epiretinal membrane (ERM) of left eye Combined forms of age-related cataract, bilateral Venous insufficiency of both lower extremities Insulin dependent diabetes mellitus Kidney stones Injury of head and neck Leg cramps Anxiety and depression Osteoarthritis of knee Meralgia paresthetica of left side Sacroiliitis Sebaceous cyst of breast Axillary adenopathy Radial scar of right breast Mixed hyperlipidemia Diabetes type 2, controlled Brain bleed History of kidney stones Migraine Breast lump Arthritis Seasonal allergic rhinitis Home Medications ?Medication ?Instructions ?Recorded ?Last Taken ?Type psyllium husk 0.4 gram capsule 0.4 g PO DAILY SUPPLEMENT 10/21/23 Unknown History (Metamucil) FreeStyle Azucena 3 Sensor #2 ea 01/20/24 Unknown Rx (blood-glucose sensor) pen needle, diabetic 32 gauge x #400 ea 05/11/24 Unknown Rx 5/32 (BD Ultra-Fine Ale Pen Needle) atorvastatin 10 mg tablet 10 mg PO DAILY HLD #90 tabs 08/11/24 Unknown Rx empagliflozin 25 mg tablet 25 mg PO QDAY DIABETES #90 tabs 09/08/24 Unknown Rx (Jardiance) levocetirizine 5 mg tablet (Xyzal) 5 mg PO QDAY ALLERGIES 09/08/24 Unknown History polysaccharide iron complex 150 mg 150 mg PO ONCE SUPPLEMENT #90 caps 09/15/24 Unknown Rx iron capsule (Ferrex) amlodipine 10 mg tablet 10 mg PO DAILY HTN #90 tabs 10/06/24 Unknown Rx paroxetine HCl 10 mg tablet 10 mg PO DAILY DEPRESSION #90 tabs 10/06/24 Unknown Rx insulin glargine 100 unit/mL (3 18 unit (0.18 mL) subcut QHS 12/30/24 Unknown Rx mL) subcutaneous pen DIABETES #15 mL metoprolol succinate 50 mg 50 mg PO DAILY HTN #90 tabs 01/19/25 Unknown Rx tablet,extended release 24 hr ondansetron 4 mg disintegrating 4 mg PO Q8H PRN nausea and 02/11/25 Unknown Rx tablet vomiting #60 tabs ascorbic acid (vitamin C) 1,000 mg 1,000 mg PO DAILY SUPPLEMENT 02/12/25 Unknown History tablet,extended release (C Complex) insulin lispro 100 unit/mL 1 sliding scale dose subcut TID 02/12/25 Unknown History subcutaneous pen (Humalog KwikPen DIABETES (U-100) Insulin) Allergy/AdvReac Type Severity Reaction Status Date / Time adhesive Allergy Mild Hives Verified 02/12/25 14:29 meperidine (From Demerol) AdvReac Unknown Vomiting Verified 02/12/25 14:29 Family History Mother Breast cancer Arthritis Father Arthritis Diabetes Hypertension High cholesterol Lung cancer Brother Asthma Prostate cancer Sister Sudden cardiac Surgical History Hx of colonoscopy History of total knee replacement (TKR) History of excision of epidermal inclusion cyst S/P lumpectomy, right breast S/P breast biopsy, left Hx of knee surgery Hx of hand surgery Hx of tubal ligation History of Social History household members: spouse current occupational status: retired Smoking Status: Never smoker second hand exposure: No alcohol intake: current alcohol intake frequency: holidays/special occasions only substance use type: does not use what type of physical activity do you participate in: walking frequency: 1-2 times per week seatbelt use: always Audit: Pertinent Findings Pertinent Findings EKG Perinent findings: 02/12/2025. Normal sinus rhythm 71 bpm. Normal EKG. Stress test pertinent findings: 07/15/2023. Normal myocardial perfusion stress test. EF 72%. Echo (EF%) pertinent findings: 07/15/2023. EF 60% pulmonary artery pressure 30. Function normal. Normal size. Consult pertinent findings: Cardiology 06/19/2023. Hypertension. Chronic. Not very well-controlled. Increase amlodipine. Check echo to look at ventricular function. Additional pertinent findings: Hemoglobin 10.9 should be adequate for procedure. Recommendation Anesthesia Recommendation Anesthesia recommendation: OPTIMIZED for anesthesia
[2025-02-13 10:19] LABS: Prothrombin Time (Protime)PT. 15.3 SECONDS (11.7-14.9)
[2025-02-13 10:20] LABS: Partial Thromboplast Time 36.1 Seconds (24.1-36.2)
[2025-02-19] VITALS (19 sets, daily range): BP systolic 109–135; BP diastolic 60–76; PULSE 70–91; RESP 16–20; TEMP 36.2–37.1; O2SAT 88–98; BMI 38.7
--- NOTE | 2025-02-19 11:34 | PRE.ANES_ITS ---
ASA Classification* ASA Classification ASA Classification: 3 Assessment & Plan Anesthesia* Anesthesia Assessment Anesthesia Assessment: Discussed sedation and/or anesthesia options, risks, benefits, and alternatives with patient/parents/legal guardian/POA. Questions invited. The patient/parents/legal guardian/POA seems to understand and agrees to proceed with anesthesia plan. Reviewed the physical assessment, medical history, allergy history and patient home medications list prior to surgery/procedure/anesthetic and documented any changes. Performed airway and anesthesia risk assessments. Anesthesia Type Anesthesia Type: General Anesthesia Focused Assessment* Temperature: 98.1 F Pulse Rate: 91 Blood Pressure: 109/60 Respiratory Rate: 20 Pulse Ox: 98 Airway Assessment Mouth opens: >3 cm Mallampati Score: II Labs Anesthesia Preop lab: CBC WBC, (4.4-11.0) 8.5 K/mm3 01/18/25, 06:45 RBC, (4.2-5.4) 4.26 M/mm3 01/18/25, 06:45 Hgb, (12.0-15.0) 10.9 g/dL L 01/18/25, 06:45 Hct, (37-47) 37.0 % 01/18/25, 06:45 Plt Count, (150-450) 459 K/mm3 H 01/18/25, 06:45 CHEMISTRY Potassium, (3.3-5.1) 4.3 mmol/L 01/18/25, 06:45 Sodium, (133-145) 139 mmol/L 01/18/25, 06:45 Magnesium, (1.5-2.2) 2.1 mg/dL 01/18/25, 06:45 Phosphorus, (2.7-4.5) 2.7 mg/dL 01/18/25, 06:45 BUN, (4-19) 10 mg/dL 01/18/25, 06:45 Creatinine, (0.70-1.20) 0.83 mg/dL 01/18/25, 06:45 Glucose, (70-99) 174 mg/dL H 01/18/25, 06:45 POC Glucose, (74-106) 185 mg/dL H 10/28/23, 06:57 TSH, (0.358-3.740) 1.830 uIU/mL 01/14/24, 08:12 COAG PT, (11.7-14.9) 15.3 SECONDS H 02/13/25, 09:49 Pre-Assessment Diagnosis/Proposed Procedure Planned Operative Procedure(s): (R) Right Robotic Radical Nephrectomy Anesthesia History 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 When Was Last Pacemaker Check QUESTION #4 FULL TEXT: You/Your Family Experience fever (hyperthermia) with Anesthesia Last Oral Intake Last Oral intake: Last Oral Intake NPO since 09:00 02/19/25 11:29 Meds taken in AM with sips of No 02/19/25 11:29 water? Meds patient instructed to take am of surgery PONV PONV - primary care sales representative: PONV - primary care sales representative Female Yes 02/12/25 14:39 HX of Motion Sickness No 02/12/25 14:39 HX of N/V After Surgery No 02/12/25 14:39 Non-Smoker Yes 02/12/25 14:39 Duration of Surgery greater Yes 02/12/25 14:39 than 60 minutes Number of Risk Factors 3 02/12/25 14:39 PONV Score Moderate Risk 02/12/25 14:39 Height & Weight Height & Weight: Anesthesia: Height & Weight Height 5 ft 2 in 02/19/25 11:29 Weight: 96 kg 02/19/25 11:29 Body Mass Index (BMI) 38.7 02/19/25 11:29 Respiratory Assessment Respiratory Assessment - primary care sales representative: Respiratory Tract Infection Hx - primary care sales representative Hx Respiratory Tract Infection No 02/12/25 14:39 STOP Sleep Apnea STOP Sleep Apnea - primary care sales representative: STOP Sleep Apnea - primary care sales representative Hx Hypertension Yes: CONTROLLED WITH MED 02/12/25 14:39 Hx Sleep Apnea No 02/12/25 14:39 CPAP BIPAP Do you snore loudly (louder No 02/12/25 14:39 than talking or can be heard Do you often feel tired/ No 02/12/25 14:39 fatigued/ sleepy during daytime? Has anyone observed you stop No 02/12/25 14:39 breathing during sleep? STOP Results Negative 02/12/25 14:39 QUESTION #5 FULL TEXT : Do you snore loudly (louder than talking or can be heard through closed doors)? 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 Specify any problems Hx of Preganancy in last 3 N/A 02/12/25 14:39 Months Nurse Filling Out Transfusion NBUCHER 02/12/25 14:39 & Questions: Date: 02/12/25 02/12/25 14:39 Time: 14:42 02/12/25 14:39 Patient unable to answer at this time (ie. confused, unrespo /Reproduction History /Reproductive History - primary care sales representative: /Reproductive Hx- primary care sales representative Hx Now No 02/12/25 14:39 Gestational Age (in weeks): EDC: Hx Hx Para Hx Section SAB No 02/12/25 14:39 Does the father of the baby or his family experience fever w Father of the baby Malignant Hypertension history comment Active Medications Active Medications: Current Medications Generic Name Dose Route Start Last Admin Trade Name Freq PRN Reason Stop Dose Admin Lactated Ringer's 1,000 mls @ 15 mls/hr 02/19/25 11:30 IV .Q48H ELENI PFSH Medical History Low iron Weight loss, non-intentional Iron deficiency anemia Anemia Chronic cough Flu vaccine need Cardiology follow-up encounter History of echocardiogram History of stress test Diabetes FH: sudden cardiac (SCD) Retinal hemorrhage, right eye Hyperopia of both eyes with regular astigmatism and presbyopia Epiretinal membrane (ERM) of left eye Combined forms of age-related cataract, bilateral Venous insufficiency of both lower extremities Insulin dependent diabetes mellitus Kidney stones Injury of head and neck Leg cramps Anxiety and depression Osteoarthritis of knee Meralgia paresthetica of left side Sacroiliitis Sebaceous cyst of breast Axillary adenopathy Radial scar of right breast Mixed hyperlipidemia Diabetes type 2, controlled Brain bleed History of kidney stones Migraine Breast lump Arthritis Seasonal allergic rhinitis Home Medications ?Medication ?Instructions ?Recorded ?Last Taken ?Type psyllium husk 0.4 gram capsule 0.4 g PO DAILY SUPPLEME NT 10/21/23 02/17/25 History (Metamucil) FreeStyle Azucena 3 Sensor #2 ea 01/20/24 Unknown Rx (blood-glucose sensor) pen needle, diabetic 32 gauge x #400 ea 05/11/24 Unkno wn Rx (BD Ultra-Fine Ale Pen Needle) atorvastatin 10 mg tablet 10 mg PO DAILY HLD #90 tabs 08/11/24 02/18/25 Rx empagliflozin 25 mg tablet 25 mg PO QDAY DIABETES #90 tabs 09/08/24 02/15/25 Rx (Jardiance) levocetirizine 5 mg tablet (Xyzal) 5 mg PO QDAY ALLERG IES 09/08/24 02/18/25 History polysaccharide iron complex 150 mg 150 mg PO ONCE SUPP LEMENT #90 caps 09/15/24 02/18/25 Rx iron capsule (Ferrex) amlodipine 10 mg tablet 10 mg PO DAILY HTN #90 tabs 10/06/24 02/19/25 Rx paroxetine HCl 10 mg tablet 10 mg PO DAILY DEPRESSION #90 tabs 10/06/24 02/19/25 Rx metoprolol succinate 50 mg 50 mg PO DAILY HTN #90 tabs 01/19/25 02/19/25 Rx tablet,extended release 24 hr ondansetron 4 mg disintegrating 4 mg PO Q8H PRN nausea and 02/11/25 02/19/25 Rx tablet vomiting #60 tabs ascorbic acid (vitamin C) 1,000 mg 1,000 mg PO DAILY S UPPLEMENT 02/12/25 02/18/25 History tablet,extended release (C Complex) insulin lispro 100 unit/mL 1 sliding scale dose subcut TID 02/12/25 02/17/25 History subcutaneous pen (Humalog KwikPen DIABETES (U-100) Insulin) insulin glargine 100 unit/mL (3 13 unit subcut QHS SARIKA BETES 02/19/25 02/18/25 2 0:30 History mL) subcutaneous pen 7 unit Allergy/AdvReac Type Severity Reaction Status Date / Time adhesive Allergy Mild Hives Verified 02/19/25 11:24 meperidine (From Demerol) AdvReac Unknown Vomiting Verified 02/19/25 11:24 Family History Mother Breast cancer Arthritis Father Arthritis Diabetes Hypertension High cholesterol Lung cancer Brother Asthma Prostate cancer Sister Sudden cardiac Surgical History Hx of colonoscopy History of total knee replacement (TKR) History of excision of epidermal inclusion cyst S/P lumpectomy, right breast S/P breast biopsy, left Hx of knee surgery Hx of hand surgery Hx of tubal ligation History of Social History household members: spouse current occupational status: retired Smoking Status: Never smoker second hand exposure: No alcohol intake: current alcohol intake frequency: holidays/special occasions only substance use type: does not use what type of physical activity do you participate in: walking frequency: 1-2 times per week seatbelt use: always Review of Systems (Anesthesia) ROS Narrative System reviewed and no additional complaints, except as documented.
[2025-02-19] MEDS: Lactated Ringers 1,000 ML 15 ML IV (11:54)
--- NOTE | 2025-02-19 12:21 | DCINST_ITS ---
Discharge Instructions DC O2, CPAP, BIPAP needs Home O2 Discharge instructions: No Dressing / Incision Discharge Activity: Return to Normal Activity and May Not Drive (while taking narcotic pain medications.) Dressing / Incision Call your doctor if you observe: Fever of 101 or Higher Suture Line Care: Avoid Pulling/Pushing and Avoid Pinching/Bending Follow Up Care Please Follow Up With: Ed Sen MD When: Call [phone] for an appointment Test Results: Test results from this visit will be discussed in further detail at your follow- up appointment, if applicable. Discharge Plan Admission Admit Date/Time: 02/19/25 10:44 Primary Reason for Your Visit: renal mass Attending Provider: Ed Sen Primary Care Provider: Maricarmen Tavares Instructions Patient Instructions: Nephrectomy Dc, Nephrectomy Ch Dc Discharge Orders/Prescriptions Prescriptions: New docusate sodium [Colace] 100 mg capsule 100 mg PO BID Qty: 20 0RF oxycodone 5 mg tablet 5 mg PO Q6H PRN (Reason: pain) 7 Days Qty: 20 0RF No Action (DME) FreeStyle Azucena 3 Sensor Device See Rx Instructions .Route Qty: 2 8RF Rx Instructions: As directed psyllium husk [Metamucil] 0.4 gram capsule 0.4 g PO DAILY (DME) pen needle, diabetic [BD Ultra-Fine Ale Pen Needle] 32 gauge x 5/32 needle See Rx Instructions .ROUTE .MEDSUPPLY Qty: 400 3RF Rx Instructions: 4 times daily levocetirizine [Xyzal] 5 mg tablet 5 mg PO QDAY Jardiance 25 mg tablet 25 mg PO QDAY Qty: 90 3RF polysaccharide iron complex [Ferrex 150] 150 mg iron capsule 150 mg PO ONCE Qty: 90 3RF ondansetron 4 mg tablet,disintegrating 4 mg PO Q8H PRN (Reason: nausea and vomiting) Qty: 60 1RF C Complex 1,000 mg tablet extended release 1,000 mg PO DAILY insulin lispro [Humalog KwikPen Insulin] 100 unit/mL insulin pen 1 sliding scale dose subcut TID insulin glargine 100 unit/mL (3 mL) insulin pen 13 unit SC QHS atorvastatin 10 mg tablet 10 mg PO DAILY Qty: 90 3RF paroxetine HCl 10 mg tablet 10 mg PO DAILY Qty: 90 1RF amlodipine 10 mg tablet 10 mg PO DAILY Qty: 90 1RF metoprolol succinate 50 mg tablet extended release 24 hr 50 mg PO DAILY Qty: 90 1RF Referrals / Follow Up: Maricarmen Tavares MD [Primary Care Provider, Internal Medicine] Ed Sen MD [Med Staff - Active Staff, Urology]
[2025-02-19] MEDS: Midazolam 2 MG/2 ML Syringe IV (12:45)
[2025-02-19] MEDS: Lidocaine 1% (5 ml sdv) 5 ML Vial IV (12:50)
[2025-02-19] MEDS: Cefazolin 1 GM/5 ML Vial 2 GM IV (13:00)
--- NOTE | 2025-02-19 13:00 | KID_PTH ---
PATIENT: KIRILL NI LOC: MS3 U#:[id number] AGE/SX: 69/F ROOM: [facility] [id number] RE02/19/[address]: Dr. Ed Sen MD : [id number] BED: 1 DIS: 02/21/2025 SPEC #: [id number] RECD: 02/19/25 15:34 STATUS: ZEUS SALINAS #: [id number] RONNELL: 02/19/25 13:[address]: Ed Sen DEPT: SURGICAL PATHOLOGY RECD BY: Mely Gomez ENTERED: 02/22/25 09:16 SP TYPE: KIDNEY OTHR DR: Dr. Maricarmen Tavares MD Tissues: Kidney, NOS Procedures: Immunohistochemical Stains Surgery Specimen Level V IHC Stain ADDITIONAL HEADER OPERATION: Right robotic radical nephrectomy PRE-OP DIAGNOSIS: Central mass in right kidney TISSUE SUBMITTED: A- Right kidney and mass MICROSCOPIC DIAGNOSIS A. Kidney, right, robotic radical nephrectomy: - Renal cell carcinoma, clear cell type, WHO/ISUP grade 3, margins free. - 8.9 cm in greatest dimension. - Confined within the renal capsule, with renal sinus invasion. - pT3a pN - See synoptic report. SYNOPTIC REPORT FOR RENAL CARCINOMA OF THE KIDNEY: Nephrectomy type (p=partial, t=total):?T Laterality (r=right, l=left): R Focality (u=unifocal, m=multifocal):?U Tumor size (cm):?8.9 cm Histologic type:?clear cell renal cell carcinoma Tumor grade (1-4):?3 % sarcomatoid:?0 % rhabdoid: 0 % coagulative necrosis:?approximately 35% Lymphovascular invasion:?not identified ? Tumor extent (n=no, y=yes, na=not applicable): ??? Renal sinus fat invasion:?Y ??? Perinephric fat invasion:?N ??? Pelvicalyceal invasion:?Y ??? Renal vein/branch invasion:?N ??? Vena cava thrombus below diaphragm:?NA ??? Vena cava thrombus above diaphragm:?NA ??? Invasion of vena cava wall:?NA ??? Direct invasion of adrenal gland:?NA ?Non-contiguous adrenal invasion:?NA ??? Beyond Gerota's fascia/in non-adrenal organs:?NA ? Margins (n=negative, p=positive, na=not applicable):?N ??? Location positive margin:?NA ? Regional lymph nodes (na=not applicable): ??? Number examined:?0 ??? Number positive:?NA ? Non-neoplastic kidney:?chronic inflammation Additional findings:?IHC positive for CAIX, AMACR, CD10, PAX8, Vimentin; and negative for CK7, DIONI-3. pTNM:?pT3a N Comments:?NONE ? Pathologic Staging Definitions (pTNM): Primary Tumor (pT) pTX:? Primary tumor cannot be assessed pT0:? No evidence of primary tumor pT1a:?? Tumor </= 4 cm, limited to the kidney pT1b:?? Tumor > 4 cm and </= 7 cm, limited to the kidney pT2a:?? Tumor > 7 cm and </= 10 cm, limited to the kidney pT2b:?? Tumor > 10 cm, limited to the kidney pT3a:?? Tumor invades renal vein/branches, perirenal fat, renal sinus fat?(adipose/soft tissue/small vessels)?or pelvicalyceal system pT3b:?? Tumor extends into vena cava below the diaphragm pT3c:?? Tumor extends into vena cava above the diaphragm or invades vena cava wall pT4:? Tumor invades beyond Gerota's fascia including direct extension to adrenal gland MICROSCOPIC DESCRIPTION Slides are reviewed. All matched controls reacted appropriately. These tests were developed and their performance characteristics determined by [facility]. They may not have been cleared or approved by the U.S. Food and Drug Administration. The FDA has determined that such clearance or approval is not necessary. The above immunohistochemical markers and/or special?stains have been reviewed by the Pathologist. GROSS DESCRIPTION A. Received in formalin labeled with the patient's name and date of . Designated as right kidney and mass is a 1139 g radical nephrectomy with a portion of attached Gerota's fascia, overall measuring 21.1 x 13.4 x 8.9 cm. The attached ureter measures 9.1 cm in length by 0.4 cm in diameter. The renal vein measures 1.2 cm in length by 1.2 cm in diameter. Thrombi is not present. An adrenal gland is not present. Ink lira: Hilar margins and fat: GreenGerota's fascia: OrangePerinephric fat: Black Sectioning reveals that the kidney itself measures 15.9 x 8.4 x 6.8 cm. There is an 8.9 x 7.3 x 5.6 cm turner-pink to red, soft and variegated mass located within the mid portion. The mass involves and grossly obliterates the renal sinus while distorting and compressing the surrounding, focally cystic renal parenchyma. The mass abuts the renal capsule and is located 1.0 cm from the renal vein margin. The remainder of the kidney parenchyma is pale-turner to light brown with a focal possible cyst, 0.3 cm. No definitive lymph nodes are identified. Career Consultant sections are submitted as follows: A1-A2: Hilar marginsA3: Mass to sinusA4-A5: Mass to renal capsuleA6-A7: Mass to perinephric fatA8: Mass to normal renal parenchymaA9: Mass to hilar [id number]: MassA12: Uninvolved renal [id number]: Gerota's fascia Additional telemarketing sales representative sections are submitted in cassettes A14-A19, per map, following histopathologic review. [place] 02/22/2025PT:[id number]
[2025-02-19] MEDS: Lactated Ringers 2,000 ML 2000 ML IV (14:00)
[2025-02-19] MEDS: fentaNYL 100 MCG/2 ML Ampul 200 MCG IV (14:48)
--- NOTE | 2025-02-19 15:20 | PCM.OPRPT ---
Operative Report (Standard) Operative Information Date of Procedure: 02/19/25 Pre-Operative Diagnosis: Very large right renal mass Post-Operative Diagnosis: The same Surgery/Procedure Performed: Robotic assisted radical right nephrectomy grinder set up operator thread: No Type of Anesthesia: General RN Documented Start/Stop Times: Operation Date: 02/19/25 13:00 Case Time Into Pre-Op 02/19/25 11:27 Anesthesia Start 02/19/25 12:45 Into Room 02/19/25 12:45 Procedure Start 02/19/25 13:15 Procedure Start Time: 13:15 Procedure Stop Time: 15:21 Select all DRAINS/GRAFTS/IMPLANTS that apply: Drains Drain details: Smiley catheter Estimated Blood Loss: 100 cc Specimen collected: Yes Description of specimen(s) removed: Right renal mass Description of surgery: This is a 69-year-old female who in workup of anemia was found to have an extremely large right renal mass it did have some characteristics there was suggestive of possible oncocytoma but given given the size of the mass occupying the central portion of the right kidney and no way to save the kidney the only option I think that the best option would be to do a radical nephrectomy as a partial nephrectomy is not amenable. Patient understood this organ to proceed with a laparoscopic robotic assisted assisted right radical nephrectomy. Patient was taken back to the operating room after smooth induction of anesthesia she placed upon the table intubated and placed in full flank position axillary roll in place pressure points were padded the bed was slightly flexed to allow the flank to open up the abdomen was prepped and draped in usual fashion I then made an incision in the middle abdomen and advanced a Veress needle into the peritoneal cavity and then placed my ports and then immediately you could see there is extremely large mass protruding below the liver on the right side the mass made the initial part of this dissection quite difficult as it was right occupying lots of space little little room to work in the abdomen even with the peritoneum and up had to retract the mass up and then reflected the colon off the kidney and then had to retract the fat and all the fat off the kidney to start working below the in the kidney eventually identified the gonadal vein this was transected and ligated then behind this was the ureter and then I went inferior to the ureter and started elevating up the kidney mass but again with a structure large mass with lots of fat in the mass hanging over made the dissection quite difficult had to use the fourth arm to hold up the mass and then auric my way carefully along the inferior vena cava we dissected and found the inferior vena cava and dissected along until we find the renal vein and then renal arteries to dissected behind the renal vein then the renal artery was clipped 2 clips down 1 clip up and transected and the renal vein was 2 clips down 1 clip up and transected this then released the kidney off the hilum I then dissected the kidney off the liver and then dissected the kidney off the lateral aspect of the abdomen and then swept inferiorly dissected the tails of Gerota's fascia transected the ureter and put a clip on the ureter and then put the Endo Catch bag and the kidney was completely free then extremely large mass the robot was then undocked the ports were left in place with a instruments were removed I then scrubbed in and then through the lower port site we put in a 50 mm Endo Catch bag was able to get the large mass into the Endo Catch bag and then we opened up the extraction site in the lower abdomen and then extracted the kidney intact then we closed the extraction site in 2 layers the to fascial layers and then closed and then we closed the AirSeal port site with a [place] stitch once this was closed and all the subcuticular stitch was used to close the skin incision and patient anesthetic is being reversed of no patient did well minimal blood loss only issue at this point is low urine output in the case and is to be monitored closely and were giving her some fluids to try to catch up again is mostly dehydration since there was no blood loss. Surgical Findings: Very large right renal mass nephrectomy completed Complications Complications: No Admit VTE Documentation VTE Present on Admission: No VTE Mechan Device Prophylaxis: SCD's VTE Pharm Prophylaxis ordered?: No
--- NOTE | 2025-02-19 15:50 | PCM.POST.ANE ---
Anesthesia: Postop Eval I Current Vital Signs Temperature: 98.8 F Pulse Rate: 89 Blood Pressure: 127/65 Respiratory Rate: 20 Pulse Ox: 93 Assessment Airway patent: Yes Spontaneous unlabored respirations: Yes nausea: No Vomiting: No Anesthesia Complication: No Fluid Hydration Crystalloid volume administer (ml): 2,000 Total IV fluid infused: 2,000 Progress Note Anesthesia document: Postop Eval 1 completed: Yes
[2025-02-19 17:39] LABS: Hematocrit 34.4 % (37-47); Hemoglobin 10.3 g/dL (12.0-15.0); Immature Granulocytes Count 0.070 X10^3/uL (0.0-0.0); Mean Corp Hgb Conc 29.9 g/dL (32-36); Mean Corpuscular Volume 86.6 fL (81-99); Mean Platelet Vol. 10.0 fl (6.2-12.0); NRBC Flagged by Analyzer 0 % (0-5); Platelet Count 399 K/mm3 (150-450); RBC Distribution Width CV 17.2 % (11.6-14.6); RBC Distribution Width SD 55.4 fl (35.1-43.9); Red Blood Count 3.97 M/mm3 (4.2-5.4); White Blood Count 13.7 K/mm3 (4.4-11.0)
[2025-02-19 17:56] LABS: Anion Gap 12 (5-15); BUN 10 mg/dL (4-19); BUN/Creat Ratio 9.5 RATIO (10-20); Calcium,Total 9.7 mg/dL (7.6-11.0); Carbon Dioxide 25.6 mmol/L (21.0-32.0); Chloride 98 mmol/L (98-108); Estimated Creatinine Clearance 54.90 ml/min (50-250); Glucose 310 mg/dL (70-99); Potassium 4.3 mmol/L (3.3-5.1)
--- NOTE | 2025-02-19 19:45 | POSTOPAN2_ITS ---
Anesthesia Postop Eval I Sum Postop Eval Completion status Anesthesia document: Postop Eval 1 completed: Yes Anesthesia Postop Eval I Summary Anesthesia Postop Eval I Summary: Anesthesia Postop Eval I: Assessment Summary Airway patent Yes 02/19/25 15:50 PRODUCTION FINISHER.CSIR Spontaneous unlabored Yes 02/19/25 15:50 PRODUCTION FINISHER.CSIR respirations Mental status nausea No 02/19/25 15:50 PRODUCTION FINISHER.CSIR Vomiting No 02/19/25 15:50 PRODUCTION FINISHER.CSIR Anesthesia Postop Eval I: Fluid Summary Crystalloid volume administer 2,000 02/19/25 15:50 PRODUCTION FINISHER.CSIR (ml) Colloids volume administered ( ml) Blood Product volume administered (ml) Total IV fluid infused 2,000 02/19/25 15:50 PRODUCTION FINISHER.CSIR Anesthesia Postop Eval I: Summary Notes Anesthesia Complication No 02/19/25 15:50 PRODUCTION FINISHER.CSIR Anesthesia Complication Comment: Post-operative progress note Anesthesia: Postop Eval II Evaluation Mental status: Awake Pain Level: 2 nausea: No Vomiting: No
--- NOTE | 2025-02-19 19:45 | PCM.POSTANE2 ---
Anesthesia Postop Eval I Sum Postop Eval Completion status Anesthesia document: Postop Eval 1 completed: Yes Anesthesia Postop Eval I Summary Anesthesia Postop Eval I Summary: Anesthesia Postop Eval I: Assessment Summary Airway patent Yes 02/19/25 15:50 PERINATAL TECHNICIAN.CSIR Spontaneous unlabored Yes 02/19/25 15:50 PERINATAL TECHNICIAN.CSIR respirations Mental status nausea No 02/19/25 15:50 PERINATAL TECHNICIAN.CSIR Vomiting No 02/19/25 15:50 PERINATAL TECHNICIAN.CSIR Anesthesia Postop Eval I: Fluid Summary Crystalloid volume administer 2,000 02/19/25 15:50 PERINATAL TECHNICIAN.CSIR (ml) Colloids volume administered ( ml) Blood Product volume administered (ml) Total IV fluid infused 2,000 02/19/25 15:50 PERINATAL TECHNICIAN.CSIR Anesthesia Postop Eval I: Summary Notes Anesthesia Complication No 02/19/25 15:50 PERINATAL TECHNICIAN.CSIR Anesthesia Complication Comment: Post-operative progress note Anesthesia: Postop Eval II Evaluation Mental status: Awake Pain Level: 2 nausea: No Vomiting: No
[2025-02-19] MEDS: 0.9% Normal Saline (1000mL) 1,000 ML 125 ML IV (20:39)
[2025-02-19] MEDS: 0.9% Saline Lock 10 ML Syringe IV (20:45)
[2025-02-20] VITALS (8 sets, daily range): BP systolic 107–133; BP diastolic 55–84; PULSE 62–96; RESP 16–18; TEMP 36.4–36.8; O2SAT 92–96
[2025-02-20] MEDS: 0.9% Normal Saline (1000mL) 1,000 ML 125 ML IV (04:39)
[2025-02-20 06:37] LABS: Hematocrit 31.9 % (37-47); Hemoglobin 9.7 g/dL (12.0-15.0); Mean Corp Hgb Conc 30.4 g/dL (32-36); Mean Corpuscular Volume 86.7 fL (81-99); Mean Platelet Vol. 10.3 fl (6.2-12.0); Platelet Count 399 K/mm3 (150-450); RBC Distribution Width CV 17.2 % (11.6-14.6); RBC Distribution Width SD 54.8 fl (35.1-43.9); Red Blood Count 3.68 M/mm3 (4.2-5.4); White Blood Count 8.4 K/mm3 (4.4-11.0)
[2025-02-20 07:03] LABS: Anion Gap 12 (5-15); BUN 9 mg/dL (4-19); BUN/Creat Ratio 9.0 RATIO (10-20); Calcium,Total 8.7 mg/dL (7.6-11.0); Carbon Dioxide 25.6 mmol/L (21.0-32.0); Chloride 99 mmol/L (98-108); Estimated Creatinine Clearance 60.62 ml/min (50-250); Glucose 145 mg/dL (70-99); Potassium 3.9 mmol/L (3.3-5.1)
--- NOTE | 2025-02-20 09:18 | PN.URO_ITS ---
Subjective Subjective Postoperative day #1 status post right radical nephrectomy for a very large renal mass patient is actually doing really well plenty of urine output will Hep-Lock IV fluids DC Smiley catheter Hep-Lock fluids she can ambulate diet as tolerated pain is under control. Progressing nicely Objective Data Objective Data Vital Signs: Vital Signs Temp Pulse Resp BP Pulse Ox O2 Del Method O2 Flow Rate 97.8 F 70 18 107/60 93 Room Air 2 02/20/25 06:34 02/20/25 06:34 02/20/25 06:34 02/20/25 06:34 02/20/25 06:34 02/20/25 06:34 02/19/25 22:34 Oxygen Flow Rate (L/min) 2 Oxygen Delivery Method Room Air Weight: 96 kg Body Mass Index (BMI) 38.7 Intake & Output: Intake and Output for Last 24 Hours 02/18/25 02/19/25 02/20/25 23:59 23:59 23:59 Intake Total 4000 / 4000 1000 / 1000 Output Total 1800 / 1800 1950 / 1950 Balance 2200 / 2200 -950 / -950 Lab / Micro Data 02/20/25 05:35 02/20/25 05:35 Labs: Laboratory Results - last 24 hr 02/19/25 11:23: POC Glucose 200 H 02/19/25 13:10: Blood Type A POSITIVE, Antibody Screen NEGATIVE 02/19/25 17:26: WBC 13.7 H, RBC 3.97 L, Hgb 10.3 L, Hct 34.4 L, MCV 86.6, MCH 25.9 L, MCHC 29.9 L, RDW Std Deviation 55.4 H, RDW Coeff of Francois 17.2 H, Plt Count 399, MPV 10.0, Immature Gran % (Auto) 0.500, Neut % (Auto) 86.9 H, Lymph % (Auto) 7.1 L, Glascock % (Auto) 5.3, Eos % (Auto) 0.0, Baso % (Auto) 0.2, Absolute Neuts (auto) 11.9 H, Absolute Lymphs (auto) 0.97, Nucleated RBC % 0, Sodium 135, Potassium 4.3, Chloride 98, Carbon Dioxide 25.6, Anion Gap 12, BUN 10, Creatinine 1.06, Estim Creat Clear Calc 54.90, Est GFR (MDRD) Non-Af 57 L, B UN/Creatinine Ratio 9.5 L, Glucose 310 H, Calcium 9.7 02/20/25 05:35: WBC 8.4, RBC 3.68 L, Hgb 9.7 L, Hct 31.9 L, MCV 86.7, MCH 26.4 L , MCHC 30.4 L, RDW Std Deviation 54.8 H, RDW Coeff of Francois 17.2 H, Plt Count 399, MPV 10.3, Sodium 136, Potassium 3.9, Chloride 99, Carbon Dioxide 25.6, Anion Gap 12, BUN 9, Creatinine 0.96, Estim Creat Clear Calc 60.62, Est GFR (MDRD) Non-Af 64, BUN/Creatinine Ratio 9.0 L, Glucose 145 H, Calcium 8.7
--- NOTE | 2025-02-20 10:14 | CASEMGMT ---
Dx: Rt Robotic Radical Nephrectomy LACE: 2 6-Clicks:21 Medical record reviewed and patient evaluated for identification of discharge planning needs. Based on this review, at this time criteria are not present to indicate a need for discharge planning. Will remain available to assist with discharge planning needs as identified or requested.
[2025-02-20] MEDS: Insulin Glargine-YFGN 100 UNIT/ML Pen 13 UNIT SC (21:38)
[2025-02-21 02:58] VITALS: BP 129/64; PULSE 90; RESP 16; TEMP 36.8; O2SAT 92
[2025-02-21 08:48] VITALS: BP 139/73; PULSE 95; RESP 16; TEMP 36.6; O2SAT 94
[2025-02-21 08:49] VITALS: BP 139/73; PULSE 95
[2025-02-21] MEDS: Metoprolol(XL)Succ 50 MG Tablet PO (08:49)
--- NOTE | 2025-02-21 09:30 | PCM.DC.SUM ---
Providers Date of Admission: 02/19/25 Date of Discharge: 02/21/25 Primary Care Physician: Dr. Maricarmen Tavares MD Reason For Visit: Right Robotic Radical Nephrectomy Medications at Discharge Home Medications psyllium husk 0.4 gram capsule (Metamucil) 0.4 g PO DAILY SUPPLEMENT 10/21/23 FreeStyle Azucena 3 Sensor (blood-glucose sensor) #2 ea 01/20/24 pen needle, diabetic 32 gauge x 5/32 (BD Ultra-Fine Ale Pen Needle) #400 ea 05/11/24 atorvastatin 10 mg tablet 10 mg PO DAILY HLD #90 tabs 08/11/24 empagliflozin 25 mg tablet (Jardiance) 25 mg PO QDAY DIABETES #90 tabs 09/08/24 levocetirizine 5 mg tablet (Xyzal) 5 mg PO QDAY ALLERGIES 09/08/24 polysaccharide iron complex 150 mg iron capsule (Ferrex) 150 mg PO ONCE SUPPLEMENT #90 caps 09/15/24 amlodipine 10 mg tablet 10 mg PO DAILY HTN #90 tabs 10/06/24 paroxetine HCl 10 mg tablet 10 mg PO DAILY DEPRESSION #90 tabs 10/06/24 metoprolol succinate 50 mg tablet,extended release 24 hr 50 mg PO DAILY HTN #90 tabs 01/19/25 ondansetron 4 mg disintegrating tablet 4 mg PO Q8H PRN nausea and vomiting #60 tabs 02/11/25 ascorbic acid (vitamin C) 1,000 mg tablet,extended release (C Complex) 1,000 mg PO DAILY SUPPLEMENT 02/12/25 insulin lispro 100 unit/mL subcutaneous pen (Humalog KwikPen (U-100) Insulin) 1 sliding scale dose subcut TID DIABETES 02/12/25 docusate sodium 100 mg capsule (Colace) 100 mg PO BID #20 caps 02/19/25 insulin glargine 100 unit/mL (3 mL) subcutaneous pen 13 unit subcut QHS DIABETES 02/19/25 oxycodone 5 mg tablet 5 mg PO Q6H PRN pain 7 days #20 tabs 02/19/25 Hospital Course Summary of Care Provided Minutes Spent on Discharge: 20 Hospital Course: 69-year-old female extremely large mass in the right kidney underwent a laparoscopic robotic assisted right radical nephrectomy postoperative course was unremarkable, yesterday advance to regular diet, Hep-Lock IV fluids, Smiley catheter out, vital signs are stable labs stable she is able to go home today with mild pain medicine and stool softener can resume all her medications follow-up in 2 weeks for checkup Weight / BMI Weight Weight: 96 kg Body Mass Index (BMI) 38.7 ABG / Lab / Microbiology Data 02/20/25 05:35 02/20/25 05:35 Laboratory: Laboratory Results - last 24 hr 02/20/25 11:55: POC Glucose 186 H 02/20/25 14:24: POC Glucose 205 H 02/20/25 17:10: POC Glucose 227 H 02/20/25 21:29: POC Glucose 208 H 02/21/25 06:29: POC Glucose 145 H D/C Instructions Call your doctor if you observe: Fever of 101 or Higher Suture Line Care: Avoid Pulling/Pushing and Avoid Pinching/Bending DC O2, CPAP, BIPAP Needs Home O2 Discharge instructions: No Please Follow Up With: Ed Sen MD When: Call [phone] for an appointment Meaningful Use Info Meaningful Use Meaningful Use Diagnoses (Choose all that apply): None applicable Discharge Plan Admission Admit Date/Time: 02/19/25 10:44 Primary Reason for Your Visit: renal mass Attending Provider: Ed Sen Primary Care Provider: Maricarmen Tavares Instructions Patient Instructions: Nephrectomy Dc, Nephrectomy Ch Dc Discharge Orders/Prescriptions Prescriptions: New docusate sodium [Colace] 100 mg capsule 100 mg PO BID Qty: 20 0RF oxycodone 5 mg tablet 5 mg PO Q6H PRN (Reason: pain) 7 Days Qty: 20 0RF No Action (DME) FreeStyle Azucena 3 Sensor Device See Rx Instructions .Route Qty: 2 8RF Rx Instructions: As directed psyllium husk [Metamucil] 0.4 gram capsule 0.4 g PO DAILY (DME) pen needle, diabetic [BD Ultra-Fine Ale Pen Needle] 32 gauge x 5/32 needle See Rx Instructions .ROUTE .MEDSUPPLY Qty: 400 3RF Rx Instructions: 4 times daily levocetirizine [Xyzal] 5 mg tablet 5 mg PO QDAY Jardiance 25 mg tablet 25 mg PO QDAY Qty: 90 3RF polysaccharide iron complex [Ferrex 150] 150 mg iron capsule 150 mg PO ONCE Qty: 90 3RF ondansetron 4 mg tablet,disintegrating 4 mg PO Q8H PRN (Reason: nausea and vomiting) Qty: 60 1RF C Complex 1,000 mg tablet extended release 1,000 mg PO DAILY insulin lispro [Humalog KwikPen Insulin] 100 unit/mL insulin pen 1 sliding scale dose subcut TID insulin glargine 100 unit/mL (3 mL) insulin pen 13 unit SC QHS atorvastatin 10 mg tablet 10 mg PO DAILY Qty: 90 3RF paroxetine HCl 10 mg tablet 10 mg PO DAILY Qty: 90 1RF amlodipine 10 mg tablet 10 mg PO DAILY Qty: 90 1RF metoprolol succinate 50 mg tablet extended release 24 hr 50 mg PO DAILY Qty: 90 1RF Referrals / Follow Up: Maricarmen Tavares MD [Primary Care Provider, Internal Medicine] Ed Sen MD [Med Staff - Active Staff, Urology] Disposition Disposition (needs filled in before D/C Order can be placed): Home, Self Care
[2025-02-21 10:38] VITALS: BP 137/72; PULSE 95; RESP 16; TEMP 36.4; O2SAT 95
== END 2025-02-21 11:00 | disposition home or self-care (01) | DRG 658 ==
LOC: ACINP 10:47 → MS3 17:31
PROVIDERS: Anesthesiology; Admitting Provider Urology; PCP Internal Medicine; Referring Provider Urology; Visit Provider Urology
PROC: 0TT04ZZ Resection of Right Kidney, Percutaneous Endoscopic Approach (ICD-10-PCS; CPT 50546; principal; 2025-02-19 12:40)
DX: C64.1 Malignant neoplasm of right kidney, except renal pelvis (principal); E11.9 Type 2 diabetes mellitus without complications; I10 Essential (primary) hypertension; Z79.4 Long term (current) use of insulin; N28.89 Other specified disorders of kidney and ureter; Z79.899 Other long term (current) drug therapy
CPT/HCPCS: 36415; 80048; 82962; 85025; 85027; 85610; 85730; 86850; 86900; 86901; 88307; 88341; 88342; 93005; 94668; A4216; J2405